=== PATIENT | female | born 1940 | race Caucasian/White ===

== ENCOUNTER → 2017-05-29 15:37 | Outpatient (CLI) | payer MEDICARE, SELFPAY ==
[2017-05-29 16:09] LABS: Absolute Lymphocyte Count 2.03 X10^3/ul (0.83-4.51); Basophil# 0.03 X10^3/uL; Basophil% 0.4 % (0-1); Eosinophil# 0.31 X10^3/uL; Eosinophils% 3.8 % (0-5); Hematocrit 33.7 % (37-47); Hemoglobin 9.8 g/dl (12.0-15.0); Lymphocyte # 2.03 X10^3/ul (4.0); Lymphocyte % 24.7 % (19-41); Mean Corp Hgb Conc 29.1 g/gl (32-36); Mean Corpuscular Hgb 29.3 pg (27.0-32.0); Mean Corpuscular Volume 100.9 fL (81-99); Monocyte# 0.81 X10^3/uL; Monocyte% 9.9 % (0-10); Neutrophil # 5.02 X10^3/uL (2.7-7.7); Neutrophil % 61.1 % (47-70); Platelet Count 307 K/mm3 (150-450); RBC Distribution Width CV 16.4 % (11.6-14.6); RBC Distribution Width SD 59.9 fl (35.1-43.9); Red Blood Count 3.34 M/mm3 (4.2-5.4); White Blood Count 8.2 K/mm3 (4.4-11.0)
[2017-05-29 16:54] LABS: POSITIVE COUNT NO; POSITIVE DIFFERENTIAL NO; POSITIVE MORPHOLOGY NO
[2017-05-29 17:15] LABS: Albumin, Serum 3.6 g/dL (3.2-5.0); BUN 35 mg/dL (7-18); BUN/Creat Ratio 15.6 RATIO (10-20); Calcium,Total 8.6 mg/dL (8.5-10.1); Chloride 106 mmol/L (98-107); Creatinine, Serum 2.25 mg/dL (0.55-1.02); EST Glomerular Filtration Rate 22 mL/min (>60); Est Glom Filt Rate - Afr Amer 27 mL/min (>60); Glucose 110 mg/dL (74-106); Magnesium 2.9 mg/dL (1.6-2.6); Phosphorus 3.8 mg/dL (2.5-4.9); Potassium 4.6 mmol/L (3.5-5.1); Sodium Level 139 mmol/L (136-145)
[2017-05-29 18:26] LABS: Microalbumin,Random Urine 89.2 mg/L (NO RANGE EST.); Microalbumin:Creatinine Ratio 111.4 mg/g CRE (<30 mg/g CRE)
[2017-05-30 08:49] LABS: PTHIN 97.5 pg/mL (18.4-80.1)
== END ==
PROVIDERS: Family Provider Family Medicine; PCP Family Medicine; Visit Provider Internal Medicine Nephrology
DX: N18.3 Chronic kidney disease, stage 3 (moderate) (principal); D63.1 Anemia in chronic kidney disease; E55.9 Vitamin D deficiency, unspecified; N25.81 Secondary hyperparathyroidism of renal origin
CPT/HCPCS: 36415; 80069; 82043; 82306; 82570; 83735; 83970; 85025

== ENCOUNTER 2017-09-01 09:28 | Outpatient (CLI) | payer MEDICARE, SELFPAY ==
[2017-09-01] VITALS (10 sets, daily range): BP systolic 124–171; BP diastolic 51–70; PULSE 59–63; RESP 12–16; TEMP 36.4–37.1; O2SAT 94–100
--- NOTE | 2017-09-01 16:47 | NURSING ---
blood infusions complete. iv removed. daughter escorting pt out at this time.
== END 2017-09-01 16:45 | disposition home or self-care (01) ==
LOC: MEDOUTP 09:28 → PCU 09:29
PROVIDERS: Family Provider Family Medicine; PCP Family Medicine; Visit Provider Internal Medicine Hematology & Oncology
DX: Z51.89 Encounter for other specified aftercare (principal); N18.4 Chronic kidney disease, stage 4 (severe); D63.1 Anemia in chronic kidney disease
CPT/HCPCS: 36430; 86850; 86900; 86920; 86922; J7040; P9016

== ENCOUNTER 2017-09-08 08:46 | Outpatient (CLI) | payer MEDICARE, SELFPAY ==
[2017-09-08] VITALS (8 sets, daily range): BP systolic 114–154; BP diastolic 51–64; PULSE 55–90; RESP 16–20; TEMP 36.4–36.9; O2SAT 98–100
--- NOTE | 2017-09-08 12:17 | NURSING ---
Prior to 2nd unit of PRBC this RN sat with pt for 15 minutes with infusion running at 15cc/hr. Pt denied any issues or discomfort. Vitals stable. Infusion increased to 200cc/hr
--- NOTE | 2017-09-08 14:35 | NURSING ---
lungs clear but slightly diminished-abd soft-voiding well without pain/burning d/c at this time after 2 units no new home meds no new allergies
== END 2017-09-08 14:48 | disposition home or self-care (01) ==
LOC: MEDOUTP 08:46 → MS3 08:47
PROVIDERS: Family Provider Family Medicine; PCP Family Medicine; Visit Provider Internal Medicine Hematology & Oncology
DX: Z51.89 Encounter for other specified aftercare (principal); N18.4 Chronic kidney disease, stage 4 (severe); D63.1 Anemia in chronic kidney disease
CPT/HCPCS: 36430; 86850; 86900; 86920; 86922; J7040; P9016

== ENCOUNTER 2017-10-08 07:32 | Day surgery (SDC) | payer MEDICARE, SELFPAY ==
[2017-10-08] VITALS (7 sets, daily range): BP systolic 140–158; BP diastolic 53–59; PULSE 58–60; RESP 14–16; TEMP 36.1–36.9; O2SAT 98–100; BMI 18.6
[2017-10-08] MEDS: Cefazolin 2 GM in 0.9% Normal Saline 100 ML IV (09:04)
[2017-10-08] MEDS: Bupivacaine Mpf 0.5% 30 ML VIAL (09:23)
--- NOTE | 2017-10-08 09:52 | PCM.OPRPT ---
Report of Operation Date of Procedure: 10/08/17 Pre-Operative Diagnosis: exhausted vascular access Post-Operative Diagnosis: exhausted vascular access. successful left IJ portacath. Surgery/Procedure Performed:: left IJ portacath with fluoro and ultrasound welt edge rounder: None Type of Anesthesia:: MAC Anesthesiologist: Raphael Roper - ASA3 Specimen's removed: none Estimated Blood Loss (mL): 7 Fluids Replaced: 100 Description of Procedure: The patient was brought to the operating suite. The left/right site was marked in the holding area and the patient concurred this was the planned operative site. Sign was performed verifying patient, site, position, skip antibiotic prophylaxis-2 g of Ancef and DVT prophylaxis with SCDs. Following IV sedation, the left neck and chest were prepped and draped in the usual fashion. Timeout was performed verifying patient, site, position. Local anesthetic was injected and ultrasound was used to identify the jugular vein. A remote pilot operator needle was inserted to the jugular vein under ultrasound guidance with return of venous blood. Next, under ultrasound guidance, a Seldinger needle was used to access the left internal jugular vein without difficulty. Under fluoroscopic control, a guidewire was inserted and advanced the SVC RA region. Local anesthetic was injected and incision made and pocket created for the port site. Next the catheter was tunneled from the wire site incision to the port site incision. Under fluoroscopic control introducer sheath and dilator were inserted over the wire. The wire and dilator removed. The catheter was fed through the introducer suture sheath and adjusted to the SVC RA region. There was good return of venous blood and easy inflow of saline through the system. Fluoroscopy demonstrated good positioning of the catheter. Next the catheter was cut to length affixed to the port with the locking ring and secured in the pocket with 2-2-0 Prolene sutures. Subcutaneous fat closed with interrupted 3-0 Vicryl suture. Skin closed with 4-0 Biosyn interrupted and running subcuticular sutures. Fluoroscopy demonstrated good position of the system. The port was accessed. There was good return of venous blood. Inflow of saline was easy. The port was then flushed with 3 cc of 100 unit per heparin solution. A dressing was applied. The patient was brought to recovery room in stable condition. Grafts/Implants Used: powerport [id number] exp - 01/13/2019 - Admit VTE Documentation VTE Present on Admission: No VTE Mechan Device Prophylaxis: SCD's
--- NOTE | 2017-10-08 09:55 | OP.PCM_ITS ---
Report of Operation Date of Procedure: 10/08/17 Pre-Operative Diagnosis: exhausted vascular access Post-Operative Diagnosis: exhausted vascular access. successful left IJ portacath. Surgery/Procedure Performed:: left IJ portacath with fluoro and ultrasound active directory specialist: None Type of Anesthesia:: MAC Anesthesiologist: Raphael Roper - ASA3 Specimen's removed: none Estimated Blood Loss (mL): 7 Fluids Replaced: 100 Description of Procedure: The patient was brought to the operating suite. The left/right site was marked in the holding area and the patient concurred this was the planned operative site. Sign was performed verifying patient, site, position, skip antibiotic prophylaxis-2 g of Ancef and DVT prophylaxis with SCDs. Following IV sedation, the left neck and chest were prepped and draped in the usual fashion. Timeout was performed verifying patient, site, position. Local anesthetic was injected and ultrasound was used to identify the jugular vein. A helicopter pilot needle was inserted to the jugular vein under ultrasound guidance with return of venous blood. Next, under ultrasound guidance, a Seldinger needle was used to access the left internal jugular vein without difficulty. Under fluoroscopic control, a guidewire was inserted and advanced the SVC RA region. Local anesthetic was injected and incision made and pocket created for the port site. Next the catheter was tunneled from the wire site incision to the port site incision. Under fluoroscopic control introducer sheath and dilator were inserted over the wire. The wire and dilator removed. The catheter was fed through the introducer suture sheath and adjusted to the SVC RA region. There was good return of venous blood and easy inflow of saline through the system. Fluoroscopy demonstrated good positioning of the catheter. Next the catheter was cut to length affixed to the port with the locking ring and secured in the pocket with 2-2-0 Prolene sutures. Subcutaneous fat closed with interrupted 3-0 Vicryl suture. Skin closed with 4-0 Biosyn interrupted and running subcuticular sutures. Fluoroscopy demonstrated good position of the system. The port was accessed. There was good return of venous blood. Inflow of saline was easy. The port was then flushed with 3 cc of 100 unit per heparin solution. A dressing was applied. The patient was brought to recovery room in stable condition. Grafts/Implants Used: powerport [id number] lot [id number] exp - 01/13/2019 - Admit VTE Documentation VTE Present on Admission: No VTE Mechan Device Prophylaxis: SCD's
--- NOTE | 2017-10-08 09:55 | RAD_ITS ---
STUDY: X-RAY CHEST REASON FOR EXAM: Female, 77 years old. Post port placement. TECHNIQUE: Single AP portable view of the chest. COMPARISON: April 10, 2015. FINDINGS: There is a left jugular Port-A-Cath with its tip at the atriocaval junction. There is no pneumothorax. There is persistent elevation of the right hemidiaphragm. The lungs appear clear. There is no demonstrated pleural abnormality. Normal size heart. Normal mediastinum and yeyo. Normal visualized pulmonary arteries. Normal visualized aortic arch and descending thoracic aorta. The thoracic spine is obscured by the mediastinum. There is degenerative osteoarthritis of the bilateral shoulders. There is no demonstrated abnormality of the visualized soft tissue structures of the upper abdomen. RAD/Chest 1 View (Portable) IMPRESSION: Left jugular Port-A-Cath without pneumothorax or other interval change. Electronically Signed: Ramon Polk DO at 11:10 EDT Tel [phone], Service support ,
--- NOTE | 2017-10-08 09:57 | PCM.DC.POR ---
Discharge Diet: No Restrictions - Pain medication may cause nausea. You should typically eat light foods as you take your pain medication. Discharge Activity: Return to Normal Activity, May Shower - with the bandage in place 1-2 days after surgery. DO NOT SHOWER WHEN YOUR PORT IS ACCESSED. Additional Activity Instructions:: May not drive, work with heavy equipment, or sign legal documents for [address] if you are no longer taking narcotic pain medications. You may drive when you are no longer taking pain medications. Additional Dressing/Incision Instructions:: Leave the bandage on for 2-3 days. When you remove the bandage, leave the steri-strips intact until they fall off. Allergies/Adverse Reactions: Allergies adalimumab [From Humira] Allergy (Verified 07/26/17 13:43) Rash ciprofloxacin HCl [From Cipro] Allergy (Verified 07/26/17 13:43) Unknown latex Allergy (Verified 07/26/17 13:43) Rash levofloxacin [From Levaquin] Allergy (Verified 07/26/17 13:43) Unknown lisinopril Allergy (Verified 07/26/17 13:43) Other COUGH Methotrexate Analogues Allergy (Verified 07/26/17 13:43) Hives naproxen Allergy (Verified 07/26/17 13:43) Unknown potassium clavulanate [From Augmentin] Allergy (Verified 07/26/17 13:43) Unknown Sulfa (Sulfonamide Antibiotics) Allergy (Verified 07/26/17 13:43) Unknown amlodipine Adverse Reaction (Severe, Verified 07/26/17 13:43) Unknown haloperidol lactate [From Haldol] Adverse Reaction (Unknown, Verified 07/26/17 13:43) agitation amoxicillin trihydrate [From Augmentin] Adverse Reaction (Verified 07/26/17 13:43) Upset Stomach hydromorphone HCl [From Dilaudid] Adverse Reaction (Verified 07/26/17 13:43) Other HALLUCINATIONS hydroxychloroquine sulfate [From Plaquenil] Adverse Reaction (Verified 07/26/17 13:43) Other VISION ISSUES Medications to take at Discharge Atorvastatin Calcium [Lipitor] 20 mg PO QHS 04/01/15 Isosorbide Mononitrate [Imdur] 30 mg PO DAILY 04/01/15 Metoprolol Tartrate [Lopressor (beta elena)] 100 mg PO BID 04/01/15 Multivit-Min/FA/Lycopen/Lutein [Centrum Silver Tablet] 1 ea PO DAILY 04/01/15 Aspirin [Aspirin, Baby] 81 mg PO DAILY@0800 01/09/16 Hydrocodone/Acetaminophen [Hydrocodone-Acetamin 5-325 mg] 1 ea PO DAILY PRN 01/09/16 Fluticasone 0.05% [Flonase Nasal [place]] 2 spray NASAL DAILY 12/30/16 Nitroglycerin [Nitrostat] 0.4 mg SL PRN PRN 12/30/16 Potassium Chl Eff (For Liquid) [Effer-K 25 Meq Tablet Eff] 25 meq PO DAILY 12/30/16 Hydrochlorothiazide [Hctz] 25 mg PO DAILY 02/16/17 Acetaminophen [Tylenol Tablet] 650 mg PO Q4H PRN PRN tab 02/18/17 cholecalciferol (vitamin D3) 1,000 unit tablet 5,000 unit PO DAILY tab 07/26/17 Cetirizine HCl [Zyrtec] 10 mg PO DAILY 10/08/17 Minoxidil [Loniten] 2.5 mg PO DAILY 10/08/17 Ranolazine [Ranexa] 1,000 mg PO DAILY 10/08/17 Primary Care Physician: Demarco Lopez MD [Primary Care Provider] - Please Follow Up With: Chavez Weiner MD - [phone] When: Please plan to follow up in 7 days in the office.
== END 2017-10-08 11:57 | disposition home or self-care (01) ==
LOC: SDC 07:33 → AC 07:33
PROVIDERS: Family Provider Family Medicine; PCP Family Medicine; Visit Provider Surgery
PROC: (CPT 36561; principal; 2017-10-08 09:20)
DX: Z45.2 Encounter for adjustment and management of vascular access device (principal); D64.9 Anemia, unspecified; I12.9 Hypertensive chronic kidney disease with stage 1 through stage 4 chronic kidney disease, or unspecified chronic kidney disease; N18.3 Chronic kidney disease, stage 3 (moderate); I25.2 Old myocardial infarction; Z95.5 Presence of coronary angioplasty implant and graft; Z86.718 Personal history of other venous thrombosis and embolism
CPT/HCPCS: 36561; 71045; 77001; J7040; J7120; C1788

== ENCOUNTER 2017-10-12 18:16 | Outpatient (CLI) | payer MEDICARE, SELFPAY ==
[2017-10-13] VITALS (9 sets, daily range): BP systolic 114–150; BP diastolic 40–57; PULSE 59–68; RESP 16–18; TEMP 36.6–37.1; O2SAT 95–100
[2017-10-13] MEDS: 0.9% NaCl Peripheral Flush Adult/Peds IV ×2 (15:09→18:40)
--- NOTE | 2017-10-13 18:48 | NURSING ---
FLUSHED PORT W/ HEPARIN. DE-ACCESSED PORT-NO BLEEDING. STERI STRIPS STILL INTACT. NO PAIN.
== END 2017-10-13 18:55 | disposition home or self-care (01) ==
LOC: MEDOUTP 10-13 10:35 → PCU 10-13 10:36
PROVIDERS: Family Provider Family Medicine; PCP Family Medicine; Visit Provider Internal Medicine Hematology & Oncology
DX: Z51.89 Encounter for other specified aftercare (principal); N18.4 Chronic kidney disease, stage 4 (severe); D63.1 Anemia in chronic kidney disease
CPT/HCPCS: 36430; 86850; 86900; 86920; 86922; P9016; A4216

== ENCOUNTER 2017-10-13 10:35 | Outpatient (CLI) | payer MEDICARE, SELFPAY | END 2017-10-13 18:55 | disposition home or self-care (01) | LOC: MEDOUTP 10-23 08:07 | PROVIDERS: Family Provider Family Medicine; PCP Family Medicine; Visit Provider Internal Medicine Hematology & Oncology | DX: Z51.89 Encounter for other specified aftercare (principal) ==

== ENCOUNTER 2017-11-29 10:45 | Day surgery (SDC) | payer MEDICARE, SELFPAY ==
[2017-11-29] VITALS (10 sets, daily range): BP systolic 132–164; BP diastolic 46–66; PULSE 58–66; RESP 14–16; TEMP 36.3–36.6; O2SAT 96–100; BMI 18.8
--- NOTE | 2017-11-29 | IMM_PTH ---
PATIENT: JOSELINE NAVARRETE LOC: EN U#:[id number] AGE/SX: 77/F ROOM: RE11/29/[address]: Dr. Pao Mi MD : 1940 BED: DIS: 11/29/2017 SPEC #: [id number] RECD: 12/03/17 14:14 STATUS: [facility] REQ #: [id number] BRETT: 11/29/17 00:[address]: Pao Mi DEPT: IMMUNOHISTOCHEMISTRY RECD BY: Renata Miller ENTERED: 12/03/17 14:15 SP TYPE: IMMUNO OTHR DR: Dr. Demarco Lopez MD Tissues: A - Stomach, NOS Procedures: H Pylori (initial) PHYSICIAN & INSTITUTION [place] [id number] SPECIMEN INFORMATION: Tissue Source: A ? Antrum of stomach Clinical Info: Heme-positive stool, anemia Specimen Number: [id number] CPT code: 11526 METHODOLOGY: Deparaffinized sections of prefer/formalin-fixed tissue or PAP/DQ stained slides are incubated with monoclonal/polyclonal antibodies/oligonucleotide probes. Localization is made via biotin free immunoperoxidase method. Appropriate controls are performed and reacted as expected. Results on target cell population are indicated in the following table: RESULTS: ANTIBODY / CLONE RESULT Block A H Pylori (polyclonal) negative These tests were developed and their performance characteristics determined by [facility]. They may not have been cleared or approved by the U.S. Food and Drug Administration. The FDA has determined that such clearance or approval is not necessary. INTERPRETATION: A. Antrum of stomach, biopsy: Negative for Helicobacter pylori organisms. SJ:kei 12/04/17
--- NOTE | 2017-11-29 12:00 | EGD_PTH ---
PATIENT: JOSELINE NAVARRETE LOC: EN U#:[id number] AGE/SX: 77/F ROOM: RE11/29/[address]: Dr. Pao Mi MD : 1940 BED: DIS: 11/29/2017 SPEC #: [id number] RECD: 11/29/17 14:22 STATUS: [facility] GERMAIN #: [id number] BRETT: 11/29/17 12:[address]: Pao Mi DEPT: SURGICAL PATHOLOGY RECD BY: Cheryl Cisneros ENTERED: 11/30/17 08:47 SP TYPE: EGD BIOPSY OT DR: Dr. Demarco Lopez MD Tissues: A - Gastric mucous membrane B - COLON BIOPSY Procedures: Surgery Specimen Level IV HEADER OPERATION: Colonoscopy, EGD ([facility]) PRE-OP DIAGNOSIS: Heme-positive stools and anemia TISSUE SUBMITTED: A. Antrum of stomach, B. Random colonic biopsies of mucosa MICROSCOPIC DIAGNOSIS A. Gastric antrum, biopsy: Mild gastritis. B. Colon, random biopsy: Fragments of colonic mucosa with a few pigment laden macrophages, consistent with melanosis coli. SJ:kei 12/03/17 COMMENT A. The results of immunohistochemistry for Helicobacter pylori will be reported separately ([id number]). MICROSCOPIC DESCRIPTION Slides are reviewed. A. The specimen shows fragments of gastric mucosa with chronic inflammatory cell infiltrates in the lamina propria consisting of lymphocytes and plasma cells, consistent with mild chronic gastritis. GROSS DESCRIPTION A - Received in fixative is one container labeled with the patient's name and designated gastric antrum. The specimen consists of multiple irregular fragments of light neely soft tissue that in aggregate measure 0.4 x 0.2 x 0.1 cm. The specimen is totally submitted in one cassette. B - Received in fixative is one container labeled with the patient's name and designated random mucosa. The specimen consists of two irregular fragments of light neely soft tissue that in aggregate measure 0.3 x 0.3 x 0.1 cm. The specimen is totally submitted in one cassette. / AM:kei 11/30/17 TC:3 CPT: 75319 x2
--- NOTE | 2017-11-30 12:08 | PCM.OPRPT ---
Report of Operation Date of Procedure: 11/29/17 Pre-Operative Diagnosis: anemia, heme positive stools Post-Operative Diagnosis: same, friable mucosa of right colon - no definitive lesions seen Surgery/Procedure Performed:: colonoscopy with control of bleeding and mucosal biopsies. esophagogastroduodenoscopy with biopsies Description of Surgical Findings:: right colon with bleeding site noted at ileocecal valve area and right hepatic flexure area - bleeding stopped with injection of epinephrine, no definitive lesion seen, active bleeding as evidenced with bright red blood stopped with this, blood flecks noted throughout colon - mostly right colon, diverticulosis, hemorrhoids, minimal antritis with biopsies taken, very small hiatal hernia - no esophagitis seen, no lesions seen in duodenum Type of Anesthesia:: MAC Anesthesiologist: Donya Beckman Specimen's removed: mucosal biopsy of antrum, random mucosal biopsies of right colon Estimated Blood Loss (mL): minimal Fluids Replaced: see anesthesia note Description of Procedure: After informed consent was given, the patient was brought to the endoscopy suite. Appropriate time out protocol was followed. She was placed in the supine position. Appropriate cardiac, blood pressure, and pulse oximetry monitoring was placed. After stable vital signs were noted, the patient was given intravenous conscious sedation. The posterior pharynx was sprayed with lidocaine spray times two and a bite block was placed. The patient was then placed in the left lateral decubitis position. The upper endoscope was lubricated and inserted into the patients mouth and then carefully placed into the patients throat. The patient was asked to swallow and the endoscope was then easily advanced into the patients esophagus. The endoscope was further advanced down into the patients stomach, then past the pylorus, then past the duodenal bulb and then to the second portion of the duodenum. There were no lesions noted in the duodenum. The endoscope was then retracted back into the stomach. Very slight spotty erythema was noted of the antrum of the stomach and therefore mucosal biopsies were taken with cold grasper forceps. A retroflex view of the stomach revealed no evidence of any masses. A small hiatal hernia was noted. No ulcers, no strictures, no suspicious lesions were noted. The endoscope was retracted into the esophagus. The gastroesophageal junction appeared normal. The remainder of the esophagus was normal. The upper endoscope was removed intact. The next procedure was the colonoscopy. The colonoscope was lubricated and carefully inserted into the patients anus. It was then advanced into the rectum, then into the sigmoid colon, then into the left descending colon, past the splenic flexure, into the transverse colon, past the hepatic flexure, then down into the right descending colon and into the cecum. The cecum was identified by confluence of the tenae coli, appendiceal orifice, identification of the ileocecal valve, external pressure, and transillumination. Of note, there was blood flecks noted throughout the colon, however, bright red blood was noted in the right colon. The terminal ileum was intubated - no blood was noted coming from the small intestine. A small punctate site of active bleeding was noted at the ileocecal valve area, the bleeding was stopped with injections of epinephrine. No definitive lesion was noted at this site. The patient was noted to have a small AVM of the right colon, however, no active bleeding or evidence of bleeding was noted at this site. At the right hepatic flexure, there was another site noted of punctate active bleeding, this was controlled with injections of epinephrine and no bleeding was noted after this was done. Because no actual definitive lesion was noted - random mucosal biopsies (of the right colon) were taken with hot grasper forceps to rule out idiopathic colitis or ischemic colitis/etc. Because of the bleeding, injections of epinephrine were done at each of these sites to ensure no active bleeding. No active bleeding was noted. The colonoscope was slowly retracted back and the entire colonic mucosa was examined. There was no evidence of extrinsic compression and no inflammatory changes were noted. No intraluminal obstructing lesions, no strictures, and no ulcers were noted. No masses or polyps were noted. There were multiple small and large diverticula noted in the sigmoid colon, no bleeding was noted at any of these sites. Retroflex view in the rectum revealed no lesions in the rectal vault except for hemorrhoidal changes. The colonoscope was removed intact. Patient tolerated procedure well. - Complications none noted
== END 2017-11-29 15:09 | disposition home or self-care (01) ==
LOC: EN 10:46 → AC 10:47
PROVIDERS: Family Provider Family Medicine; PCP Family Medicine; Visit Provider Surgery
PROC: 0DJD8ZZ Inspection of Lower Intestinal Tract, Via Natural or Artificial Opening Endoscopic (ICD-10-PCS; CPT 45378; principal; 2017-11-29 11:55)
DX: K29.70 Gastritis, unspecified, without bleeding (principal); K44.9 Diaphragmatic hernia without obstruction or gangrene; Q27.33 Arteriovenous malformation of digestive system vessel; K64.8 Other hemorrhoids; K57.30 Diverticulosis of large intestine without perforation or abscess without bleeding; I12.9 Hypertensive chronic kidney disease with stage 1 through stage 4 chronic kidney disease, or unspecified chronic kidney disease; N18.4 Chronic kidney disease, stage 4 (severe); D63.1 Anemia in chronic kidney disease; I25.10 Atherosclerotic heart disease of native coronary artery without angina pectoris; E78.00 Pure hypercholesterolemia, unspecified; G62.9 Polyneuropathy, unspecified; M06.9 Rheumatoid arthritis, unspecified; M35.00 Sjogren syndrome, unspecified; I25.2 Old myocardial infarction; Z78.0 Asymptomatic menopausal state; Z86.718 Personal history of other venous thrombosis and embolism; Z87.19 Personal history of other diseases of the digestive system; Z87.440 Personal history of urinary (tract) infections; Z95.5 Presence of coronary angioplasty implant and graft; Z79.82 Long term (current) use of aspirin; Z79.899 Other long term (current) drug therapy
CPT/HCPCS: 43239; 45380; 88305; 88342; J7120; A4216; J2405

== ENCOUNTER 2017-12-08 10:22 | Outpatient (CLI) | payer MEDICARE, SELFPAY ==
[2017-12-08] VITALS (11 sets, daily range): BP systolic 132–196; BP diastolic 39–70; PULSE 60–68; RESP 16–20; TEMP 36.4–37.1; O2SAT 97–100; BMI 19.6
[2017-12-08] MEDS: Furosemide 20 MG/2 ML VIAL IV (14:42)
== END 2017-12-08 18:41 | disposition home or self-care (01) ==
LOC: MEDOUTP 10:22 → ICU 10:26
PROVIDERS: Family Provider Family Medicine; PCP Family Medicine; Visit Provider Internal Medicine Hematology & Oncology
DX: Z51.89 Encounter for other specified aftercare (principal); N18.4 Chronic kidney disease, stage 4 (severe); D63.1 Anemia in chronic kidney disease
CPT/HCPCS: 36430; 86644; 86850; 86900; 86920; 86922; P9016; J1940

== ENCOUNTER → 2018-02-18 06:32 | Outpatient (CLI) | payer MEDICARE, SELFPAY ==
--- NOTE | 2018-02-18 11:21 | STRESSREP_ITS ---
Stress Test Report Pharmacologic myocardial perfusion stress test. 77-year-old lady with a history of chest pain and coronary artery disease. Stress protocol: Resting EKG demonstrates sinus rhythm with a rate of 65 bpm right bundle branch block is noted. 0.4 mg of regadenoson was infused per usual protocol followed by rapid intravenous saline flush injection continuous EKG monitoring was performed. The maximum heart rate attained was 81 bpm which was 57% of maximum predicted heart rate the maximum workload was 1 metabolic equivalent. At rest there were no ST or T wave changes were noted at peak infusion no ST or T wave changes were noted. Patient maintained sinus rhythm throughout the recording. The resting blood pressure 122/80 with a final blood pressure 144/70. Myocardial perfusion protocol. 10.6 mCi of technetium 99m sestamibi was injected at rest. 0.4 mg of regadenoson was infused per usual protocol. At peak infusion 31.2 mCi of t echnetium 99m sestamibi was injected stress images were obtained stress and rest images were reconstructed and compared in the short axis vertical long horizontal long axis. Gated images were also obtained Perfusion SPECT analysis: Review of the stress images demonstrate normal uptake of tracer noted in all areas of myocardium except for a focal area at the apex. This defect is present on the stress and rest images to a similar extent suggestive of a previous focal apical infarct. No reversibility is noted suggest ischemia. Gated SPECT analysis: Fraction is 52% with mild hypokinesis of the apex. Conclusion: Pharmacologic myocardial perfusion stress test with evidence of previous apical infarct. Apical hypokinesis noted. Preserved ejection fraction.
== END ==
PROVIDERS: Family Provider Family Medicine; PCP Family Medicine; Referring Provider Physician Assistant Medical; Visit Provider Physician Assistant Medical
DX: R07.9 Chest pain, unspecified (principal)
CPT/HCPCS: 78452; 93017; A9500; A4216; J2785

== ENCOUNTER 2018-06-06 16:48 | Observation (INO) | payer MEDICARE, SELFPAY ==
[2018-05-09 14:41] VITALS: BMI 19.1
[2018-06-06] VITALS (7 sets, daily range): BP systolic 142–198; BP diastolic 60–93; PULSE 67–74; RESP 14–19; TEMP 36.2–37; O2SAT 97–98; BMI 19.1; BMI 19.5; BMI 19.6
--- NOTE | 2018-06-06 17:32 | RAD_ITS ---
STUDY: X-RAY CHEST REASON FOR EXAM: Female, 77 years old. High blood pressure TECHNIQUE: PA and lateral views of the chest. COMPARISON: 10/08/2017 FINDINGS: There is hyperinflation of the lungs consistent with chronic obstructive lung disease (COPD). Elevated right hemidiaphragm. Left chest wall Mediport with tip in the cavoatrial junction. No acute airspace disease. There is borderline cardiomegaly. Normal mediastinum and yeyo. Normal visualized pulmonary arteries. Normal visualized aortic arch and descending thoracic aorta. Normal visualized thoracic spine. Normal visualized ribs, clavicles, and shoulders. There is no demonstrated abnormality of the visualized soft tissue structures of the upper abdomen. RAD/Chest PA and Lateral IMPRESSION: COPD. Elevated right hemidiaphragm. No acute airspace disease. Electronically Signed: Goyo Tobias DO at 19:09 EST Tel , Service support ,
--- NOTE | 2018-06-06 17:32 | EKG12_ITS ---
Test Reason : PALPS Blood Pressure : / mmHG Vent. Rate : 069 BPM Atrial Rate : 069 BPM P-R Int : 168 ms QRS Dur : 150 ms QT Int : 446 ms P-R-T Axes : 056 -66 071 degrees QTc Int : 477 ms Normal sinus rhythm Possible Left atrial enlargement Right bundle branch block Left anterior fascicular block Bifascicular block Left ventricular hypertrophy with repolarization abnormality Cannot rule out Septal infarct , age undetermined Abnormal ECG Confirmed by BÁRBARA FRANKLIN MD ([id number]), photograph editor DAWNA LLOYD ([id number]) on 06/10/2018 5:13:26 PM Also confirmed by CRISTAL ALFORD MD ([id number]), photograph editor DAWNA LLOYD ([id number]) on 06/10/2018 5:14:06 PM Referred By: Confirmed By:CRISTAL ALFORD MD
--- NOTE | 2018-06-06 18:42 | ED.DCSUM_ITS ---
- ER Visit Summary Date of Service: 06/06/18 Chief Complaint: Hypertension History of Present Illness: The patient is a 77 F who presents with an elevated blood pressure that began last night. Patient states it has gradually gotten worse. Patient saw her primary care physician today. Patient states her blood pressure at her primary care physician's office was 196/91. Patient admits to some mild chest pain and shortness of breath. Patient also admits to a mild headache. Patient denies any visual changes. Patient denies any nausea or vomiting. Patient denies any fevers or chills. Physical Examination: Vital signs are stable. Patient is afebrile. Patient is in no acute distress. Oral mucosa is pink and moist. Neck is supple. Trachea is midline. There is no JVD noted. Heart was regular rate and rhythm. Lungs are clear and equal bilateral. Abdomen is soft. Bowel sounds are normal. There is no tenderness. There is no guarding noted. Skin is warm dry. Cranial nerves II through XII are intact. There are no focal motor or sensory deficits noted. The remaining physical exam is within normal limits. Test Results: EKG showed a normal sinus rhythm with a rate of 69. There is a right bundle branch block and left anterior fascicular block. This is unchanged compared to previous EKG dated 01/10/2016. CBC showed a mild anemia with a hemoglobin of 11.2 and hematocrit 35.5 creatinine was 1.79 but this is improved compared to previous results. Troponin was slightly elevated at 0.055. Urinalysis showed leukocyte esterase of 100, positive nitrites 5-10 white blood cells and 2+ bacteria. Emergency Department Course and Treatment: Patient was given a dose of labetalol here. Patient's blood pressure improved to 150 systolic. Patient's blood pressure then started to increase again and went back up to 200 systolic. On reevaluation, patient's blood pressure is 162/71. Patient was given aspirin and placed on nitroglycerin paste. Case was discussed with the hospitalist. He will admit the patient to his service. Patient understood and was agreeable with the plan. All questions were answered. Disposition: Admit to hospital Impression: 1. Elevated troponin 2. Hypertension This note was generated with [employer] dictation software. It may contain incorrect words, spelling, and punctuation that were not noted in review of the chart p rior to signing ED Disposition - Plan for ED Patient: Disposition: Acute Care Hospital [facility] Diagnosis: Elevated troponin, Hypertension Referrals: Demarco Lopez MD [Primary Care Provider] -
[2018-06-06 19:01] LABS: Absolute Lymphocyte Count 1.52 X10^3/ul (0.83-4.51); Absolute Neutrophil Count 5.8 X10^3/uL (2.0-7.7); Basophil# 0.02 X10^3/uL; Basophil% 0.2 % (0-1); Eosinophil# 0.26 X10^3/uL; Hematocrit 35.5 % (37-47); Hemoglobin 11.2 g/dl (12.0-15.0); Lymphocyte # 1.52 X10^3/ul (4.0); Lymphocyte % 17.7 % (19-41); Mean Corp Hgb Conc 31.5 g/gl (32-36); Mean Corpuscular Hgb 31.7 pg (27.0-32.0); Mean Corpuscular Volume 100.6 fL (81-99); Mean Platelet Vol. 11.8 fl (6.2-12.0); Monocyte# 0.98 X10^3/uL; Monocyte% 11.4 % (0-10); Neutrophil # 5.78 X10^3/uL (2.7-7.7); Neutrophil % 67.4 % (47-70); POSITIVE COUNT NO; POSITIVE DIFFERENTIAL NO; POSITIVE MORPHOLOGY NO; Platelet Count 161 K/mm3 (150-450); RBC Distribution Width CV 15.1 % (11.6-14.6); RBC Distribution Width SD 54.5 fl (35.1-43.9); Red Blood Count 3.53 M/mm3 (4.2-5.4); White Blood Count 8.6 K/mm3 (4.4-11.0)
[2018-06-06 19:20] LABS: Anion Gap 7 (5-15); BUN 37 mg/dL (7-18); BUN/Creat Ratio 20.7 RATIO (10-20); Calcium,Total 9.4 mg/dL (8.5-10.1); Chloride 108 mmol/L (98-107); Creatinine, Serum 1.79 mg/dL (0.55-1.02); EST Glomerular Filtration Rate 29 mL/min (>60); Est Glom Filt Rate - Afr Amer 35 mL/min (>60); Estimated Creatinine Clearance 21.33 ml/min; Glucose 128 mg/dL (74-106); Potassium 4.1 mmol/L (3.5-5.1); Sodium Level 140 mmol/L (136-145)
[2018-06-06 19:30] LABS: Mucous, Urine 0 SEEN /hpf (<or=2+); Red Blood Cells-Urine 0 SEEN /hpf (0-5)
[2018-06-06 19:40] LABS: Color, Urine Yellow (Yellow); Glucose, Dipstick Normal (Normal); Ketone-Dipstick Negative (Negative); Leukocyte Esterase-Dipstick 100 /ul (Negative); Nitrite-Dipstick Positive (Negative); Occult Blood-Urine 10 /ul (Negative); Protein-Dipstick 100 mg/dl (Negative); Urine Bilirubin Dipstick Negative (Negative); Urine Clarity Sl. Cloudy (Clear); Urine Urobilinogen Normal (Normal); Urine pH 6.5 (5.0 - 8.0)
[2018-06-06 19:48] LABS: Bacteria 2+ /hpf (None Seen); White Blood Cells 5-10 SEEN /hpf (0-5)
[2018-06-06 19:49] LABS: Squamous Epithelial Cells - UA 0-5 SEEN /hpf (5-10)
--- NOTE | 2018-06-06 20:33 | PCM.HP.STD ---
Problem List (1) Hypertensive emergency Status: Acute (2) Elevated troponin Status: Acute (3) Anemia Status: Chronic History of Present Illness Date of Admission: 06/06/18 Chief Complaint: elevated blood pressure The patient is a 77 year old F with a significant history of CAD; CHF; hypertension; arthritis; Sjogren; and chronic anemia who follows up with Dr. 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 Patient went to Dr. Azul office for blood work for her chronic anemia. Whiles at Dr. Azul office her systolic blood pressure was in the 190s. Patient was advised to call her PCP. Subsequently her PCPs office advised her to come to the emergency department. Associated with her symptoms was a funny feeling in her chest; shortness of breath and headache. At the emergency department patient was found to have severely elevated blood pressure of 198/89. Patient was given labetalol IV. While at our emergency department she reported that her chest pain had resolved. Troponin level at emergency department was elevated. Patient was found to have abnormal urinalysis at the emergency department. Patient reports no urinary symptoms but she reports itchiness at her vaginal area. Past Medical History Past Medical History (Chronic Problems): Chronic Problems (Last Reviewed 06/07/18 @ 04:05 by Jose A Raines MD) Anemia (Chronic) Atherosclerotic heart disease of [place] coronary artery without angina pectoris (Chronic) Hx of right coronary artery stent placement (Chronic) PTCA & NGIHAT stent to ramus intermidius & NIGHAT to RCA, 05/21/09 @ [facility]; Congestive heart failure (Chronic) Diastolic dysfunction (Chronic) Left ventricular hypertrophy (Chronic) Chronic kidney disease (CKD), stage III (moderate) (Chronic) CAD (coronary artery disease) (Chronic) Status post remote stenting Rheumatoid arthritis (Chronic) Sjoegren syndrome (Chronic) Hypertension (Chronic) Hyperlipemia (Chronic) GI (gastrointestinal bleed) (Chronic) Medical History: Medical History (Last Reviewed 06/07/18 @ 04:05 by Jose A Raines MD) Atherosclerotic heart disease of [place] coronary artery without angina pectoris (Chronic) I25.10 Congestive heart failure (Chronic) I50.9 Diastolic dysfunction (Chronic) I51.9 Left ventricular hypertrophy (Chronic) I51.7 Chronic kidney disease (CKD), stage III (moderate) (Chronic) CAD (coronary artery disease) (Chronic) I25.10 Status post remote stenting Hypertension (Chronic) I10 Hyperlipemia (Chronic) E78.5 ARF (acute renal failure) (Acute) Anemia D64.9 Shortness of breath R06.02 Syncope and collapse R55 Allergies adalimumab [From Humira] Allergy (Verified 06/06/18 16:52) Rash ciprofloxacin HCl [From Cipro] Allergy (Verified 06/06/18 16:52) Unknown latex Allergy (Verified 06/06/18 16:52) Rash levofloxacin [From Levaquin] Allergy (Verified 06/06/18 16:52) Unknown lisinopril Allergy (Verified 06/06/18 16:52) Other COUGH Methotrexate Analogues Allergy (Verified 06/06/18 16:52) Hives naproxen Allergy (Verified 06/06/18 16:52) Unknown potassium clavulanate [From Augmentin] Allergy (Verified 06/06/18 16:52) Unknown Sulfa (Sulfonamide Antibiotics) Allergy (Verified 06/06/18 16:52) Unknown amlodipine Adverse Reaction (Severe, Verified 06/06/18 16:52) Unknown haloperidol lactate [From Haldol] Adverse Reaction (Unknown, Verified 06/06/18 16:52) agitation amoxicillin trihydrate [From Augmentin] Adverse Reaction (Verified 06/06/18 16:52) Upset Stomach hydromorphone HCl [From Dilaudid] Adverse Reaction (Verified 06/06/18 16:52) Other HALLUCINATIONS hydroxychloroquine sulfate [From Plaquenil] Adverse Reaction (Verified 06/06/18 16:52) Other VISION ISSUES Home Medications: Ambulatory Orders Medication Instructions Recorded Isosorbide Mononitrate [Imdur] 30 mg PO DAILY 04/01/15 Metoprolol Tartrate [Lopressor 50 mg PO BID 04/01/15 (beta elena)] Multivit-Min/FA/Lycopen/Lutein 1 ea PO DAILY 04/01/15 [Centrum Silver Tablet] Fluticasone 0.05% [Flonase Nasal 2 spray NASAL DAILY PRN 12/30/16 [place]] Potassium Chl Eff (For Liquid) 12.5 meq PO DAILY 12/30/16 [Effer-K 25 Meq Tablet Eff] Hydrochlorothiazide [Hctz] 25 mg PO DAILY 02/16/17 ranolazine ER 1,000 mg 1,000 mg PO DAILY #90 tab 01/11/18 tablet,extended release,12 hr nitroglycerin 0.4 mg sublingual 0.4 mg SUBLINGUAL PRN PRN #25 tab 01/31/18 tablet Cholecalciferol (Vitamin D3) 5,000 unit PO DAILY 06/06/18 [Vitamin D3] Cyanocobalamin (Vitamin B-12) 1,000 mcg PO DAILY 06/06/18 [B-12] Vit C/E/Zn/Coppr/Lutein/Zeaxan 1 each PO BID 06/06/18 [Preservision Areds 2 Softgel] Surgical History: Surgical History (Last Reviewed 06/07/18 @ 04:05 by Jose A Raines MD) Hx of right coronary artery stent placement (Chronic) Z95.5 PTCA & NIGHAT stent to ramus intermidius & NIGHAT to RCA, 05/21/09 @ [facility]; Surgical History: angioplasty, - - Carpal tunnel syndrome Smoking Status: Never smoker Alcohol: None - *Family History Maternal Family History: Family History (Last Reviewed 05/09/18 @ 15:13 by Nahid Hernandez MD) Father No problems noted. History Items: Cancer - breast, - Paternal Family History: Family History (Last Reviewed 05/09/18 @ 15:13 by Nahid Hernandez MD) Father No problems noted. History Items: Cancer - breast, - Review of Systems Constitutional: Denies: Chills, Fever, Weight Change HEENT: Reports: Head Aches. Denies: Sinus Congestion, Sinus Drainage Cardiovascular: Reports: Chest Pain. Denies: Palpitations Respiratory: Reports: Shortness of Breath. Denies: Cough, Sputum production Gastrointestinal: Denies: Abdominal Pain, Nausea, Vomiting Genitourinary: Denies: Dysuria Musculoskeletal: Denies: Muscle pain Skin: Denies: Rash, Wounds Neurological: Denies: Numbness, Tingling, Focal weakness Psychiatric: Denies: Anxiety, Depression, Homicidal Ideations, Suicidal Ideations Hematologic/ Lymphatic: Denies: Easy Bruising, Easy Bleeding VTE Information - Inpt Only VTE Present on Admission: No VTE Mechan Device Prophylaxis: None VTE Pharm Prophylaxis ordered?: Yes Patient Problems: Active and Suspected Problems (Last Reviewed 06/07/18 @ 04:05 by Jose A Raines MD) Elevated troponin (Acute) Hypertensive emergency (Acute) - Physical Exam General: Alert, Oriented x3, Cooperative HEENT: Atraumatic, PERRLA, EOMI, Normocephalic Neck: Supple, Trachea Midline Lungs: Clear to auscultation, Normal air movement Cardiovascular: Regular rate, No murmurs Abdomen: Bowel Sounds Present, Soft, Non Tender Extremities: No edema, Capillary Refill Less than 3 Seconds Skin: No rashes, No breakdown Musculoskeletal: No Tenderness to Palpation of Joints or Extremities Neurological: Neuro grossly intact Psych/Mental Status: Normal Affect, Appropriate Vital Signs Temp Pulse Resp BP Pulse Ox 97.1 F L 69 19 H 191/72 H 98 06/06/18 16:48 06/06/18 19:24 06/06/18 19:24 06/06/18 19:24 06/06/18 19:24 Oxygen Delivery Method Room Air Weight: 52.163 kg Body Mass Index (BMI) 19.1 Laboratory Tests Past 24 Hrs 06/06/18 06/06/18 06/06/18 18:55 18:55 19:29 WBC 8.6 RBC 3.53 L Hgb 11.2 L Hct 35.5 L MCV 100.6 H MCH 31.7 MCHC 31.5 L RDW 15.1 H RDW Differential 54.5 H Plt Count 161 MPV 11.8 Immature Gran % (Auto) 0.300 Neut % (Auto) 67.4 Lymph % (Auto) 17.7 L [place] % (Auto) 11.4 H Eos % (Auto) 3.0 Baso % (Auto) 0.2 Absolute Neuts (auto) 5.8 Absolute Lymphs (auto) 1.52 Total Counted Not Reportable Sodium 140 Potassium 4.1 Chloride 108 H Carbon Dioxide 25.0 Anion Gap 7 BUN 37 H Creatinine 1.79 H Estim Creat Clear Calc 21.33 Est GFR (MDRD) Af Amer 35 L Est GFR (MDRD) Non-Af 29 L BUN/Creatinine Ratio 20.7 H Glucose 128 H Calcium 9.4 Troponin I 0.055 H Urine Color Yellow Urine Clarity Sl. Cloudy Urine pH 6.5 Ur Specific [place] 1.010 Urine Protein 100 H Urine Glucose (UA) Normal Urine Ketones Negative Urine Occult Blood 10 H Urine Nitrite Positive H Urine Bilirubin Negative Urine Urobilinogen Normal Ur Leukocyte Esterase 100 H Urine RBC 0 SEEN Urine WBC 5-10 SEEN Ur Squamous Epith Cells 0-5 SEEN Urine Bacteria 2+ Urine Mucus 0 SEEN Assessment/Plan All Active Problems (Last Reviewed 06/07/18 @ 04:05 by Jose A Raines MD) Elevated troponin (Acute) Hypertensive emergency (Acute) Encounter for long-term current use of high risk medication (Acute) Abnormal electrocardiogram (Acute) Fracture of femoral neck, left (Acute) Pyelonephritis, acute (Acute) ARF (acute renal failure) (Acute) The patient is a 77 year old F with a significant history of arthritis; Sjogren; and chronic anemia who follows up with 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 Hypertensive emergency Patient with shortness of breath; funny feeling at the chest; headache and systolic blood pressure of more than 180. Received labetalol IV at emergency department. We will continue patient on labetalol as needed. Patient is on home metoprolol 50 mg p.o. twice daily; Hydrochlorothiazide 25 mg p.o. daily; and Imdur 30 mg daily. We will continue Imdur 30 mg daily. Will change hydrochlorothiazide 25 mg p.o. daily to chlorthalidone 50 mg p.o. daily. Potassium supplementation continued. Consider trending potassium if chlorthalidone continued. We will escalate her beta-elena from metoprolol 50 mg p.o. twice daily to metoprolol 75 mg p.o. twice daily Trend blood pressures and adjust blood pressure medication as necessary. Tylenol as needed for headache. Elevated troponin Troponin: 0.068>0.072>0.055 Different diagnosis includes hypertensive emergency; non-ST elevation AR; Type II AR or other Patient is on Ranolazine for chronic chest pain Will seek cardiology input. Probable UTI With her abnormal urinalysis although she does not have urinary symptoms because of the itchiness in her vaginal area will start patient on Rocephin. Probable candidiasis Fluconazole ordered. Chronic anemia Patient follows up with Dr. Azul and has a port for frequent blood draws. Continue outpatient follow-up. DVT prophylaxis Continue heparin Code Visit OBSV E&M: 15946 Initial observation care L3
[2018-06-06] MEDS: Aspirin 81 MG TAB.CHEW 324 MG PO (21:11)
[2018-06-06] MEDS: 0.9% NaCl VAD Flush 10 ML IV ×2 (22:00→23:55)
[2018-06-06] MEDS: FLUCONAZOLE 150 MG TABLET PO (23:52)
[2018-06-06] MEDS: Metoprolol Tartrate 50 MG Tablet 75 MG PO (23:52)
[2018-06-07] VITALS (16 sets, daily range): BP systolic 133–159; BP diastolic 52–81; PULSE 56–78; RESP 16–17; TEMP 36.4–36.8; O2SAT 96–100
[2018-06-07] MEDS: 0.9% NaCl VAD Flush 10 ML IV ×3 (01:00→09:26)
[2018-06-07] MEDS: Metoprolol Tartrate 50 MG Tablet 75 MG PO (09:25)
[2018-06-07] MEDS: Isosorbide Mononitrate 30 MG Tablet PO (09:25)
[2018-06-07] MEDS: Ranolazine 500 MG Tablet 1000 MG PO (09:25)
--- NOTE | 2018-06-07 09:26 | CASEMGMT ---
According to [employer] website, the following are in-network tertiary facilities: [facility], [facility], , [facility]. Naya Fischer RNCM
[2018-06-07] MEDS: Acetaminophen 325 MG Tablet 650 MG PO (11:07)
--- NOTE | 2018-06-07 12:54 | CON.PCM_ITS ---
Problem List (1) Elevated troponin Status: Acute (2) Hypertensive emergency Status: Acute (3) Atherosclerotic heart disease of [place] coronary artery without angina pectoris Status: Chronic Qualifiers: [place] vs. transplanted heart: [place] heart Qualified Code(s): I25.10 - Atherosclerotic heart disease of [place] coronary artery without angina pectoris (4) Hx of right coronary artery stent placement Status: Chronic Comment: PTCA & NIGHAT stent to ramus intermidius & NIGHAT to RCA, 05/21/09 @ [facility]; (5) Hyperlipemia Status: Chronic Qualifiers: Hyperlipidemia type: pure hypercholesterolemia Qualified Code(s): E78.00 - Pure hypercholesterolemia, unspecified Reason for Consult Date of Consultation: 06/07/18 History of Present Illness: The patient is a 77 year old White female with a past medical history of underlying hyperlipidemia, hypertension, CAD, status post PCI-RCA, who presented for evaluation of her hypertensive urgency/emergency and was subsequently noted to have abnormal troponin I levels. The patient states she had been doing well until recently. She noted recently she was experiencing chest discomfort as well as an element of dyspnea. She did use nitroglycerin sublingual x1 and stated she felt better. She did not have associated nausea, emesis, or diaphoresis. There has been no orthopnea or PND or peripheral pitting edema. There has been no near syncope or syncope. She presented to her physician yesterday for routine outpatient followup. She was noted to be markedly hypertensive and subsequently referred to the emergency department for further evaluation. She was placed in the hospital for ongoing evaluation and care. During that time she had cardiac enzymes performed based upon her symptoms and her history. Her troponin I levels were indeterminate. Her ECG demonstrated sinus rhythm with left axis deviation with a bifascicular block and an anteroseptal MO pattern of indeterminate age which could not be excluded. She was subsequently referred for further cardiovascular evaluation including consideration for diagnostic cardiac catheterization. [] Past Medical History Allergies/Adverse Reactions: Allergies adalimumab [From Humira] Allergy (Verified 06/06/18 16:52) Rash ciprofloxacin HCl [From Cipro] Allergy (Verified 06/06/18 16:52) Unknown latex Allergy (Verified 06/06/18 16:52) Rash levofloxacin [From Levaquin] Allergy (Verified 06/06/18 16:52) Unknown lisinopril Allergy (Verified 06/06/18 16:52) Other COUGH Methotrexate Analogues Allergy (Verified 06/06/18 16:52) Hives naproxen Allergy (Verified 06/06/18 16:52) Unknown potassium clavulanate [From Augmentin] Allergy (Verified 06/06/18 16:52) Unknown Sulfa (Sulfonamide Antibiotics) Allergy (Verified 06/06/18 16:52) Unknown amlodipine Adverse Reaction (Severe, Verified 06/06/18 16:52) Unknown haloperidol lactate [From Haldol] Adverse Reaction (Unknown, Verified 06/06/18 16:52) agitation amoxicillin trihydrate [From Augmentin] Adverse Reaction (Verified 06/06/18 16:52) Upset Stomach hydromorphone HCl [From Dilaudid] Adverse Reaction (Verified 06/06/18 16:52) Other HALLUCINATIONS hydroxychloroquine sulfate [From Plaquenil] Adverse Reaction (Verified 06/06/18 16:52) Other VISION ISSUES Home Medications: Ambulatory Orders Medication Instructions Recorded Isosorbide Mononitrate [Imdur] 30 mg PO DAILY 04/01/15 Metoprolol Tartrate [Lopressor 50 mg PO BID 04/01/15 (beta elena)] Multivit-Min/FA/Lycopen/Lutein 1 ea PO DAILY 04/01/15 [Centrum Silver Tablet] Fluticasone 0.05% [Flonase Nasal 2 spray NASAL DAILY PRN 12/30/16 [place]] Potassium Chl Eff (For Liquid) 12.5 meq PO DAILY 12/30/16 [Effer-K 25 Meq Tablet Eff] Hydrochlorothiazide [Hctz] 25 mg PO DAILY 02/16/17 ranolazine ER 1,000 mg 1,000 mg PO DAILY #90 tab 01/11/18 tablet,extended release,12 hr nitroglycerin 0.4 mg sublingual 0.4 mg SUBLINGUAL PRN PRN #25 tab 01/31/18 tablet Cholecalciferol (Vitamin D3) 5,000 unit PO DAILY 06/06/18 [Vitamin D3] Cyanocobalamin (Vitamin B-12) 1,000 mcg PO DAILY 06/06/18 [B-12] Vit C/E/Zn/Coppr/Lutein/Zeaxan 1 each PO BID 06/06/18 [Preservision Areds 2 Softgel] Past Medical History (Chronic Problems): Chronic Problems (Last Reviewed 06/07/18 @ 04:05 by Jose A Raines MD) Anemia (Chronic) Atherosclerotic heart disease of [place] coronary artery without angina pectoris (Chronic) Hx of right coronary artery stent placement (Chronic) PTCA & NIGHAT stent to ramus intermidius & NIGHAT to RCA, 05/21/09 @ [facility]; Congestive heart failure (Chronic) Diastolic dysfunction (Chronic) Left ventricular hypertrophy (Chronic) Chronic kidney disease (CKD), stage III (moderate) (Chronic) CAD (coronary artery disease) (Chronic) Status post remote stenting Rheumatoid arthritis (Chronic) Sjoegren syndrome (Chronic) Hypertension (Chronic) Hyperlipemia (Chronic) GI (gastrointestinal bleed) (Chronic) Surgical History: angioplasty, - - Carpal tunnel syndrome - *Family History Paternal Family History: Family History (Last Reviewed 05/09/18 @ 15:13 by Nahid Hernandez MD) Father No problems noted. History Items: Cancer - breast, - Maternal Family History: Family History (Last Reviewed 05/09/18 @ 15:13 by Nahid Hernandez MD) Father No problems noted. History Items: Cancer - breast, - Smoking Status: Never smoker Alcohol: None Review of Systems - Review of Systems General: Denies: Fever, Night Sweats, Fatigue Cardiovascular: Reports: Chest Discomfort, Shortness of Breath. Denies: Orthopnea, PND, Peripheral Edema, Palpitations, Lightheadedness, Dizziness, Near Syncope, Syncope Respiratory: Denies: Cough, Sputum Production, Hemoptysis Gastrointestinal: Denies: Hematemesis, Hematochezia, Melena Genitourinary: Denies: Dysuria, Hematuria Skin: Denies: Rash Subjectve: This is a pleasant 77-year-old white female who appears to be resting comfortably in no acute distress. Objective: Vital Signs Temp Pulse Resp BP Pulse Ox 98.3 F 65 16 159/62 H 100 06/07/18 09:25 06/07/18 11:25 06/07/18 09:25 06/07/18 11:42 06/07/18 09:25 Oxygen Delivery Method Room Air Weight: 117 lb 8.102 oz Body Mass Index (BMI) 19.5 Intake and Output for Last 24 Hours 06/05/18 06/06/18 06/07/18 23:59 23:59 23:59 Intake Total 240 / 240 120 / 120 Balance 240 / 240 120 / 120 General: Awake, Alert, Oriented x 3, Cooperative, No Acute Distress HEENT: Atraumatic, Normocephalic, PERRL, EOMI, Sclera Non Icteric Oral: Moist Mucosa Neck: Supple, Good ROM, No JVD Lungs: Clear to auscultation Cardiovascular: Normal S1, Normal S2, Positive S4 Vascular: No Carotid Bruits Abdomen: Bowel Sounds Present, Soft, Non Tender Extremities: No edema Neurological: No Focal Motor or Sensory Deficit Psych/Mental Status: Appropriate 06/06/18 18:55: WBC 8.6, RBC 3.53 L, Hgb 11.2 L, Hct 35.5 L, MCV 100.6 H, MCH 31.7, MCHC 31.5 L, RDW 15.1 H, RDW Differential 54.5 H, Plt Count 161, MPV 11.8, Immature Gran % (Auto) 0.300, Neut % (Auto) 67.4, Lymph % (Auto) 17.7 L, [place] % (Auto) 11.4 H, Eos % (Auto) 3.0, Baso % (Auto) 0.2, Absolute Neuts (auto) 5.8, Total Counted Not Reportable 06/06/18 18:55: Sodium 140, Potassium 4.1, Chloride 108 H, Carbon Dioxide 25.0, Anion Gap 7, BUN 37 H, Creatinine 1.79 H, Est GFR (MDRD) Af Amer 35 L, Est GFR (MDRD) Non-Af 29 L, BUN/Creatinine Ratio 20.7 H, Glucose 128 H, Calcium 9.4, Troponin I 0.055 H 06/06/18 19:29: Urine Color Yellow, Urine Clarity Sl. Cloudy, Urine pH 6.5, Ur Specific [place] 1.010, Urine Protein 100 H, Urine Glucose (UA) Normal, Urine Ketones Negative, Urine Occult Blood 10 H, Urine Nitrite Positive H, Urine Bilirubin Negative, Urine Urobilinogen Normal, Ur Leukocyte Esterase 100 H, Urine RBC 0 SEEN, Urine WBC 5-10 SEEN 06/06/18 22:55: Troponin I 0.072 H 06/07/18 01:15: Troponin I 0.068 H Rhythm:Sinus rhythm EKG:As noted above ECHO:09/02/2014: Left ventricle considered normal with an LVEF of 65%; mild concentric LVH; moderate mitral annular calcification; trivial MR; trivial TR; mild diffuse aortic valve thickening; estimated RV systolic pressure of 32 mmHg; decreased systolic compliance 02/22/2018: Pharmacologic stress nuclear imaging study: Compatible with an area of previous apical infarct with no obvious ongoing myocardial ischemia. Stress Test: Cardiac Cath:05-20-2009: Left main coronary artery considered normal; LAD with mild to moderate diffuse disease not greater than 40% stenosis; LCX with mild disease; intermediate ramus with 80 to 90% disease; RCA being a small nondominant vessel with 90% stenosis; left ventricle considered normal with an LVEF of 60 to 65%. Assessment/Plan 1. Abnormal cardiac enzymes The patient does have an indeterminate troponin level. This may be secondary to her hypertension. At the same time she has a history of underlying COPD and has been experiencing chest discomfort or difficulty breathing. She has used nitroglycerin sublingual. This at the present time she will continue to be followed. She has continued medical management. She will be considered for further evaluation with d iagnostic cardiac catheterization. The procedure and risks were discussed with her. She is agreeable to this approach. 2. Hypertensive urgency/emergency Her blood pressure being followed. Her medications will be adjusted in an attempt to bring her blood pressure is under better control. 3. CAD status post PCI The patient does have history of CAD and PCI as previously noted. She will need to continue risk factor modification and medical management. Based upon the ongoing concerns she will undergo further evaluation with diagnostic cardiac catheterization. 4. Hyperlipidemia The patient will continue lipid lowering therapy. Comment: The above was discussed with the patient and Dr. Hernandez. This note was generated using a voice recognition system and there may be incorrect words, spelling or punctuation that were not noted when reviewing the office note prior to saving.
--- NOTE | 2018-06-07 13:23 | PCM.PN.BLA ---
Progress Note Patient underwent cardiac catheterization today which demonstrated the following: Normal left main coronary artery. Left anterior descending artery with mild diffuse disease. Ramus intermedius with mild proximal disease and severe disease involving a subbranch of the diagonal vessel. Left circumflex artery with mild diffuse disease. Left to right collaterals noted from the left anterior descending artery as well as the circumflex artery to the distal right coronary artery. Subtotal occlusion of the proximal right coronary artery within the stent. Diffuse disease noted. Based on the above angiographic findings demonstrating diffuse coronary artery disease and the patient's inability to take long-term aspirin or Plavix the decision is being made to continue aggressive medical therapy. Patient is already fairly collateralized from the left coronary artery system. The concern is the longevity of a stent placed would be minimized. Increase isosorbide to 60 mg a day Add Norvasc 5 mg a day Increase metoprolol to 75 mg twice a day. Continue ranolazine thousand milligrams twice a day. Would recommend discharge patient later today.
--- NOTE | 2018-06-07 13:32 | CL.D_ITS ---
Patient Name: JOSELINE NAVARRETE Study Date: 06/07/2018 Performing: Nahid Hernandez MD Ht: 64.96 inches 165 cm : 1940 Wt: 116.84 lbs 53 kg Age: 77 Gender: female BSA: 1.57 PROCEDURE(S) PERFORMED [id number] CLINICAL PROFILE AND INDICATIONS Indications: Worsening Angina Heart Failure: None Stress/Imaging Stress/Image Study Performed: No CAD Presentations: Unstable angina. CONCLUSIONS Diffuse disease noted involving the diagonal vessel, distal LAD, ramus intermedius, and high-grade in -stent stenosis of the proximal right coronary artery extending throughout the previously placed sten t RECOMMENDATIONS Based on the fact that the patient cannot tolerate long-term aspirin, Plavix, Brilinta due to recurre nt GI bleeds requiring transfusion it was felt that aggressive medical therapy should be pursued rath er than attempting to re-stent the entire right coronary artery DESCRIPTION OF PROCEDURE The patient arrived to the procedure lab. The risks and benefits of the procedure as well as a full d escription of our services here and current unavailability of surgical backup were fully explained to the patient and/or their significant other prior to the catheterization. The Timeout was completed, verifying the correct patient and procedure. The patient's procedural site was prepped and draped in the usual fashion. Local anesthetic was given subcutaneously to right radial region with Lidocaine 2% . Using a modified Seldinger technique, arterial access was obtained via the right radial artery, a 6 Fr sheath was inserted. Left Coronary Artery selective angiography was performed in multiple views u sing a 5 Fr. 4.0 [place] catheter. Right Coronary Artery selective angiography was then performed in mu ltiple views using a 5 Fr. 4.0 [place] catheter.The arterial sheath was pulled and a TR Band was applie d for hemostasis. 14cc of air CORONARY ANGIOGRAPHY DOMINANCE: Right Dominant LEFT HEART ASSESSMENT Left Ventricular Ejection Fraction: by Echo 55 % LEFT MAIN: Angiographically normal LEFT ANTERIOR DECENDING ARTERY: Moderate luminal irregularities up to 50% DIAGONAL 1: Proximal - Moderate luminal irregularities up to 50% CIRCUMFLEX ARTERY: Mild luminal irregularities RAMUS: proxima mild disease in the vessel bifurcates into 2 with a superior division having an 80% di ffuse stenosis RIGHT CORONARY ARTERY: PROX RCA: Instent restenosis 95 % COLLATERAL FLOW: Collateral flow from Left to Right COMPLICATIONS No Complications PROCEDURE MEDICATIONS Versed 1 mg IV Oxygen: 2 L/min via nasal cannula Heparin diluted in 23cc Heparinized saline. Patient given 10cc IA of this solution. 06/07/2018 13:07: 56 Solu-medrol 125 mg IV 06/07/2018 13:04:40 Verapamil 2.5mg, Ntg 100mcgs, 2000 units of Heparin diluted in 23cc Heparinized saline. Patient give n 10cc IA of this solution. 06/07/2018 13:07:56 SUMMARY OF HEMODYNAMIC DATA Time AIR REST ECG 13:05:47 AO 136/56 (86) SA 13:09:49 Signed By Nahid Hernandez MD On 06/07/2018 1:31:46 PM Nahid Hernandez MD
[2018-06-07] MEDS: Chlorthalidone 50 MG Tablet PO (14:15)
--- NOTE | 2018-06-07 17:24 | PCM.DC ---
- Discharge Diagnoses Current Active Problems: Current Active and Chronic Problems (Last Reviewed 06/07/18 @ 04:05 by Jose A Raines MD) Elevated troponin (Acute) Hypertensive emergency (Acute) Anemia (Chronic) Hypertension (Chronic) You will use the following diet at home:: No restrictions Your food should be the consistency of: Regular Your liquids should be the consistency of: Regular/Thin Discharge Activity: Return to Normal Activity Additional Instructions: Use Monostat cream and 1% Hydrocortisone cream, 1/2 and 1/2 to vaginal area twice a day to red areas for 1-2 weeks Allergies/Adverse Reactions: Allergies adalimumab [From Humira] Allergy (Verified 06/06/18 16:52) Rash ciprofloxacin HCl [From Cipro] Allergy (Verified 06/06/18 16:52) Unknown latex Allergy (Verified 06/06/18 16:52) Rash levofloxacin [From Levaquin] Allergy (Verified 06/06/18 16:52) Unknown lisinopril Allergy (Verified 06/06/18 16:52) Other COUGH Methotrexate Analogues Allergy (Verified 06/06/18 16:52) Hives naproxen Allergy (Verified 06/06/18 16:52) Unknown potassium clavulanate [From Augmentin] Allergy (Verified 06/06/18 16:52) Unknown Sulfa (Sulfonamide Antibiotics) Allergy (Verified 06/06/18 16:52) Unknown amlodipine Adverse Reaction (Severe, Verified 06/06/18 16:52) Unknown haloperidol lactate [From Haldol] Adverse Reaction (Unknown, Verified 06/06/18 16:52) agitation amoxicillin trihydrate [From Augmentin] Adverse Reaction (Verified 06/06/18 16:52) Upset Stomach hydromorphone HCl [From Dilaudid] Adverse Reaction (Verified 06/06/18 16:52) Other HALLUCINATIONS hydroxychloroquine sulfate [From Plaquenil] Adverse Reaction (Verified 06/06/18 16:52) Other VISION ISSUES Medications to take at Discharge Metoprolol Tartrate [Lopressor (beta elena)] 50 mg PO BID 04/01/15 Multivit-Min/FA/Lycopen/Lutein [Centrum Silver Tablet] 1 ea PO DAILY 04/01/15 Fluticasone 0.05% [Flonase Nasal [place]] 2 spray NASAL DAILY PRN 12/30/16 Potassium Chl Eff (For Liquid) [Effer-K 25 Meq Tablet Eff] 12.5 meq PO DAILY 12/30/16 Hydrochlorothiazide [Hctz] 25 mg PO DAILY 02/16/17 nitroglycerin 0.4 mg sublingual tablet 0.4 mg SUBLINGUAL PRN PRN #25 tab 01/31/18 Cholecalciferol (Vitamin D3) [Vitamin D3] 5,000 unit PO DAILY 06/06/18 Cyanocobalamin (Vitamin B-12) [B-12] 1,000 mcg PO DAILY 06/06/18 Vit C/E/Zn/Coppr/Lutein/Zeaxan [Preservision Areds 2 Softgel] 1 each PO BID 06/06/18 Acetaminophen [Tylenol Tablet] 650 mg PO Q6H PRN PRN tablet 06/07/18 Amlodipine [Norvasc] 5 mg PO DAILY #30 tablet 06/07/18 Isosorbide Mononitrate [Imdur] 60 mg PO DAILY #30 tablet 06/07/18 Metoprolol Tartrate [Lopressor (beta elena)] 75 mg PO BID #90 tablet 06/07/18 Ranolazine [Ranexa] 1,000 mg PO DAILY #60 tab 06/07/18 The following prescriptions were given: Amlodipine [Norvasc] 5 mg PO DAILY #30 tablet Isosorbide Mononitrate [Imdur] 60 mg PO DAILY #30 tablet Ranolazine [Ranexa] 1,000 mg PO DAILY #60 tab Metoprolol Tartrate [Lopressor (beta elena)] 75 mg PO BID #90 tablet Primary Care Physician: Demarco Lopez MD [Primary Care Provider] - Please follow up with your Primary Care Physician in: in 2 weeks Test Results: Test results from this visit will be discussed in further detail at your follow-up appointment, if applicable. Please Follow Up With: Nahid Hernandez MD When: as directed
--- NOTE | 2018-06-09 20:35 | PCM.DC.SUM ---
Discharge Date and Diagnosis Date of Admission: 06/06/18 Date of Discharge: 06/07/18 - Primary Discharge Diagnosis #1 hypertensive urgency-no evidence of hypertensive emergency #2 elevated troponins not due to non-STEMI or STEMI #3 coronary artery disease-diffuse #4 hyperlipidemia #5 chronic kidney disease stage IV #6 bacteriuria without evidence of cystitis #7 chronic anemia secondary to undiagnosed chronic GI blood loss - Secondary Discharge Diagnosis Chronic Problems (Last Reviewed 06/07/18 @ 04:05 by Jose A Raines MD) Anemia (Chronic) Atherosclerotic heart disease of habematolel coronary artery without angina pectoris (Chronic) Hx of right coronary artery stent placement (Chronic) PTCA & NIGHAT stent to ramus intermidius & NIGHAT to RCA, 05/21/09 @ [facility]; Congestive heart failure (Chronic) Diastolic dysfunction (Chronic) Left ventricular hypertrophy (Chronic) Chronic kidney disease (CKD), stage III (moderate) (Chronic) CAD (coronary artery disease) (Chronic) Status post remote stenting Rheumatoid arthritis (Chronic) Sjoegren syndrome (Chronic) Hypertension (Chronic) Hyperlipemia (Chronic) GI (gastrointestinal bleed) (Chronic) Hospital Course and Treatment Operations: None Procedures: Cardiac catheterization Summary of Care Provided: The patient is a 77 year old F was seen in the emergency room at [facility] with an elevated blood pressure. Patient saw her primary care physician and her blood pressure at his office was 196/91, patient admitted to some mild chest pain and shortness of breath. Evaluation in the emergency room included an EKG which showed a normal sinus rhythm at 69 with no evidence of acute ischemia, CBC showed mild anemia with hemoglobin of 11.2, troponin was slightly elevated at 0.055, urinalysis showed positive leukocyte esterase 100+ nitrite and +2 bacteria. Patient had no symptoms of urinary tract infection. Patient was given a dose of IV labetalol and her blood pressure improved to 150 systolic but after a while in the emergency room, her systolic blood pressure went up to 200. Patient was placed on nitroglycerin paste and was given an aspirin, patient was placed and observation status on PCU with a diagnosis of elevated troponin and hypertensive emergency. This examiner however did not feel that the patient had hypertensive emergency but at hypertensive urgency. Patient was seen in consultation by cardiology, her blood pressure is controlled with medication, and patient underwent a cardiac catheterization which showed diffuse coronary artery disease. Due to the patient's history of chronic gastrointestinal bleeding and her inability to take any platelet inhibiting drugs or full anticoagulation, cardiology opted to treat the patient medically and her medicines were adjusted prior to discharge. On 06/07/18, patient was seen and examined: On examination she appeared in good health and spirits. Vital signs as documented. Skin warm and dry and without overt rashes. Neck without JVD. Lungs clear. Heart exam notable for regular rhythm, normal sounds and absence of murmurs, rubs or gallops. Abdomen unremarkable and without evidence of organomegaly, masses, or abdominal aortic enlargement. Extremities nonedematous. Neuro: Cranial nerves II through XII are grossly intact, no focal motor deficits were noted, sensation to light touch and pinprick is intact. Psych: Patient is alert and oriented x3, she does not appear anxious or depressed On 06/07/18, patient was seen and examined and she was discharged home in stable condition - Physical Exam Vital Signs Temp Pulse Resp BP Pulse Ox 97.6 F L 60 16 140/62 H 96 06/07/18 15:00 06/07/18 16:00 06/07/18 16:00 06/07/18 16:00 06/07/18 16:00 Oxygen Delivery Method Room Air Weight: 53.3 kg Body Mass Index (BMI) 19.5 Intake and Output for Last 24 Hours 06/07/18 06/08/18 06/09/18 23:59 23:59 23:59 Intake Total 120 / 120 Balance 120 / 120 Discharge Activity: Return to Normal Activity Home Medications: Medications to take at Discharge Metoprolol Tartrate [Lopressor (beta elena)] 50 mg PO BID 04/01/15 Multivit-Min/FA/Lycopen/Lutein [Centrum Silver Tablet] 1 ea PO DAILY 04/01/15 Fluticasone 0.05% [Flonase Nasal [place]] 2 spray NASAL DAILY PRN 12/30/16 Potassium Chl Eff (For Liquid) [Effer-K 25 Meq Tablet Eff] 12.5 meq PO DAILY 12/30/16 Hydrochlorothiazide [Hctz] 25 mg PO DAILY 02/16/17 nitroglycerin 0.4 mg sublingual tablet 0.4 mg SUBLINGUAL PRN PRN #25 tab 01/31/18 Cholecalciferol (Vitamin D3) [Vitamin D3] 5,000 unit PO DAILY 06/06/18 Cyanocobalamin (Vitamin B-12) [B-12] 1,000 mcg PO DAILY 06/06/18 Vit C/E/Zn/Coppr/Lutein/Zeaxan [Preservision Areds 2 Softgel] 1 each PO BID 06/06/18 Acetaminophen [Tylenol Tablet] 650 mg PO Q6H PRN PRN tablet 06/07/18 Amlodipine [Norvasc] 5 mg PO DAILY #30 tablet 06/07/18 Isosorbide Mononitrate [Imdur] 60 mg PO DAILY #30 tablet 06/07/18 Metoprolol Tartrate [Lopressor (beta elena)] 75 mg PO BID #90 tablet 06/07/18 Ranolazine [Ranexa] 1,000 mg PO DAILY #60 tab 06/07/18 Following Prescrptions Were Given to Patient: Amlodipine [Norvasc] 5 mg PO DAILY #30 tablet Isosorbide Mononitrate [Imdur] 60 mg PO DAILY #30 tablet Ranolazine [Ranexa] 1,000 mg PO DAILY #60 tab Metoprolol Tartrate [Lopressor (beta elena)] 75 mg PO BID #90 tablet Primary Care Physician: Demarco Lopez MD [Primary Care Provider] - Please follow up with your Primary Care Physician in: in 2 weeks Please Follow Up With: Nahid Hernandez MD When: as directed Please Follow Up With: Demarco Lopez MD Disposition: Home Minutes spent on discharge:: 32 Patient Condition:: Stable Medical Necessity - Tobacco Use Smoking Status: Never smoker Meaningful Use Info Meaningful Use Diagnoses (Choose all that apply): None applicable Code Visit OBSV E&M: 37527 Observation care discharge
== END 2018-06-07 13:22 | disposition home or self-care (01) ==
LOC: ED 20:41 → PCU 21:19
PROVIDERS: Admitting Provider Hospitalist; Emergency Provider Emergency Medicine; Family Provider Family Medicine; PCP Family Medicine; Visit Provider Internal Medicine
DX: I16.0 Hypertensive urgency (principal); I25.10 Atherosclerotic heart disease of native coronary artery without angina pectoris; E78.5 Hyperlipidemia, unspecified; D50.0 Iron deficiency anemia secondary to blood loss (chronic); R06.02 Shortness of breath; I45.2 Bifascicular block; I13.0 Hypertensive heart and chronic kidney disease with heart failure and stage 1 through stage 4 chronic kidney disease, or unspecified chronic kidney disease; I50.9 Heart failure, unspecified; M19.90 Unspecified osteoarthritis, unspecified site; N18.4 Chronic kidney disease, stage 4 (severe); Z95.5 Presence of coronary angioplasty implant and graft; M06.9 Rheumatoid arthritis, unspecified; Z79.899 Other long term (current) drug therapy
CPT/HCPCS: 36591; 71046; 80048; 81001; 84484; 85025; 93005; 93454; 96374; 96376; 99152; 99218; 99282; J7030; A4216; C1769; C1894; G0378; Q9967

== ENCOUNTER → 2018-09-17 | Outpatient (CLI) | payer MEDICARE, SELFPAY ==
[2018-09-13 13:09] VITALS: BMI 21.0
[2018-09-17 12:46] LABS: Hematocrit 35.2 % (37-47); Hemoglobin 10.8 g/dl (12.0-15.0); Mean Corp Hgb Conc 30.7 g/gl (32-36); Mean Corpuscular Hgb 30.6 pg (27.0-32.0); Mean Corpuscular Volume 99.7 fL (81-99); Mean Platelet Vol. 11.3 fl (6.2-12.0); Platelet Count 208 K/mm3 (150-450); RBC Distribution Width CV 16.7 % (11.6-14.6); RBC Distribution Width SD 59.3 fl (35.1-43.9); Red Blood Count 3.53 M/mm3 (4.2-5.4); White Blood Count 8.6 K/mm3 (4.4-11.0)
[2018-09-17 12:47] LABS: Scan Indicated on CBC? Y/N NO
[2018-09-17 13:16] LABS: AST(SGOT) 21 U/L (15-37); Alanine Aminotransfer ALT/SGPT 23 U/L (13-56); Albumin, Serum 3.3 g/dL (3.2-5.0); Alkaline Phosphatase 94 U/L (45-117); Anion Gap 7 (5-15); BUN 32 mg/dL (7-18); Bilirubin, Direct 0.16 mg/dL (0.00-0.30); Calcium,Total 9.2 mg/dL (8.5-10.1); Chloride 107 mmol/L (98-107); Cholesterol 132 mg/dL (200); Creatinine, Serum 1.88 mg/dL (0.55-1.02); EST Glomerular Filtration Rate 27 mL/min (>60); Est Glom Filt Rate - Afr Amer 33 mL/min (>60); Globulin 4.3 g/dL (2.2-4.2); Glucose 101 mg/dL (74-106); High Density Lipoprotein 45 mg/dL; Phosphorus 3.5 mg/dL (2.5-4.9); Potassium 4.6 mmol/L (3.5-5.1); Protein, Total 7.6 g/dL (6.4-8.2); Sodium Level 140 mmol/L (136-145); Triglycerides 104 mg/dL; Very Low Density Lipoprotein 21 mg/dL (5-40)
[2018-09-17 13:20] LABS: PTHIN 60.3 pg/mL (18.4-80.1)
[2018-09-17 13:54] LABS: Protein, Urine (Random) 59.8 mg/dL (<11.9); Protein:Creat Ratio 798 mg/g CRE (0-200)
== END | disposition home or self-care (01) ==
LOC: LAB 11:49
PROVIDERS: Nurse Practitioner Family; Family Provider Family Medicine; PCP Family Medicine; Referring Provider Internal Medicine Nephrology; Visit Provider Internal Medicine Nephrology
DX: N18.4 Chronic kidney disease, stage 4 (severe) (principal); D63.1 Anemia in chronic kidney disease; E55.9 Vitamin D deficiency, unspecified; R07.9 Chest pain, unspecified; E78.5 Hyperlipidemia, unspecified; I25.10 Atherosclerotic heart disease of native coronary artery without angina pectoris
CPT/HCPCS: 80048; 80061; 80076; 82306; 82570; 83970; 84100; 84156; 85027

== ENCOUNTER 2019-02-13 08:37 | Emergency (ER) | payer MEDICARE, SELFPAY ==
[2018-09-13 13:09] VITALS: BMI 21.0
[2019-02-13 08:38] VITALS: BP 156/104; PULSE 69; RESP 18; TEMP 36.8; O2SAT 98; BMI 19.3
--- NOTE | 2019-02-13 08:52 | RAD_ITS ---
STUDY: X-RAY CHEST REASON FOR EXAM: Female, 78 years old. Chest pain. TECHNIQUE: Single AP portable view of the chest. COMPARISON: Comparison is made with prior examination dated June 06, 2018. FINDINGS: A left-sided portacatheter is in situ. The tip is in the right atrium. EKG electrodes are seen. Stable elevation of the right hemidiaphragm. Stable increased markings at the lung bases slightly worse on the left side with blunting of the left ankle. This most likely represents scarring. Normal size heart. Normal mediastinum and yeyo. Normal visualized pulmonary arteries. Normal visualized aortic arch and descending thoracic aorta. Normal visualized thoracic spine. There is degenerative osteoarthritis of the bilateral shoulders. There is no demonstrated abnormality of the visualized soft tissue structures of the upper abdomen. RAD/Chest 1 View (Portable) IMPRESSION: Stable examination with findings suggestive of her chronic changes at the lung bases slightly worse on the left side. Electronically Signed: Zaheer Silverio, at 9:15 EDT , Service support ,
--- NOTE | 2019-02-13 08:52 | EKG12_ITS ---
Test Reason : CP Blood Pressure : / mmHG Vent. Rate : 069 BPM Atrial Rate : 069 BPM P-R Int : 132 ms QRS Dur : 142 ms QT Int : 454 ms P-R-T Axes : 052 -61 060 degrees QTc Int : 486 ms Normal sinus rhythm Right bundle branch block Left anterior fascicular block Bifascicular block Moderate voltage criteria for LVH, may be normal variant Abnormal ECG Confirmed by ROCÍO ROME, CRISTAL ([id number]), image editor BRI MCKEON ([id number]) on 02/17/2019 9:28:17 AM Referred By: HEVER Confirmed By:CRISTAL ALFORD MD
[2019-02-13] MEDS: Aspirin 81 MG TAB.CHEW 324 MG PO (09:25)
[2019-02-13] MEDS: 0.9% Normal Saline 1,000 ML 150 ML IV (09:25)
[2019-02-13 09:27] VITALS: BP 152/62; PULSE 66
[2019-02-13 09:27] LABS: Absolute Lymphocyte Count 1.29 X10^3/uL (0.83-4.51); Basophil# 0.04 X10^3/uL; Basophil% 0.5 % (0-1); Eosinophil# 0.08 X10^3/uL; Eosinophils% 0.9 % (0-5); Hematocrit 29.5 % (37-47); Hemoglobin 9.3 g/dL (12.0-15.0); Lymphocyte # 1.29 X10^3/ul (4.0); Lymphocyte % 14.8 % (19-41); Mean Corp Hgb Conc 31.5 g/dL (32-36); Mean Corpuscular Hgb 29.9 pg (27.0-32.0); Mean Corpuscular Volume 94.9 fL (81-99); Mean Platelet Vol. 12.5 fl (6.2-12.0); Monocyte# 1.23 X10^3/uL; Monocyte% 14.1 % (0-10); NRBC Flagged by Analyzer 0 % (0-5); Neutrophil # 6.01 X10^3/uL (2.7-7.7); Neutrophil % 69.1 % (47-70); Platelet Count 160 K/mm3 (150-450); RBC Distribution Width CV 16.6 % (11.6-14.6); Red Blood Count 3.11 M/mm3 (4.2-5.4); White Blood Count 8.7 K/mm3 (4.4-11.0)
[2019-02-13] MEDS: Nitroglycerin SL (ED/IMG/CATH) 0.4 MG TABLET SUBLINGUAL ×3 (09:27→09:37)
[2019-02-13 09:32] VITALS: BP 133/65; PULSE 65
[2019-02-13 09:37] VITALS: BP 137/71; PULSE 66
[2019-02-13 09:40] LABS: D-Dimer Quantitative (DVT/PE) 1.13 FEU/ug/m (0.27-0.49)
[2019-02-13 09:45] LABS: Anion Gap 10 (5-15); BUN 41 mg/dL (7-18); BUN/Creat Ratio 19.7 RATIO (10-20); Calcium,Total 9.1 mg/dL (8.5-10.1); Chloride 108 mmol/L (98-107); Creatinine, Serum 2.08 mg/dL (0.55-1.02); EST Glomerular Filtration Rate 24 mL/min (>60); Est Glom Filt Rate - Afr Amer 30 mL/min (>60); Estimated Creatinine Clearance 17.69 ml/min; Glucose 121 mg/dL (74-106); Potassium 3.9 mmol/L (3.5-5.1); Sodium Level 142 mmol/L (136-145)
--- NOTE | 2019-02-13 09:55 | ED.VISSUMM ---
- ER Visit Summary Date of Service: 02/13/19 Chief Complaint: [Chest pain] History of Present Illness: The patient is a 78 F [presents to the emergency department with complaint of chest pain that started last evening. Patient states the pain is been continuous. Patient describes a dull discomfort in her chest that at times will radiate into her neck. Patient also complains of pain across her back. At times the pain is worse with deep breath. Patient states that her grandson gave her some CBD oil drops last night and afterwards the pain started. Patient not sure if that is related. Patient does have history of coronary artery disease as well as hypertension, cholesterol, and CHF history. He denies recent travel or surgery. She has had prior DVT. Does have a cardiac stent.] Physical Examination: HEENT-PERRLA, EOMI. Cranial nerves II through XII grossly intact. TMs clear. Mucous membranes moist. No adenopathy. Cardiovascular-regular rate and rhythm without murmur or ectopy Lungs-clear to auscultation, chest wall stable without crepitus or subcu emphysema Abdomen-normoactive bowel sounds, soft, nontender, no rebound or rigidity, no peritoneal signs. Extremities-intact ?4, normal range of motion, normal pulses, atraumatic] Test Results: [EKG obtained on arrival shows sinus rhythm with a ventricular rate of 69 bpm with a right bundle branch block and left anterior fascicular block. Patient had LVH. CBC with differential showed a normal white blood cell count and a hemoglobin of 9.3. Chemistries unremarkable. BUN was 41 and creatinine 2.08. Troponin was 0.044. D-dimer was 1.13. Chest x-ray showed chronic changes of the lung bases.] Emergency Department Course and Treatment: [Patient had received aspirin. Patient given sublingual nitroglycerin which seemed to help her discomfort and at rest she is not having much discomfort unless she breathes. Because of her elevated d-dimer initially wanted to obtain a CTA to rule out PE however because of her abnormal kidney function we are unable to proceed with this.] Treatment Plan: [Admit for further work-up and evaluation of her chest pain. Will discuss anticoagulation with patient until further diagnostics can be performed such as possibly VQ scan.] Disposition: [Admit] Impression: [Chest pain-etiology uncertain] This note was generated with [employer] software. It may contain incorrect words, spelling, and punctuation that were not noted in review of the chart prior to signing ED Disposition - Plan for ED Patient: Referrals: Demarco Lopez MD [Primary Care Provider] -
[2019-02-13 10:14] VITALS: BP 152/65; PULSE 68; RESP 15; O2SAT 99
--- NOTE | 2019-02-13 10:18 | CT_ITS ---
STUDY: CTA CHEST REASON FOR EXAM: Female, 78 years old. Chest pain. Prior stents. Comparison is made with prior examination dated September 01, 2014 and prior chest radiograph done earlier in the day. RADIATION DOSAGE (If Supplied By Facility): CTDIvol = ( 4.53 ) mGy, DLP = ( 197 ) mGycm TECHNIQUE: The examination was performed with the intravenous administration of IV Isovue 370 75. Post-processing of the angiographic images was performed, with multiplanar reformation and 3D reconstruction. Individualized dose optimization techniques were used for this CT. COMPARISON: None. FINDINGS: A left-sided portacatheter is seen. Normal enhancement of the main pulmonary artery and right and left pulmonary arteries. Normal enhancement of the bilateral peripheral pulmonary arteries. There is no demonstrated pulmonary embolism. Normal thoracic aorta and visualized great vessels. There is no demonstrated aortic dissection. There are calcifications of the coronary arteries. There are visualized mediastinal lymph nodes, which are within normal size limits, and with normal morphology. Normal hilar regions. Normal visualized trachea and bronchi. The lungs are well expanded. Calcified granulomas in the upper lobes more prominent on the left side. Pleural thickening at the lung bases slightly more prominent on the left side with increased markings suggestive of bibasilar scarring. Normal pleura. Normal chest wall structures. There are degenerative changes of thoracic spine. Normal visualized upper abdomen. CT/CTA Chest W/WO Contrast IMPRESSION: No evidence of pulmonary embolism. Calcified granulomas in the upper lobes worse on the right side with scarring at the lung bases. Electronically Signed: Zaheer Silverio, at 11:32 EDT , Service support ,
--- NOTE | 2019-02-13 12:06 | ED.DEP ---
ED Disposition - Plan for ED Patient: Instructions: CHEST PAIN, Uncertain Cause Referrals: Demarco Lopez MD [Primary Care Provider] - Nahid Hernandez MD [STAFF PHYSICIAN] - 5-7 Days Additional Instructions: increase Norvasc to 5mg daily Increase Imdur to 60mg twice per day
--- NOTE | 2019-02-13 12:11 | ED.VISSUMM ---
- ER Visit Summary Date of Service: 02/13/19 Chief Complaint: [Addendum to my initial dictation] History of Present Illness: The patient is a 78 F [patient was seen by hospitalist in the department. Hospitalist wanted a CTA of the chest which was performed after discussing with radiology and was negative for PE or dissection. Hospitalist discussed case with ems instructor who recommended outpatient follow-up and medication adjustment by increasing her Norvasc to 5 mg daily and Imdur to 60 mg twice a day.] Physical Examination: [] Test Results: [] Emergency Department Course and Treatment: [] Treatment Plan: [] Disposition: [Discharged home in stable condition] Impression: [Chest pain-etiology uncertain] This note was generated with [employer] dictation software. It may contain incorrect words, spelling, and punctuation that were not noted in review of the chart prior to signing ED Disposition - Plan for ED Patient: Instructions: CHEST PAIN, Uncertain Cause Referrals: Demarco Lopez MD [Primary Care Provider] - Nahid Hernandez MD [STAFF PHYSICIAN] - 5-7 Days Additional Instructions: increase Norvasc to 5mg daily Increase Imdur to 60mg twice per day
[2019-02-13 12:19] VITALS: BP 133/63; PULSE 62; RESP 17
== END 2019-02-13 12:41 | disposition home or self-care (01) ==
LOC: ED 09:04
PROVIDERS: Emergency Provider Emergency Medicine; Family Provider Family Medicine; PCP Family Medicine
DX: R07.9 Chest pain, unspecified (principal); R06.00 Dyspnea, unspecified; R79.89 Other specified abnormal findings of blood chemistry; I44.4 Left anterior fascicular block; I45.10 Unspecified right bundle-branch block; I25.10 Atherosclerotic heart disease of native coronary artery without angina pectoris; I11.0 Hypertensive heart disease with heart failure; I50.9 Heart failure, unspecified; E78.00 Pure hypercholesterolemia, unspecified; Z86.718 Personal history of other venous thrombosis and embolism; Z95.5 Presence of coronary angioplasty implant and graft; Z79.899 Other long term (current) drug therapy
CPT/HCPCS: 36591; 71045; 71275; 80048; 84484; 85025; 85379; 93005; 96360; 96361; 99284; J7030; Q9967; A4216

== ENCOUNTER 2019-03-01 10:08 | Outpatient (CLI) | payer MEDICARE, SELFPAY ==
[2019-02-19 13:08] VITALS: BMI 19.0
[2019-03-01] MEDS: Acetaminophen 325 MG Tablet 650 MG PO (11:03)
[2019-03-01 11:13] VITALS: BP 124/63; PULSE 60; RESP 18; TEMP 36.9; O2SAT 98
[2019-03-01 11:28] VITALS: BP 120/58; PULSE 59; RESP 18; TEMP 36.8; O2SAT 98
[2019-03-01] MEDS: 0.9% Saline Lock 10 ML Syringe IV ×2 (11:33→14:56)
[2019-03-01 12:28] VITALS: BP 127/62; PULSE 58; RESP 16; TEMP 36.8; O2SAT 96
[2019-03-01 13:28] VITALS: BP 134/63; PULSE 62; RESP 18; TEMP 36.9; O2SAT 95
== END 2019-03-01 15:00 | disposition home or self-care (01) ==
LOC: MEDOUTP 10:10 → MS3 10:11
PROVIDERS: Family Provider Family Medicine; PCP Family Medicine; Referring Provider Internal Medicine Hematology & Oncology; Visit Provider Internal Medicine Hematology & Oncology
DX: Z51.89 Encounter for other specified aftercare (principal); N18.4 Chronic kidney disease, stage 4 (severe); D63.1 Anemia in chronic kidney disease
CPT/HCPCS: 36430; 86644; 86850; 86900; 86901; 86920; 86922; J7040; P9016; A4216

== ENCOUNTER 2019-03-17 17:14 | Emergency (ER) | payer MEDICARE, SELFPAY ==
[2019-02-19 13:08] VITALS: BMI 19.0
[2019-03-17 17:15] VITALS: BP 139/77; PULSE 71; RESP 20; TEMP 36.4; O2SAT 95; BMI 19.7
--- NOTE | 2019-03-17 17:58 | CT_ITS ---
STUDY: CT BRAIN WITHOUT CONTRAST REASON FOR EXAM: Female, 78 years old. Fall RADIATION DOSAGE (If Supplied By Facility): CTDIvol = ( 60.81 ) mGy, DLP = ( 1044.28 ) mGycm TECHNIQUE: Transaxial CT imaging of the brain was performed without administration of intravenous contrast material. Individualized dose optimization techniques were used for this CT. COMPARISON: No relevant priors. FINDINGS: Posterior scalp focal hematoma. Normal calvarium. Normal size ventricles and extra-axial spaces for the patient's age. Bilateral white matter microangiopathic ischemic changes of the cerebral hemispheres. Old lacunar infarcts at the basal ganglia. Normal thalami. Normal brainstem. Normal cerebellum. There is no intracranial hemorrhage. There are no findings of an acute ischemic infarction. Normal visualized paranasal sinuses. CT/Brain/Head without Contrast IMPRESSION: Age-related changes of the brain. Posterior scalp hematoma. Electronically Signed: Jose Overton DO at 18:49 EST Tel [phone], Service support ,
--- NOTE | 2019-03-17 17:59 | ED.DCSUM_ITS ---
History of Present Illness Chief Complaint: Head Injury Informant: Patient, PCP Onset: - March 14 Mechanism/Context: Blunt Injury, Fall Quality of Pain: Dull Location: Left side Current Severity: Mild Maximum Severity: Mild Worsened by: Nothing Relieved by: Nothing Associated Symptoms: Amnesia. Negative for: Parasthesias, Weakness, Loss of function, Inability to ambulate Narrative: Since an elderly woman on anticoagulant who was sent to the emergency room by her oncologist because of head trauma that occurred March 14. She states she was going to the bathroom. She lost her balance. She is not certain what she hit. She does not remember specifics and details. She states she had 24 hours of blurred vision. She is had problems with her balance. She does report nausea. She denies double vision or loss of vision. She denies ringing or ears or decreased hearing. She states she has chronic neck pain and localizes over the right and left paracervical region not midline. She denies paresthesia, anesthesia or motor weakness presently the time of the fall. She denies chest pain or shortness of breath. She denies black or maroon stool. She denies vomiting. She denies urologic symptoms. She states her legs are chronically swollen. She received iron today because of anemia requiring recurrent transfusions. Prior similar symptoms: No Recent Illness/Hospitalization: No - Past Medical History (1) Iron deficiency anemia Status: Acute (2) Atherosclerotic heart disease of [place] coronary artery without angina pectoris Status: Chronic (3) Chronic diastolic (congestive) heart failure Status: Chronic (4) Essential (primary) hypertension Status: Chronic (5) Hyperlipemia Status: Chronic (6) History of coronary artery stent placement Status: Resolved Comment: PCI-NIGHAT-RCA w/ 2.5 x 28 mm Promus Stent x 2, NIGHAT- Ramus w/ 2.25 x 20 Taxus Stent 05/21/2009 Past Medical History - Allergies and Home Meds Allergies/Adverse Reactions: Allergies adalimumab [From Humira] Allergy (Verified 03/17/19 17:18) Rash ciprofloxacin HCl [From Cipro] Allergy (Verified 03/17/19 17:18) Unknown latex Allergy (Verified 03/17/19 17:18) Rash levofloxacin [From Levaquin] Allergy (Verified 03/17/19 17:18) Unknown lisinopril Allergy (Verified 03/17/19 17:18) Other COUGH Methotrexate Analogues Allergy (Verified 03/17/19 17:18) Hives naproxen Allergy (Verified 03/17/19 17:18) Unknown potassium clavulanate [From Augmentin] Allergy (Verified 03/17/19 17:18) Unknown Sulfa (Sulfonamide Antibiotics) Allergy (Verified 03/17/19 17:18) Unknown amlodipine Adverse Reaction (Severe, Verified 03/17/19 17:18) Unknown haloperidol lactate [From Haldol] Adverse Reaction (Unknown, Verified 03/17/19 17:18) agitation amoxicillin trihydrate [From Augmentin] Adverse Reaction (Verified 03/17/19 17:18) Upset Stomach hydromorphone HCl [From Dilaudid] Adverse Reaction (Verified 03/17/19 17:18) Other HALLUCINATIONS hydroxychloroquine sulfate [From Plaquenil] Adverse Reaction (Verified 03/17/19 17:18) Other VISION ISSUES Primary Care Physician: Demarco Lopez MD [Primary Care Provider] - Prior records reviewed: Yes Surgical History: angioplasty, - - Carpal tunnel syndrome Lives: Alone Smoking Status: Never smoker - Family History Paternal Family History: Family History (Last Reviewed 07/22/18 @ 10:47 by Maribeth Pollack) Father No problems noted. Family History: Reports: Cancer - breast, - Maternal Family History: Family History (Last Reviewed 07/22/18 @ 10:47 by Maribeth Pollack) Father No problems noted. Family History: Reports: Cancer - breast, - Review of Systems General: Denies: Chills, Fever, Sweats Eyes: Reports: Blurred Vision - bilaterally. Denies: Visual changes - bilaterally, Diplopia ENT: Denies: Bilateral ear pain, Rhinorrhea Cardiovascular: Denies: Chest pain, Palpitations Respiratory: Denies: Dyspnea, Cough, Dyspnea on exertion Gastrointestinal: Reports: Nausea. Denies: Abdominal pain, Vomiting, Diarrhea, Constipation, Melena, Hematochezia, -, - Genitourinary: Denies: Dysuria, Hematuria, Frequency Musculoskeletal: Reports: Neck pain - He reports chronic neck pain. Please read HPI. Denies: Myalgias, Arthralgias, Back pain, Swelling, Extremity Pain, -, - Skin: Denies: Rash, Wounds Neurological: Reports: Headache Hematologic: Denies: Easy bruising, Easy bleeding Physical Exam Vital Signs/Narrative: Vital Signs Temp Pulse Resp BP Pulse Ox 03/17/19 17:15 97.6 F L 71 20 H 139/77 H 95 Inital Vital Signs reviewed: Yes General: Well nourished, Well developed Head: Normocephalic, Trauma, Tenderness - Left maxillary and periorbital region, - - There are no clinical findings of basilar skull fracture. Eyes: Perrl, EOMI, - - Is no subconjunctival hemorrhage.. Negative for: Pale conjunctiva, Scleral icterus ENT: TM's clear, No hemotympanum or drainage, No trauma. Negative for: Hemotympanum, Otorrhea, Nasal trauma, Nasal septal hematoma Neck: Nontender, Full ROM, Paraspinal Tenderness. Negative for: Spinal Tenderness Cardiovascular: Regular rate, Regular rhythm, No murmurs, Normal S1, Normal S2 Respiratory: No distress, CTA bilaterally, Chest nontender Back: Nontender Skin: Normal color, No rash, Trauma. Negative for: Cyanosis, Diaphoresis, Jaundice, No Trauma Neurological: Alert, Oriented x3, Cranial nerves II-XII grossly intact, Normal Strength, Normal Sensation, Normal DTR Psychological: Normal affect - Glascow Coma Scale Eye Opening: Spontaneous Motor: Obeys Commands Verbal: Oriented Coma Scale Total: 15 Diagnostic/Tx/Re-eval Impressions Brain CT 03/17/19 17:58 IMPRESSION: Age-related changes of the brain. Posterior scalp hematoma. Electronically Signed: Jose Overton DO at 18:49 EST Tel [phone], Service support , 03/17/19 17:58 CT Head [Brain/Head without Contrast] [CT] Stat Since the CAT scan reveals no intracranial bleed and fall occurred 3 days ago plan is to disc discharged home. - Medical Decision Making With history of head trauma, amnesia on anticoagulant with neurologic symptoms and problems with gait CT of the head was obtained to evaluate for intracranial bleed. This may also represent a concussion. If the CAT scan is negative, plan is to discharge to home. ED Disposition - Plan for ED Patient: Disposition: Home or Assisted Living Diagnosis: Head injury, closed, with LOC of unknown duration Instructions: CONCUSSION, No Wake Up Referrals: Demarco Lopez MD [Primary Care Provider] - 1 Week if not improving
== END 2019-03-17 20:00 | disposition home or self-care (01) ==
PROVIDERS: Emergency Provider Emergency Medicine; Family Provider Family Medicine; PCP Family Medicine
DX: S06.0X9A Concussion with loss of consciousness of unspecified duration, initial encounter (principal); S00.03XA Contusion of scalp, initial encounter; R40.2410 Glasgow coma scale score 13-15, unspecified time; W19.XXXA Unspecified fall, initial encounter; Y93.9 Activity, unspecified; Y92.9 Unspecified place or not applicable; M54.2 Cervicalgia; G89.29 Other chronic pain; D50.9 Iron deficiency anemia, unspecified; I25.10 Atherosclerotic heart disease of native coronary artery without angina pectoris; I11.0 Hypertensive heart disease with heart failure; I50.32 Chronic diastolic (congestive) heart failure; E78.5 Hyperlipidemia, unspecified; Z95.5 Presence of coronary angioplasty implant and graft; Z79.899 Other long term (current) drug therapy
CPT/HCPCS: 70450; 99282

== ENCOUNTER 2019-03-19 22:09 | Inpatient (IN) | payer MEDICARE, SELFPAY ==
[2019-03-19 22:10] VITALS: BP 156/74; PULSE 79; RESP 16; TEMP 36.8; O2SAT 97; BMI 20.9
--- NOTE | 2019-03-19 22:41 | CT_ITS ---
STUDY: CT BRAIN WITHOUT CONTRAST REASON FOR EXAM: Female, 78 years old. Fall, head laceration. On Eliquis. RADIATION DOSAGE (If Supplied By Facility): CTDIvol = ( 44.99 ) mGy, DLP = ( 796.11 ) mGycm TECHNIQUE: Transaxial CT imaging of the brain was performed without administration of intravenous contrast material. Individualized dose optimization techniques were used for this CT. COMPARISON: March 17, 2019. FINDINGS: Moderate size posterior parietal scalp hematoma midline /slightly right parasagittal, not significantly changed since the prior study. Normal calvarium. Normal size ventricles and extra-axial spaces for the patient's age. Normal white matter tracts of the cerebral hemispheres. Normal basal ganglia and thalami. Normal brainstem. Normal cerebellum. There is no intracranial hemorrhage. There are no findings of an acute ischemic infarction. Normal visualized paranasal sinuses. Atherosclerotic calcification of the intracranial internal carotid arteries. CT/Brain/Head without Contrast IMPRESSION: No acute intracranial abnormality. Normal brain for the patient's age. Posterior parietal scalp hematoma not significantly changed. Electronically Signed: Satya Guillen MD at 0:13 EST , Service support ,
--- NOTE | 2019-03-19 22:43 | RAD_ITS ---
STUDY: X-RAY - PELVIS AND LEFT HIP REASON FOR EXAM: Female, 78 years old. Fall. Left hip pain with limited range of motion. TECHNIQUE: 3 views of the pelvis and hip. COMPARISON: [employer] Of [employer] view CT abdomen and pelvis February 16, 2017. FINDINGS: There is a non-specific bowel gas pattern. Normal visualized soft tissue structures. Normal bilateral iliac wings, sacroiliac joints and visualized sacrum. There is minimal irregularity left inferior pubic ramus probably related to projection or old trauma. Normal pubic symphysis. Normal bilateral ischial tuberosities. Total bilateral hip arthroplasties in normal alignment without evidence of loosening. No hip fracture identified. RAD/HIP, UNI W/ Pelvis 2-3 Views IMPRESSION: No fracture involving the pelvis or left hip. Total bilateral hip arthroplasties in normal alignment. Minimal irregularity left inferior pubic ramus of doubtful clinical significance. Electronically Signed: Satya Guillen MD at 0:23 EST , Service support ,
--- NOTE | 2019-03-19 22:43 | RAD_ITS ---
STUDY: X-RAY - LEFT SHOULDER REASON FOR EXAM: Female, 78 years old. Limited range of motion after fall. TECHNIQUE: 2 view(s) of the shoulder. COMPARISON: Chest x-ray February 13, 2019. Shoulder April 23, 2015. FINDINGS: Normal glenohumeral articulation. Normal acromioclavicular joint. Normal acromion. Transverse fracture proximal metaphysis with impaction. No dislocation. Appearance is similar to the prior shoulder series. The soft tissue structures are unremarkable. Normal visualized pulmonary apex. Left-sided port with the tip overlying the right atrium. RAD/Shoulder min 2 Views IMPRESSION: Transverse fracture proximal humeral metaphysis with impaction which may represent an old injury. A fracture of the humeral head and neck was present on the prior shoulder series of 2015. If there is a high clinical suspicion of an acute fracture correlate with CT. Electronically Signed: Satya Guillen MD at 0:20 EST , Service support ,
--- NOTE | 2019-03-19 22:44 | ED.VIS.FALL ---
History of Present Illness Chief Complaint: Fall Informant: Patient Occurred: Today Mechanism/Context: Same level fall - turned quickly and lost her balance, falling to floor. Negative for: Prodromal, Dizziness, Vertigo, Lightheadedness, Near-syncope Location: left shoulder, left hip, head/scalp Quality of Pain: Aching Current Severity: Moderate Maximum Severity: Severe Worsened by: movement left side Relieved by: remaining still Associated Symptoms: Inability to ambulate. Negative for: Parasthesias, Weakness, Loss of consciousness, Amnesia Narrative: Patient has had no recent illness except for edema in her legs for the past 5 weeks or so, she has been put on Lasix for that. She turned tonight and suddenly lost her balance causing her to fall to her left side. She hit her head thinks on a door handle, causing a laceration. She is on Eliquis. Also injured her left shoulder which is now difficult to move and was already limited since her remote fracture that healed without surgery, as well as her left hip that she had a total hip arthroplasty for after a fracture in the past. She has had that on both hips. She denies any other injury or pain. She was just seen here 2 days ago for a similar fall and head injury and had negative scans. Tonight, even with assistance she was unable to stand or bear weight on her left lower extremity. - Past Medical History (1) Iron deficiency anemia Status: Chronic (2) Atherosclerotic heart disease of [place] coronary artery without angina pectoris Status: Chronic (3) Chronic diastolic (congestive) heart failure Status: Chronic (4) Essential (primary) hypertension Status: Chronic (5) Hyperlipemia Status: Chronic (6) History of coronary artery stent placement Status: Resolved Comment: PCI-NIGHAT-RCA w/ 2.5 x 28 mm Promus Stent x 2, NIGHAT-[place] w/ 2.25 x 20 Taxus Stent 05/21/2009 Past Medical History - Allergies and Home Meds Allergies/Adverse Reactions: Allergies adalimumab [From Humira] Allergy (Verified 03/19/19 22:15) Rash ciprofloxacin HCl [From Cipro] Allergy (Verified 03/19/19 22:15) Unknown latex Allergy (Verified 03/19/19 22:15) Rash levofloxacin [From Levaquin] Allergy (Verified 03/19/19 22:15) Unknown lisinopril Allergy (Verified 03/19/19 22:15) Other COUGH Methotrexate Analogues Allergy (Verified 03/19/19 22:15) Hives naproxen Allergy (Verified 03/19/19 22:15) Unknown potassium clavulanate [From Augmentin] Allergy (Verified 03/19/19 22:15) Unknown Sulfa (Sulfonamide Antibiotics) Allergy (Verified 03/19/19 22:15) Unknown amlodipine Adverse Reaction (Severe, Verified 03/19/19 22:15) Unknown haloperidol lactate [From Haldol] Adverse Reaction (Unknown, Verified 03/19/19 22:15) agitation amoxicillin trihydrate [From Augmentin] Adverse Reaction (Verified 03/19/19 22:15) Upset Stomach hydromorphone HCl [From Dilaudid] Adverse Reaction (Verified 03/19/19 22:15) Other HALLUCINATIONS hydroxychloroquine sulfate [From Plaquenil] Adverse Reaction (Verified 03/19/19 22:15) Other VISION ISSUES Primary Care Physician: Demarco Lopez MD [Primary Care Provider] - Surgical History: angioplasty, total hip arthroplasty - Bilateral, - - Carpal tunnel syndrome Lives: Alone Smoking Status: Never smoker - Family History Paternal Family History: Family History (Last Reviewed 07/22/18 @ 10:47 by Maribeth Pollack) Father No problems noted. Family History: Reports: Cancer - breast, - Maternal Family History: Family History (Last Reviewed 07/22/18 @ 10:47 by Maribeth Pollack) Father No problems noted. Family History: Reports: Cancer - breast, - Review of Systems General: Denies: Chills, Fever, Sweats Eyes: Denies: Visual changes - bilaterally, Diplopia ENT: Denies: Rhinorrhea, Sore throat Cardiovascular: Denies: Chest pain, Palpitations Respiratory: Denies: Dyspnea, Cough, Dyspnea on exertion Gastrointestinal: Denies: Abdominal pain, Nausea, Vomiting, Diarrhea, Melena, Hematochezia Genitourinary: Denies: Dysuria, Hematuria, Frequency Musculoskeletal: Reports: Swelling, Extremity Pain. Denies: Back pain Skin: Reports: Wounds. Denies: Rash Neurological: Denies: Headache, Weakness, Numbness Physical Exam Vital Signs/Narrative: Vital Signs Temp Pulse Resp BP Pulse Ox 03/19/19 22:10 98.3 F 79 16 156/74 H 97 Inital Vital Signs reviewed: Yes General: Well nourished, Well developed, - - Keenly alert, well-appearing, no acute distress Head: Normocephalic - No crepitance/depression, Trauma - 2 cm laceration full-thickness, top of scalp. Very mild bleeding. Eyes: Perrl, EOMI ENT: TM's clear, No hemotympanum or drainage, No trauma Neck: Nontender, Full ROM. Negative for: Spinal Tenderness Cardiovascular: Regular rate, Regular rhythm, No murmurs. Negative for: Tachycardia Respiratory: No distress, CTA bilaterally, Chest nontender Abdomen: Soft, Nontender, Nondistended, Normal bowel sounds Back: Nontender. Negative for: Spinal Tenderness Extremeties: Tenderness in the left proximal humerus without deformity. Limited range of motion secondary to pain. No tenderness at the AC joint or deformity there. Tender at the posterior aspect of the left lower extremity greater tuberosity. ASIS nontender, pelvis stable to AP compression. Very limited range of motion secondary to pain in the left hip. No pain or tenderness in the back. Right lower extremity has full range of motion without difficulty as does the right upper extremity. No tenderness/trauma to the left knee, distal femur, or distally. Skin: Normal color, No rash Neurological: Alert, Oriented x3, Cranial nerves II-XII grossly intact, Normal Strength, Normal Sensation, - - GCS 15 Psychological: Normal affect, Normal Mood Diagnostic/Tx/Re-eval Laboratory Results 03/19/19 03/19/19 23:11 23:11 WBC 12.5 H RBC 3.10 L Hgb 9.2 L Hct 29.4 L MCV 94.8 MCH 29.7 MCHC 31.3 L RDW Std Deviation 63.7 H RDW Coeff of [place] 19.2 H Plt Count 188 MPV 11.6 Immature Gran % (Auto) 2.000 H Neut % (Auto) 79.9 H Lymph % (Auto) 8.9 L [place] % (Auto) 8.0 Eos % (Auto) 0.9 Baso % (Auto) 0.3 Absolute Neuts (auto) 10.0 H Absolute Lymphs (auto) 1.11 Nucleated RBC % 0 Sodium 141 Potassium 4.1 Chloride 112 H Carbon Dioxide 22.0 Anion Gap 7 BUN 42 H Creatinine 2.30 H Estim Creat Clear Calc 17.13 Est GFR (MDRD) Af Amer 26 L Est GFR (MDRD) Non-Af 22 L BUN/Creatinine Ratio 18.3 Glucose 118 H Calcium 8.6 Troponin I 0.061 H - Medical Decision Making On my interpretation x-rays 3 views of the pelvis and left hip appear to show an inferior pubic ramus fracture on the left. She has bilateral total hip arthroplasties that are intact without any periprosthetic fractures noted. Her left shoulder x-rays 2 views appear to show chronic findings I see no definite fracture there. CT the head report is pending and appears to show no hemorrhage. Her laceration was repaired. She has chronic renal insufficiency that is similar to prior, which may be why her low-dose Lasix is not helping her edema. Daughter thinks the edema has been getting worse and may be related to her falls which have been more frequent lately. She is not able to bear weight on her left lower extremity or walk tonight. We will admit her for that reason to observation. None of these injuries will likely require surgery. Her troponin is nonspecifically elevated which has been the case several times in the past. I am getting an EKG to make sure there is no sign of injury. She does not have any symptoms to suggest this will be the case. Plan is as above. Discussed with hospitalist. Procedures - Lacerations scalp Length: 2 cm Depth: Sub Q Shape: Linear Prep: Sterile Conditions, Chlorhexadine Laceration Repair: Lidocaine with epi - 1.5cc Irrigated (ml): 30 Number of Sutures/Blount: 3 - skin heriberto ED Disposition - Plan for ED Patient: Disposition: Acute Care Hospital [facility] Diagnosis: Scalp laceration, Recurrent falls, Closed fracture of left inferior pubic ramus, Injury of left shoulder and upper arm, Chronic renal insufficiency, Elevated troponin Referrals: Demarco Lopez MD [Primary Care Provider] -
[2019-03-19] MEDS: Morphine 2 MG/ML Syringe IV (23:13)
[2019-03-19 23:16] LABS: Absolute Lymphocyte Count 1.11 X10^3/uL (0.83-4.51); Basophil# 0.04 X10^3/uL; Basophil% 0.3 % (0-1); Eosinophil# 0.11 X10^3/uL; Eosinophils% 0.9 % (0-5); Hematocrit 29.4 % (37-47); Hemoglobin 9.2 g/dL (12.0-15.0); Lymphocyte # 1.11 X10^3/ul (4.0); Lymphocyte % 8.9 % (19-41); Mean Corp Hgb Conc 31.3 g/dL (32-36); Mean Corpuscular Hgb 29.7 pg (27.0-32.0); Mean Corpuscular Volume 94.8 fL (81-99); Mean Platelet Vol. 11.6 fl (6.2-12.0); NRBC Flagged by Analyzer 0 % (0-5); Neutrophil # 9.97 X10^3/uL (2.7-7.7); Neutrophil % 79.9 % (47-70); Platelet Count 188 K/mm3 (150-450); RBC Distribution Width CV 19.2 % (11.6-14.6); RBC Distribution Width SD 63.7 fl (35.1-43.9); White Blood Count 12.5 K/mm3 (4.4-11.0)
[2019-03-19 23:38] LABS: Anion Gap 7 (5-15); BUN 42 mg/dL (7-18); BUN/Creat Ratio 18.3 RATIO (10-20); Calcium,Total 8.6 mg/dL (8.5-10.1); Chloride 112 mmol/L (98-107); EST Glomerular Filtration Rate 22 mL/min (>60); Est Glom Filt Rate - Afr Amer 26 mL/min (>60); Estimated Creatinine Clearance 17.13 ml/min; Glucose 118 mg/dL (74-106); Potassium 4.1 mmol/L (3.5-5.1); Sodium Level 141 mmol/L (136-145)
[2019-03-20] VITALS (8 sets, daily range): BP systolic 124–150; BP diastolic 56–76; PULSE 69–73; RESP 15–18; TEMP 36.7–36.8; O2SAT 88–94; BMI 20.7
--- NOTE | 2019-03-20 00:11 | EKG12_ITS ---
Test Reason : ELEVATED TROP Blood Pressure : / mmHG Vent. Rate : 069 BPM Atrial Rate : 069 BPM P-R Int : 180 ms QRS Dur : 156 ms QT Int : 454 ms P-R-T Axes : 072 -69 088 degrees QTc Int : 486 ms Normal sinus rhythm Right bundle branch block Left anterior fascicular block Bifascicular block Anterior infarct , age undetermined Abnormal ECG Confirmed by BENJY ROME, RITU ([id number]), editor index ROMAIN DIAL ([id number]) on 03/23/2019 9:55:13 AM Referred By: SHARYN Confirmed By:FRAN BURLESON MD
[2019-03-20 00:18] LABS: Mucous, Urine 0 SEEN /hpf (<or=2+); Squamous Epithelial Cells - UA 0 SEEN /hpf (5-10)
[2019-03-20 00:22] LABS: Color, Urine Yellow (Yellow); Glucose, Dipstick Normal (Normal); Ketone-Dipstick Negative (Negative); Leukocyte Esterase-Dipstick 100 /ul (Negative); Nitrite-Dipstick Positive (Negative); Occult Blood-Urine 25 /ul (Negative); Protein-Dipstick 100 mg/dl (Negative); Urine Bilirubin Dipstick Negative (Negative); Urine Clarity Sl. Cloudy (Clear); Urine Urobilinogen Normal (Normal)
[2019-03-20 00:32] LABS: Bacteria 3+ /hpf (None Seen); Red Blood Cells-Urine 0-5 SEEN /hpf (0-5); White Blood Cells 5-10 SEEN /hpf (0-5)
--- NOTE | 2019-03-20 02:11 | HP.PCM_ITS ---
History of Present Illness Date of Admission: 03/20/19 Chief Complaint: Fell The patient is a 78 year old F with PMH as below who presents after mechanical fall at home. She says that she try to turn around too quickly and lost her balance. She denies any lightheadedness or dizziness. She did not did not have any chest pain, shortness of breath, or palpitations prior to the fall. She did not black out or lose conscious though though she did hit her head. The CT scan of her brain in the ER did not show any head bleed, and the laceration was repaired by the ER physician. She was seen here 2 days ago for another fall. On admission she was found to have a UTI and was started on IV antibiotics and a urine culture was obtained as well in the ER. She did have a leukocytosis initially on admission with white count of 12.5. Her other labs were at baseline. She did have a slightly elevated troponin which appears to be fairly chronic given her CKD 4. She does not have any injury on x-rays, there is no sign of of the fracture however she says that the pelvic pain is severe enough that she is unable to walk. Past Medical History Past Medical History (Chronic Problems): Chronic Problems (Last Reviewed 06/21/18 @ 14:11 by Nahid Hernandez MD) Iron deficiency anemia (Chronic) Chronic renal insufficiency (Chronic) Chronic diastolic (congestive) heart failure (Chronic) Essential (primary) hypertension (Chronic) Atherosclerotic heart disease of [place] coronary artery without angina pectoris (Chronic) Hyperlipemia (Chronic) Medical History: Medical History (Last Reviewed 06/21/18 @ 14:11 by Nahid Hernandez MD) Chronic diastolic (congestive) heart failure (Chronic) I50.32 Essential (primary) hypertension (Chronic) I10 Atherosclerotic heart disease of [place] coronary artery without angina pectoris (Chronic) I25.10 Hyperlipemia (Chronic) E78.5 Anemia D64.9 Chronic kidney disease, stage 3 (moderate) N18.3 History of Sjogren's disease Z87.39 Rheumatoid arthritis M06.9 ARF (acute renal failure) (Resolved) GI bleed K92.2 Syncope and collapse R55 Diastolic dysfunction (Inactive) I51.9 Left ventricular hypertrophy (Inactive) I51.7 Allergies adalimumab [From Humira] Allergy (Verified 03/19/19 22:15) Rash ciprofloxacin HCl [From Cipro] Allergy (Verified 03/19/19 22:15) Unknown latex Allergy (Verified 03/19/19 22:15) Rash levofloxacin [From Levaquin] Allergy (Verified 03/19/19 22:15) Unknown lisinopril Allergy (Verified 03/19/19 22:15) Other COUGH Methotrexate Analogues Allergy (Verified 03/19/19 22:15) Hives naproxen Allergy (Verified 03/19/19 22:15) Unknown potassium clavulanate [From Augmentin] Allergy (Verified 03/19/19 22:15) Unknown Sulfa (Sulfonamide Antibiotics) Allergy (Verified 03/19/19 22:15) Unknown amlodipine Adverse Reaction (Severe, Verified 03/19/19 22:15) Unknown haloperidol lactate [From Haldol] Adverse Reaction (Unknown, Verified 03/19/19 22:15) agitation amoxicillin trihydrate [From Augmentin] Adverse Reaction (Verified 03/19/19 22:15) Upset Stomach hydromorphone HCl [From Dilaudid] Adverse Reaction (Verified 03/19/19 22:15) Other HALLUCINATIONS hydroxychloroquine sulfate [From Plaquenil] Adverse Reaction (Verified 03/19/19 22:15) Other VISION ISSUES Home Medications: Ambulatory Orders Medication Instructions Recorded Multivit-Min/FA/Lycopen/Lutein 1 ea PO DAILY 04/01/15 [Centrum Silver Tablet] nitroglycerin 0.4 mg sublingual 0.4 mg SUBLINGUAL PRN PRN #25 tab 01/31/18 tablet Cholecalciferol (Vitamin D3) 5,000 unit PO DAILY 06/06/18 [Vitamin D3] Cyanocobalamin (Vitamin B-12) 1,000 mcg PO DAILY 06/06/18 [B-12] Vit C/E/Zn/Coppr/Lutein/Zeaxan 1 ea PO BID 06/06/18 [Preservision Areds 2 Softgel] atorvastatin 20 mg tablet 20 mg PO QHS 06/21/18 omega-3 fatty acids 1,000 mg 1,000 mg PO DAILY 06/21/18 capsule potassium chloride ER 10 mEq 10 meq PO QHS cap 06/21/18 capsule,extended release Brimonidine Tartrate/Timolol 1 drp EACH EYE BID 02/13/19 [Combigan Eye Drops] Latanoprost 1 drp EACH EYE QHS 02/13/19 acetaminophen 325 mg tablet 325 mg PO Q6H PRN PRN tab 02/19/19 amlodipine 5 mg tablet 2.5 mg PO DAILY 02/19/19 isosorbide mononitrate ER 60 mg 60 mg PO BID tab 02/19/19 tablet,extended release 24 hr furosemide 20 mg tablet 40 mg PO DAILY 03/14/19 Fluticasone Propionate [Flonase 2 spray INTRANASAL DAILY 03/20/19 Allergy Relief] Metoprolol Tartrate [Lopressor 75 mg PO BID 03/20/19 (beta elena)] Ranolazine [Ranexa] 1,000 mg PO BID 03/20/19 Surgical History: Surgical History (Last Updated 07/22/18 @ 10:47 by Maribeth Pollack) History of coronary artery stent placement (Resolved) Onset Date: 05/21/09 Z95.5 PCI-NIGHAT-RCA w/ 2.5 x 28 mm Promus Stent x 2, NIGHAT-Ramus w/ 2.25 x 20 Taxus Stent 05/21/2009 History of carpal tunnel release Z98.890 History of left heart catheterization Onset Date: 06/07/18 Z98.890 History of left hip replacement Z96.642 History of right hip hemiarthroplasty Z96.641 Surgical History: angioplasty, total hip arthroplasty - Bilateral, - - Carpal tunnel syndrome Lives: Alone Smoking Status: Never smoker - *Family History Paternal Family History: Family History (Last Reviewed 07/22/18 @ 10:47 by Maribeth Pollack) Father No problems noted. History Items: Cancer - breast, - Maternal Family History: Family History (Last Reviewed 07/22/18 @ 10:47 by Maribeth Pollack) Father No problems noted. History Items: Cancer - breast, - Review of Systems Constitutional: Denies: Chills, Fever, Weight Change HEENT: Reports: Head Aches. Denies: Sinus Congestion, Sinus Drainage Cardiovascular: Denies: Chest Pain, Palpitations Respiratory: Denies: Cough, Shortness of breath at rest, Sputum production Gastrointestinal: Denies: Abdominal Pain, Nausea, Vomiting Genitourinary: Denies: Dysuria Musculoskeletal: Reports: - - Left pelvic pain. Denies: Joint Pain, Joint Tenderness Skin: Reports: Wounds - Scalp wound. Denies: Rash Neurological: Denies: Numbness, Tingling, Focal weakness Psychiatric: Denies: Anxiety, Depression Hematologic/ Lymphatic: Denies: Easy Bruising, Easy Bleeding VTE Information - Inpt Only VTE Present on Admission: No Patient Problems: Active and Suspected Problems (Last Reviewed 06/21/18 @ 14:11 by Nahid Hernandez MD) Scalp laceration (Acute) Recurrent falls (Acute) Closed fracture of left inferior pubic ramus (Acute) Injury of left shoulder and upper arm (Acute) Elevated troponin (Acute) - Physical Exam Vitals/I&O's: Vital Signs Temp Pulse Resp BP Pulse Ox 98.3 F 71 15 145/71 H 94 03/20/19 01:43 03/20/19 01:43 03/20/19 01:43 03/20/19 01:43 03/20/19 01:43 Oxygen Flow Rate (L/min) 1 Oxygen Delivery Method Nasal Cannula Weight: 120 lb 9.486 oz Body Mass Index (BMI) 20.7 General: Alert, Oriented x3, Cooperative, No apparent distress HEENT: Atraumatic, PERRLA, EOMI, Normocephalic Oral: Moist Mucosa Neck: Supple, No JVD Lungs: Clear to auscultation, Normal air movement, No rhonchi, No wheeze, No rales, Diminished Cardiovascular: Regular rate, Regular Rhythm, Normal S1, Normal S2, No murmurs Abdomen: Soft, Non Tender, Non-Distended, No Hepato-splenomegaly Extremities: Edema - 2+ pitting edema bilaterally up to her knees Skin: Ulcer/ Wound - Posterior scalp laceration repaired in the ER Neurological: Neuro grossly intact, Sensory exam intact to light touch and pain Psych/Mental Status: Normal Affect, Appropriate Laboratory Results 03/19/19 23:11: WBC 12.5 H, RBC 3.10 L, Hgb 9.2 L, Hct 29.4 L, MCV 94.8, MCH 29.7, MCHC 31.3 L, RDW Std Deviation 63.7 H, RDW Coeff of Myke 19.2 H, Plt Count 188, MPV 11.6, Immature Gran % (Auto) 2.000 H, Neut % (Auto) 79.9 H, Lymph % (Auto) 8.9 L, [place] % (Auto) 8.0, Eos % (Auto) 0.9, Baso % (Auto) 0.3, Absolute Neuts (auto) 10.0 H, Absolute Lymphs (auto) 1.11, Nucleated RBC % 0 03/19/19 23:11: Sodium 141, Potassium 4.1, Chloride 112 H, Carbon Dioxide 22.0, Anion Gap 7, BUN 42 H, Creatinine 2.30 H, Estim Creat Clear Calc 17.13, Est GFR (MDRD) Af Amer 26 L, Est GFR (MDRD) Non-Af 22 L, BUN/Creatinine Ratio 18.3, Glucose 118 H, Calcium 8.6, Troponin I 0.061 H 03/20/19 00:13: Urine Color Yellow, Urine Clarity Sl. Cloudy, Urine pH 6.0, Ur Specific [place] 1.010, Urine Protein 100 H, Urine Glucose (UA) Normal, Urine Ketones Negative, Urine Occult Blood 25 H, Urine Nitrite Positive H, Urine Bilirubin Negative, Urine Urobilinogen Normal, Ur Leukocyte Esterase 100 H, Urine RBC 0-5 SEEN, Urine WBC 5-10 SEEN, Ur Squamous Epith Cells 0 SEEN, Urine Bacteria 3+, Urine Mucus 0 SEEN Current Medications Heparin Sodium (Beef Lung) () 50 units IV UD PRN PRN Reason: Port-a-Cath (VAD)Heparin Flush Heparin Sodium (Porcine) (Heparin Na) 5,000 unit SC Q8 JOSLYN Ceftriaxone Sodium 2 gm/ (Sodium Chloride) 50 mls @ 100 mls/hr IV QHS JOSLYN Sodium Chloride () 10 - 40 ml IV UD PRN PRN Reason: Port-a-Cath (VAD) Flush Sodium Chloride (0.9% Nacl (Sterile) Posiflush) 10 - 40 ml IV UD PRN PRN Reason: Port access or dressing change Assessment/Plan All Active Problems (Last Reviewed 06/21/18 @ 14:11 by Nahid Hernandez MD) Scalp laceration (Acute) Recurrent falls (Acute) Closed fracture of left inferior pubic ramus (Acute) Injury of left shoulder and upper arm (Acute) Chest pain (Acute) History of coronary artery stent placement (Resolved 05/21/09) Elevated troponin (Acute) ARF (acute renal failure) (Resolved) Fracture of femoral neck, left (Resolved) Hypertensive emergency (Resolved) Pyelonephritis, acute (Resolved) 1. Mechanical fall likely secondary to UTI -X-rays are unremarkable, no signs of fracture -CT of the brain was negative for bleed -Laceration repaired in the ER -Urine culture pending, continue with Rocephin -PT/OT, patient refuses SNF 2. CAD status post stent/HTN/HLD/chronic diastolic CHF -Pressure stable, will continue with her home medication -He has significant lower extremity edema which she says started after she was started on Norvasc, the dose has been decreased from 10 to 5 mg -Continue with her home medications 3. CKD 4 -Creatinine appears to be at baseline, but this explains her chronically elevated or borderline troponins -EKG was unremarkable and no chest pain at this time 4. Glaucoma -Stable -Continue with her home eyedrops 5. Rheumatoid arthritis/Sjogren's/peripheral neuropathy -These diseases have been fairly stable, she is not on any home medications she used to be on Humira -We will monitor DVT: Heparin Code Visit OBSV E&M: 97131 Initial observation care L3
[2019-03-20] MEDS: Acetaminophen 325 MG Tablet 650 MG PO ×3 (02:46→16:05)
[2019-03-20] MEDS: Heparin Injection (Vial) 5,000 UNIT/ML VIAL 5000 UNIT SC ×3 (05:38→22:12)
[2019-03-20] MEDS: 0.9% Saline Lock 10 ML Syringe IV ×2 (06:06→22:11)
[2019-03-20 06:09] LABS: Absolute Lymphocyte Count 1.06 X10^3/uL (0.83-4.51); Absolute Neutrophil Count 9.5 X10^3/uL (2.0-7.7); Basophil# 0.03 X10^3/uL; Basophil% 0.3 % (0-1); Eosinophil# 0.03 X10^3/uL; Eosinophils% 0.3 % (0-5); Hematocrit 29.8 % (37-47); Hemoglobin 9.3 g/dL (12.0-15.0); Lymphocyte # 1.06 X10^3/ul (4.0); Lymphocyte % 8.9 % (19-41); Mean Corp Hgb Conc 31.2 g/dL (32-36); Mean Corpuscular Hgb 29.7 pg (27.0-32.0); Mean Corpuscular Volume 95.2 fL (81-99); Monocyte# 1.17 X10^3/uL; Monocyte% 9.8 % (0-10); NRBC Flagged by Analyzer 0 % (0-5); Neutrophil # 9.49 X10^3/uL (2.7-7.7); Neutrophil % 79.5 % (47-70); POSITIVE MORPHOLOGY YES; Platelet Count 181 K/mm3 (150-450); RBC Distribution Width CV 19.2 % (11.6-14.6); RBC Distribution Width SD 65.1 fl (35.1-43.9); Red Blood Count 3.13 M/mm3 (4.2-5.4); White Blood Count 11.9 K/mm3 (4.4-11.0)
[2019-03-20 06:16] LABS: Differential Indicated SCAN CRITERIA MET
[2019-03-20 06:22] LABS: Anion Gap 10 (5-15); BUN 42 mg/dL (7-18); BUN/Creat Ratio 19.4 RATIO (10-20); Calcium,Total 8.5 mg/dL (8.5-10.1); Chloride 110 mmol/L (98-107); Creatinine, Serum 2.17 mg/dL (0.55-1.02); EST Glomerular Filtration Rate 23 mL/min (>60); Est Glom Filt Rate - Afr Amer 28 mL/min (>60); Estimated Creatinine Clearance 18.15 ml/min; Glucose 116 mg/dL (74-106); Potassium 4.6 mmol/L (3.5-5.1); Sodium Level 142 mmol/L (136-145)
[2019-03-20 06:58] LABS: Anisocytosis 1+; Differential Comment SCANNED
[2019-03-20] MEDS: BRIMONIDINE 0.2% 5ML BOTTLE 1 DRP EACH EYE ×2 (08:24→22:12)
[2019-03-20] MEDS: Timolol 0.5% 5ML OPTH.BTL 1 DRP EACH EYE ×2 (08:24→22:12)
[2019-03-20] MEDS: Multivitamins,Ther W-Minerals Tablet 1 TABLET PO ×2 (08:24→16:04)
[2019-03-20] MEDS: amLODIPine 2.5 MG Tablet PO (08:25)
[2019-03-20] MEDS: Isosorbide Mononitrate 60 MG Tablet PO ×2 (08:25→22:12)
[2019-03-20] MEDS: Metoprolol Tartrate 25 MG Tablet 75 MG PO ×2 (08:25→22:12)
[2019-03-20] MEDS: Ranolazine 500 MG Tablet 1000 MG PO ×2 (08:25→22:12)
[2019-03-20] MEDS: Furosemide 40 MG Tablet PO (08:25)
[2019-03-20] MEDS: oxyCODONE 5 MG Tablet PO ×3 (09:50→22:11)
[2019-03-20] MEDS: BENZOCAINE/MENTHOL 1 LOZENGE MUCOUS MEM (09:52)
--- NOTE | 2019-03-20 11:40 | CASEMGMT ---
RN IMAN DIRECTOR MULTIMEDIA CM to room to meet with patient for initial transition planning/care coordination assessment. RN IMAN introduced self and role at [facility]. Pt voices understanding and consents to assessment at this time. Pt sitting up in recliner chair, in no distress at this time. Daughter, Anaya, @ bedside. Pt is A/O at this time and answers all questions appropriately. Care providers, pharmacy, and demographics verified at this time. PCP: Dr Lopez Specialists: Recenterer--does not remember name, Dr Azul--oncologist, Dr Hernandez--cigarette filter inspector. Preferred Pharmacy: [facility] Insurance: [employer] Prescription Benefit: Yes Living Will/HPOA: has both LW and HCPOA, who is her son, Jewel. LNOK: 2 sons and a daughter. Living Arrangements: Lives alone. Son lives next door. Son, dtr, and a grandson checks on her daily DME: has the following DME: shower chair, raised toilet seat, rails/grab bars, hand held shower, cane, walker, W/C. Just ordered a medical alert button but has not received it yet. Pt states no need for further DME at this time. HHC/SNF: Hx: TCU and HHC (does not remember the name). PT/OT evals have been reviewed. Discussed discharge planning with pt and daughter. Pt agreeable to SNF. Krystyna MOONEY, made aware. PLAN: SNF Gume MAJOR RN, CM
--- NOTE | 2019-03-20 12:00 | CASEMGMT ---
Addendum entered by Krystyna Dong 03/20/19 16:00: SW received call from [facility] stating they are able to accept and submitted for pre-cert. Pt updated on acceptance to [facility] pending pre-cert. Plan: [facility] pending pre-cert Original Note: Social Work Note SW received referral that pt is agreeable to SNF and would like SNF in [place]. SW reviewed [employer] website and no SNF are listed in [place] that accept [employer]. SW placed a call to [facility] and [facility] states they do accept A[employer]na. SW also placed a call to [facility] and spoke with Cinda. Cinda states they are not in contact with [employer] but can do one time contracts but one time contracts are not guaranteed. SW in to speak with pt and pt's daughter Anaya present in room. SW introduced self and role at [facility]. Pt is alert and orientated x3. SW provided pt with list of SNF that accept pt's insurance and updated pt and Maria Eugenia on above information regarding SNF in [place] that accept pt's insurance. Pt asked about [facility]. SW informed pt that TCU does accept pt's insurance but that this worker is not sure if they have any beds available but can call. Pt states TCU is first choice. SW placed a call to referral line and spoke with Mercedes. Mercedes states TCU has a waitlist of 11 people and only bed open is next Sunday. SW in to update pt and Maria Eugenia that TCU doesn't have any beds available. Anaya states pt will be at [facility] for 1-2 more days as the swelling in pt's leg needs to go down and states TCU may have a bed by the time pt is ready for discharge. SW explained that pt cannot stay at [facility] until bed becomes available at TCU and explained that it is a process to get pt to SNF and pre-cert is required and it needs to be started today. Pt states understanding and is agreeable to [facility]. SW placed a call to [facility] at [facility] and provided referral. SW faxed referral. Plan: [facility] pending acceptance and pre-cert Krystyna Dong HYDROMETEOROLOGY TEACHER, VIRTUAL ASSISTANT FOR [employer]VERTISERS
[2019-03-20] MEDS: Multivitamin (Healthy Eyes) Capsule 1 CAP PO (12:45)
[2019-03-20] MEDS: Omega-3 Acid Ethyl Esters 1 GM Capsule PO (12:45)
[2019-03-20] MEDS: Fluticasone 0.05% 1 SPRAY NASAL.SRY 2 SPRAY NASAL (12:45)
[2019-03-20] MEDS: Cyanocobalamin 500 MCG Tablet 1000 MCG PO (12:46)
--- NOTE | 2019-03-20 15:45 | PCM.PN.BLA ---
<Carol Perry - Last Filed: 03/20/19 15:52> Progress Note Patient admitted this morning due to mechanical fall and UTI. Urine culture growing E. coli. Continue IV Rocephin. PT/OT. Other chronic medical conditions stable at this time. PT recommending additional therapy, patient has had a functional decline at home and requires assistance with ADLs, high fall risk. Agreeable to SNF. Await pre-cert. This patient was seen by MICHELLE He under the supervision of Dr. Wiseman. STROKE Vital Signs/Narrative: Vital Signs Temp Pulse Resp BP Pulse Ox 03/20/19 14:28 98.2 F 69 16 128/56 H 88 <Sanjay Wiseman - Last Filed: 03/20/19 17:13> Progress Note Seen and examined. Patient was admitted with mechanical fall. Patient fell on her left side. No loss of consciousness. She complained of pain over left pubic region and left hip. Patient had laceration on the scalp vault and was stapled in ER. Patient also has UTI and started on IV Rocephin. On exam: Tenderness over left hip and pubic region. Staple lacerated wound over scalp. Lungs: CTA. Air entry diminished in bilateral lung bases. Heart: S1-S2 regular, systolic murmur over aortic region. X-rays reviewed. He pelvis x-ray shows minimal irregularity of left inferior pubic ramus of doubtful clinical significance. Total bilateral hip arthroplasty in normal alignment. CT brain does not show acute abnormality. Preliminary urine culture shows more than 100,000 colonies of E. coli. Clinical Impression(s) from Imaging Studies Brain CT 03/19/19 22:41 IMPRESSION: No acute intracranial abnormality. Normal brain for the patient's age. Posterior parietal scalp hematoma not significantly changed. Hip/Pelvis X-Ray 03/19/19 22:43 IMPRESSION: No fracture involving the pelvis or left hip. Total bilateral hip arthroplasties in normal alignment. Minimal irregularity left inferior pubic ramus of doubtful clinical significance. Shoulder X-Ray 03/19/19 22:43 IMPRESSION: Transverse fracture proximal humeral metaphysis with impaction which may represent an old injury. A fracture of the humeral head and neck was present on the prior shoulder series of 2016. If there is a high clinical suspicion of an acute fracture correlate with CT. STROKE Vital Signs/Narrative: Vital Signs Temp Pulse Resp BP Pulse Ox 03/20/19 14:28 98.2 F 69 16 128/56 H 88
[2019-03-20] MEDS: Atorvastatin Calcium 20 MG Tablet PO (22:12)
[2019-03-20] MEDS: Latanoprost 0.005% 1 Bottle 1 DRP EACH EYE (22:13)
[2019-03-21] VITALS (8 sets, daily range): BP systolic 113–145; BP diastolic 60–70; PULSE 62–85; RESP 15–18; TEMP 36.6–36.9; O2SAT 86–96
[2019-03-21] MEDS: 0.9% Saline Lock 10 ML Syringe IV ×2 (05:04→09:25)
[2019-03-21 05:06] LABS: Absolute Lymphocyte Count 1.12 X10^3/uL (0.83-4.51); Absolute Neutrophil Count 7.4 X10^3/uL (2.0-7.7); Basophil# 0.03 X10^3/uL; Basophil% 0.3 % (0-1); Eosinophil# 0.16 X10^3/uL; Eosinophils% 1.6 % (0-5); Hematocrit 29.6 % (37-47); Hemoglobin 9.2 g/dL (12.0-15.0); Lymphocyte # 1.12 X10^3/ul (4.0); Lymphocyte % 11.2 % (19-41); Mean Corp Hgb Conc 31.1 g/dL (32-36); Mean Corpuscular Hgb 30.1 pg (27.0-32.0); Mean Corpuscular Volume 96.7 fL (81-99); Mean Platelet Vol. 11.9 fl (6.2-12.0); Monocyte# 1.25 X10^3/uL; Monocyte% 12.5 % (0-10); NRBC Flagged by Analyzer 0 % (0-5); Neutrophil # 7.38 X10^3/uL (2.7-7.7); Neutrophil % 73.5 % (47-70); POSITIVE MORPHOLOGY YES; Platelet Count 160 K/mm3 (150-450); RBC Distribution Width CV 19.9 % (11.6-14.6); RBC Distribution Width SD 65.5 fl (35.1-43.9); Red Blood Count 3.06 M/mm3 (4.2-5.4)
[2019-03-21 05:19] LABS: Anion Gap 6 (5-15); BUN 46 mg/dL (7-18); BUN/Creat Ratio 20.2 RATIO (10-20); Calcium,Total 8.4 mg/dL (8.5-10.1); Chloride 109 mmol/L (98-107); Creatinine, Serum 2.28 mg/dL (0.55-1.02); EST Glomerular Filtration Rate 22 mL/min (>60); Est Glom Filt Rate - Afr Amer 27 mL/min (>60); Estimated Creatinine Clearance 17.28 ml/min; Glucose 109 mg/dL (74-106); Potassium 4.9 mmol/L (3.5-5.1); Sodium Level 138 mmol/L (136-145)
[2019-03-21 05:32] LABS: Differential Indicated SCAN CRITERIA MET
[2019-03-21 05:58] LABS: Anisocytosis 1+; Differential Comment SCANNED
[2019-03-21] MEDS: Heparin Injection (Vial) 5,000 UNIT/ML VIAL 5000 UNIT SC ×2 (06:27→22:04)
[2019-03-21] MEDS: oxyCODONE 5 MG Tablet PO ×2 (07:18→16:35)
[2019-03-21] MEDS: BRIMONIDINE 0.2% 5ML BOTTLE 1 DRP EACH EYE ×2 (09:15→21:50)
[2019-03-21] MEDS: Multivitamins,Ther W-Minerals Tablet 1 TABLET PO ×2 (09:15→16:34)
[2019-03-21] MEDS: Metoprolol Tartrate 25 MG Tablet 75 MG PO ×2 (09:16→21:57)
[2019-03-21] MEDS: Multivitamin (Healthy Eyes) Capsule 1 CAP PO (09:16)
[2019-03-21] MEDS: Omega-3 Acid Ethyl Esters 1 GM Capsule PO (09:16)
[2019-03-21] MEDS: Isosorbide Mononitrate 60 MG Tablet PO ×2 (09:17→21:58)
[2019-03-21] MEDS: Ranolazine 500 MG Tablet 1000 MG PO ×2 (09:17→21:57)
[2019-03-21] MEDS: Cyanocobalamin 500 MCG Tablet 1000 MCG PO (09:18)
[2019-03-21] MEDS: Timolol 0.5% 5ML OPTH.BTL 1 DRP EACH EYE ×2 (09:18→21:54)
[2019-03-21] MEDS: Furosemide 40 MG/4 ML Vial IV (09:25)
--- NOTE | 2019-03-21 10:07 | PN_ITS ---
Patient Problems: Active and Suspected Problems (Last Reviewed 06/21/18 @ 14:11 by Nahid Hernandez MD) Scalp laceration (Acute) Recurrent falls (Acute) Closed fracture of left inferior pubic ramus (Acute) Injury of left shoulder and upper arm (Acute) Elevated troponin (Acute) Subjective: Patient seen and examined. Reports she ambulated this morning however had significant left hip pain with minimal ambulation. Plan for SNF pending pre- CERT. She denies urinary symptoms, fever, chills. Reports mild constipation. - Physical Exam Vitals/I&O's: Vital Signs Temp Pulse Resp BP Pulse Ox 98.4 F 69 16 142/70 H 93 03/21/19 08:09 03/21/19 09:16 03/21/19 08:09 03/21/19 08:09 03/21/19 08:09 Oxygen Flow Rate (L/min) 2 Oxygen Delivery Method Nasal Cannula Weight: 120 lb 9.486 oz Body Mass Index (BMI) 20.7 Intake and Output for Last 24 Hours 03/19/19 03/20/19 03/21/19 23:59 23:59 23:59 Intake Total 800 / 1000 400 / 400 Output Total 200 / 200 200 / 200 Balance 600 / 800 200 / 200 General: Alert, Oriented x3, Cooperative HEENT: Atraumatic, PERRLA, EOMI, Normocephalic Neck: Supple, No JVD, Negative Carotid Bruits Lungs: Clear to auscultation, Normal air movement Cardiovascular: Regular rate, Regular Rhythm, Normal S1, Normal S2, No murmurs Abdomen: Bowel Sounds Present, Soft, Non Tender, Non-Distended Extremities: No clubbing, No cyanosis, No edema, Capillary Refill Less than 3 Seconds Skin: No rashes, No breakdown Musculoskeletal: No Tenderness to Palpation of Joints or Extremities, Tenderness - Left hip Neurological: Cranial nerves II-XII grossly intact, Neuro grossly intact Psych/Mental Status: Normal Affect, Appropriate Microbiology Past 72 Hours 03/20/19 00:13 Urine Catheter - Catheter Urine Culture - Final Presumptive E. coli Laboratory Results 03/21/19 04:55: WBC 10.0, RBC 3.06 L, Hgb 9.2 L, Hct 29.6 L, MCV 96.7, MCH 30.1, MCHC 31.1 L, RDW Std Deviation 65.5 H, RDW Coeff of Myke 19.9 H, Plt Count 160, MPV 11.9, Immature Gran % (Auto) 0.900, Neut % (Auto) 73.5 H, Lymph % (Auto) 11.2 L, [place] % (Auto) 12.5 H, Eos % (Auto) 1.6, Baso % (Auto) 0.3, Absolute Neuts (auto) 7.4, Absolute Lymphs (auto) 1.12, Nucleated RBC % 0, Differential Comment SCANNED, Anisocytosis 1+ 03/21/19 04:55: Sodium 138, Potassium 4.9, Chloride 109 H, Carbon Dioxide 23.0, Anion Gap 6, BUN 46 H, Creatinine 2.28 H, Estim Creat Clear Calc 17.28, Est GFR (MDRD) Af Amer 27 L, Est GFR (MDRD) Non-Af 22 L, BUN/Creatinine Ratio 20.2 H, Glucose 109 H, Calcium 8.4 L Current Medications Acetaminophen (Tylenol) 650 mg PO Q6H PRN PRN PRN Reason: HEADACHE/FEVER (T>100F) Last Admin: 03/20/19 16:05 Dose: 650 mg Documented by: Atorvastatin Calcium (Lipitor) 20 mg PO QHS [facility] Last Admin: 03/20/19 22:12 Dose: 20 mg Documented by: Brimonidine Tartrate (Brimonidine 0.2% 5ml Bottle) 1 drop EACH EYE BID [facility] Last Admin: 03/21/19 09:15 Dose: 1 drop Documented by: Cholecalciferol (Vitamin D) 5,000 unit PO DAILY [facility] Last Admin: 03/21/19 09:18 Dose: 5,000 unit Documented by: Cyanocobalamin (Vitamin B12) 1,000 mcg PO DAILY [facility] Last Admin: 03/21/19 09:18 Dose: 1,000 mcg Documented by: Fluticasone Propionate (Flonase Nasal [place]) 2 spray NASAL DAILY [facility] Last Admin: 03/21/19 09:30 Dose: Not Given Documented by: Furosemide (Lasix) 40 mg IV DAILY [facility] Last Admin: 03/21/19 09:25 Dose: 40 mg Documented by: Heparin Sodium (Beef Lung) () 50 units IV UD PRN PRN Reason: Port-a-Cath (VAD)Heparin Flush Heparin Sodium (Porcine) (Heparin Na) 5,000 unit SC Q8 [facility] Last Admin: 03/21/19 06:27 Dose: 5,000 unit Documented by: Ceftriaxone Sodium 2 gm/ (Sodium Chloride) 50 mls @ 100 mls/hr IV QHS [facility] Last Infusion: 03/20/19 22:41 Dose: Infused Documented by: Sodium Chloride () 250 mls @ 15 mls/hr IV .[id number] PRN PRN Reason: Saline Flush Isosorbide Mononitrate (Imdur) 60 mg PO BID [facility] Last Admin: 03/21/19 09:17 Dose: 60 mg Documented by: Latanoprost (Xalatan Opthalmic) 1 drop EACH EYE QHS [facility] Last Admin: 03/20/19 22:13 Dose: 1 drop Documented by: Metoprolol Tartrate (Lopressor (Beta Brandyn)) 75 mg PO BID [facility] Last Admin: 03/21/19 09:16 Dose: 75 mg Documented by: Morphine Sulfate () 2 mg IV Q3H PRN PRN PRN Reason: Pain Score 6-10/10 Multivitamins/Minerals ([facility] With Minerals) [facility] Last Admin: 03/21/19 09:15 Dose: 1 tablet Documented by: Multivitamins/Minerals (Healthy Eyes) 1 capsule PO DAILY [facility] Last Admin: 03/21/19 09:16 Dose: 1 capsule Documented by: Nitroglycerin (Nitrostat) 0.4 mg SUBLINGUAL PRN PRN PRN Reason: Pain Score 1-10/10 Dzlon-2-Oauw Ethyl Esters (Lovaza) 1 gm PO DAILY [facility] Last Admin: 03/21/19 09:16 Dose: 1 gm Documented by: Oxycodone HCl (Oxyir) 5 mg PO Q4H PRN PRN PRN Reason: Pain Score 1-10/10 Last Admin: 03/21/19 07:18 Dose: 5 mg Documented by: Ranolazine (Ranexa) 1,000 mg PO BID [facility] Last Admin: 03/21/19 09:17 Dose: 1,000 mg Documented by: Sodium Chloride () 10 - 40 ml IV UD PRN PRN Reason: Port-a-Cath (VAD) Flush Last Admin: 03/21/19 09:25 Dose: 10 ml Documented by: Sodium Chloride (0.9% Nacl (Sterile) Posiflush) 10 - 40 ml IV UD PRN PRN Reason: Port access or dressing change Throat Lozenges (Cepacol Sore Throat Lozenge) 1 lozenge MUCOUS MEM Q2H PRN PRN PRN Reason: sore throat Last Admin: 03/20/19 09:52 Dose: 1 lozenge Documented by: Timolol Maleate (Timoptic) 1 drop EACH EYE BID JOSLYN Last Admin: 03/21/19 09:18 Dose: 1 drop Documented by: Medical Necessity - Tobacco Use Smoking Status: Never smoker Assessment/Plan All Active Problems (Last Reviewed 06/21/18 @ 14:11 by Nahid Hernandez MD) Scalp laceration (Acute) Recurrent falls (Acute) Closed fracture of left inferior pubic ramus (Acute) Injury of left shoulder and upper arm (Acute) Chest pain (Acute) History of coronary artery stent placement (Resolved 05/21/09) Elevated troponin (Acute) ARF (acute renal failure) (Resolved) Fracture of femoral neck, left (Resolved) Hypertensive emergency (Resolved) Pyelonephritis, acute (Resolved) 1. Mechanical fall prior to admission with debility related to left hip pain-x-rays without acute process. Stable bilateral hip arthroplasties. PT/OT. PRN pain regimen. SNF pending pre-CERT. 2. Acute E. coli UTI-transition from IV Rocephin to oral Keflex to complete course of antibiotics. 3. CAD status post stent-continue statin, isosorbide, metoprolol, Ranexa. Follows with Dr. Hernandez. 4. Chronic diastolic CHF-continue home Lasix regimen. 5. Hypertension-stable, continue amlodipine, isosorbide, metoprolol regimen. 6. Hyperlipidemia-continue statin. 7. CKD stage IV-at baseline. 8. Glaucoma-continue home ophthalmic regimen. 9. Rheumatoid arthritis/Sjogren's/peripheral neuropathy-no longer on regimen, stable. 10. Chronic normocytic anemia-at baseline, trend CBC. DVT prophylaxis-heparin subcu This patient was seen by MICHELLE He under the supervision of Dr. Hillman.
[2019-03-21] MEDS: Polyethylene Glycol 3350 17 GM PACKET PO (10:52)
--- NOTE | 2019-03-21 12:20 | CASEMGMT ---
Addendum entered by Krystyna Dong 03/21/19 16:15: VINICIO completed PAS/RR in [facility]ENS and placed on pt's chart with green sheet and transportation form in the event pre-cert is obtained. Original Note: Social work Note SW updated physician that pt is still [facility] pending pre-cert and this worker would be surprised if pre-cert is obtained today as [employer] has been taking 3 days to get back to facilities for pre-cert. VINICIO faxed updated clinicals to [facility] Mc[facility]. Plan: [facility] pending pre-cert Krystyna Dong BIT SHAVER, MICRO COMPUTER SPECIALIST
[2019-03-21] MEDS: Acetaminophen 500 MG Tablet 1000 MG PO ×2 (14:01→21:58)
[2019-03-21] MEDS: Atorvastatin Calcium 20 MG Tablet PO (21:57)
[2019-03-21] MEDS: Cephalexin 250 MG Capsule PO (21:58)
[2019-03-21] MEDS: Latanoprost 0.005% 1 Bottle 1 DRP EACH EYE (22:03)
[2019-03-22] VITALS (11 sets, daily range): BP systolic 114–135; BP diastolic 51–69; PULSE 60–65; RESP 16–18; TEMP 36.6–36.9; O2SAT 87–96
[2019-03-22] MEDS: 0.9% Saline Lock 10 ML Syringe IV ×2 (03:44→17:04)
[2019-03-22] MEDS: Cephalexin 250 MG Capsule PO ×3 (05:06→21:41)
[2019-03-22] MEDS: Acetaminophen 500 MG Tablet 1000 MG PO ×3 (05:06→21:45)
[2019-03-22 05:31] LABS: Absolute Lymphocyte Count 0.97 X10^3/uL (0.83-4.51); Absolute Neutrophil Count 8.7 X10^3/uL (2.0-7.7); Basophil# 0.02 X10^3/uL; Basophil% 0.2 % (0-1); Eosinophil# 0.12 X10^3/uL; Hematocrit 28.9 % (37-47); Hemoglobin 8.9 g/dL (12.0-15.0); Lymphocyte # 0.97 X10^3/ul (4.0); Lymphocyte % 8.5 % (19-41); Mean Corp Hgb Conc 30.8 g/dL (32-36); Mean Corpuscular Volume 97.3 fL (81-99); Monocyte# 1.54 X10^3/uL; Monocyte% 13.4 % (0-10); NRBC Flagged by Analyzer 0.3 % (0-5); Neutrophil # 8.68 X10^3/uL (2.7-7.7); Neutrophil % 75.9 % (47-70); POSITIVE DIFFERENTIAL YES; POSITIVE MORPHOLOGY YES; Platelet Count 163 K/mm3 (150-450); RBC Distribution Width CV 20.7 % (11.6-14.6); RBC Distribution Width SD 69.2 fl (35.1-43.9); Red Blood Count 2.97 M/mm3 (4.2-5.4); White Blood Count 11.5 K/mm3 (4.4-11.0)
[2019-03-22 05:38] LABS: Differential Indicated SCAN CRITERIA MET
[2019-03-22 05:48] LABS: Anion Gap 6 (5-15); BUN 52 mg/dL (7-18); BUN/Creat Ratio 20.8 RATIO (10-20); Chloride 106 mmol/L (98-107); EST Glomerular Filtration Rate 20 mL/min (>60); Est Glom Filt Rate - Afr Amer 24 mL/min (>60); Estimated Creatinine Clearance 15.76 ml/min; Glucose 122 mg/dL (74-106); Sodium Level 136 mmol/L (136-145)
[2019-03-22 06:05] LABS: Anisocytosis 1+; Differential Comment SCANNED; Polychromasia 1+
[2019-03-22] MEDS: Timolol 0.5% 5ML OPTH.BTL 1 DRP EACH EYE ×2 (08:39→21:45)
[2019-03-22] MEDS: Heparin Injection (Vial) 5,000 UNIT/ML VIAL 5000 UNIT SC ×2 (08:40→21:41)
[2019-03-22] MEDS: BRIMONIDINE 0.2% 5ML BOTTLE 1 DRP EACH EYE ×2 (08:40→21:41)
[2019-03-22] MEDS: Metoprolol Tartrate 25 MG Tablet 75 MG PO ×2 (08:41→21:43)
[2019-03-22] MEDS: Ranolazine 500 MG Tablet 1000 MG PO ×2 (08:41→21:42)
[2019-03-22] MEDS: Multivitamins,Ther W-Minerals Tablet 1 TABLET PO (08:42)
[2019-03-22] MEDS: Cyanocobalamin 500 MCG Tablet 1000 MCG PO (08:42)
[2019-03-22] MEDS: Isosorbide Mononitrate 60 MG Tablet PO ×2 (08:43→21:42)
[2019-03-22] MEDS: Omega-3 Acid Ethyl Esters 1 GM Capsule PO (08:43)
[2019-03-22] MEDS: Multivitamin (Healthy Eyes) Capsule 1 CAP PO (08:43)
[2019-03-22] MEDS: Furosemide 40 MG/4 ML Vial IV (08:44)
[2019-03-22] MEDS: Polyethylene Glycol 3350 17 GM PACKET PO (08:44)
--- NOTE | 2019-03-22 09:56 | PCM.PROGNOTE ---
<Carol Perry - Last Filed: 03/22/19 10:07> Patient Problems: Active and Suspected Problems (Last Reviewed 06/21/18 @ 14:11 by Nahid Hernandez MD) Scalp laceration (Acute) Recurrent falls (Acute) Closed fracture of left inferior pubic ramus (Acute) Injury of left shoulder and upper arm (Acute) Elevated troponin (Acute) Subjective: Patient seen and examined. Reports pain is tolerable at rest however having increased pain with any ambulation. Denies other current complaints. Awaiting SNF pre-cert. - Physical Exam Vitals/I&O's: Vital Signs Temp Pulse Resp BP Pulse Ox 97.9 F 60 18 122/62 H 94 03/22/19 08:34 03/22/19 08:41 03/22/19 08:34 03/22/19 08:34 03/22/19 08:34 Oxygen Flow Rate (L/min) 1 Oxygen Delivery Method Room Air Weight: 120 lb 9.486 oz Body Mass Index (BMI) 20.7 Intake and Output for Last 24 Hours 03/20/19 03/21/19 03/22/19 23:59 23:59 23:59 Intake Total 800 / 1000 1200 / 1200 150 / 150 Output Total 200 / 200 300 / 300 100 / 100 Balance 600 / 800 900 / 900 50 / 50 General: Alert, Oriented x3, Cooperative HEENT: Atraumatic, PERRLA, EOMI, Normocephalic Neck: Supple, No JVD, Negative Carotid Bruits Lungs: Clear to auscultation, Normal air movement Cardiovascular: Regular rate, Regular Rhythm, Normal S1, Normal S2, No murmurs Abdomen: Bowel Sounds Present, Soft, Non Tender, Non-Distended Extremities: No clubbing, No cyanosis, No edema Skin: No rashes, No breakdown Musculoskeletal: Tenderness - Left hip Neurological: Cranial nerves II-XII grossly intact, Neuro grossly intact Psych/Mental Status: Normal Affect, Appropriate Microbiology Past 72 Hours 03/20/19 00:13 Urine Catheter - Catheter Urine Culture - Final Presumptive E. coli Laboratory Results 03/22/19 05:25: WBC 11.5 H, RBC 2.97 L, Hgb 8.9 L, Hct 28.9 L, MCV 97.3, MCH 30.0, MCHC 30.8 L, RDW Std Deviation 69.2 H, RDW Coeff of Myke 20.7 H, Plt Count 163, MPV 12.0, Immature Gran % (Auto) 1.000 H, Neut % (Auto) 75.9 H, Lymph % (Auto) 8.5 L, Williamson % (Auto) 13.4 H, Eos % (Auto) 1.0, Baso % (Auto) 0.2, Absolute Neuts (auto) 8.7 H, Absolute Lymphs (auto) 0.97, Nucleated RBC % 0.3, Differential Comment SCANNED, Polychromasia 1+, Anisocytosis 1+ 03/22/19 05:25: Sodium 136, Potassium 5.0, Chloride 106, Carbon Dioxide 24.0, Anion Gap 6, BUN 52 H, Creatinine 2.50 H, Estim Creat Clear Calc 15.76, Est GFR (MDRD) Af Amer 24 L, Est GFR (MDRD) Non-Af 20 L, BUN/Creatinine Ratio 20.8 H, Glucose 122 H, Calcium 8.0 L Current Medications Acetaminophen (Tylenol) 1,000 mg PO Q8H [facility] Last Admin: 03/22/19 05:06 Dose: 1,000 mg Documented by: Atorvastatin Calcium (Lipitor) 20 mg PO QHS [facility] Last Admin: 03/21/19 21:57 Dose: 20 mg Documented by: Brimonidine Tartrate (Brimonidine 0.2% 5ml Bottle) 1 drop EACH EYE BID [facility] Last Admin: 03/22/19 08:40 Dose: 1 drop Documented by: Cephalexin (Keflex) 250 mg PO Q8 [facility] Stop: 03/27/19 22:01 Last Admin: 03/22/19 05:06 Dose: 250 mg Documented by: Cholecalciferol (Vitamin D) 5,000 unit PO DAILY [facility] Last Admin: 03/22/19 08:40 Dose: 5,000 unit Documented by: Cyanocobalamin (Vitamin B12) 1,000 mcg PO DAILY [facility] Last Admin: 03/22/19 08:42 Dose: 1,000 mcg Documented by: Docusate Sodium (Colace) 100 mg PO BID PRN PRN PRN Reason: Constipation Fluticasone Propionate (Flonase Nasal [place]) 2 spray NASAL DAILY [facility] Last Admin: 03/22/19 08:38 Dose: Not Given Documented by: Furosemide (Lasix) 40 mg IV DAILY [facility] Last Admin: 03/22/19 08:44 Dose: 40 mg Documented by: Heparin Sodium (Beef Lung) () 50 units IV UD PRN PRN Reason: Port-a-Cath (VAD)Heparin Flush Heparin Sodium (Porcine) (Heparin Na) 5,000 unit SC Q12H [facility] Last Admin: 03/22/19 08:40 Dose: 5,000 unit Documented by: Sodium Chloride () 250 mls @ 15 mls/hr IV .[id number] PRN PRN Reason: Saline Flush Isosorbide Mononitrate (Imdur) 60 mg PO BID [facility] Last Admin: 03/22/19 08:43 Dose: 60 mg Documented by: Latanoprost (Xalatan Opthalmic) 1 drop EACH EYE QHS [facility] Last Admin: 03/21/19 22:03 Dose: 1 drop Documented by: Metoprolol Tartrate (Lopressor (Beta Brandyn)) 75 mg PO BID [facility] Last Admin: 03/22/19 08:41 Dose: 75 mg Documented by: Morphine Sulfate () 2 mg IV Q3H PRN PRN PRN Reason: Pain Score 6-10/10 Multivitamins/Minerals (Multivitamin With Minerals) 1 tablet PO BIDCM [facility] Last Admin: 03/22/19 08:42 Dose: 1 tablet Documented by: Multivitamins/Minerals (Healthy Eyes) 1 capsule PO DAILY [facility] Last Admin: 03/22/19 08:43 Dose: 1 capsule Documented by: Nitroglycerin (Nitrostat) 0.4 mg SUBLINGUAL PRN PRN PRN Reason: Pain Score 1-10/10 Kfmox-0-Ddoe Ethyl Esters (Lovaza) 1 gm PO DAILY [facility] Last Admin: 03/22/19 08:43 Dose: 1 gm Documented by: Oxycodone HCl (Oxyir) 5 - 10 mg PO Q4H PRN PRN PRN Reason: Pain Score 1-10/10 Last Admin: 03/21/19 16:35 Dose: 10 mg Documented by: Polyethylene Glycol (Miralax) 17 gm PO DAILY [facility] Last Admin: 03/22/19 08:44 Dose: 17 gm Documented by: Ranolazine (Ranexa) 1,000 mg PO BID [facility] Last Admin: 03/22/19 08:41 Dose: 1,000 mg Documented by: Sodium Chloride () 10 - 40 ml IV UD PRN PRN Reason: Port-a-Cath (VAD) Flush Last Admin: 03/22/19 03:44 Dose: 30 ml Documented by: Sodium Chloride (0.9% Nacl (Sterile) Posiflush) 10 - 40 ml IV UD PRN PRN Reason: Port access or dressing change Throat Lozenges (Cepacol Sore Throat Lozenge) 1 lozenge MUCOUS MEM Q2H PRN PRN PRN Reason: sore throat Last Admin: 03/20/19 09:52 Dose: 1 lozenge Documented by: Timolol Maleate (Timoptic) 1 drop EACH EYE BID [facility] Last Admin: 03/22/19 08:39 Dose: 1 drop Documented by: Medical Necessity - Tobacco Use Smoking Status: Never smoker Assessment/Plan All Active Problems (Last Reviewed 06/21/18 @ 14:11 by Nahid Hernandez MD) Scalp laceration (Acute) Recurrent falls (Acute) Closed fracture of left inferior pubic ramus (Acute) Injury of left shoulder and upper arm (Acute) Chest pain (Acute) History of coronary artery stent placement (Resolved 05/21/09) Elevated troponin (Acute) ARF (acute renal failure) (Resolved) Fracture of femoral neck, left (Resolved) Hypertensive emergency (Resolved) Pyelonephritis, acute (Resolved) 1. Mechanical fall prior to admission with debility related to left hip pain and suspected closed fracture left inferior pubic ramus-x-ray of left hip and pelvis shows no fracture involving the pelvis or left hip, bilateral hip arthroplasty with normal alignment, minimal irregularity left inferior pubic ramus. PT/OT. PRN pain regimen. SNF pending pre-CERT. 2. Acute E. coli UTI-transitioned from IV Rocephin to oral Keflex to complete course of antibiotics. 3. CAD status post stent-continue statin, isosorbide, metoprolol, Ranexa. Follows with Dr. Hernandez. 4. Chronic diastolic CHF-continue home Lasix regimen. 5. Hypertension-stable, continue amlodipine, isosorbide, metoprolol regimen. 6. Hyperlipidemia-continue statin. 7. CKD stage IV-at baseline. 8. Glaucoma-continue home ophthalmic regimen. 9. Rheumatoid arthritis/Sjogren's/peripheral neuropathy-no longer on regimen, stable. 10. Chronic normocytic anemia-at baseline, trend CBC. DVT prophylaxis-heparin subcu This patient was seen by MICHELLE He under the supervision of Dr. Wiseman. <Sanjay Wiseman - Last Filed: 03/22/19 12:24> Subjective: Patient is still complaining of pain in the left hip and left pelvic region even going to bathroom. No pain at rest. - Physical Exam Vitals/I&O's: Vital Signs Temp Pulse Resp BP Pulse Ox 97.9 F 60 18 122/62 H 94 03/22/19 08:34 03/22/19 08:41 03/22/19 08:34 03/22/19 08:34 03/22/19 08:34 Oxygen Flow Rate (L/min) 1 Oxygen Delivery Method Room Air Weight: 120 lb 9.486 oz Body Mass Index (BMI) 20.7 Intake and Output for Last 24 Hours 03/20/19 03/21/19 03/22/19 23:59 23:59 23:59 Intake Total 800 / 1000 1200 / 1200 510 / 510 Output Total 200 / 200 300 / 300 100 / 100 Balance 600 / 800 900 / 900 410 / 410 General: Alert, Oriented x3, Cooperative HEENT: Atraumatic, PERRLA, EOMI, Normocephalic Neck: Supple, No JVD, Negative Carotid Bruits Lungs: Clear to auscultation, Normal air movement, No rhonchi, No wheeze, Diminished Cardiovascular: Regular rate, No murmurs Abdomen: Bowel Sounds Present, Soft, Non Tender, Non-Distended Extremities: No edema, Capillary Refill Less than 3 Seconds Skin: No rashes, No breakdown Musculoskeletal: Arthritic Changes, Tenderness - Left hip Mild tenderness to left inferior pubis and left hip Neurological: Cranial nerves II-XII grossly intact Psych/Mental Status: Normal Affect, Appropriate Microbiology Past 72 Hours 03/20/19 00:13 Urine Catheter - Catheter Urine Culture - Final Presumptive E. coli Laboratory Results 03/22/19 05:25: WBC 11.5 H, RBC 2.97 L, Hgb 8.9 L, Hct 28.9 L, MCV 97.3, MCH 30.0, MCHC 30.8 L, RDW Std Deviation 69.2 H, RDW Coeff of Myke 20.7 H, Plt Count 163, MPV 12.0, Immature Gran % (Auto) 1.000 H, Neut % (Auto) 75.9 H, Lymph % (Auto) 8.5 L, Williamson % (Auto) 13.4 H, Eos % (Auto) 1.0, Baso % (Auto) 0.2, Absolute Neuts (auto) 8.7 H, Absolute Lymphs (auto) 0.97, Nucleated RBC % 0.3, Differential Comment SCANNED, Polychromasia 1+, Anisocytosis 1+ 03/22/19 05:25: Sodium 136, Potassium 5.0, Chloride 106, Carbon Dioxide 24.0, Anion Gap 6, BUN 52 H, Creatinine 2.50 H, Estim Creat Clear Calc 15.76, Est GFR (MDRD) Af Amer 24 L, Est GFR (MDRD) Non-Af 20 L, BUN/Creatinine Ratio 20.8 H, Glucose 122 H, Calcium 8.0 L Current Medications Acetaminophen (Tylenol) 1,000 mg PO Q8H [facility] Last Admin: 03/22/19 05:06 Dose: 1,000 mg Documented by: Atorvastatin Calcium (Lipitor) 20 mg PO QHS [facility] Last Admin: 03/21/19 21:57 Dose: 20 mg Documented by: Brimonidine Tartrate (Brimonidine 0.2% 5ml Bottle) 1 drop EACH EYE BID [facility] Last Admin: 03/22/19 08:40 Dose: 1 drop Documented by: Cephalexin (Keflex) 250 mg PO Q8 [facility] Stop: 03/27/19 22:01 Last Admin: 03/22/19 05:06 Dose: 250 mg Documented by: Cholecalciferol (Vitamin D) 5,000 unit PO DAILY [facility] Last Admin: 03/22/19 08:40 Dose: 5,000 unit Documented by: Cyanocobalamin (Vitamin B12) 1,000 mcg PO DAILY [facility] Last Admin: 03/22/19 08:42 Dose: 1,000 mcg Documented by: Docusate Sodium (Colace) 100 mg PO BID PRN PRN PRN Reason: Constipation Fluticasone Propionate (Flonase Nasal [place]) 2 spray NASAL DAILY [facility] Last Admin: 03/22/19 08:38 Dose: Not Given Documented by: Heparin Sodium (Beef Lung) () 50 units IV UD PRN PRN Reason: Port-a-Cath (VAD)Heparin Flush Heparin Sodium (Porcine) (Heparin Na) 5,000 unit SC Q12H [facility] Last Admin: 03/22/19 08:40 Dose: 5,000 unit Documented by: Sodium Chloride () 250 mls @ 15 mls/hr IV .[id number] PRN PRN Reason: Saline Flush Isosorbide Mononitrate (Imdur) 60 mg PO BID [facility] Last Admin: 03/22/19 08:43 Dose: 60 mg Documented by: Latanoprost (Xalatan Opthalmic) 1 drop EACH EYE QHS [facility] Last Admin: 03/21/19 22:03 Dose: 1 drop Documented by: Metoprolol Tartrate (Lopressor (Beta Brandyn)) 75 mg PO BID [facility] Last Admin: 03/22/19 08:41 Dose: 75 mg Documented by: Morphine Sulfate () 2 mg IV Q3H PRN PRN PRN Reason: Pain Score 6-10/10 [facility]it[facility] Admin: 03/22/19 08:42 Dose: 1 tablet Documented by: Multivitamins/Minerals (Healthy Eyes) 1 capsule PO DAILY [facility] Last Admin: 03/22/19 08:43 Dose: 1 capsule Documented by: Nitroglycerin (Nitrostat) 0.4 mg SUBLINGUAL PRN PRN PRN Reason: Pain Score 1-10/10 Jmixh-0-Idig Ethyl Esters (Lovaza) 1 gm PO DAILY [facility] Last Admin: 03/22/19 08:43 Dose: 1 gm Documented by: Oxycodone HCl (Oxyir) 5 - 10 mg PO Q4H PRN PRN PRN Reason: Pain Score 1-10/10 Last Admin: 03/21/19 16:35 Dose: 10 mg Documented by: Polyethylene Glycol (Miralax) 17 gm PO DAILY [facility] Last Admin: 03/22/19 08:44 Dose: 17 gm Documented by: Ranolazine (Ranexa) 1,000 mg PO BID [facility] Last Admin: 03/22/19 08:41 Dose: 1,000 mg Documented by: Sodium Chloride () 10 - 40 ml IV UD PRN PRN Reason: Port-a-Cath (VAD) Flush Last Admin: 03/22/19 03:44 Dose: 30 ml Documented by: Sodium Chloride (0.9% Nacl (Sterile) Posiflush) 10 - 40 ml IV UD PRN PRN Reason: Port access or dressing change Throat Lozenges (Cepacol Sore Throat Lozenge) 1 lozenge MUCOUS MEM Q2H PRN PRN PRN Reason: sore throat Last Admin: 03/20/19 09:52 Dose: 1 lozenge Documented by: Timolol Maleate (Timoptic) 1 drop EACH EYE BID [facility] Last Admin: 03/22/19 08:39 Dose: 1 drop Documented by: Assessment/Plan This patient was seen in conjunction with Carol COUCH. I have independently interviewed and examined the patient and reviewed pertinent history, examination findings, laboratory and plan of management. I have reviewed the note and agree with the documented findings with the few additional points. In brief, patient is admitted for mechanical fall prior to admission with debility. She fell on the head and had his laceration which was repaired in ED. CT scan did not show any acute change. Hip x-ray shows no fracture involving the pelvis or left hip. Total bilateral hip arthroplasty normal alignment. Minimal irregularity at left inferior pubic ramus of doubtful clinical significance. Shoulder x-ray shows old transverse fracture proximal to the humeral metaphysis with impaction. Patient has acute E. coli UTI: IV Rocephin. Changed to oral Keflex. Other comorbidities as mentioned above. Is stable. Plan to discharge to SNF I have discussed my assessment with Carol COUCH and orders have been reviewed. Clinical Impression(s) from Imaging Studies Brain CT 03/19/19 22:41 IMPRESSION: No acute intracranial abnormality. Normal brain for the patient's age. Posterior parietal scalp hematoma not significantly changed. Hip/Pelvis X-Ray 03/19/19 22:43 IMPRESSION: No fracture involving the pelvis or left hip. Total bilateral hip arthroplasties in normal alignment. Minimal irregularity left inferior pubic ramus of doubtful clinical significance. Shoulder X-Ray 03/19/19 22:43 IMPRESSION: Transverse fracture proximal humeral metaphysis with impaction which may represent an old injury. A fracture of the humeral head and neck was present on the prior shoulder series of 2016. If there is a high clinical suspicion of an acute fracture correlate with CT. Code Visit Inpatient E&M: 71561 Subs Hosp L2
[2019-03-22] MEDS: Ondansetron 4 MG/2 ML Vial IV (17:02)
[2019-03-22] MEDS: Latanoprost 0.005% 1 Bottle 1 DRP EACH EYE (21:45)
[2019-03-22] MEDS: Atorvastatin Calcium 20 MG Tablet PO (21:47)
[2019-03-23] VITALS (7 sets, daily range): BP systolic 128–144; BP diastolic 62–69; PULSE 58–68; RESP 16–18; TEMP 36.6–36.9; O2SAT 90–95
[2019-03-23 05:26] LABS: Hematocrit 29.1 % (37-47); Mean Corp Hgb Conc 30.9 g/dL (32-36); Mean Corpuscular Hgb 30.3 pg (27.0-32.0); Mean Platelet Vol. 12.2 fl (6.2-12.0); POSITIVE MORPHOLOGY YES; Platelet Count 169 K/mm3 (150-450); RBC Distribution Width CV 21.6 % (11.6-14.6); RBC Distribution Width SD 70.4 fl (35.1-43.9); Red Blood Count 2.97 M/mm3 (4.2-5.4); White Blood Count 11.6 K/mm3 (4.4-11.0)
[2019-03-23] MEDS: Acetaminophen 500 MG Tablet 1000 MG PO ×2 (05:49→14:31)
[2019-03-23] MEDS: Cephalexin 250 MG Capsule PO ×3 (05:49→21:53)
[2019-03-23] MEDS: 0.9% Saline Lock 10 ML Syringe IV ×3 (05:50→20:36)
[2019-03-23 05:54] LABS: Anion Gap 7 (5-15); BUN 55 mg/dL (7-18); Calcium,Total 8.2 mg/dL (8.5-10.1); Chloride 109 mmol/L (98-107); Creatinine, Serum 2.62 mg/dL (0.55-1.02); EST Glomerular Filtration Rate 19 mL/min (>60); Est Glom Filt Rate - Afr Amer 23 mL/min (>60); Estimated Creatinine Clearance 15.03 ml/min; Glucose 107 mg/dL (74-106); Sodium Level 139 mmol/L (136-145)
[2019-03-23 05:56] LABS: Scan Indicated on CBC? Y/N YES- FLAGS NOTED
[2019-03-23 06:14] LABS: Differential Comment SCANNED
[2019-03-23] MEDS: Ondansetron 4 MG/2 ML Vial IV ×2 (09:15→20:36)
[2019-03-23] MEDS: 0.9% Normal Saline 1,000 ML 100 ML IV (09:17)
[2019-03-23] MEDS: Ranolazine 500 MG Tablet 1000 MG PO ×2 (10:55→21:55)
[2019-03-23] MEDS: Isosorbide Mononitrate 60 MG Tablet PO ×2 (10:55→21:53)
[2019-03-23] MEDS: BRIMONIDINE 0.2% 5ML BOTTLE 1 DRP EACH EYE ×2 (10:56→21:52)
[2019-03-23] MEDS: Timolol 0.5% 5ML OPTH.BTL 1 DRP EACH EYE ×2 (10:56→21:56)
[2019-03-23] MEDS: Heparin Injection (Vial) 5,000 UNIT/ML VIAL 5000 UNIT SC ×2 (10:57→21:53)
--- NOTE | 2019-03-23 12:35 | PN_ITS ---
<Carol Perry - Last Filed: 03/23/19 12:39> Patient Problems: Active and Suspected Problems (Last Reviewed 06/21/18 @ 14:11 by Nahid Hernandez MD) Scalp laceration (Acute) Recurrent falls (Acute) Closed fracture of left inferior pubic ramus (Acute) Injury of left shoulder and upper arm (Acute) Elevated troponin (Acute) Subjective: Patient seen and examined. Complains of lightheadedness when sitting at edge of bed working with therapy. Complains of dry mouth. Initiated gentle IV fluids. Patient reports intermittent nausea without emesis last evening, has since resolved. - Physical Exam Vitals/I&O's: Vital Signs Temp Pulse Resp BP Pulse Ox 98.0 F 58 L 16 128/62 H 92 03/23/19 09:05 03/23/19 10:54 03/23/19 09:05 03/23/19 09:05 03/23/19 09:05 Oxygen Flow Rate (L/min) 1 Oxygen Delivery Method Nasal Cannula Weight: 120 lb 9.486 oz Body Mass Index (BMI) 20.7 Intake and Output for Last 24 Hours 03/21/19 03/22/19 03/23/19 23:59 23:59 23:59 Intake Total 1200 / 1200 750 / 750 Output Total 300 / 300 100 / 300 200 / 200 Balance 900 / 900 650 / 450 -200 / -200 General: Alert, Oriented x3, Cooperative HEENT: Atraumatic, PERRLA, EOMI, Normocephalic Oral: Dry Mucosa Neck: Supple, No JVD, Negative Carotid Bruits Lungs: Clear to auscultation, Normal air movement Cardiovascular: Regular rate, Regular Rhythm, Normal S1, Normal S2, No murmurs Abdomen: Bowel Sounds Present, Soft, Non Tender, Non-Distended Extremities: No clubbing, No cyanosis, No edema, Capillary Refill Less than 3 Seconds Skin: No rashes, No breakdown Musculoskeletal: No Tenderness to Palpation of Joints or Extremities, Tenderness - Left hip/pelvis Neurological: Cranial nerves II-XII grossly intact, Neuro grossly intact Psych/Mental Status: Normal Affect, Appropriate Microbiology Past 72 Hours 03/20/19 00:13 Urine Catheter - Catheter Urine Culture - Final Presumptive E. coli Laboratory Results 03/23/19 05:15: Sodium 139, Potassium 5.0, Chloride 109 H, Carbon Dioxide 23.0, Anion Gap 7, BUN 55 H, Creatinine 2.62 H, Estim Creat Clear Calc 15.03, Est GFR (MDRD) Af Amer 23 L, Est GFR (MDRD) Non-Af 19 L, BUN/Creatinine Ratio 21.0 H, Glucose 107 H, Calcium 8.2 L 03/23/19 05:15: WBC 11.6 H, RBC 2.97 L, Hgb 9.0 L, Hct 29.1 L, MCV 98.0, MCH 30.3, MCHC 30.9 L, RDW Std Deviation 70.4 H, RDW Coeff of Myke 21.6 H, Plt Count 169, MPV 12.2 H, Differential Comment SCANNED Current Medications Acetaminophen (Tylenol) 1,000 mg PO Q8H [facility] Last Admin: 03/23/19 05:49 Dose: 1,000 mg Documented by: Atorvastatin Calcium (Lipitor) 20 mg PO QHS [facility] Last Admin: 03/22/19 21:47 Dose: 20 mg Documented by: Brimonidine Tartrate (Brimonidine 0.2% 5ml Bottle) 1 drop EACH EYE BID [facility] Last Admin: 03/23/19 10:56 Dose: 1 drop Documented by: Cephalexin (Keflex) 250 mg PO Q8 [facility] Stop: 03/27/19 22:01 Last Admin: 03/23/19 05:49 Dose: 250 mg Documented by: Cholecalciferol (Vitamin D) 5,000 unit PO DAILY [facility] Last Admin: 03/23/19 10:52 Dose: Not Given Documented by: Cyanocobalamin (Vitamin B12) 1,000 mcg PO DAILY [facility] Last Admin: 03/23/19 10:52 Dose: Not Given Documented by: Docusate Sodium (Colace) 100 mg PO BID PRN PRN PRN Reason: Constipation Fluticasone Propionate (Flonase Nasal [place]) 2 spray NASAL DAILY [facility] Last Admin: 03/23/19 10:57 Dose: Not Given Documented by: Heparin Sodium (Beef Lung) () 50 units IV UD PRN PRN Reason: Port-a-Cath (VAD)Heparin Flush Heparin Sodium (Porcine) (Heparin Na) 5,000 unit SC Q12H [facility] Last Admin: 03/23/19 10:57 Dose: 5,000 unit Documented by: Sodium Chloride () 250 mls @ 15 mls/hr IV .[id number] PRN PRN Reason: Saline Flush Sodium Chloride () 1,000 mls @ 100 mls/hr IV .Q10H [facility] Stop: 03/23/19 18:34 Last Admin: 03/23/19 09:17 Dose: 100 mls/hr Documented by: Isosorbide Mononitrate (Imdur) 60 mg PO BID [facility] Last Admin: 03/23/19 10:55 Dose: 60 mg Documented by: Latanoprost (Xalatan Opthalmic) 1 drop EACH EYE QHS [facility] Last Admin: 03/22/19 21:45 Dose: 1 drop Documented by: Metoprolol Tartrate (Lopressor (Beta Brandyn)) 75 mg PO BID [facility] Last Admin: 03/23/19 10:54 Dose: Not Given Documented by: Morphine Sulfate () 2 mg IV Q3H PRN PRN PRN Reason: Pain Score 6-10/10 [facility]iner[facility] Last Admin: 03/23/19 10:52 Dose: Not Given Documented by: Multivitamins/Minerals (Healthy Eyes) 1 capsule PO DAILY [facility] Last Admin: 03/23/19 10:52 Dose: Not Given Documented by: Nitroglycerin (Nitrostat) 0.4 mg SUBLINGUAL PRN PRN PRN Reason: Pain Score 1-10/10 Iwdic-0-Usvo Ethyl Esters (Lovaza) 1 gm PO DAILY [facility] Last Admin: 03/23/19 10:52 Dose: Not Given Documented by: Ondansetron HCl (Zofran) 4 mg IV Q6H PRN PRN PRN Reason: NAUSEA Last Admin: 03/23/19 09:15 Dose: 4 mg Documented by: Oxycodone HCl (Oxyir) 5 - 10 mg PO Q4H PRN PRN PRN Reason: Pain Score 1-10/10 Last Admin: 03/21/19 16:35 Dose: 10 mg Documented by: Polyethylene Glycol (Miralax) 17 gm PO DAILY [facility] Last Admin: 03/23/19 10:55 Dose: Not Given Documented by: Ranolazine (Ranexa) 1,000 mg PO BID [facility] Last Admin: 03/23/19 10:55 Dose: 1,000 mg Documented by: Sodium Chloride () 10 - 40 ml IV UD PRN PRN Reason: Port-a-Cath (VAD) Flush Last Admin: 03/23/19 09:15 Dose: 10 ml Documented by: Sodium Chloride (0.9% Nacl (Sterile) Posiflush) 10 - 40 ml IV UD PRN PRN Reason: Port access or dressing change Throat Lozenges (Cepacol Sore Throat Lozenge) 1 lozenge MUCOUS MEM Q2H PRN PRN PRN Reason: sore throat Last Admin: 03/20/19 09:52 Dose: 1 lozenge Documented by: Timolol Maleate (Timoptic) 1 drop EACH EYE BID [facility] Last Admin: 03/23/19 10:56 Dose: 1 drop Documented by: Medical Necessity - Tobacco Use Smoking Status: Never smoker Assessment/Plan All Active Problems (Last Reviewed 06/21/18 @ 14:11 by Nahid Hernandez MD) Scalp laceration (Acute) Recurrent falls (Acute) Closed fracture of left inferior pubic ramus (Acute) Injury of left shoulder and upper arm (Acute) Chest pain (Acute) History of coronary artery stent placement (Resolved 05/21/09) Elevated troponin (Acute) ARF (acute renal failure) (Resolved) Fracture of femoral neck, left (Resolved) Hypertensive emergency (Resolved) Pyelonephritis, acute (Resolved) 1. Mechanical fall prior to admission with debility related to left hip pain and suspected closed fracture left inferior pubic ramus-x-ray of left hip and pelvis shows no fracture involving the pelvis or left hip, bilateral hip arthroplasty with normal alignment, minimal irregularity left inferior pubic ramus. PT/OT. PRN pain regimen. SNF pending pre-CERT. 2. Acute E. coli UTI-transitioned from IV Rocephin to oral Keflex to complete course of antibiotics. 3. SYLVIA on CKD stage IV-Lasix on hold. Initiated on gentle IV fluids. Repeat BMP in a.m. 4. CAD status post stent-continue statin, isosorbide, metoprolol, Ranexa. Follows with Dr. Hernandez. 5. Chronic diastolic CHF-continue home Lasix regimen. 6. Hypertension-stable, continue amlodipine, isosorbide, metoprolol regimen. 7. Hyperlipidemia-continue statin. 8. Glaucoma-continue home ophthalmic regimen. 9. Rheumatoid arthritis/Sjogren's/peripheral neuropathy-no longer on regimen, stable. 10. Chronic normocytic anemia-at baseline, trend CBC. DVT prophylaxis-heparin subcu Discharge planning: SNF pending pre-CERT. This patient was seen by MICHELLE He under the supervision of Dr. Rachel and. <Sanjay Wiseman - Last Filed: 03/23/19 14:58> Subjective: Patient is still gets pain on walking. Has constipation and has not moved bowel since Sunday. - Physical Exam Vitals/I&O's: Vital Signs Temp Pulse Resp BP Pulse Ox 98.0 F 58 L 16 128/62 H 92 03/23/19 09:05 03/23/19 10:54 03/23/19 09:05 03/23/19 09:05 03/23/19 09:05 Oxygen Flow Rate (L/min) 1 Oxygen Delivery Method Nasal Cannula Weight: 120 lb 9.486 oz Body Mass Index (BMI) 20.7 Intake and Output for Last 24 Hours 03/21/19 03/22/19 03/23/19 23:59 23:59 23:59 Intake Total 1200 / 1200 750 / 750 120 / 120 Output Total 300 / 300 100 / 300 550 / 550 Balance 900 / 900 650 / 450 -430 / -430 General: Alert, Oriented x3, Cooperative HEENT: Atraumatic, PERRLA, EOMI, Normocephalic Neck: Supple, No JVD, Negative Carotid Bruits Lungs: Clear to auscultation, Normal air movement, No rhonchi, No wheeze, No rales Cardiovascular: Regular rate, Regular Rhythm, Normal S1, Normal S2, No murmurs Abdomen: Bowel Sounds Present, Soft, Non Tender, Non-Distended, No Hepato- splenomegaly Extremities: No edema, Capillary Refill Less than 3 Seconds Skin: No rashes, No breakdown Musculoskeletal: Tenderness Neurological: Cranial nerves II-XII grossly intact, Deep Tendon Reflexes 2+/4 and Symmetrical, Neuro grossly intact Psych/Mental Status: Normal Affect, Appropriate Microbiology Past 72 Hours 03/20/19 00:13 Urine Catheter - Catheter Urine Culture - Final Presumptive E. coli Laboratory Results 03/23/19 05:15: Sodium 139, Potassium 5.0, Chloride 109 H, Carbon Dioxide 23.0, Anion Gap 7, BUN 55 H, Creatinine 2.62 H, Estim Creat Clear Calc 15.03, Est GFR (MDRD) Af Amer 23 L, Est GFR (MDRD) Non-Af 19 L, BUN/Creatinine Ratio 21.0 H, Glucose 107 H, Calcium 8.2 L 03/23/19 05:15: WBC 11.6 H, RBC 2.97 L, Hgb 9.0 L, Hct 29.1 L, MCV 98.0, MCH 30.3, MCHC 30.9 L, RDW Std Deviation 70.4 H, RDW Coeff of Myke 21.6 H, Plt Count 169, MPV 12.2 H, Differential Comment SCANNED Current Medications Acetaminophen (Tylenol) 1,000 mg PO Q8H [facility] Last Admin: 03/23/19 14:31 Dose: 1,000 mg Documented by: Atorvastatin Calcium (Lipitor) 20 mg PO QHS [facility] Last Admin: 03/22/19 21:47 Dose: 20 mg Documented by: Brimonidine Tartrate (Brimonidine 0.2% 5ml Bottle) 1 drop EACH EYE BID [facility] Last Admin: 03/23/19 10:56 Dose: 1 drop Documented by: Cephalexin (Keflex) 250 mg PO Q8 [facility] Stop: 03/27/19 22:01 Last Admin: 03/23/19 14:31 Dose: 250 mg Documented by: Cholecalciferol (Vitamin D) 5,000 unit PO DAILY [facility] Last Admin: 03/23/19 10:52 Dose: Not Given Documented by: Cyanocobalamin (Vitamin B12) 1,000 mcg PO DAILY [facility] Last Admin: 03/23/19 10:52 Dose: Not Given Documented by: Docusate Sodium (Colace) 100 mg PO BID PRN PRN PRN Reason: Constipation Fluticasone Propionate (Flonase Nasal [place]) 2 spray NASAL DAILY [facility] Last Admin: 03/23/19 10:57 Dose: Not Given Documented by: Heparin Sodium (Beef Lung) () 50 units IV UD PRN PRN Reason: Port-a-Cath (VAD)Heparin Flush Heparin Sodium (Porcine) (Heparin Na) 5,000 unit SC Q12H [facility] Last Admin: 03/23/19 10:57 Dose: 5,000 unit Documented by: Sodium Chloride () 250 mls @ 15 mls/hr IV .[id number] PRN PRN Reason: Saline Flush Sodium Chloride () 1,000 mls @ 100 mls/hr IV .Q10H [facility] Stop: 03/23/19 18:34 Last Admin: 03/23/19 09:17 Dose: 100 mls/hr Documented by: Isosorbide Mononitrate (Imdur) 60 mg PO BID [facility] Last Admin: 03/23/19 10:55 Dose: 60 mg Documented by: Latanoprost (Xalatan Opthalmic) 1 drop EACH EYE QHS [facility] Last Admin: 03/22/19 21:45 Dose: 1 drop Documented by: Metoprolol Tartrate (Lopressor (Beta Brandyn)) 75 mg PO BID [facility] Last Admin: 03/23/19 10:54 Dose: Not Given Documented by: Morphine Sulfate () 2 mg IV Q3H PRN PRN PRN Reason: Pain Score 6-10/10 [facility]ivit[facility]/Minerals ([facility]) [facility] Last Admin: 03/23/19 10:52 Dose: Not Given Documented by: Multivitamins/Minerals (Healthy Eyes) 1 capsule PO DAILY [facility] Last Admin: 03/23/19 10:52 Dose: Not Given Documented by: Nitroglycerin (Nitrostat) 0.4 mg SUBLINGUAL PRN PRN PRN Reason: Pain Score 1-10/10 Yjden-9-Hwpy Ethyl Esters (Lovaza) 1 gm PO DAILY [facility] Last Admin: 03/23/19 10:52 Dose: Not Given Documented by: Ondansetron HCl (Zofran) 4 mg IV Q6H PRN PRN PRN Reason: NAUSEA Last Admin: 03/23/19 09:15 Dose: 4 mg Documented by: Oxycodone HCl (Oxyir) 5 - 10 mg PO Q4H PRN PRN PRN Reason: Pain Score 1-10/10 Last Admin: 03/21/19 16:35 Dose: 10 mg Documented by: Polyethylene Glycol (Miralax) 17 gm PO DAILY [facility] Last Admin: 03/23/19 10:55 Dose: Not Given Documented by: Ranolazine (Ranexa) 1,000 mg PO BID [facility] Last Admin: 03/23/19 10:55 Dose: 1,000 mg Documented by: Sodium Chloride () 10 - 40 ml IV UD PRN PRN Reason: Port-a-Cath (VAD) Flush Last Admin: 03/23/19 09:15 Dose: 10 ml Documented by: Sodium Chloride (0.9% Nacl (Sterile) Posiflush) 10 - 40 ml IV UD PRN PRN Reason: Port access or dressing change Throat Lozenges (Cepacol Sore Throat Lozenge) 1 lozenge MUCOUS MEM Q2H PRN PRN PRN Reason: sore throat Last Admin: 03/20/19 09:52 Dose: 1 lozenge Documented by: Timolol Maleate (Timoptic) 1 drop EACH EYE BID [facility] Last Admin: 03/23/19 10:56 Dose: 1 drop Documented by: Assessment/Plan This patient was seen in conjunction with Carol COUCH. I have independently interviewed and examined the patient and reviewed pertinent history, examination findings, laboratory and plan of management. I have reviewed the note and agree with the documented findings with the few additional points. In brief, patient is admitted for mechanical fall prior to admission with debility. She fell on the head and had his laceration which was repaired in ED. CT scan did not show any acute change. Hip x-ray shows no fracture involving the pelvis or left hip. Total bilateral hip arthroplasty normal alignment. Minimal irregularity at left inferior pubic ramus of doubtful clinical significance. Shoulder x-ray shows old transverse fracture proximal to the humeral metaphysis with impaction. Patient has acute E. coli UTI: IV Rocephin. Changed to oral Keflex. Patient also has constipation. Dulcolax suppository and oral laxatives. Other comorbidities as mentioned above. Is stable. Plan to discharge to SNF I have discussed my assessment with Carol COUCH and orders have been reviewed. Code Visit Inpatient E&M: 38293 Subs Hosp L2
[2019-03-23] MEDS: Metoprolol Tartrate 25 MG Tablet 75 MG PO (21:54)
[2019-03-23] MEDS: Atorvastatin Calcium 20 MG Tablet PO (21:54)
[2019-03-23] MEDS: Latanoprost 0.005% 1 Bottle 1 DRP EACH EYE (21:56)
[2019-03-24] VITALS (7 sets, daily range): BP systolic 123–146; BP diastolic 58–69; PULSE 61–68; RESP 16–18; TEMP 36.7–37; O2SAT 92–95
[2019-03-24] MEDS: Acetaminophen 500 MG Tablet 1000 MG PO ×2 (05:03→14:29)
[2019-03-24] MEDS: Cephalexin 250 MG Capsule PO ×2 (05:03→14:29)
[2019-03-24 05:47] LABS: Hemoglobin 9.8 g/dL (12.0-15.0); Mean Corp Hgb Conc 30.6 g/dL (32-36); Mean Corpuscular Hgb 30.2 pg (27.0-32.0); Mean Corpuscular Volume 98.8 fL (81-99); Mean Platelet Vol. 12.6 fl (6.2-12.0); POSITIVE MORPHOLOGY YES; Platelet Count 196 K/mm3 (150-450); RBC Distribution Width CV 22.4 % (11.6-14.6); RBC Distribution Width SD 71.1 fl (35.1-43.9); Red Blood Count 3.24 M/mm3 (4.2-5.4); White Blood Count 11.6 K/mm3 (4.4-11.0)
[2019-03-24 06:08] LABS: Scan Indicated on CBC? Y/N YES- FLAGS NOTED
[2019-03-24 06:22] LABS: Anion Gap 6 (5-15); BUN 50 mg/dL (7-18); BUN/Creat Ratio 20.8 RATIO (10-20); Calcium,Total 7.9 mg/dL (8.5-10.1); Chloride 109 mmol/L (98-107); EST Glomerular Filtration Rate 21 mL/min (>60); Est Glom Filt Rate - Afr Amer 25 mL/min (>60); Estimated Creatinine Clearance 16.41 ml/min; Glucose 109 mg/dL (74-106); Potassium 4.9 mmol/L (3.5-5.1); Sodium Level 137 mmol/L (136-145)
[2019-03-24 07:04] LABS: Differential Comment SCANNED
[2019-03-24] MEDS: 0.9% Saline Lock 10 ML Syringe IV ×3 (08:42→16:04)
[2019-03-24] MEDS: Ondansetron 4 MG/2 ML Vial IV ×2 (08:42→14:29)
[2019-03-24] MEDS: Multivitamins,Ther W-Minerals Tablet 1 TABLET PO (08:43)
[2019-03-24] MEDS: oxyCODONE 5 MG Tablet PO (08:47)
--- NOTE | 2019-03-24 09:25 | CASEMGMT ---
Addendum entered by Krystyna Dong 03/24/19 09:45: SW received message from Lily at [employer] stating she has spoken with [employer] and pt's case is still pending. Original Note: Social Work Note SW faxed updated clinicals to [facility]. Pt is medically cleared for discharge once pre-cert is obtained. Plan: [facility] pending pre-cert Krystyna Dong [employer]ING [employer] LEADER, [employer] OPERATOR HELPER
[2019-03-24] MEDS: Isosorbide Mononitrate 60 MG Tablet PO (09:41)
[2019-03-24] MEDS: Heparin Injection (Vial) 5,000 UNIT/ML VIAL 5000 UNIT SC (09:41)
[2019-03-24] MEDS: Multivitamin (Healthy Eyes) Capsule 1 CAP PO (09:41)
[2019-03-24] MEDS: Ranolazine 500 MG Tablet 1000 MG PO (09:41)
[2019-03-24] MEDS: BRIMONIDINE 0.2% 5ML BOTTLE 1 DRP EACH EYE (09:42)
[2019-03-24] MEDS: Timolol 0.5% 5ML OPTH.BTL 1 DRP EACH EYE (09:43)
[2019-03-24] MEDS: Polyethylene Glycol 3350 17 GM PACKET PO (09:43)
[2019-03-24] MEDS: Metoprolol Tartrate 25 MG Tablet 75 MG PO (09:44)
--- NOTE | 2019-03-24 11:53 | TREXTCA.CO_ITS ---
- Diet 03/20/19 01:43 Diet: Cardiac/Low Cholesterol Food consistency:: Regular Liquid Consistency:: Regular/Thin Is pt able to select menu?: Yes - Routine Orders/Code Status Enema Type: Fleetz Enema Frequency: Daily PRN Suppository Type: Dulcolax 10mg Suppository Frequency: Daily PRN O2 Liters per Minute: 1-2 O2 Frequency: PRN Keep PO Greater than or Equal to (%): 90 Routine Lab Work: CBC, BMP, - - In 3 days and then Q Week. - Wound(s) TOP OF HEAD Wound Type: Laceration - Suggestions for Active Care Change Position every (hours): 2 Times a day to sit in chair: 3 - Therapies Physical Therapy: Eval and Treat Occupational Therapy: Eval and Treat Speech Therapy: Eval and Treat - Problem/Diagnosis (1) Iron deficiency anemia Status: Chronic Current Visit: No (2) Scalp laceration Status: Acute Current Visit: Yes (3) Recurrent falls Status: Acute Current Visit: Yes (4) Closed fracture of left inferior pubic ramus Status: Acute Current Visit: Yes (5) Injury of left shoulder and upper arm Status: Acute Current Visit: Yes (6) Chronic renal insufficiency Status: Chronic Current Visit: Yes (7) Chronic diastolic (congestive) heart failure Status: Chronic Current Visit: No (8) Essential (primary) hypertension Status: Chronic Current Visit: No (9) History of coronary artery stent placement Status: Resolved Comment: PCI-NIGHAT-RCA w/ 2.5 x 28 mm Promus Stent x 2, NIGHAT- Ramus w/ 2.25 x 20 Taxus Stent 05/21/2009 Current Visit: No (10) Elevated troponin Status: Chronic Current Visit: No (11) Atherosclerotic heart disease of [place] coronary artery without angina pectoris Status: Chronic Current Visit: No (12) Hyperlipemia Status: Chronic Current Visit: No - Allergies/Procedures Done in Hospital Allergies/Adverse Reactions: Allergies adalimumab [From Humira] Allergy (Verified 03/19/19 22:15) Rash ciprofloxacin HCl [From Cipro] Allergy (Verified 03/19/19 22:15) Unknown latex Allergy (Verified 03/19/19 22:15) Rash levofloxacin [From Levaquin] Allergy (Verified 03/19/19 22:15) Unknown lisinopril Allergy (Verified 03/19/19 22:15) Other COUGH Methotrexate Analogues Allergy (Verified 03/19/19 22:15) Hives naproxen Allergy (Verified 03/19/19 22:15) Unknown potassium clavulanate [From Augmentin] Allergy (Verified 03/19/19 22:15) Unknown Sulfa (Sulfonamide Antibiotics) Allergy (Verified 03/19/19 22:15) Unknown amlodipine Adverse Reaction (Severe, Verified 03/20/19 16:22) edema haloperidol lactate [From Haldol] Adverse Reaction (Unknown, Verified 03/19/19 22:15) agitation amoxicillin trihydrate [From Augmentin] Adverse Reaction (Verified 03/19/19 22:15) Upset Stomach hydromorphone HCl [From Dilaudid] Adverse Reaction (Verified 03/19/19 22:15) Other HALLUCINATIONS hydroxychloroquine sulfate [From Plaquenil] Adverse Reaction (Verified 03/19/19 22:15) Other VISION ISSUES Procedures: None - Type of Care/Length of Stay Estimated LOS: Convalescent Care Less Than 30 days Type of Care Needed: Skilled Rehab Potential: Fair Prognosis: Fair - Additional Orders/Day of Discharge H&P will serve as current which was dated: 03/20/19 Day of Discharge: 03/24/19 - Follow Up Care Primary Care Physician: Demarco Lopez MD [Primary Care Provider] - Please follow up with your Primary Care Physician in: 1 Week Please Follow Up With: Jonathan Jones NP-C When: As scheduled 04/21/19
--- NOTE | 2019-03-24 12:04 | DS.PCM_ITS ---
<Carol Perry - Last Filed: 03/24/19 12:13> Discharge Date and Diagnosis Date of Admission: 03/20/19 Date of Discharge: 03/24/19 - Primary Discharge Diagnosis Active and Suspected Problems (Last Reviewed 06/21/18 @ 14:11 by Nahid Hernandez MD) 1. Mechanical fall prior to admission with debility related to left hip pain and closed fracture left inferior pubic ramus 2. Acute E. coli UTI 3. SYLVIA on CKD stage IV 4. CAD status post stent 5. Chronic diastolic CHF 6. Hypertension 7. Hyperlipidemia 8. Glaucoma 9. Rheumatoid arthritis/Sjogren's/peripheral neuropathy 10. Chronic normocytic anemia - Secondary Discharge Diagnosis Chronic Problems (Last Reviewed 06/21/18 @ 14:11 by Nahid Hernandez MD) Iron deficiency anemia (Chronic) Chronic renal insufficiency (Chronic) Chronic diastolic (congestive) heart failure (Chronic) Essential (primary) hypertension (Chronic) Elevated troponin (Chronic) Atherosclerotic heart disease of [place] coronary artery without angina pectoris (Chronic) Hyperlipemia (Chronic) Hospital Course and Treatment Imaging Results: Diagnostic Data Brain CT 03/19/19 22:41 IMPRESSION: No acute intracranial abnormality. Normal brain for the patient's age. Posterior parietal scalp hematoma not significantly changed. Electronically Signed: Satya Guillen MD at 0:13 EST , Service support , Hip/Pelvis X-Ray 03/19/19 22:43 IMPRESSION: No fracture involving the pelvis or left hip. Total bilateral hip arthroplasties in normal alignment. Minimal irregularity left inferior pubic ramus of doubtful clinical significance. Electronically Signed: Satya Guillen MD at 0:23 EST , Service support , Shoulder X-Ray 03/19/19 22:43 IMPRESSION: Transverse fracture proximal humeral metaphysis with impaction which may represent an old injury. A fracture of the humeral head and neck was present on the prior shoulder series of 2016. If there is a high clinical suspicion of an acute fracture correlate with CT. Electronically Signed: Satya Guillen MD at 0:20 EST , Service support , Operations: None Procedures: None Summary of Care Provided: The patient is a 78 year old F admitted 03/20/2019 due to fall with left hip and pelvis pain. 1. Mechanical fall prior to admission with debility related to left hip pain and closed fracture left inferior pubic ramus-x-ray of left hip and pelvis shows no fracture involving the pelvis or left hip, bilateral hip arthroplasty with normal alignment, minimal irregularity left inferior pubic ramus. PT/OT. PRN pain regimen. SNF at discharge. Follow-up with primary care physician in 1 week. 2. Acute E. coli UTI-transitioned from IV Rocephin to oral Keflex with stop date 03/27/2019. 3. SYLVIA on CKD stage IV-improved with IV fluids and holding Lasix. Patient may resume Lasix upon discharge. Repeat BMP in 3 days at SNF. Patient has upcoming follow-up with cardiology 04/21/2019, may need lasix reduced if creatinine remains above baseline. 4. CAD status post stent-continue statin, isosorbide, metoprolol, Ranexa. Follows with Dr. Hernandez. 5. Chronic diastolic CHF-continue home Lasix regimen. 6. Hypertension-stable, continue isosorbide, metoprolol regimen. Amlodipine discontinued at discharge given dizziness upon standing. Orthostatic vitals ordered, pending at discharge and will be reviewed prior to DC. 7. Hyperlipidemia-continue statin. 8. Glaucoma-continue home ophthalmic regimen. 9. Rheumatoid arthritis/Sjogren's/peripheral neuropathy-no longer on regimen, stable. 10. Chronic normocytic anemia-at baseline. General: Alert, Oriented x3, Cooperative HEENT: Atraumatic, PERRLA, EOMI, Normocephalic Oral: Dry Mucosa Neck: Supple, No JVD, Negative Carotid Bruits Lungs: Clear to auscultation, Normal air movement Cardiovascular: Regular rate, Regular Rhythm, Normal S1, Normal S2, No murmurs Abdomen: Bowel Sounds Present, Soft, Non Tender, Non-Distended Extremities: No clubbing, No cyanosis, No edema, Capillary Refill Less than 3 Seconds Skin: No rashes, No breakdown Musculoskeletal: No Tenderness to Palpation of Joints or Extremities, Tenderness - Left hip/pelvis Neurological: Cranial nerves II-XII grossly intact, Neuro grossly intact Psych/Mental Status: Normal Affect, Appropriate Patient seen and examined prior to discharge. Physical assessment as noted above. Patient is stable for discharge with follow up recommendations as noted above. This patient was seen by MICHELLE He under the supervision of Dr. Carter. - Physical Exam Vitals/I&O's: Vital Signs Temp Pulse Resp BP Pulse Ox 98.6 F 68 18 146/69 H 92 03/24/19 09:30 03/24/19 09:45 03/24/19 09:30 03/24/19 09:30 03/24/19 09:45 Oxygen Flow Rate (L/min) 1 Oxygen Delivery Method Nasal Cannula Weight: 120 lb 9.486 oz Body Mass Index (BMI) 20.7 Intake and Output for Last 24 Hours 03/22/19 03/23/19 03/24/19 23:59 23:59 23:59 Intake Total 750 / 750 1220 / 1370 200 / 200 Output Total 100 / 300 800 / 800 Balance 650 / 450 420 / 570 200 / 200 Microbiology Past 72 Hours 03/20/19 00:13 Urine Catheter - Catheter Urine Culture - Final Presumptive E. coli Laboratory Results 03/24/19 05:20: WBC 11.6 H, RBC 3.24 L, Hgb 9.8 L, Hct 32.0 L, MCV 98.8, MCH 30.2, MCHC 30.6 L, RDW Std Deviation 71.1 H, RDW Coeff of Myke 22.4 H, Plt Count 196, MPV 12.6 H, Differential Comment SCANNED 03/24/19 05:20: Sodium 137, Potassium 4.9, Chloride 109 H, Carbon Dioxide 22.0, Anion Gap 6, BUN 50 H, Creatinine 2.40 H, Estim Creat Clear Calc 16.41, Est GFR (MDRD) Af Amer 25 L, Est GFR (MDRD) Non-Af 21 L, BUN/Creatinine Ratio 20.8 H, Glucose 109 H, Calcium 7.9 L Current Medications Acetaminophen (Tylenol) 1,000 mg PO Q8H [facility] Last Admin: 03/24/19 05:03 Dose: 1,000 mg Documented by: Atorvastatin Calcium (Lipitor) 20 mg PO QHS JOSLYN Last Admin: 03/23/19 21:54 Dose: 20 mg Documented by: Bisacodyl (Dulcolax) 10 mg RECTAL DAILY PRN PRN Reason: Severe constipation Brimonidine Tartrate (Brimonidine 0.2% 5ml Bottle) 1 drop EACH EYE BID [facility] Last Admin: 03/24/19 09:42 Dose: 1 drop Documented by: Cephalexin (Keflex) 250 mg PO Q8 [facility] Stop: 03/27/19 22:01 Last Admin: 03/24/19 05:03 Dose: 250 mg Documented by: Cholecalciferol (Vitamin D) 5,000 unit PO DAILY [facility] Last Admin: 03/24/19 09:40 Dose: Not Given Documented by: Cyanocobalamin (Vitamin B12) 1,000 mcg PO DAILY [facility] Last Admin: 03/24/19 09:40 Dose: Not Given Documented by: Fluticasone Propionate (Flonase Nasal [place]) 2 spray NASAL DAILY [facility] Last Admin: 03/24/19 09:40 Dose: Not Given Documented by: Heparin Sodium (Beef Lung) () 50 units IV UD PRN PRN Reason: Port-a-Cath (VAD)Heparin Flush Heparin Sodium (Porcine) (Heparin Na) 5,000 unit SC Q12H [facility] Last Admin: 03/24/19 09:41 Dose: 5,000 unit Documented by: Sodium Chloride () 250 mls @ 15 mls/hr IV .[id number] PRN PRN Reason: Saline Flush Isosorbide Mononitrate (Imdur) 60 mg PO BID [facility] Last Admin: 03/24/19 09:41 Dose: 60 mg Documented by: Latanoprost (Xalatan Opthalmic) 1 drop EACH EYE QHS [facility] Last Admin: 03/23/19 21:56 Dose: 1 drop Documented by: Metoprolol Tartrate (Lopressor (Beta Brandyn)) 75 mg PO BID [facility] Last Admin: 03/24/19 09:44 Dose: 75 mg Documented by: Morphine Sulfate () 2 mg IV Q3H PRN PRN PRN Reason: Pain Score 6-10/10 Multivitamins/Minerals ([facility]ivitamin With Minerals) [facility] Last Admin: 03/24/19 08:43 Dose: 1 tablet Documented by: Multivitamins/Minerals (Healthy Eyes) 1 capsule PO DAILY [facility] Last Admin: 03/24/19 09:41 Dose: 1 capsule Documented by: Nitroglycerin (Nitrostat) 0.4 mg SUBLINGUAL PRN PRN PRN Reason: Pain Score 1-10/10 [id number] Ethyl Esters (Lovaza) 1 gm PO DAILY [facility] Last Admin: 03/24/19 09:39 Dose: Not Given Documented by: Ondansetron HCl (Zofran) 4 mg IV Q6H PRN PRN PRN Reason: NAUSEA Last Admin: 03/24/19 08:42 Dose: 4 mg Documented by: Oxycodone HCl (Oxyir) 5 - 10 mg PO Q4H PRN PRN PRN Reason: Pain Score 1-1010 Last Admin: 03/24/19 08:47 Dose: 5 mg Documented by: Polyethylene Glycol (Miralax) 17 gm PO DAILY [facility] Last Admin: 03/24/19 09:43 Dose: 17 gm Documented by: Ranolazine (Ranexa) 1,000 mg PO BID [facility] Last Admin: 03/24/19 09:41 Dose: 1,000 mg Documented by: Senna/Docusate Sodium (Senokot-S, Rocio-Colace) 2 tablet PO BID [facility] Last Admin: 03/24/19 09:40 Dose: Not Given Documented by: Sodium Chloride () 10 - 40 ml IV UD PRN PRN Reason: Port-a-Cath (VAD) Flush Last Admin: 03/24/19 08:42 Dose: 10 ml Documented by: Sodium Chloride (0.9% Nacl (Sterile) Posiflush) 10 - 40 ml IV UD PRN PRN Reason: Port access or dressing change Throat Lozenges (Cepacol Sore Throat Lozenge) 1 lozenge MUCOUS MEM Q2H PRN PRN PRN Reason: sore throat Last Admin: 03/20/19 09:52 Dose: 1 lozenge Documented by: Timolol Maleate (Timoptic) 1 drop EACH EYE BID [facility] Last Admin: 03/24/19 09:43 Dose: 1 drop Documented by: Home Medications: Medications to take at Discharge Multivit-Min/FA/Lycopen/Lutein [Centrum Silver Tablet] 1 ea PO DAILY 04/01/15 nitroglycerin 0.4 mg sublingual tablet 0.4 mg SUBLINGUAL PRN PRN #25 tab 01/31/18 Cholecalciferol (Vitamin D3) [Vitamin D3] 5,000 unit PO DAILY 06/06/18 Cyanocobalamin (Vitamin B-12) [B-12] 1,000 mcg PO DAILY 06/06/18 Vit C/E/Zn/Coppr/Lutein/Zeaxan [Preservision Areds 2 Softgel] 1 ea PO BID 06/06/18 atorvastatin 20 mg tablet 20 mg PO QHS 06/21/18 omega-3 fatty acids 1,000 mg capsule 1,000 mg PO DAILY 06/21/18 potassium chloride ER 10 mEq capsule,extended release 10 meq PO QHS cap 06/21/18 Brimonidine Tartrate/Timolol [Combigan Eye Drops] 1 drp EACH EYE BID 02/13/19 Latanoprost 1 drp EACH EYE QHS 02/13/19 isosorbide mononitrate ER 60 mg tablet,extended release 24 hr 60 mg PO BID tab 02/19/19 furosemide 20 mg tablet 40 mg PO DAILY 03/14/19 Fluticasone Propionate [Flonase Allergy Relief] 2 spray INTRANASAL DAILY 03/20/19 Metoprolol Tartrate [Lopressor (beta brandyn)] 75 mg PO BID 03/20/19 Ranolazine [Ranexa] 1,000 mg PO BID 03/20/19 Acetaminophen [Tylenol] 1,000 mg PO Q8H tab 03/24/19 Cephalexin [Keflex] 250 mg PO Q8 cap 03/24/19 Oxycodone [Oxyir] 5 - 10 mg PO Q4H PRN PRN 1 Days #5 tab 03/24/19 Polyethylene Glycol 3350 [Miralax] 17 gm PO DAILY packet 03/24/19 Following Prescrptions Were Given to Patient: Oxycodone [Oxyir] 5 - 10 mg PO Q4H PRN PRN 1 Days #5 tab PRN Reason: Pain Score 1-10/10 Prescription Printed Primary Care Physician: Demarco Lopez MD [Primary Care Provider] - Please follow up with your Primary Care Physician in: 1 Week Please Follow Up With: Jonathan Jones NP-C When: As scheduled 04/21/19 Disposition: [facility] facility Minutes spent on discharge:: 35 Patient Condition:: Stable Medical Necessity - Tobacco Use Smoking Status: Never smoker Meaningful Use Info Meaningful Use Diagnoses (Choose all that apply): None applicable <Romero Carter - Last Filed: 03/24/19 16:16> Discharge Date and Diagnosis - Secondary Discharge Diagnosis Chronic Problems (Last Reviewed 06/21/18 @ 14:11 by Nahid Hernandez MD) Iron deficiency anemia (Chronic) Chronic renal insufficiency (Chronic) Chronic diastolic (congestive) heart failure (Chronic) Essential (primary) hypertension (Chronic) Elevated troponin (Chronic) Atherosclerotic heart disease of [place] coronary artery without angina pectoris (Chronic) Hyperlipemia (Chronic) Hospital Course and Treatment Operations: None Procedures: None Summary of Care Provided: Patient seen and examined independently. Data reviewed. I agree with the above note by the nurse practitioner. The patient is a 78 year old F presents with fall and subsequent pelvic fracture. Patient states that she was feeling dizzy as she does intermittently with a standing. Lost balance and fell subsequently fracturing her pelvis. Patient was seen in the emergency room and then subsequently brought to the floor. Patient was assessed for orthostasis with orthostatic vital signs were negative. Patient was found to have UTI and then started on ceftriaxone and then transitioned over to Keflex which she would continue through the . Overall, the patient is feeling better but given the patient's fall and unsteadiness, patient was evaluated by therapy and deemed a candidate for further rehab and patient will be discharged to nursing home facility in stable condition. [] - Physical Exam Vitals/I&O's: Vital Signs Temp Pulse Resp BP Pulse Ox 36.7 C 61 16 128/64 H 92 03/24/19 15:07 03/24/19 15:07 03/24/19 15:07 03/24/19 15:07 03/24/19 09:45 Oxygen Flow Rate (L/min) 1 Oxygen Delivery Method Room Air Weight: 54.7 kg Body Mass Index (BMI) 20.7 Orthostatic Vital Signs Start: 03/24/19 15:07 Freq: q24h Status: Active Protocol: Activity Type Activity Date Activity User E-Sign Co-Sign Detail Recorded Client Recorded Date Recorded By Document 03/24/19 15:07 NN [id number] 03/24/19 15:14 NN 03/24/19 15:07 Orthostatic Vitals Standing -Blood Pressure (90/60-120/80) 123/58 H -Extremity Use Left Arm -Pulse Rate (60-100) 65 Sitting -Blood Pressure (90/60-120/80) 123/64 H -Extremity Use Left Arm -Pulse Rate (60-100) 64 Lying -Blood Pressure (90/60-120/80) 128/64 H -Extremity Use Left Arm -Pulse Rate (60-100) 61 Intake and Output for Last 24 Hours 03/22/19 03/23/19 03/24/19 23:59 23:59 23:59 Intake Total 750 / 750 1220 / 1370 200 / 200 Output Total 100 / 300 800 / 800 Balance 650 / 450 420 / 570 200 / 200 General: Alert, Cooperative, No apparent distress HEENT: Atraumatic, Normocephalic Oral: Moist Mucosa, No Gingival or Mucosal Lesions/ Ulcerations Neck: No Nodes, Trachea Midline Lungs: Clear to auscultation, Normal air movement, No rhonchi, No wheeze Cardiovascular: Regular rate, Regular Rhythm, Normal S1, Normal S2, No murmurs Abdomen: Bowel Sounds Present, Soft, Non Tender, Non-Distended, No Hepato- splenomegaly Extremities: No edema, No Calf Tenderness Skin: No rashes, No breakdown Psych/Mental Status: Normal Affect, Appropriate Laboratory Results 03/24/19 05:20: WBC 11.6 H, RBC 3.24 L, Hgb 9.8 L, Hct 32.0 L, MCV 98.8, MCH 30.2, MCHC 30.6 L, RDW Std Deviation 71.1 H, RDW Coeff of [place]ke 22.4 H, Plt Count 196, MPV 12.6 H, Differential Comment SCANNED 03/24/19 05:20: Sodium 137, Potassium 4.9, Chloride 109 H, Carbon Dioxide 22.0, Anion Gap 6, BUN 50 H, Creatinine 2.40 H, Estim Creat Clear Calc 16.41, Est GFR (MDRD) Af Amer 25 L, Est GFR (MDRD) Non-Af 21 L, BUN/Creatinine Ratio 20.8 H, Glucose 109 H, Calcium 7.9 L Current Medications Acetaminophen (Tylenol) 1,000 mg PO Q8H [facility] Last Admin: 03/24/19 14:29 Dose: 1,000 mg Documented by: Atorvastatin Calcium (Lipitor) 20 mg PO QHS [facility] Last Admin: 03/23/19 21:54 Dose: 20 mg Documented by: Bisacodyl (Dulcolax) 10 mg RECTAL DAILY PRN PRN Reason: Severe constipation Brimonidine Tartrate (Brimonidine 0.2% 5ml Bottle) 1 drop EACH EYE BID [facility] Last Admin: 03/24/19 09:42 Dose: 1 drop Documented by: Cephalexin (Keflex) 250 mg PO Q8 [facility] Stop: 03/27/19 22:01 Last Admin: 03/24/19 14:29 Dose: 250 mg Documented by: Cholecalciferol (Vitamin D) 5,000 unit PO DAILY [facility] Last Admin: 03/24/19 09:40 Dose: Not Given Documented by: Cyanocobalamin (Vitamin B12) 1,000 mcg PO DAILY [facility] Last Admin: 03/24/19 09:40 Dose: Not Given Documented by: Fluticasone Propionate (Flonase Nasal [place]) 2 spray NASAL DAILY [facility] Last Admin: 03/24/19 09:40 Dose: Not Given Documented by: Heparin Sodium (Beef Lung) () 50 units IV UD PRN PRN Reason: Port-a-Cath (VAD)Heparin Flush Last Admin: 03/24/19 16:05 Dose: 50 units Documented by: Heparin Sodium (Porcine) (Heparin Na) 5,000 unit SC Q12H [facility] Last Admin: 03/24/19 09:41 Dose: 5,000 unit Documented by: Sodium Chloride () 250 mls @ 15 mls/hr IV .[id number] PRN PRN Reason: Saline Flush Isosorbide Mononitrate (Imdur) 60 mg PO BID [facility] Last Admin: 03/24/19 09:41 Dose: 60 mg Documented by: Latanoprost (Xalatan Opthalmic) 1 drop EACH EYE QHS [facility] Last Admin: 03/23/19 21:56 Dose: 1 drop Documented by: Metoprolol Tartrate (Lopressor (Beta Brandyn)) 75 mg PO BID [facility] Last Admin: 03/24/19 09:44 Dose: 75 mg Documented by: Morphine Sulfate () 2 mg IV Q3H PRN PRN PRN Reason: Pain Score 6-10/10 Multivitamins/Minerals ([facility]itamin With Minerals) [facility] Last Admin: 03/24/19 08:43 Dose: 1 tablet Documented by: Multivitamins/Minerals (Healthy Eyes) 1 capsule PO DAILY [facility] Last Admin: 03/24/19 09:41 Dose: 1 capsule Documented by: Nitroglycerin (Nitrostat) 0.4 mg SUBLINGUAL PRN PRN PRN Reason: Pain Score 1-1010 [id number] Ethyl Esters (Lovaza) 1 gm PO DAILY [facility] Last Admin: 03/24/19 09:39 Dose: Not Given Documented by: Ondansetron HCl (Zofran) 4 mg IV Q6H PRN PRN PRN Reason: NAUSEA Last Admin: 03/24/19 14:29 Dose: 4 mg Documented by: Oxycodone HCl (Oxyir) 5 - 10 mg PO Q4H PRN PRN PRN Reason: Pain Score 1-1010 Last Admin: 03/24/19 08:47 Dose: 5 mg Documented by: Polyethylene Glycol (Miralax) 17 gm PO DAILY [facility] Last Admin: 03/24/19 09:43 Dose: 17 gm Documented by: Ranolazine (Ranexa) 1,000 mg PO BID [facility] Last Admin: 03/24/19 09:41 Dose: 1,000 mg Documented by: Senna/Docusate Sodium (Senokot-S, Rocio-Colace) 2 tablet PO BID [facility] Last Admin: 03/24/19 09:40 Dose: Not Given Documented by: Sodium Chloride () 10 - 40 ml IV UD PRN PRN Reason: Port-a-Cath (VAD) Flush Last Admin: 03/24/19 16:04 Dose: 10 ml Documented by: Sodium Chloride (0.9% Nacl (Sterile) Posiflush) 10 - 40 ml IV UD PRN PRN Reason: Port access or dressing change Throat Lozenges (Cepacol Sore Throat Lozenge) 1 lozenge MUCOUS MEM Q2H PRN PRN PRN Reason: sore throat Last Admin: 03/20/19 09:52 Dose: 1 lozenge Documented by: Timolol Maleate (Timoptic) 1 drop EACH EYE BID [facility] Last Admin: 03/24/19 09:43 Dose: 1 drop Documented by: Discharge Diet: No Restrictions Disposition: [facility] facility Minutes spent on discharge:: 35 Patient Condition:: Stable Medical Necessity - Tobacco Use Smoking Status: Never smoker Meaningful Use Info Meaningful Use Diagnoses (Choose all that apply): None applicable Code Visit Inpatient E&M: 99554 Disch Hosp
--- NOTE | 2019-03-24 12:35 | CASEMGMT ---
Addendum entered by Krystyna Dong 03/24/19 13:10: VINICIO faxed completed discharge paperwork to [facility] including transfer to extended care facility, signed medication list and any scripts. Original in SNF folder and copy on pt's chart. SW had completed PAS/RR last week, original in SNF folder and copy on pt's chart. VINICIO placed a call to Lily at [facility] and left her a message that pt's family will be transporting pt around 4:30pm. Plan: [facility] skilled today with pt's family transporting via private vehicle around 4:30pm Krystyna Dong RESORT HOST, [employer] Original Note: Social Work Note SW received call from Lily at [facility] stating pre-cert has been obtained and pt is able to discharge to SNF today. Physician updated. SW in to speak with pt. Pt states that she spoke with her family who will be transporting pt. Pt is currently on oxygen and not on oxygen at home. SW informed pt that this worker will have to speak with RN to determine if pt will need to be transported with oxygen or can go without as they may determine if family is able to transport pt. Pt states understanding. SW spoke with RN. RN states pt is able to be transported without oxygen. SW in to speak with pt and RN present in room. SW updated pt that RN states pt is able to transport without oxygen. Pt states that she prefers her family to transport her then. SW asked pt about what time pt's family will be available to transport. Pt states I just updated them, but I know my daughter works till 4:00pm so it likely won't be till after then. SW informed pt that this worker will update [facility] that it will be about 4:30pm when pt will be picked up for transportation. Pt states understanding. VINICIO waiting for completed discharge paperwork and then will fax. Krystyna Dong RESORT HOST, [employer]OR[employer] BOOK SERVER
== END 2019-03-24 16:41 | disposition skilled nursing facility (03) | DRG 501 ==
LOC: ED 03-20 00:15 → MS3 03-20 00:24
PROVIDERS: Internal Medicine; Nurse Practitioner Family; Admitting Provider Family Medicine; Emergency Provider Emergency Medicine; Family Provider Family Medicine; PCP Family Medicine
DX: S32.592A Other specified fracture of left pubis, initial encounter for closed fracture (principal); I50.32 Chronic diastolic (congestive) heart failure; I13.0 Hypertensive heart and chronic kidney disease with heart failure and stage 1 through stage 4 chronic kidney disease, or unspecified chronic kidney disease; N18.4 Chronic kidney disease, stage 4 (severe); N17.9 Acute kidney failure, unspecified; N39.0 Urinary tract infection, site not specified; S01.01XA Laceration without foreign body of scalp, initial encounter; W18.30XA Fall on same level, unspecified, initial encounter; Y92.009 Unspecified place in unspecified non-institutional (private) residence as the place of occurrence of the external cause; R53.81 Other malaise; E78.5 Hyperlipidemia, unspecified; D64.9 Anemia, unspecified; I25.10 Atherosclerotic heart disease of native coronary artery without angina pectoris; M06.9 Rheumatoid arthritis, unspecified; M35.00 Sjogren syndrome, unspecified; Z96.643 Presence of artificial hip joint, bilateral; G62.9 Polyneuropathy, unspecified; B96.20 Unspecified Escherichia coli [E. coli] as the cause of diseases classified elsewhere; H40.9 Unspecified glaucoma; Z79.01 Long term (current) use of anticoagulants; Z91.81 History of falling; Z95.5 Presence of coronary angioplasty implant and graft
CPT/HCPCS: 36591; 70450; 73030; 73502; 80048; 81001; 84484; 85025; 85027; 87086; 87088; 87186; 92507; 92611; 93005; 97110; 97116; 97162; 97166; 97530; 97535; 99251; 99283; J7030; A4216; G0463; J0696; J1940; J2405

== ENCOUNTER 2019-04-28 15:12 | Inpatient (IN) | payer MEDICARE, SELFPAY ==
[2019-03-20 01:07] VITALS: BMI 20.7
[2019-04-28] VITALS (12 sets, daily range): BP systolic 125–165; BP diastolic 56–83; PULSE 61–76; RESP 16–19; TEMP 36.3–36.7; O2SAT 94–97; BMI 19.3; BMI 19.9
--- NOTE | 2019-04-28 15:44 | VDLE_ITS ---
Reason For Study: EDEMA RIGHT LEFT GSV is normal. GSV is normal. CFV is compressible, spontaneous, phasic, CFV is compressible, spontaneous, phasic, competent and demonstrates normal competent, and demonstrates normal augmentation. augmentation. FV is compressible, spontaneous, phasic, FV is compressible, spontaneous, phasic, competent and demonstrates normal competent and demonstrates normal augmentation. augmentation. POP V is compressible, spontaneous, phasic, POP V is compressible, spontaneous, phasic, competent and demonstrates normal competent and demonstrates normal augmentation. augmentation. T/P Trunk is compressible. T/P Trunk is compressible. PTV is compressible. PTV is compressible. RT PerV is compressible. LT PerV is compressible. Procedure Exam performed portable in ED. The study was technically difficult. Technically limited calf vein visualization due to severe pitting edema. A preliminary report was called and/or faxed to ED. Interpretation Summary Deep veins of the lower extremities are bilaterally patent and compressible segmentally. There is no evidence of deep vein thrombosis on either side. Valvular competence appears intact within the proximal deep venous systems bilaterally. The great saphenous veins appear bilaterally patent and compressible segmentally. Ordering Physician: Randi German Referring Physician: JODIE VIDALES Performed By: Lenore Gee, [place], RVT
--- NOTE | 2019-04-28 15:46 | ED.DCSUM_ITS ---
History of Present Illness Chief Complaint: Shortness of Breath Informant: Patient Onset: Weeks Activity at onset: Unknown Timing: Intermittent Quality: Dyspnea on exertion, Orthopnea Worsened by: Lying flat Relieved by: Nothing Associated Symptoms: Negative for: Cough, Fever Chest Pain: Intermittent Narrative: Patient is a 78-year-old female with history of hypertension, coronary artery disease, peripheral vascular disease, CKD 4, anemia, Sjogren's syndrome, lupus, peripheral edema as well as isolated remote DVT in the left lower extremity presenting with shortness of breath. Patient states she has been intermittently short of breath for the past 1 to 2 weeks. She describes her shortness of breath as feeling like she cannot take a deep breath. She states it wakes her up at night. She notes that March 19 she was admitted to the hospital after a fall at the pelvic fracture and urinary tract infection. She was in the hospital for 4 to 5 days and also had issues with edema of her lower extremities and fluid retention. She was discharged to senior living and was actually just discharged in the senior living 6 days ago. While she is in the senior living she did intermittently need oxygen. Since she has been home from the nursing facility she has been sleeping in a chair. Patient was also treated for urinary tract infection while she was in the senior living. She states she feels like her UTI symptoms have returned. She has had drainage of her lower extremities and cont inued swelling. Her PCP is going to refer her to what sounds like a lymphedema specialist. Patient is also been off her Norvasc for couple weeks. Finally patient notes has had some intermittent chest discomfort. She does not have any currently. She denies any cough. She denies any fever or chills. Past Medical History - Allergies and Home Meds Allergies/Adverse Reactions: Allergies adalimumab [From Humira] Allergy (Verified 04/28/19 15:18) Rash ciprofloxacin HCl [From Cipro] Allergy (Verified 04/28/19 15:18) Unknown doxazosin Allergy (Verified 04/28/19 15:18) Other hydroxyzine [From Vistaril] Allergy (Verified 04/28/19 15:18) Other latex Allergy (Verified 04/28/19 15:18) Rash levofloxacin [From Levaquin] Allergy (Verified 04/28/19 15:18) Unknown lisinopril Allergy (Verified 04/28/19 15:18) Other COUGH Methotrexate Analogues Allergy (Verified 04/28/19 15:18) Hives naproxen Allergy (Verified 04/28/19 15:18) Unknown potassium clavulanate [From Augmentin] Allergy (Verified 04/28/19 15:18) Unknown Sulfa (Sulfonamide Antibiotics) Allergy (Verified 04/28/19 15:18) Unknown amlodipine Adverse Reaction (Severe, Verified 04/28/19 15:18) edema haloperidol lactate [From Haldol] Adverse Reaction (Unknown, Verified 04/28/19 15:18) agitation amoxicillin trihydrate [From Augmentin] Adverse Reaction (Verified 04/28/19 15:18) Upset Stomach hydromorphone HCl [From Dilaudid] Adverse Reaction (Verified 04/28/19 15:18) Other HALLUCINATIONS hydroxychloroquine sulfate [From Plaquenil] Adverse Reaction (Verified 04/28/19 15:18) Other VISION ISSUES Past Medical History: - - hypertension, coronary artery disease, peripheral vascular disease, CKD 4, anemia, Sjogren's syndrome, lupus, peripheral edema as well as isolated remote DVT in the left lower extremity Surgical History: angioplasty, total hip arthroplasty - Bilateral, - - Carpal tunnel syndrome Smoking Status: Never smoker - Family History Paternal Family History: Family History (Last Reviewed 07/22/18 @ 10:47 by Maribeth Pollack) Father No problems noted. Family History: Reports: Cancer - breast, - Maternal Family History: Family History (Last Reviewed 07/22/18 @ 10:47 by Maribeth Pollack) Father No problems noted. Family History: Reports: Cancer - breast, - Review of Systems General: Reports: Malaise. Denies: Chills, Fever, Sweats Eyes: Denies: Visual changes - bilaterally, Diplopia ENT: Denies: Rhinorrhea, Sore throat Cardiovascular: Denies: Chest pain, Palpitations Respiratory: Reports: Dyspnea, Paroxysmal nocturnal dyspnea. Denies: Cough Gastrointestinal: Denies: Abdominal pain, Nausea, Vomiting, Diarrhea, Melena, Hematochezia Genitourinary: Denies: Dysuria, Hematuria, Frequency Musculoskeletal: Reports: Swelling - LE. Denies: Back pain, Extremity Pain Skin: Denies: Rash, Wounds Neurological: Denies: Headache, Weakness, Numbness Physical Exam Vital Signs/Narrative: Vital Signs Temp Pulse Resp BP Pulse Ox 04/28/19 15:25 97.4 F L 76 16 165/83 H 97 04/28/19 15:14 97.4 F L 76 16 165/83 H 97 Inital Vital Signs reviewed: Yes General: Well nourished, Well developed, No Acute Distress Head: Normocephalic, Atraumatic Eyes: Perrl, EOMI ENT: Moist mucous membranes, No rhinorrhea Neck: Supple, Nontender, - - +JVD Cardiovascular: Regular rate, Regular rhythm, Murmur Respiratory: No distress, CTA bilaterally, Chest nontender, Diminished - bases. Negative for: Wheezing, Decreased Air Movement, Retractions Abdomen: Soft, Nontender, Nondistended, Normal bowel sounds Back: Nontender, Normal Inspection Extremities: Nontender, Edema - Lateral pitting lower extremity, left slightly worse than right Skin: Normal color, No rash, - - Mild amount of serosanguineous drainage of the bilateral lower legs Neurological: Alert, Oriented x3, Cranial nerves II-XII grossly intact, Normal Strength, Normal Sensation Psychological: Normal affect, Normal Mood Diagnostic/Tx/Re-eval Chest X-Ray - ED: 2 View, Read by ED Physician, Read by Radiologist, Left Effusion Clinical Impression(s) from Imaging Studies Chest X-Ray 04/28/19 16:50 IMPRESSION: Left base infiltrate with moderate effusion. Electronically Signed: Ananth Jacobsen, at 17:07 EST Tel , Service support , Laboratory Data 04/28/19 04/28/19 04/28/19 16:20 16:20 16:20 WBC 10.1 RBC 3.45 L Hgb 11.3 L Hct 37.5 MCV 108.7 H MCH 32.8 H MCHC 30.1 L RDW Std Deviation 94.8 H RDW Coeff of [place] 23.4 H Plt Count 244 MPV 11.9 Immature Gran % (Auto) 0.800 Neut % (Auto) 70.3 H Lymph % (Auto) 13.1 L [place] % (Auto) 13.7 H Eos % (Auto) 1.6 Baso % (Auto) 0.5 Absolute Neuts (auto) 7.1 Absolute Lymphs (auto) 1.32 Nucleated RBC % 0 Plt Morphology Comment Not Reportable RBC Morphology N CHROM Anisocytosis 2+ Sodium 139 Potassium 5.0 Chloride 110 H Carbon Dioxide 23.0 Anion Gap 6 BUN 57 H Creatinine 2.25 H Estim Creat Clear Calc 16.84 Est GFR (MDRD) Af Amer 27 L Est GFR (MDRD) Non-Af 22 L BUN/Creatinine Ratio 25.3 H Glucose 121 H Calcium 9.5 Troponin I 0.086 H B-Natriuretic Peptide > 5000.0 H TSH Urine Color Urine Clarity Urine pH Ur Specific [place] Urine Protein Urine Glucose (UA) Urine Ketones Urine Occult Blood Urine Nitrite Urine Bilirubin Urine Urobilinogen Ur Leukocyte Esterase Urine RBC Urine WBC Ur Squamous Epith Cells Urine Bacteria Urine Mucus 04/28/19 04/28/19 16:20 16:30 WBC RBC Hgb Hct MCV MCH MCHC RDW Std Deviation RDW Coeff of [place] Plt Count MPV Immature Gran % (Auto) Neut % (Auto) Lymph % (Auto) [place] % (Auto) Eos % (Auto) Baso % (Auto) Absolute Neuts (auto) Absolute Lymphs (auto) Nucleated RBC % Plt Morphology Comment RBC Morphology Anisocytosis Sodium Potassium Chloride Carbon Dioxide Anion Gap BUN Creatinine Estim Creat Clear Calc Est GFR (MDRD) Af Amer Est GFR (MDRD) Non-Af BUN/Creatinine Ratio Glucose Calcium Troponin I B-Natriuretic Peptide TSH 2.68 Urine Color Yellow Urine Clarity Sl. Cloudy Urine pH 6.0 Ur Specific [place] 1.010 Urine Protein 100 H Urine Glucose (UA) Normal Urine Ketones Negative Urine Occult Blood Negative Urine Nitrite Negative Urine Bilirubin Negative Urine Urobilinogen Normal Ur Leukocyte Esterase 25 H Urine RBC 0 SEEN Urine WBC 0-5 SEEN Ur Squamous Epith Cells 0-5 SEEN Urine Bacteria 0 SEEN Urine Mucus 0 SEEN - Rhythm Strip Rhythm Strip: Sinus Rhythm Rate: 72 Ectopy: None - EKG Initial EKG Interpretation: Sinus Rhythm, - - Sinus rhythm with bifascicular blockNormal intervalsLeft axis deviationNormal ST segments - Medical Decision Making She is evaluated for worsening shortness of breath. This has been progressing over the past 1 to 2 weeks. She does have significant bilateral lower extremity edema as well as JVD. Her breath sounds are diminished at the bases but do not appreciate any crackles. Patient is not reporting any fever. She does not have a leukocytosis. She does have a significant pleural effusion on the left side which is likely the cause of her symptoms. It is read as a possible infiltrate however clinically patient does not have a pneumonia. I would not start antibiotics at this time. Duplex of the lower extremities is obtained to rule out DVT. This is negative. Patient is started on IV Lasix in the emergency room.CBC shows a mild anemia however this appears to be the patient's baseline if not improved from her baseline. Patient's creatinine is 2.25 but this is her baseline. Her troponin is indeterminately elevated 0.086. She does not have dynamic EKG changes. This might be secondary to her CKD versus strain from CHF. Patient's proBNP is significantly elevated. At greater than 5000. Urinalysis shows 25 leukoesterase with no bacteria or other significant abnormalities. As patient has been having symptoms that are consistent with UTI did send off a urine culture but again will not start antibiotics. Patient be admitted to PCU for diuresing and further evaluation of the cause of her pleural effusion. She is stable at time of disposition. ED Disposition - Plan for ED Patient: Disposition: Acute Care Hospital [facility] Diagnosis: Pleural effusion, left, Dyspnea, Acute exacerbation of CHF (congestive heart failure), Lower extremity edema
[2019-04-28 16:42] LABS: Bacteria 0 SEEN /hpf (None Seen); Mucous, Urine 0 SEEN /hpf (<or=2+); Red Blood Cells-Urine 0 SEEN /hpf (0-5)
[2019-04-28 16:43] LABS: Absolute Lymphocyte Count 1.32 X10^3/uL (0.83-4.51); Absolute Neutrophil Count 7.1 X10^3/uL (2.0-7.7); Basophil# 0.05 X10^3/uL; Basophil% 0.5 % (0-1); Eosinophil# 0.16 X10^3/uL; Eosinophils% 1.6 % (0-5); Hematocrit 37.5 % (37-47); Hemoglobin 11.3 g/dL (12.0-15.0); Lymphocyte # 1.32 X10^3/ul (4.0); Lymphocyte % 13.1 % (19-41); Mean Corp Hgb Conc 30.1 g/dL (32-36); Mean Corpuscular Hgb 32.8 pg (27.0-32.0); Mean Corpuscular Volume 108.7 fL (81-99); Mean Platelet Vol. 11.9 fl (6.2-12.0); Monocyte# 1.38 X10^3/uL; Monocyte% 13.7 % (0-10); NRBC Flagged by Analyzer 0 % (0-5); Neutrophil # 7.08 X10^3/uL (2.7-7.7); Neutrophil % 70.3 % (47-70); POSITIVE MORPHOLOGY YES; Platelet Count 244 K/mm3 (150-450); RBC Distribution Width CV 23.4 % (11.6-14.6); RBC Distribution Width SD 94.8 fl (35.1-43.9); Red Blood Count 3.45 M/mm3 (4.2-5.4); White Blood Count 10.1 K/mm3 (4.4-11.0)
[2019-04-28 16:46] LABS: Color, Urine Yellow (Yellow); Glucose, Dipstick Normal (Normal); Ketone-Dipstick Negative (Negative); Leukocyte Esterase-Dipstick 25 /ul (Negative); Nitrite-Dipstick Negative (Negative); Occult Blood-Urine Negative /ul (Negative); Protein-Dipstick 100 mg/dl (Negative); Urine Bilirubin Dipstick Negative (Negative); Urine Clarity Sl. Cloudy (Clear); Urine Urobilinogen Normal (Normal)
--- NOTE | 2019-04-28 16:50 | RAD_ITS ---
STUDY: X-RAY CHEST REASON FOR EXAM: Female, 78 years old. Cough TECHNIQUE: PA and lateral views of the chest COMPARISON: X-ray chest February 13, 2019 FINDINGS: Left chest tunneled catheter is stable in position. There is a left base infiltrate with moderate effusion. The right lung pleural space are clear. The lungs are clear. There are no pleural effusions. There is no pneumothorax. The heart is obscured. The visualized osseous structures are within normal limits. RAD/Chest PA and Lateral IMPRESSION: Left base infiltrate with moderate effusion. Electronically Signed: Ananth Jacobsen, at 17:07 EST Tel , Service support ,
[2019-04-28 16:51] LABS: Differential Indicated SCAN CRITERIA MET
[2019-04-28 16:52] LABS: Squamous Epithelial Cells - UA 0-5 SEEN /hpf (5-10); White Blood Cells 0-5 SEEN /hpf (0-5)
[2019-04-28 17:03] LABS: Anion Gap 6 (5-15); BUN 57 mg/dL (7-18); BUN/Creat Ratio 25.3 RATIO (10-20); Calcium,Total 9.5 mg/dL (8.5-10.1); Chloride 110 mmol/L (98-107); Creatinine, Serum 2.25 mg/dL (0.55-1.02); EST Glomerular Filtration Rate 22 mL/min (>60); Est Glom Filt Rate - Afr Amer 27 mL/min (>60); Estimated Creatinine Clearance 16.84 ml/min; Glucose 121 mg/dL (74-106); Sodium Level 139 mmol/L (136-145)
[2019-04-28 17:22] LABS: Anisocytosis 2+; Red Cell Morphology N CHROM NORMAL (NORM C&C)
[2019-04-28 17:37] LABS: BNP,B-Type NATRIURETIC PEPTIDE > 5000.0 pg/mL (0-100)
--- NOTE | 2019-04-28 17:47 | PCM.HP.STD ---
History of Present Illness Date of Admission: 04/28/19 Chief Complaint: Shortness of breath, lower extremity swelling The patient is a 78 year old F with an extensive past medical history as listed. She was admitted through the ED on 04/28/2019 with a complaint of shortness of breath and lower extremity swelling. Patient recently got out of the prison about 2 weeks ago after completing rehab for subsequently she went home but says she has been short of breath since she went home and as such she cannot lie flat in the bed and has to sleep in a chair. She has also noticed associated lower extremity edema which is been going on for about a month and gradually worsening. Shortness of breath worsened and so she decided to come into the ED today. She denies any chest pain or palpitation, dizziness, lightheadedness, abdominal pain, diarrhea or vomiting. She admits to some burning with urination but denies any frequency of urination and states she is been compliant with her Lasix. Patient in the ED, blood pressure was 161/81 but vitals were otherwise stable. She was saturating at 95% on room air. Chemistry was significant for BNP of greater than 5000 with troponin of 0.086 and creatinine of 2.25 which is around her baseline. CBC showed hemoglobin of 11.3 platelets 244. EKG showed no acute ST changes. Chest x-ray showed left base infiltrate with moderate effusion. She is been admitted to be managed for acute exacerbation of heart failure with preserved ejection fraction. [] Past Medical History Past Medical History (Chronic Problems): Chronic Problems (Last Reviewed 06/21/18 @ 14:11 by Nahid Hernandez MD) Iron deficiency anemia (Chronic) Chronic renal insufficiency (Chronic) Chronic diastolic (congestive) heart failure (Chronic) Essential (primary) hypertension (Chronic) Elevated troponin (Chronic) Atherosclerotic heart disease of [place] coronary artery without angina pectoris (Chronic) Hyperlipemia (Chronic) Medical History: Medical History (Last Reviewed 06/21/18 @ 14:11 by Nahid Hernandez MD) Chronic diastolic (congestive) heart failure (Chronic) I50.32 Essential (primary) hypertension (Chronic) I10 Atherosclerotic heart disease of [place] coronary artery without angina pectoris (Chronic) I25.10 Hyperlipemia (Chronic) E78.5 Anemia D64.9 Chronic kidney disease, stage 3 (moderate) N18.3 History of Sjogren's disease Z87.39 Rheumatoid arthritis M06.9 ARF (acute renal failure) (Resolved) GI bleed K92.2 Syncope and collapse R55 Diastolic dysfunction (Inactive) I51.9 Left ventricular hypertrophy (Inactive) I51.7 Allergies adalimumab [From Humira] Allergy (Verified 04/28/19 15:18) Rash ciprofloxacin HCl [From Cipro] Allergy (Verified 04/28/19 15:18) Unknown doxazosin Allergy (Verified 04/28/19 15:18) Other hydroxyzine [From Vistaril] Allergy (Verified 04/28/19 15:18) Other latex Allergy (Verified 04/28/19 15:18) Rash levofloxacin [From Levaquin] Allergy (Verified 04/28/19 15:18) Unknown lisinopril Allergy (Verified 04/28/19 15:18) Other COUGH Methotrexate Analogues Allergy (Verified 04/28/19 15:18) Hives naproxen Allergy (Verified 04/28/19 15:18) Unknown potassium clavulanate [From Augmentin] Allergy (Verified 04/28/19 15:18) Unknown Sulfa (Sulfonamide Antibiotics) Allergy (Verified 04/28/19 15:18) Unknown amlodipine Adverse Reaction (Severe, Verified 04/28/19 15:18) edema haloperidol lactate [From Haldol] Adverse Reaction (Unknown, Verified 04/28/19 15:18) agitation amoxicillin trihydrate [From Augmentin] Adverse Reaction (Verified 04/28/19 15:18) Upset Stomach hydromorphone HCl [From Dilaudid] Adverse Reaction (Verified 04/28/19 15:18) Other HALLUCINATIONS hydroxychloroquine sulfate [From Plaquenil] Adverse Reaction (Verified 04/28/19 15:18) Other VISION ISSUES Home Medications: Ambulatory Orders Medication Instructions Recorded Multivit-Min/FA/Lycopen/Lutein 1 ea PO DAILY 04/01/15 [Centrum Silver Tablet] nitroglycerin 0.4 mg sublingual 0.4 mg SUBLINGUAL PRN PRN #25 tab 01/31/18 tablet Cholecalciferol (Vitamin D3) 5,000 unit PO DAILY 06/06/18 [Vitamin D3] Cyanocobalamin (Vitamin B-12) 1,000 mcg PO DAILY 06/06/18 [B-12] Vit C/E/Zn/Coppr/Lutein/Zeaxan 1 ea PO BID 06/06/18 [Preservision Areds 2 Softgel] atorvastatin 20 mg tablet 20 mg PO QHS 06/21/18 potassium chloride 10 mEq 10 meq PO QHS cap 06/21/18 capsule,extended release Brimonidine Tartrate/Timolol 1 drp EACH EYE BID 02/13/19 [Combigan Eye Drops] Latanoprost 1 drp EACH EYE QHS 02/13/19 isosorbide mononitrate 60 mg 60 mg PO DAILY tab 02/19/19 tablet,extended release 24 hr Metoprolol Tartrate [Lopressor 75 mg PO BID 03/20/19 (beta elena)] Ranolazine [Ranexa] 1,000 mg PO BID 03/20/19 Acetaminophen [Tylenol] 1,000 mg PO Q8H 04/28/19 Fluorometholone [Fml] 1 drp OP BID 04/28/19 Lidocaine 1 ea TOPICAL DAILY 04/28/19 furosemide 40 mg tablet 40 mg PO BID 04/28/19 Surgical History: Surgical History (Last Updated 07/22/18 @ 10:47 by Maribeth Pollack) History of coronary artery stent placement (Resolved) Onset Date: 05/21/09 Z95.5 PCI-NIGHAT-RCA w/ 2.5 x 28 mm Promus Stent x 2, NIGHAT-Ramus w/ 2.25 x 20 Taxus Stent 05/21/2009 History of carpal tunnel release Z98.890 History of left heart catheterization Onset Date: 06/07/18 Z98.890 History of left hip replacement Z96.642 History of right hip hemiarthroplasty Z96.641 Surgical History: angioplasty, total hip arthroplasty - Bilateral, - - Carpal tunnel syndrome Psychiatric History: No pertinent psych hx [employer] History: No pertinent [employer] history Lives: With Family Smoking Status: Never smoker Alcohol: None Drugs: None - *Family History Paternal Family History: Family History (Last Reviewed 07/22/18 @ 10:47 by Maribeth Pollack) Father No problems noted. History Items: Cancer - breast, - Maternal Family History: Family History (Last Reviewed 07/22/18 @ 10:47 by Maribeth Pollack) Father No problems noted. History Items: Cancer - breast, - Review of Systems Constitutional: Denies: Chills, Fever, Malaise, Weakness, Weight Change, Fatigue Eyes: Denies: Blurred vision HEENT: Denies: Head Aches, Sinus Congestion, Sinus Drainage Cardiovascular: Reports: Edema, Orthopnea, Paroxysmal Noc. Dyspnea. Denies: Chest Pain, Chest Pressure, Chest Tightness, Heaviness, Light Headedness, Palpitations, Syncope Respiratory: Reports: Shortness of Breath, Shortness of breath at rest, Shortness of breath upon exertion. Denies: Cough, Sputum production Gastrointestinal: Denies: Abdominal Pain, Nausea, Vomiting Genitourinary: Denies: Dysuria Musculoskeletal: Denies: Joint Pain, Joint Tenderness Skin: Denies: Rash, Wounds Neurological: Denies: Numbness, Tingling, Focal weakness Psychiatric: Denies: Anxiety, Depression, Homicidal Ideations, Suicidal Ideations Hematologic/ Lymphatic: Denies: Easy Bruising, Easy Bleeding VTE Information - Inpt Only VTE Present on Admission: No VTE Pharm Prophylaxis ordered?: Yes - Physical Exam Vitals/I&O's: Vital Signs Temp Pulse Resp BP Pulse Ox 97.4 F L 72 17 155/81 H 97 04/28/19 15:25 04/28/19 17:36 04/28/19 17:36 04/28/19 17:36 04/28/19 17:36 Oxygen Delivery Method Room Air Weight: 116 lb Body Mass Index (BMI) 19.3 General: Alert, Oriented x3, Cooperative, No apparent distress HEENT: Atraumatic, PERRLA, EOMI, Normocephalic Oral: Moist Mucosa Neck: Supple, No JVD, Negative Carotid Bruits Lungs: - - mildly decreased breath sounds bibasally, no wheezes or crackles. on room air. Cardiovascular: Regular rate, Regular Rhythm, Normal S1, Normal S2, No murmurs Abdomen: Bowel Sounds Present, Soft, Non Tender, Non-Distended, No Hepato-splenomegaly Extremities: No clubbing, No cyanosis, - - 2+ bipedal pitting edema Skin: No rashes, No breakdown Musculoskeletal: No Tenderness to Palpation of Joints or Extremities Neurological: Cranial nerves II-XII grossly intact Psych/Mental Status: Normal Affect, Appropriate, Alert and oriented to time, place, person, mood and affect Laboratory Results 04/28/19 16:20: WBC 10.1, RBC 3.45 L, Hgb 11.3 L, Hct 37.5, MCV 108.7 H, MCH 32.8 H, MCHC 30.1 L, RDW Std Deviation 94.8 H, RDW Coeff of [place] 23.4 H, Plt Count 244, MPV 11.9, Immature Gran % (Auto) 0.800, Neut % (Auto) 70.3 H, Lymph % (Auto) 13.1 L, [place] % (Auto) 13.7 H, Eos % (Auto) 1.6, Baso % (Auto) 0.5, Absolute Neuts (auto) 7.1, Absolute Lymphs (auto) 1.32, Nucleated RBC % 0, Plt Morphology Comment Not Reportable, RBC Morphology N CHROM, Anisocytosis 2+ 04/28/19 16:20: Sodium 139, Potassium 5.0, Chloride 110 H, Carbon Dioxide 23.0, Anion Gap 6, BUN 57 H, Creatinine 2.25 H, Estim Creat Clear Calc 16.84, Est GFR (MDRD) Af Amer 27 L, Est GFR (MDRD) Non-Af 22 L, BUN/Creatinine Ratio 25.3 H, Glucose 121 H, Calcium 9.5, Troponin I 0.086 H 04/28/19 16:20: B-Natriuretic Peptide > 5000.0 H 04/28/19 16:30: Urine Color Yellow, Urine Clarity Sl. Cloudy, Urine pH 6.0, Ur Specific [place] 1.010, Urine Protein 100 H, Urine Glucose (UA) Normal, Urine Ketones Negative, Urine Occult Blood Negative, Urine Nitrite Negative, Urine Bilirubin Negative, Urine Urobilinogen Normal, Ur Leukocyte Esterase 25 H, Urine RBC 0 SEEN, Urine WBC 0-5 SEEN, Ur Squamous Epith Cells 0-5 SEEN, Urine Bacteria 0 SEEN, Urine Mucus 0 SEEN Diagnostic Data Chest X-Ray 04/28/19 16:50 IMPRESSION: Left base infiltrate with moderate effusion. Electronically Signed: Ananth Jacobsen, at 17:07 EST Tel , Service support , Assessment/Plan All Active Problems (Last Reviewed 06/21/18 @ 14:11 by Nahid Hernandez MD) Scalp laceration (Acute) Recurrent falls (Acute) Closed fracture of left inferior pubic ramus (Acute) Injury of left shoulder and upper arm (Acute) History of coronary artery stent placement (Resolved 05/21/09) ARF (acute renal failure) (Resolved) Fracture of femoral neck, left (Resolved) Hypertensive emergency (Resolved) Pyelonephritis, acute (Resolved) 78-year-old female admitted with a complaint of shortness of breath and lower extremity edema. 1. Acute on chronic heart failure with preserved ejection fraction BNP >5000. CXR showed left pleural effusion and infiltrate; however there is no evidence of any infection and she is afebrile and has no elevated white cell count. EKG showed no acute ST changes. Admit to PCU with telemetry Start on IV Lasix 40 mg twice daily. Fluid restriction 1500 cc daily. Monitor strict intake and output chart Consult cardiology o/a of markedly elevated BNP. 2D echo (: EF of 65% with stage II diastolic dysfunction and no regional wall motion abnormalities noted. No pericardial effusion RVSP was 32 mmHg. Get 2D echo 2. Indeterminate troponins Troponin is 0.086. Patient has no chest pain. This could be due to fluid overload from heart failure. Cycle troponins. Currently on Imdur and metoprolol. Will continue. Sublingual nitroglycerin as needed. 3. CAD: Had a cardiac cath in May 2018 which showed normal left main coronary artery and moderate luminal irregularities up to 50% in the LAD and moderate luminal irregularities in the circumflex and first diagonal arteries as well. She had 80% stenosis in the right coronary artery with an in-stent 95% stenosis and collateral flow from left to right. At that time she was severely anemic and so it was decided that she would not be a candidate for taking long-term aspirin and Plavix and so she could not have stenting done. Medical therapy was advocated. currently on statin, metoprolol and ranolazine 4. CKD stage III: Cr is 2.26 which is around her baseline. Creatinine may trend up with diuresis. Will monitor creatinine closely. 5. History of Sjogren's disease and rheumatoid arthritis. stable. 6. Hyperlipidemia: on statin 7. Recent history of right hip fracture Managed conservatively. Currently stable. Got out of prison 2 weeks ago. Consult PT OT. DVT prophylaxis: Lovenox Code Visit Inpatient E&M: 43508 Init Hosp L3
[2019-04-28] MEDS: Furosemide 40 MG/4 ML Vial IV (17:56)
--- NOTE | 2019-04-28 18:39 | PCM.CONS.C ---
Reason for Consult History of Present Illness: JOSELINE NAVARRETE, is a 78 F who presents to the emergency room with progressive shortness of breath. She has recently been domiciled in the custodial and she has been having more problems breathing. She therefore presented to the emergency room and our office was alerted prior to her getting to the emergency room. She was evaluated and noted to have a markedly elevated natruretic peptide level. She does have a history of coronary artery disease with angioplasty and stenting of her RCA and ramus intermedius in 2009, hypertension, hyperlipidemia, anemia requiring occasional blood transfusions, and renal insufficiency. She was hospitalized in May 2018 and underwent a heart catheterization. Heart catheterization demonstrated an ejection fraction of 55%, angiographically normal left main coronary artery, left anterior descending artery with moderate luminal irregularities up to 50%, first diagonal vessel with moderate luminal irregularities of 50%, circumflex artery with mild luminal irregularities, ramus intermedius which bifurcates with a superior division having 80% stenosis in the right coronary artery with an in-stent 95% stenosis and collateral flow from left to right. It was decided that due to her severe anemia she would not be a candidate for taking long-term aspirin and clopidogrel and therefore she would not be an appropriate candidate for extensive coronary artery stenting. Medical therapy was recommended. She was evaluated at [facility] Emergency Department on 02/13/2019 with chest pain. EKG showed sinus rhythm at a rate of 69 beats minute with a right bundle branch block and left anterior fascicular block. Troponin was 0.044. Her d-dimer was elevated she underwent a chest CTA that was negative for pulmonary embolism. Her medications were adjusted and she was discharged for outpatient follow-up. She denies palpitations, near syncope, or syncopal episodes. She denies claudication issues. She states ongoing bilateral edema. She states when going from a sitting and standing she notes leg pain and fatigue. She denies orthopnea, PND, fever, chills, blood in urine, blood in stool, myalgia, or unexplainable fatigue. Her lightheadedness and dizziness is continual and is intermittent in regards to severity. Past Medical History Allergies/Adverse Reactions: Allergies adalimumab [From Humira] Allergy (Verified 04/28/19 15:18) Rash ciprofloxacin HCl [From Cipro] Allergy (Verified 04/28/19 15:18) Unknown doxazosin Allergy (Verified 04/28/19 15:18) Other hydroxyzine [From Vistaril] Allergy (Verified 04/28/19 15:18) Other latex Allergy (Verified 04/28/19 15:18) Rash levofloxacin [From Levaquin] Allergy (Verified 04/28/19 15:18) Unknown lisinopril Allergy (Verified 04/28/19 15:18) Other COUGH Methotrexate Analogues Allergy (Verified 04/28/19 15:18) Hives naproxen Allergy (Verified 04/28/19 15:18) Unknown potassium clavulanate [From Augmentin] Allergy (Verified 04/28/19 15:18) Unknown Sulfa (Sulfonamide Antibiotics) Allergy (Verified 04/28/19 15:18) Unknown amlodipine Adverse Reaction (Severe, Verified 04/28/19 15:18) edema haloperidol lactate [From Haldol] Adverse Reaction (Unknown, Verified 04/28/19 15:18) agitation amoxicillin trihydrate [From Augmentin] Adverse Reaction (Verified 04/28/19 15:18) Upset Stomach hydromorphone HCl [From Dilaudid] Adverse Reaction (Verified 04/28/19 15:18) Other HALLUCINATIONS hydroxychloroquine sulfate [From Plaquenil] Adverse Reaction (Verified 04/28/19 15:18) Other VISION ISSUES Home Medications: Ambulatory Orders Medication Instructions Recorded Multivit-Min/FA/Lycopen/Lutein 1 ea PO DAILY 04/01/15 [Centrum Silver Tablet] nitroglycerin 0.4 mg sublingual 0.4 mg SUBLINGUAL PRN PRN #25 tab 01/31/18 tablet Cholecalciferol (Vitamin D3) 5,000 unit PO DAILY 06/06/18 [Vitamin D3] Cyanocobalamin (Vitamin B-12) 1,000 mcg PO DAILY 06/06/18 [B-12] Vit C/E/Zn/Coppr/Lutein/Zeaxan 1 ea PO BID 06/06/18 [Preservision Areds 2 Softgel] atorvastatin 20 mg tablet 20 mg PO QHS 06/21/18 potassium chloride 10 mEq 10 meq PO QHS cap 06/21/18 capsule,extended release Brimonidine Tartrate/Timolol 1 drp EACH EYE BID 02/13/19 [Combigan Eye Drops] Latanoprost 1 drp EACH EYE QHS 02/13/19 isosorbide mononitrate 60 mg 60 mg PO DAILY tab 02/19/19 tablet,extended release 24 hr Metoprolol Tartrate [Lopressor 75 mg PO BID 03/20/19 (beta elena)] Ranolazine [Ranexa] 1,000 mg PO BID 03/20/19 Acetaminophen [Tylenol] 1,000 mg PO Q8H 04/28/19 Fluorometholone [Fml] 1 drp OP BID 04/28/19 Lidocaine 1 ea TOPICAL DAILY 04/28/19 furosemide 40 mg tablet 40 mg PO BID 04/28/19 Past Medical History (Chronic Problems): Chronic Problems (Last Reviewed 06/21/18 @ 14:11 by Nahid Hernandez MD) Iron deficiency anemia (Chronic) Chronic renal insufficiency (Chronic) Chronic diastolic (congestive) heart failure (Chronic) Essential (primary) hypertension (Chronic) Elevated troponin (Chronic) Atherosclerotic heart disease of [place] coronary artery without angina pectoris (Chronic) Hyperlipemia (Chronic) Surgical History: angioplasty, total hip arthroplasty - Bilateral, - - Carpal tunnel syndrome Psychiatric History: No pertinent psych hx 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 History Items: Cancer - breast, - Maternal Family History: Family History (Last Reviewed 07/22/18 @ 10:47 by Maribeth Pollack) Father No problems noted. History Items: Cancer - breast, - Lives: With Family Smoking Status: Never smoker Tobacco Use: Non-smoker Alcohol: None Drugs: None Review of Systems - Review of Systems General: Reports: Fatigue. Denies: Fever, Night Sweats HEENT: Denies: Vision Change Cardiovascular: Reports: Shortness of Breath, Shortness of Breath at Rest, Shortness of Breath with Exertion, Peripheral Edema. Denies: Chest Discomfort, Orthopnea, PND, Palpitations, Lightheadedness, Dizziness, Near Syncope, Syncope Respiratory: Denies: Cough, Sputum Production, Hemoptysis Gastrointestinal: Denies: Hematemesis, Hematochezia, Melena Genitourinary: Denies: Dysuria, Hematuria Muscoloskeletal: Denies: Myalgias Skin: Denies: Rash Neurological: Reports: Weakness. Denies: Dizziness Psychiatric: Denies: Anxiety Endocrine: Reports: Unexplained Weight Loss Hematologic/ Lymphatic: Reports: Anemia Subjectve: Pleasant but undernourished lady in no distress Objective: Vital Signs Temp Pulse Resp BP Pulse Ox 98.1 F 74 18 161/81 H 95 04/28/19 18:25 04/28/19 18:25 04/28/19 18:25 04/28/19 18:25 04/28/19 18:25 Oxygen Delivery Method Room Air Weight: 116 lb 2.938 oz Body Mass Index (BMI) 19.9 General: Awake, Alert, Oriented x 3 HEENT: PERRL, EOMI, Sclera Non Icteric Neck: Supple, Good ROM, No Lymph Node Enlargement Lungs: Diminished Mar[place] Bases Cardiovascular: Regular Rhythm, Normal S1, Normal S2, No Murmurs, No Rubs, No Gallops Vascular: No Carotid Bruits, Normal Femoral Pulses, Normal Radial Pulses, Normal Dorsalis Pedal Pulse, Normal Posterior Tibial Pulses Abdomen: Bowel Sounds Present, Soft, Non Tender, No HSM, No Organomegaly Extremities: No Cyanosis, No Clubbing, Bilateral Edema +2 Musculoskeletal: No Erythema Skin: No Rashes Lymphatic: No Lymph Node Enlargement Neurological: No Focal Motor or Sensory Deficit Psych/Mental Status: Appropriate 04/28/19 16:20: WBC 10.1, RBC 3.45 L, Hgb 11.3 L, Hct 37.5, MCV 108.7 H, MCH 32.8 H, MCHC 30.1 L, Plt Count 244, MPV 11.9, Immature Gran % (Auto) 0.800, Neut % (Auto) 70.3 H, Lymph % (Auto) 13.1 L, [place] % (Auto) 13.7 H, Eos % (Auto) 1.6, Baso % (Auto) 0.5, Absolute Neuts (auto) 7.1, Nucleated RBC % 0 04/28/19 16:20: Sodium 139, Potassium 5.0, Chloride 110 H, Carbon Dioxide 23.0, Anion Gap 6, BUN 57 H, Creatinine 2.25 H, Est GFR (MDRD) Af Amer 27 L, Est GFR (MDRD) Non-Af 22 L, BUN/Creatinine Ratio 25.3 H, Glucose 121 H, Calcium 9.5, Troponin I 0.086 H 04/28/19 16:20: B-Natriuretic Peptide > 5000.0 H 04/28/19 16:30: Urine Color Yellow, Urine Clarity Sl. Cloudy, Urine pH 6.0, Ur Specific [place] 1.010, Urine Protein 100 H, Urine Glucose (UA) Normal, Urine Ketones Negative, Urine Occult Blood Negative, Urine Nitrite Negative, Urine Bilirubin Negative, Urine Urobilinogen Normal, Ur Leukocyte Esterase 25 H, Urine RBC 0 SEEN, Urine WBC 0-5 SEEN Rhythm: EKG: Normal sinus rhythm with bifascicular block ECHO: Stress Test: Cardiac Cath: PCI: CT Surgery: Holter monitor: EPS: PPM: CXR: Chest CT Scan: Assessment/Plan 1. Heart failure with preserved ejection fraction She presents with progressive shortness of breath and pedal edema and has previously had known preserved ventricular systolic function by cardiac catheterization. I suspect that she is retaining fluid due to worsening renal failure. I do not think that she has progressive left ventricular systolic dysfunction. I would recommend trying to see whether we can diurese her with intravenous Lasix via IV continuous drip rather than intermittent bolus. Even though the studies have shown no significant difference I would prefer this approach for at least 24 hours. 2. Coronary artery disease She does appear to have stable coronary artery disease. She has not had any chest pain during this visit. She does have minimal troponin elevation but will continue to monitor the above. No acute EKG changes are noted. 3. Bifascicular block The above has been stable and I will not recommend we make any changes with regard to this. 4. Renal dysfunction She appears to have progressive renal dysfunction. It may be prudent to consult with the renal service to see whether they have any input, insight or advise. I did explain to the family that would continue diuresis her renal function may actually get worse. Thank you for allowing me to participate in the care of your patient. Please don't hesitate to call if any issues arise
[2019-04-28 19:23] LABS: Thyroid Stim Hormone (TSH) 2.68 uIU/mL (0.358-3.74)
[2019-04-28] MEDS: Furosemide 500 MG in Empty Viaflex 50 mL 1 EACH CONT INF (20:14)
[2019-04-28] MEDS: 0.9% Saline Lock 10 ML Syringe IV (21:28)
[2019-04-28] MEDS: Timolol 0.5% 5ML OPTH.BTL 1 DRP OPHTHALMIC (21:37)
[2019-04-28] MEDS: Latanoprost 0.005% 1 Bottle 1 DRP EACH EYE (21:38)
[2019-04-28] MEDS: BRIMONIDINE 0.2% 5ML BOTTLE 1 DRP EACH EYE (21:38)
[2019-04-28] MEDS: Atorvastatin Calcium 20 MG Tablet PO (21:41)
[2019-04-28] MEDS: Ranolazine 500 MG Tablet 1000 MG PO (21:42)
[2019-04-28] MEDS: Metoprolol Tartrate 50 MG Tablet 75 MG PO (21:42)
[2019-04-28] MEDS: Acetaminophen 500 MG Tablet 1000 MG PO (21:45)
[2019-04-28] MEDS: Miconazole Nitrate Cream 1 APPLIC TOPICAL (23:33)
[2019-04-29] VITALS (14 sets, daily range): BP systolic 125–149; BP diastolic 56–75; PULSE 61–73; RESP 12–16; TEMP 36.4–36.8; O2SAT 94–98
[2019-04-29 04:51] LABS: Absolute Lymphocyte Count 1.29 X10^3/uL (0.83-4.51); Absolute Neutrophil Count 6.4 X10^3/uL (2.0-7.7); Basophil# 0.04 X10^3/uL; Basophil% 0.4 % (0-1); Eosinophil# 0.15 X10^3/uL; Eosinophils% 1.6 % (0-5); Hematocrit 36.1 % (37-47); Lymphocyte # 1.29 X10^3/ul (4.0); Mean Corp Hgb Conc 30.5 g/dL (32-36); Mean Corpuscular Hgb 32.5 pg (27.0-32.0); Mean Corpuscular Volume 106.8 fL (81-99); Mean Platelet Vol. 11.6 fl (6.2-12.0); Monocyte# 1.25 X10^3/uL; Monocyte% 13.6 % (0-10); NRBC Flagged by Analyzer 0 % (0-5); Neutrophil # 6.42 X10^3/uL (2.7-7.7); Neutrophil % 69.7 % (47-70); POSITIVE MORPHOLOGY YES; Platelet Count 233 K/mm3 (150-450); RBC Distribution Width CV 23.1 % (11.6-14.6); RBC Distribution Width SD 91.6 fl (35.1-43.9); Red Blood Count 3.38 M/mm3 (4.2-5.4); White Blood Count 9.2 K/mm3 (4.4-11.0)
[2019-04-29 04:55] LABS: Differential Indicated SCAN CRITERIA MET
[2019-04-29 05:01] LABS: Anion Gap 6 (5-15); BUN 57 mg/dL (7-18); BUN/Creat Ratio 25.8 RATIO (10-20); Calcium,Total 9.2 mg/dL (8.5-10.1); Chloride 108 mmol/L (98-107); Creatinine, Serum 2.21 mg/dL (0.55-1.02); EST Glomerular Filtration Rate 23 mL/min (>60); Est Glom Filt Rate - Afr Amer 28 mL/min (>60); Estimated Creatinine Clearance 17.17 ml/min; Glucose 109 mg/dL (74-106); Potassium 4.6 mmol/L (3.5-5.1); Sodium Level 139 mmol/L (136-145)
[2019-04-29 05:15] LABS: Anisocytosis 2+; Platelet Estimate ADEQUATE (ADEQ)
[2019-04-29 05:16] LABS: Hypochromasia 1+; Macrocytosis 2+
[2019-04-29] MEDS: Acetaminophen 500 MG Tablet 1000 MG PO ×3 (05:19→21:29)
--- NOTE | 2019-04-29 05:55 | ECHOCS_ITS ---
Reason For Study: Heart Failure Procedure This was a 2D Doppler, Color Flow transthoracic echocardiogram. The study was technically difficult. Contrast injection was performed. Patient scanned supine due to pelvic fracture. Exam performed portable in patient room. Left Ventricle Normal LV size. The estimated ejection fraction is 20 %. Stage 1 diastolic dysfunction. Mid- anteroseptal : Akinetic. Mid-Anterior : Akinetic. Anterior [place] : Akinetic. Lateral [place] : Severely Hypokinetic. Infero-Basal: Hypokinetic. Lateral-Basal: Normal. Anterio-Basal: Normal. Mid-Lateral : Normal. The rest of the wall segments are hypokinetic. Right Ventricle Normal RV size. Normal systolic function. Atria Normal left atrium. Normal right atrium. Mitral Valve There is moderate mitral annular calcification. Moderate (2+) eccentric mitral valve insufficiency. Tricuspid Valve Normal tricuspid valve. Mild (1+) tricuspid valve insufficiency. Pulmonary artery systolic pressure is 36 mmHg. Aortic Valve Trisinus/trileaflet aortic valve. Mild focal aortic valve calcification. Mild (1+) aortic valve insufficiency. Pulmonic Valve The pulmonic valve is not well visualized. Great Vessels Calcified aortic root. The pulmonary artery is normal size. Plethoric inferior vena cava. Pericardium/Pleural No pericardial effusion. Moderate size left pleural effusion. MMode/2D Measurements & Calculations LVIDd: 3.9 cm IVSd: 1.3 cm LAV(MOD-bp): 38.4 ml LVIDs: 3.6 cm LVPWd: 1.1 cm LAV(MOD-bp) Indexed: 24.7 ml/m2 RVDd: 4.0 cm FS: 7.6 % LAV(MOD-sp2): 39.1 ml LAV(MOD-sp4): 39.6 ml SV(MOD-sp4): 42.3 ml SV(sp4-el): 42.5 ml LVAd ap4: 34.8 cm2 EDV(MOD-sp4): 123.7 ml EDV(sp4-el): 128.4 ml LVAs ap4: 27.2 cm2 ESV(MOD-sp4): 81.4 ml ESV(sp4-el): 85.9 ml EF(MOD-sp4): 34.2 % EF(sp4-el): 33.1 % LA A4 area: 15.9 cm2 RA A4 area: 12.9 cm2 Time Measurements MV dec time: 0.14 sec Doppler Measurements & Calculations MV E max oskar: 111.6 cm/sec Lat Peak E' Oskar: 4.9 cm/sec Med Peak E' Oskar: 2.5 cm/sec MV A max oskar: 118.6 cm/sec E/E' lat: 22.8 E/E' med: 44.3 MV E/A: 0.94 MV V2 max: 146.4 cm/sec MV P1/2t max oskar: 122.3 cm/sec Ao V2 max: 128.6 cm/sec MV max P.6 mmHg MV P1/2t: 85.4 msec Ao max P.6 mmHg MV V2 mean: 80.0 cm/sec MV dec slope: 419.3 cm/sec2 MV mean P.0 mmHg MVA(P1/2t): 2.6 cm2 MV V2 VTI: 41.9 cm AI max oskar: 349.4 cm/sec LV V1 max: 64.7 cm/sec MR max oskar: 522.0 cm/sec AI max P.8 mmHg LV V1 max P.7 mmHg MR max P.0 mmHg MR mean oskar: 379.6 cm/sec AI dec slope: 269.0 cm/sec2 MR mean P.6 mmHg AI P1/2t: 380.5 msec MR VTI: 208.3 cm PA V2 max: 62.6 cm/sec TR max oskar: 286.5 cm/sec TR max P.8 mmHg Interpretation Summary Normal LV size. The estimated ejection fraction is 20 %. Stage 1 diastolic dysfunction. Moderate (2+) eccentric mitral valve insufficiency. Pulmonary artery systolic pressure is 36 mmHg. Mild (1+) aortic valve insufficiency. Compared to the previous there is significant decline in the function. Contrast injection was performed. Ordering Physician: Marli Silva Referring Physician: Demarco Lopez Performed By: Calixto Carpio RCS
[2019-04-29] MEDS: Enoxaparin 30 MG/0.3 ML Syringe SC (08:22)
[2019-04-29] MEDS: Ranolazine 500 MG Tablet 1000 MG PO ×2 (08:23→21:29)
[2019-04-29] MEDS: Metoprolol Tartrate 50 MG Tablet 75 MG PO ×2 (08:24→21:40)
[2019-04-29] MEDS: Isosorbide Mononitrate 60 MG Tablet PO (08:24)
[2019-04-29] MEDS: Timolol 0.5% 5ML OPTH.BTL 1 DRP OPHTHALMIC ×2 (08:28→21:31)
[2019-04-29] MEDS: BRIMONIDINE 0.2% 5ML BOTTLE 1 DRP EACH EYE ×2 (08:29→21:49)
--- NOTE | 2019-04-29 08:30 | PN.CARD_ITS ---
Subjectve: Patient seen and evaluated. Appears to be doing better this morning legs are less wrinkled. Objective: Vital Signs Temp Pulse Resp BP Pulse Ox 98.0 F 65 14 146/63 H 97 04/29/19 06:00 04/29/19 07:43 04/29/19 06:00 04/29/19 06:00 04/29/19 06:00 Oxygen Delivery Method Room Air Weight: 114 lb 10.246 oz Body Mass Index (BMI) 19.9 Intake and Output for Last 24 Hours 04/27/19 04/28/19 04/29/19 23:59 23:59 23:59 Intake Total 198.56 / 198.56 Output Total 750 / 750 Balance -551.44 / -551.44 General: Awake, Alert, Oriented x 3 HEENT: PERRL, EOMI, Sclera Non Icteric Neck: Supple, Good ROM, No Lymph Node Enlargement Lungs: Clear to auscultation Cardiovascular: Regular Rhythm, Normal S1, Normal S2, No Murmurs, No Rubs, No Gallops Vascular: No Carotid Bruits, Normal Femoral Pulses, Normal Radial Pulses, Normal Dorsalis Pedal Pulse, Normal Posterior Tibial Pulses Abdomen: Bowel Sounds Present, Soft, Non Tender, No HSM, No Organomegaly Extremities: No Cyanosis, No Clubbing, Bilateral Edema +1 Musculoskeletal: No Erythema Skin: No Rashes Lymphatic: No Lymph Node Enlargement Neurological: No Focal Motor or Sensory Deficit Psych/Mental Status: Appropriate 04/28/19 16:20: WBC 10.1, RBC 3.45 L, Hgb 11.3 L, Hct 37.5, MCV 108.7 H, MCH 32.8 H, MCHC 30.1 L, Plt Count 244, MPV 11.9, Immature Gran % (Auto) 0.800, Neut % (Auto) 70.3 H, Lymph % (Auto) 13.1 L, [place] % (Auto) 13.7 H, Eos % (Auto) 1.6, Baso % (Auto) 0.5, Absolute Neuts (auto) 7.1, Nucleated RBC % 0 04/28/19 16:20: Sodium 139, Potassium 5.0, Chloride 110 H, Carbon Dioxide 23.0, Anion Gap 6, BUN 57 H, Creatinine 2.25 H, Est GFR (MDRD) Af Amer 27 L, Est GFR (MDRD) Non-Af 22 L, BUN/Creatinine Ratio 25.3 H, Glucose 121 H, Calcium 9.5, Troponin I 0.086 H 04/28/19 16:20: B-Natriuretic Peptide > 5000.0 H 04/28/19 16:30: Urine Color Yellow, Urine Clarity Sl. Cloudy, Urine pH 6.0, Ur Specific [place] 1.010, Urine Protein 100 H, Urine Glucose (UA) Normal, Urine Ketones Negative, Urine Occult Blood Negative, Urine Nitrite Negative, Urine Bilirubin Negative, Urine Urobilinogen Normal, Ur Leukocyte Esterase 25 H, Urine RBC 0 SEEN, Urine WBC 0-5 SEEN 04/28/19 21:30: Troponin I 0.079 H 04/29/19 00:30: Troponin I 0.086 H 04/29/19 04:40: WBC 9.2, RBC 3.38 L, Hgb 11.0 L, Hct 36.1 L, MCV 106.8 H, MCH 32.5 H, MCHC 30.5 L, Plt Count 233, MPV 11.6, Immature Gran % (Auto) 0.700, Neut % (Auto) 69.7, Lymph % (Auto) 14.0 L, [place] % (Auto) 13.6 H, Eos % (Auto) 1.6, Baso % (Auto) 0.4, Absolute Neuts (auto) 6.4, Nucleated RBC % 0 04/29/19 04:40: Sodium 139, Potassium 4.6, Chloride 108 H, Carbon Dioxide 25.0, Anion Gap 6, BUN 57 H, Creatinine 2.21 H, Est GFR (MDRD) Af Amer 28 L, Est GFR (MDRD) Non-Af 23 L, BUN/Creatinine Ratio 25.8 H, Glucose 109 H, Calcium 9.2 Rhythm: EKG: ECHO: Stress Test: Cardiac Cath: PCI: CT Surgery: Holter monitor: EPS: PPM: CXR: Chest CT Scan: Medical Necessity - Tobacco Use Smoking Status: Never smoker Tobacco Use: Non-smoker Assessment/Plan 1. Heart failure with preserved ejection fraction * She presents with progressive shortness of breath and pedal edema and has previously had known preserved ventricular systolic function by cardiac catheterization. I suspect that she is retaining fluid due to worsening renal failure. I do not think that she has progressive left ventricular systolic dysfunction. I would recommend trying to see whether we can diurese her with intravenous Lasix via IV continuous drip rather than intermittent bolus. Even though the studies have shown no significant difference I would prefer this approach for at least 24 hours. * She appears to be doing better today. 2. Coronary artery disease * She does appear to have stable coronary artery disease. She has not had any c hest pain during this visit. She does have minimal troponin elevation but will continue to monitor the above. No acute EKG changes are noted. * 3. Bifascicular block * The above has been stable and I will not recommend we make any changes with regard to this. * 4. Renal dysfunction * She appears to have progressive renal dysfunction. It may be prudent to consult with the renal service to see whether they have any input, insight or advise. * I did explain to the family that would continue diuresis her renal function may actually get worse. Fortunately her renal function has held over the last 24 hours. * Thank you for allowing me to participate in the care of your patient. Please don't hesitate to call if any issues arise
--- NOTE | 2019-04-29 10:22 | PN_ITS ---
Patient Problems: Active and Suspected Problems (Last Reviewed 06/21/18 @ 14:11 by Nahid Hernandez MD) Pleural effusion, left (Acute) Dyspnea (Acute) Lower extremity edema (Acute) Reason for Visit: Patient shortness of breath is better than yesterday but is still dyspnea on minimal exertion. Denies any chest pain Objective: Pulse ox 94% on room air. No tachypnea. Vitals/I&O's: Vital Signs Temp Pulse Resp BP Pulse Ox 98.0 F 66 14 146/63 H 97 04/29/19 06:00 04/29/19 06:00 04/29/19 06:00 04/29/19 06:00 04/29/19 06:00 Oxygen Delivery Method Room Air Weight: 114 lb 10.246 oz Body Mass Index (BMI) 19.9 Intake and Output for Last 24 Hours 04/27/19 04/28/19 04/29/19 23:59 23:59 23:59 Intake Total 198.56 / 198.56 Output Total 750 / 750 Balance -551.44 / -551.44 General: Alert, Oriented x3, Cooperative HEENT: Atraumatic, PERRLA, EOMI, Normocephalic Neck: Supple, No JVD, Negative Carotid Bruits Lungs: Diminished - Air entry severely diminished, Rales, Short of Breath Cardiovascular: Regular rate, Regular Rhythm, Normal S1, Normal S2, Murmur - With murmur present over left lower sternal border Abdomen: Bowel Sounds Present, Soft, Non Tender, Non-Distended Extremities: Capillary Refill Less than 3 Seconds, Edema Skin: - - Bilateral lower legs weeping with lymphedema Musculoskeletal: No Tenderness to Palpation of Joints or Extremities, Arthritic Changes Neurological: Deep Tendon Reflexes 2+/4 and Symmetrical, Neuro grossly intact Psych/Mental Status: Normal Affect, Appropriate Laboratory Results 04/28/19 16:20: WBC 10.1, RBC 3.45 L, Hgb 11.3 L, Hct 37.5, MCV 108.7 H, MCH 32.8 H, MCHC 30.1 L, RDW Std Deviation 94.8 H, RDW Coeff of [place] 23.4 H, Plt Count 244, MPV 11.9, Immature Gran % (Auto) 0.800, Neut % (Auto) 70.3 H, Lymph % (Auto) 13.1 L, [place] % (Auto) 13.7 H, Eos % (Auto) 1.6, Baso % (Auto) 0.5, Absolute Neuts (auto) 7.1, Absolute Lymphs (auto) 1.32, Nucleated RBC % 0, Plt M orphology Comment Not Reportable, RBC Morphology N CHROM, Anisocytosis 2+ 04/28/19 16:20: Sodium 139, Potassium 5.0, Chloride 110 H, Carbon Dioxide 23.0, Anion Gap 6, BUN 57 H, Creatinine 2.25 H, Estim Creat Clear Calc 16.84, Est GFR (MDRD) Af Amer 27 L, Est GFR (MDRD) Non-Af 22 L, BUN/Creatinine Ratio 25.3 H, Glucose 121 H, Calcium 9.5, Troponin I 0.086 H 04/28/19 16:20: B-Natriuretic Peptide > 5000.0 H 04/28/19 16:20: TSH 2.68 04/28/19 16:30: Urine Color Yellow, Urine Clarity Sl. Cloudy, Urine pH 6.0, Ur Specific [place] 1.010, Urine Protein 100 H, Urine Glucose (UA) Normal, Urine Ketones Negative, Urine Occult Blood Negative, Urine Nitrite Negative, Urine Bilirubin Negative, Urine Urobilinogen Normal, Ur Leukocyte Esterase 25 H, Urine RBC 0 SEEN, Urine WBC 0-5 SEEN, Ur Squamous Epith Cells 0-5 SEEN, Urine Bacteria 0 SEEN, Urine Mucus 0 SEEN 04/28/19 21:30: Troponin I 0.079 H 04/29/19 00:30: Troponin I 0.086 H 04/29/19 04:40: WBC 9.2, RBC 3.38 L, Hgb 11.0 L, Hct 36.1 L, MCV 106.8 H, MCH 32.5 H, MCHC 30.5 L, RDW Std Deviation 91.6 H, RDW Coeff of Myke 23.1 H, Plt Count 233, MPV 11.6, Immature Gran % (Auto) 0.700, Neut % (Auto) 69.7, Lymph % (Auto) 14.0 L, [place] % (Auto) 13.6 H, Eos % (Auto) 1.6, Baso % (Auto) 0.4, Absolute Neuts (auto) 6.4, Absolute Lymphs (auto) 1.29, Nucleated RBC % 0, Platelet Estimate ADEQUATE, Hypochromasia 1+, Anisocytosis 2+, Macrocytosis 2+ 04/29/19 04:40: Sodium 139, Potassium 4.6, Chloride 108 H, Carbon Dioxide 25.0, Anion Gap 6, BUN 57 H, Creatinine 2.21 H, Estim Creat Clear Calc 17.17, Est GFR (MDRD) Af Amer 28 L, Est GFR (MDRD) Non-Af 23 L, BUN/Creatinine Ratio 25.8 H, Glucose 109 H, Calcium 9.2 Current Medications Acetaminophen (Tylenol) 1,000 mg PO Q8 [facility] Last Admin: 04/29/19 05:19 Dose: 1,000 mg Documented by: Albuterol Sulfate (Ventolin Aerosols) 2.5 mg INHALATION Q2H PRN PRN PRN Reason: SOB/Wheezing Atorvastatin Calcium (Lipitor) 20 mg PO QHS [facility] Last Admin: 04/28/19 21:41 Dose: 20 mg Documented by: Brimonidine Tartrate (Brimonidine 0.2% 5ml Bottle) 1 drop EACH EYE BID [facility] Last Admin: 04/28/19 21:38 Dose: 1 drop Documented by: Dextrose (D50w Syringe) 0 gm IV X1 PRN; Protocol PRN Reason: Hypoglycemia Enoxaparin Sodium (Lovenox) 30 mg SC DAILY [facility] Fluorometholone (Flarex) 1 drop OP BID [facility] Glucagon () 1 mg IM .X1 PRN PRN Reason: Hypoglycemia Furosemide 500 mg/ N/A 50 mls @ 2 mls/hr CONT INF .Q25H [facility] Last Infusion: 04/29/19 05:31 Dose: 20 mg/hr, 2 mls/hr Documented by: Isosorbide Mononitrate (Imdur) 60 mg PO DAILY [facility] Latanoprost (Xalatan Opthalmic) 1 drop EACH EYE QHS [facility] Last Admin: 04/28/19 21:38 Dose: 1 drop Documented by: Metoprolol Tartrate (Lopressor (Beta Brandyn)) 75 mg PO BID [facility] Last Admin: 04/28/19 21:42 Dose: 75 mg Documented by: Miconazole Nitrate (Monistat-Derm, Micatin) 1 applic TOPICAL BID [facility]; Protocol Last Admin: 04/28/19 23:33 Dose: 1 applicatio Documented by: Nitroglycerin (Nitrostat) 0.4 mg SUBLINGUAL Q5M PRN PRN Reason: CARDIAC/CHEST PAIN Ondansetron HCl (Zofran) 4 mg IV Q8H PRN PRN PRN Reason: NAUSEA/VOMITING Potassium Chloride (K-Dur) 10 meq PO QHS [facility] Last Admin: 04/28/19 21:41 Dose: 10 meq Documented by: Ranolazine (Ranexa) 1,000 mg PO BID [facility] Last Admin: 04/28/19 21:42 Dose: 1,000 mg Documented by: Sodium Chloride () 10 - 40 ml IV UD PRN PRN Reason: SALINE FLUSH Last Admin: 04/28/19 21:28 Dose: 40 ml Documented by: Timolol Maleate (Timoptic) 1 drop OPHTHALMIC BID [facility] Last Admin: 04/28/19 21:37 Dose: 1 drop Documented by: STROKE Vital Signs/Narrative: Vital Signs Temp Pulse Resp BP Pulse Ox 04/29/19 06:00 98.0 F 66 14 146/63 H 97 Medical Necessity - Tobacco Use Smoking Status: Never smoker Tobacco Use: Non-smoker Assessment/Plan All Active Problems (Last Reviewed 06/21/18 @ 14:11 by Nahid Hernandez MD) Pleural effusion, left (Acute) Dyspnea (Acute) Lower extremity edema (Acute) Scalp laceration (Acute) Recurrent falls (Acute) Closed fracture of left inferior pubic ramus (Acute) Injury of left shoulder and upper arm (Acute) History of coronary artery stent placement (Resolved 05/21/09) ARF (acute renal failure) (Resolved) Fracture of femoral neck, left (Resolved) Hypertensive emergency (Resolved) Pyelonephritis, acute (Resolved) This is a 78-year-old female with multiple comorbidities including coronary artery disease, chronic heart failure, CKD stage IV was admitted with progressive worsening of shortness of breath, lower extremity edema, elevated BNP more than 50,000, chest x-ray findings of left pleural effusion suggestive of acute on chronic heart failure with preserved EF. 1. Acute on chronic heart failure with preserved ejection fraction: The patient is being admitted in PCU. EKG reviewed. No normal sinus rhythm at 69 bpm with bifascicular block, RBBB plus LAFB. Patient was seen by van owner operator. Started on Lasix drip. Other core measures of heart failure followed including fluid restriction, strict input and output and daily weight monitoring. 2D echo 2014: EF of 65% with stage II diastolic dysfunction and no regional wall motion abnormalities noted. No pericardial effusion RVSP was 32 mmHg. The echo done. 2. Coronary artery disease with indeterminate troponins: Serial troponins are mildly elevated 0.4?3. Flat and indeterminate. Probably secondary to fluid overload from heart failure.Currently on Imdur and metoprolol and ranolazine.. Sublingual nitroglycerin as needed. * Patient had cardiac cath in 05/2018. Cath findings normal left main coronary artery and moderate luminal irregularities up to 50% in the LAD and moderate luminal irregularities in the circumflex and first diagonal arteries as well. She had 80% stenosis in the right coronary artery with an in-stent 95% stenosis and collateral flow from left to right. At that time, she has not had a candidate for PCI because of severe anemia not taking for long-term aspirin and Plavix. And medical therapy was recommended. 3. CKD stage IV: Patient baseline creatinine is around 2.25-2.5. As patient is on IV diuresis and expected creatinine to go up therefore [place] school bus monitor was consulted who they have seen in the past. 4. History of Sjogren's disease and rheumatoid arthritis. * stable. 5. Hyperlipidemia: on statin 6. Recent history of right hip fracture * Managed conservatively. Currently stable. Got out of usp 2 weeks ago. * Consult PT OT. DVT prophylaxis: Lovenox Code Visit Inpatient E&M: 39655 Subs Hosp L3
--- NOTE | 2019-04-29 11:45 | CASEMGMT ---
RN IMAN Assessment Presentation: CHF exacerbation Intro role of CM to patient and her son. Pt is awake, alert and able to participate in assessment. Reviewed PT/OT notes with pt. Discussed returning to [facility] or other SNF for rehab, vs returning home with [facility]. Pt wishes to return home if possible. Pt mentioned more than once that she has to rely on her children. Briefly discussed Assisted Living options with patient for future reference. PCP: Dr Lopez Specialists: Dr Azul--oncologist, Dr Hernandez--net development manager. Preferred Pharmacy: [facility] Insurance: [employer] [facility] Prescription Benefit: Yes LNOK: Daughter and sons LW/DPOA: Document front of chart. Daughter Anaya Bush is listed as DPOA- name of Next of Kin on [facility] [employer] is Anaya Guzman- same person. Living Arrangements: Lives alone. Son lives next door. Son, dtr, and a grandson checks on her daily and assist with any needs. DME: walker, cane wheel chair, raised toilet seat, shower chair, grab bars, walk in shower. Home Health/SNF: recent stay @ [facility]. [facility]- RN CM called to verify current services are RN, PT/OT aide. Pt DC goal: home DC PLAN: anticipate home with HHC and family support. Continued review of PT/OT notes if SNF is recommended. Del PAREKHN RN ACM
--- NOTE | 2019-04-29 11:54 | CON.PCM_ITS ---
Consultation - Renal PCP/ Referring MD: Requesting physician: [] Primary care physician: Demarco Lopez MD Reason for Consultation:: ckd - History of Present Illness History of Present Illness: The patient is a 78 year old F w pmh of CKD and as below who presented with a chief complaint of gradually worsening shortness of breath and lower extremity edema. The patient was recently discharged from a long term after she compl eted rehab. She also had orthopnea and initially had some burning with urination but that resolved. She states she was compliant with her Lasix. She denies nausea vomiting diarrhea hematuria. Her creatinine is in the low to 2 up to 2.5 range at baseline and she sees Dr. Nielsen in nephrology. She feels much better and she was undergoing physical therapy when she was seen. She states her shortness of breath resolved. She also states that her lower extremity edema is much improved. She has no other complaints. - Allergies Allergies: Allergies adalimumab [From Humira] Allergy (Verified 04/28/19 15:18) Rash ciprofloxacin HCl [From Cipro] Allergy (Verified 04/28/19 15:18) Unknown doxazosin Allergy (Verified 04/28/19 15:18) Other hydroxyzine [From Vistaril] Allergy (Verified 04/28/19 15:18) Other latex Allergy (Verified 04/28/19 15:18) Rash levofloxacin [From Levaquin] Allergy (Verified 04/28/19 15:18) Unknown lisinopril Allergy (Verified 04/28/19 15:18) Other COUGH Methotrexate Analogues Allergy (Verified 04/28/19 15:18) Hives naproxen Allergy (Verified 04/28/19 15:18) Unknown potassium clavulanate [From Augmentin] Allergy (Verified 04/28/19 15:18) Unknown Sulfa (Sulfonamide Antibiotics) Allergy (Verified 04/28/19 15:18) Unknown amlodipine Adverse Reaction (Severe, Verified 04/28/19 15:18) edema haloperidol lactate [From Haldol] Adverse Reaction (Unknown, Verified 04/28/19 15:18) agitation amoxicillin trihydrate [From Augmentin] Adverse Reaction (Verified 04/28/19 15:18) Upset Stomach hydromorphone HCl [From Dilaudid] Adverse Reaction (Verified 04/28/19 15:18) Other HALLUCINATIONS hydroxychloroquine sulfate [From Plaquenil] Adverse Reaction (Verified 04/28/19 15:18) Other VISION ISSUES - Current Medications Current Medications: Current Medications Acetaminophen (Tylenol) 1,000 mg PO Q8 [facility] Last Admin: 04/29/19 05:19 Dose: 1,000 mg Documented by: Albuterol Sulfate (Ventolin Aerosols) 2.5 mg INHALATION Q2H PRN PRN PRN Reason: SOB/Wheezing Atorvastatin Calcium (Lipitor) 20 mg PO QHS [facility] Last Admin: 04/28/19 21:41 Dose: 20 mg Documented by: Brimonidine Tartrate (Brimonidine 0.2% 5ml Bottle) 1 drop EACH EYE BID [facility] Last Admin: 04/29/19 08:29 Dose: 1 drop Documented by: Dextrose (D50w Syringe) 0 gm IV X1 PRN; Protocol PRN Reason: Hypoglycemia Enoxaparin Sodium (Lovenox) 30 mg SC DAILY [facility] Last Admin: 04/29/19 08:22 Dose: 30 mg Documented by: Fluorometholone (Flarex) 1 drop OP BID [facility] Glucagon () 1 mg IM .X1 PRN PRN Reason: Hypoglycemia Furosemide 500 mg/ N/A 50 mls @ 2 mls/hr CONT INF .Q25H [facility] Last Infusion: 04/29/19 05:31 Dose: 20 mg/hr, 2 mls/hr Documented by: Isosorbide Mononitrate (Imdur) 60 mg PO DAILY [facility] Last Admin: 04/29/19 08:24 Dose: 60 mg Documented by: Latanoprost (Xalatan Opthalmic) 1 drop EACH EYE QHS [facility] Last Admin: 04/28/19 21:38 Dose: 1 drop Documented by: Metoprolol Tartrate (Lopressor (Beta Brandyn)) 75 mg PO BID [facility] Last Admin: 04/29/19 08:24 Dose: 75 mg Documented by: Miconazole Nitrate (Monistat-Derm, Micatin) 1 applic TOPICAL BID [facility]; Protocol Last Admin: 04/28/19 23:33 Dose: 1 applicatio Documented by: Nitroglycerin (Nitrostat) 0.4 mg SUBLINGUAL Q5M PRN PRN Reason: CARDIAC/CHEST PAIN Nutritional Formula (Lactose Free) (Ensure Enlive) 120 ml PO DAILY [facility] Ondansetron HCl (Zofran) 4 mg IV Q8H PRN PRN PRN Reason: NAUSEA/VOMITING Potassium Chloride (K-Dur) 10 meq PO QHS [facility] Last Admin: 04/28/19 21:41 Dose: 10 meq Documented by: Ranolazine (Ranexa) 1,000 mg PO BID [facility] Last Admin: 04/29/19 08:23 Dose: 1,000 mg Documented by: Sodium Chloride () 10 - 40 ml IV UD PRN PRN Reason: SALINE FLUSH Last Admin: 04/28/19 21:28 Dose: 40 ml Documented by: Timolol Maleate (Timoptic) 1 drop OPHTHALMIC BID [facility] Last Admin: 04/29/19 08:28 Dose: 1 drop Documented by: - Past Medical History Past Medical History (Chronic Problems): Chronic Problems (Last Reviewed 06/21/18 @ 14:11 by Nahid Hernandez MD) Acute exacerbation of CHF (congestive heart failure) (Chronic) Iron deficiency anemia (Chronic) Chronic renal insufficiency (Chronic) Chronic diastolic (congestive) heart failure (Chronic) Essential (primary) hypertension (Chronic) Elevated troponin (Chronic) Atherosclerotic heart disease of [place] coronary artery without angina pectoris (Chronic) Hyperlipemia (Chronic) - Past Surgical History Surgical History: angioplasty, total hip arthroplasty - Bilateral, - - Carpal tunnel syndrome - Social History Smoking Status: Never smoker Alcohol: None Drugs: None - Family History Paternal Family History: Family History (Last Reviewed 07/22/18 @ 10:47 by Maribeth Pollack) Father No problems noted. History Items: Cancer - breast, - Maternal Family History: Family History (Last Reviewed 07/22/18 @ 10:47 by Maribeth Pollack) Father No problems noted. History Items: Cancer - breast, - Review of Systems Eyes: Reports: - - Review of systems otherwise essentially negative unless noted in the history of present illness. Patient Problems: Active and Suspected Problems (Last Reviewed 06/21/18 @ 14:11 by Nahid Hernandez MD) Pleural effusion, left (Acute) Dyspnea (Acute) Lower extremity edema (Acute) - Physical Exam Vitals/I&O's: Vital Signs Temp Pulse Resp BP Pulse Ox 97.6 F L 66 12 149/64 H 98 04/29/19 10:00 04/29/19 10:00 04/29/19 10:00 04/29/19 10:00 04/29/19 10:00 Oxygen Delivery Method Room Air Weight: 52 kg Body Mass Index (BMI) 19.9 Intake and Output for Last 24 Hours 04/27/19 04/28/19 04/29/19 23:59 23:59 23:59 Intake Total 198.56 / 198.56 Output Total 750 / 750 Balance -551.44 / -551.44 General: Alert, Oriented x3, Cooperative HEENT: Atraumatic, PERRLA, EOMI, Normocephalic Neck: Supple, No JVD, Negative Carotid Bruits Lungs: Clear to auscultation, Normal air movement Cardiovascular: Regular rate, No murmurs Abdomen: Bowel Sounds Present, Soft, Non Tender Extremities: Capillary Refill Less than 3 Seconds, - - Lower extremity edema pretibial bilaterally Jose wraps in place. She has a Port-A-Cath left upper chest accessed with needles. Skin: No rashes, No breakdown Musculoskeletal: No Tenderness to Palpation of Joints or Extremities Neurological: Cranial nerves II-XII grossly intact Psych/Mental Status: Normal Affect, Appropriate Laboratory Results 04/28/19 16:20: WBC 10.1, RBC 3.45 L, Hgb 11.3 L, Hct 37.5, MCV 108.7 H, MCH 32.8 H, MCHC 30.1 L, RDW Std Deviation 94.8 H, RDW Coeff of Myke 23.4 H, Plt Count 244, MPV 11.9, Immature Gran % (Auto) 0.800, Neut % (Auto) 70.3 H, Lymph % (Auto) 13.1 L, [place] % (Auto) 13.7 H, Eos % (Auto) 1.6, Baso % (Auto) 0.5, Absolute Neuts (auto) 7.1, Absolute Lymphs (auto) 1.32, Nucleated RBC % 0, Plt Morphology Comment Not Reportable, RBC Morphology N CHROM, Anisocytosis 2+ 04/28/19 16:20: Sodium 139, Potassium 5.0, Chloride 110 H, Carbon Dioxide 23.0, Anion Gap 6, BUN 57 H, Creatinine 2.25 H, Estim Creat Clear Calc 16.84, Est GFR (MDRD) Af Amer 27 L, Est GFR (MDRD) Non-Af 22 L, BUN/Creatinine Ratio 25.3 H, Glucose 121 H, Calcium 9.5, Troponin I 0.086 H 04/28/19 16:20: B-Natriuretic Peptide > 5000.0 H 04/28/19 16:20: TSH 2.68 04/28/19 16:30: Urine Color Yellow, Urine Clarity Sl. Cloudy, Urine pH 6.0, Ur Specific [place] 1.010, Urine Protein 100 H, Urine Glucose (UA) Normal, Urine Ketones Negative, Urine Occult Blood Negative, Urine Nitrite Negative, Urine Bilirubin Negative, Urine Urobilinogen Normal, Ur Leukocyte Esterase 25 H, Urine RBC 0 SEEN, Urine WBC 0-5 SEEN, Ur Squamous Epith Cells 0-5 SEEN, Urine Bacteria 0 SEEN, Urine Mucus 0 SEEN 04/28/19 21:30: Troponin I 0.079 H 04/29/19 00:30: Troponin I 0.086 H 04/29/19 04:40: WBC 9.2, RBC 3.38 L, Hgb 11.0 L, Hct 36.1 L, MCV 106.8 H, MCH 32.5 H, MCHC 30.5 L, RDW Std Deviation 91.6 H, RDW Coeff of Myke 23.1 H, Plt Count 233, MPV 11.6, Immature Gran % (Auto) 0.700, Neut % (Auto) 69.7, Lymph % (Auto) 14.0 L, [place] % (Auto) 13.6 H, Eos % (Auto) 1.6, Baso % (Auto) 0.4, Absolute Neuts (auto) 6.4, Absolute Lymphs (auto) 1.29, Nucleated RBC % 0, Platelet Estimate ADEQUATE, Hypochromasia 1+, Anisocytosis 2+, Macrocytosis 2+ 04/29/19 04:40: Sodium 139, Potassium 4.6, Chloride 108 H, Carbon Dioxide 25.0, Anion Gap 6, BUN 57 H, Creatinine 2.21 H, Estim Creat Clear Calc 17.17, Est GFR (MDRD) Af Amer 28 L, Est GFR (MDRD) Non-Af 23 L, BUN/Creatinine Ratio 25.8 H, Glucose 109 H, Calcium 9.2 Current Medications Acetaminophen (Tylenol) 1,000 mg PO Q8 [facility] Last Admin: 04/29/19 05:19 Dose: 1,000 mg Documented by: Albuterol Sulfate (Ventolin Aerosols) 2.5 mg INHALATION Q2H PRN PRN PRN Reason: SOB/Wheezing Atorvastatin Calcium (Lipitor) 20 mg PO QHS [facility] Last Admin: 04/28/19 21:41 Dose: 20 mg Documented by: Brimonidine Tartrate (Brimonidine 0.2% 5ml Bottle) 1 drop EACH EYE BID [facility] Last Admin: 04/29/19 08:29 Dose: 1 drop Documented by: Dextrose (D50w Syringe) 0 gm IV X1 PRN; Protocol PRN Reason: Hypoglycemia Enoxaparin Sodium (Lovenox) 30 mg SC DAILY [facility] Last Admin: 04/29/19 08:22 Dose: 30 mg Documented by: Fluorometholone (Flarex) 1 drop OP BID [facility] Glucagon () 1 mg IM .X1 PRN PRN Reason: Hypoglycemia Furosemide 500 mg/ N/A 50 mls @ 2 mls/hr CONT INF .Q25H [facility] Last Infusion: 04/29/19 05:31 Dose: 20 mg/hr, 2 mls/hr Documented by: Isosorbide Mononitrate (Imdur) 60 mg PO DAILY [facility] Last Admin: 04/29/19 08:24 Dose: 60 mg Documented by: Latanoprost (Xalatan Opthalmic) 1 drop EACH EYE QHS [facility] Last Admin: 04/28/19 21:38 Dose: 1 drop Documented by: Metoprolol Tartrate (Lopressor (Beta Brandyn)) 75 mg PO BID [facility] Last Admin: 04/29/19 08:24 Dose: 75 mg Documented by: Miconazole Nitrate (Monistat-Derm, Micatin) 1 applic TOPICAL BID [facility]; Protocol Last Admin: 04/28/19 23:33 Dose: 1 applicatio Documented by: Nitroglycerin (Nitrostat) 0.4 mg SUBLINGUAL Q5M PRN PRN Reason: CARDIAC/CHEST PAIN Nutritional Formula (Lactose Free) (Ensure Enlive) 120 ml PO DAILY [facility] Ondansetron HCl (Zofran) 4 mg IV Q8H PRN PRN PRN Reason: NAUSEA/VOMITING Potassium Chloride (K-Dur) 10 meq PO QHS [facility] Last Admin: 04/28/19 21:41 Dose: 10 meq Documented by: Ranolazine (Ranexa) 1,000 mg PO BID [facility] Last Admin: 04/29/19 08:23 Dose: 1,000 mg Documented by: Sodium Chloride () 10 - 40 ml IV UD PRN PRN Reason: SALINE FLUSH Last Admin: 04/28/19 21:28 Dose: 40 ml Documented by: Timolol Maleate (Timoptic) 1 drop OPHTHALMIC BID [facility] Last Admin: 04/29/19 08:28 Dose: 1 drop Documented by: Assessment/Plan All Active Problems (Last Reviewed 06/21/18 @ 14:11 by Nahid Hernandez MD) Pleural effusion, left (Acute) Dyspnea (Acute) Lower extremity edema (Acute) Scalp laceration (Acute) Recurrent falls (Acute) Closed fracture of left inferior pubic ramus (Acute) Injury of left shoulder and upper arm (Acute) History of coronary artery stent placement (Resolved 05/21/09) ARF (acute renal failure) (Resolved) Fracture of femoral neck, left (Resolved) Hypertensive emergency (Resolved) Pyelonephritis, acute (Resolved) CKD baseline creatinine 2-2.5 LE edema HF Patient is currently on a Lasix drip. Creatinine is at 2.2 which is consistent with her baseline. Can continue Lasix drip for now from nephrology standpoint. Blood pressure is acceptable. Avoid nephrotoxins and overdiuresis The above assessment and plan was discussed at length with the patient who voiced understanding and agrees to proceed with the plan as outlined above. She was given the opportunity to ask questions and stated that those were answered to her satisfaction. Thank you very much for allowing me to participate in the care of this patient. Please do not hesitate to call if you have any questions or concerns.
[2019-04-29] MEDS: Furosemide 500 MG in Empty Viaflex 50 mL 1 EACH CONT INF (12:05)
[2019-04-29] MEDS: FLUOROMETHOLONE ACETATE 1 DRP OP (12:08)
--- NOTE | 2019-04-29 15:21 | CASEMGMT ---
Family provided copy of living will and health care POA and they are on pt chart. NISHANT Coleman
--- NOTE | 2019-04-29 16:42 | CHAPLAIN ---
Type of Pastoral Visit _x__ Initial Visit ___ Follow-up Visit ___ On-call Visit ___ General Patient Visit ___ Spiritual Assessment ___ Family Conference ___ Bereavement ___ Rapid Response ___ Code Blue ___ Other (describe below) Pastoral Care Referral From _x__ Patient ___ Family ___ Nurse ___ Physician ___ Hyperbaric Welder Diver ___ Drapery Rod Assembler ___ Other (describe below) Sacrament/Intervention _x__ Active listening ___ Anointing ___ Confucianism ___ Bereavement ___ Communion ___ Miladys exploration ___ _x__ Life review _x__ Prayer ___ Reconciliation ___ Sacrament of Sick ___ Supportive presence ___ Wedding ___ Other (describe below) Pastoral Comments
[2019-04-29] MEDS: Atorvastatin Calcium 20 MG Tablet PO (21:29)
[2019-04-29] MEDS: Latanoprost 0.005% 1 Bottle 1 DRP EACH EYE (21:31)
[2019-04-29] MEDS: LIFITEGRAST 1 EACH DROPERETTE OP (23:41)
[2019-04-30] VITALS (14 sets, daily range): BP systolic 128–152; BP diastolic 61–79; PULSE 61–72; RESP 16–18; TEMP 36.6–36.9; O2SAT 94–100
[2019-04-30] MEDS: Acetaminophen 500 MG Tablet 1000 MG PO ×3 (05:28→21:16)
[2019-04-30] MEDS: LIFITEGRAST 1 EACH DROPERETTE OP ×2 (09:58→21:18)
[2019-04-30] MEDS: BRIMONIDINE 0.2% 5ML BOTTLE 1 DRP EACH EYE ×2 (09:59→21:18)
[2019-04-30] MEDS: Timolol 0.5% 5ML OPTH.BTL 1 DRP OPHTHALMIC ×2 (09:59→21:17)
[2019-04-30] MEDS: Isosorbide Mononitrate 60 MG Tablet PO (10:01)
[2019-04-30] MEDS: Enoxaparin 30 MG/0.3 ML Syringe SC (10:01)
[2019-04-30] MEDS: Ranolazine 500 MG Tablet 1000 MG PO ×2 (10:01→21:16)
[2019-04-30] MEDS: Metoprolol Tartrate 50 MG Tablet 75 MG PO ×2 (10:02→21:17)
[2019-04-30] MEDS: Miconazole Nitrate Cream 1 APPLIC TOPICAL ×2 (10:04→21:17)
[2019-04-30] MEDS: FLUOROMETHOLONE ACETATE 1 DRP OP (10:04)
--- NOTE | 2019-04-30 11:13 | PCM.PROGNOTE ---
Patient Problems: Active and Suspected Problems (Last Reviewed 06/21/18 @ 14:11 by Nahid Hernandez MD) Pleural effusion, left (Acute) Dyspnea (Acute) Lower extremity edema (Acute) Subjective: no sob had some sob last night no cp no other c/o - Physical Exam Vitals/I&O's: Vital Signs Temp Pulse Resp BP Pulse Ox 98.0 F 70 16 152/77 H 96 04/30/19 08:00 04/30/19 10:02 04/30/19 08:00 04/30/19 10:02 04/30/19 08:06 Oxygen Flow Rate (L/min) 2 Oxygen Delivery Method Room Air Weight: 48.4 kg Body Mass Index (BMI) 19.9 Intake and Output for Last 24 Hours 04/28/19 04/29/19 04/30/19 23:59 23:59 23:59 Intake Total 791.69 / 791.69 60 / 60 Output Total 750 / 750 Balance 41.69 / 41.69 60 / 60 General: Alert, Oriented x3, Cooperative HEENT: Atraumatic, PERRLA, EOMI, Normocephalic Neck: Supple, No JVD, Negative Carotid Bruits Lungs: Clear to auscultation, Normal air movement Cardiovascular: Regular rate, No murmurs Abdomen: Bowel Sounds Present, Soft, Non Tender Extremities: No edema, Capillary Refill Less than 3 Seconds Skin: No rashes, No breakdown Musculoskeletal: No Tenderness to Palpation of Joints or Extremities Neurological: Cranial nerves II-XII grossly intact Psych/Mental Status: Normal Affect, Appropriate Microbiology Past 72 Hours 04/28/19 16:30 Urine, Clean Catch Urine Culture - Preliminary Culture exhibits no growth. Current Medications Acetaminophen (Tylenol) 1,000 mg PO Q8 [facility] Last Admin: 04/30/19 05:28 Dose: 1,000 mg Documented by: Albuterol Sulfate (Ventolin Aerosols) 2.5 mg INHALATION Q2H PRN PRN PRN Reason: SOB/Wheezing Atorvastatin Calcium (Lipitor) 20 mg PO QHS [facility] Last Admin: 04/29/19 21:29 Dose: 20 mg Documented by: Brimonidine Tartrate (Brimonidine 0.2% 5ml Bottle) 1 drop EACH EYE BID [facility] Last Admin: 04/30/19 09:59 Dose: 1 drop Documented by: Dextrose (D50w Syringe) 0 gm IV X1 PRN; Protocol PRN Reason: Hypoglycemia Enoxaparin Sodium (Lovenox) 30 mg SC DAILY [facility] Last Admin: 04/30/19 10:01 Dose: 30 mg Documented by: Fluorometholone (Flarex) 1 drop OP BID [facility] Last Admin: 04/30/19 10:04 Dose: 1 drop Documented by: Glucagon () 1 mg IM .X1 PRN PRN Reason: Hypoglycemia Hydralazine HCl (Apresoline Iv) 10 mg IV Q4H PRN PRN PRN Reason: SBP > 160 Furosemide 500 mg/ N/A 50 mls @ 2 mls/hr CONT INF .Q25H [facility] Last Admin: 04/29/19 12:05 Dose: 20 mg/hr, 2 mls/hr Documented by: Isosorbide Mononitrate (Imdur) 60 mg PO DAILY [facility] Last Admin: 04/30/19 10:01 Dose: 60 mg Documented by: Latanoprost (Xalatan Opthalmic) 1 drop EACH EYE QHS [facility] Last Admin: 04/29/19 21:31 Dose: 1 drop Documented by: Metoprolol Tartrate (Lopressor (Beta Brandyn)) 75 mg PO BID [facility] Last Admin: 04/30/19 10:02 Dose: 75 mg Documented by: Miconazole Nitrate (Monistat-Derm, Micatin) 1 applic TOPICAL BID [facility]; Protocol Last Admin: 04/30/19 10:04 Dose: 1 applicatio Documented by: Nitroglycerin (Nitrostat) 0.4 mg SUBLINGUAL Q5M PRN PRN Reason: CARDIAC/CHEST PAIN Nutritional Formula (Lactose Free) (Ensure Enlive) 120 ml PO DAILY [facility] Last Admin: 04/30/19 10:04 Dose: 120 ml Documented by: Ondansetron HCl (Zofran) 4 mg IV Q8H PRN PRN PRN Reason: NAUSEA/VOMITING Potassium Chloride (K-Dur) 10 meq PO QHS [facility] Last Admin: 04/29/19 21:29 Dose: 10 meq Documented by: Ranolazine (Ranexa) 1,000 mg PO BID [facility] Last Admin: 04/30/19 10:01 Dose: 1,000 mg Documented by: Sodium Chloride () 10 - 40 ml IV UD PRN PRN Reason: SALINE FLUSH Last Admin: 04/28/19 21:28 Dose: 40 ml Documented by: Timolol Maleate (Timoptic) 1 drop OPHTHALMIC BID [facility] Last Admin: 04/30/19 09:59 Dose: 1 drop Documented by: Medical Necessity - Tobacco Use Smoking Status: Never smoker Tobacco Use: Non-smoker Assessment/Plan All Active Problems (Last Reviewed 06/21/18 @ 14:11 by Nahid Hernandez MD) Pleural effusion, left (Acute) Dyspnea (Acute) Lower extremity edema (Acute) Scalp laceration (Acute) Recurrent falls (Acute) Closed fracture of left inferior pubic ramus (Acute) Injury of left shoulder and upper arm (Acute) History of coronary artery stent placement (Resolved 05/21/09) ARF (acute renal failure) (Resolved) Fracture of femoral neck, left (Resolved) Hypertensive emergency (Resolved) Pyelonephritis, acute (Resolved) CKD baseline creatinine 2-2.5 LE edema HF Patient is currently on a Lasix drip. Creatinine was yesterday 2.2 which is consistent with her baseline. Can continue Lasix drip for now from nephrology standpoint. Blood pressure is acceptable. check bmp in am Avoid nephrotoxins and overdiuresis T
--- NOTE | 2019-04-30 12:49 | PN_ITS ---
Patient Problems: Active and Suspected Problems (Last Reviewed 06/21/18 @ 14:11 by Nahid Hernandez MD) Pleural effusion, left (Acute) Dyspnea (Acute) Lower extremity edema (Acute) Reason for Visit: CHF exacerbation and CKD stage IV Subjective: Patient shortness of breath and leg swelling is better but he still gets short of breath on mild exertion. Needs further diuresis. Vitals/I&O's: Vital Signs Temp Pulse Resp BP Pulse Ox 98.0 F 70 16 152/77 H 96 04/30/19 08:00 04/30/19 10:02 04/30/19 08:00 04/30/19 10:02 04/30/19 08:06 Oxygen Flow Rate (L/min) 2 Oxygen Delivery Method Room Air Weight: 106 lb 11.26 oz Body Mass Index (BMI) 19.9 Intake and Output for Last 24 Hours 04/28/19 04/29/19 04/30/19 23:59 23:59 23:59 Intake Total 791.69 / 791.69 60 / 60 Output Total 750 / 750 Balance 41.69 / 41.69 60 / 60 General: Alert, Oriented x3, Cooperative HEENT: Atraumatic, PERRLA, EOMI, Normocephalic Neck: Supple, No JVD, Negative Carotid Bruits Lungs: No rhonchi, No wheeze, No rales, Diminished - Air entry diminished in the right lung base Cardiovascular: Regular rate, Regular Rhythm, Normal S1, Normal S2, No murmurs Abdomen: Bowel Sounds Present, Soft, Non Tender, Non-Distended Extremities: Capillary Refill Less than 3 Seconds, Edema Skin: - - Weeping legs and lymphedema. Skin condition is better Musculoskeletal: No Tenderness to Palpation of Joints or Extremities, Arthritic Changes Neurological: Cranial nerves II-XII grossly intact Psych/Mental Status: Normal Affect, Appropriate Microbiology Past 72 Hours 04/28/19 16:30 Urine, Clean Catch Urine Culture - Preliminary Culture exhibits no growth. Current Medications Acetaminophen (Tylenol) 1,000 mg PO Q8 [facility] Last Admin: 04/30/19 05:28 Dose: 1,000 mg Documented by: Albuterol Sulfate (Ventolin Aerosols) 2.5 mg INHALATION Q2H PRN PRN PRN Reason: SOB/Wheezing Atorvastatin Calcium (Lipitor) 20 mg PO QHS [facility] Last Admin: 04/29/19 21:29 Dose: 20 mg Documented by: Brimonidine Tartrate (Brimonidine 0.2% 5ml Bottle) 1 drop EACH EYE BID [facility] Last Admin: 04/30/19 09:59 Dose: 1 drop Documented by: Dextrose (D50w Syringe) 0 gm IV X1 PRN; Protocol PRN Reason: Hypoglycemia Enoxaparin Sodium (Lovenox) 30 mg SC DAILY [facility] Last Admin: 04/30/19 10:01 Dose: 30 mg Documented by: Fluorometholone (Flarex) 1 drop OP BID [facility] Last Admin: 04/30/19 10:04 Dose: 1 drop Documented by: Glucagon () 1 mg IM .X1 PRN PRN Reason: Hypoglycemia Hydralazine HCl (Apresoline Iv) 10 mg IV Q4H PRN PRN PRN Reason: SBP > 160 Furosemide 500 mg/ N/A 50 mls @ 2 mls/hr CONT INF .Q25H [facility] Last Admin: 04/29/19 12:05 Dose: 20 mg/hr, 2 mls/hr Documented by: Isosorbide Mononitrate (Imdur) 60 mg PO DAILY [facility] Last Admin: 04/30/19 10:01 Dose: 60 mg Documented by: Latanoprost (Xalatan Opthalmic) 1 drop EACH EYE QHS [facility] Last Admin: 04/29/19 21:31 Dose: 1 drop Documented by: Metoprolol Tartrate (Lopressor (Beta Brandyn)) 75 mg PO BID [facility] Last Admin: 04/30/19 10:02 Dose: 75 mg Documented by: Miconazole Nitrate (Monistat-Derm, Micatin) 1 applic TOPICAL BID [facility]; Protocol Last Admin: 04/30/19 10:04 Dose: 1 applicatio Documented by: Nitroglycerin (Nitrostat) 0.4 mg SUBLINGUAL Q5M PRN PRN Reason: CARDIAC/CHEST PAIN Nutritional Formula (Lactose Free) (Ensure Enlive) 120 ml PO DAILY [facility] Last Admin: 04/30/19 10:04 Dose: 120 ml Documented by: Ondansetron HCl (Zofran) 4 mg IV Q8H PRN PRN PRN Reason: NAUSEA/VOMITING Potassium Chloride (K-Dur) 10 meq PO QHS [facility] Last Admin: 04/29/19 21:29 Dose: 10 meq Documented by: Ranolazine (Ranexa) 1,000 mg PO BID [facility] Last Admin: 04/30/19 10:01 Dose: 1,000 mg Documented by: Sodium Chloride () 10 - 40 ml IV UD PRN PRN Reason: SALINE FLUSH Last Admin: 04/28/19 21:28 Dose: 40 ml Documented by: Timolol Maleate (Timoptic) 1 drop OPHTHALMIC BID [facility] Last Admin: 04/30/19 09:59 Dose: 1 drop Documented by: STROKE Vital Signs/Narrative: Vital Signs Pulse BP 04/30/19 10:02 70 152/77 H Medical Necessity - Tobacco Use Smoking Status: Never smoker Tobacco Use: Non-smoker Assessment/Plan All Active Problems (Last Reviewed 06/21/18 @ 14:11 by Nahid Hernandez MD) Pleural effusion, left (Acute) Dyspnea (Acute) Lower extremity edema (Acute) Scalp laceration (Acute) Recurrent falls (Acute) Closed fracture of left inferior pubic ramus (Acute) Injury of left shoulder and upper arm (Acute) History of coronary artery stent placement (Resolved 05/21/09) ARF (acute renal failure) (Resolved) Fracture of femoral neck, left (Resolved) Hypertensive emergency (Resolved) Pyelonephritis, acute (Resolved) This is a 78-year-old female with multiple comorbidities including coronary artery disease, chronic heart failure, CKD stage IV was admitted with progressive worsening of shortness of breath, lower extremity edema, elevated BNP more than 50,000, chest x-ray findings of left pleural effusion suggestive of acute on chronic heart failure with preserved EF. 1. Acute on chronic heart failure with preserved ejection fraction: The patient is being admitted in PCU. EKG reviewed. No normal sinus rhythm at 69 bpm with bifascicular block, RBBB plus LAFB. Patient was seen by mining and quarrying machinery repairer. Started on Lasix drip. Other core measures of heart failure followed including fluid restriction, strict input and output and daily weight monitoring. 2D echo 2015: EF of 65% with stage II diastolic dysfunction and no regional wall motion abnormalities noted. No pericardial effusion RVSP was 32 mmHg. The echo done. April 30, 2019: 2D echo reported as Normal LV size. The estimated ejection fraction is 20 %. Stage 1 diastolic dysfunction. Moderate (2+) eccentric mitral valve insufficiency. Pulmonary artery systolic pressure is 36 mmHg. Mild (1+) aortic valve insufficiency. Compared to the previous there is significant decline in the function. Contrast injection was performed. Discussed with mining and quarrying machinery repairer and rehabilitation construction specialist. Continue diuresis. Patient had negative balance of about 100 mL. Her weight has decreased from 116 to 106 pound therefore intake and output is probably inaccurate 2. Coronary artery disease with indeterminate troponins: Serial troponins are mildly elevated 0.4?3. Flat and indeterminate. Probably secondary to fluid overload from heart failure.Currently on Imdur and metoprolol and ranolazine.. Sublingual nitroglycerin as needed. * Patient had cardiac cath in 05/2018. Cath findings normal left main coronary artery and moderate luminal irregularities up to 50% in the LAD and moderate luminal irregularities in the circumflex and first diagonal arteries as well. She had 80% stenosis in the right coronary artery with an in-stent 95% stenosis and collateral flow from left to right. At that time, she has not had a candidate for PCI because of severe anemia not taking for long-term aspirin and Plavix. And medical therapy was recommended. 3. CKD stage IV: Patient baseline creatinine is around 2.25-2.5. As patient is on IV diuresis and expected creatinine to go up therefore [place] rehabilitation construction specialist was consulted who they have seen in the past. Urine culture is negative. 4. History of Sjogren's disease and rheumatoid arthritis. * stable. 5. Hyperlipidemia: on statin 6. Recent history of right hip fracture * Managed conservatively. Currently stable. Got out of intermediate 2 weeks ago. * Consult PT OT. DVT prophylaxis: Lovenox Code Visit Inpatient E&M: 51856 Subs Hosp L2
--- NOTE | 2019-04-30 13:21 | PN.CARD_ITS ---
Subjectve: Patient seen and evaluated. Appears to be doing better. Objective: Vital Signs Temp Pulse Resp BP Pulse Ox 98.0 F 70 16 152/77 H 96 04/30/19 08:00 04/30/19 10:02 04/30/19 08:00 04/30/19 10:02 04/30/19 08:06 Oxygen Flow Rate (L/min) 2 Oxygen Delivery Method Room Air Weight: 106 lb 11.26 oz Body Mass Index (BMI) 19.9 Intake and Output for Last 24 Hours 04/28/19 04/29/19 04/30/19 23:59 23:59 23:59 Intake Total 791.69 / 791.69 60 / 60 Output Total 750 / 750 Balance 41.69 / 41.69 60 / 60 General: Awake, Alert, Oriented x 3 HEENT: PERRL, EOMI, Sclera Non Icteric Neck: Supple, Good ROM, No Lymph Node Enlargement Lungs: Clear to auscultation Cardiovascular: Regular Rhythm, Normal S1, Normal S2, No Murmurs, No Rubs, No Gallops Vascular: No Carotid Bruits, Normal Femoral Pulses, Normal Radial Pulses, Normal Dorsalis Pedal Pulse, Normal Posterior Tibial Pulses Abdomen: Bowel Sounds Present, Soft, Non Tender, No HSM, No Organomegaly Extremities: No Cyanosis, No Clubbing, Bilateral Edema +1 Neurological: No Focal Motor or Sensory Deficit Rhythm: EKG: ECHO: Stress Test: Cardiac Cath: PCI: CT Surgery: Holter monitor: EPS: PPM: CXR: Chest CT Scan: Medical Necessity - Tobacco Use Smoking Status: Never smoker Tobacco Use: Non-smoker Assessment/Plan 1. Heart failure with reduced ejection fraction * She presents with progressive shortness of breath and pedal edema and has previously had known preserved ventricular systolic function by cardiac catheterization. I suspect that she is retaining fluid due to worsening renal failure. Her most recent echocardiogram demonstrates significant reduction in left ventricular ejection fraction estimated at 20% with segmental wall motion abnormalities involving the anterior wall and apex. I would recommend trying to see whether we can diurese her with intravenous Lasix via IV continuous drip rather than intermittent bolus. Even though the studies have shown no significant difference I would prefer this approach for at least 24 more hours. * She appears to be doing better today. 2. Coronary artery disease * She does appear to have stable coronary artery disease. She has not had any chest pain during this visit. She does have minimal troponin elevation but will continue to monitor the above. No acute EKG changes are noted. * Her left ventricular systolic dysfunction certainly does suggest that she probably has progressive coronary artery disease. You do remember at her previous cardiac catheterization it was felt that a repeat angioplasty especially as she cannot take any aspirin or Plavix products would not be the ideal. At this particular time the major concern is that additional dye load may lead to dialysis. Will need to discuss with family further as to whether we should continue with medical therapy or consider invasive therapy. 3. Bifascicular block * The above has been stable and I will not recommend we make any changes with regard to this. * 4. Renal dysfunction * She appears to have progressive renal dysfunction. It may be prudent to consult with the renal service to see whether they have any input, insight or advise. * I did explain to the family that would continue diuresis her renal function may actually get worse. Fortunately her renal function has held over the last 24 hours. * Thank you for allowing me to participate in the care of your patient. Please don't hesitate to call if any issues arise
[2019-04-30] MEDS: 0.9% Saline Lock 10 ML Syringe IV (14:13)
[2019-04-30] MEDS: Atorvastatin Calcium 20 MG Tablet PO (21:16)
[2019-04-30] MEDS: Latanoprost 0.005% 1 Bottle 1 DRP EACH EYE (21:17)
[2019-05-01] VITALS (12 sets, daily range): BP systolic 126–154; BP diastolic 63–75; PULSE 66–74; RESP 16–18; TEMP 36.4–36.8; O2SAT 96–99
[2019-05-01] MEDS: 0.9% Saline Lock 10 ML Syringe IV ×2 (05:07→17:56)
[2019-05-01 06:03] LABS: AST(SGOT) 26 U/L (15-37); Alanine Aminotransfer ALT/SGPT 21 U/L (13-56); Albumin, Serum 2.6 g/dL (3.2-5.0); Alkaline Phosphatase 143 U/L (45-117); Bilirubin, Direct 0.26 mg/dL (0.00-0.30); Globulin 4.2 g/dL (2.2-4.2); Protein, Total 6.8 g/dL (6.4-8.2)
[2019-05-01] MEDS: Acetaminophen 500 MG Tablet 1000 MG PO ×3 (06:34→21:20)
[2019-05-01 07:55] LABS: Anion Gap 6 (5-15); BUN 61 mg/dL (7-18); BUN/Creat Ratio 26.6 RATIO (10-20); Chloride 109 mmol/L (98-107); Creatinine, Serum 2.29 mg/dL (0.55-1.02); EST Glomerular Filtration Rate 22 mL/min (>60); Est Glom Filt Rate - Afr Amer 26 mL/min (>60); Estimated Creatinine Clearance 14.94 ml/min; Glucose 108 mg/dL (74-106); Potassium 4.1 mmol/L (3.5-5.1); Sodium Level 142 mmol/L (136-145)
[2019-05-01] MEDS: Timolol 0.5% 5ML OPTH.BTL 1 DRP OPHTHALMIC ×2 (08:18→21:10)
[2019-05-01] MEDS: LIFITEGRAST 1 EACH DROPERETTE OP ×2 (08:19→21:09)
[2019-05-01] MEDS: BRIMONIDINE 0.2% 5ML BOTTLE 1 DRP EACH EYE ×2 (08:19→21:09)
[2019-05-01] MEDS: Metoprolol Tartrate 50 MG Tablet 75 MG PO ×2 (08:26→21:21)
[2019-05-01] MEDS: Isosorbide Mononitrate 60 MG Tablet PO (08:26)
[2019-05-01] MEDS: Ranolazine 500 MG Tablet 1000 MG PO ×2 (08:26→21:21)
[2019-05-01] MEDS: Enoxaparin 30 MG/0.3 ML Syringe SC (08:27)
[2019-05-01] MEDS: Furosemide 40 MG Tablet PO (08:31)
--- NOTE | 2019-05-01 11:41 | DCINST_ITS ---
- Discharge Diagnoses Current Active Problems: Current Active and Chronic Problems (Last Reviewed 06/21/18 @ 14:11 by Nahid Hernandez MD) Pleural effusion, left (Acute) Dyspnea (Acute) Acute exacerbation of CHF (congestive heart failure) (Chronic) Lower extremity edema (Acute) You will use the following diet at home:: Cardiac Your food should be the consistency of: Regular Discharge Activity: May Not Drive Weight Bearing Status: Weight bearing as tolerated Call your doctor if you observe: Fever of 101 or Higher, Coldness, Increased Pain, Numbness or Tingling, Change in Color, Inability to urinate, Inability to have a bowel movement, Using more than one pad per hour, Dizziness, Chest pain, Prolonged hiccoughing, Increased palpitations (irregular heartbeat), Calf discomfort, Uncontrolled pain Allergies/Adverse Reactions: Allergies adalimumab [From Humira] Allergy (Verified 04/28/19 15:18) Rash ciprofloxacin HCl [From Cipro] Allergy (Verified 04/28/19 15:18) Unknown doxazosin Allergy (Verified 04/28/19 15:18) Other hydroxyzine [From Vistaril] Allergy (Verified 04/28/19 15:18) Other latex Allergy (Verified 04/28/19 15:18) Rash levofloxacin [From Levaquin] Allergy (Verified 04/28/19 15:18) Unknown lisinopril Allergy (Verified 04/28/19 15:18) Other COUGH Methotrexate Analogues Allergy (Verified 04/28/19 15:18) Hives naproxen Allergy (Verified 04/28/19 15:18) Unknown potassium clavulanate [From Augmentin] Allergy (Verified 04/28/19 15:18) Unknown Sulfa (Sulfonamide Antibiotics) Allergy (Verified 04/28/19 15:18) Unknown amlodipine Adverse Reaction (Severe, Verified 04/28/19 15:18) edema haloperidol lactate [From Haldol] Adverse Reaction (Unknown, Verified 04/28/19 15:18) agitation amoxicillin trihydrate [From Augmentin] Adverse Reaction (Verified 04/28/19 15 :18) Upset Stomach hydromorphone HCl [From Dilaudid] Adverse Reaction (Verified 04/28/19 15:18) Other HALLUCINATIONS hydroxychloroquine sulfate [From Plaquenil] Adverse Reaction (Verified 04/28/19 15:18) Other VISION ISSUES Medications to take at Discharge Multivit-Min/FA/Lycopen/Lutein [Centrum Silver Tablet] 1 ea PO DAILY 04/01/15 nitroglycerin 0.4 mg sublingual tablet 0.4 mg SUBLINGUAL PRN PRN #25 tab 01/31/18 Cholecalciferol (Vitamin D3) [Vitamin D3] 5,000 unit PO DAILY 06/06/18 Cyanocobalamin (Vitamin B-12) [B-12] 1,000 mcg PO DAILY 06/06/18 Vit C/E/Zn/Coppr/Lutein/Zeaxan [Preservision Areds 2 Softgel] 1 ea PO BID 06/06/18 atorvastatin 20 mg tablet 20 mg PO QHS 06/21/18 potassium chloride 10 mEq capsule,extended release 10 meq PO QHS cap 06/21/18 Brimonidine Tartrate/Timolol [Combigan Eye Drops] 1 drp EACH EYE BID 02/13/19 Latanoprost 1 drp EACH EYE QHS 02/13/19 isosorbide mononitrate 60 mg tablet,extended release 24 hr 60 mg PO DAILY tab 02/19/19 Metoprolol Tartrate [Lopressor (beta elena)] 75 mg PO BID 03/20/19 Ranolazine [Ranexa] 1,000 mg PO BID 03/20/19 Acetaminophen [Tylenol] 1,000 mg PO Q8H 04/28/19 Lidocaine 1 ea TOPICAL DAILY 04/28/19 Lifitegrast [Xiidra] 1 ea OP BID 04/29/19 Furosemide 40 mg PO BID #60 tab 05/01/19 The following prescriptions were given: Furosemide 40 mg PO BID #60 tab Transmission Status: Pending to [id number] Primary Care Physician: Demarco Lopez MD [Primary Care Provider] - Please follow up with your Primary Care Physician in: in 2 weeks Test Results: Test results from this visit will be discussed in further detail at your follow- up appointment, if applicable. Please Follow Up With: Zeferino Farrar MD When: in 1 week with follow up BMP Please Follow Up With: Nahid Hernandez MD When: IN 4 WEEKS
--- NOTE | 2019-05-01 11:45 | PCA ---
Patient stated not to schedule any follow up appts for her, says that her daughter will schedule them.
--- NOTE | 2019-05-01 12:07 | CASEMGMT ---
STEVE Note: DC to home today. Interim C called and notified. DC Summary faxed to . Del MAJOR RN AC
--- NOTE | 2019-05-01 12:43 | PCM.DC.SUM ---
Discharge Date and Diagnosis - Problem List Patient Problems: Active and Suspected Problems (Last Reviewed 06/21/18 @ 14:11 by Nahid Hernandez MD) Pleural effusion, left (Acute) Dyspnea (Acute) Lower extremity edema (Acute) Date of Admission: 04/28/19 Date of Discharge: 05/01/19 - Primary Discharge Diagnosis Active and Suspected Problems (Last Reviewed 06/21/18 @ 14:11 by Nahid Hernandez MD) Pleural effusion, left (Acute) Dyspnea (Acute) Lower extremity edema (Acute) - Secondary Discharge Diagnosis Chronic Problems (Last Reviewed 06/21/18 @ 14:11 by Nahid Hernandez MD) Acute exacerbation of CHF (congestive heart failure) (Chronic) Iron deficiency anemia (Chronic) Chronic renal insufficiency (Chronic) Chronic diastolic (congestive) heart failure (Chronic) Essential (primary) hypertension (Chronic) Elevated troponin (Chronic) Atherosclerotic heart disease of [place] coronary artery without angina pectoris (Chronic) Hyperlipemia (Chronic) Hospital Course and Treatment Operations: None Summary of Care Provided: [] This is a 78-year-old female with multiple comorbidities including coronary artery disease, chronic heart failure, CKD stage IV was admitted with progressive worsening of shortness of breath, lower extremity edema, elevated BNP more than 50,000, chest x-ray findings of left pleural effusion suggestive of acute on chronic heart failure with preserved EF. 1. Acute on chronic heart failure with preserved ejection fraction: The patient is being admitted in PCU. EKG reviewed. No normal sinus rhythm at 69 bpm with bifascicular block, RBBB plus LAFB. Patient was seen by senior php web developer. Started on Lasix drip. Other core measures of heart failure followed including fluid restriction, strict input and output and daily weight monitoring. 2D echo 2015: EF of 65% with stage II diastolic dysfunction and no regional wall motion abnormalities noted. No pericardial effusion RVSP was 32 mmHg. The echo done. April 30, 2019: 2D echo reported as Normal LV size. The estimated ejection fraction is 20 %. Stage 1 diastolic dysfunction. Moderate (2+) eccentric mitral valve insufficiency. Pulmonary artery systolic pressure is 36 mmHg. Mild (1+) aortic valve insufficiency. Compared to the previous there is significant decline in the function. Contrast injection was performed. Discussed with senior php web developer and medical van driver. Continue diuresis. Patient had negative balance of about 100 mL. Her weight has decreased from 116 to 106 pound therefore intake and output is probably inaccurate 05/01/2019: BUN/creatinine slightly went up from 57/2 0.21-60 1/2.29 but is still on baseline. Lasix is changed to 40 mg daily today and changed to 40 mg twice daily at home from tomorrow. Discussed with the medical van driver. Outpatient BMP after 1 week and follow-up with Mee Welch medical van driver. Patient is well diuresed and lost about 12 pounds. Discussed with senior php web developer. Patient is not a good candidate for antiplatelet agent secondary to severe anemia therefore aspirin and Plavix not given. Anemia of chronic disease: Currently her H&H is stable 11.0/36.1. 2. Coronary artery disease with indeterminate troponins: Serial troponins are mildly elevated 0.4?3. Flat and indeterminate. Probably secondary to fluid overload from heart failure.Currently on Imdur and metoprolol and ranolazine.. Sublingual nitroglycerin as needed. Patient had cardiac cath in 05/2018. Cath findings normal left main coronary artery and moderate luminal irregularities up to 50% in the LAD and moderate luminal irregularities in the circumflex and first diagonal arteries as well. She had 80% stenosis in the right coronary artery with an in-stent 95% stenosis and collateral flow from left to right. At that time, she has not had a candidate for PCI because of severe anemia not taking for long-term aspirin and Plavix. And medical therapy was recommended. 3. CKD stage IV: Patient baseline creatinine is around 2.25-2.5. As patient is on IV diuresis and expected creatinine to go up therefore [place] medical van driver was consulted who they have seen in the past. Urine culture is negative. 4. History of Sjogren's disease and rheumatoid arthritis. stable. 5. Hyperlipidemia: on statin 6. Recent history of right hip fracture Managed conservatively. Currently stable. Consult PT OT. DVT prophylaxis: Lovenox Discharge medication reconciliation done. Discharge follow-up instructions completed. Discharge process discussed with the patient and all questions were answered to patient's satisfaction. Patient is being discharged home. Patient had interdisciplinary rounds on 04/30/2019. Total time spent, exact 35 minutes on coordination of care, discussion with consultants, discharge meds reconciliation, examination, review of imaging and blood test and discussion with the patient on follow-up instructions. Patient Problems: Active and Suspected Problems (Last Reviewed 06/21/18 @ 14:11 by Nahid Hernandez MD) Pleural effusion, left (Acute) Dyspnea (Acute) Lower extremity edema (Acute) Subjective: Seen and examined. Patient sitting on the chair. Patient walked around the nursing station. Pulse ox 99% on room air. Leg swelling have improved. Objective: General: Alert, Oriented x3, Cooperative HEENT: Atraumatic, PERRLA, EOMI, Normocephalic Neck: Supple, No JVD, Negative Carotid Bruits Lungs: No rhonchi, No wheeze, No rales, Air entry diminished in the right lung base but has improved since admission. Cardiovascular: Regular rate, Regular Rhythm, Normal S1, Normal S2, No murmurs Abdomen: Bowel Sounds Present, Soft, Non Tender, Non-Distended Extremities: Capillary Refill Less than 3 Seconds, Edema Skin: -Minimal leg edema. Weeping has resolved. Skin condition is better Musculoskeletal: No Tenderness to Palpation of Joints or Extremities, Arthritic Changes Neurological: Cranial nerves II-XII grossly intact Psych/Mental Status: Normal Affect, Appropriate - Physical Exam Vitals/I&O's: Vital Signs Temp Pulse Resp BP Pulse Ox 98.0 F 70 16 145/71 H 96 05/01/19 08:11 05/01/19 08:26 05/01/19 08:11 05/01/19 08:11 05/01/19 08:11 Oxygen Flow Rate (L/min) 2 Oxygen Delivery Method Room Air Weight: 104 lb 11.513 oz Body Mass Index (BMI) 19.9 Intake and Output for Last 24 Hours 04/29/19 04/30/19 05/01/19 23:59 23:59 23:59 Intake Total 791.69 / 791.69 740 / 990 300 / 300 Output Total 750 / 750 400 / 400 Balance 41.69 / 41.69 740 / 590 -100 / -100 Microbiology Past 72 Hours 04/28/19 16:30 Urine, Clean Catch Urine Culture - Final Culture exhibits no growth. Laboratory Results 05/01/19 05:00: Total Bilirubin 0.60, Direct Bilirubin 0.26, AST 26, ALT 21, Alkaline Phosphatase 143 H, Total Protein 6.8, Albumin 2.6 L, Globulin 4.2 05/01/19 05:00: Sodium 142, Potassium 4.1, Chloride 109 H, Carbon Dioxide 27.0, Anion Gap 6, BUN 61 H, Creatinine 2.29 H, Estim Creat Clear Calc 14.94, Est GFR (MDRD) Af Amer 26 L, Est GFR (MDRD) Non-Af 22 L, BUN/Creatinine Ratio 26.6 H, Glucose 108 H, Calcium 9.0 Current Medications Acetaminophen (Tylenol) 1,000 mg PO Q8 [facility] Last Admin: 05/01/19 06:34 Dose: 1,000 mg Documented by: Albuterol Sulfate (Ventolin Aerosols) 2.5 mg INHALATION Q2H PRN PRN PRN Reason: SOB/Wheezing Atorvastatin Calcium (Lipitor) 20 mg PO QHS [facility] Last Admin: 04/30/19 21:16 Dose: 20 mg Documented by: Brimonidine Tartrate (Brimonidine 0.2% 5ml Bottle) 1 drop EACH EYE BID [facility] Last Admin: 05/01/19 08:19 Dose: 1 drop Documented by: Dextrose (D50w Syringe) 0 gm IV X1 PRN; Protocol PRN Reason: Hypoglycemia Enoxaparin Sodium (Lovenox) 30 mg SC DAILY [facility] Last Admin: 05/01/19 08:27 Dose: 30 mg Documented by: Fluorometholone (Flarex) 1 drop OP BID [facility] Last Admin: 05/01/19 08:41 Dose: Not Given Documented by: Furosemide (Lasix) 40 mg PO DAILY [facility] Glucagon () 1 mg IM .X1 PRN PRN Reason: Hypoglycemia Hydralazine HCl (Apresoline Iv) 10 mg IV Q4H PRN PRN PRN Reason: SBP > 160 Isosorbide Mononitrate (Imdur) 60 mg PO DAILY [facility] Last Admin: 05/01/19 08:26 Dose: 60 mg Documented by: Latanoprost (Xalatan Opthalmic) 1 drop EACH EYE QHS [facility] Last Admin: 04/30/19 21:17 Dose: 1 drop Documented by: Metoprolol Tartrate (Lopressor (Beta Brandyn)) 75 mg PO BID [facility] Last Admin: 05/01/19 08:26 Dose: 75 mg Documented by: Miconazole Nitrate (Monistat-Derm, Micatin) 1 applic TOPICAL BID [facility]; Protocol Last Admin: 05/01/19 08:31 Dose: Not Given Documented by: Nitroglycerin (Nitrostat) 0.4 mg SUBLINGUAL Q5M PRN PRN Reason: CARDIAC/CHEST PAIN Nutritional Formula (Lactose Free) (Ensure Enlive) 120 ml PO DAILY [facility] Last Admin: 05/01/19 08:34 Dose: 120 ml Documented by: Ondansetron HCl (Zofran) 4 mg IV Q8H PRN PRN PRN Reason: NAUSEA/VOMITING Potassium Chloride (K-Dur) 10 meq PO QHS [facility] Last Admin: 04/30/19 21:16 Dose: 10 meq Documented by: Ranolazine (Ranexa) 1,000 mg PO BID [facility] Last Admin: 05/01/19 08:26 Dose: 1,000 mg Documented by: Sodium Chloride () 10 - 40 ml IV UD PRN PRN Reason: SALINE FLUSH Last Admin: 05/01/19 05:07 Dose: 30 ml Documented by: Timolol Maleate (Timoptic) 1 drop OPHTHALMIC BID [facility] Last Admin: 05/01/19 08:18 Dose: 1 drop Documented by: Home Medications: Medications to take at Discharge Multivit-Min/FA/Lycopen/Lutein [Centrum Silver Tablet] 1 ea PO DAILY 04/01/15 nitroglycerin 0.4 mg sublingual tablet 0.4 mg SUBLINGUAL PRN PRN #25 tab 01/31/18 Cholecalciferol (Vitamin D3) [Vitamin D3] 5,000 unit PO DAILY 06/06/18 Cyanocobalamin (Vitamin B-12) [B-12] 1,000 mcg PO DAILY 06/06/18 Vit C/E/Zn/Coppr/Lutein/Zeaxan [Preservision Areds 2 Softgel] 1 ea PO BID 06/06/18 atorvastatin 20 mg tablet 20 mg PO QHS 06/21/18 potassium chloride 10 mEq capsule,extended release 10 meq PO QHS cap 06/21/18 Brimonidine Tartrate/Timolol [Combigan Eye Drops] 1 drp EACH EYE BID 02/13/19 Latanoprost 1 drp EACH EYE QHS 02/13/19 isosorbide mononitrate 60 mg tablet,extended release 24 hr 60 mg PO DAILY tab 02/19/19 Metoprolol Tartrate [Lopressor (beta brandyn)] 75 mg PO BID 03/20/19 Ranolazine [Ranexa] 1,000 mg PO BID 03/20/19 Acetaminophen [Tylenol] 1,000 mg PO Q8H 04/28/19 Lidocaine 1 ea TOPICAL DAILY 04/28/19 Lifitegrast [Xiidra] 1 ea OP BID 04/29/19 Furosemide 40 mg PO BID #60 tab 05/01/19 Following Prescrptions Were Given to Patient: Furosemide 40 mg PO BID #60 tab Transmission Status: Pending to [id number] Primary Care Physician: Demarco Lopez MD [Primary Care Provider] - Medical Necessity - Tobacco Use Smoking Status: Never smoker Tobacco Use: Non-smoker Meaningful Use Info Meaningful Use Diagnoses (Choose all that apply): None applicable Code Visit Inpatient E&M: 26685 Disch Hosp
[2019-05-01 13:21] LABS: Cholesterol 109 mg/dL (200); High Density Lipoprotein 28 mg/dL; Triglycerides 183 mg/dL; Very Low Density Lipoprotein 37 mg/dL (5-40)
--- NOTE | 2019-05-01 14:18 | PHA.DC.MR ---
Pharmacy Service has performed discharge medication reconciliation for this patient. Home Medications Multivit-Min/FA/Lycopen/Lutein [Centrum Silver Tablet] 1 ea PO DAILY 04/01/15 nitroglycerin 0.4 mg sublingual tablet 0.4 mg SUBLINGUAL PRN PRN #25 tab 01/31/18 Cholecalciferol (Vitamin D3) [Vitamin D3] 5,000 unit PO DAILY 06/06/18 Cyanocobalamin (Vitamin B-12) [B-12] 1,000 mcg PO DAILY 06/06/18 Vit C/E/Zn/Coppr/Lutein/Zeaxan [Preservision Areds 2 Softgel] 1 ea PO BID 06/06/18 atorvastatin 20 mg tablet 20 mg PO QHS 06/21/18 potassium chloride 10 mEq capsule,extended release 10 meq PO QHS cap 06/21/18 Brimonidine Tartrate/Timolol [Combigan Eye Drops] 1 drp EACH EYE BID 02/13/19 Latanoprost 1 drp EACH EYE QHS 02/13/19 isosorbide mononitrate 60 mg tablet,extended release 24 hr 60 mg PO DAILY tab 02/19/19 Metoprolol Tartrate [Lopressor (beta elena)] 75 mg PO BID 03/20/19 Ranolazine [Ranexa] 1,000 mg PO BID 03/20/19 Acetaminophen [Tylenol] 1,000 mg PO Q8H 04/28/19 Lidocaine 1 ea TOPICAL DAILY 04/28/19 Lifitegrast [Xiidra] 1 ea OP BID 04/29/19 Furosemide 40 mg PO BID #60 tab 05/01/19 The patient's discharge medication list was reviewed for discrepancies and discrepancies were resolved.
--- NOTE | 2019-05-01 14:48 | PN_ITS ---
Patient Problems: Active and Suspected Problems (Last Reviewed 06/21/18 @ 14:11 by Nahid Hernandez MD) Pleural effusion, left (Acute) Dyspnea (Acute) Lower extremity edema (Acute) Subjective: No shortness of breath no chest pain - Physical Exam Vitals/I&O's: Vital Signs Temp Pulse Resp BP Pulse Ox 98.2 F 68 16 126/63 H 99 05/01/19 13:48 05/01/19 13:48 05/01/19 13:48 05/01/19 13:48 05/01/19 13:48 Oxygen Flow Rate (L/min) 2 Oxygen Delivery Method Room Air Weight: 47.5 kg Body Mass Index (BMI) 19.9 Intake and Output for Last 24 Hours 04/29/19 04/30/19 05/01/19 23:59 23:59 23:59 Intake Total 791.69 / 791.69 740 / 990 300 / 300 Output Total 750 / 750 400 / 400 Balance 41.69 / 41.69 740 / 590 -100 / -100 General: Alert, Oriented x3, Cooperative HEENT: Atraumatic, PERRLA, EOMI, Normocephalic Neck: Supple, No JVD, Negative Carotid Bruits Lungs: Clear to auscultation, Normal air movement Cardiovascular: Regular rate, No murmurs Abdomen: Bowel Sounds Present, Soft, Non Tender Extremities: No edema, Capillary Refill Less than 3 Seconds Skin: No rashes, No breakdown Musculoskeletal: No Tenderness to Palpation of Joints or Extremities Neurological: Cranial nerves II-XII grossly intact Psych/Mental Status: Normal Affect, Appropriate Microbiology Past 72 Hours 04/28/19 16:30 Urine, Clean Catch Urine Culture - Final Culture exhibits no growth. Laboratory Results 05/01/19 05:00: Total Bilirubin 0.60, Direct Bilirubin 0.26, AST 26, ALT 21, Alkaline Phosphatase 143 H, Total Protein 6.8, Albumin 2.6 L, Globulin 4.2 05/01/19 05:00: Sodium 142, Potassium 4.1, Chloride 109 H, Carbon Dioxide 27.0, Anion Gap 6, BUN 61 H, Creatinine 2.29 H, Estim Creat Clear Calc 14.94, Est GFR (MDRD) Af Amer 26 L, Est GFR (MDRD) Non-Af 22 L, BUN/Creatinine Ratio 26.6 H, Glucose 108 H, Calcium 9.0 05/01/19 05:00: Triglycerides 183, Cholesterol 109, LDL Cholesterol 44, VLDL Cholesterol 37, HDL Cholesterol 28 L Current Medications Acetaminophen (Tylenol) 1,000 mg PO Q8 [facility] Last Admin: 05/01/19 13:44 Dose: 1,000 mg Documented by: Albuterol Sulfate (Ventolin Aerosols) 2.5 mg INHALATION Q2H PRN PRN PRN Reason: SOB/Wheezing Atorvastatin Calcium (Lipitor) 20 mg PO QHS [facility] Last Admin: 04/30/19 21:16 Dose: 20 mg Documented by: Brimonidine Tartrate (Brimonidine 0.2% 5ml Bottle) 1 drop EACH EYE BID [facility] Last Admin: 05/01/19 08:19 Dose: 1 drop Documented by: Dextrose (D50w Syringe) 0 gm IV X1 PRN; Protocol PRN Reason: Hypoglycemia Enoxaparin Sodium (Lovenox) 30 mg SC DAILY [facility] Last Admin: 05/01/19 08:27 Dose: 30 mg Documented by: Fluorometholone (Flarex) 1 drop OP BID [facility] Last Admin: 05/01/19 08:41 Dose: Not Given Documented by: Furosemide (Lasix) 40 mg PO DAILY [facility] Glucagon () 1 mg IM .X1 PRN PRN Reason: Hypoglycemia Hydralazine HCl (Apresoline Iv) 10 mg IV Q4H PRN PRN PRN Reason: SBP > 160 Isosorbide Mononitrate (Imdur) 60 mg PO DAILY [facility] Last Admin: 05/01/19 08:26 Dose: 60 mg Documented by: Latanoprost (Xalatan Opthalmic) 1 drop EACH EYE QHS [facility] Last Admin: 04/30/19 21:17 Dose: 1 drop Documented by: Metoprolol Tartrate (Lopressor (Beta Brandyn)) 75 mg PO BID [facility] Last Admin: 05/01/19 08:26 Dose: 75 mg Documented by: Miconazole Nitrate (Monistat-Derm, Micatin) 1 applic TOPICAL BID [facility]; Protocol Last Admin: 05/01/19 08:31 Dose: Not Given Documented by: Nitroglycerin (Nitrostat) 0.4 mg SUBLINGUAL Q5M PRN PRN Reason: CARDIAC/CHEST PAIN Nutritional Formula (Lactose Free) (Ensure Enlive) 120 ml PO DAILY [facility] Last Admin: 05/01/19 08:34 Dose: 120 ml Documented by: Ondansetron HCl (Zofran) 4 mg IV Q8H PRN PRN PRN Reason: NAUSEA/VOMITING Potassium Chloride (K-Dur) 10 meq PO QHS [facility] Last Admin: 04/30/19 21:16 Dose: 10 meq Documented by: Ranolazine (Ranexa) 1,000 mg PO BID [facility] Last Admin: 05/01/19 08:26 Dose: 1,000 mg Documented by: Sodium Chloride () 10 - 40 ml IV UD PRN PRN Reason: SALINE FLUSH Last Admin: 05/01/19 05:07 Dose: 30 ml Documented by: Timolol Maleate (Timoptic) 1 drop OPHTHALMIC BID [facility] Last Admin: 05/01/19 08:18 Dose: 1 drop Documented by: Medical Necessity - Tobacco Use Smoking Status: Never smoker Tobacco Use: Non-smoker Assessment/Plan All Active Problems (Last Reviewed 06/21/18 @ 14:11 by Nahid Hernandez MD) Pleural effusion, left (Acute) Dyspnea (Acute) Lower extremity edema (Acute) Scalp laceration (Acute) Recurrent falls (Acute) Closed fracture of left inferior pubic ramus (Acute) Injury of left shoulder and upper arm (Acute) History of coronary artery stent placement (Resolved 05/21/09) ARF (acute renal failure) (Resolved) Fracture of femoral neck, left (Resolved) Hypertensive emergency (Resolved) Pyelonephritis, acute (Resolved) CKD baseline creatinine 2-2.5 LE edema HF Patient is currently on a Lasix po. Creatinine 2.2 which is consistent with her baseline. bp ok monitor Avoid nephrotoxins and overdiuresis T
--- NOTE | 2019-05-01 18:37 | RAD_ITS ---
STUDY: X-RAY - PELVIS AND LEFT HIP REASON FOR EXAM: Female, 78 years old. FALL TODAY, PAIN TECHNIQUE: 3 views of the pelvis and hip. COMPARISON: Prior study of 03/19/2019 FINDINGS: There is a non-specific bowel gas pattern. Normal visualized soft tissue structures. Normal bilateral iliac wings, sacroiliac joints and visualized sacrum. There are slightly displaced fractures of the medial inferior and superior left pubic rami, appearing acute. Normal pubic symphysis. Normal bilateral ischial tuberosities. Status post total bilateral hip replacements are noted with implants appearing in good position. There is no evidence of implant loosening or new associated left or right hip fracture. There is heterotopic bone superior to the left hip area. RAD/HIP, UNI W/ Pelvis 2-3 Views IMPRESSION: Slightly displaced fractures of the medial left inferior and superior pubic rami, appearing acute. Status post total bilateral hip replacements noted with implants appearing in good position. There is soft tissue heterotopic bone superior to the left hip. Electronically Signed: Paulo Helms MD at 19:49 EST , Service support ,
--- NOTE | 2019-05-01 18:39 | RAD_ITS ---
STUDY: X-RAY - LUMBAR SPINE REASON FOR EXAM: Female, 78 years old. FALL TODAY, PAIN TECHNIQUE: 3 view(s) of the lumbar spine were obtained. COMPARISON: None FINDINGS: Normal lumbar lordosis. There is no substantial scoliosis. There is a normal alignment of the vertebrae. Normal vertebral bodies and endplates. There is narrowing of the L1-2 disc space with sclerosis of the adjacent endplates. There is no demonstrated fracture. Vascular calcifications are seen in the left upper quadrant of the abdomen. RAD/Lumbar Spine 2 or 3 Views IMPRESSION: Narrowing of the L1-2 disc space with sclerosis of the adjacent endplates. There is no evidence of lumbar spinal fracture or spondylolisthesis. Electronically Signed: Paulo Helms MD at 19:57 EST , Service support ,
--- NOTE | 2019-05-01 18:45 | NURSING ---
Upon entering patients room to discharge her, this RN saw patient laying on floor with patients daughter standing beside her stunned and upset that she had fallen. The patient had just been take to the restroom and assisted with changing her clothes by the ECONOMICS FACULTY MEMBER and helped back to the Chair to wait on this RNs arrival to go over DC instructions. The patients daughter stated that she had her back turned to the patient while packing her belongings up and did not witness the patient stand on her own and fall. Upon assessment of the patient, her VS were stable, she was A&Ox3, PERRLA, denied dizziness or fainting. She was assisted up to a standing position using gait belt and 2 RNs to lift. She did complain of slight increase in pain to left hip and she states she landed on her left hip and partially caught herself with left hand but denied pain in left hand or arm. She also denied dizziness, fainting or losing consciousness. Dr. Wiseman was then notified. He ordered Xray of left hip/pelvis and L-spine, cancel discharge, Orthostatic VS check.
[2019-05-01] MEDS: Latanoprost 0.005% 1 Bottle 1 DRP EACH EYE (21:10)
[2019-05-01] MEDS: Atorvastatin Calcium 20 MG Tablet PO (21:22)
[2019-05-02] VITALS (11 sets, daily range): BP systolic 123–145; BP diastolic 64–78; PULSE 64–74; RESP 14–18; TEMP 36.4–36.9; O2SAT 95–99
[2019-05-02] MEDS: Acetaminophen 500 MG Tablet 1000 MG PO ×3 (06:05→22:36)
[2019-05-02 08:45] LABS: Absolute Lymphocyte Count 1.24 X10^3/uL (0.83-4.51); Absolute Neutrophil Count 7.5 X10^3/uL (2.0-7.7); Basophil# 0.06 X10^3/uL; Basophil% 0.6 % (0-1); Eosinophil# 0.19 X10^3/uL; Eosinophils% 1.8 % (0-5); Hematocrit 36.9 % (37-47); Hemoglobin 11.5 g/dL (12.0-15.0); Lymphocyte # 1.24 X10^3/ul (4.0); Lymphocyte % 11.9 % (19-41); Mean Corp Hgb Conc 31.2 g/dL (32-36); Mean Corpuscular Hgb 33.6 pg (27.0-32.0); Mean Corpuscular Volume 107.9 fL (81-99); Mean Platelet Vol. 11.7 fl (6.2-12.0); Monocyte# 1.36 X10^3/uL; Monocyte% 13.1 % (0-10); NRBC Flagged by Analyzer 0 % (0-5); Neutrophil # 7.49 X10^3/uL (2.7-7.7); Neutrophil % 71.9 % (47-70); POSITIVE MORPHOLOGY YES; Platelet Count 269 K/mm3 (150-450); RBC Distribution Width CV 22.7 % (11.6-14.6); RBC Distribution Width SD 90.8 fl (35.1-43.9); Red Blood Count 3.42 M/mm3 (4.2-5.4); White Blood Count 10.4 K/mm3 (4.4-11.0)
[2019-05-02 08:52] LABS: Differential Indicated SCAN CRITERIA MET
[2019-05-02 08:58] LABS: Anion Gap 4 (5-15); BUN 52 mg/dL (7-18); BUN/Creat Ratio 24.9 RATIO (10-20); Calcium,Total 8.7 mg/dL (8.5-10.1); Chloride 108 mmol/L (98-107); Creatinine, Serum 2.09 mg/dL (0.55-1.02); EST Glomerular Filtration Rate 24 mL/min (>60); Est Glom Filt Rate - Afr Amer 29 mL/min (>60); Estimated Creatinine Clearance 16.85 ml/min; Glucose 122 mg/dL (74-106); Potassium 4.5 mmol/L (3.5-5.1); Sodium Level 142 mmol/L (136-145)
--- NOTE | 2019-05-02 08:58 | PCM.TXEXTCAR ---
- Diet 04/28/19 18:42 Diet: Cardiac/Low Cholesterol Food consistency:: Regular Liquid Consistency:: Regular/Thin Is pt able to select menu?: Yes - Routine Orders/Code Status Suppository Type: Dulcolax 10mg Suppository Frequency: Daily PRN Routine Lab Work: CBC, BMP - every week , next one 05/08/2019 - Wound(s) BLE Wound Type: small areas of seeping rt ascencio Wound Type: scab rt ascencio - Therapies Weight Bearing: Partial weight bearing Physical Therapy: Eval and Treat Occupational Therapy: Eval and Treat Speech Therapy: Eval and Treat - Allergies/Procedures Done in Hospital Allergies/Adverse Reactions: Allergies adalimumab [From Humira] Allergy (Verified 04/28/19 15:18) Rash ciprofloxacin HCl [From Cipro] Allergy (Verified 04/28/19 15:18) Unknown doxazosin Allergy (Verified 04/28/19 15:18) Other hydroxyzine [From Vistaril] Allergy (Verified 04/28/19 15:18) Other latex Allergy (Verified 04/28/19 15:18) Rash levofloxacin [From Levaquin] Allergy (Verified 04/28/19 15:18) Unknown lisinopril Allergy (Verified 04/28/19 15:18) Other COUGH Methotrexate Analogues Allergy (Verified 04/28/19 15:18) Hives naproxen Allergy (Verified 04/28/19 15:18) Unknown potassium clavulanate [From Augmentin] Allergy (Verified 04/28/19 15:18) Unknown Sulfa (Sulfonamide Antibiotics) Allergy (Verified 04/28/19 15:18) Unknown amlodipine Adverse Reaction (Severe, Verified 04/28/19 15:18) edema haloperidol lactate [From Haldol] Adverse Reaction (Unknown, Verified 04/28/19 15:18) agitation amoxicillin trihydrate [From Augmentin] Adverse Reaction (Verified 04/28/19 15:18) Upset Stomach hydromorphone HCl [From Dilaudid] Adverse Reaction (Verified 04/28/19 15:18) Other HALLUCINATIONS hydroxychloroquine sulfate [From Plaquenil] Adverse Reaction (Verified 04/28/19 15:18) Other VISION ISSUES - Type of Care/Length of Stay Estimated LOS: Convalescent Care Less Than 30 days Type of Care Needed: Skilled Rehab Potential: Good Prognosis: Good - Dietary and Speech Recommendations Dietitian Recommendations/Changes: Continue cardiac, low sodium diet w/ fluid restriction as indicated. - Follow Up Care Primary Care Physician: Demarco Lopez MD [Primary Care Provider] - Please follow up with your Primary Care Physician in: in 2 weeks Please Follow Up With: Zeferino Farrar MD When: in 1 week with follow up BMP Please Follow Up With: Nahid Hernandez MD When: IN 4 WEEKS
--- NOTE | 2019-05-02 09:04 | PCM.PN.HOSP ---
Patient Problems: Active and Suspected Problems (Last Reviewed 06/21/18 @ 14:11 by Nahid Hernandez MD) Pleural effusion, left (Acute) Dyspnea (Acute) Lower extremity edema (Acute) Reason for Visit: Patient fell down last evening while trying to get out of the chair in order to go home. I was called at about 6:45 PM by the nursing staff that patient fell down. She still complained of pain over the left groin on movement. At rest the pain is minimal or none. Pelvic x-ray left hip was independently reviewed and shows slightly displaced fracture of the left inferior and superior pubic x-ray which seems acute. It is reported as slightly displaced fracture of medial left inferior and superior pubic rami appearing acute. Status post bilateral hip replacement noted with implants appearing in good position. No evidence of lumbar spine fracture or spondylolisthesis. Denies shortness of breath. Objective: General: Alert, Oriented x3, Cooperative HEENT: Atraumatic, PERRLA, EOMI, Normocephalic Neck: Supple, No JVD, Negative Carotid Bruits Lungs: No rhonchi, No wheeze, No rales, Air entry is slightly diminished in the right lung base but has improved since admission. Cardiovascular: Regular rate, Regular Rhythm, Normal S1, Normal S2, No murmurs Abdomen: Bowel Sounds Present, Soft, Non Tender, Non-Distended Extremities: Capillary Refill Less than 3 Seconds, Edema Skin: -Minimal leg edema. Weeping has resolved. Skin condition is better Musculoskeletal: Tenderness in the left groin over pubic bone. Bilateral hip replacement. Arthritic Changes Neurological: Cranial nerves II-XII grossly intact Psych/Mental Status: Normal Affect, Appropriate Vitals/I&O's: Vital Signs Temp Pulse Resp BP Pulse Ox 98.5 F 71 16 145/78 H 97 05/02/19 09:02 05/02/19 09:02 05/02/19 09:02 05/02/19 09:02 05/02/19 09:02 Oxygen Flow Rate (L/min) 2 Oxygen Delivery Method Room Air Weight: 107 lb 12.897 oz Body Mass Index (BMI) 19.9 Orthostatic Vital Signs Start: 05/01/19 20:37 Freq: q24h Status: Active Protocol: Activity Type Activity Date Activity User E-Sign Co-Sign Detail Recorded Client Recorded Date Recorded By Document 05/01/19 20:37 [facility] [id number] 05/01/19 20:38 [facility] 05/01/19 20:37 Orthostatic Vitals Sitting -Blood Pressure (90/60-120/80) 154/74 H -Extremity Use Right Arm -Pulse Rate (60-100) 71 Lying -Blood Pressure (90/60-120/80) 153/74 H -Extremity Use Right Arm -Pulse Rate (60-100) 71 Intake and Output for Last 24 Hours 04/30/19 05/01/19 05/02/19 23:59 23:59 23:59 Intake Total 740 / 990 300 / 300 Output Total 700 / 700 200 / 200 Balance 740 / 590 -400 / -400 -200 / -200 Microbiology Past 72 Hours 04/28/19 16:30 Urine, Clean Catch Urine Culture - Final Culture exhibits no growth. Laboratory Results 05/01/19 05:00: Triglycerides 183, Cholesterol 109, LDL Cholesterol 44, VLDL Cholesterol 37, HDL Cholesterol 28 L 05/02/19 08:30: WBC 10.4, RBC 3.42 L, Hgb 11.5 L, Hct 36.9 L, MCV 107.9 H, MCH 33.6 H, MCHC 31.2 L, RDW Std Deviation 90.8 H, RDW Coeff of Myke 22.7 H, Plt Count 269, MPV 11.7, Immature Gran % (Auto) 0.700, Neut % (Auto) 71.9 H, Lymph % (Auto) 11.9 L, [place] % (Auto) 13.1 H, Eos % (Auto) 1.8, Baso % (Auto) 0.6, Absolute Neuts (auto) 7.5, Absolute Lymphs (auto) 1.24, Nucleated RBC % 0 05/02/19 08:30: Sodium 142, Potassium 4.5, Chloride 108 H, Carbon Dioxide 30.0, Anion Gap 4 L, BUN 52 H, Creatinine 2.09 H, Estim Creat Clear Calc 16.85, Est GFR (MDRD) Af Amer 29 L, Est GFR (MDRD) Non-Af 24 L, BUN/Creatinine Ratio 24.9 H, Glucose 122 H, Calcium 8.7 Current Medications Acetaminophen (Tylenol) 1,000 mg PO Q8 [facility] Last Admin: 05/02/19 06:05 Dose: 1,000 mg Documented by: Albuterol Sulfate (Ventolin Aerosols) 2.5 mg INHALATION Q2H PRN PRN PRN Reason: SOB/Wheezing Atorvastatin Calcium (Lipitor) 20 mg PO QHS [facility] Last Admin: 05/01/19 21:22 Dose: 20 mg Documented by: Brimonidine Tartrate (Brimonidine 0.2% 5ml Bottle) 1 drop EACH EYE BID [facility] Last Admin: 05/01/19 21:09 Dose: 1 drop Documented by: Dextrose (D50w Syringe) 0 gm IV X1 PRN; Protocol PRN Reason: Hypoglycemia Enoxaparin Sodium (Lovenox) 30 mg SC DAILY [facility] Last Admin: 05/01/19 08:27 Dose: 30 mg Documented by: Fluorometholone (Flarex) 1 drop OP BID [facility] Last Admin: 05/01/19 21:20 Dose: Not Given Documented by: Furosemide (Lasix) 40 mg PO DAILY [facility] Glucagon () 1 mg IM .X1 PRN PRN Reason: Hypoglycemia Heparin Sodium (Beef Lung) () 50 units IV UD PRN PRN Reason: Port-a-Cath (VAD)Heparin Flush Last Admin: 05/01/19 17:56 Dose: 50 units Documented by: Hydralazine HCl (Apresoline Iv) 10 mg IV Q4H PRN PRN PRN Reason: SBP > 160 Isosorbide Mononitrate (Imdur) 60 mg PO DAILY [facility] Last Admin: 05/01/19 08:26 Dose: 60 mg Documented by: Latanoprost (Xalatan Opthalmic) 1 drop EACH EYE QHS [facility] Last Admin: 05/01/19 21:10 Dose: 1 drop Documented by: Metoprolol Tartrate (Lopressor (Beta Brandyn)) 75 mg PO BID [facility] Last Admin: 05/01/19 21:21 Dose: 75 mg Documented by: Miconazole Nitrate (Monistat-Derm, Micatin) 1 applic TOPICAL BID [facility]; Protocol Last Admin: 05/01/19 21:19 Dose: Not Given Documented by: Morphine Sulfate () 2 mg IV Q4H PRN PRN PRN Reason: Pain Score 6-10/10 Nitroglycerin (Nitrostat) 0.4 mg SUBLINGUAL Q5M PRN PRN Reason: CARDIAC/CHEST PAIN Nutritional Formula (Lactose Free) (Ensure Enlive) 120 ml PO DAILY [facility] Last Admin: 05/01/19 08:34 Dose: 120 ml Documented by: Ondansetron HCl (Zofran) 4 mg IV Q8H PRN PRN PRN Reason: NAUSEA/VOMITING Oxycodone HCl (Oxyir) 5 mg PO Q4H PRN PRN PRN Reason: Pain Score 6-10/10 Potassium Chloride (K-Dur) 10 meq PO QHS [facility] Last Admin: 05/01/19 21:20 Dose: 10 meq Documented by: Ranolazine (Ranexa) 1,000 mg PO BID [facility] Last Admin: 05/01/19 21:21 Dose: 1,000 mg Documented by: Sodium Chloride () 10 - 40 ml IV UD PRN PRN Reason: SALINE FLUSH Last Admin: 05/01/19 17:56 Dose: 10 ml Documented by: Timolol Maleate (Timoptic) 1 drop OPHTHALMIC BID [facility] Last Admin: 05/01/19 21:10 Dose: 1 drop Documented by: STROKE Vital Signs/Narrative: Vital Signs Temp Pulse Resp BP Pulse Ox 05/02/19 09:02 98.5 F 71 16 145/78 H 97 05/02/19 07:00 68 Medical Necessity - Tobacco Use Smoking Status: Never smoker Tobacco Use: Non-smoker Assessment/Plan All Active Problems (Last Reviewed 06/21/18 @ 14:11 by Nahid Hernandez MD) Pleural effusion, left (Acute) Dyspnea (Acute) Lower extremity edema (Acute) Scalp laceration (Acute) Recurrent falls (Acute) Closed fracture of left inferior pubic ramus (Acute) Injury of left shoulder and upper arm (Acute) History of coronary artery stent placement (Resolved 05/21/09) ARF (acute renal failure) (Resolved) Fracture of femoral neck, left (Resolved) Hypertensive emergency (Resolved) Pyelonephritis, acute (Resolved) This is a 78-year-old female with multiple comorbidities including coronary artery disease, chronic heart failure, CKD stage IV was admitted with progressive worsening of shortness of breath, lower extremity edema, elevated BNP more than 50,000, chest x-ray findings of left pleural effusion suggestive of acute on chronic heart failure with preserved EF. 1. Acute on chronic heart failure with preserved ejection fraction: The patient is being admitted in PCU. EKG reviewed. No normal sinus rhythm at 69 bpm with bifascicular block, RBBB plus LAFB. Patient was seen by timber management professor. Started on Lasix drip. Other core measures of heart failure followed including fluid restriction, strict input and output and daily weight monitoring. 2D echo 2014: EF of 65% with stage II diastolic dysfunction and no regional wall motion abnormalities noted. No pericardial effusion RVSP was 32 mmHg. The echo done. April 30, 2019: 2D echo reported as Normal LV size. The estimated ejection fraction is 20 %. Stage 1 diastolic dysfunction. Moderate (2+) eccentric mitral valve insufficiency. Pulmonary artery systolic pressure is 36 mmHg. Mild (1+) aortic valve insufficiency. Compared to the previous there is significant decline in the function. Contrast injection was performed. 05/01/19: Discussed with timber management professor and test inspection engineer. Continue diuresis. Patient had negative balance of about 100 mL. Her weight has decreased from 116 to 106 pound therefore intake and output is probably inaccurate. In the evening, discharge was held secondary to fall. 05/02/19: Lung auscultation has improved. CBC and BMP reviewed. Weight has slightly increased to 107 pound. Resume Lasix 40 twice daily. 2. Acute superior inferior pubic rami fracture of left pelvis: Patient has tenderness over left groin. Left hip x-ray reported as slightly displaced fracture of medial left inferior and superior pubic rami appearing acute. Status post bilateral hip replacement noted with implants appearing in good position. No evidence of lumbar spine fracture or spondylolisthesis. Continue PT and OT. Discussed with family caseworker. Need SNF placement. Outpatient Ortho follow-up in 2 weeks. 3. Coronary artery disease with indeterminate troponins: Serial troponins are mildly elevated 0.4?3. Flat and indeterminate. Probably secondary to fluid overload from heart failure.Currently on Imdur and metoprolol and ranolazine.. Sublingual nitroglycerin as needed. Patient had cardiac cath in 05/2018. Cath findings normal left main coronary artery and moderate luminal irregularities up to 50% in the LAD and moderate luminal irregularities in the circumflex and first diagonal arteries as well. She had 80% stenosis in the right coronary artery with an in-stent 95% stenosis and collateral flow from left to right. At that time, she has not had a candidate for PCI because of severe anemia not taking for long-term aspirin and Plavix. And medical therapy was recommended. 3. CKD stage IV: Patient baseline creatinine is around 2.25-2.5. As patient is on IV diuresis and expected creatinine to go up therefore [facility] test inspection engineer was consulted who they have seen in the past. Urine culture is negative. 05/02: Kidney function is stable, BUN/creatinine 52/2.09. 4. History of Sjogren's disease and rheumatoid arthritis. stable. 5. Hyperlipidemia: on statin 6. Recent history of right hip fracture Managed conservatively. Currently stable. Consult PT OT. DVT prophylaxis: Lovenox Total time of the visit including total time spent in counseling or coordination of care, (more than 50% of the total time, spent in obtaining medical information from nurses and other ancillary care providers), review of labs and imaging, explaining the fracture of left pelvis and need for rehab is 40 minutes Code Visit Inpatient E&M: 98283 Subs Hosp L3
[2019-05-02] MEDS: Isosorbide Mononitrate 60 MG Tablet PO (09:06)
[2019-05-02] MEDS: Metoprolol Tartrate 50 MG Tablet 75 MG PO ×2 (09:06→22:37)
[2019-05-02] MEDS: Furosemide 40 MG Tablet PO (09:06)
[2019-05-02] MEDS: Enoxaparin 30 MG/0.3 ML Syringe SC (09:06)
[2019-05-02] MEDS: Timolol 0.5% 5ML OPTH.BTL 1 DRP OPHTHALMIC ×2 (09:07→22:37)
[2019-05-02] MEDS: LIFITEGRAST 1 EACH DROPERETTE OP ×2 (09:08→22:38)
[2019-05-02] MEDS: BRIMONIDINE 0.2% 5ML BOTTLE 1 DRP EACH EYE ×2 (09:08→22:37)
[2019-05-02 09:13] LABS: Anisocytosis 1+
[2019-05-02] MEDS: Ranolazine 500 MG Tablet 1000 MG PO ×2 (09:13→22:36)
--- NOTE | 2019-05-02 10:32 | CASEMGMT ---
Social Work SW met with pt in room and introduced self and role. Pt was planning on returning home yesterday, but as getting ready for d/c pt fell with pelvis fx. Pt acknowledging that she will likely need SNF now. Therapy to reevaluate today. List of in network facilities given to pt and she would prefer [facility]. VM left of referral line at TCU. With pt permission, phone call to pt dgt per dgt request and updated on in network facilities. Pt dgt agreeable to TCU. SW requested pt and dgt make second choice should bed not be available. SW to follow for SNF placement. NISHANT Coleman
--- NOTE | 2019-05-02 11:40 | PN_ITS ---
Patient Problems: Active and Suspected Problems (Last Reviewed 06/21/18 @ 14:11 by Nahid Hernandez MD) Pleural effusion, left (Acute) Dyspnea (Acute) Lower extremity edema (Acute) Subjective: She had a fall last evening and now has pain in the groin no shortness of breath no chest pain - Physical Exam Vitals/I&O's: Vital Signs Temp Pulse Resp BP Pulse Ox 98.5 F 71 16 145/78 H 97 05/02/19 09:02 05/02/19 09:06 05/02/19 09:02 05/02/19 09:02 05/02/19 09:02 Oxygen Flow Rate (L/min) 2 Oxygen Delivery Method Room Air Weight: 48.9 kg Body Mass Index (BMI) 19.9 Orthostatic Vital Signs Start: 05/01/19 20:37 Freq: q24h Status: Active Protocol: Activity Type Activity Date Activity User E-Sign Co-Sign Detail Recorded Client Recorded Date Recorded By Document 05/01/19 20:37 [facility] [place] [id number] 05/01/19 20:38 [facility] [place] 05/01/19 20:37 Orthostatic Vitals Sitting -Blood Pressure (90/60-120/80) 154/74 H -Extremity Use Right Arm -Pulse Rate (60-100) 71 Lying -Blood Pressure (90/60-120/80) 153/74 H -Extremity Use Right Arm -Pulse Rate (60-100) 71 Intake and Output for Last 24 Hours 04/30/19 05/01/19 05/02/19 23:59 23:59 23:59 Intake Total 740 / 990 300 / 300 Output Total 700 / 700 200 / 200 Balance 740 / 590 -400 / -400 -200 / -200 General: Alert, Oriented x3, Cooperative HEENT: Atraumatic, PERRLA, EOMI, Normocephalic Neck: Supple, No JVD, Negative Carotid Bruits Lungs: Clear to auscultation, Normal air movement Cardiovascular: Regular rate, No murmurs Abdomen: Bowel Sounds Present, Soft, Non Tender Extremities: Capillary Refill Less than 3 Seconds, Edema Skin: No rashes, No breakdown Musculoskeletal: No Tenderness to Palpation of Joints or Extremities Neurological: Cranial nerves II-XII grossly intact Psych/Mental Status: Normal Affect, Appropriate Microbiology Past 72 Hours 04/28/19 16:30 Urine, Clean Catch Urine Culture - Final Culture exhibits no growth. Laboratory Results 05/01/19 05:00: Triglycerides 183, Cholesterol 109, LDL Cholesterol 44, VLDL Cholesterol 37, HDL Cholesterol 28 L 05/02/19 08:30: WBC 10.4, RBC 3.42 L, Hgb 11.5 L, Hct 36.9 L, MCV 107.9 H, MCH 33.6 H, MCHC 31.2 L, RDW Std Deviation 90.8 H, RDW Coeff of Myke 22.7 H, Plt Count 269, MPV 11.7, Immature Gran % (Auto) 0.700, Neut % (Auto) 71.9 H, Lymph % (Auto) 11.9 L, [place] % (Auto) 13.1 H, Eos % (Auto) 1.8, Baso % (Auto) 0.6, Absolute Neuts (auto) 7.5, Absolute Lymphs (auto) 1.24, Nucleated RBC % 0, Anisocytosis 1+ 05/02/19 08:30: Sodium 142, Potassium 4.5, Chloride 108 H, Carbon Dioxide 30.0, Anion Gap 4 L, BUN 52 H, Creatinine 2.09 H, Estim Creat Clear Calc 16.85, Est GFR (MDRD) Af Amer 29 L, Est GFR (MDRD) Non-Af 24 L, BUN/Creatinine Ratio 24.9 H , Glucose 122 H, Calcium 8.7 Current Medications Acetaminophen (Tylenol) 1,000 mg PO Q8 [facility] Last Admin: 05/02/19 06:05 Dose: 1,000 mg Documented by: Albuterol Sulfate (Ventolin Aerosols) 2.5 mg INHALATION Q2H PRN PRN PRN Reason: SOB/Wheezing Atorvastatin Calcium (Lipitor) 20 mg PO QHS [facility] Last Admin: 05/01/19 21:22 Dose: 20 mg Documented by: Brimonidine Tartrate (Brimonidine 0.2% 5ml Bottle) 1 drop EACH EYE BID [facility] Last Admin: 05/02/19 09:08 Dose: 1 drop Documented by: Dextrose (D50w Syringe) 0 gm IV X1 PRN; Protocol PRN Reason: Hypoglycemia Enoxaparin Sodium (Lovenox) 30 mg SC DAILY [facility] Last Admin: 05/02/19 09:06 Dose: 30 mg Documented by: Fluorometholone (Flarex) 1 drop OP BID [facility] Last Admin: 05/02/19 09:09 Dose: Not Given Documented by: Furosemide (Lasix) 40 mg PO DAILY [facility] Last Admin: 05/02/19 09:06 Dose: 40 mg Documented by: Glucagon () 1 mg IM .X1 PRN PRN Reason: Hypoglycemia Heparin Sodium (Beef Lung) () 50 units IV UD PRN PRN Reason: Port-a-Cath (VAD)Heparin Flush Last Admin: 05/01/19 17:56 Dose: 50 units Documented by: Hydralazine HCl (Apresoline Iv) 10 mg IV Q4H PRN PRN PRN Reason: SBP > 160 Isosorbide Mononitrate (Imdur) 60 mg PO DAILY [facility] Last Admin: 05/02/19 09:06 Dose: 60 mg Documented by: Latanoprost (Xalatan Opthalmic) 1 drop EACH EYE QHS [facility] Last Admin: 05/01/19 21:10 Dose: 1 drop Documented by: Metoprolol Tartrate (Lopressor (Beta Brandyn)) 75 mg PO BID [facility] Last Admin: 05/02/19 09:06 Dose: 75 mg Documented by: Miconazole Nitrate (Monistat-Derm, Micatin) 1 applic TOPICAL BID [facility]; Protocol Last Admin: 05/02/19 09:05 Dose: Not Given Documented by: Morphine Sulfate () 2 mg IV Q4H PRN PRN PRN Reason: Pain Score 6-10/10 Nitroglycerin (Nitrostat) 0.4 mg SUBLINGUAL Q5M PRN PRN Reason: CARDIAC/CHEST PAIN Nutritional Formula (Lactose Free) (Ensure Enlive) 120 ml PO DAILY [facility] Last Admin: 05/02/19 09:09 Dose: 120 ml Documented by: Ondansetron HCl (Zofran) 4 mg IV Q8H PRN PRN PRN Reason: NAUSEA/VOMITING Oxycodone HCl (Oxyir) 5 mg PO Q4H PRN PRN PRN Reason: Pain Score 6-10/10 Potassium Chloride (K-Dur) 10 meq PO QHS [facility] Last Admin: 05/01/19 21:20 Dose: 10 meq Documented by: Ranolazine (Ranexa) 1,000 mg PO BID [facility] Last Admin: 05/02/19 09:13 Dose: 1,000 mg Documented by: Sodium Chloride () 10 - 40 ml IV UD PRN PRN Reason: SALINE FLUSH Last Admin: 05/01/19 17:56 Dose: 10 ml Documented by: Timolol Maleate (Timoptic) 1 drop OPHTHALMIC BID [facility] Last Admin: 05/02/19 09:07 Dose: 1 drop Documented by: Medical Necessity - Tobacco Use Smoking Status: Never smoker Tobacco Use: Non-smoker Assessment/Plan All Active Problems (Last Reviewed 06/21/18 @ 14:11 by Nahid Hernandez MD) Pleural effusion, left (Acute) Dyspnea (Acute) Lower extremity edema (Acute) Scalp laceration (Acute) Recurrent falls (Acute) Closed fracture of left inferior pubic ramus (Acute) Injury of left shoulder and upper arm (Acute) History of coronary artery stent placement (Resolved 05/21/09) ARF (acute renal failure) (Resolved) Fracture of femoral neck, left (Resolved) Hypertensive emergency (Resolved) Pyelonephritis, acute (Resolved) CKD baseline creatinine 2-2.5 LE edema HF Patient is currently on a Lasix po bid Creatinine 2. 09 which is consistent with her baseline. bp acceptable monitor Avoid nephrotoxins and overdiuresis T
--- NOTE | 2019-05-02 13:28 | CASEMGMT ---
Addendum entered by Lay Yuen 05/02/19 15:33: [facility] is able to accept pt and will start precert today. Likely will not hear back until Sunday. Pt notified and understanding. Plan: [facility], pending insurance NISHANT Donovan Original Note: Social Work Return call from [facility] and they do not have a bed available. SW spoke with pt and dgt and next choice is [facility]. Referral to [facility] at [facility]. They are not in network but have been able to get one time contracts and the rate is the same or better for pt. Referral faxed. Will await determination if they can accept. Pt and dgt aware. NISHANT Coleman
[2019-05-02] MEDS: Atorvastatin Calcium 20 MG Tablet PO (22:36)
[2019-05-02] MEDS: Latanoprost 0.005% 1 Bottle 1 DRP EACH EYE (22:37)
[2019-05-03] VITALS (10 sets, daily range): BP systolic 138–154; BP diastolic 70–76; PULSE 64–74; RESP 14–16; TEMP 35.9–37; O2SAT 96–98
[2019-05-03] MEDS: oxyCODONE 5 MG Tablet PO (05:16)
[2019-05-03] MEDS: Acetaminophen 500 MG Tablet 1000 MG PO ×3 (06:32→21:06)
[2019-05-03] MEDS: Furosemide 40 MG Tablet PO (08:22)
[2019-05-03] MEDS: Isosorbide Mononitrate 60 MG Tablet PO (08:22)
[2019-05-03] MEDS: BRIMONIDINE 0.2% 5ML BOTTLE 1 DRP EACH EYE ×2 (08:23→21:09)
[2019-05-03] MEDS: Metoprolol Tartrate 50 MG Tablet 75 MG PO ×2 (08:24→21:05)
[2019-05-03] MEDS: Ranolazine 500 MG Tablet 1000 MG PO ×2 (08:25→21:06)
[2019-05-03] MEDS: Enoxaparin 30 MG/0.3 ML Syringe SC (08:25)
[2019-05-03] MEDS: Timolol 0.5% 5ML OPTH.BTL 1 DRP OPHTHALMIC ×2 (08:25→21:08)
[2019-05-03] MEDS: LIFITEGRAST 1 EACH DROPERETTE OP ×2 (08:26→21:11)
[2019-05-03] MEDS: 0.9% Saline Lock 10 ML Syringe IV (13:29)
[2019-05-03] MEDS: Calcium Carb/Vitamin D 1 TABLET Tablet PO ×2 (13:29→17:15)
--- NOTE | 2019-05-03 13:36 | PCM.PN.HOSP ---
Patient Problems: Active and Suspected Problems (Last Reviewed 06/21/18 @ 14:11 by Nahid Hernandez MD) Pleural effusion, left (Acute) Dyspnea (Acute) Lower extremity edema (Acute) Reason for Visit: Patient is pending precertification for SNF placement. Her left superior pubic and inferior ramus fractures after a fall. Objective: No shortness of breath. Pain at left groin is better than yesterday. Seen and examined. Physical exam: eneral: Alert, Oriented x3, Cooperative HEENT: Atraumatic, PERRLA, EOMI, Normocephalic Neck: Supple, No JVD, Negative Carotid Bruits Lungs: No rhonchi, No wheeze, No rales, Air entry is slightly diminished in the right lung base. Cardiovascular: Regular rate, Regular Rhythm, Normal S1, Normal S2, No murmurs Abdomen: Bowel Sounds Present, Soft, Non Tender, Non-Distended Extremities: Capillary Refill Less than 3 Seconds, Edema Skin: -Minimal leg edema. Weeping has resolved. Skin condition is better Musculoskeletal: Tenderness in the left groin over pubic bone. Bilateral hip replacement. Arthritic Changes Neurological: Cranial nerves II-XII grossly intact Psych/Mental Status: Normal Affect, Appropriate Vitals/I&O's: Vital Signs Temp Pulse Resp BP Pulse Ox 96.6 F L 64 16 138/71 H 97 05/03/19 13:28 05/03/19 13:28 05/03/19 13:28 05/03/19 13:28 05/03/19 13:28 Oxygen Flow Rate (L/min) 2 Oxygen Delivery Method Room Air Weight: 106 lb 14.787 oz Body Mass Index (BMI) 19.9 Orthostatic Vital Signs Start: 05/01/19 20:37 Freq: q24h Status: Active Protocol: Activity Type Activity Date Activity User E-Sign Co-Sign Detail Recorded Client Recorded Date Recorded By Document 05/01/19 20:37 [facility] [id number] 05/01/19 20:38 [facility] 05/01/19 20:37 Orthostatic Vitals Sitting -Blood Pressure (90/60-120/80) 154/74 H -Extremity Use Right Arm -Pulse Rate (60-100) 71 Lying -Blood Pressure (90/60-120/80) 153/74 H -Extremity Use Right Arm -Pulse Rate (60-100) 71 Intake and Output for Last 24 Hours 05/01/19 05/02/19 05/03/19 23:59 23:59 23:59 Intake Total 300 / 300 790 / 790 380 / 380 Output Total 700 / 700 600 / 600 Balance -400 / -400 190 / 190 380 / 380 Microbiology Past 72 Hours 04/28/19 16:30 Urine, Clean Catch Urine Culture - Final Culture exhibits no growth. Laboratory Results 05/03/19 11:08: Vitamin D 25-Hydroxy Pending Current Medications Acetaminophen (Tylenol) 1,000 mg PO Q8 [facility] Last Admin: 05/03/19 13:29 Dose: 1,000 mg Documented by: Albuterol Sulfate (Ventolin Aerosols) 2.5 mg INHALATION Q2H PRN PRN PRN Reason: SOB/Wheezing Atorvastatin Calcium (Lipitor) 20 mg PO QHS [facility] Last Admin: 05/02/19 22:36 Dose: 20 mg Documented by: Brimonidine Tartrate (Brimonidine 0.2% 5ml Bottle) 1 drop EACH EYE BID [facility] Last Admin: 05/03/19 08:23 Dose: 1 drop Documented by: Calcium/Vitamin D (Os-Osmany 500mg + D) 1 tablet PO BIDCM [facility] Last Admin: 05/03/19 13:29 Dose: 1 tablet Documented by: Dextrose (D50w Syringe) 0 gm IV X1 PRN; Protocol PRN Reason: Hypoglycemia Enoxaparin Sodium (Lovenox) 30 mg SC DAILY [facility] Last Admin: 05/03/19 08:25 Dose: 30 mg Documented by: Furosemide (Lasix) 40 mg PO BID@1000,1800 [facility] Glucagon () 1 mg IM .X1 PRN PRN Reason: Hypoglycemia Heparin Sodium (Beef Lung) () 50 units IV UD PRN PRN Reason: Port-a-Cath (VAD)Heparin Flush Last Admin: 05/01/19 17:56 Dose: 50 units Documented by: Hydralazine HCl (Apresoline Iv) 10 mg IV Q4H PRN PRN PRN Reason: SBP > 160 Isosorbide Mononitrate (Imdur) 60 mg PO DAILY [facility] Last Admin: 05/03/19 08:22 Dose: 60 mg Documented by: Latanoprost (Xalatan Opthalmic) 1 drop EACH EYE QHS [facility] Last Admin: 05/02/19 22:37 Dose: 1 drop Documented by: Metoprolol Tartrate (Lopressor (Beta Brandyn)) 75 mg PO BID [facility] Last Admin: 05/03/19 08:24 Dose: 75 mg Documented by: Miconazole Nitrate (Monistat-Derm, Micatin) 1 applic TOPICAL BID [facility]; Protocol Last Admin: 05/03/19 08:25 Dose: Not Given Documented by: Morphine Sulfate () 2 mg IV Q4H PRN PRN PRN Reason: Pain Score 6-10/10 Nitroglycerin (Nitrostat) 0.4 mg SUBLINGUAL Q5M PRN PRN Reason: CARDIAC/CHEST PAIN Nutritional Formula (Lactose Free) (Ensure Enlive) 120 ml PO DAILY [facility] Last Admin: 05/03/19 08:22 Dose: 120 ml Documented by: Ondansetron HCl (Zofran) 4 mg IV Q8H PRN PRN PRN Reason: NAUSEA/VOMITING Oxycodone HCl (Oxyir) 5 mg PO Q4H PRN PRN PRN Reason: Pain Score 6-10/10 Last Admin: 05/03/19 05:16 Dose: 5 mg Documented by: Potassium Chloride (K-Dur) 10 meq PO QHS [facility] Last Admin: 05/02/19 22:36 Dose: 10 meq Documented by: Ranolazine (Ranexa) 1,000 mg PO BID [facility] Last Admin: 05/03/19 08:25 Dose: 1,000 mg Documented by: Sodium Chloride () 10 - 40 ml IV UD PRN PRN Reason: SALINE FLUSH Last Admin: 05/03/19 13:29 Dose: 20 ml Documented by: Timolol Maleate (Timoptic) 1 drop OPHTHALMIC BID [facility] Last Admin: 05/03/19 08:25 Dose: 1 drop Documented by: STROKE Vital Signs/Narrative: Vital Signs Temp Pulse Resp BP Pulse Ox 05/03/19 13:28 96.6 F L 64 16 138/71 H 97 Medical Necessity - Tobacco Use Smoking Status: Never smoker Tobacco Use: Non-smoker Assessment/Plan All Active Problems (Last Reviewed 06/21/18 @ 14:11 by Nahid Hernandez MD) Pleural effusion, left (Acute) Dyspnea (Acute) Lower extremity edema (Acute) Scalp laceration (Acute) Recurrent falls (Acute) Closed fracture of left inferior pubic ramus (Acute) Injury of left shoulder and upper arm (Acute) History of coronary artery stent placement (Resolved 05/21/09) ARF (acute renal failure) (Resolved) Fracture of femoral neck, left (Resolved) Hypertensive emergency (Resolved) Pyelonephritis, acute (Resolved) This is a 78-year-old female with multiple comorbidities including coronary artery disease, chronic heart failure, CKD stage IV was admitted with progressive worsening of shortness of breath, lower extremity edema, elevated BNP more than 50,000, chest x-ray findings of left pleural effusion suggestive of acute on chronic heart failure with preserved EF. 1. Acute on chronic heart failure with preserved ejection fraction: The patient is being admitted in PCU. EKG reviewed. No normal sinus rhythm at 69 bpm with bifascicular block, RBBB plus LAFB. Patient was seen by finished goods planner. Started on Lasix drip. Other core measures of heart failure followed including fluid restriction, strict input and output and daily weight monitoring. 2D echo 2014: EF of 65% with stage II diastolic dysfunction and no regional wall motion abnormalities noted. No pericardial effusion RVSP was 32 mmHg. The echo done. April 30, 2019: 2D echo reported as Normal LV size. The estimated ejection fraction is 20 %. Stage 1 diastolic dysfunction. Moderate (2+) eccentric mitral valve insufficiency. Pulmonary artery systolic pressure is 36 mmHg. Mild (1+) aortic valve insufficiency. Compared to the previous there is significant decline in the function. Contrast injection was performed. 05/01/19: Discussed with finished goods planner and radial drill press operator for plastic. Continue diuresis. Patient had negative balance of about 100 mL. Her weight has decreased from 116 to 106 pound therefore intake and output is probably inaccurate. In the evening, discharge was held secondary to fall. 05/02/19: Lung auscultation has improved. CBC and BMP reviewed. Weight has slightly increased to 107 pound. 05/03/19: She is making 600 to 700 mL urine output daily. Kidney function is stable. We will keep Lasix 40 mg once daily. 2. Acute superior inferior pubic rami fracture of left pelvis: Patient has tenderness over left groin. Left hip x-ray reported as slightly displaced fracture of medial left inferior and superior pubic rami appearing acute. Status post bilateral hip replacement noted with implants appearing in good position. No evidence of lumbar spine fracture or spondylolisthesis. Continue PT and OT. Discussed with pillowcase cleaner. Need SNF placement. Outpatient Ortho follow-up in 2 weeks. Body weight 206 pounds 05/03: Vitamin D level ordered. On calcium vitamin D supplement. 3. Coronary artery disease with indeterminate troponins: Serial troponins are mildly elevated 0.4?3. Flat and indeterminate. Probably secondary to fluid overload from heart failure.Currently on Imdur and metoprolol and ranolazine.. Sublingual nitroglycerin as needed. Patient had cardiac cath in 05/2018. Cath findings normal left main coronary artery and moderate luminal irregularities up to 50% in the LAD and moderate luminal irregularities in the circumflex and first diagonal arteries as well. She had 80% stenosis in the right coronary artery with an in-stent 95% stenosis and collateral flow from left to right. At that time, she has not had a candidate for PCI because of severe anemia not taking for long-term aspirin and Plavix. And medical therapy was recommended. 3. CKD stage IV: Patient baseline creatinine is around 2.25-2.5. As patient is on IV diuresis and expected creatinine to go up therefore [place] radial drill press operator for plastic was consulted who they have seen in the past. Urine culture is negative. 05/02: Kidney function is stable, BUN/creatinine 52/2.09. 4. History of Sjogren's disease and rheumatoid arthritis. stable. 5. Hyperlipidemia: on statin 6. Recent history of right hip fracture Managed conservatively. Currently stable. Consult PT OT. DVT prophylaxis: Lovenox Total time of the visit including total time spent in counseling or coordination of care, (more than 50% of the total time, spent in obtaining medical information from nurses and other ancillary care providers), review of labs and imaging, explaining the fracture of left pelvis and need for rehab is 30 minutes Code Visit Inpatient E&M: 65762 Subs Hosp L2
[2019-05-03] MEDS: Atorvastatin Calcium 20 MG Tablet PO (21:05)
[2019-05-03] MEDS: Latanoprost 0.005% 1 Bottle 1 DRP EACH EYE (21:09)
[2019-05-04] VITALS (11 sets, daily range): BP systolic 132–150; BP diastolic 61–70; PULSE 63–82; RESP 14–16; TEMP 36.4–36.6; O2SAT 95–99
[2019-05-04] MEDS: oxyCODONE 5 MG Tablet PO (01:51)
[2019-05-04] MEDS: Acetaminophen 500 MG Tablet 1000 MG PO ×2 (05:33→21:28)
[2019-05-04] MEDS: 0.9% Saline Lock 10 ML Syringe IV (05:54)
[2019-05-04 06:35] LABS: BUN 50 mg/dL (7-18); BUN/Creat Ratio 24.5 RATIO (10-20); Calcium,Total 9.2 mg/dL (8.5-10.1); Creatinine, Serum 2.04 mg/dL (0.55-1.02); EST Glomerular Filtration Rate 25 mL/min (>60); Est Glom Filt Rate - Afr Amer 30 mL/min (>60); Glucose 108 mg/dL (74-106)
[2019-05-04 06:36] LABS: Anion Gap 6 (5-15); Chloride 107 mmol/L (98-107); Potassium 4.7 mmol/L (3.5-5.1); Sodium Level 141 mmol/L (136-145)
[2019-05-04] MEDS: BRIMONIDINE 0.2% 5ML BOTTLE 1 DRP EACH EYE ×2 (09:45→21:28)
[2019-05-04] MEDS: Furosemide 40 MG Tablet PO (09:46)
[2019-05-04] MEDS: Isosorbide Mononitrate 60 MG Tablet PO (09:46)
[2019-05-04] MEDS: Metoprolol Tartrate 50 MG Tablet 75 MG PO ×2 (09:47→21:28)
[2019-05-04] MEDS: Miconazole Nitrate Cream 1 APPLIC TOPICAL (09:49)
[2019-05-04] MEDS: Ranolazine 500 MG Tablet 1000 MG PO ×2 (09:50→21:27)
[2019-05-04] MEDS: Timolol 0.5% 5ML OPTH.BTL 1 DRP OPHTHALMIC ×2 (09:51→21:28)
[2019-05-04] MEDS: Enoxaparin 30 MG/0.3 ML Syringe SC (09:53)
[2019-05-04] MEDS: LIFITEGRAST 1 EACH DROPERETTE OP ×2 (09:53→21:29)
[2019-05-04] MEDS: Calcium Carb/Vitamin D 1 TABLET Tablet PO ×2 (09:53→15:24)
--- NOTE | 2019-05-04 13:45 | NURSING ---
[employer] insurance called stating patient is denied for senior care. has the opportunity to appeal by calling [phone]. Reference number [id number]. Dr. Bowen lee.
--- NOTE | 2019-05-04 14:12 | CASEMGMT ---
STEVE CM NOTE: Call received from Dr Wiseman. He states insurance has denied SNF for pt. Dr Wiseman states he attempted to do atet-oh-[facility] today but unable to get through. Dr Wiseman feels pt is unsafe to be discharged home and would like [id number] to be done tomorrow/Sunday. Gume MAJOR RN CM
--- NOTE | 2019-05-04 14:41 | PN_ITS ---
Patient Problems: Active and Suspected Problems (Last Reviewed 06/21/18 @ 14:11 by Nahid Hernandez MD) Pleural effusion, left (Acute) Dyspnea (Acute) Lower extremity edema (Acute) Reason for Visit: Follow-up for left superior inferior pubic ramus along with CHF and chronic kidney disease stage IV. Objective: Patient respiratory status is improved. Patient walked by physical therapy. Vitals/I&O's: Vital Signs Temp Pulse Resp BP Pulse Ox 97.9 F 76 16 144/61 H 97 05/04/19 09:40 05/04/19 09:47 05/04/19 09:40 05/04/19 09:47 05/04/19 09:40 Oxygen Flow Rate (L/min) 2 Oxygen Delivery Method Room Air Weight: 108 lb 0.424 oz Body Mass Index (BMI) 19.9 Orthostatic Vital Signs Start: 05/01/19 20:37 Freq: q24h Status: Active Protocol: Activity Type Activity Date Activity User E-Sign Co-Sign Detail Recorded Client Recorded Date Recorded By Document 05/01/19 20:37 [facility] [id number] 05/01/19 20:38 [facility] 05/01/19 20:37 Orthostatic Vitals Sitting -Blood Pressure (90/60-120/80) 154/74 H -Extremity Use Right Arm -Pulse Rate (60-100) 71 Lying -Blood Pressure (90/60-120/80) 153/74 H -Extremity Use Right Arm -Pulse Rate (60-100) 71 Intake and Output for Last 24 Hours 05/02/19 05/03/19 05/04/19 23:59 23:59 23:59 Intake Total 790 / 790 620 / 620 120 / 120 Output Total 600 / 600 Balance 190 / 190 620 / 620 120 / 120 General: Alert, Oriented x3, Cooperative HEENT: Atraumatic, PERRLA, EOMI, Normocephalic Neck: Supple, No JVD, Negative Carotid Bruits Lungs: Clear to auscultation, No rhonchi, No wheeze, No rales, Diminished Cardiovascular: Regular rate, Regular Rhythm, Normal S1, Normal S2, No murmurs Abdomen: Bowel Sounds Present, Soft, Non Tender, Non-Distended Extremities: No edema, Capillary Refill Less than 3 Seconds Skin: No rashes, No breakdown Musculoskeletal: Arthritic Changes, Tenderness - Mild tenderness on deep palpation of the left pubic ramus. Neurological: Cranial nerves II-XII grossly intact, Neuro grossly intact Psych/Mental Status: Normal Affect, Appropriate Laboratory Results 05/04/19 05:50: Sodium 141, Potassium 4.7, Chloride 107, Carbon Dioxide 28.0, Anion Gap 6, BUN 50 H, Creatinine 2.04 H, Estim Creat Clear Calc 17.30, Est GFR (MDRD) Af Amer 30 L, Est GFR (MDRD) Non-Af 25 L, BUN/Creatinine Ratio 24.5 H, Glucose 108 H, Calcium 9.2 Current Medications Acetaminophen (Tylenol) 1,000 mg PO Q8 [facility] Last Admin: 05/04/19 05:33 Dose: 1,000 mg Documented by: Albuterol Sulfate (Ventolin Aerosols) 2.5 mg INHALATION Q2H PRN PRN PRN Reason: SOB/Wheezing Atorvastatin Calcium (Lipitor) 20 mg PO QHS [facility] Last Admin: 05/03/19 21:05 Dose: 20 mg Documented by: Brimonidine Tartrate (Brimonidine 0.2% 5ml Bottle) 1 drop EACH EYE BID [facility] Last Admin: 05/04/19 09:45 Dose: 1 drop Documented by: Calcium/Vitamin D (Os-Osmany 500mg + D) [facility] Last Admin: 05/04/19 09:53 Dose: 1 tablet Documented by: Dextrose (D50w Syringe) 0 gm IV X1 PRN; Protocol PRN Reason: Hypoglycemia Enoxaparin Sodium (Lovenox) 30 mg SC DAILY [facility] Last Admin: 05/04/19 09:53 Dose: 30 mg Documented by: Furosemide (Lasix) 40 mg PO DAILY [facility] Last Admin: 05/04/19 09:46 Dose: 40 mg Documented by: Glucagon () 1 mg IM .X1 PRN PRN Reason: Hypoglycemia Heparin Sodium (Beef Lung) () 50 units IV UD PRN PRN Reason: Port-a-Cath (VAD)Heparin Flush Last Admin: 05/01/19 17:56 Dose: 50 units Documented by: Hydralazine HCl (Apresoline Iv) 10 mg IV Q4H PRN PRN PRN Reason: SBP > 160 Isosorbide Mononitrate (Imdur) 60 mg PO DAILY [facility] Last Admin: 05/04/19 09:46 Dose: 60 mg Documented by: Latanoprost (Xalatan Opthalmic) 1 drop EACH EYE QHS [facility] Last Admin: 05/03/19 21:09 Dose: 1 drop Documented by: Metoprolol Tartrate (Lopressor (Beta Brandyn)) 75 mg PO BID [facility] Last Admin: 05/04/19 09:47 Dose: 75 mg Documented by: Miconazole Nitrate (Monistat-Derm, Micatin) 1 applic TOPICAL BID [facility]; Protocol Last Admin: 05/04/19 09:49 Dose: 1 applicatio Documented by: Morphine Sulfate () 2 mg IV Q4H PRN PRN PRN Reason: Pain Score 6-10/10 Nitroglycerin (Nitrostat) 0.4 mg SUBLINGUAL Q5M PRN PRN Reason: CARDIAC/CHEST PAIN Nutritional Formula (Lactose Free) (Ensure Enlive) 120 ml PO DAILY [facility] Last Admin: 05/04/19 09:45 Dose: 120 ml Documented by: Ondansetron HCl (Zofran) 4 mg IV Q8H PRN PRN PRN Reason: NAUSEA/VOMITING Oxycodone HCl (Oxyir) 5 mg PO Q4H PRN PRN PRN Reason: Pain Score 6-10/10 Last Admin: 05/04/19 01:51 Dose: 5 mg Documented by: Potassium Chloride (K-Dur) 10 meq PO QHS [facility] Last Admin: 05/03/19 21:05 Dose: 10 meq Documented by: Ranolazine (Ranexa) 1,000 mg PO BID [facility] Last Admin: 05/04/19 09:50 Dose: 1,000 mg Documented by: Sodium Chloride () 10 - 40 ml IV UD PRN PRN Reason: SALINE FLUSH Last Admin: 05/04/19 05:54 Dose: 30 ml Documented by: Timolol Maleate (Timoptic) 1 drop OPHTHALMIC BID [facility] Last Admin: 05/04/19 09:51 Dose: 1 drop Documented by: Medical Necessity - Tobacco Use Smoking Status: Never smoker Tobacco Use: Non-smoker Assessment/Plan All Active Problems (Last Reviewed 06/21/18 @ 14:11 by Nahid Hernandez MD) Pleural effusion, left (Acute) Dyspnea (Acute) Lower extremity edema (Acute) Scalp laceration (Acute) Recurrent falls (Acute) Closed fracture of left inferior pubic ramus (Acute) Injury of left shoulder and upper arm (Acute) History of coronary artery stent placement (Resolved 05/21/09) ARF (acute renal failure) (Resolved) Fracture of femoral neck, left (Resolved) Hypertensive emergency (Resolved) Pyelonephritis, acute (Resolved) This is a 78-year-old female with multiple comorbidities including coronary artery disease, chronic heart failure, CKD stage IV was admitted with progressive worsening of shortness of breath, lower extremity edema, elevated BNP more than 50,000, chest x-ray findings of left pleural effusion suggestive of acute on chronic heart failure with preserved EF. 1. Acute on chronic heart failure with preserved ejection fraction: The patient is being admitted in PCU. EKG reviewed. No normal sinus rhythm at 69 bpm with bifascicular block, RBBB plus LAFB. Patient was seen by steam plant control room operator. Started on Lasix drip. Other core measures of heart failure followed including fluid restriction, strict input and output and daily weight monitoring. 2D echo 2014: EF of 65% with stage II diastolic dysfunction and no regional wall motion abnormalities noted. No pericardial effusion RVSP was 32 mmHg. The echo done. April 30, 2019: 2D echo reported as Normal LV size. The estimated ejection fraction is 20 %. Stage 1 diastolic dysfunction. Moderate (2+) eccentric mitral valve insufficiency. Pulmonary artery systolic pressure is 36 mmHg. Mild (1+) aortic valve insufficiency. Compared to the previous there is significant decline in the function. Contrast injection was performed. 05/01/19: Discussed with steam plant control room operator and web marketing coordinator. Continue diuresis. Patient had negative balance of about 100 mL. Her weight has decreased from 116 to 106 pound therefore intake and output is probably inaccurate. In the evening, discharge was held secondary to fall. 05/02/19: Lung auscultation has improved. CBC and BMP reviewed. Weight has slightly increased to 107 pound. 05/03/19: She is making 600 to 700 mL urine output daily. Kidney function is stable. We will keep Lasix 40 mg once daily. /20: Is doing good on Lasix 40 mg p.o. daily. 2. Acute superior inferior pubic rami fracture of left pelvis: Patient has tenderness over left groin. Left hip x-ray reported as slightly displaced fracture of medial left inferior and superior pubic rami appearing acute. Status post bilateral hip replacement noted with implants appearing in good position. No evidence of lumbar spine fracture or spondylolisthesis. Continue PT and OT. Discussed with gearcase assembler. Need SNF placement. Outpatient Ortho follow-up in 2 weeks. Body weight 206 pounds 05/03: Vitamin D level ordered. On calcium vitamin D supplement. 05/04: Patient as per PT note, ambulated 400 feet with forward wheeled walker. Slow steady gait. Patient does veer left and right during ambulation suggestive of tremulous and an unsteady gait. 3. Coronary artery disease with indeterminate troponins: Serial troponins are mildly elevated 0.4?3. Flat and indeterminate. Probably secondary to fluid overload from heart failure.Currently on Imdur and metoprolol and ranolazine.. Sublingual nitroglycerin as needed. * Patient had cardiac cath in 05/2018. Cath findings normal left main coronary artery and moderate luminal irregularities up to 50% in the LAD and moderate luminal irregularities in the circumflex and first diagonal arteries as well. She had 80% stenosis in the right coronary artery with an in-stent 95% stenosis and collateral flow from left to right. At that time, she has not had a candidate for PCI because of severe anemia not taking for long-term aspirin and Plavix. And medical therapy was recommended. 3. CKD stage IV: Patient baseline creatinine is around 2.25-2.5. As patient is on IV diuresis and expected creatinine to go up therefore [place] web marketing coordinator was consulted who they have seen in the past. Urine culture is negative. 05/02: Kidney function is stable, BUN/creatinine 52/2.09. 4. History of Sjogren's disease and rheumatoid arthritis. * stable. 5. Hyperlipidemia: on statin 6. Recent history of right hip fracture * Managed conservatively. Currently stable. * Consult PT OT. DVT prophylaxis: Lovenox I I got called by charge nurse stating patient has denied for SNF. I called [phone] regarding appeal but the insurance company is closed and they wanted to call tomorrow. I strongly feel patient needs SNF because of fracture of superior inferior ramus which might get displaced if she further falls, more so over she has unsteady gait as noted by physical therapist Total time of the visit including total time spent in counseling or coordination of care, (more than 50% of the total time, spent in obtaining medical information from nurses and other ancillary care providers), review of labs and imaging, explaining the fracture of left pelvis and need for rehab is 30 minutes Code Visit Inpatient E&M: 28954 Subs Hosp L2
--- NOTE | 2019-05-04 16:49 | PN.RENAL_ITS ---
Patient Problems: Active and Suspected Problems (Last Reviewed 06/21/18 @ 14:11 by Nahid Hernandez MD) Pleural effusion, left (Acute) Dyspnea (Acute) Lower extremity edema (Acute) Subjective: Pt said breathing is stable. No nausea no vomiting - Physical Exam Vitals/I&O's: Vital Signs Temp Pulse Resp BP Pulse Ox 97.9 F 70 16 132/65 H 95 05/04/19 15:22 05/04/19 15:30 05/04/19 15:22 05/04/19 15:22 05/04/19 15:22 Oxygen Flow Rate (L/min) 2 Oxygen Delivery Method Room Air Weight: 49 kg Body Mass Index (BMI) 19.9 Orthostatic Vital Signs Start: 05/01/19 20:37 Freq: q24h Status: Active Protocol: Activity Type Activity Date Activity User E-Sign Co-Sign Detail Recorded Client Recorded Date Recorded By Document 05/01/19 20:37 [facility] [id number] 05/01/19 20:38 [facility] 05/01/19 20:37 Orthostatic Vitals Sitting -Blood Pressure (90/60-120/80) 154/74 H -Extremity Use Right Arm -Pulse Rate (60-100) 71 Lying -Blood Pressure (90/60-120/80) 153/74 H -Extremity Use Right Arm -Pulse Rate (60-100) 71 Intake and Output for Last 24 Hours 05/02/19 05/03/19 05/04/19 23:59 23:59 23:59 Intake Total 790 / 790 620 / 620 800 / 800 Output Total 600 / 600 Balance 190 / 190 620 / 620 800 / 800 General: Alert, Oriented x3 HEENT: Atraumatic Oral: Moist Mucosa Neck: Supple Lungs: Clear to auscultation Cardiovascular: Regular rate, Regular Rhythm, Normal S1 Abdomen: Bowel Sounds Present, Soft, Non Tender Extremities: No clubbing, No cyanosis Musculoskeletal: No Tenderness to Palpation of Joints or Extremities Lymphatic: No Cervical, Supraclavicular, or Inguinal Adenopathy Neurological: Cranial nerves II-XII grossly intact, Neuro grossly intact Psych/Mental Status: Appropriate Laboratory Results 05/04/19 05:50: Sodium 141, Potassium 4.7, Chloride 107, Carbon Dioxide 28.0, Anion Gap 6, BUN 50 H, Creatinine 2.04 H, Estim Creat Clear Calc 17.30, Est GFR (MDRD) Af Amer 30 L, Est GFR (MDRD) Non-Af 25 L, BUN/Creatinine Ratio 24.5 H, Glucose 108 H, Calcium 9.2 Current Medications Acetaminophen (Tylenol) 1,000 mg PO Q8 COUNTS INCLUDE 234 BEDS AT THE [facility] Last Admin: 05/04/19 14:00 Dose: Not Given Documented by: Albuterol Sulfate (Ventolin Aerosols) 2.5 mg INHALATION Q2H PRN PRN PRN Reason: SOB/Wheezing Atorvastatin Calcium (Lipitor) 20 mg PO QHS COUNTS INCLUDE 234 BEDS AT THE [facility] Last Admin: 05/03/19 21:05 Dose: 20 mg Documented by: Brimonidine Tartrate (Brimonidine 0.2% 5ml Bottle) 1 drop EACH EYE BID COUNTS INCLUDE 234 BEDS AT THE [facility] Last Admin: 05/04/19 09:45 Dose: 1 drop Documented by: Calcium/Vitamin D (Os-Osmany 500mg + D) [facility] Last Admin: 05/04/19 15:24 Dose: 1 tablet Documented by: Dextrose (D50w Syringe) 0 gm IV X1 PRN; Protocol PRN Reason: Hypoglycemia Enoxaparin Sodium (Lovenox) 30 mg SC DAILY COUNTS INCLUDE 234 BEDS AT THE [facility] Last Admin: 05/04/19 09:53 Dose: 30 mg Documented by: Furosemide (Lasix) 40 mg PO DAILY COUNTS INCLUDE 234 BEDS AT THE [facility] Last Admin: 05/04/19 09:46 Dose: 40 mg Documented by: Glucagon () 1 mg IM .X1 PRN PRN Reason: Hypoglycemia Heparin Sodium (Beef Lung) () 50 units IV UD PRN PRN Reason: Port-a-Cath (VAD)Heparin Flush Last Admin: 05/01/19 17:56 Dose: 50 units Documented by: Hydralazine HCl (Apresoline Iv) 10 mg IV Q4H PRN PRN PRN Reason: SBP > 160 Isosorbide Mononitrate (Imdur) 60 mg PO DAILY COUNTS INCLUDE 234 BEDS AT THE [facility] Last Admin: 05/04/19 09:46 Dose: 60 mg Documented by: Latanoprost (Xalatan Opthalmic) 1 drop EACH EYE QHS COUNTS INCLUDE 234 BEDS AT THE [facility] Last Admin: 05/03/19 21:09 Dose: 1 drop Documented by: Metoprolol Tartrate (Lopressor (Beta Brandyn)) 75 mg PO BID COUNTS INCLUDE 234 BEDS AT THE [facility] Last Admin: 05/04/19 09:47 Dose: 75 mg Documented by: Miconazole Nitrate (Monistat-Derm, Micatin) 1 applic TOPICAL BID COUNTS INCLUDE 234 BEDS AT THE [facility]; Protocol Last Admin: 05/04/19 09:49 Dose: 1 applicatio Documented by: Morphine Sulfate () 2 mg IV Q4H PRN PRN PRN Reason: Pain Score 6-10/10 Nitroglycerin (Nitrostat) 0.4 mg SUBLINGUAL Q5M PRN PRN Reason: CARDIAC/CHEST PAIN Nutritional Formula (Lactose Free) (Ensure Enlive) 120 ml PO DAILY COUNTS INCLUDE 234 BEDS AT THE [facility] Last Admin: 05/04/19 09:45 Dose: 120 ml Documented by: Ondansetron HCl (Zofran) 4 mg IV Q8H PRN PRN PRN Reason: NAUSEA/VOMITING Oxycodone HCl (Oxyir) 5 mg PO Q4H PRN PRN PRN Reason: Pain Score 6-10/10 Last Admin: 05/04/19 01:51 Dose: 5 mg Documented by: Potassium Chloride (K-Dur) 10 meq PO QHS COUNTS INCLUDE 234 BEDS AT THE [facility] Last Admin: 05/03/19 21:05 Dose: 10 meq Documented by: Ranolazine (Ranexa) 1,000 mg PO BID COUNTS INCLUDE 234 BEDS AT THE [facility] Last Admin: 05/04/19 09:50 Dose: 1,000 mg Documented by: Sodium Chloride () 10 - 40 ml IV UD PRN PRN Reason: SALINE FLUSH Last Admin: 05/04/19 05:54 Dose: 30 ml Documented by: Timolol Maleate (Timoptic) 1 drop OPHTHALMIC BID COUNTS INCLUDE 234 BEDS AT THE [facility] Last Admin: 05/04/19 09:51 Dose: 1 drop Documented by: Medical Necessity - Tobacco Use Smoking Status: Never smoker Tobacco Use: Non-smoker Assessment/Plan All Active Problems (Last Reviewed 06/21/18 @ 14:11 by Nahid Hernandez MD) Pleural effusion, left (Acute) Dyspnea (Acute) Lower extremity edema (Acute) Scalp laceration (Acute) Recurrent falls (Acute) Closed fracture of left inferior pubic ramus (Acute) Injury of left shoulder and upper arm (Acute) History of coronary artery stent placement (Resolved 05/21/09) ARF (acute renal failure) (Resolved) Fracture of femoral neck, left (Resolved) Hypertensive emergency (Resolved) Pyelonephritis, acute (Resolved) CKD baseline creatinine 2-2.5 mg/dL LE edema CHF Plan: Cr is stable at baseline. Continue same dose of lasix 40 mg PO daily BP is Ok Avoid nephrotoxins and overdiuresis Continue to monitor kidney function Will continue to follow Please call if any question Galen Potts MD
[2019-05-04] MEDS: Atorvastatin Calcium 20 MG Tablet PO (21:27)
[2019-05-04] MEDS: Latanoprost 0.005% 1 Bottle 1 DRP EACH EYE (21:29)
[2019-05-05] VITALS (7 sets, daily range): BP systolic 135–150; BP diastolic 54–65; PULSE 65–78; RESP 16; TEMP 36.4–36.8; O2SAT 97–100
[2019-05-05] MEDS: Calcium Carb/Vitamin D 1 TABLET Tablet PO (08:31)
[2019-05-05 09:07] LABS: Vitamin D,25 Hydroxy 55.5 ng/mL (29.95-100.01)
[2019-05-05] MEDS: Ranolazine 500 MG Tablet 1000 MG PO (09:51)
[2019-05-05] MEDS: BRIMONIDINE 0.2% 5ML BOTTLE 1 DRP EACH EYE (09:51)
[2019-05-05] MEDS: Timolol 0.5% 5ML OPTH.BTL 1 DRP OPHTHALMIC (09:51)
[2019-05-05] MEDS: Enoxaparin 30 MG/0.3 ML Syringe SC (09:51)
[2019-05-05] MEDS: Metoprolol Tartrate 50 MG Tablet 75 MG PO (09:52)
[2019-05-05] MEDS: Isosorbide Mononitrate 60 MG Tablet PO (09:52)
[2019-05-05] MEDS: Furosemide 40 MG Tablet PO (09:52)
[2019-05-05] MEDS: LIFITEGRAST 1 EACH DROPERETTE OP (09:53)
--- NOTE | 2019-05-05 12:50 | PCM.PROGNOTE ---
Patient Problems: Active and Suspected Problems (Last Reviewed 06/21/18 @ 14:11 by Nahid Hernandez MD) Pleural effusion, left (Acute) Dyspnea (Acute) Lower extremity edema (Acute) Subjective: The patient still has pain in the pelvic area no shortness of breath now no chest pain - Physical Exam Vitals/I&O's: Vital Signs Temp Pulse Resp BP Pulse Ox 98.3 F 78 16 139/55 H 100 05/05/19 09:20 05/05/19 09:52 05/05/19 09:20 05/05/19 09:52 05/05/19 09:20 Oxygen Flow Rate (L/min) 2 Oxygen Delivery Method Room Air Weight: 48.5 kg Body Mass Index (BMI) 19.9 Orthostatic Vital Signs Start: 05/01/19 20:37 Freq: q24h Status: Active Protocol: Activity Type Activity Date Activity User E-Sign Co-Sign Detail Recorded Client Recorded Date Recorded By Document 05/01/19 20:37 [facility] [id number] 05/01/19 20:38 [facility] 05/01/19 20:37 Orthostatic Vitals Sitting -Blood Pressure (90/60-120/80) 154/74 H -Extremity Use Right Arm -Pulse Rate (60-100) 71 Lying -Blood Pressure (90/60-120/80) 153/74 H -Extremity Use Right Arm -Pulse Rate (60-100) 71 Intake and Output for Last 24 Hours 05/03/19 05/04/19 05/05/19 23:59 23:59 23:59 Intake Total 620 / 620 1400 / 1400 100 / 100 Balance 620 / 620 1400 / 1400 100 / 100 General: Alert, Oriented x3, Cooperative HEENT: Atraumatic, PERRLA, EOMI, Normocephalic Neck: Supple, No JVD, Negative Carotid Bruits Lungs: Clear to auscultation, Normal air movement Cardiovascular: Regular rate, No murmurs Abdomen: Bowel Sounds Present, Soft, Non Tender Extremities: Capillary Refill Less than 3 Seconds, Edema Skin: No rashes, No breakdown Musculoskeletal: No Tenderness to Palpation of Joints or Extremities Neurological: Cranial nerves II-XII grossly intact Psych/Mental Status: Normal Affect, Appropriate Laboratory Results 05/03/19 11:08: Vitamin D 25-Hydroxy 55.5 Current Medications Acetaminophen (Tylenol) 1,000 mg PO Q8 [facility] Last Admin: 05/05/19 05:43 Dose: Not Given Documented by: Albuterol Sulfate (Ventolin Aerosols) 2.5 mg INHALATION Q2H PRN PRN PRN Reason: SOB/Wheezing Atorvastatin Calcium (Lipitor) 20 mg PO QHS [facility] Last Admin: 05/04/19 21:27 Dose: 20 mg Documented by: Brimonidine Tartrate (Brimonidine 0.2% 5ml Bottle) 1 drop EACH EYE BID [facility] Last Admin: 05/05/19 09:51 Dose: 1 drop Documented by: Calcium/Vitamin D (Os-Osmany 500mg + D) [facility] Last Admin: 05/05/19 08:31 Dose: 1 tablet Documented by: Dextrose (D50w Syringe) 0 gm IV X1 PRN; Protocol PRN Reason: Hypoglycemia Enoxaparin Sodium (Lovenox) 30 mg SC DAILY [facility] Last Admin: 05/05/19 09:51 Dose: 30 mg Documented by: Furosemide (Lasix) 40 mg PO DAILY [facility] Last Admin: 05/05/19 09:52 Dose: 40 mg Documented by: Glucagon () 1 mg IM .X1 PRN PRN Reason: Hypoglycemia Heparin Sodium (Beef Lung) () 50 units IV UD PRN PRN Reason: Port-a-Cath (VAD)Heparin Flush Last Admin: 05/01/19 17:56 Dose: 50 units Documented by: Hydralazine HCl (Apresoline Iv) 10 mg IV Q4H PRN PRN PRN Reason: SBP > 160 Isosorbide Mononitrate (Imdur) 60 mg PO DAILY [facility] Last Admin: 05/05/19 09:52 Dose: 60 mg Documented by: Latanoprost (Xalatan Opthalmic) 1 drop EACH EYE QHS [facility] Last Admin: 05/04/19 21:29 Dose: 1 drop Documented by: Metoprolol Tartrate (Lopressor (Beta Brandyn)) 75 mg PO BID [facility] Last Admin: 05/05/19 09:52 Dose: 75 mg Documented by: Miconazole Nitrate (Monistat-Derm, Micatin) 1 applic TOPICAL BID [facility]; Protocol Last Admin: 05/05/19 09:52 Dose: Not Given Documented by: Morphine Sulfate () 2 mg IV Q4H PRN PRN PRN Reason: Pain Score 6-10/10 Nitroglycerin (Nitrostat) 0.4 mg SUBLINGUAL Q5M PRN PRN Reason: CARDIAC/CHEST PAIN Nutritional Formula (Lactose Free) (Ensure Enlive) 120 ml PO DAILY [facility] Last Admin: 05/05/19 09:53 Dose: 120 ml Documented by: Ondansetron HCl (Zofran) 4 mg IV Q8H PRN PRN PRN Reason: NAUSEA/VOMITING Oxycodone HCl (Oxyir) 5 mg PO Q4H PRN PRN PRN Reason: Pain Score 6-10/10 Last Admin: 05/04/19 01:51 Dose: 5 mg Documented by: Potassium Chloride (K-Dur) 10 meq PO QHS [facility] Last Admin: 05/04/19 21:27 Dose: 10 meq Documented by: Ranolazine (Ranexa) 1,000 mg PO BID [facility] Last Admin: 05/05/19 09:51 Dose: 1,000 mg Documented by: Sodium Chloride () 10 - 40 ml IV UD PRN PRN Reason: SALINE FLUSH Last Admin: 05/04/19 05:54 Dose: 30 ml Documented by: Timolol Maleate (Timoptic) 1 drop OPHTHALMIC BID [facility] Last Admin: 05/05/19 09:51 Dose: 1 drop Documented by: Medical Necessity - Tobacco Use Smoking Status: Never smoker Tobacco Use: Non-smoker Assessment/Plan All Active Problems (Last Reviewed 06/21/18 @ 14:11 by Nahid Hernandez MD) Pleural effusion, left (Acute) Dyspnea (Acute) Lower extremity edema (Acute) Scalp laceration (Acute) Recurrent falls (Acute) Closed fracture of left inferior pubic ramus (Acute) Injury of left shoulder and upper arm (Acute) History of coronary artery stent placement (Resolved 05/21/09) ARF (acute renal failure) (Resolved) Fracture of femoral neck, left (Resolved) Hypertensive emergency (Resolved) Pyelonephritis, acute (Resolved) CKD baseline creatinine 2-2.5 LE edema HF Patient is currently on a Lasix po Creatinine 2.04 which is consistent with her baseline. bp acceptable monitor Avoid nephrotoxins and overdiuresis T
--- NOTE | 2019-05-05 13:06 | CASEMGMT ---
Patient was denied by insurance to go to a shelter facility. Patient is walking 400' with no loss of balance and steady on feet. There is an option for peer to peer review however, it is highly unlikely insurance will reverse their decision. VINICIO spoke with patient and let her know insurance denied SNF. SW asked her how she feels about this and if she feels she will be okay at home. She said she thinks she will be fine at home with her home health. She said she knows what happened, she turned to fast and slid. She said she has had so much therapy lately and she still falls. VINICIO spoke with her about going private pay. She declined stating she would like to go home. She gave VINICIO permission to call her daughter, Anaya. VINICIO called Anaya, who is patient's HCPOA. VINICIO let her know above and she understands. She would prefer her mom go to a shelter facility private pay, but she knows she won't want to do that. She thanked VINICIO for letting her know. VINICIO called [facility] and let them know patient will be going home today. VINICIO will fax d/c instructions as soon as they are completed. Plan: Home with resumption of [facility] shelter, PT, and OT. Arin BARR [employer]
[2019-05-05] MEDS: Acetaminophen 500 MG Tablet 1000 MG PO (14:19)
--- NOTE | 2019-05-05 14:27 | PCM.DC ---
- Discharge Diagnoses Current Active Problems: Current Active and Chronic Problems (Last Reviewed 06/21/18 @ 14:11 by Nahid Hernandez MD) Pleural effusion, left (Acute) Dyspnea (Acute) Acute exacerbation of CHF (congestive heart failure) (Chronic) Lower extremity edema (Acute) You will use the following diet at home:: Cardiac, Fluid restricted (specify 2000 mls, 1500 mls) - 1500 Your food should be the consistency of: Regular Your liquids should be the consistency of: Regular/Thin Discharge Activity: May Not Drive Weight Bearing Status: Weight bearing as tolerated Call your doctor if you observe: Fever of 101 or Higher, Coldness, Increased Pain, Numbness or Tingling, Change in Color, Inability to urinate, Inability to have a bowel movement, Using more than one pad per hour, Dizziness, Chest pain, Prolonged hiccoughing, Increased palpitations (irregular heartbeat), Calf discomfort, Uncontrolled pain Allergies/Adverse Reactions: Allergies adalimumab [From Humira] Allergy (Verified 04/28/19 15:18) Rash ciprofloxacin HCl [From Cipro] Allergy (Verified 04/28/19 15:18) Unknown doxazosin Allergy (Verified 04/28/19 15:18) Other hydroxyzine [From Vistaril] Allergy (Verified 04/28/19 15:18) Other latex Allergy (Verified 04/28/19 15:18) Rash levofloxacin [From Levaquin] Allergy (Verified 04/28/19 15:18) Unknown lisinopril Allergy (Verified 04/28/19 15:18) Other COUGH Methotrexate Analogues Allergy (Verified 04/28/19 15:18) Hives naproxen Allergy (Verified 04/28/19 15:18) Unknown potassium clavulanate [From Augmentin] Allergy (Verified 04/28/19 15:18) Unknown Sulfa (Sulfonamide Antibiotics) Allergy (Verified 04/28/19 15:18) Unknown amlodipine Adverse Reaction (Severe, Verified 04/28/19 15:18) edema haloperidol lactate [From Haldol] Adverse Reaction (Unknown, Verified 04/28/19 15:18) agitation amoxicillin trihydrate [From Augmentin] Adverse Reaction (Verified 04/28/19 15:18) Upset Stomach hydromorphone HCl [From Dilaudid] Adverse Reaction (Verified 04/28/19 15:18) Other HALLUCINATIONS hydroxychloroquine sulfate [From Plaquenil] Adverse Reaction (Verified 04/28/19 15:18) Other VISION ISSUES Medications to take at Discharge Multivit-Min/FA/Lycopen/Lutein [Centrum Silver Tablet] 1 ea PO DAILY 04/01/15 nitroglycerin 0.4 mg sublingual tablet 0.4 mg SUBLINGUAL PRN PRN #25 tab 01/31/18 Cholecalciferol (Vitamin D3) [Vitamin D3] 5,000 unit PO DAILY 06/06/18 Cyanocobalamin (Vitamin B-12) [B-12] 1,000 mcg PO DAILY 06/06/18 Vit C/E/Zn/Coppr/Lutein/Zeaxan [Preservision Areds 2 Softgel] 1 ea PO BID 06/06/18 atorvastatin 20 mg tablet 20 mg PO QHS 06/21/18 potassium chloride 10 mEq capsule,extended release 10 meq PO QHS cap 06/21/18 Brimonidine Tartrate/Timolol [Combigan Eye Drops] 1 drp EACH EYE BID 02/13/19 Latanoprost 1 drp EACH EYE QHS 02/13/19 isosorbide mononitrate 60 mg tablet,extended release 24 hr 60 mg PO DAILY tab 02/19/19 Metoprolol Tartrate [Lopressor (beta elena)] 75 mg PO BID 03/20/19 Ranolazine [Ranexa] 1,000 mg PO BID 03/20/19 Acetaminophen [Tylenol] 1,000 mg PO Q8H 04/28/19 Lidocaine 1 ea TOPICAL DAILY 04/28/19 Lifitegrast [Xiidra] 1 ea OP BID 04/29/19 Furosemide [Lasix] 40 mg PO DAILY #30 tab 05/05/19 The following prescriptions were given: Furosemide [Lasix] 40 mg PO DAILY #30 tab Transmission Status: Pending to [id number] Orders to be completed after discharge: Basic Metabolic Profile (BMP) Time Frame: 05/07/19, Location: Laboratory Primary Care Physician: Demarco Lopez MD [Primary Care Provider] - Please follow up with your Primary Care Physician in: in 2 weeks Test Results: Test results from this visit will be discussed in further detail at your follow-up appointment, if applicable. Please Follow Up With: Zeferino Farrar MD When: in 1 week with follow up BMP Please Follow Up With: Nahid Hernandez MD When: IN 4 WEEKS Proposed Discharge Date: 05/05/19
--- NOTE | 2019-05-05 14:29 | PCM.DC.SUM ---
Discharge Date and Diagnosis - Problem List Patient Problems: Active and Suspected Problems (Last Reviewed 06/21/18 @ 14:11 by Nahid Hernandez MD) Pleural effusion, left (Acute) Dyspnea (Acute) Lower extremity edema (Acute) Date of Admission: 04/28/19 Date of Discharge: 05/05/19 - Primary Discharge Diagnosis Active and Suspected Problems (Last Reviewed 06/21/18 @ 14:11 by Nahid Hernandez MD) Acute HFrEF pleural effusion - Secondary Discharge Diagnosis Chronic Problems (Last Reviewed 06/21/18 @ 14:11 by Nahid Hernandez MD) Acute exacerbation of CHF (congestive heart failure) (Chronic) Iron deficiency anemia (Chronic) Chronic renal insufficiency (Chronic) Chronic diastolic (congestive) heart failure (Chronic) Essential (primary) hypertension (Chronic) Elevated troponin (Chronic) Atherosclerotic heart disease of [place] coronary artery without angina pectoris (Chronic) Hyperlipemia (Chronic) Hospital Course and Treatment Imaging Results: Clinical Impression(s) from Imaging Studies Chest X-Ray 04/28/19 16:50 IMPRESSION: Left base infiltrate with moderate effusion. Electronically Signed: Ananth Jacobsen, at 17:07 EST Tel , Service support , Hip/Pelvis X-Ray 05/01/19 18:37 IMPRESSION: Slightly displaced fractures of the medial left inferior and superior pubic rami, appearing acute. Status post total bilateral hip replacements noted with implants appearing in good position. There is soft tissue heterotopic bone superior to the left hip. Electronically Signed: Paulo Helms MD at 19:49 EST , Service support , Lumbar Spine X-Ray 05/01/19 18:39 IMPRESSION: Narrowing of the L1-2 disc space with sclerosis of the adjacent endplates. There is no evidence of lumbar spinal fracture or spondylolisthesis. Electronically Signed: Paulo Helms MD at 19:57 EST , Service support , Mary, cardiology Charan, nephrology Operations: None Procedures: 2-D Echocardiogram - EF 20%, PASP 36mmHg Summary of Care Provided: The patient is a 78 year old F presents with shortness of breath and lower extremity swelling. Patient had a chest x-ray that showed left-sided pleural effusion. Patient was started on furosemide and diuresed. Cardiology and nephrology were involved. Patient was on a Lasix drip for a period of time and cycling changed over to furosemide 40 mg daily. Creatinine is stable at 2.04. Patient was evaluated for senior care facility placement but was denied by insurance. Plan is for the patient to go home with home care. Patient is currently on room air and not requiring any oxygen. [] Patient Problems: Active and Suspected Problems (Last Reviewed 06/21/18 @ 14:11 by Nahid Hernandez MD) Pleural effusion, left (Acute) Dyspnea (Acute) Lower extremity edema (Acute) - Physical Exam Vitals/I&O's: Vital Signs Temp Pulse Resp BP Pulse Ox 36.8 C 69 16 139/55 H 100 05/05/19 09:20 05/05/19 12:00 05/05/19 09:20 05/05/19 09:52 05/05/19 09:20 Oxygen Flow Rate (L/min) 2 Oxygen Delivery Method Room Air Weight: 48.5 kg Body Mass Index (BMI) 19.9 Orthostatic Vital Signs Start: 05/01/19 20:37 Freq: q24h Status: Active Protocol: Activity Type Activity Date Activity User E-Sign Co-Sign Detail Recorded Client Recorded Date Recorded By Document 05/01/19 20:37 [id number] 05/01/19 20:38 [facility] 05/01/19 20:37 Orthostatic Vitals Sitting -Blood Pressure (90/60-120/80) 154/74 H -Extremity Use Right Arm -Pulse Rate (60-100) 71 Lying -Blood Pressure (90/60-120/80) 153/74 H -Extremity Use Right Arm -Pulse Rate (60-100) 71 Intake and Output for Last 24 Hours 05/03/19 05/04/19 05/05/19 23:59 23:59 23:59 Intake Total 620 / 620 1400 / 1400 340 / 340 Balance 620 / 620 1400 / 1400 340 / 340 Laboratory Results 05/03/19 11:08: Vitamin D 25-Hydroxy 55.5 Current Medications Acetaminophen (Tylenol) 1,000 mg PO Q8 [facility] Last Admin: 05/05/19 14:19 Dose: 1,000 mg Documented by: Albuterol Sulfate (Ventolin Aerosols) 2.5 mg INHALATION Q2H PRN PRN PRN Reason: SOB/Wheezing Atorvastatin Calcium (Lipitor) 20 mg PO QHS [facility] Last Admin: 05/04/19 21:27 Dose: 20 mg Documented by: Brimonidine Tartrate (Brimonidine 0.2% 5ml Bottle) 1 drop EACH EYE BID [facility] Last Admin: 05/05/19 09:51 Dose: 1 drop Documented by: Calcium/Vitamin D (Os-Osmany 500mg + D) 1 tablet PO BIDCM [facility] Last Admin: 05/05/19 08:31 Dose: 1 tablet Documented by: Dextrose (D50w Syringe) 0 gm IV X1 PRN; Protocol PRN Reason: Hypoglycemia Enoxaparin Sodium (Lovenox) 30 mg SC DAILY [facility] Last Admin: 05/05/19 09:51 Dose: 30 mg Documented by: Furosemide (Lasix) 40 mg PO DAILY [facility] Last Admin: 05/05/19 09:52 Dose: 40 mg Documented by: Glucagon () 1 mg IM .X1 PRN PRN Reason: Hypoglycemia Heparin Sodium (Beef Lung) () 50 units IV UD PRN PRN Reason: Port-a-Cath (VAD)Heparin Flush Last Admin: 05/01/19 17:56 Dose: 50 units Documented by: Hydralazine HCl (Apresoline Iv) 10 mg IV Q4H PRN PRN PRN Reason: SBP > 160 Isosorbide Mononitrate (Imdur) 60 mg PO DAILY [facility] Last Admin: 05/05/19 09:52 Dose: 60 mg Documented by: Latanoprost (Xalatan Opthalmic) 1 drop EACH EYE QHS [facility] Last Admin: 05/04/19 21:29 Dose: 1 drop Documented by: Metoprolol Tartrate (Lopressor (Beta Barndyn)) 75 mg PO BID [facility] Last Admin: 05/05/19 09:52 Dose: 75 mg Documented by: Miconazole Nitrate (Monistat-Derm, Micatin) 1 applic TOPICAL BID [facility]; Protocol Last Admin: 05/05/19 09:52 Dose: Not Given Documented by: Morphine Sulfate () 2 mg IV Q4H PRN PRN PRN Reason: Pain Score 6-10/10 Nitroglycerin (Nitrostat) 0.4 mg SUBLINGUAL Q5M PRN PRN Reason: CARDIAC/CHEST PAIN Nutritional Formula (Lactose Free) (Ensure Enlive) 120 ml PO DAILY [facility] Last Admin: 05/05/19 09:53 Dose: 120 ml Documented by: Ondansetron HCl (Zofran) 4 mg IV Q8H PRN PRN PRN Reason: NAUSEA/VOMITING Oxycodone HCl (Oxyir) 5 mg PO Q4H PRN PRN PRN Reason: Pain Score 6-10/10 Last Admin: 05/04/19 01:51 Dose: 5 mg Documented by: Potassium Chloride (K-Dur) 10 meq PO QHS [facility] Last Admin: 05/04/19 21:27 Dose: 10 meq Documented by: Ranolazine (Ranexa) 1,000 mg PO BID [facility] Last Admin: 05/05/19 09:51 Dose: 1,000 mg Documented by: Sodium Chloride () 10 - 40 ml IV UD PRN PRN Reason: SALINE FLUSH Last Admin: 05/04/19 05:54 Dose: 30 ml Documented by: Timolol Maleate (Timoptic) 1 drop OPHTHALMIC BID [facility] Last Admin: 05/05/19 09:51 Dose: 1 drop Documented by: Discharge Diet: 6 Cup Fluid Restriction, 2000 mg Sodium Diet Discharge Activity: May Not Drive Weight Bearing Status: Weight bearing as tolerated Call your doctor if you observe: Fever of 101 or Higher, Coldness, Increased Pain, Numbness or Tingling, Change in Color, Inability to urinate, Inability to have a bowel movement, Using more than one pad per hour, Dizziness, Chest pain, Prolonged hiccoughing, Increased palpitations (irregular heartbeat), Calf discomfort, Uncontrolled pain Home Medications: Medications to take at Discharge Multivit-Min/FA/Lycopen/Lutein [Centrum Silver Tablet] 1 ea PO DAILY 04/01/15 nitroglycerin 0.4 mg sublingual tablet 0.4 mg SUBLINGUAL PRN PRN #25 tab 01/31/18 Cholecalciferol (Vitamin D3) [Vitamin D3] 5,000 unit PO DAILY 06/06/18 Cyanocobalamin (Vitamin B-12) [B-12] 1,000 mcg PO DAILY 06/06/18 Vit C/E/Zn/Coppr/Lutein/Zeaxan [Preservision Areds 2 Softgel] 1 ea PO BID 06/06/18 atorvastatin 20 mg tablet 20 mg PO QHS 06/21/18 potassium chloride 10 mEq capsule,extended release 10 meq PO QHS cap 06/21/18 Brimonidine Tartrate/Timolol [Combigan Eye Drops] 1 drp EACH EYE BID 02/13/19 Latanoprost 1 drp EACH EYE QHS 02/13/19 isosorbide mononitrate 60 mg tablet,extended release 24 hr 60 mg PO DAILY tab 02/19/19 Metoprolol Tartrate [Lopressor (beta brandyn)] 75 mg PO BID 03/20/19 Ranolazine [Ranexa] 1,000 mg PO BID 03/20/19 Acetaminophen [Tylenol] 1,000 mg PO Q8H 04/28/19 Lidocaine 1 ea TOPICAL DAILY 04/28/19 Lifitegrast [Xiidra] 1 ea OP BID 04/29/19 Furosemide [Lasix] 40 mg PO DAILY #30 tab 05/05/19 Following Prescrptions Were Given to Patient: Furosemide [Lasix] 40 mg PO DAILY #30 tab Transmission Status: Pending to [facility] viseto [id number] Other Amb Orders: Basic Metabolic Profile (BMP) Time Frame: 05/07/19, Location: Laboratory Primary Care Physician: Demarco Lopez MD [Primary Care Provider] - Please follow up with your Primary Care Physician in: in 2 weeks Please Follow Up With: Zeferino Farrar MD When: in 1 week with follow up BMP Please Follow Up With: Nahid Hernandez MD When: IN 4 WEEKS Disposition: Home with Home Health Minutes spent on discharge:: 32 Patient Condition:: Fair Medical Necessity - Tobacco Use Smoking Status: Never smoker Tobacco Use: Non-smoker Meaningful Use Info Meaningful Use Diagnoses (Choose all that apply): CHF - CHF VALENTE/ARB ordered at discharge?: No Reason VALENTE/ARB not ordered?: Worsening renal dysfunctn Documented LVEF (%): 20 Code Visit Inpatient E&M: 88863 Disch Hosp
[2019-05-05] MEDS: 0.9% Saline Lock 10 ML Syringe IV (14:54)
--- NOTE | 2019-05-06 16:44 | CASEMGMT ---
STEVE VALERIO DC PHONE CALL DC DATE: 05.05.19 DC Disposition: Home with [facility] Diagnosis on Discharge: Pelvic Fracture, Pleural effusion LACE/STRATA:16/ Intro role of CM to patient via phone. Patient states she had questions re: medications, but called to [facility] earlier and it was straightened out. No further questions. Reviewed dc appointments, instructions and no further questions. Pt states [facility] called today and would see her tomorrow. No care improvement suggestions were given. Pt states her care was very good. Del MAJOR RN ACM
== END 2019-05-05 17:45 | disposition home health service (06) | DRG 291 ==
LOC: ED 15:48 → PCU 17:58
PROVIDERS: Internal Medicine; Admitting Provider Student in an Organized Health Care Education/Training Program; Emergency Provider Emergency Medicine; Family Provider Family Medicine; PCP Family Medicine
DX: I13.0 Hypertensive heart and chronic kidney disease with heart failure and stage 1 through stage 4 chronic kidney disease, or unspecified chronic kidney disease (principal); I50.43 Acute on chronic combined systolic (congestive) and diastolic (congestive) heart failure; S32.512A Fracture of superior rim of left pubis, initial encounter for closed fracture; S32.592A Other specified fracture of left pubis, initial encounter for closed fracture; Z68.1 Body mass index [BMI] 19.9 or less, adult; I45.2 Bifascicular block; N18.4 Chronic kidney disease, stage 4 (severe); E44.0 Moderate protein-calorie malnutrition; D50.9 Iron deficiency anemia, unspecified; I25.10 Atherosclerotic heart disease of native coronary artery without angina pectoris; E78.5 Hyperlipidemia, unspecified; M35.00 Sjogren syndrome, unspecified; M06.9 Rheumatoid arthritis, unspecified; W18.30XA Fall on same level, unspecified, initial encounter; Y92.230 Patient room in hospital as the place of occurrence of the external cause; Z96.643 Presence of artificial hip joint, bilateral; Z95.5 Presence of coronary angioplasty implant and graft
CPT/HCPCS: 36591; 71046; 72100; 73502; 80048; 80061; 80076; 81001; 82306; 83880; 84443; 84484; 85025; 87086; 93005; 93306; 93970; 97110; 97116; 97162; 97166; 97168; 97530; 97535; 99285; Q9957; A4216; C8929; J1940

== ENCOUNTER 2019-05-27 14:48 | Inpatient (IN) | payer MEDICARE, SELFPAY ==
[2019-05-23 11:50] VITALS: BMI 18.1
[2019-05-27] VITALS (8 sets, daily range): BP systolic 83–141; BP diastolic 61–83; PULSE 60–87; RESP 13–16; TEMP 36.3–36.4; O2SAT 96–100; BMI 22.3; BMI 17.9
--- NOTE | 2019-05-27 15:17 | CT_ITS ---
STUDY: CT BRAIN WITHOUT CONTRAST REASON FOR EXAM: Female, 78 years old. CONFUSION. RECENT FALLS RADIATION DOSAGE (If Supplied By Facility): CTDIvol = ( 44.99 ) mGy, DLP = ( 745.49 ) mGycm TECHNIQUE: Transaxial CT imaging of the brain was performed without administration of intravenous contrast material. Individualized dose optimization techniques were used for this CT. COMPARISON: 03/19/2019 FINDINGS: Normal soft tissue structures. Normal calvarium. There is mild cerebral atrophy with widening of the extra-axial spaces and ventricular dilatation. There are areas of decreased attenuation within the white matter tracts of the supratentorial brain, consistent with microvascular disease changes. Normal basal ganglia and thalami. Normal brainstem. There is mild cerebellar atrophy. There is no intracranial hemorrhage. There are no findings of an acute ischemic infarction. Normal visualized paranasal sinuses. CT/Brain/Head without Contrast IMPRESSION: Chronic involutional changes of the brain. Electronically Signed: Goyo Tobias DO at 16:58 EST Tel , Service support ,
--- NOTE | 2019-05-27 15:18 | EKG12_ITS ---
Test Reason : FALL Blood Pressure : / mmHG Vent. Rate : 061 BPM Atrial Rate : 061 BPM P-R Int : 170 ms QRS Dur : 174 ms QT Int : 510 ms P-R-T Axes : 048 -68 063 degrees QTc Int : 513 ms Normal sinus rhythm Possible Left atrial enlargement Right bundle branch block Left anterior fascicular block Bifascicular block Septal infarct , age undetermined Abnormal ECG Confirmed by JEROME HUGHES ([id number]), news assignment editor ROMAIN DIAL ([id number]) on 05/29/2019 3:04:36 PM Referred By: JOCELIN Confirmed By:JEROME HUGHES
--- NOTE | 2019-05-27 15:40 | ED.VIS.GEN ---
History of Present Illness Chief Complaint: Fall Narrative: Patient presenting for evaluation secondary to frequent falls, confusion. Patient apparently has been dealing with a relatively high number of falls recently, she did suffer a pelvic fracture that required to stay in rehab. On Sunday the patient had a another unprovoked fall. Patient is unable to tell me any sort of surrounding circumstances around this, but denies that she really injured herself aside from getting some abrasions to her arms. However, the patient has been dealing with increasing agitation and combativeness. Patient's home health care nurse as well as her son who lives with her have been noticing this. Patient denies any recent infectious signs or symptoms such as fever nausea vomiting diarrhea dysuria or hematuria. She does report that she has had a mild cough but no shortness of breath. No sore throat. No runny nose associated with this. Family called primary care who recommended that the patient come to the emergency department for evaluation. Past Medical History - Allergies and Home Meds Allergies/Adverse Reactions: Allergies adalimumab [From Humira] Allergy (Verified 05/27/19 14:49) Rash ciprofloxacin HCl [From Cipro] Allergy (Verified 05/27/19 14:49) Unknown doxazosin Allergy (Verified 05/27/19 14:49) Other hydroxyzine [From Vistaril] Allergy (Verified 05/27/19 14:49) Other latex Allergy (Verified 05/27/19 14:49) Rash levofloxacin [From Levaquin] Allergy (Verified 05/27/19 14:49) Unknown lisinopril Allergy (Verified 05/27/19 14:49) Other COUGH Methotrexate Analogues Allergy (Verified 05/27/19 14:49) Hives naproxen Allergy (Verified 05/27/19 14:49) Unknown potassium clavulanate [From Augmentin] Allergy (Verified 05/27/19 14:49) Unknown Sulfa (Sulfonamide Antibiotics) Allergy (Verified 05/27/19 14:49) Unknown amlodipine Adverse Reaction (Severe, Verified 05/27/19 14:49) edema haloperidol lactate [From Haldol] Adverse Reaction (Unknown, Verified 05/27/19 14:49) agitation amoxicillin trihydrate [From Augmentin] Adverse Reaction (Verified 05/27/19 14:49) Upset Stomach hydromorphone HCl [From Dilaudid] Adverse Reaction (Verified 05/27/19 14:49) Other HALLUCINATIONS hydroxychloroquine sulfate [From Plaquenil] Adverse Reaction (Verified 05/27/19 14:49) Other VISION ISSUES Past Medical History: - - Hypertension, hyperlipidemia, coronary artery disease, CHF Surgical History: angioplasty, total hip arthroplasty - Bilateral, - - Carpal tunnel syndrome Smoking Status: Never smoker - Family History Paternal Family History: Family History (Last Reviewed 05/23/19 @ 11:50 by Liudmila Byrd) Father No problems noted. Family History: Reports: Cancer - breast, - Maternal Family History: Family History (Last Reviewed 05/23/19 @ 11:50 by Liudmila Byrd) Father No problems noted. Family History: Reports: Cancer - breast, - Review of Systems All systems negative except as indicated General: Reports: - - Frequent falls Eyes: Denies: Visual changes - bilaterally, Diplopia ENT: Denies: Rhinorrhea, Sore throat Cardiovascular: Denies: Chest pain, Palpitations Respiratory: Reports: Cough Gastrointestinal: Denies: Abdominal pain, Nausea, Vomiting, Diarrhea, Melena, Hematochezia Genitourinary: Denies: Dysuria, Hematuria, Frequency Musculoskeletal: Denies: Back pain, Extremity Pain Skin: Reports: Abrasions Neurological: Denies: Headache, Weakness, Numbness Physical Exam Vital Signs/Narrative: Vital Signs Temp Pulse Resp BP 05/27/19 14:49 97.4 F L 87 16 133/61 H Inital Vital Signs reviewed: Yes General: Well developed, - - Thin elderly female no acute distress sitting comfortably in the bed Head: Normocephalic, Atraumatic Eyes: Perrl, EOMI ENT: Moist mucous membranes, No rhinorrhea Neck: Supple, Nontender Cardiovascular: Murmur - 2 out of 6 systolic Respiratory: No distress, CTA bilaterally, Chest nontender Abdomen: Soft, Nontender, Nondistended, Normal bowel sounds Back: Nontender, Normal Inspection Extremities: Edema - 2+ bilateral lower extremity pitting Skin: - - Abrasions noted over the elbows bilaterally Neurological: Alert, Oriented x3, Cranial nerves II-XII grossly intact, Normal Strength, Normal Sensation Psychological: Normal affect, Normal Mood Diagnostic/Tx/Re-eval - EKG Initial EKG Interpretation: - - Sinus rhythm at 61 with a right bundle branch block and left anterior fascicular block. No acute changes noted from April. No evidence of acute ischemia or arrhythmia. QTC was 513. - Medical Decision Making Patient presented secondary to frequent falls and agitation. Broad work-up was obtained. CT imaging of the brain was negative. Chest x-ray shows chronic changes. CBC chemistry BNP and troponin were indicative of acute kidney injury with elevated liver enzymes cardiac strain and elevated BNP. Urinalysis was negative for infection. Patient was given 40 mg of IV Lasix. Given the patient's congestive heart failure acute kidney injury and cardiac strain a believe she requires admission. I discussed this with the hospitalist. ED Disposition - Plan for ED Patient: Disposition: Acute Care Hospital [facility] Diagnosis: SYLVIA (acute kidney injury), CHF (congestive heart failure)
--- NOTE | 2019-05-27 16:10 | RAD_ITS ---
STUDY: X-RAY CHEST REASON FOR EXAM: Female, 78 years old. FREQUENT FALLS AND WEAKNESS TECHNIQUE: PA and lateral views of the chest. COMPARISON: 02/13/19. FINDINGS: Indwelling central catheter is noted with its tip in the right atrium. Cardiac silhouette unremarkable. Pulmonary vascularity unremarkable. Aorta unremarkable. No focal airspace opacities. There is a dense left basilar opacity similar to prior. Clear right lung. Upper abdomen unremarkable. Osseous structures intact. No pneumothorax. RAD/Chest PA and Lateral IMPRESSION: Persistent left basilar opacity may represent effusion and atelectasis. Underlying pneumonia should be excluded clinically. Electronically Signed: Vikas Ashraf, at 17:37 EST Tel , Service support ,
[2019-05-27 16:11] LABS: Absolute Neutrophil Count 9.8 X10^3/uL (2.0-7.7); Basophil# 0.04 X10^3/uL; Basophil% 0.3 % (0-1); Eosinophil# 0.11 X10^3/uL; Eosinophils% 0.9 % (0-5); Hematocrit 32.3 % (37-47); Hemoglobin 10.1 g/dL (12.0-15.0); Lymphocyte % 10.2 % (19-41); Mean Corp Hgb Conc 31.3 g/dL (32-36); Mean Corpuscular Hgb 34.5 pg (27.0-32.0); Mean Corpuscular Volume 110.2 fL (81-99); Mean Platelet Vol. 12.7 fl (6.2-12.0); Monocyte# 1.29 X10^3/uL; Monocyte% 10.2 % (0-10); NRBC Flagged by Analyzer 0.3 % (0-5); Neutrophil # 9.81 X10^3/uL (2.7-7.7); Neutrophil % 77.2 % (47-70); POSITIVE MORPHOLOGY YES; Platelet Count 210 K/mm3 (150-450); RBC Distribution Width CV 18.9 % (11.6-14.6); RBC Distribution Width SD 75.4 fl (35.1-43.9); Red Blood Count 2.93 M/mm3 (4.2-5.4); White Blood Count 12.7 K/mm3 (4.4-11.0)
[2019-05-27 16:12] LABS: Differential Indicated SCAN CRITERIA MET
[2019-05-27 16:43] LABS: ALB/GLOB Ratio 0.6 RATIO (0.9-2.4); AST(SGOT) 184 U/L (15-37); Alanine Aminotransfer ALT/SGPT 148 U/L (13-56); Albumin, Serum 2.7 g/dL (3.2-5.0); Alkaline Phosphatase 163 U/L (45-117); Anion Gap 7 (5-15); BUN 84 mg/dL (7-18); BUN/Creat Ratio 29.2 RATIO (10-20); Calcium,Total 9.4 mg/dL (8.5-10.1); Chloride 101 mmol/L (98-107); Creatinine, Serum 2.88 mg/dL (0.55-1.02); EST Glomerular Filtration Rate 17 mL/min (>60); Est Glom Filt Rate - Afr Amer 20 mL/min (>60); Estimated Creatinine Clearance 13.68 ml/min; Globulin 4.8 g/dL (2.2-4.2); Glucose 164 mg/dL (74-106); Potassium 4.8 mmol/L (3.5-5.1); Protein, Total 7.5 g/dL (6.4-8.2); Sodium Level 134 mmol/L (136-145)
[2019-05-27 16:50] LABS: Differential Comment SCANNED
[2019-05-27 17:24] LABS: BNP,B-Type NATRIURETIC PEPTIDE > 5000.0 pg/mL (0-100)
[2019-05-27 17:39] LABS: Bacteria 0 SEEN /hpf (None Seen); Mucous, Urine 0 SEEN /hpf (<or=2+); Red Blood Cells-Urine 0 SEEN /hpf (0-5); Squamous Epithelial Cells - UA 0 SEEN /hpf (5-10)
[2019-05-27 17:55] LABS: Color, Urine Yellow (Yellow); Glucose, Dipstick Normal (Normal); Ketone-Dipstick Negative (Negative); Leukocyte Esterase-Dipstick 25 /ul (Negative); Nitrite-Dipstick Negative (Negative); Occult Blood-Urine Negative /ul (Negative); Protein-Dipstick 100 mg/dl (Negative); Urine Bilirubin Dipstick Negative (Negative); Urine Clarity Clear (Clear); Urine Urobilinogen Normal (Normal)
[2019-05-27 18:40] LABS: Hyaline Cast 5-10 SEEN /lpf (0-5)
[2019-05-27 18:41] LABS: Amorphous Sediment 2+; White Blood Cells 0-5 SEEN /hpf (0-5)
[2019-05-27 18:42] LABS: Transitional Epithelial - Ur 0-5 SEEN /hpf (0-5)
--- NOTE | 2019-05-27 19:05 | HP.PCM_ITS ---
Problem List (1) Acute on chronic systolic (congestive) heart failure Status: Acute (2) SYLVIA (acute kidney injury) Status: Acute (3) Atherosclerotic heart disease of hopi coronary artery without angina pectoris Status: Chronic Qualifiers: [place] vs. transplanted heart: hopi heart Qualified Code(s): I25.10 - Atherosclerotic heart disease of hopi coronary artery without angina pectoris (4) Essential (primary) hypertension Status: Chronic (5) Hyperlipemia Status: Chronic Qualifiers: Hyperlipidemia type: pure hypercholesterolemia Qualified Code(s): E78.00 - Pure hypercholesterolemia, unspecified (6) Iron deficiency anemia Status: Chronic Qualifiers: Iron deficiency anemia type: unspecified iron deficiency Qualified Code(s): D50.9 - Iron deficiency anemia, unspecified History of Present Illness Date of Admission: 05/27/19 Chief Complaint: Confusion, frequent falls The patient is a 78 y/o F w/ PMHx: Chronic anemia, Chronic Systolic/Diastolic CHF, HTN, HLD, Hx NSTEMI, CAD s/p PCI NIGHAT RCA, CKD stage III, Rheumatoid arthritis, Sjogren's disease who presents to the [facility] ED on 05/27/19 with history of worsening lower extremity edema, weight gain and orthopnea with increasing falls over the last several days with concurrently increased irritability and confusion recently discharged on 05/05/19 following CHF exacerbation admission with prior to this noted ED vision 05/01/19 with slightly displaced fractures of the medial left inferior and superior pubic rami; however patient and family note that fpc facility [facility] had been recommended but her insurance declined coverage therefore should return to home with home therapies. Work-up in the ED included T 97.4, heart rate 87, BP 133/61 however repeat prior to evaluation 83/72, respiratory rate 16, 97% on room air, CBC with WBC 12.7, hemoglobin 10.1, platelet 210 with left shift, CMP with sodium 134, BUN/ creatinine 84/2.88, glucose 164, AST/ALT 184/148, alk phos 163, troponin 0 0.114, BNP greater than 5000 with most recent BNP on 04/28/2019 greater than 5000 also, urinalysis unremarkable, chest x-ray with persistent left basilar opacity possibly effusion and atelectasis, CT brain with chronic involutional changes, EKG with sinus rhythm with right bundle jordan block and left anterior fascicular block with no acute evidence of ischemia. In the ED patient administered Lasix 40 mg IV x1. 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) Iron deficiency anemia (Chronic) Recurrent falls (Chronic) Medical History: Medical History (Last Reviewed 05/23/19 @ 11:50 by Liudmila Byrd) Lower extremity edema (Chronic) R60.0 Atherosclerotic heart disease of hopi coronary artery without angina pectoris (Chronic) I25.10 History of non-ST elevation myocardial infarction (NSTEMI) (Chronic) Onset Date: 04/2019 I25.2 05/2018, 03/2019, 04/2019 Acute on chronic systolic (congestive) heart failure (Chronic) I50.23 Essential (primary) hypertension (Chronic) I10 Hyperlipemia (Chronic) E78.5 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) I45.2 Iron deficiency anemia (Chronic) D50.9 Recurrent falls (Chronic) R29.6 Anemia D64.9 Chronic kidney disease, stage 3 (moderate) N18.3 Chronic renal insufficiency N18.9 Closed fracture of left inferior pubic ramus S32.592A History of Sjogren's disease Z87.39 Rheumatoid arthritis M06.9 ARF (acute renal failure) (Resolved) GI bleed K92.2 Pleural effusion, left J90 Syncope and collapse R55 Chronic diastolic (congestive) heart failure (Ruled-out) I50.32 Diastolic dysfunction (Inactive) I51.9 Left ventricular hypertrophy (Inactive) I51.7 Allergies adalimumab [From Humira] Allergy (Verified 05/27/19 14:49) Rash ciprofloxacin HCl [From Cipro] Allergy (Verified 05/27/19 14:49) Unknown doxazosin Allergy (Verified 05/27/19 14:49) Other hydroxyzine [From Vistaril] Allergy (Verified 05/27/19 14:49) Other latex Allergy (Verified 05/27/19 14:49) Rash levofloxacin [From Levaquin] Allergy (Verified 05/27/19 14:49) Unknown lisinopril Allergy (Verified 05/27/19 14:49) Other COUGH Methotrexate Analogues Allergy (Verified 05/27/19 14:49) Hives naproxen Allergy (Verified 05/27/19 14:49) Unknown potassium clavulanate [From Augmentin] Allergy (Verified 05/27/19 14:49) Unknown Sulfa (Sulfonamide Antibiotics) Allergy (Verified 05/27/19 14:49) Unknown amlodipine Adverse Reaction (Severe, Verified 05/27/19 14:49) edema haloperidol lactate [From Haldol] Adverse Reaction (Unknown, Verified 05/27/19 14:49) agitation amoxicillin trihydrate [From Augmentin] Adverse Reaction (Verified 05/27/19 14:49) Upset Stomach hydromorphone HCl [From Dilaudid] Adverse Reaction (Verified 05/27/19 14:49) Other HALLUCINATIONS hydroxychloroquine sulfate [From Plaquenil] Adverse Reaction (Verified 05/27/19 14:49) Other VISION ISSUES Home Medications: Ambulatory Orders Medication Instructions Recorded Multivit-Min/FA/Lycopen/Lutein 1 tab PO DAILY 04/01/15 [Centrum Silver Tablet] Cholecalciferol (Vitamin D3) 5,000 unit PO DAILY 06/06/18 [Vitamin D3] Cyanocobalamin (Vitamin B-12) 1,000 mcg PO DAILY 06/06/18 [B-12] Vit C/E/Zn/Coppr/Lutein/Zeaxan 1 cap PO BID 06/06/18 [Preservision Areds 2 Softgel] atorvastatin 20 mg tablet 20 mg PO QHS 06/21/18 potassium chloride 10 mEq 10 meq PO QHS cap 06/21/18 capsule,extended release Brimonidine Tartrate/Timolol 1 drp EACH EYE BID 02/13/19 [Combigan Eye Drops] Latanoprost 1 drp EACH EYE QHS 02/13/19 isosorbide mononitrate 60 mg 60 mg PO DAILY tab 02/19/19 tablet,extended release 24 hr Metoprolol Tartrate [Lopressor 75 mg PO BID 03/20/19 (beta elena)] Ranolazine [Ranexa] 1,000 mg PO BID 03/20/19 Acetaminophen [Tylenol] 1,000 mg PO Q8H 04/28/19 Lifitegrast [Xiidra] 1 ea OP BID 04/29/19 fluticasone propionate 50 1 spray INTRANASAL DAILY PRN PRN 05/23/19 mcg/actuation nasal spray,suspension Calcium Carb/Vitamin D 1 tab PO BIDCM 05/27/19 [Caltrate-600 With Vit D Tab] Furosemide [Lasix] 40 mg PO DAILY 05/27/19 Nitroglycerin [Nitrostat] 0.4 mg SUBLINGUAL Q5M PRN 05/27/19 Surgical History: Surgical History (Last Reviewed 05/23/19 @ 11:50 by Liudmila Byrd) History of coronary artery stent placement (Resolved) Onset Date: 05/21/09 Z95.5 PCI-NIGHAT-RCA w/ 2.5 x 28 mm Promus Stent x 2, NIGHAT-Ramus w/ 2.25 x 20 Taxus Stent 05/21/2009 History of carpal tunnel release Z98.890 History of left heart catheterization Onset Date: 06/07/18 Z98.890 History of left hip replacement Z96.642 History of right hip hemiarthroplasty Z96.641 Surgical History: angioplasty, total hip arthroplasty - Bilateral, - - Carpal tunnel surgery, PCI, bilateral total hip replacement. Psychiatric History: No pertinent psych hx EMERGENCY MEDICINE History: No pertinent EMERGENCY MEDICINE history Lives: Spouse/ Significant Other Smoking Status: Never smoker Tobacco Use: Non-smoker Alcohol: None Drugs: None - *Family History Paternal Family History: Family History (Last Reviewed 05/23/19 @ 11:50 by Liudmila Byrd) Father No problems noted. History Items: Heart Disease Maternal Family History: Family History (Last Reviewed 05/23/19 @ 11:50 by Liudmila Byrd) Father No problems noted. History Items: Cancer - Mother with history of breast cancer. Review of Systems Constitutional: Reports: Malaise, Weakness, Fatigue. Denies: Anorexia, Chills, Fever, Weight Change HEENT: Denies: Head Aches, Sinus Congestion, Sinus Drainage Cardiovascular: Reports: Edema, Orthopnea. Denies: Chest Pain, Chest Pressure, Chest Tightness, Light Headedness, Palpitations, Syncope Respiratory: Reports: Shortness of Breath, Shortness of breath upon exertion. Denies: Cough, Shortness of breath at rest, Sputum production Gastrointestinal: Denies: Abdominal Pain, Nausea, Vomiting Genitourinary: Reports: Frequency. Denies: Dysuria Musculoskeletal: Reports: Back Pain, Joint Pain. Denies: Joint Tenderness Skin: Denies: Rash, Wounds Neurological: Denies: Numbness, Tingling, Focal weakness Psychiatric: Denies: Anxiety, Depression, Homicidal Ideations, Suicidal Ideations Hematologic/ Lymphatic: Reports: Easy Bruising, Easy Bleeding VTE Information - Inpt Only VTE Present on Admission: No VTE Mechan Device Prophylaxis: SCD's VTE Pharm Prophylaxis ordered?: Yes Patient Problems: Active and Suspected Problems (Last Reviewed 05/23/19 @ 11:50 by Liudmila Byrd) SYLVIA (acute kidney injury) (Acute) CHF (congestive heart failure) (Acute) Subjective: Seated upright in ED bed, mildly fatigued appearance, no acute distress. Objective: Physical Examination: General: awake, alert, oriented to self, place, recent events, appears currently intact but has been confused per discussion with patient and family, remains cooperative, seated upright in the ED bed in no apparent distress. Skin: normal color, turgor, no icterus, cyanosis. HEENT: AT/NC, EOMI, PERRLA, mildly dry MM, no carotid bruits, + JVD noted. Lungs: Diminished breath sounds, greater bases, mild rales bases, moderate effort, no obvious rhonchi or wheezing. Heart: Regular rate and rhythm; no gallop, rub audible, + SM. Abdomen: soft, thin habitus, NTTP, ND, normal BS, no HSM. Extremities: no cyanosis, clubbing, pedal to mid ascencio 1+ pitting edema. Neurological: patient awake, alert, oriented as noted; cognitive function improved, currently appears baseline intact per discussion with family but has been intermittently confused; pupils equally reactive to light and accomodation; cranial nerves II-XII grossly normal, moving all 4 extremities, no focal deficits, strength severely global decrease. Psychiatric: affect appears fatigued, otherwise normal, no acute evidence of depressive or anxiety feelings. - Physical Exam Vitals/I&O's: Vital Signs Temp Pulse Resp BP Pulse Ox 97.4 F L 61 14 83/72 L 100 05/27/19 14:49 05/27/19 17:27 05/27/19 17:27 05/27/19 17:27 05/27/19 17:27 Oxygen Delivery Method Room Air Weight: 130 lb Body Mass Index (BMI) 22.3 Laboratory Results 05/27/19 15:50: WBC 12.7 H, RBC 2.93 L, Hgb 10.1 L, Hct 32.3 L, MCV 110.2 H, MCH 34.5 H, MCHC 31.3 L, RDW Std Deviation 75.4 H, RDW Coeff of Myke 18.9 H, Plt Count 210, MPV 12.7 H, Immature Gran % (Auto) 1.200 H, Neut % (Auto) 77.2 H, Lymph % (Auto) 10.2 L, [place] % (Auto) 10.2 H, Eos % (Auto) 0.9, Baso % (Auto) 0.3, Absolute Neuts (auto) 9.8 H, Absolute Lymphs (auto) 1.30, Nucleated RBC % 0.3, Differential Comment SCANNED 05/27/19 15:50: Sodium 134 L, Potassium 4.8, Chloride 101, Carbon Dioxide 26.0, Anion Gap 7, BUN 84 H, Creatinine 2.88 H, Estim Creat Clear Calc 13.68, Est GFR (MDRD) Af Amer 20 L, Est GFR (MDRD) Non-Af 17 L, BUN/Creatinine Ratio 29.2 H, Glucose 164 H, Calcium 9.4, Total Bilirubin 0.70, AST 184 H, ALT 148 H, Alkaline Phosphatase 163 H, Troponin I 0.114 H, Total Protein 7.5, Albumin 2.7 L, Globulin 4.8 H, Albumin/Globulin Ratio 0.6 L 05/27/19 15:50: B-Natriuretic Peptide > 5000.0 H 05/27/19 17:29: Urine Color Yellow, Urine Clarity Clear, Urine pH 5.0, Ur Specific [place] 1.010, Urine Protein 100 H, Urine Glucose (UA) Normal, Urine Ketones Negative, Urine Occult Blood Negative, Urine Nitrite Negative, Urine Bilirubin Negative, Urine Urobilinogen Normal, Ur Leukocyte Esterase 25 H, Urine RBC 0 SEEN, Urine WBC 0-5 SEEN, Ur Squamous Epith Cells 0 SEEN, Ur Transition Epith Cell 0-5 SEEN, Amorphous Sediment 2+, Urine Bacteria 0 SEEN, Hyaline Casts 5-10 SEEN, Urine Mucus 0 SEEN Assessment/Plan All Active Problems (Last Reviewed 05/23/19 @ 11:50 by Liudmila Byrd) SYLVIA (acute kidney injury) (Acute) CHF (congestive heart failure) (Acute) Dyspnea (Acute) History of coronary artery stent placement (Resolved 05/21/09) Acute on chronic systolic (congestive) heart failure (Acute) ARF (acute renal failure) (Resolved) Fracture of femoral neck, left (Resolved) Hypertensive emergency (Resolved) Injury of left shoulder and upper arm (Resolved) Pyelonephritis, acute (Resolved) Scalp laceration (Resolved) Chronic diastolic (congestive) heart failure (Ruled-out) The patient is a 78 y/o F w/ PMHx: Chronic anemia, Chronic Systolic/Diastolic CHF, HTN, HLD, Hx NSTEMI, CAD s/p PCI NIGHAT RCA, CKD stage III, Rheumatoid arthritis, Sjogren's disease who presents to the [facility] ED on 05/27/19 with history of worsening lower extremity edema, weight gain and orthopnea with increasing falls over the last several days with concurrently increased irritability and confusion recently discharged on 05/05/19 following CHF exacerbation admission with prior to this noted ED vision 05/01/19 with slightly displaced fractures of the medial left inferior and superior pubic rami; however patient and family note that fpc facility [facility] had been recommended but her insurance declined coverage therefore should return to home with home therapies. 1. Acute Decompensated Systolic/Diastolic CHF: CXR obtained in the ED w/ no significant congestion noted however recent worsening lower extremity edema, weight gain and orthopnea concerning especially with underlying history. Patient administered IV lasix in the ED, will admit to PCU, maintain on cardiac telemetry obtain cardiac enzyme series, obtain serial EKGs, continue IV lasix diuresis, monitor I/Os, maintain on intake restriction, continue medical therapy including Ranexa, obtain TSH and magnesium level. Most recent ECHO noted 04/29/2019 with normal LV size, EF 20%, stage I diastolic dysfunction, moderate MVI, PASP 36 mmHg, mild JIMMIE therefore will not repeat. Cardiology consulted and recently discharged with the same diagnosis, pending. PRN morphine to decrease afterload, continue oxygen supplementation, if necessary will position w/ upright position with legs off bed to decrease preload. PT/OT/case management consultation for discharge planning with need for fpc facility given patient underlying history, serial readmissions. 2. Acute kidney injury on CKD stage III: Secondary to acute presentation, poor intake, medications likely. Admission BUN/Cr 4/2.88, prior baseline creatinine noted to be 1.8-2.2, most recently 05/04/2019 creatinine 2.04, will continue IV diuresis as noted #1, if continued worsening renal function would obtain FeNa assessment as well as renal US with consideration Nephrology consultation. 3. Elevated liver functions, transaminitis: Suspected secondary to #1, admission AST/ALT 184/148, alk phos 163, most recently on 05/01/19 normal functions, continue treatment as noted #1 with diuresis, trend CMP. If remains further elevated may consider hepatitis panel as recent hepatitis A prevalent in the community. 4. Indeterminate cardiac enzyme: EKG in ED sinus rhythm with right bundle jordan block and left anterior fascicular block with no acute evidence of ischemia., CXR w/ no acute cardiopulmonary findings, initial trop 0.114, from prior review normally mildly elevated with most recent 04/29/[address] on a monitored bed to assure no acute myocardial infarction with serial cardiac enzymes and EKGs. ASA, NG, morphine. 5. CAD: Status post PCI, continue aspirin, metoprolol, statin therapy, not on VALENTE inhibitor or ARB. 6. Hypertension: Continue home regimen including isosorbide, metoprolol, IV Lasix as noted, PRN hydralazine. 7. Hyperlipidemia: Continue home statin regimen. AM FLP. 8. Chronic anemia: Appears macrocytic, admission hemoglobin 10.1, baseline appears 9-10 range normally, most recently 05/02/2019 11.5, obtain vitamin B12 and folic acid levels, continue to trend and continue supplementations. 9. Rheumatoid arthritis: From review of current list not on regimen, continue outpatient follow-up with rheumatology as needed. 10. Sjogren's disease: Continue home xiidra regimen. 11. DVT prophylaxis: SCDs, heparin. 12. CODE status: Patient CRISTÓBAL is her daughter who is present and living will is currently in place. Discussed CODE status at length including difference between FULL code, DNR-CCA and DNR-CC status. Following discussions about the differences in these status, requested full code per patient however daughter did appear reticent therefore further discussions may be necessary especially given patient age and significant underlying disease likelihood of a good prognosis following a code low. Advanced Care Planning Face to Face Time: 16 minutes. Code Visit Inpatient E&M: 27032 Init Hosp L3 Procedures: 03049 Advncd Care Plan 30 Min
[2019-05-27] MEDS: Furosemide 40 MG/4 ML Vial IV (19:27)
[2019-05-27 21:54] LABS: Hemoglobin A1c 5.4 % (4.2-6.3)
[2019-05-27 22:17] LABS: Magnesium 2.8 mg/dL (1.6-2.6); Thyroid Stim Hormone (TSH) 3.18 uIU/mL (0.358-3.74)
[2019-05-27] MEDS: MELATONIN 3 MG TABLET PO (22:22)
[2019-05-27] MEDS: Ranolazine 500 MG Tablet 1000 MG PO (22:22)
[2019-05-27] MEDS: Atorvastatin Calcium 20 MG Tablet PO (22:22)
[2019-05-27] MEDS: Metoprolol Tartrate 50 MG Tablet 75 MG PO (22:22)
[2019-05-27] MEDS: Timolol 0.5% 5ML OPTH.BTL 1 DRP EACH EYE (22:23)
[2019-05-27] MEDS: BRIMONIDINE 0.2% 5ML BOTTLE 1 DRP EACH EYE (22:23)
[2019-05-27] MEDS: Latanoprost 0.005% 1 Bottle 1 DRP EACH EYE (22:24)
[2019-05-27] MEDS: Heparin Injection (Vial) 5,000 UNIT/ML VIAL 5000 UNIT SC (22:26)
[2019-05-27] MEDS: 0.9% Saline Lock 10 ML Syringe IV ×2 (23:13→23:14)
[2019-05-28] VITALS (13 sets, daily range): BP systolic 112–142; BP diastolic 53–89; PULSE 59–67; RESP 16–18; TEMP 36.4–36.8; O2SAT 96–100
[2019-05-28 02:27] LABS: Absolute Lymphocyte Count 1.44 X10^3/uL (0.83-4.51); Absolute Neutrophil Count 9.1 X10^3/uL (2.0-7.7); Basophil# 0.04 X10^3/uL; Basophil% 0.3 % (0-1); Differential Indicated SCAN CRITERIA MET; Eosinophil# 0.23 X10^3/uL; Eosinophils% 1.9 % (0-5); Hematocrit 32.6 % (37-47); Hemoglobin 10.2 g/dL (12.0-15.0); Lymphocyte # 1.44 X10^3/ul (4.0); Mean Corp Hgb Conc 31.3 g/dL (32-36); Mean Corpuscular Hgb 34.3 pg (27.0-32.0); Mean Corpuscular Volume 109.8 fL (81-99); Mean Platelet Vol. 12.5 fl (6.2-12.0); Monocyte# 1.02 X10^3/uL; Monocyte% 8.5 % (0-10); NRBC Flagged by Analyzer 0.3 % (0-5); Neutrophil # 9.13 X10^3/uL (2.7-7.7); Neutrophil % 76.5 % (47-70); POSITIVE MORPHOLOGY YES; Platelet Count 210 K/mm3 (150-450); RBC Distribution Width SD 75.4 fl (35.1-43.9); Red Blood Count 2.97 M/mm3 (4.2-5.4)
[2019-05-28 02:41] LABS: Anisocytosis 1+; Macrocytosis 1+; Platelet Estimate ADEQUATE (ADEQ); Polychromasia 1+
[2019-05-28 02:46] LABS: ALB/GLOB Ratio 0.5 RATIO (0.9-2.4); AST(SGOT) 169 U/L (15-37); Alanine Aminotransfer ALT/SGPT 152 U/L (13-56); Albumin, Serum 2.5 g/dL (3.2-5.0); Alkaline Phosphatase 152 U/L (45-117); BUN 84 mg/dL (7-18); BUN/Creat Ratio 29.8 RATIO (10-20); Calcium,Total 9.1 mg/dL (8.5-10.1); Chloride 103 mmol/L (98-107); Creatinine, Serum 2.82 mg/dL (0.55-1.02); EST Glomerular Filtration Rate 17 mL/min (>60); Est Glom Filt Rate - Afr Amer 21 mL/min (>60); Globulin 4.6 g/dL (2.2-4.2); Glucose 143 mg/dL (74-106); Potassium 4.8 mmol/L (3.5-5.1); Protein, Total 7.1 g/dL (6.4-8.2); Sodium Level 137 mmol/L (136-145)
[2019-05-28 02:47] LABS: Anion Gap 8 (5-15)
[2019-05-28] MEDS: Acetaminophen 325 MG Tablet 650 MG PO (03:04)
[2019-05-28] MEDS: 0.9% Saline Lock 10 ML Syringe IV ×3 (03:05→17:49)
--- NOTE | 2019-05-28 05:55 | EKG12_ITS ---
Test Reason : AM Blood Pressure : / mmHG Vent. Rate : 059 BPM Atrial Rate : 059 BPM P-R Int : 188 ms QRS Dur : 174 ms QT Int : 514 ms P-R-T Axes : 061 -69 066 degrees QTc Int : 508 ms Sinus bradycardia Right bundle branch block Left anterior fascicular block Bifascicular block Anterior infarct , age undetermined Abnormal ECG When compared with ECG of 27-MAY-2019 15:29, MANUAL COMPARISON REQUIRED, DATA IS UNCONFIRMED Confirmed by JEROME HUGHES ([id number]), non linear editor RAFAEL OTERO ([id number]) on 05/30/2019 1:32:37 PM Referred By: RENITA Confirmed By:JEROME HUGHES
--- NOTE | 2019-05-28 05:55 | RAD_ITS ---
STUDY: X-RAY CHEST REASON FOR EXAM: Female, 78 years old. DYSPNEA TECHNIQUE: PA and lateral views of the chest. COMPARISON: Comparison is made with prior examination dated May 27, 2019. FINDINGS: EKG electrodes are seen. A left-sided portacatheter is in situ with the tip in the right atrium. Stable left lower lobe atelectasis and/or infiltrate with blunting of the left costophrenic angle. There is no demonstrated pleural abnormality. Normal size heart. Normal mediastinum and yeyo. Normal visualized pulmonary arteries. Normal visualized aortic arch and descending thoracic aorta. There is demineralization of the osseous structures. Normal visualized ribs, clavicles, and shoulders. There is no demonstrated abnormality of the visualized soft tissue structures of the upper abdomen. RAD/Chest PA and Lateral IMPRESSION: Stable examination. Electronically Signed: Zaheer Silverio, at 10:51 EST , Service support ,
[2019-05-28 09:10] LABS: Vitamin B12 > 2000 pg/mL (211-911)
[2019-05-28] MEDS: BRIMONIDINE 0.2% 5ML BOTTLE 1 DRP EACH EYE ×2 (09:38→21:29)
[2019-05-28] MEDS: Isosorbide Mononitrate 60 MG Tablet PO (09:38)
[2019-05-28] MEDS: Heparin Injection (Vial) 5,000 UNIT/ML VIAL 5000 UNIT SC ×2 (09:38→21:29)
[2019-05-28] MEDS: Ranolazine 500 MG Tablet 1000 MG PO ×2 (09:38→21:30)
[2019-05-28] MEDS: Ensure Clear 120 ML Liquid PO ×2 (09:38→17:49)
[2019-05-28] MEDS: Aspirin E.C. 81 MG Tablet PO (09:38)
[2019-05-28] MEDS: Cyanocobalamin 500 MCG Tablet 1000 MCG PO (09:38)
[2019-05-28] MEDS: Metoprolol Tartrate 50 MG Tablet 75 MG PO ×2 (09:39→21:29)
[2019-05-28] MEDS: Timolol 0.5% 5ML OPTH.BTL 1 DRP EACH EYE ×2 (09:39→21:30)
[2019-05-28] MEDS: Furosemide 40 MG/4 ML Vial IV ×2 (09:39→17:49)
--- NOTE | 2019-05-28 13:16 | US_ITS ---
STUDY: RENAL ULTRASOUND - COMPLETE REASON FOR EXAM: Female, 78 years old. RENAL FAILURE TECHNIQUE: Ultrasound evaluation of the kidneys was performed with real-time and static whyte-scale imaging. COMPARISON: None. FINDINGS: Visualization of the bilateral kidneys is limited. Right kidney: Measures 8.0 cm. Normal contour. Renal cortical thickness appears decreased. 2 cysts are identified the largest of which measures up to 1.9 cm. There is a nonobstructing stone measuring 7 mm. Left kidney: Measures 8.5 cm. Normal contour. Renal cortical thickness appears decreased. One cyst is noted measuring up to 1.7 cm. No masses, stones, or hydronephrosis identified. Bladder: Partially decompressed and not well evaluated. US/Kidney and Bladder IMPRESSION: Limited examination due to body habitus and sonographic technique. 7 mm nonobstructing renal stone. Bilateral renal cortical atrophy indicate medical renal disease. Electronically Signed: Vikas Ashraf, at 19:13 EST Tel , Service support ,
--- NOTE | 2019-05-28 13:25 | PCM.PN.HOSP ---
<César Bates - Last Filed: 05/28/19 13:25> Patient Problems: Active and Suspected Problems (Last Reviewed 05/23/19 @ 11:50 by Liudmila Byrd) SYLVIA (acute kidney injury) (Acute) CHF (congestive heart failure) (Acute) Reason for Visit: LE edema Subjective: LE edema improved. NO SOB. No cough. No CP/pressure/tightness. No fever/chills. Pt denies hx liver disease, alcohol use, tylenol use, hepatitis. Vitals/I&O's: Vital Signs Temp Pulse Resp BP Pulse Ox 97.7 F L 65 16 135/68 H 98 05/28/19 09:32 05/28/19 09:39 05/28/19 09:32 05/28/19 09:32 05/28/19 09:32 Oxygen Delivery Method Room Air Weight: 104 lb 4.458 oz Body Mass Index (BMI) 17.9 Intake and Output for Last 24 Hours 05/26/19 05/27/19 05/28/19 23:59 23:59 23:59 Intake Total 240 / 240 340 / 340 Output Total 500 / 500 Balance -260 / -260 340 / 340 General: Alert, Oriented x3, Cooperative HEENT: Atraumatic, PERRLA, EOMI, Normocephalic Neck: Supple, No JVD, Negative Carotid Bruits Lungs: Clear to auscultation, Normal air movement Cardiovascular: Regular rate, No murmurs Abdomen: Bowel Sounds Present, Soft, Non Tender Extremities: Capillary Refill Less than 3 Seconds, Edema - trace Skin: No rashes, No breakdown Musculoskeletal: No Tenderness to Palpation of Joints or Extremities Neurological: Cranial nerves II-XII grossly intact Psych/Mental Status: Normal Affect, Appropriate, Alert and oriented to time, place, person, mood and affect Laboratory Results 05/27/19 15:50: WBC 12.7 H, RBC 2.93 L, Hgb 10.1 L, Hct 32.3 L, MCV 110.2 H, MCH 34.5 H, MCHC 31.3 L, RDW Std Deviation 75.4 H, RDW Coeff of Myke 18.9 H, Plt Count 210, MPV 12.7 H, Immature Gran % (Auto) 1.200 H, Neut % (Auto) 77.2 H, Lymph % (Auto) 10.2 L, [place] % (Auto) 10.2 H, Eos % (Auto) 0.9, Baso % (Auto) 0.3, Absolute Neuts (auto) 9.8 H, Absolute Lymphs (auto) 1.30, Nucleated RBC % 0.3, Differential Comment SCANNED 05/27/19 15:50: Sodium 134 L, Potassium 4.8, Chloride 101, Carbon Dioxide 26.0, Anion Gap 7, BUN 84 H, Creatinine 2.88 H, Estim Creat Clear Calc 13.68, Est GFR (MDRD) Af Amer 20 L, Est GFR (MDRD) Non-Af 17 L, BUN/Creatinine Ratio 29.2 H, Glucose 164 H, Calcium 9.4, Total Bilirubin 0.70, AST 184 H, ALT 148 H, Alkaline Phosphatase 163 H, Troponin I 0.114 H, Total Protein 7.5, Albumin 2.7 L, Globulin 4.8 H, Albumin/Globulin Ratio 0.6 L 05/27/19 15:50: B-Natriuretic Peptide > 5000.0 H 05/27/19 17:29: Urine Color Yellow, Urine Clarity Clear, Urine pH 5.0, Ur Specific [place] 1.010, Urine Protein 100 H, Urine Glucose (UA) Normal, Urine Ketones Negative, Urine Occult Blood Negative, Urine Nitrite Negative, Urine Bilirubin Negative, Urine Urobilinogen Normal, Ur Leukocyte Esterase 25 H, Urine RBC 0 SEEN, Urine WBC 0-5 SEEN, Ur Squamous Epith Cells 0 SEEN, Ur Transition Epith Cell 0-5 SEEN, Amorphous Sediment 2+, Urine Bacteria 0 SEEN, Hyaline Casts 5-10 SEEN, Urine Mucus 0 SEEN 05/27/19 20:40: Magnesium 2.8 H, Troponin I 0.100 H, Folate 56.20 H, TSH 3.18, Free T4 1.10 05/27/19 20:40: Hemoglobin A1c 5.4 05/27/19 20:40: Vitamin B12 > 2000 H 05/27/19 23:10: Troponin I 0.096 H 05/28/19 02:17: WBC 12.0 H, RBC 2.97 L, Hgb 10.2 L, Hct 32.6 L, MCV 109.8 H, MCH 34.3 H, MCHC 31.3 L, RDW Std Deviation 75.4 H, RDW Coeff of Myke 19.0 H, Plt Count 210, MPV 12.5 H, Immature Gran % (Auto) 0.800, Neut % (Auto) 76.5 H, Lymph % (Auto) 12.0 L, [place] % (Auto) 8.5, Eos % (Auto) 1.9, Baso % (Auto) 0.3, Absolute Neuts (auto) 9.1 H, Absolute Lymphs (auto) 1.44, Nucleated RBC % 0.3, Differential Comment COMMENT, Platelet Estimate ADEQUATE, Polychromasia 1+, Anisocytosis 1+, Macrocytosis 1+ 05/28/19 02:17: Sodium 137, Potassium 4.8, Chloride 103, Carbon Dioxide 26.0, Anion Gap 8, BUN 84 H, Creatinine 2.82 H, Estim Creat Clear Calc 12.10, Est GFR (MDRD) Af Amer 21 L, Est GFR (MDRD) Non-Af 17 L, BUN/Creatinine Ratio 29.8 H, Glucose 143 H, Calcium 9.1, Total Bilirubin 0.60, AST 169 H, ALT 152 H, Alkaline Phosphatase 152 H, Total Protein 7.1, Albumin 2.5 L, Globulin 4.6 H, Albumin/Globulin Ratio 0.5 L 05/28/19 02:17: Troponin I 0.132 H 05/28/19 06:55: Troponin I 0.096 H Current Medications Acetaminophen (Tylenol) 650 mg PO Q6H PRN PRN PRN Reason: Pain Score 1-10/Temp > 100.7 F Last Admin: 05/28/19 03:04 Dose: 650 mg Documented by: Al Hydroxide/Mg Hydroxide (Mylanta Ii) 30 ml PO Q6H PRN PRN PRN Reason: Gastric Burning Albuterol Sulfate (Ventolin Aerosols) 2.5 mg INHALATION Q2H PRN PRN PRN Reason: SOB/Wheezing Artificial Tears (Tears Naturale, Artificial Tears) 1 - 2 drop EACH EYE Q2H PRN PRN PRN Reason: DRY EYES Aspirin (Ecotrin) 81 mg PO DAILY@0800 [facility] Last Admin: 05/28/19 09:38 Dose: 81 mg Documented by: Atorvastatin Calcium (Lipitor) 20 mg PO QHS [facility] Last Admin: 05/27/19 22:22 Dose: 20 mg Documented by: Brimonidine Tartrate (Brimonidine 0.2% 5ml Bottle) 1 drop EACH EYE BID [facility] Last Admin: 05/28/19 09:38 Dose: 1 drop Documented by: Cyanocobalamin (Vitamin B12) 1,000 mcg PO DAILY [facility] Last Admin: 05/28/19 09:38 Dose: 1,000 mcg Documented by: Fluticasone Propionate (Flonase Nasal [place]) 1 spray NASAL DAILY PRN PRN PRN Reason: ALLERGIES Furosemide (Lasix) 40 mg IV BIDLX [facility] Last Admin: 05/28/19 09:39 Dose: 40 mg Documented by: Glucagon () 1 mg IM .X1 PRN PRN Reason: Hypoglycemia Guaifenesin (Robitussin) 20 ml PO Q4H PRN PRN PRN Reason: COUGH Heparin Sodium (Porcine) (Heparin Na) 5,000 unit SC Q12 [facility] Last Admin: 05/28/19 09:38 Dose: 5,000 unit Documented by: Hydralazine HCl (Apresoline Iv) 10 mg IV Q4H PRN PRN PRN Reason: SBP > 160 Dextrose (Dextrose 10%-Water) 250 mls @ 999 mls/hr IV .Q16M PRN; Protocol PRN Reason: HYPOGLYCEMIA Sodium Chloride () 250 mls @ 15 mls/hr IV .[id number] PRN PRN Reason: Saline Flush Sodium Chloride () 250 mls @ 15 mls/hr IV .[id number] PRN PRN Reason: Additional IVPB Infusion Isosorbide Mononitrate (Imdur) 60 mg PO DAILY [facility] Last Admin: 05/28/19 09:38 Dose: 60 mg Documented by: Latanoprost (Xalatan Opthalmic) 1 drop EACH EYE QHS [facility] Last Admin: 05/27/19 22:24 Dose: 1 drop Documented by: Magnesium Hydroxide (Milk Of Magnesia) 30 ml PO DAILY PRN PRN PRN Reason: Constipation Melatonin (Melatonin) 3 mg PO QHS PRN PRN PRN Reason: INSOMNIA Last Admin: 05/27/19 22:22 Dose: 3 mg Documented by: Metoprolol Tartrate (Lopressor (Beta Brandyn)) 75 mg PO BID [facility] Last Admin: 05/28/19 09:39 Dose: 75 mg Documented by: Nitroglycerin (Nitrostat) 0.4 mg SUBLINGUAL Q5M PRN PRN Reason: CARDIAC/CHEST PAIN Nutritional Formula (Lactose Free) (Ensure Clear) 120 ml PO 4X/DAY [facility] Last Admin: 05/28/19 13:01 Dose: Not Given Documented by: Ondansetron HCl (Zofran) 4 mg IV Q8H PRN PRN PRN Reason: NAUSEA/VOMITING Potassium Chloride (K-Dur) 10 meq PO QHS [facility] Last Admin: 05/27/19 22:22 Dose: 10 meq Documented by: Psyllium Hydrophilic Mucilloid (Metamucil) 1 packet PO DAILY PRN PRN PRN Reason: Constipation Ranolazine (Ranexa) 1,000 mg PO BID [facility] Last Admin: 05/28/19 09:38 Dose: 1,000 mg Documented by: Senna/Docusate Sodium (Senokot-S, Rocio-Colace) 2 tablet PO BID PRN PRN PRN Reason: Constipation Sodium Chloride () 10 - 40 ml IV UD PRN PRN Reason: SALINE FLUSH Last Admin: 05/28/19 09:41 Dose: 20 ml Documented by: Throat Lozenges (Cepacol Sore Throat Lozenge) 1 lozenge MUCOUS MEM Q2H PRN PRN PRN Reason: SORE THROAT Timolol Maleate (Timoptic) 1 drop EACH EYE BID [facility] Last Admin: 05/28/19 09:39 Dose: 1 drop Documented by: STROKE Vital Signs/Narrative: Vital Signs Temp Pulse Resp BP Pulse Ox 05/28/19 09:39 65 05/28/19 09:32 97.7 F L 65 16 135/68 H 98 Medical Necessity - Tobacco Use Smoking Status: Never smoker Tobacco Use: Non-smoker Assessment/Plan All Active Problems (Last Reviewed 05/23/19 @ 11:50 by Liudmila Byrd) SYLVIA (acute kidney injury) (Acute) CHF (congestive heart failure) (Acute) Dyspnea (Acute) History of coronary artery stent placement (Resolved 05/21/09) Acute on chronic systolic (congestive) heart failure (Acute) ARF (acute renal failure) (Resolved) Fracture of femoral neck, left (Resolved) Hypertensive emergency (Resolved) Injury of left shoulder and upper arm (Resolved) Pyelonephritis, acute (Resolved) Scalp laceration (Resolved) Chronic diastolic (congestive) heart failure (Ruled-out) 1. Acute systolic CHF - echo 04/29/19 shows EF 20%, St1 diastolic dysfunction, 2+ MVI, 1+ TVI, PASP 36. Continue lasix, lisinopril. Indetermiante troponin likely 2/2 CHF and Renal failure. BNP >5000. UA neg. 2. SYLVIA, CKDIV - nephrology consulted. Renal US pending. 3. CAD hx OK - aspirin, statin, imdur, metoprolol, ranexa 4. HTN - stable 5. HLD - statin 6. Hx anemia - stable. macrocytic, b12 >2000, folate 56. TSH/FT4 normal. Check inr. 7. Debility - falls. PTOT. CT brain chronic changes. 8. Abnormal LFTs - unclear etiology. obtain RUQ US. Denies hx alcohol, tylenol, hepatitis. Check inr. DVT ppx: heparin DC planning: likely needs placed or C. This patient was seen by César Bates PA-C under the supervision of Doctor Bowen. <Sanjay Wiseman - Last Filed: 05/28/19 15:13> Reason for Visit: CHF exacerbation. Patient also with recurrent fall mainly secondary to gait instability and incoordination Subjective: Lower extremity edema improved. Patient walked around the nursing station with help of physical therapist. No obvious dyspnea on exertion on walking. No chest pain. LFT elevated. Previous liver test was normal in April 2019. Vitals/I&O's: Vital Signs Temp Pulse Resp BP Pulse Ox 97.7 F L 65 16 135/68 H 98 05/28/19 09:32 05/28/19 09:39 05/28/19 09:32 05/28/19 09:32 05/28/19 09:32 Oxygen Delivery Method Room Air Weight: 104 lb 4.458 oz Body Mass Index (BMI) 17.9 Intake and Output for Last 24 Hours 05/26/19 05/27/19 05/28/19 23:59 23:59 23:59 Intake Total 240 / 240 340 / 340 Output Total 500 / 500 Balance -260 / -260 340 / 340 General: Alert, Oriented x3, Cooperative HEENT: Atraumatic, PERRLA, EOMI, Normocephalic Neck: Supple, No JVD, Negative Carotid Bruits Lungs: Clear to auscultation, No rhonchi, Diminished - Air entry diminished in bilateral lung bases. Cardiovascular: Regular rate, Regular Rhythm, Normal S1, Normal S2, No murmurs Abdomen: Bowel Sounds Present, Soft, Non Tender, Non-Distended Extremities: Capillary Refill Less than 3 Seconds, Edema Skin: No rashes, No breakdown Musculoskeletal: No Tenderness to Palpation of Joints or Extremities, Arthritic Changes, Muscle Wasting Neurological: Cranial nerves II-XII grossly intact, Deep Tendon Reflexes 2+/4 and Symmetrical, Neuro grossly intact Psych/Mental Status: Normal Affect, Appropriate Laboratory Results 05/27/19 15:50: WBC 12.7 H, RBC 2.93 L, Hgb 10.1 L, Hct 32.3 L, MCV 110.2 H, MCH 34.5 H, MCHC 31.3 L, RDW Std Deviation 75.4 H, RDW Coeff of Myke 18.9 H, Plt Count 210, MPV 12.7 H, Immature Gran % (Auto) 1.200 H, Neut % (Auto) 77.2 H, Lymph % (Auto) 10.2 L, [place] % (Auto) 10.2 H, Eos % (Auto) 0.9, Baso % (Auto) 0.3, Absolute Neuts (auto) 9.8 H, Absolute Lymphs (auto) 1.30, Nucleated RBC % 0.3, Differential Comment SCANNED 05/27/19 15:50: Sodium 134 L, Potassium 4.8, Chloride 101, Carbon Dioxide 26.0, Anion Gap 7, BUN 84 H, Creatinine 2.88 H, Estim Creat Clear Calc 13.68, Est GFR (MDRD) Af Amer 20 L, Est GFR (MDRD) Non-Af 17 L, BUN/Creatinine Ratio 29.2 H, Glucose 164 H, Calcium 9.4, Total Bilirubin 0.70, AST 184 H, ALT 148 H, Alkaline Phosphatase 163 H, Troponin I 0.114 H, Total Protein 7.5, Albumin 2.7 L, Globulin 4.8 H, Albumin/Globulin Ratio 0.6 L 05/27/19 15:50: B-Natriuretic Peptide > 5000.0 H 05/27/19 17:29: Urine Color Yellow, Urine Clarity Clear, Urine pH 5.0, Ur Specific [place] 1.010, Urine Protein 100 H, Urine Glucose (UA) Normal, Urine Ketones Negative, Urine Occult Blood Negative, Urine Nitrite Negative, Urine Bilirubin Negative, Urine Urobilinogen Normal, Ur Leukocyte Esterase 25 H, Urine RBC 0 SEEN, Urine WBC 0-5 SEEN, Ur Squamous Epith Cells 0 SEEN, Ur Transition Epith Cell 0-5 SEEN, Amorphous Sediment 2+, Urine Bacteria 0 SEEN, Hyaline Casts 5-10 SEEN, Urine Mucus 0 SEEN 05/27/19 20:40: Magnesium 2.8 H, Troponin I 0.100 H, Folate 56.20 H, TSH 3.18, Free T4 1.10 05/27/19 20:40: Hemoglobin A1c 5.4 05/27/19 20:40: Vitamin B12 > 2000 H 05/27/19 23:10: Troponin I 0.096 H 05/28/19 02:17: WBC 12.0 H, RBC 2.97 L, Hgb 10.2 L, Hct 32.6 L, MCV 109.8 H, MCH 34.3 H, MCHC 31.3 L, RDW Std Deviation 75.4 H, RDW Coeff of Myke 19.0 H, Plt Count 210, MPV 12.5 H, Immature Gran % (Auto) 0.800, Neut % (Auto) 76.5 H, Lymph % (Auto) 12.0 L, [place] % (Auto) 8.5, Eos % (Auto) 1.9, Baso % (Auto) 0.3, Absolute Neuts (auto) 9.1 H, Absolute Lymphs (auto) 1.44, Nucleated RBC % 0.3, Differential Comment COMMENT, Platelet Estimate ADEQUATE, Polychromasia 1+, Anisocytosis 1+, Macrocytosis 1+ 05/28/19 02:17: Sodium 137, Potassium 4.8, Chloride 103, Carbon Dioxide 26.0, Anion Gap 8, BUN 84 H, Creatinine 2.82 H, Estim Creat Clear Calc 12.10, Est GFR (MDRD) Af Amer 21 L, Est GFR (MDRD) Non-Af 17 L, BUN/Creatinine Ratio 29.8 H, Glucose 143 H, Calcium 9.1, Total Bilirubin 0.60, AST 169 H, ALT 152 H, Alkaline Phosphatase 152 H, Total Protein 7.1, Albumin 2.5 L, Globulin 4.6 H, Albumin/Globulin Ratio 0.5 L 05/28/19 02:17: Troponin I 0.132 H 05/28/19 06:55: Troponin I 0.096 H 05/28/19 14:25: PT 18.3 H, INR 1.5 Current Medications Acetaminophen (Tylenol) 650 mg PO Q6H PRN PRN PRN Reason: Pain Score 1-10/Temp > 100.7 F Last Admin: 05/28/19 03:04 Dose: 650 mg Documented by: Al Hydroxide/Mg Hydroxide (Mylanta Ii) 30 ml PO Q6H PRN PRN PRN Reason: Gastric Burning Albuterol Sulfate (Ventolin Aerosols) 2.5 mg INHALATION Q2H PRN PRN PRN Reason: SOB/Wheezing Artificial Tears (Tears Naturale, Artificial Tears) 1 - 2 drop EACH EYE Q2H PRN PRN PRN Reason: DRY EYES Aspirin (Ecotrin) 81 mg PO DAILY@0800 [facility] Last Admin: 05/28/19 09:38 Dose: 81 mg Documented by: Atorvastatin Calcium (Lipitor) 20 mg PO QHS [facility] Last Admin: 05/27/19 22:22 Dose: 20 mg Documented by: Brimonidine Tartrate (Brimonidine 0.2% 5ml Bottle) 1 drop EACH EYE BID [facility] Last Admin: 05/28/19 09:38 Dose: 1 drop Documented by: Cyanocobalamin (Vitamin B12) 1,000 mcg PO DAILY [facility] Last Admin: 05/28/19 09:38 Dose: 1,000 mcg Documented by: Fluticasone Propionate (Flonase Nasal [place]) 1 spray NASAL DAILY PRN PRN PRN Reason: ALLERGIES Furosemide (Lasix) 40 mg IV BIDLX [facility] Last Admin: 05/28/19 09:39 Dose: 40 mg Documented by: Glucagon () 1 mg IM .X1 PRN PRN Reason: Hypoglycemia Guaifenesin (Robitussin) 20 ml PO Q4H PRN PRN PRN Reason: COUGH Heparin Sodium (Porcine) (Heparin Na) 5,000 unit SC Q12 [facility] Last Admin: 05/28/19 09:38 Dose: 5,000 unit Documented by: Hydralazine HCl (Apresoline Iv) 10 mg IV Q4H PRN PRN PRN Reason: SBP > 160 Dextrose (Dextrose 10%-Water) 250 mls @ 999 mls/hr IV .Q16M PRN; Protocol PRN Reason: HYPOGLYCEMIA Sodium Chloride () 250 mls @ 15 mls/hr IV .[id number] PRN PRN Reason: Saline Flush Sodium Chloride () 250 mls @ 15 mls/hr IV .[id number] PRN PRN Reason: Additional IVPB Infusion Isosorbide Mononitrate (Imdur) 60 mg PO DAILY [facility] Last Admin: 05/28/19 09:38 Dose: 60 mg Documented by: Latanoprost (Xalatan Opthalmic) 1 drop EACH EYE QHS [facility] Last Admin: 05/27/19 22:24 Dose: 1 drop Documented by: Magnesium Hydroxide (Milk Of Magnesia) 30 ml PO DAILY PRN PRN PRN Reason: Constipation Melatonin (Melatonin) 3 mg PO QHS PRN PRN PRN Reason: INSOMNIA Last Admin: 05/27/19 22:22 Dose: 3 mg Documented by: Metoprolol Tartrate (Lopressor (Beta Brandyn)) 75 mg PO BID [facility] Last Admin: 05/28/19 09:39 Dose: 75 mg Documented by: Nitroglycerin (Nitrostat) 0.4 mg SUBLINGUAL Q5M PRN PRN Reason: CARDIAC/CHEST PAIN Nutritional Formula (Lactose Free) (Ensure Clear) 120 ml PO 4X/DAY [facility] Last Admin: 05/28/19 13:01 Dose: Not Given Documented by: Ondansetron HCl (Zofran) 4 mg IV Q8H PRN PRN PRN Reason: NAUSEA/VOMITING Potassium Chloride (K-Dur) 10 meq PO QHS [facility] Last Admin: 05/27/19 22:22 Dose: 10 meq Documented by: Psyllium Hydrophilic Mucilloid (Metamucil) 1 packet PO DAILY PRN PRN PRN Reason: Constipation Ranolazine (Ranexa) 1,000 mg PO BID [facility] Last Admin: 05/28/19 09:38 Dose: 1,000 mg Documented by: Senna/Docusate Sodium (Senokot-S, Rocio-Colace) 2 tablet PO BID PRN PRN PRN Reason: Constipation Sodium Chloride () 10 - 40 ml IV UD PRN PRN Reason: SALINE FLUSH Last Admin: 05/28/19 09:41 Dose: 20 ml Documented by: Throat Lozenges (Cepacol Sore Throat Lozenge) 1 lozenge MUCOUS MEM Q2H PRN PRN PRN Reason: SORE THROAT Timolol Maleate (Timoptic) 1 drop EACH EYE BID JOSLYN Last Admin: 05/28/19 09:39 Dose: 1 drop Documented by: Assessment/Plan This patient was seen in conjunction with César ZAVALA. I have independently interviewed and examined the patient and reviewed pertinent history, examination findings, laboratory and plan of management. I have reviewed the note and agree with the documented findings with the few additional points. In brief, patient is 78-year-old female was admitted with lower extremity edema and dyspnea on exertion and recurrent fall consistent with acute on chronic systolic and diastolic heart failure. Patient was admitted in April for similar diagnosis. Echo at that time shows EF 20%, stage I diastolic dysfunction, 2+ MR, 1+ TR, RVSP 36 mmHg. Chest x-ray independently reviewed and shows small left pleural effusion. Patient also has acute kidney injury on CKD stage IV. Mee environmental economist saw the patient and manage her diuretic at that time and is being consulted today. Renal ultrasound ordered. Patient also has elevated transaminases. Previous LFT on May 01, 2019 showed alkaline phosphatase 143 but normal transaminases. ALT 152, AST 169, alkaline phosphatase 152. Normal total bilirubin. Albumin 2.5. Patient does not have chronic alcohol use or substance use history and therefore consistent with liver congestion disease. On diuretic. Right upper quadrant sonogram ordered No recurrent fall: PT, OT and loftsman following the patient. Discussed with patient son-in-law in person and patient's daughter, DOMINIC Julien on phone. Patient had appointment with vascular surgeon and was told to have vascular study as she was found to have decreased peripheral pulses in lower extremities by tool and die designer. MOOSE ordered. Vascular surgeon consult to Dr. Deleon. Interdisciplinary rounds was done and discussed with nursing and ancillary staff. Total time of the visit including total time spent in counseling or coordination of care, (more than 50% of the total time, spent in obtaining medical information from nurses and other ancillary care providers), discussion with son-in-law and daughter, review of labs and imaging is 40 minutes I have discussed my assessment with César ZAVALA and orders have been reviewed. Code Visit Inpatient E&M: 95971 Subs Hosp L3
--- NOTE | 2019-05-28 14:16 | US_ITS ---
STUDY: ABDOMINAL ULTRASOUND - RIGHT UPPER QUADRANT REASON FOR VISIT: Female, 78 years old ABN LFTS TECHNIQUE: Ultrasound evaluation of the right upper quadrant was performed with real-time and static mathur-scale imaging. TECHNICAL QUALITY: Adequate. No COMPARISON: None. FINDINGS: Pancreas: Visualized portions of pancreas are unremarkable. Liver: Measures 14.8 cm. Liver shows normal echogenicity. No masses identified. Gallbladder: 3 mm polyp. Negative sonographic Cali''s sign. Common bile duct: Measures 3 mm. No intraductal stones identified. Kidneys were not evaluated on this examination. Additional findings: None. US/Abdomen Limited IMPRESSION: 3 mm gallbladder polyp. The kidney is not assessed on this examination. See same day renal ultrasound for evaluation of the kidneys. No acute process is identified. Electronically Signed: Vikas Ashraf, at 20:35 EST Tel , Service support ,
--- NOTE | 2019-05-28 14:22 | ART_ITS ---
Reason For Study: PAD Procedure A bilateral lower extremity continuous wave Doppler with analog waveform analysis and ankle brachial indexes. Left Segmental Pressures Left brachial= 145mmHg. Left posterior tibial artery = 126mmHg. Left dorsalis pedis artery = 132mmHg. The left dorsalis pedis waveforms are biphasic. The left posterior tibial artery waveforms are biphasic. Right Segmental Pressures Right brachial= 146mmHg. Right posterior tibial artery = 174mmHg. Right dorsalis pedis artery = 169mmHg. The right dorsalis pedis waveforms are triphasic. The right posterior tibial artery waveforms are triphasic. Indices The right ankle brachial index by the dorsalis pedis is 1.16. The right ankle brachial index by the posterior tibial artery is 1.19. The left ankle brachial index by the dorsalis pedis is .9. The left ankle brachial index by the posterior tibial artery is .86. Interpretation Summary 1. Right leg normal at rest with MOOSE 1.19 and triphasic flow. 2. Left with mild disease at rest with MOOSE 0.9 and biphasic flow. Ordering Physician: César Bates Performed By: LUKAS PANCHAL T
--- NOTE | 2019-05-28 14:26 | CASEMGMT ---
Addendum entered by Arin Frye 05/28/19 15:19: SW also spoke with patient with her son in law present. They are both aware TCU can take patient, but it is up to insurance to approve her. They asked about private pay and SW told them the cost for TCU. Arin SAVAGE Original Note: SW spoke with patient about going somewhere for short term rehab. She did not care for the outside facilities she has been to before, but she is open to going to [facility]. VINICIO spoke with [facility] and [facility] would have a bed for patient. [employer] will start the process to obtain insurance authorization. Plan: [facility] pending insurance approval. Arin SAVAGE
[2019-05-28 14:59] LABS: International Normalized Ratio 1.5; Prothrombin Time (Protime)PT. 18.3 SECONDS (11.7-14.9)
--- NOTE | 2019-05-28 15:24 | CASEMGMT ---
During multi-disciplinary rounds, therapy is recommending SNF for pt at discharge. Pt/family states they are interested in TCU at discharge. Per Tavo MOONEY, pt has a bed in TCU and they are starting precert at this time. Rachelle WILSON CM
[2019-05-28] MEDS: Atorvastatin Calcium 20 MG Tablet PO (21:30)
[2019-05-28] MEDS: Latanoprost 0.005% 1 Bottle 1 DRP EACH EYE (21:31)
[2019-05-28] MEDS: LIFITEGRAST 1 EACH DROPERETTE OP (21:44)
[2019-05-29] VITALS (12 sets, daily range): BP systolic 120–151; BP diastolic 53–70; PULSE 58–66; RESP 15–18; TEMP 36.4–36.8; O2SAT 94–100
[2019-05-29] MEDS: Acetaminophen 325 MG Tablet 650 MG PO (00:55)
[2019-05-29] MEDS: 0.9% Saline Lock 10 ML Syringe IV ×3 (04:40→18:16)
[2019-05-29 05:25] LABS: ALB/GLOB Ratio 0.6 RATIO (0.9-2.4); AST(SGOT) 146 U/L (15-37); Alanine Aminotransfer ALT/SGPT 151 U/L (13-56); Albumin, Serum 2.6 g/dL (3.2-5.0); Alkaline Phosphatase 155 U/L (45-117); Anion Gap 8 (5-15); BUN 76 mg/dL (7-18); BUN/Creat Ratio 28.1 RATIO (10-20); Calcium,Total 8.6 mg/dL (8.5-10.1); Chloride 102 mmol/L (98-107); EST Glomerular Filtration Rate 18 mL/min (>60); Est Glom Filt Rate - Afr Amer 22 mL/min (>60); Estimated Creatinine Clearance 12.62 ml/min; Globulin 4.4 g/dL (2.2-4.2); Glucose 104 mg/dL (74-106); Potassium 4.6 mmol/L (3.5-5.1); Sodium Level 137 mmol/L (136-145)
--- NOTE | 2019-05-29 07:32 | CASEMGMT ---
Patient has a Healthcare Power of Cinder Block Maker and a Healthcare Living Will on file at [facility]. Arin BARR MSW
[2019-05-29] MEDS: Isosorbide Mononitrate 60 MG Tablet PO (09:49)
[2019-05-29] MEDS: Furosemide 40 MG/4 ML Vial IV ×2 (09:50→18:16)
[2019-05-29] MEDS: Heparin Injection (Vial) 5,000 UNIT/ML VIAL 5000 UNIT SC ×2 (09:50→22:31)
[2019-05-29] MEDS: Ensure Clear 120 ML Liquid PO ×2 (09:50→13:52)
[2019-05-29] MEDS: Ranolazine 500 MG Tablet 1000 MG PO ×2 (09:50→22:18)
[2019-05-29] MEDS: Timolol 0.5% 5ML OPTH.BTL 1 DRP EACH EYE ×2 (09:50→22:18)
[2019-05-29] MEDS: Cyanocobalamin 500 MCG Tablet 1000 MCG PO (09:50)
[2019-05-29] MEDS: Metoprolol Tartrate 50 MG Tablet 75 MG PO ×2 (09:50→22:18)
[2019-05-29] MEDS: BRIMONIDINE 0.2% 5ML BOTTLE 1 DRP EACH EYE ×2 (09:51→22:17)
[2019-05-29] MEDS: LIFITEGRAST 1 EACH DROPERETTE OP ×2 (09:51→22:35)
[2019-05-29] MEDS: Aspirin E.C. 81 MG Tablet PO (09:52)
--- NOTE | 2019-05-29 12:58 | PCM.PROGNOTE ---
<OrlandoCarol - Last Filed: 05/29/19 13:12> Patient Problems: Active and Suspected Problems (Last Reviewed 05/23/19 @ 11:50 by Liudmila Byrd) SYLVIA (acute kidney injury) (Acute) CHF (congestive heart failure) (Acute) Subjective: Patient seen and examined. Overall feels improved. Denies shortness of breath. Continues to have generalized weakness. Agreeable to TCU pending acceptance. - Physical Exam Vitals/I&O's: Vital Signs Temp Pulse Resp BP Pulse Ox 97.7 F L 65 18 151/65 H 96 05/29/19 09:25 05/29/19 09:50 05/29/19 09:25 05/29/19 09:25 05/29/19 09:25 Oxygen Delivery Method Room Air Weight: 105 lb 6.095 oz Body Mass Index (BMI) 17.9 Intake and Output for Last 24 Hours 05/27/19 05/28/19 05/29/19 23:59 23:59 23:59 Intake Total 240 / 240 740 / 740 240 / 240 Output Total 500 / 500 Balance -260 / -260 740 / 740 240 / 240 General: Alert, Oriented x3, Cooperative HEENT: Atraumatic, PERRLA, EOMI, Normocephalic Neck: Supple, No JVD, Negative Carotid Bruits Lungs: Clear to auscultation, Normal air movement Cardiovascular: Regular rate, No murmurs Abdomen: Bowel Sounds Present, Soft, Non Tender, Non-Distended Extremities: No clubbing, No cyanosis, No edema, Capillary Refill Less than 3 Seconds Skin: No rashes, No breakdown Musculoskeletal: No Tenderness to Palpation of Joints or Extremities Neurological: Cranial nerves II-XII grossly intact, Neuro grossly intact Psych/Mental Status: Normal Affect, Appropriate Laboratory Results 05/28/19 14:25: PT 18.3 H, INR 1.5 05/29/19 04:35: Sodium 137, Potassium 4.6, Chloride 102, Carbon Dioxide 27.0, Anion Gap 8, BUN 76 H, Creatinine 2.70 H, Estim Creat Clear Calc 12.62, Est GFR (MDRD) Af Amer 22 L, Est GFR (MDRD) Non-Af 18 L, BUN/Creatinine Ratio 28.1 H, Glucose 104, Calcium 8.6, Total Bilirubin 0.70, AST 146 H, ALT 151 H, Alkaline Phosphatase 155 H, Total Protein 7.0, Albumin 2.6 L, Globulin 4.4 H, Albumin/Globulin Ratio 0.6 L Current Medications Acetaminophen (Tylenol) 650 mg PO Q6H PRN PRN PRN Reason: Pain Score 1-10/Temp > 100.7 F Last Admin: 05/29/19 00:55 Dose: 650 mg Documented by: Al Hydroxide/Mg Hydroxide (Mylanta Ii) 30 ml PO Q6H PRN PRN PRN Reason: Gastric Burning Albuterol Sulfate (Ventolin Aerosols) 2.5 mg INHALATION Q2H PRN PRN PRN Reason: SOB/Wheezing Artificial Tears (Tears Naturale, Artificial Tears) 1 - 2 drop EACH EYE Q2H PRN PRN PRN Reason: DRY EYES Last Admin: 05/28/19 15:17 Dose: 1 drop Documented by: Aspirin (Ecotrin) 81 mg PO DAILY@0800 [facility] Last Admin: 05/29/19 09:52 Dose: 81 mg Documented by: Atorvastatin Calcium (Lipitor) 20 mg PO QHS [facility] Last Admin: 05/28/19 21:30 Dose: 20 mg Documented by: Brimonidine Tartrate (Brimonidine 0.2% 5ml Bottle) 1 drop EACH EYE BID [facility] Last Admin: 05/29/19 09:51 Dose: 1 drop Documented by: Cyanocobalamin (Vitamin B12) 1,000 mcg PO DAILY [facility] Last Admin: 05/29/19 09:50 Dose: 1,000 mcg Documented by: Fluticasone Propionate (Flonase Nasal Varney) 1 spray NASAL DAILY PRN PRN PRN Reason: ALLERGIES Furosemide (Lasix) 40 mg IV BIDLX [facility] Last Admin: 05/29/19 09:50 Dose: 40 mg Documented by: Glucagon () 1 mg IM .X1 PRN PRN Reason: Hypoglycemia Guaifenesin (Robitussin) 20 ml PO Q4H PRN PRN PRN Reason: COUGH Heparin Sodium (Porcine) (Heparin Na) 5,000 unit SC Q12 [facility] Last Admin: 05/29/19 09:50 Dose: 5,000 unit Documented by: Hydralazine HCl (Apresoline Iv) 10 mg IV Q4H PRN PRN PRN Reason: SBP > 160 Dextrose (Dextrose 10%-Water) 250 mls @ 999 mls/hr IV .Q16M PRN; Protocol PRN Reason: HYPOGLYCEMIA Sodium Chloride () 250 mls @ 15 mls/hr IV .[id number] PRN PRN Reason: Saline Flush Sodium Chloride () 250 mls @ 15 mls/hr IV .[id number] PRN PRN Reason: Additional IVPB Infusion Isosorbide Mononitrate (Imdur) 60 mg PO DAILY [facility] Last Admin: 05/29/19 09:49 Dose: 60 mg Documented by: Latanoprost (Xalatan Opthalmic) 1 drop EACH EYE QHS [facility] Last Admin: 05/28/19 21:31 Dose: 1 drop Documented by: Magnesium Hydroxide (Milk Of Magnesia) 30 ml PO DAILY PRN PRN PRN Reason: Constipation Melatonin (Melatonin) 3 mg PO QHS PRN PRN PRN Reason: INSOMNIA Last Admin: 05/27/19 22:22 Dose: 3 mg Documented by: Metoprolol Tartrate (Lopressor (Beta Brandyn)) 75 mg PO BID [facility] Last Admin: 05/29/19 09:50 Dose: 75 mg Documented by: Nitroglycerin (Nitrostat) 0.4 mg SUBLINGUAL Q5M PRN PRN Reason: CARDIAC/CHEST PAIN Nutritional Formula (Lactose Free) (Ensure Clear) 120 ml PO 4X/DAY [facility] Last Admin: 05/29/19 09:50 Dose: 120 ml Documented by: Ondansetron HCl (Zofran) 4 mg IV Q8H PRN PRN PRN Reason: NAUSEA/VOMITING Potassium Chloride (K-Dur) 10 meq PO QHS [facility] Last Admin: 05/28/19 21:29 Dose: 10 meq Documented by: Psyllium Hydrophilic Mucilloid (Metamucil) 1 packet PO DAILY PRN PRN PRN Reason: Constipation Ranolazine (Ranexa) 1,000 mg PO BID [facility] Last Admin: 05/29/19 09:50 Dose: 1,000 mg Documented by: Senna/Docusate Sodium (Senokot-S, Rocio-Colace) 2 tablet PO BID PRN PRN PRN Reason: Constipation Sodium Chloride () 10 - 40 ml IV UD PRN PRN Reason: SALINE FLUSH Last Admin: 05/29/19 09:51 Dose: 20 ml Documented by: Throat Lozenges (Cepacol Sore Throat Lozenge) 1 lozenge MUCOUS MEM Q2H PRN PRN PRN Reason: SORE THROAT Timolol Maleate (Timoptic) 1 drop EACH EYE BID [facility] Last Admin: 05/29/19 09:50 Dose: 1 drop Documented by: Medical Necessity - Tobacco Use Smoking Status: Never smoker Tobacco Use: Non-smoker Assessment/Plan All Active Problems (Last Reviewed 05/23/19 @ 11:50 by Liudmila Byrd) SYLVIA (acute kidney injury) (Acute) CHF (congestive heart failure) (Acute) Dyspnea (Acute) History of coronary artery stent placement (Resolved 05/21/09) Acute on chronic systolic (congestive) heart failure (Acute) ARF (acute renal failure) (Resolved) Fracture of femoral neck, left (Resolved) Hypertensive emergency (Resolved) Injury of left shoulder and upper arm (Resolved) Pyelonephritis, acute (Resolved) Scalp laceration (Resolved) Chronic diastolic (congestive) heart failure (Ruled-out) 1. Acute on chronic systolic and diastolic CHF-echocardiogram 04/29/2019 demonstrated EF 20%, stage I diastolic dysfunction, moderate mitral valve insufficiency, mild aortic valve insufficiency, pulmonary artery systolic pressure 36 mmHg. Continue IV Lasix with plans to transition to oral tomorrow. Strict I&O. Daily weight. Jose wraps bilateral lower extremities. 2. SYLVIA on CKD stage IV-improving, trend BMP. Nephrology consulted. Renal ultrasound demonstrated bilateral renal cortical atrophy indicative of medical renal disease. 3. Abnormal troponin-suspect demand ischemia as a result of #1. Enzymes did not trend. Denies chest pain. 4. CAD with history of PCI-continue statin, isosorbide, metoprolol, Ranexa. Follows with Dr. Hernandez. 5. Hypertension-stable, continue isosorbide, metoprolol regimen. 6. Hyperlipidemia-continue statin. 7. Glaucoma-continue home ophthalmic regimen. 8. Rheumatoid arthritis/Sjogren's/peripheral neuropathy-no longer on regimen, stable. 9. Chronic macrocytic anemia-stable, trend CBC. 10. Abnormal LFTs-unclear etiology. Abdominal ultrasound shows no acute process. AST/ALT trending down. 11. Debility with recurrent falls- PT/OT. SNF pending acceptance. 12. PAD with diminished peripheral pulses- Dr. Deleon consulted. Vascular studies pending. DVT prophylaxis-Heparin subcu This patient was seen by MICHELLE He under the supervision of Dr. Wiseman. <Sanjay iWseman - Last Filed: 05/29/19 14:16> - Physical Exam Vitals/I&O's: Vital Signs Temp Pulse Resp BP Pulse Ox 97.7 F L 65 18 151/65 H 96 05/29/19 09:25 05/29/19 09:50 05/29/19 09:25 05/29/19 09:25 05/29/19 09:25 Oxygen Delivery Method Room Air Weight: 105 lb 6.095 oz Body Mass Index (BMI) 17.9 Intake and Output for Last 24 Hours 05/27/19 05/28/19 05/29/19 23:59 23:59 23:59 Intake Total 240 / 240 740 / 740 240 / 240 Output Total 500 / 500 Balance -260 / -260 740 / 740 240 / 240 Laboratory Results 05/28/19 14:25: PT 18.3 H, INR 1.5 05/29/19 04:35: Sodium 137, Potassium 4.6, Chloride 102, Carbon Dioxide 27.0, Anion Gap 8, BUN 76 H, Creatinine 2.70 H, Estim Creat Clear Calc 12.62, Est GFR (MDRD) Af Amer 22 L, Est GFR (MDRD) Non-Af 18 L, BUN/Creatinine Ratio 28.1 H, Glucose 104, Calcium 8.6, Total Bilirubin 0.70, AST 146 H, ALT 151 H, Alkaline Phosphatase 155 H, Total Protein 7.0, Albumin 2.6 L, Globulin 4.4 H, Albumin/Globulin Ratio 0.6 L Current Medications Acetaminophen (Tylenol) 650 mg PO Q6H PRN PRN PRN Reason: Pain Score 1-10/Temp > 100.7 F Last Admin: 05/29/19 00:55 Dose: 650 mg Documented by: Al Hydroxide/Mg Hydroxide (Mylanta Ii) 30 ml PO Q6H PRN PRN PRN Reason: Gastric Burning Albuterol Sulfate (Ventolin Aerosols) 2.5 mg INHALATION Q2H PRN PRN PRN Reason: SOB/Wheezing Artificial Tears (Tears Naturale, Artificial Tears) 1 - 2 drop EACH EYE Q2H PRN PRN PRN Reason: DRY EYES Last Admin: 05/28/19 15:17 Dose: 1 drop Documented by: Aspirin (Ecotrin) 81 mg PO DAILY@0800 [facility] Last Admin: 05/29/19 09:52 Dose: 81 mg Documented by: Atorvastatin Calcium (Lipitor) 20 mg PO QHS [facility] Last Admin: 05/28/19 21:30 Dose: 20 mg Documented by: Brimonidine Tartrate (Brimonidine 0.2% 5ml Bottle) 1 drop EACH EYE BID [facility] Last Admin: 05/29/19 09:51 Dose: 1 drop Documented by: Cyanocobalamin (Vitamin B12) 1,000 mcg PO DAILY [facility] Last Admin: 05/29/19 09:50 Dose: 1,000 mcg Documented by: Fluticasone Propionate (Flonase Nasal Varney) 1 spray NASAL DAILY PRN PRN PRN Reason: ALLERGIES Furosemide (Lasix) 40 mg IV BIDLX [facility] Last Admin: 05/29/19 09:50 Dose: 40 mg Documented by: Glucagon () 1 mg IM .X1 PRN PRN Reason: Hypoglycemia Guaifenesin (Robitussin) 20 ml PO Q4H PRN PRN PRN Reason: COUGH Heparin Sodium (Porcine) (Heparin Na) 5,000 unit SC Q12 [facility] Last Admin: 05/29/19 09:50 Dose: 5,000 unit Documented by: Hydralazine HCl (Apresoline Iv) 10 mg IV Q4H PRN PRN PRN Reason: SBP > 160 Dextrose (Dextrose 10%-Water) 250 mls @ 999 mls/hr IV .Q16M PRN; Protocol PRN Reason: HYPOGLYCEMIA Sodium Chloride () 250 mls @ 15 mls/hr IV .[id number] PRN PRN Reason: Saline Flush Sodium Chloride () 250 mls @ 15 mls/hr IV .[id number] PRN PRN Reason: Additional IVPB Infusion Isosorbide Mononitrate (Imdur) 60 mg PO DAILY [facility] Last Admin: 05/29/19 09:49 Dose: 60 mg Documented by: Latanoprost (Xalatan Opthalmic) 1 drop EACH EYE QHS [facility] Last Admin: 05/28/19 21:31 Dose: 1 drop Documented by: Magnesium Hydroxide (Milk Of Magnesia) 30 ml PO DAILY PRN PRN PRN Reason: Constipation Melatonin (Melatonin) 3 mg PO QHS PRN PRN PRN Reason: INSOMNIA Last Admin: 05/27/19 22:22 Dose: 3 mg Documented by: Metoprolol Tartrate (Lopressor (Beta Brandyn)) 75 mg PO BID [facility] Last Admin: 05/29/19 09:50 Dose: 75 mg Documented by: Nitroglycerin (Nitrostat) 0.4 mg SUBLINGUAL Q5M PRN PRN Reason: CARDIAC/CHEST PAIN Nutritional Formula (Lactose Free) (Ensure Clear) 120 ml PO 4X/DAY [facility] Last Admin: 05/29/19 13:52 Dose: 120 ml Documented by: Ondansetron HCl (Zofran) 4 mg IV Q8H PRN PRN PRN Reason: NAUSEA/VOMITING Potassium Chloride (K-Dur) 10 meq PO QHS [facility] Last Admin: 05/28/19 21:29 Dose: 10 meq Documented by: Psyllium Hydrophilic Mucilloid (Metamucil) 1 packet PO DAILY PRN PRN PRN Reason: Constipation Ranolazine (Ranexa) 1,000 mg PO BID [facility] Last Admin: 05/29/19 09:50 Dose: 1,000 mg Documented by: Senna/Docusate Sodium (Senokot-S, Rocio-Colace) 2 tablet PO BID PRN PRN PRN Reason: Constipation Sodium Chloride () 10 - 40 ml IV UD PRN PRN Reason: SALINE FLUSH Last Admin: 05/29/19 09:51 Dose: 20 ml Documented by: Throat Lozenges (Cepacol Sore Throat Lozenge) 1 lozenge MUCOUS MEM Q2H PRN PRN PRN Reason: SORE THROAT Timolol Maleate (Timoptic) 1 drop EACH EYE BID [facility] Last Admin: 05/29/19 09:50 Dose: 1 drop Documented by: Assessment/Plan This patient was seen in conjunction with [employer]. I have independently interviewed and examined the patient and reviewed pertinent history, examination findings, laboratory and plan of management. I have reviewed the note and agree with the documented findings with the few additional points. In brief, patient is 78-year-old female was admitted with lower extremity edema and dyspnea on exertion and recurrent fall consistent with acute on chronic systolic and diastolic heart failure. Patient was admitted in April for similar diagnosis. Echo at that time shows EF 20%, stage I diastolic dysfunction, 2+ MR, 1+ TR, RVSP 36 mmHg. Chest x-ray independently reviewed and shows small left pleural effusion. Patient also has acute kidney injury on CKD stage IV. Renal ultrasound 7 mm nonobstructing right right renal stone. Bilateral renal cortical atrophy indicates medical renal disease Patient also has elevated transaminases. Previous LFT on May 01, 2019 showed alkaline phosphatase 143 but normal transaminases. ALT 152, AST 169, alkaline phosphatase 152. Normal total bilirubin. Albumin 2.5. Patient does not have chronic alcohol use or substance use history and therefore consistent with liver congestion disease. On diuretic. Right upper quadrant sonogram was done and reported 3 mm gallbladder polyp. Liver shows normal echogenicity no mass identified. CBD 3 mm. Multiple recurrent fall: PT, OT and freight trucker following the patient. MOOSE: Right side 1.19, left 0.9, DBI: Right 1.16, left 0.9. Right-sided suggestive of possible chronic arterial sclerosis/calcification. Vascular surgeon was consulted but has not seen the patient. Need outpatient follow-up. Total time of the visit including total time spent in counseling or coordination of care, (more than 50% of the total time, spent in obtaining medical information from nurses and other ancillary care providers), discussion with son-in-law and daughter, review of labs and imaging is 30 minutes I have discussed my assessment with Carol COUCH and orders have been reviewed. Code Visit Inpatient E&M: 16479 Subs Hosp L2
--- NOTE | 2019-05-29 14:46 | PCM.CONS.R ---
Consultation - Renal 05/29/19 PCP/ Referring MD: Requesting physician: [] Primary care physician: Demarco Lopez MD Reason for Consultation:: renal failure - History of Present Illness History of Present Illness: The patient is a 78 year old F with past medical history of CHF hypertension who presented with a chief complaint of gradually worsening lower extremity edema weight gain orthopnea increasing falls over the last few days prior to admission associated with confusion. The patient was just recently discharged on May 05 following CHF exacerbation 40 mg p.o. daily of Lasix. She also had been a fracture of her pelvis. She was given Lasix IV in the ER and then Lasix 40 mg IV twice daily. Today she denies any shortness of breath. Her serum creatinine was in the low 2 range on previous admission and 2.2-2.6 last year. States her lower extremity edema has improved denies dysuria hematuria or nausea vomiting diarrhea abdominal pain. She denies any other complaints currently. Denies using NSAIDs at home. Has no other complaints. - Allergies Allergies: Allergies adalimumab [From Humira] Allergy (Verified 05/27/19 14:49) Rash ciprofloxacin HCl [From Cipro] Allergy (Verified 05/27/19 14:49) Unknown doxazosin Allergy (Verified 05/27/19 14:49) Other hydroxyzine [From Vistaril] Allergy (Verified 05/27/19 14:49) Other latex Allergy (Verified 05/27/19 14:49) Rash levofloxacin [From Levaquin] Allergy (Verified 05/27/19 14:49) Unknown lisinopril Allergy (Verified 05/27/19 14:49) Other COUGH Methotrexate Analogues Allergy (Verified 05/27/19 14:49) Hives naproxen Allergy (Verified 05/27/19 14:49) Unknown potassium clavulanate [From Augmentin] Allergy (Verified 05/27/19 14:49) Unknown Sulfa (Sulfonamide Antibiotics) Allergy (Verified 05/27/19 14:49) Unknown amlodipine Adverse Reaction (Severe, Verified 05/27/19 14:49) edema haloperidol lactate [From Haldol] Adverse Reaction (Unknown, Verified 05/27/19 14:49) agitation amoxicillin trihydrate [From Augmentin] Adverse Reaction (Verified 05/27/19 14:49) Upset Stomach hydromorphone HCl [From Dilaudid] Adverse Reaction (Verified 05/27/19 14:49) Other HALLUCINATIONS hydroxychloroquine sulfate [From Plaquenil] Adverse Reaction (Verified 05/27/19 14:49) Other VISION ISSUES - Current Medications Current Medications: Current Medications Acetaminophen (Tylenol) 650 mg PO Q6H PRN PRN PRN Reason: Pain Score 1-10/Temp > 100.7 F Last Admin: 05/29/19 00:55 Dose: 650 mg Documented by: Al Hydroxide/Mg Hydroxide (Mylanta Ii) 30 ml PO Q6H PRN PRN PRN Reason: Gastric Burning Albuterol Sulfate (Ventolin Aerosols) 2.5 mg INHALATION Q2H PRN PRN PRN Reason: SOB/Wheezing Artificial Tears (Tears Naturale, Artificial Tears) 1 - 2 drop EACH EYE Q2H PRN PRN PRN Reason: DRY EYES Last Admin: 05/28/19 15:17 Dose: 1 drop Documented by: Aspirin (Ecotrin) 81 mg PO DAILY@0800 [facility] Last Admin: 05/29/19 09:52 Dose: 81 mg Documented by: Atorvastatin Calcium (Lipitor) 20 mg PO QHS [facility] Last Admin: 05/28/19 21:30 Dose: 20 mg Documented by: Brimonidine Tartrate (Brimonidine 0.2% 5ml Bottle) 1 drop EACH EYE BID [facility] Last Admin: 05/29/19 09:51 Dose: 1 drop Documented by: Cyanocobalamin (Vitamin B12) 1,000 mcg PO DAILY [facility] Last Admin: 05/29/19 09:50 Dose: 1,000 mcg Documented by: Fluticasone Propionate (Flonase Nasal Gaston) 1 spray NASAL DAILY PRN PRN PRN Reason: ALLERGIES Furosemide (Lasix) 40 mg IV BIDLX [facility] Last Admin: 05/29/19 09:50 Dose: 40 mg Documented by: Glucagon () 1 mg IM .X1 PRN PRN Reason: Hypoglycemia Guaifenesin (Robitussin) 20 ml PO Q4H PRN PRN PRN Reason: COUGH Heparin Sodium (Porcine) (Heparin Na) 5,000 unit SC Q12 [facility] Last Admin: 05/29/19 09:50 Dose: 5,000 unit Documented by: Hydralazine HCl (Apresoline Iv) 10 mg IV Q4H PRN PRN PRN Reason: SBP > 160 Dextrose (Dextrose 10%-Water) 250 mls @ 999 mls/hr IV .Q16M PRN; Protocol PRN Reason: HYPOGLYCEMIA Sodium Chloride () 250 mls @ 15 mls/hr IV .[id number] PRN PRN Reason: Saline Flush Sodium Chloride () 250 mls @ 15 mls/hr IV .[id number] PRN PRN Reason: Additional IVPB Infusion Isosorbide Mononitrate (Imdur) 60 mg PO DAILY [facility] Last Admin: 05/29/19 09:49 Dose: 60 mg Documented by: Latanoprost (Xalatan Opthalmic) 1 drop EACH EYE QHS [facility] Last Admin: 05/28/19 21:31 Dose: 1 drop Documented by: Magnesium Hydroxide (Milk Of Magnesia) 30 ml PO DAILY PRN PRN PRN Reason: Constipation Melatonin (Melatonin) 3 mg PO QHS PRN PRN PRN Reason: INSOMNIA Last Admin: 05/27/19 22:22 Dose: 3 mg Documented by: Metoprolol Tartrate (Lopressor (Beta Brandyn)) 75 mg PO BID [facility] Last Admin: 05/29/19 09:50 Dose: 75 mg Documented by: Nitroglycerin (Nitrostat) 0.4 mg SUBLINGUAL Q5M PRN PRN Reason: CARDIAC/CHEST PAIN Nutritional Formula (Lactose Free) (Ensure Clear) 120 ml PO 4X/DAY [facility] Last Admin: 05/29/19 13:52 Dose: 120 ml Documented by: Ondansetron HCl (Zofran) 4 mg IV Q8H PRN PRN PRN Reason: NAUSEA/VOMITING Potassium Chloride (K-Dur) 10 meq PO QHS [facility] Last Admin: 05/28/19 21:29 Dose: 10 meq Documented by: Psyllium Hydrophilic Mucilloid (Metamucil) 1 packet PO DAILY PRN PRN PRN Reason: Constipation Ranolazine (Ranexa) 1,000 mg PO BID [facility] Last Admin: 05/29/19 09:50 Dose: 1,000 mg Documented by: Senna/Docusate Sodium (Senokot-S, Rocio-Colace) 2 tablet PO BID PRN PRN PRN Reason: Constipation Sodium Chloride () 10 - 40 ml IV UD PRN PRN Reason: SALINE FLUSH Last Admin: 02/13/20 09:51 Dose: 20 ml Documented by: Throat Lozenges (Cepacol Sore Throat Lozenge) 1 lozenge MUCOUS MEM Q2H PRN PRN PRN Reason: SORE THROAT Timolol Maleate (Timoptic) 1 drop EACH EYE BID JOSLYN Last Admin: 05/29/19 09:50 Dose: 1 drop Documented by: - Past Medical History Past Medical History (Chronic Problems): Chronic Problems (Last Reviewed 05/23/19 @ 11:50 by Liudmila Byrd) Lower extremity edema (Chronic) Atherosclerotic heart disease of [place] coronary artery without angina pectoris (Chronic) History of non-ST elevation myocardial infarction (NSTEMI) (Chronic 04/2019) 05/2018, 03/2019, 04/2019 Essential (primary) hypertension (Chronic) Hyperlipemia (Chronic) 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 - Social History Smoking Status: Never smoker Alcohol: None Drugs: None - Family History Paternal Family History: Family History (Last Reviewed 05/23/19 @ 11:50 by Liudmila Byrd) Father No problems noted. History Items: Heart Disease Maternal Family History: Family History (Last Reviewed 05/23/19 @ 11:50 by Liudmila Byrd) Father No problems noted. History Items: Cancer - Mother with history of breast cancer. Review of Systems Eyes: Reports: - - As noted above the review of systems is essentially negative. She complains of some pain in legs if she walks a lot. Patient Problems: Active and Suspected Problems (Last Reviewed 05/23/19 @ 11:50 by Liudmila Byrd) SYLVIA (acute kidney injury) (Acute) CHF (congestive heart failure) (Acute) - Physical Exam Vitals/I&O's: Vital Signs Temp Pulse Resp BP Pulse Ox 97.7 F L 65 18 151/65 H 96 05/29/19 09:25 05/29/19 09:50 05/29/19 09:25 05/29/19 09:25 05/29/19 09:25 Oxygen Delivery Method Room Air Weight: 47.8 kg Body Mass Index (BMI) 17.9 Intake and Output for Last 24 Hours 05/27/19 05/28/19 05/29/19 23:59 23:59 23:59 Intake Total 240 / 240 740 / 740 240 / 240 Output Total 500 / 500 Balance -260 / -260 740 / 740 240 / 240 General: Alert, Oriented x3, Cooperative HEENT: Atraumatic, PERRLA, EOMI, Normocephalic Neck: Supple, No JVD, Negative Carotid Bruits Lungs: Clear to auscultation, Normal air movement Cardiovascular: Regular rate, No murmurs Abdomen: Bowel Sounds Present, Soft, Non Tender Extremities: No edema, Capillary Refill Less than 3 Seconds, Edema Skin: No rashes, No breakdown Musculoskeletal: No Tenderness to Palpation of Joints or Extremities Neurological: Cranial nerves II-XII grossly intact Psych/Mental Status: Normal Affect, Appropriate Laboratory Results 05/28/19 14:25: PT 18.3 H, INR 1.5 05/29/19 04:35: Sodium 137, Potassium 4.6, Chloride 102, Carbon Dioxide 27.0, Anion Gap 8, BUN 76 H, Creatinine 2.70 H, Estim Creat Clear Calc 12.62, Est GFR (MDRD) Af Amer 22 L, Est GFR (MDRD) Non-Af 18 L, BUN/Creatinine Ratio 28.1 H, Glucose 104, Calcium 8.6, Total Bilirubin 0.70, AST 146 H, ALT 151 H, Alkaline Phosphatase 155 H, Total Protein 7.0, Albumin 2.6 L, Globulin 4.4 H, Albumin/Globulin Ratio 0.6 L Current Medications Acetaminophen (Tylenol) 650 mg PO Q6H PRN PRN PRN Reason: Pain Score 1-10/Temp > 100.7 F Last Admin: 05/29/19 00:55 Dose: 650 mg Documented by: Al Hydroxide/Mg Hydroxide (Mylanta Ii) 30 ml PO Q6H PRN PRN PRN Reason: Gastric Burning Albuterol Sulfate (Ventolin Aerosols) 2.5 mg INHALATION Q2H PRN PRN PRN Reason: SOB/Wheezing Artificial Tears (Tears Naturale, Artificial Tears) 1 - 2 drop EACH EYE Q2H PRN PRN PRN Reason: DRY EYES Last Admin: 05/28/19 15:17 Dose: 1 drop Documented by: Aspirin (Ecotrin) 81 mg PO DAILY@0800 [facility] Last Admin: 05/29/19 09:52 Dose: 81 mg Documented by: Atorvastatin Calcium (Lipitor) 20 mg PO QHS [facility] Last Admin: 05/28/19 21:30 Dose: 20 mg Documented by: Brimonidine Tartrate (Brimonidine 0.2% 5ml Bottle) 1 drop EACH EYE BID [facility] Last Admin: 05/29/19 09:51 Dose: 1 drop Documented by: Cyanocobalamin (Vitamin B12) 1,000 mcg PO DAILY [facility] Last Admin: 05/29/19 09:50 Dose: 1,000 mcg Documented by: Fluticasone Propionate (Flonase Nasal Gaston) 1 spray NASAL DAILY PRN PRN PRN Reason: ALLERGIES Furosemide (Lasix) 40 mg IV BIDLX [facility] Last Admin: 05/29/19 09:50 Dose: 40 mg Documented by: Glucagon () 1 mg IM .X1 PRN PRN Reason: Hypoglycemia Guaifenesin (Robitussin) 20 ml PO Q4H PRN PRN PRN Reason: COUGH Heparin Sodium (Porcine) (Heparin Na) 5,000 unit SC Q12 [facility] Last Admin: 05/29/19 09:50 Dose: 5,000 unit Documented by: Hydralazine HCl (Apresoline Iv) 10 mg IV Q4H PRN PRN PRN Reason: SBP > 160 Dextrose (Dextrose 10%-Water) 250 mls @ 999 mls/hr IV .Q16M PRN; Protocol PRN Reason: HYPOGLYCEMIA Sodium Chloride () 250 mls @ 15 mls/hr IV .[id number] PRN PRN Reason: Saline Flush Sodium Chloride () 250 mls @ 15 mls/hr IV .[id number] PRN PRN Reason: Additional IVPB Infusion Isosorbide Mononitrate (Imdur) 60 mg PO DAILY [facility] Last Admin: 05/29/19 09:49 Dose: 60 mg Documented by: Latanoprost (Xalatan Opthalmic) 1 drop EACH EYE QHS [facility] Last Admin: 05/28/19 21:31 Dose: 1 drop Documented by: Magnesium Hydroxide (Milk Of Magnesia) 30 ml PO DAILY PRN PRN PRN Reason: Constipation Melatonin (Melatonin) 3 mg PO QHS PRN PRN PRN Reason: INSOMNIA Last Admin: 05/27/19 22:22 Dose: 3 mg Documented by: Metoprolol Tartrate (Lopressor (Beta Brandyn)) 75 mg PO BID [facility] Last Admin: 05/29/19 09:50 Dose: 75 mg Documented by: Nitroglycerin (Nitrostat) 0.4 mg SUBLINGUAL Q5M PRN PRN Reason: CARDIAC/CHEST PAIN Nutritional Formula (Lactose Free) (Ensure Clear) 120 ml PO 4X/DAY [facility] Last Admin: 05/29/19 13:52 Dose: 120 ml Documented by: Ondansetron HCl (Zofran) 4 mg IV Q8H PRN PRN PRN Reason: NAUSEA/VOMITING Potassium Chloride (K-Dur) 10 meq PO QHS [facility] Last Admin: 05/28/19 21:29 Dose: 10 meq Documented by: Psyllium Hydrophilic Mucilloid (Metamucil) 1 packet PO DAILY PRN PRN PRN Reason: Constipation Ranolazine (Ranexa) 1,000 mg PO BID [facility] Last Admin: 05/29/19 09:50 Dose: 1,000 mg Documented by: Senna/Docusate Sodium (Senokot-S, Rocio-Colace) 2 tablet PO BID PRN PRN PRN Reason: Constipation Sodium Chloride () 10 - 40 ml IV UD PRN PRN Reason: SALINE FLUSH Last Admin: 05/29/19 09:51 Dose: 20 ml Documented by: Throat Lozenges (Cepacol Sore Throat Lozenge) 1 lozenge MUCOUS MEM Q2H PRN PRN PRN Reason: SORE THROAT Timolol Maleate (Timoptic) 1 drop EACH EYE BID [facility] Last Admin: 05/29/19 09:50 Dose: 1 drop Documented by: Assessment/Plan All Active Problems (Last Reviewed 05/23/19 @ 11:50 by Liudmila Byrd) SYLVIA (acute kidney injury) (Acute) CHF (congestive heart failure) (Acute) Dyspnea (Acute) History of coronary artery stent placement (Resolved 05/21/09) Acute on chronic systolic (congestive) heart failure (Acute) ARF (acute renal failure) (Resolved) Fracture of femoral neck, left (Resolved) Hypertensive emergency (Resolved) Injury of left shoulder and upper arm (Resolved) Pyelonephritis, acute (Resolved) Scalp laceration (Resolved) Chronic diastolic (congestive) heart failure (Ruled-out) SYLVIA CRS CKD 4 creatinine 2-2.6 Lower extremity edema Renal cysts Nephrolithiasis asymptomatic Heart failure Falls rec to change to p.o. Lasix 40 mg p.o. twice daily tomorrow bp all values controlled except one outlier continue current medications Avoid nephrotoxins overdiuresis. Reviewed renal ultrasound The above assessment and plan was discussed at length with the patient voiced understanding and agrees to proceed with the plan as outlined above. The patient and her son voiced understanding and stated that all their questions were answered to their satisfaction. Thank you very much for allowing me to participate in the care of this patient. Please do not hesitate to call if you have any questions or concerns.
[2019-05-29] MEDS: Fluticasone 0.05% 1 SPRAY NASAL.SRY NASAL (18:15)
[2019-05-29] MEDS: Atorvastatin Calcium 20 MG Tablet PO (22:17)
[2019-05-29] MEDS: Latanoprost 0.005% 1 Bottle 1 DRP EACH EYE (22:19)
--- NOTE | 2019-05-30 01:22 | NURSING ---
Physician asked this RN to verify with pt any drug use. Pt admits to marijuana a couple of times a month. Also admits that he was on meth last summer and that he snorted it. Denies any significant alcohol use. Denies pill use.
--- NOTE | 2019-05-30 01:57 | NURSING ---
Pt family members would like update from physician and have some questions as well for physician and case management. Daughter (Anaya) states she will be out of town 05/30. Son (Chavez Zheng) phone number on whiteboard in pt room.
[2019-05-30 03:03] VITALS: PULSE 60
[2019-05-30 04:30] VITALS: BP 133/77; PULSE 61; RESP 16; TEMP 36.7; O2SAT 100
--- NOTE | 2019-05-30 05:00 | NURSING ---
Pt upset at this time. States she was coughing/choking and nobody did anything about it. Pt upset that her nasal spray was taken away. This RN placed pt nasal spray with her belongings with her permission on 05/28/19. This RN offered pt ordered Flonase at this time; pt declines.
[2019-05-30 07:00] VITALS: PULSE 62
[2019-05-30 09:03] VITALS: BP 141/58; PULSE 65; RESP 16; TEMP 36.6; O2SAT 98
[2019-05-30] MEDS: BRIMONIDINE 0.2% 5ML BOTTLE 1 DRP EACH EYE (09:08)
[2019-05-30] MEDS: Timolol 0.5% 5ML OPTH.BTL 1 DRP EACH EYE (09:08)
[2019-05-30] MEDS: LIFITEGRAST 1 EACH DROPERETTE OP (09:09)
[2019-05-30 09:11] VITALS: PULSE 65
[2019-05-30] MEDS: Metoprolol Tartrate 50 MG Tablet 75 MG PO (09:11)
[2019-05-30] MEDS: Isosorbide Mononitrate 60 MG Tablet PO (09:12)
[2019-05-30] MEDS: Heparin Injection (Vial) 5,000 UNIT/ML VIAL 5000 UNIT SC (09:12)
[2019-05-30] MEDS: Aspirin E.C. 81 MG Tablet PO (09:12)
[2019-05-30] MEDS: Ranolazine 500 MG Tablet 1000 MG PO (09:12)
[2019-05-30] MEDS: Ensure Clear 120 ML Liquid PO (09:12)
[2019-05-30] MEDS: Cyanocobalamin 500 MCG Tablet 1000 MCG PO (09:12)
[2019-05-30] MEDS: Furosemide 40 MG Tablet PO (09:18)
[2019-05-30 09:46] LABS: Hematocrit 32.1 % (37-47); Hemoglobin 10.2 g/dL (12.0-15.0); Mean Corp Hgb Conc 31.8 g/dL (32-36); Mean Corpuscular Hgb 34.9 pg (27.0-32.0); Mean Corpuscular Volume 109.9 fL (81-99); Mean Platelet Vol. 12.3 fl (6.2-12.0); POSITIVE MORPHOLOGY YES; Platelet Count 207 K/mm3 (150-450); RBC Distribution Width CV 19.9 % (11.6-14.6); RBC Distribution Width SD 76.7 fl (35.1-43.9); Red Blood Count 2.92 M/mm3 (4.2-5.4); White Blood Count 13.3 K/mm3 (4.4-11.0)
[2019-05-30 10:00] LABS: Anion Gap 9 (5-15); BUN 73 mg/dL (7-18); Calcium,Total 8.5 mg/dL (8.5-10.1); Chloride 105 mmol/L (98-107); Creatinine, Serum 2.81 mg/dL (0.55-1.02); EST Glomerular Filtration Rate 17 mL/min (>60); Est Glom Filt Rate - Afr Amer 21 mL/min (>60); Estimated Creatinine Clearance 11.92 ml/min; Glucose 132 mg/dL (74-106); Potassium 4.7 mmol/L (3.5-5.1); Sodium Level 139 mmol/L (136-145)
[2019-05-30 10:05] LABS: Scan Indicated on CBC? Y/N YES- FLAGS NOTED
--- NOTE | 2019-05-30 11:48 | PCM.EXTCARCO ---
- Diet 05/27/19 20:15 Diet: Cardiac/Low Cholesterol Food consistency:: Mechanical soft/ground Liquid Consistency:: Regular/Thin No straws, distant supervision, crushed medications as possible - Routine Orders/Code Status Enema Type: Fleetz Enema Frequency: Daily PRN Suppository Type: Dulcolax 10mg Suppository Frequency: Daily PRN Routine Lab Work: - - cbc, bmp in 3 days then Q week Code Status: Full Code - Wound(s) BL Elbows Wound Type: Abrasion Right ascencio Wound Type: open from swelling per pt - Suggestions for Active Care Change Position every (hours): 2 Times a day to sit in chair: 3 - Therapies Physical Therapy: Eval and Treat Occupational Therapy: Eval and Treat Speech Therapy: Eval and Treat - Problem/Diagnosis (1) SYLVIA (acute kidney injury) Status: Acute Current Visit: Yes (2) Acute on chronic systolic (congestive) heart failure Status: Acute Current Visit: Yes (3) Essential (primary) hypertension Status: Chronic Current Visit: No (4) Hyperlipemia Status: Chronic Current Visit: No - Allergies/Procedures Done in Hospital Allergies/Adverse Reactions: Allergies adalimumab [From Humira] Allergy (Verified 05/27/19 14:49) Rash ciprofloxacin HCl [From Cipro] Allergy (Verified 05/27/19 14:49) Unknown doxazosin Allergy (Verified 05/27/19 14:49) Other hydroxyzine [From Vistaril] Allergy (Verified 05/27/19 14:49) Other latex Allergy (Verified 05/27/19 14:49) Rash levofloxacin [From Levaquin] Allergy (Verified 05/27/19 14:49) Unknown lisinopril Allergy (Verified 05/27/19 14:49) Other COUGH Methotrexate Analogues Allergy (Verified 05/27/19 14:49) Hives naproxen Allergy (Verified 05/27/19 14:49) Unknown potassium clavulanate [From Augmentin] Allergy (Verified 05/27/19 14:49) Unknown Sulfa (Sulfonamide Antibiotics) Allergy (Verified 05/27/19 14:49) Unknown amlodipine Adverse Reaction (Severe, Verified 05/27/19 14:49) edema haloperidol lactate [From Haldol] Adverse Reaction (Unknown, Verified 05/27/19 14:49) agitation amoxicillin trihydrate [From Augmentin] Adverse Reaction (Verified 05/27/19 14:49) Upset Stomach hydromorphone HCl [From Dilaudid] Adverse Reaction (Verified 05/27/19 14:49) Other HALLUCINATIONS hydroxychloroquine sulfate [From Plaquenil] Adverse Reaction (Verified 05/27/19 14:49) Other VISION ISSUES Procedures: None - Type of Care/Length of Stay Estimated LOS: Convalescent Care Less Than 30 days Type of Care Needed: Skilled Rehab Potential: Fair Prognosis: Fair - Additional Orders/Day of Discharge H&P will serve as current which was dated: 05/27/19 Day of Discharge: 05/30/19 - Dietary and Speech Recommendations Dietitian Recommendations/Changes: Rec continue Cardiac/Low Cholesterol diet w/ Ensure Enlive at medpass w/ fluid restriction as medically indicated. If pt continues w/ poor PO intake at meals rec liberalize diet to Regular, low Sodium. Will provide [employer] L&D and will fortify pt foods d/t pt poor PO intake. - Follow Up Care Primary Care Physician: Demarco Lopez MD [Primary Care Provider] - Please follow up with your Primary Care Physician in: 1 Week Please Follow Up With: Nahid Hernandez MD When: 1-2 Weeks Please Follow Up With: Zeferino Farrar MD - Nephrology When: 1 Week upon discharge from TCU consult on TCU if worsening BMP Please Follow Up With: Octaviano Macias DO When: Palliative referral made prior to DC to TCU
--- NOTE | 2019-05-30 12:22 | PHA.DC.MR ---
Pharmacy Service has performed discharge medication reconciliation for this patient. The patient's discharge medication list was reviewed for discrepancies and discrepancies were resolved. Home Medications Multivit-Min/FA/Lycopen/Lutein [Centrum Silver Tablet] 1 tab PO DAILY 04/01/15 Cholecalciferol (Vitamin D3) [Vitamin D3] 5,000 unit PO DAILY 06/06/18 Cyanocobalamin (Vitamin B-12) [B-12] 1,000 mcg PO DAILY 06/06/18 Vit C/E/Zn/Coppr/Lutein/Zeaxan [Preservision Areds 2 Softgel] 1 cap PO BID 06/06/18 atorvastatin 20 mg tablet 20 mg PO QHS 06/21/18 potassium chloride 10 mEq capsule,extended release 10 meq PO QHS cap 06/21/18 Brimonidine Tartrate/Timolol [Combigan Eye Drops] 1 drp EACH EYE BID 02/13/19 Latanoprost 1 drp EACH EYE QHS 02/13/19 isosorbide mononitrate 60 mg tablet,extended release 24 hr 60 mg PO DAILY tab 02/19/19 Metoprolol Tartrate [Lopressor (beta elena)] 75 mg PO BID 03/20/19 Ranolazine [Ranexa] 1,000 mg PO BID 03/20/19 Acetaminophen [Tylenol] 1,000 mg PO Q8H 04/28/19 Lifitegrast [Xiidra] 1 ea OP BID 04/29/19 fluticasone propionate 50 mcg/actuation nasal spray,suspension 1 spray INTRANASAL DAILY PRN PRN 05/23/19 Calcium Carb/Vitamin D [Caltrate-600 With Vit D Tab] 1 tab PO BIDCM 05/27/19 Furosemide [Lasix] 40 mg PO DAILY 05/27/19 Nitroglycerin [Nitrostat] 0.4 mg SUBLINGUAL Q5M PRN 05/27/19
--- NOTE | 2019-05-30 12:47 | PCM.PN.REN ---
Patient Problems: Active and Suspected Problems (Last Reviewed 05/23/19 @ 11:50 by Liudmila Byrd) SYLVIA (acute kidney injury) (Acute) CHF (congestive heart failure) (Acute) Subjective: no sob/cp - Physical Exam Vitals/I&O's: Vital Signs Temp Pulse Resp BP Pulse Ox 97.8 F 65 16 141/58 H 98 05/30/19 09:03 05/30/19 09:11 05/30/19 09:03 05/30/19 09:03 05/30/19 09:03 Oxygen Delivery Method Room Air Weight: 46.5 kg Body Mass Index (BMI) 17.9 Intake and Output for Last 24 Hours 05/28/19 05/29/19 05/30/19 23:59 23:59 23:59 Intake Total 740 / 740 540 / 540 40 / 40 Balance 740 / 740 540 / 540 40 / 40 General: Alert, Oriented x3 HEENT: Atraumatic, Normocephalic Oral: Moist Mucosa Neck: Supple Lungs: Clear to auscultation, Normal air movement Cardiovascular: Regular rate, Regular Rhythm, Normal S1, Normal S2 Abdomen: Bowel Sounds Present, Soft Extremities: No clubbing, No cyanosis, Edema Skin: No rashes Neurological: Neuro grossly intact Laboratory Results 05/30/19 09:35: WBC 13.3 H, RBC 2.92 L, Hgb 10.2 L, Hct 32.1 L, MCV 109.9 H, MCH 34.9 H, MCHC 31.8 L, RDW Std Deviation 76.7 H, RDW Coeff of Myke 19.9 H, Plt Count 207, MPV 12.3 H, Differential Comment COMMENT 05/30/19 09:35: Sodium 139, Potassium 4.7, Chloride 105, Carbon Dioxide 25.0, Anion Gap 9, BUN 73 H, Creatinine 2.81 H, Estim Creat Clear Calc 11.92, Est GFR (MDRD) Af Amer 21 L, Est GFR (MDRD) Non-Af 17 L, BUN/Creatinine Ratio 26.0 H, Glucose 132 H, Calcium 8.5 Current Medications Acetaminophen (Tylenol) 650 mg PO Q6H PRN PRN PRN Reason: Pain Score 1-10/Temp > 100.7 F Last Admin: 05/29/19 00:55 Dose: 650 mg Documented by: Al Hydroxide/Mg Hydroxide (Mylanta Ii) 30 ml PO Q6H PRN PRN PRN Reason: Gastric Burning Albuterol Sulfate (Ventolin Aerosols) 2.5 mg INHALATION Q2H PRN PRN PRN Reason: SOB/Wheezing Artificial Tears (Tears Naturale, Artificial Tears) 1 - 2 drop EACH EYE Q2H PRN PRN PRN Reason: DRY EYES Last Admin: 05/28/19 15:17 Dose: 1 drop Documented by: Aspirin (Ecotrin) 81 mg PO DAILY@0800 [facility] Last Admin: 05/30/19 09:12 Dose: 81 mg Documented by: Atorvastatin Calcium (Lipitor) 20 mg PO QHS [facility] Last Admin: 05/29/19 22:17 Dose: 20 mg Documented by: Brimonidine Tartrate (Brimonidine 0.2% 5ml Bottle) 1 drop EACH EYE BID [facility] Last Admin: 05/30/19 09:08 Dose: 1 drop Documented by: Cyanocobalamin (Vitamin B12) 1,000 mcg PO DAILY [facility] Last Admin: 05/30/19 09:12 Dose: 1,000 mcg Documented by: Fluticasone Propionate (Flonase Nasal [place]) 1 spray NASAL DAILY PRN PRN PRN Reason: ALLERGIES Last Admin: 05/29/19 18:15 Dose: 1 spray Documented by: Furosemide (Lasix) 40 mg PO BID@1000,1800 [facility] Last Admin: 05/30/19 09:18 Dose: 40 mg Documented by: Glucagon () 1 mg IM .X1 PRN PRN Reason: Hypoglycemia Guaifenesin (Robitussin) 20 ml PO Q4H PRN PRN PRN Reason: COUGH Heparin Sodium (Porcine) (Heparin Na) 5,000 unit SC Q12 [facility] Last Admin: 05/30/19 09:12 Dose: 5,000 unit Documented by: Hydralazine HCl (Apresoline Iv) 10 mg IV Q4H PRN PRN PRN Reason: SBP > 160 Dextrose (Dextrose 10%-Water) 250 mls @ 999 mls/hr IV .Q16M PRN; Protocol PRN Reason: HYPOGLYCEMIA Sodium Chloride () 250 mls @ 15 mls/hr IV .[id number] PRN PRN Reason: Saline Flush Sodium Chloride () 250 mls @ 15 mls/hr IV .[id number] PRN PRN Reason: Additional IVPB Infusion Isosorbide Mononitrate (Imdur) 60 mg PO DAILY [facility] Last Admin: 05/30/19 09:12 Dose: 60 mg Documented by: Latanoprost (Xalatan Opthalmic) 1 drop EACH EYE QHS [facility] Last Admin: 05/29/19 22:19 Dose: 1 drop Documented by: Magnesium Hydroxide (Milk Of Magnesia) 30 ml PO DAILY PRN PRN PRN Reason: Constipation Melatonin (Melatonin) 3 mg PO QHS PRN PRN PRN Reason: INSOMNIA Last Admin: 05/27/19 22:22 Dose: 3 mg Documented by: Metoprolol Tartrate (Lopressor (Beta Brandyn)) 75 mg PO BID [facility] Last Admin: 05/30/19 09:11 Dose: 75 mg Documented by: Nitroglycerin (Nitrostat) 0.4 mg SUBLINGUAL Q5M PRN PRN Reason: CARDIAC/CHEST PAIN Nutritional Formula (Lactose Free) (Ensure Clear) 120 ml PO 4X/DAY [facility] Last Admin: 05/30/19 09:12 Dose: 120 ml Documented by: Ondansetron HCl (Zofran) 4 mg IV Q8H PRN PRN PRN Reason: NAUSEA/VOMITING Potassium Chloride (K-Dur) 10 meq PO QHS [facility] Last Admin: 05/29/19 22:17 Dose: 10 meq Documented by: Psyllium Hydrophilic Mucilloid (Metamucil) 1 packet PO DAILY PRN PRN PRN Reason: Constipation Ranolazine (Ranexa) 1,000 mg PO BID [facility] Last Admin: 05/30/19 09:12 Dose: 1,000 mg Documented by: Senna/Docusate Sodium (Senokot-S, Rocio-Colace) 2 tablet PO BID PRN PRN PRN Reason: Constipation Sodium Chloride () 10 - 40 ml IV UD PRN PRN Reason: SALINE FLUSH Last Admin: 05/29/19 18:16 Dose: 20 ml Documented by: Throat Lozenges (Cepacol Sore Throat Lozenge) 1 lozenge MUCOUS MEM Q2H PRN PRN PRN Reason: SORE THROAT Timolol Maleate (Timoptic) 1 drop EACH EYE BID [facility] Last Admin: 05/30/19 09:08 Dose: 1 drop Documented by: Medical Necessity - Tobacco Use Smoking Status: Never smoker Tobacco Use: Non-smoker Assessment/Plan All Active Problems (Last Reviewed 05/23/19 @ 11:50 by Liudmila Byrd) SYLVIA (acute kidney injury) (Acute) CHF (congestive heart failure) (Acute) Dyspnea (Acute) History of coronary artery stent placement (Resolved 05/21/09) Acute on chronic systolic (congestive) heart failure (Acute) ARF (acute renal failure) (Resolved) Fracture of femoral neck, left (Resolved) Hypertensive emergency (Resolved) Injury of left shoulder and upper arm (Resolved) Pyelonephritis, acute (Resolved) Scalp laceration (Resolved) Chronic diastolic (congestive) heart failure (Ruled-out) SYLVIA CRS CKD 4 creatinine 2-2.6 Lower extremity edema Renal cysts Nephrolithiasis asymptomatic Heart failure Falls agree with change to p.o. Lasix 40 mg p.o. twice daily bp controlled continue current medications Avoid nephrotoxins overdiuresis.
--- NOTE | 2019-05-30 12:57 | PCM.DC.SUM ---
<Carol Perry - Last Filed: 05/30/19 13:08> Discharge Date and Diagnosis Date of Admission: 05/27/19 Date of Discharge: 05/30/19 - Primary Discharge Diagnosis Active and Suspected Problems (Last Reviewed 05/23/19 @ 11:50 by Liudmila Byrd) 1. Acute on chronic systolic and diastolic CHF 2. SYLVIA on CKD stage IV 3. Abnormal troponin-suspect demand ischemia as a result of #1. 4. CAD with history of PCI 5. Hypertension 6. Hyperlipidemia 7. Glaucoma 8. Rheumatoid arthritis/Sjogren's/peripheral neuropathy 9. Chronic macrocytic anemia 10. Abnormal LFTs 11. Debility with recurrent falls 12. 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 Electronically Signed: Goyo Tobias DO at 16:58 EST Tel , Service support , Chest X-Ray 05/28/19 05:55 IMPRESSION: Stable examination. Electronically Signed: Zaheer iSlverio, at 10:51 EST , Service support , Renal Ultrasound 05/28/19 13:16 IMPRESSION: Limited examination due to body habitus and sonographic technique. 7 mm nonobstructing renal stone. Bilateral renal cortical atrophy indicate medical renal disease. Electronically Signed: Vikas Ashraf, at 19:13 EST Tel , Service support , Abdomen Ultrasound 05/28/19 14:16 IMPRESSION: 3 mm gallbladder polyp. The kidney is not assessed on this examination. See same day renal ultrasound for evaluation of the kidneys. No acute process is identified. Electronically Signed: Vikas Ashraf, at 20:35 EST Tel , Service support , Dr. Farrar- Nephrology Dr. Deleon- Vascular surgery Operations: None Procedures: None Summary of Care Provided: The patient is a 78 year old F admitted 05/27/2019 due to confusion, frequent falls. 1. Acute on chronic systolic and diastolic CHF-echocardiogram 04/29/2019 demonstrated EF 20%, stage I diastolic dysfunction, moderate mitral valve insufficiency, mild aortic valve insufficiency, pulmonary artery systolic pressure 36 mmHg. Home Lasix regimen increased to 40 mg twice daily at discharge. Strict I&O. Daily weight. Jose wraps bilateral lower extremities. Follow-up with cardiology in 1 to 2 weeks. 2. SYLVIA on CKD stage IV-improving, trend BMP. Nephrology consulted. Renal ultrasound demonstrated bilateral renal cortical atrophy indicative of medical renal disease. Follow-up with nephrology in 1 week. 3. Abnormal troponin-suspect demand ischemia as a result of #1. Enzymes did not trend. Denies chest pain. 4. CAD with history of PCI-continue statin, isosorbide, metoprolol, Ranexa. Follows with Dr. Hernandez. 5. Hypertension-stable, continue isosorbide, metoprolol regimen. 6. Hyperlipidemia-continue statin. 7. Glaucoma-continue home ophthalmic regimen. 8. Rheumatoid arthritis/Sjogren's/peripheral neuropathy-no longer on regimen, stable. 9. Chronic macrocytic anemia-stable, trend CBC. 10. Abnormal LFTs-unclear etiology. Abdominal ultrasound shows no acute process. AST/ALT trending down. 11. Debility with recurrent falls- PT/OT. SNF pending acceptance. 12. PAD with diminished peripheral pulses- Dr. Deleon consulted. Vascular studies pending. Follow-up with Dr. Deleon in 1 week at TCU. 13. Given ongoing decline in functional status and multiple comorbidities, palliative referral made-recommend ongoing palliative/hospice discussion following discharge to TCU. General: Alert, Oriented x3, Cooperative HEENT: Atraumatic, PERRLA, EOMI, Normocephalic Neck: Supple, No JVD, Negative Carotid Bruits Lungs: Clear to auscultation, Normal air movement Cardiovascular: Regular rate, No murmurs Abdomen: Bowel Sounds Present, Soft, Non Tender, Non-Distended Extremities: No clubbing, No cyanosis, No edema, Capillary Refill Less than 3 Seconds Skin: No rashes, No breakdown Musculoskeletal: No Tenderness to Palpation of Joints or Extremities Neurological: Cranial nerves II-XII grossly intact, Neuro grossly intact Psych/Mental Status: Normal Affect, Appropriate Patient seen and examined prior to discharge. Physical assessment as noted above. Patient is stable for discharge with follow up recommendations as noted above. This patient was seen by MICHELLE He under the supervision of Dr. Wiseman. - Physical Exam Vitals/I&O's: Vital Signs Temp Pulse Resp BP Pulse Ox 97.8 F 65 16 141/58 H 98 05/30/19 09:03 05/30/19 09:11 05/30/19 09:03 05/30/19 09:03 05/30/19 09:03 Oxygen Delivery Method Room Air Weight: 102 lb 8.239 oz Body Mass Index (BMI) 17.9 Intake and Output for Last 24 Hours 05/28/19 05/29/19 05/30/19 23:59 23:59 23:59 Intake Total 740 / 740 540 / 540 40 / 40 Balance 740 / 740 540 / 540 40 / 40 Laboratory Results 05/30/19 09:35: WBC 13.3 H, RBC 2.92 L, Hgb 10.2 L, Hct 32.1 L, MCV 109.9 H, MCH 34.9 H, MCHC 31.8 L, RDW Std Deviation 76.7 H, RDW Coeff of Myke 19.9 H, Plt Count 207, MPV 12.3 H, Differential Comment COMMENT 05/30/19 09:35: Sodium 139, Potassium 4.7, Chloride 105, Carbon Dioxide 25.0, Anion Gap 9, BUN 73 H, Creatinine 2.81 H, Estim Creat Clear Calc 11.92, Est GFR (MDRD) Af Amer 21 L, Est GFR (MDRD) Non-Af 17 L, BUN/Creatinine Ratio 26.0 H, Glucose 132 H, Calcium 8.5 Current Medications Acetaminophen (Tylenol) 650 mg PO Q6H PRN PRN PRN Reason: Pain Score 1-10/Temp > 100.7 F Last Admin: 05/29/19 00:55 Dose: 650 mg Documented by: Al Hydroxide/Mg Hydroxide (Mylanta Ii) 30 ml PO Q6H PRN PRN PRN Reason: Gastric Burning Albuterol Sulfate (Ventolin Aerosols) 2.5 mg INHALATION Q2H PRN PRN PRN Reason: SOB/Wheezing Artificial Tears (Tears Naturale, Artificial Tears) 1 - 2 drop EACH EYE Q2H PRN PRN PRN Reason: DRY EYES Last Admin: 05/28/19 15:17 Dose: 1 drop Documented by: Aspirin (Ecotrin) 81 mg PO DAILY@0800 [facility] Last Admin: 05/30/19 09:12 Dose: 81 mg Documented by: Atorvastatin Calcium (Lipitor) 20 mg PO QHS [facility] Last Admin: 05/29/19 22:17 Dose: 20 mg Documented by: Brimonidine Tartrate (Brimonidine 0.2% 5ml Bottle) 1 drop EACH EYE BID [facility] Last Admin: 05/30/19 09:08 Dose: 1 drop Documented by: Cyanocobalamin (Vitamin B12) 1,000 mcg PO DAILY [facility] Last Admin: 05/30/19 09:12 Dose: 1,000 mcg Documented by: Fluticasone Propionate (Flonase Nasal Eckerman) 1 spray NASAL DAILY PRN PRN PRN Reason: ALLERGIES Last Admin: 05/29/19 18:15 Dose: 1 spray Documented by: Furosemide (Lasix) 40 mg PO BID@1000,1800 [facility] Last Admin: 05/30/19 09:18 Dose: 40 mg Documented by: Glucagon () 1 mg IM .X1 PRN PRN Reason: Hypoglycemia Guaifenesin (Robitussin) 20 ml PO Q4H PRN PRN PRN Reason: COUGH Heparin Sodium (Porcine) (Heparin Na) 5,000 unit SC Q12 [facility] Last Admin: 05/30/19 09:12 Dose: 5,000 unit Documented by: Hydralazine HCl (Apresoline Iv) 10 mg IV Q4H PRN PRN PRN Reason: SBP > 160 Dextrose (Dextrose 10%-Water) 250 mls @ 999 mls/hr IV .Q16M PRN; Protocol PRN Reason: HYPOGLYCEMIA Sodium Chloride () 250 mls @ 15 mls/hr IV .[id number] PRN PRN Reason: Saline Flush Sodium Chloride () 250 mls @ 15 mls/hr IV .[id number] PRN PRN Reason: Additional IVPB Infusion Isosorbide Mononitrate (Imdur) 60 mg PO DAILY [facility] Last Admin: 05/30/19 09:12 Dose: 60 mg Documented by: Latanoprost (Xalatan Opthalmic) 1 drop EACH EYE QHS [facility] Last Admin: 05/29/19 22:19 Dose: 1 drop Documented by: Magnesium Hydroxide (Milk Of Magnesia) 30 ml PO DAILY PRN PRN PRN Reason: Constipation Melatonin (Melatonin) 3 mg PO QHS PRN PRN PRN Reason: INSOMNIA Last Admin: 05/27/19 22:22 Dose: 3 mg Documented by: Metoprolol Tartrate (Lopressor (Beta Brandyn)) 75 mg PO BID [facility] Last Admin: 05/30/19 09:11 Dose: 75 mg Documented by: Nitroglycerin (Nitrostat) 0.4 mg SUBLINGUAL Q5M PRN PRN Reason: CARDIAC/CHEST PAIN Nutritional Formula (Lactose Free) (Ensure Clear) 120 ml PO 4X/DAY [facility] Last Admin: 05/30/19 09:12 Dose: 120 ml Documented by: Ondansetron HCl (Zofran) 4 mg IV Q8H PRN PRN PRN Reason: NAUSEA/VOMITING Potassium Chloride (K-Dur) 10 meq PO QHS [facility] Last Admin: 05/29/19 22:17 Dose: 10 meq Documented by: Psyllium Hydrophilic Mucilloid (Metamucil) 1 packet PO DAILY PRN PRN PRN Reason: Constipation Ranolazine (Ranexa) 1,000 mg PO BID [facility] Last Admin: 05/30/19 09:12 Dose: 1,000 mg Documented by: Senna/Docusate Sodium (Senokot-S, Rocio-Colace) 2 tablet PO BID PRN PRN PRN Reason: Constipation Sodium Chloride () 10 - 40 ml IV UD PRN PRN Reason: SALINE FLUSH Last Admin: 05/29/19 18:16 Dose: 20 ml Documented by: Throat Lozenges (Cepacol Sore Throat Lozenge) 1 lozenge MUCOUS MEM Q2H PRN PRN PRN Reason: SORE THROAT Timolol Maleate (Timoptic) 1 drop EACH EYE BID JOSLYN Last Admin: 05/30/19 09:08 Dose: 1 drop Documented by: Home Medications: Medications to take at Discharge Multivit-Min/FA/Lycopen/Lutein [Centrum Silver Tablet] 1 tab PO DAILY 04/01/15 Cholecalciferol (Vitamin D3) [Vitamin D3] 5,000 unit PO DAILY 06/06/18 Cyanocobalamin (Vitamin B-12) [B-12] 1,000 mcg PO DAILY 06/06/18 Vit C/E/Zn/Coppr/Lutein/Zeaxan [Preservision Areds 2 Softgel] 1 cap PO BID 06/06/18 atorvastatin 20 mg tablet 20 mg PO QHS 06/21/18 potassium chloride 10 mEq capsule,extended release 10 meq PO QHS cap 06/21/18 Brimonidine Tartrate/Timolol [Combigan Eye Drops] 1 drp EACH EYE BID 02/13/19 Latanoprost 1 drp EACH EYE QHS 02/13/19 isosorbide mononitrate 60 mg tablet,extended release 24 hr 60 mg PO DAILY tab 02/19/19 Metoprolol Tartrate [Lopressor (beta brandyn)] 75 mg PO BID 03/20/19 Ranolazine [Ranexa] 1,000 mg PO BID 03/20/19 Acetaminophen [Tylenol] 1,000 mg PO Q8H 04/28/19 Lifitegrast [Xiidra] 1 ea OP BID 04/29/19 fluticasone propionate 50 mcg/actuation nasal spray,suspension 1 spray INTRANASAL DAILY PRN PRN 05/23/19 Calcium Carb/Vitamin D [Caltrate-600 With Vit D Tab] 1 tab PO BIDCM 05/27/19 Nitroglycerin [Nitrostat] 0.4 mg SUBLINGUAL Q5M PRN 05/27/19 Aspirin E.C. [Ecotrin] 81 mg PO DAILY@0800 tab 05/30/19 Furosemide [Lasix] 40 mg PO BID@1000,1800 tab 05/30/19 Primary Care Physician: Demarco Lopez MD [Primary Care Provider] - Please follow up with your Primary Care Physician in: 1 Week Please Follow Up With: Nahid Hernandez MD When: 1-2 Weeks Please Follow Up With: Zeferino Farrar MD - Nephrology When: 1 Week upon discharge from TCU consult on TCU if worsening BMP Please Follow Up With: Octaviano Macias DO When: Palliative referral made prior to DC to TCU Please Follow Up With: Tom Deleon MD When: 1 Week Disposition: Detention facility Minutes spent on discharge:: 35 Patient Condition:: Stable Medical Necessity - Tobacco Use Smoking Status: Never smoker Tobacco Use: Non-smoker Meaningful Use Info Meaningful Use Diagnoses (Choose all that apply): CHF - CHF JOSE/ARB ordered at discharge?: No Reason JOSE/ARB not ordered?: Worsening renal dysfunctn Documented LVEF (%): 20 <Sanjay Wiseman - Last Filed: 05/30/19 14:20> Discharge Date and Diagnosis - Secondary Discharge Diagnosis Chronic Problems (Last Updated 05/30/19 @ 12:57 by Carol Perry NP-C) Lower extremity edema (Chronic) Atherosclerotic heart disease of [place] coronary artery without angina pectoris (Chronic) History of non-ST elevation myocardial infarction (NSTEMI) (Chronic 04/2019) 05/2018, 03/2019, 04/2019 Essential (primary) hypertension (Chronic) Hyperlipemia (Chronic) 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 I have independently interviewed and examined the patient and reviewed pertinent history, examination findings, laboratory and plan of management. I have reviewed the note and agree with the documented findings with the few additional points. In brief, patient is 78-year-old female was admitted with lower extremity edema and dyspnea on exertion and recurrent fall consistent with acute on chronic systolic and diastolic heart failure. Patient was admitted in April for similar diagnosis. Echo at that time shows EF 20%, stage I diastolic dysfunction, 2+ MR, 1+ TR, RVSP 36 mmHg. Chest x-ray independently reviewed and shows small left pleural effusion. Patient also has acute kidney injury on CKD stage IV. Renal ultrasound 7 mm nonobstructing right right renal stone. Bilateral renal cortical atrophy indicates medical renal disease Patient also has elevated transaminases. Previous LFT on May 01, 2019 showed alkaline phosphatase 143 but normal transaminases. ALT 152, AST 169, alkaline phosphatase 152. Normal total bilirubin. Albumin 2.5. Patient does not have chronic alcohol use or substance use history and therefore consistent with congestive liver disease from CHF. On diuretic. Right upper quadrant sonogram was done and reported 3 mm gallbladder polyp. Liver shows normal echogenicity no mass identified. CBD 3 mm. Multiple recurrent fall: PT, OT and assistant purchasing manager following the patient. MOOSE: Right side 1.19, left 0.9, DBI: Right 1.16, left 0.9. Right-sided suggestive of possible chronic arteriosclerosis/calcification. Vascular surgeon was consulted but has not seen the patient. Follow-up with Dr. Deleon as an outpatient Initially, insurance refused but accepted on one-to-one peer Reviewed. Patient is being discharged to TCU. Patient has CKD stage IV. BUN/creatinine stable, 73/2.81. Ultrasound kidneys shows bilateral renal cortical atrophic kidneys. This was discussed with the patient's son near the bedside. Patient, her family members including patient's son, daughter Anaya and son-in-law are not clear about advanced directive, goal of life/end-of-life care. Patient's son was told, she is on the verge of dialysis therefore, needs to make decision. Benefits, risk of dialysis, CPR, intubation/ventilator management and defibrillator if needed in future discussed with patient son. Palliative care consult advised and patient accepted. Follow-up palliative care in TCU. Discharge medication reconciliation done. Discharge follow-up instructions completed. Discharge process discussed with the patient and all questions were answered to patient's satisfaction. Total time spent, exact 35 minutes on discharge meds reconciliation, examination, coordination of care with nurses and ancillary staff, review of imaging and blood test and discussion with the patient on follow-up instructions I have discussed my assessment with BATCH UNIT TREATERCarol and orders have been reviewed. Clinical Impression(s) from Imaging Studies Brain CT 05/27/19 15:17 IMPRESSION: Chronic involutional changes of the brain. Electronically Signed: Goyo Tobias DO at 16:58 EST Tel , Service support , Chest X-Ray 05/27/19 16:10 IMPRESSION: Persistent left basilar opacity may represent effusion and atelectasis. Underlying pneumonia should be excluded clinically. Electronically Signed: Vikas Ashraf, at 17:37 EST Tel , Service support , Chest X-Ray 05/28/19 05:55 IMPRESSION: Stable examination. Electronically Signed: Zaheer Nusrat, at 10:51 EST , Service support , Renal Ultrasound 05/28/19 13:16 IMPRESSION: Limited examination due to body habitus and sonographic technique. 7 mm nonobstructing renal stone. Bilateral renal cortical atrophy indicate medical renal disease. Abdomen Ultrasound 05/28/19 14:16 IMPRESSION: 3 mm gallbladder polyp. No acute process is identified. - Physical Exam Vitals/I&O's: Vital Signs Temp Pulse Resp BP Pulse Ox 97.8 F 65 16 141/58 H 98 05/30/19 09:03 05/30/19 09:11 05/30/19 09:03 05/30/19 09:03 05/30/19 09:03 Oxygen Delivery Method Room Air Weight: 102 lb 8.239 oz Body Mass Index (BMI) 17.9 Intake and Output for Last 24 Hours 05/28/19 05/29/19 05/30/19 23:59 23:59 23:59 Intake Total 740 / 740 540 / 540 40 / 40 Balance 740 / 740 540 / 540 40 / 40 Laboratory Results 05/30/19 09:35: WBC 13.3 H, RBC 2.92 L, Hgb 10.2 L, Hct 32.1 L, MCV 109.9 H, MCH 34.9 H, MCHC 31.8 L, RDW Std Deviation 76.7 H, RDW Coeff of Myke 19.9 H, Plt Count 207, MPV 12.3 H, Differential Comment COMMENT 05/30/19 09:35: Sodium 139, Potassium 4.7, Chloride 105, Carbon Dioxide 25.0, Anion Gap 9, BUN 73 H, Creatinine 2.81 H, Estim Creat Clear Calc 11.92, Est GFR (MDRD) Af Amer 21 L, Est GFR (MDRD) Non-Af 17 L, BUN/Creatinine Ratio 26.0 H, Glucose 132 H, Calcium 8.5 Current Medications Acetaminophen (Tylenol) 650 mg PO Q6H PRN PRN PRN Reason: Pain Score 1-10/Temp > 100.7 F Last Admin: 05/29/19 00:55 Dose: 650 mg Documented by: Al Hydroxide/Mg Hydroxide (Mylanta Ii) 30 ml PO Q6H PRN PRN PRN Reason: Gastric Burning Albuterol Sulfate (Ventolin Aerosols) 2.5 mg INHALATION Q2H PRN PRN PRN Reason: SOB/Wheezing Artificial Tears (Tears Naturale, Artificial Tears) 1 - 2 drop EACH EYE Q2H PRN PRN PRN Reason: DRY EYES Last Admin: 05/28/19 15:17 Dose: 1 drop Documented by: Aspirin (Ecotrin) 81 mg PO DAILY@0800 [facility] Last Admin: 05/30/19 09:12 Dose: 81 mg Documented by: Atorvastatin Calcium (Lipitor) 20 mg PO QHS [facility] Last Admin: 05/29/19 22:17 Dose: 20 mg Documented by: Brimonidine Tartrate (Brimonidine 0.2% 5ml Bottle) 1 drop EACH EYE BID [facility] Last Admin: 05/30/19 09:08 Dose: 1 drop Documented by: Cyanocobalamin (Vitamin B12) 1,000 mcg PO DAILY [facility] Last Admin: 05/30/19 09:12 Dose: 1,000 mcg Documented by: Fluticasone Propionate (Flonase Nasal Eckerman) 1 spray NASAL DAILY PRN PRN PRN Reason: ALLERGIES Last Admin: 05/29/19 18:15 Dose: 1 spray Documented by: Furosemide (Lasix) 40 mg PO BID@1000,1800 [facility] Last Admin: 05/30/19 09:18 Dose: 40 mg Documented by: Glucagon () 1 mg IM .X1 PRN PRN Reason: Hypoglycemia Guaifenesin (Robitussin) 20 ml PO Q4H PRN PRN PRN Reason: COUGH Heparin Sodium (Porcine) (Heparin Na) 5,000 unit SC Q12 [facility] Last Admin: 05/30/19 09:12 Dose: 5,000 unit Documented by: Hydralazine HCl (Apresoline Iv) 10 mg IV Q4H PRN PRN PRN Reason: SBP > 160 Dextrose (Dextrose 10%-Water) 250 mls @ 999 mls/hr IV .Q16M PRN; Protocol PRN Reason: HYPOGLYCEMIA Sodium Chloride () 250 mls @ 15 mls/hr IV .[id number] PRN PRN Reason: Saline Flush Sodium Chloride () 250 mls @ 15 mls/hr IV .[id number] PRN PRN Reason: Additional IVPB Infusion Isosorbide Mononitrate (Imdur) 60 mg PO DAILY [facility] Last Admin: 05/30/19 09:12 Dose: 60 mg Documented by: Latanoprost (Xalatan Opthalmic) 1 drop EACH EYE QHS [facility] Last Admin: 05/29/19 22:19 Dose: 1 drop Documented by: Magnesium Hydroxide (Milk Of Magnesia) 30 ml PO DAILY PRN PRN PRN Reason: Constipation Melatonin (Melatonin) 3 mg PO QHS PRN PRN PRN Reason: INSOMNIA Last Admin: 05/27/19 22:22 Dose: 3 mg Documented by: Metoprolol Tartrate (Lopressor (Beta Brandyn)) 75 mg PO BID [facility] Last Admin: 05/30/19 09:11 Dose: 75 mg Documented by: Nitroglycerin (Nitrostat) 0.4 mg SUBLINGUAL Q5M PRN PRN Reason: CARDIAC/CHEST PAIN Nutritional Formula (Lactose Free) (Ensure Clear) 120 ml PO 4X/DAY [facility] Last Admin: 05/30/19 09:12 Dose: 120 ml Documented by: Ondansetron HCl (Zofran) 4 mg IV Q8H PRN PRN PRN Reason: NAUSEA/VOMITING Potassium Chloride (K-Dur) 10 meq PO QHS [facility] Last Admin: 05/29/19 22:17 Dose: 10 meq Documented by: Psyllium Hydrophilic Mucilloid (Metamucil) 1 packet PO DAILY PRN PRN PRN Reason: Constipation Ranolazine (Ranexa) 1,000 mg PO BID [facility] Last Admin: 05/30/19 09:12 Dose: 1,000 mg Documented by: Senna/Docusate Sodium (Senokot-S, Rocio-Colace) 2 tablet PO BID PRN PRN PRN Reason: Constipation Sodium Chloride () 10 - 40 ml IV UD PRN PRN Reason: SALINE FLUSH Last Admin: 05/29/19 18:16 Dose: 20 ml Documented by: Throat Lozenges (Cepacol Sore Throat Lozenge) 1 lozenge MUCOUS MEM Q2H PRN PRN PRN Reason: SORE THROAT Timolol Maleate (Timoptic) 1 drop EACH EYE BID [facility] Last Admin: 05/30/19 09:08 Dose: 1 drop Documented by:
--- NOTE | 2019-05-30 13:05 | CASEMGMT ---
VINICIO received call from Mercedes stating patient was denied by insurance to go to TCU. SW notified HAT FORMING MACHINE FEEDER Celine who said she would do a peer to peer. VINCIIO called María Elena peer to peer and scheduled for the insurance physician to call HAT FORMING MACHINE FEEDER Celine. Physician also talked with patient and her son about Palliative Care. Celine completed peer to peer and patient was approved for TCU. SW spoke with patient and her son. SW explained patient was initially denied, but HAT FORMING MACHINE FEEDER did peer to peer and she is now approved. SW also talked about Palliative Care and they were in agreement with a referral being made. SW let them know SW will call patient's daughter since she is the POA. SW called patient's daughter, introduced self and role at [facility]. SW explained denial and then approval for TCU. SW also explained Palliative Care to her and she is in agreement with a referral as well. She will be expecting a call from Palliative Care at some point. Plan: d/c to [facility] TCU under skilled level of care. A referral was made to Palliative Care. Arin BARR MSW
== END 2019-05-30 14:21 | disposition skilled nursing facility (03) | DRG 291 ==
LOC: ED 16:29 → PCU 19:26
PROVIDERS: Internal Medicine; Nurse Practitioner Family; Physician Assistant; Admitting Provider Family Medicine; Emergency Provider Emergency Medicine; PCP Family Medicine; Visit Provider Internal Medicine
DX: I13.0 Hypertensive heart and chronic kidney disease with heart failure and stage 1 through stage 4 chronic kidney disease, or unspecified chronic kidney disease (principal); I50.43 Acute on chronic combined systolic (congestive) and diastolic (congestive) heart failure; N18.4 Chronic kidney disease, stage 4 (severe); I24.8 Other forms of acute ischemic heart disease; N17.9 Acute kidney failure, unspecified; I25.10 Atherosclerotic heart disease of native coronary artery without angina pectoris; K76.1 Chronic passive congestion of liver; E78.00 Pure hypercholesterolemia, unspecified; H40.9 Unspecified glaucoma; D50.9 Iron deficiency anemia, unspecified; I73.9 Peripheral vascular disease, unspecified; M06.9 Rheumatoid arthritis, unspecified; M35.00 Sjogren syndrome, unspecified; R29.6 Repeated falls; Z79.899 Other long term (current) drug therapy; I25.2 Old myocardial infarction; Z96.643 Presence of artificial hip joint, bilateral; Z95.5 Presence of coronary angioplasty implant and graft
CPT/HCPCS: 36415; 70450; 71046; 76705; 76770; 80048; 80053; 81001; 82607; 82746; 83036; 83735; 83880; 84439; 84443; 84484; 85025; 85027; 85610; 92610; 93005; 93922; 97110; 97116; 97162; 97166; 97530; 97535; 97802; 99251; 99285; P9612; A4216; G0463; J1940

== ENCOUNTER 2019-05-30 14:37 | Inpatient (IN) | payer MEDICARE, SELFPAY ==
[2019-05-27 20:26] VITALS: BMI 17.9
[2019-05-30 14:47] VITALS: BP 127/63; PULSE 70; RESP 16; TEMP 36.3; O2SAT 93
[2019-05-30 15:05] VITALS: BMI 17.0
[2019-05-30 15:16] VITALS: BMI 17.1
--- NOTE | 2019-05-30 16:05 | CASEMGMT ---
Social Work Reviewed and agreed with social work internal controls analyst documentation on this date. Twila Gutierres, RUBBER [employer] PLAST[employer] WORKER SOLDER LEVELER [employer]
--- NOTE | 2019-05-30 16:13 | HP.PCM_ITS ---
Problem List (1) Debility Status: Acute (2) Fall Status: Acute (3) Encephalopathy Status: Acute (4) Acute on chronic kidney failure Status: Acute (5) Acute on chronic systolic and diastolic heart failure, NYHA class 4 Status: Acute (6) Dysphagia Status: Acute (7) Fecal impaction of colon Status: Chronic (8) Hypertension Status: Chronic (9) Coronary artery disease Status: Chronic (10) Hypokalemia Status: Chronic (11) Glaucoma Status: Chronic (12) Allergic rhinitis Status: Chronic (13) Dry eye Status: Chronic (14) Claustrophobia Status: Chronic (15) Anxiety Status: Chronic (16) Hyperlipemia Status: Chronic Qualifiers: (17) Iron deficiency anemia Status: Chronic Qualifiers: History of Present Illness Date of Admission: 05/30/19 Chief Complaint: Here for rehabilitation, strengthening, prior to disposition determination. The patient is a 78 year old Female with below past medical history presented to [facility] Emergency Department with fall. 05/27/2019 CT brain chronic involutional changes. 05/27/2019 EKG normal sinus rhythm, possible left atrial enlargement, right bundle branch block, left anterior fascicular block, bifascicular block, septal infarct, age undetermined. 05/27/2019 Chest X-ray persistent left basilar opacity effusion/atelectasis. Frequent falls, recent pelvic fracture. Abrasions on arms. Increased agitation, Increase combativeness. Mild cough. Acute kidney injury, cardiac strain, elevated BNP consistent with acute on chronic systolic diastolic congestive heart failure. UA negative. Lasix 40MG IV given. 05/27/2019 Admit to Hospital. IV Lasix, Morphine PRN, oxygen for congestive heart failure. Monitor acute kidney injury. Elevated liver enzymes secondary to congestive heart failure. 05/28/2019 Renal ultrasound showed right nonobstructing kidney stone. Bilateral medical renal disease. 05/28/2019 Right upper quadrant ultrasound showed 3mm gallbladder polyp. EF 20%. Lasix 40MG twice daily. Cardiac enzymes did not trend upwards, indeterminate troponin secondary to demand ischemia. Elevated liver enzymes improved. Dr. Deleon consulted for PAOD. Palliative care consult, consider hospice. 05/30/2019 Admit to TCU with debility, here for rehabilitation, strengthening, prior to disposition determination. Resident c/o dysphagia, will consult ST. She is constipated, will order bowel regimen with clean out. Past Medical History Past Medical History (Chronic Problems): Chronic Problems (Last Updated 05/30/19 @ 12:57 by MICHELLE He) Fecal impaction of colon (Chronic) Hypertension (Chronic) Coronary artery disease (Chronic) Hypokalemia (Chronic) Glaucoma (Chronic) Allergic rhinitis (Chronic) Dry eye (Chronic) Claustrophobia (Chronic) Anxiety (Chronic) Lower extremity edema (Chronic) Atherosclerotic heart disease of [place] coronary artery without angina pectoris (Chronic) History of non-ST elevation myocardial infarction (NSTEMI) (Chronic 04/2019) 05/2018, 03/2019, 04/2019 Essential (primary) hypertension (Chronic) Hyperlipemia (Chronic) 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) Iron deficiency anemia (Chronic) Recurrent falls (Chronic) Medical History: Medical History (Last Updated 05/30/19 @ 12:57 by MICHELLE He) Lower extremity edema (Chronic) R60.0 Atherosclerotic heart disease of [place] coronary artery without angina pectoris (Chronic) I25.10 History of non-ST elevation myocardial infarction (NSTEMI) (Chronic) Onset Date: 04/2019 I25.2 05/2018, 03/2019, 04/2019 Acute on chronic systolic (congestive) heart failure (Acute) I50.23 Essential (primary) hypertension (Chronic) I10 Hyperlipemia (Chronic) E78.5 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) I45.2 Iron deficiency anemia (Chronic) D50.9 Recurrent falls (Chronic) R29.6 Anemia D64.9 Chronic kidney disease, stage 3 (moderate) N18.3 Chronic renal insufficiency N18.9 Closed fracture of left inferior pubic ramus S32.592A History of Sjogren's disease Z87.39 Rheumatoid arthritis M06.9 ARF (acute renal failure) (Resolved) GI bleed K92.2 Pleural effusion, left J90 Syncope and collapse R55 Chronic diastolic (congestive) heart failure (Ruled-out) I50.32 Diastolic dysfunction (Inactive) I51.9 Left ventricular hypertrophy (Inactive) I51.7 Allergies adalimumab [From Humira] Allergy (Verified 05/27/19 14:49) Rash ciprofloxacin HCl [From Cipro] Allergy (Verified 05/27/19 14:49) Unknown doxazosin Allergy (Verified 05/27/19 14:49) Other hydroxyzine [From Vistaril] Allergy (Verified 05/27/19 14:49) Other latex Allergy (Verified 05/27/19 14:49) Rash levofloxacin [From Levaquin] Allergy (Verified 05/27/19 14:49) Unknown lisinopril Allergy (Verified 05/27/19 14:49) Other COUGH Methotrexate Analogues Allergy (Verified 05/27/19 14:49) Hives naproxen Allergy (Verified 05/27/19 14:49) Unknown potassium clavulanate [From Augmentin] Allergy (Verified 05/27/19 14:49) Unknown Sulfa (Sulfonamide Antibiotics) Allergy (Verified 05/27/19 14:49) Unknown amlodipine Adverse Reaction (Severe, Verified 05/27/19 14:49) edema haloperidol lactate [From Haldol] Adverse Reaction (Unknown, Verified 05/27/19 14:49) agitation amoxicillin trihydrate [From Augmentin] Adverse Reaction (Verified 05/27/19 14:49) Upset Stomach hydromorphone HCl [From Dilaudid] Adverse Reaction (Verified 05/27/19 14:49) Other HALLUCINATIONS hydroxychloroquine sulfate [From Plaquenil] Adverse Reaction (Verified 05/27/19 14:49) Other VISION ISSUES Home Medications: Ambulatory Orders Medication Instructions Recorded Multivit-Min/FA/Lycopen/Lutein 1 tab PO DAILY 04/01/15 [Centrum Silver Tablet] Cholecalciferol (Vitamin D3) 5,000 unit PO DAILY 06/06/18 [Vitamin D3] Cyanocobalamin (Vitamin B-12) 1,000 mcg PO DAILY 06/06/18 [B-12] Vit C/E/Zn/Coppr/Lutein/Zeaxan 1 cap PO BID 06/06/18 [Preservision Areds 2 Softgel] atorvastatin 20 mg tablet 20 mg PO QHS 06/21/18 potassium chloride 10 mEq 10 meq PO QHS cap 06/21/18 capsule,extended release Brimonidine Tartrate/Timolol 1 drp EACH EYE BID 02/13/19 [Combigan Eye Drops] Latanoprost 1 drp EACH EYE QHS 02/13/19 isosorbide mononitrate 60 mg 60 mg PO DAILY tab 02/19/19 tablet,extended release 24 hr Metoprolol Tartrate [Lopressor 75 mg PO BID 03/20/19 (beta brandyn)] Ranolazine [Ranexa] 1,000 mg PO BID 03/20/19 Acetaminophen [Tylenol] 1,000 mg PO Q8H 04/28/19 Lifitegrast [Xiidra] 1 ea OP BID 04/29/19 fluticasone propionate 50 1 spray INTRANASAL DAILY PRN PRN 05/23/19 mcg/actuation nasal spray,suspension Calcium Carb/Vitamin D 1 tab PO BIDCM 05/27/19 [Caltrate-600 With Vit D Tab] Nitroglycerin [Nitrostat] 0.4 mg SUBLINGUAL Q5M PRN 05/27/19 Aspirin E.C. [Ecotrin] 81 mg PO DAILY@0800 05/30/19 Furosemide [Lasix] 40 mg PO BID@1000,1800 05/30/19 Surgical History: Surgical History (Last Reviewed 05/23/19 @ 11:50 by Liudmila Byrd) History of coronary artery stent placement (Resolved) Onset Date: 05/21/09 Z95.5 PCI-NIGHAT-RCA w/ 2.5 x 28 mm Promus Stent x 2, NIGHAT-Ramus w/ 2.25 x 20 Taxus Stent 05/21/2009 History of carpal tunnel release Z98.890 History of left heart catheterization Onset Date: 06/07/18 Z98.890 History of left hip replacement Z96.642 History of right hip hemiarthroplasty Z96.641 Surgical History: angioplasty, total hip arthroplasty - Bilateral, - - Carpal tunnel surgery. Psychiatric History: Anxiety COMPLIANCE LEAD History: No pertinent COMPLIANCE LEAD history Lives: With Family - Son Anup lives on property. Smoking Status: Never smoker Tobacco Use: Non-smoker Alcohol: None Drugs: None - *Family History Paternal Family History: Family History (Last Reviewed 05/23/19 @ 11:50 by Liudmila Byrd) Father No problems noted. History Items: Heart Disease Maternal Family History: Family History (Last Reviewed 05/23/19 @ 11:50 by Liudmila Byrd) Father No problems noted. History Items: Cancer - Mother with history of breast cancer. Review of Systems Constitutional: Reports: Weakness. Denies: Chills, Fever, Weight Change HEENT: Denies: Head Aches, Sinus Congestion, Sinus Drainage Cardiovascular: Denies: Chest Pain, Palpitations Respiratory: Denies: Cough, Shortness of breath at rest, Sputum production Gastrointestinal: Denies: Abdominal Pain, Nausea, Vomiting Genitourinary: Denies: Dysuria Musculoskeletal: Denies: Joint Pain, Joint Tenderness Skin: Denies: Rash, Wounds Neurological: Denies: Numbness, Tingling, Focal weakness Psychiatric: Denies: Anxiety, Depression, Homicidal Ideations, Suicidal Ideations Hematologic/ Lymphatic: Denies: Easy Bruising, Easy Bleeding VTE Information - Inpt Only VTE Present on Admission: No VTE Mechan Device Prophylaxis: Knee High ELLIS Hose VTE Pharm Prophylaxis ordered?: Yes Patient Problems: Active and Suspected Problems (Last Updated 05/30/19 @ 12:57 by Carol Perry NP-C) Debility (Acute) Fall (Acute) Encephalopathy (Acute) Acute on chronic kidney failure (Acute) Acute on chronic systolic and diastolic heart failure, NYHA class 4 (Acute) Dysphagia (Acute) - Physical Exam Vitals/I&O's: Vital Signs Temp Pulse Resp BP Pulse Ox 97.4 F L 70 16 127/63 H 93 05/30/19 14:47 05/30/19 14:47 05/30/19 14:47 05/30/19 14:47 05/30/19 14:47 Oxygen Delivery Method Room Air Weight: 45.087 kg Body Mass Index (BMI) 17.0 General: Alert, Oriented x3, Cooperative HEENT: Atraumatic, PERRLA, EOMI, Normocephalic Neck: Supple, No JVD, Negative Carotid Bruits Lungs: Clear to auscultation, Normal air movement Cardiovascular: Regular rate, No murmurs, - - Port left upper chest. Abdomen: Bowel Sounds Present, Soft, Non Tender, - - Full of stool. Extremities: No edema, Capillary Refill Less than 3 Seconds Skin: No rashes, No breakdown Musculoskeletal: No Tenderness to Palpation of Joints or Extremities Neurological: Cranial nerves II-XII grossly intact Psych/Mental Status: Normal Affect, Appropriate Current Medications Acetaminophen (Tylenol) 1,000 mg PO Q8 [facility] Aspirin (Ecotrin) 81 mg PO DAILY@0800 [facility] Atorvastatin Calcium (Lipitor) 20 mg PO QHS JOSLYN Brimonidine Tartrate (Combigan Eye Drops) 1 drop EACH EYE BID JOSLYN Calcium/Vitamin D (Os-Osmany 500mg + D) 1 tablet PO BIDCM JOSLYN Cholecalciferol (Vitamin D) 5,000 unit PO DAILY JOSLYN Cyanocobalamin (Vitamin B12) 1,000 mcg PO DAILY JOSLYN Fluticasone Propionate (Flonase Nasal [place]) 1 spray NASAL DAILY PRN PRN PRN Reason: ALLERGIES Furosemide (Lasix) 40 mg PO BID@1000,1800 JOSLYN Heparin Sodium (Beef Lung) () 50 units IV UD PRN PRN Reason: Port-a-Cath (VAD)Heparin Flush Isosorbide Mononitrate (Imdur) 60 mg PO DAILY JOSLYN Latanoprost (Xalatan Opthalmic) 1 drop EACH EYE QHS JOSLYN Metoprolol Tartrate (Lopressor (Beta Brandyn)) 75 mg PO BID JOSLYN Multivitamins/Minerals (Healthy Eyes (Bkc)) 1 capsule PO BID JOSLYN Multivitamins/Minerals (Multivitamin With Minerals (Bkc)) 1 tablet PO DAILY@0800 JOSLYN Nitroglycerin (Nitrostat) 0.4 mg SUBLINGUAL Q5M PRN PRN Reason: CARDIAC/CHEST PAIN Non-Formulary Medication (Lifitegrast) 1 ea OP BID JOSLYN Potassium Chloride (K-Dur) 10 meq PO QHS JOSLYN Ranolazine (Ranexa) 1,000 mg PO BID JOSLYN Sodium Chloride () 10 - 40 ml IV UD PRN PRN Reason: Port-a-Cath (VAD) Flush Sodium Chloride (0.9% Nacl (Sterile) Posiflush) 10 - 40 ml IV UD PRN PRN Reason: Port access or dressing change Tuberculin PPD (Tubersol, Aplisol, Ppd) 5 tu ID [id number] ONE Stop: 05/31/19 10:01 Tuberculin PPD (Tubersol, Aplisol, Ppd) 5 tu ID [id number] ONE Stop: 06/07/19 10:01 Assessment/Plan All Active Problems (Last Updated 05/30/19 @ 12:57 by Carol Perry NP-C) Debility (Acute) Fall (Acute) Encephalopathy (Acute) Acute on chronic kidney failure (Acute) Acute on chronic systolic and diastolic heart failure, NYHA class 4 (Acute) Dysphagia (Acute) SYLVIA (acute kidney injury) (Acute) CHF (congestive heart failure) (Acute) Dyspnea (Acute) History of coronary artery stent placement (Resolved 05/21/09) Acute on chronic systolic (congestive) heart failure (Acute) ARF (acute renal failure) (Resolved) Fracture of femoral neck, left (Resolved) Hypertensive emergency (Resolved) Injury of left shoulder and upper arm (Resolved) Pyelonephritis, acute (Resolved) Scalp laceration (Resolved) Chronic diastolic (congestive) heart failure (Ruled-out) 78 year old female with below past medical history hospitalized for acute on chronic systolic diastolic congestive heart failure, complicated by acute on chronic kidney failure, elevated liver enzymes, indeterminate troponin secondary to demand ischemia, admitted to TCU with debility, here for rehabilitation, strengthening, prior to disposition determination. * Debility - PT/OT. * Dysphagia - ST. * Pain - Tylenol 1000MG Q8H. * Bowel - Miralax 17GM daily, Senna/colace 1 tablet BID, Dulcolax 10MG daily PRN, Golytely 1 Liter PO x 1. * Adult immunization - Administer Prevnar 13, Pneumovax 23, Fluzone as appropriate. * DVT prophylaxis - Lovenox 30MG SC daily. * Coronary Artery Disease - Metoprolol 75MG BID, Isosorbide MN 60MG daily, Ranexa 1000MG BID, Aspirin 81MG daily, NTG 0.4MG PRN. * Acute on chronic systolic diastolic heart failure (EF 20%) - Metoprolol 75MG twice daily, Isosorbide MN 60MG daily, Lasix 40MG BID. * Hyperlipidemia - Atorvastatin 20MG QHS. * Glaucoma - Combigan 1GTT OU BID, Xalatan 0.005% 1GTT OU QHS. * Calcium deficiency - Calcium D 1 tablet BID. * Vitamin D deficiency - D3 5000IU daily. * Vitamin B12 deficiency - B12 1000MCG daily. * Allergic Rhinitis - Flonase 1 spray nasal daily. * Macular Degeneration - Healthy Eye 1 tablet BID. * Nutrition - MVI daily. * Hypokalemia - KCL ER 10MEQ QHS. * Anxiety - Rx Citalopram 10MG daily.
[2019-05-30] MEDS: Acetaminophen 500 MG Tablet 1000 MG PO (16:25)
[2019-05-30] MEDS: Calcium Carb/Vitamin D 1 TABLET Tablet PO (18:11)
[2019-05-30] MEDS: Furosemide 40 MG Tablet PO (18:12)
[2019-05-30 18:13] VITALS: PULSE 70
[2019-05-30] MEDS: Metoprolol Tartrate 50 MG Tablet 75 MG PO (18:13)
[2019-05-30] MEDS: Ranolazine 500 MG Tablet 1000 MG PO (18:15)
[2019-05-30] MEDS: Multivitamin (Healthy Eyes) Capsule 1 CAP PO (18:15)
[2019-05-30] MEDS: Senna/Docusate Sodium 1 Tablet PO (18:16)
[2019-05-30 19:20] VITALS: BP 102/70; PULSE 63; RESP 19; O2SAT 96
[2019-05-30 19:51] LABS: Bedside Glucose 162 mg/dL (70-110)
--- NOTE | 2019-05-30 19:59 | NURSING ---
pt alerted by family that pt was choking. Weak choking cough noted by this RN, sats WNL on RA. pt able to answer yes and no questions by shaking her head. pt then had episode of tremors to BUE and eyes blinking quickly. Pt sats then dropped to 60-70% with HR in the 120-130's. pt became pale. pt put on 2L and sats/HR recovered to baseline. pt unresponsive at this time. family at bedside. pt en route to ED for evaluation. Nimo WILSON
--- NOTE | 2019-05-31 09:03 | DCINST_ITS ---
- Discharge Diagnoses Current Active Problems: Current Active and Chronic Problems (Last Updated 05/30/19 @ 12:57 by MICHELLE He) Acute on chronic kidney failure (Acute) Seizure (Acute) Hypoxia (Acute) Aspiration pneumonia (Acute) You will use the following diet at home:: No restrictions, Regular Your food should be the consistency of: Regular Your liquids should be the consistency of: Regular/Thin Discharge Activity: Return to Normal Activity, May Shower, Use Walker Weight Bearing Status: Weight bearing as tolerated Call your doctor if you observe: Fever of 101 or Higher, Inability to urinate, Inability to have a bowel movement, Shortness of breath, Chest pain, Uncontrolled pain Allergies/Adverse Reactions: Allergies adalimumab [From Humira] Allergy (Verified 05/30/19 21:46) Rash ciprofloxacin HCl [From Cipro] Allergy (Verified 05/30/19 21:46) Unknown doxazosin Allergy (Verified 05/30/19 21:46) Other hydroxyzine [From Vistaril] Allergy (Verified 05/30/19 21:46) Other latex Allergy (Verified 05/30/19 21:46) Rash levofloxacin [From Levaquin] Allergy (Verified 05/30/19 21:46) Unknown lisinopril Allergy (Verified 05/30/19 21:46) Other COUGH Methotrexate Analogues Allergy (Verified 05/30/19 21:46) Hives naproxen Allergy (Verified 05/30/19 21:46) Unknown potassium clavulanate [From Augmentin] Allergy (Verified 05/30/19 21:46) Unknown Sulfa (Sulfonamide Antibiotics) Allergy (Verified 05/30/19 21:46) Unknown amlodipine Adverse Reaction (Severe, Verified 05/30/19 21:46) edema haloperidol lactate [From Haldol] Adverse Reaction (Unknown, Verified 05/30/19 21:46) agitation amoxicillin trihydrate [From Augmentin] Adverse Reaction (Verified 05/30/19 21:46) Upset Stomach hydromorphone HCl [From Dilaudid] Adverse Reaction (Verified 05/30/19 21:46) Other HALLUCINATIONS hydroxychloroquine sulfate [From Plaquenil] Adverse Reaction (Verified 05/30/19 21:46) Other VISION ISSUES Medications to take at Discharge Multivit-Min/FA/Lycopen/Lutein [Centrum Silver Tablet] 1 tab PO DAILY 04/01/15 Cholecalciferol (Vitamin D3) [Vitamin D3] 5,000 unit PO DAILY 06/06/18 Cyanocobalamin (Vitamin B-12) [B-12] 1,000 mcg PO DAILY 06/06/18 Vit C/E/Zn/Coppr/Lutein/Zeaxan [Preservision Areds 2 Softgel] 1 cap PO BID 06/06/18 atorvastatin 20 mg tablet 20 mg PO QHS 06/21/18 potassium chloride 10 mEq capsule,extended release 10 meq PO QHS cap 06/21/18 Brimonidine Tartrate/Timolol [Combigan Eye Drops] 1 drp EACH EYE BID 02/13/19 Latanoprost 1 drp EACH EYE QHS 02/13/19 isosorbide mononitrate 60 mg tablet,extended release 24 hr 60 mg PO DAILY tab 02/19/19 Metoprolol Tartrate [Lopressor (beta elena)] 75 mg PO BID 03/20/19 Ranolazine [Ranexa] 1,000 mg PO BID 03/20/19 Acetaminophen [Tylenol] 1,000 mg PO Q8H 04/28/19 Lifitegrast [Xiidra] 1 ea OP BID 04/29/19 fluticasone propionate 50 mcg/actuation nasal spray,suspension 1 spray INTRANASAL DAILY PRN PRN 05/23/19 Calcium Carb/Vitamin D [Caltrate-600 With Vit D Tab] 1 tab PO BIDCM 05/27/19 Nitroglycerin [Nitrostat] 0.4 mg SUBLINGUAL Q5M PRN 05/27/19 Aspirin E.C. [Ecotrin] 81 mg PO DAILY@0800 05/30/19 Furosemide [Lasix] 40 mg PO BID@1000,1800 05/30/19 Primary Care Physician: Demarco Lopez MD [Primary Care Provider] - Please follow up with your Primary Care Physician in: 1 week. Test Results: Test results from this visit will be discussed in further detail at your follow- up appointment, if applicable. Please Follow Up With: Demarco Lopez MD Please Follow Up With: Nahid Hernandez MD When: 1-2 weeks Please Follow Up With: Zeferino Farrar MD When: 1 week after d/c from [facility] Please Follow Up With: Tom Deleon MD When: 1 week after discharge from TCU Proposed Discharge Date: 05/30/19
--- NOTE | 2019-05-31 09:05 | PCM.DC.SUM ---
Discharge Date and Diagnosis - Problem List Patient Problems: Active and Suspected Problems (Last Updated 05/30/19 @ 12:57 by MICHELLE He) Acute on chronic kidney failure (Acute) Seizure (Acute) Hypoxia (Acute) Aspiration pneumonia (Acute) Date of Admission: 05/30/19 Date of Discharge: 05/30/19 - Primary Discharge Diagnosis Active and Suspected Problems (Last Updated 05/30/19 @ 12:57 by MICHELLE He) Acute on chronic kidney failure (Acute) Seizure (Acute) Hypoxia (Acute) Aspiration pneumonia (Acute) - Secondary Discharge Diagnosis Chronic Problems (Last Updated 05/30/19 @ 12:57 by MICHELLE He) Fecal impaction of colon (Chronic) Hypertension (Chronic) Coronary artery disease (Chronic) Hypokalemia (Chronic) Glaucoma (Chronic) Allergic rhinitis (Chronic) Dry eye (Chronic) Claustrophobia (Chronic) Anxiety (Chronic) CHF (congestive heart failure) (Chronic) Lower extremity edema (Chronic) Atherosclerotic heart disease of [place] coronary artery without angina pectoris (Chronic) History of non-ST elevation myocardial infarction (NSTEMI) (Chronic 04/2019) 05/2018, 03/2019, 04/2019 Essential (primary) hypertension (Chronic) Hyperlipemia (Chronic) 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 Discharge to [facility] for evaluation, admission to Hospital. Patient Problems: Active and Suspected Problems (Last Updated 05/30/19 @ 12:57 by MICHELLE He) Acute on chronic kidney failure (Acute) Seizure (Acute) Hypoxia (Acute) Aspiration pneumonia (Acute) - Physical Exam Vitals/I&O's: Vital Signs Temp Pulse Resp BP Pulse Ox 97.4 F L 63 19 H 102/70 96 05/30/19 14:47 05/30/19 19:20 05/30/19 19:20 05/30/19 19:20 05/30/19 19:20 Oxygen Delivery Method Room Air Weight: 45.087 kg Body Mass Index (BMI) 17.0 Intake and Output for Last 24 Hours 05/29/19 05/30/19 05/31/19 23:59 23:59 23:59 Intake Total 120 / 120 Balance 120 / 120 Laboratory Results 05/30/19 19:45: POC Glucose 162 H Discharge Diet: No Restrictions Discharge Activity: Return to Normal Activity, May Shower, Use Walker Weight Bearing Status: Weight bearing as tolerated Call your doctor if you observe: Fever of 101 or Higher, Inability to urinate, Inability to have a bowel movement, Shortness of breath, Chest pain, Uncontrolled pain Home Medications: Medications to take at Discharge Multivit-Min/FA/Lycopen/Lutein [Centrum Silver Tablet] 1 tab PO DAILY 04/01/15 Cholecalciferol (Vitamin D3) [Vitamin D3] 5,000 unit PO DAILY 06/06/18 Cyanocobalamin (Vitamin B-12) [B-12] 1,000 mcg PO DAILY 06/06/18 Vit C/E/Zn/Coppr/Lutein/Zeaxan [Preservision Areds 2 Softgel] 1 cap PO BID 06/06/18 atorvastatin 20 mg tablet 20 mg PO QHS 06/21/18 potassium chloride 10 mEq capsule,extended release 10 meq PO QHS cap 06/21/18 Brimonidine Tartrate/Timolol [Combigan Eye Drops] 1 drp EACH EYE BID 02/13/19 Latanoprost 1 drp EACH EYE QHS 02/13/19 isosorbide mononitrate 60 mg tablet,extended release 24 hr 60 mg PO DAILY tab 02/19/19 Metoprolol Tartrate [Lopressor (beta elena)] 75 mg PO BID 03/20/19 Ranolazine [Ranexa] 1,000 mg PO BID 03/20/19 Acetaminophen [Tylenol] 1,000 mg PO Q8H 04/28/19 Lifitegrast [Xiidra] 1 ea OP BID 04/29/19 fluticasone propionate 50 mcg/actuation nasal spray,suspension 1 spray INTRANASAL DAILY PRN PRN 05/23/19 Calcium Carb/Vitamin D [Caltrate-600 With Vit D Tab] 1 tab PO BIDCM 05/27/19 Nitroglycerin [Nitrostat] 0.4 mg SUBLINGUAL Q5M PRN 05/27/19 Aspirin E.C. [Ecotrin] 81 mg PO DAILY@0800 05/30/19 Furosemide [Lasix] 40 mg PO BID@1000,1800 05/30/19 Primary Care Physician: Demarco Lopez MD [Primary Care Provider] - Please follow up with your Primary Care Physician in: 1 week. Please Follow Up With: Demarco Lopez MD Please Follow Up With: Nahid Hernandez MD When: 1-2 weeks Please Follow Up With: Zeferino Farrar MD When: 1 week after d/c from TCU Please Follow Up With: Tom Deleon MD When: 1 week after discharge from TCU Disposition: Acute care Hospital Minutes spent on discharge:: 30 Patient Condition:: Guarded Medical Necessity - Tobacco Use Smoking Status: Never smoker Tobacco Use: Non-smoker Meaningful Use Info Meaningful Use Diagnoses (Choose all that apply): None applicable
--- NOTE | 2019-06-02 16:07 | CASEMGMT ---
Social Work Reviewed and agreed with social work electrical intern documentation on this date. Twila Gutierres, BUSINESS DIRECTOR TITLE 1 TUTOR
== END 2019-05-30 20:30 | disposition short-term general hospital (02) | DRG 291 ==
LOC: TCU 15:33
PROVIDERS: Admitting Provider Family Medicine Geriatric Medicine; PCP Family Medicine; Referring Provider Family Medicine Geriatric Medicine; Visit Provider Family Medicine Geriatric Medicine
DX: I13.0 Hypertensive heart and chronic kidney disease with heart failure and stage 1 through stage 4 chronic kidney disease, or unspecified chronic kidney disease (principal); I50.43 Acute on chronic combined systolic (congestive) and diastolic (congestive) heart failure; J69.0 Pneumonitis due to inhalation of food and vomit; N18.3 Chronic kidney disease, stage 3 (moderate); I25.10 Atherosclerotic heart disease of native coronary artery without angina pectoris; E78.5 Hyperlipidemia, unspecified; H40.9 Unspecified glaucoma; F40.240 Claustrophobia; E87.6 Hypokalemia; D50.9 Iron deficiency anemia, unspecified; R29.6 Repeated falls; I25.2 Old myocardial infarction; M06.9 Rheumatoid arthritis, unspecified; E55.9 Vitamin D deficiency, unspecified
CPT/HCPCS: 82962

== ENCOUNTER 2019-05-30 19:57 | Inpatient (IN) | payer MEDICARE, SELFPAY ==
[2019-05-30] VITALS (13 sets, daily range): BP systolic 108–138; BP diastolic 39–75; PULSE 52–88; RESP 12–23; TEMP 36.7–36.8; O2SAT 96–110; BMI 17.0; BMI 19.8; BMI 18.6; BMI 18.7
[2019-05-30] MEDS: LORazepam 2 MG/ML Syringe 1 MG IV (20:10)
--- NOTE | 2019-05-30 20:12 | CT_ITS ---
STUDY: CT BRAIN WITHOUT CONTRAST REASON FOR EXAM: Female, 78 years old. SEIZURES. Hx of CAD with heart stents, HTN and HLD RADIATION DOSAGE (If Supplied By Facility): CTDIvol = ( 44.99 ) mGy, DLP = ( 779.24 ) mGycm TECHNIQUE: Transaxial CT imaging of the brain was performed without administration of intravenous contrast material. Individualized dose optimization techniques were used for this CT. COMPARISON: 05/27/2019 FINDINGS: Normal soft tissue structures. Normal calvarium. There is mild cerebral atrophy with widening of the extra-axial spaces and ventricular dilatation. There are areas of decreased attenuation within the white matter tracts of the supratentorial brain, consistent with microvascular disease changes. Normal basal ganglia and thalami. Normal brainstem. There is mild cerebellar atrophy. There is no intracranial hemorrhage. There are no findings of an acute ischemic infarction. Normal visualized paranasal sinuses. CT/Brain/Head without Contrast IMPRESSION: Chronic involutional changes of the brain. No change and no acute abnormality. Electronically Signed: Blu Freitas MD at 20:33 EST , Service support ,
--- NOTE | 2019-05-30 20:12 | EKG12_ITS ---
Test Reason : DYSRHYTHMIA Blood Pressure : / mmHG Vent. Rate : 062 BPM Atrial Rate : 062 BPM P-R Int : 162 ms QRS Dur : 184 ms QT Int : 522 ms P-R-T Axes : 023 -71 060 degrees QTc Int : 529 ms Normal sinus rhythm Left atrial enlargement Right bundle branch block Left anterior fascicular block Bifascicular block Abnormal ECG Confirmed by JEROME HUGHES ([id number]), editorial cartoonist ROMAIN DIAL ([id number]) on 06/02/2019 3:37:55 PM Referred By: TIFFANY Confirmed By:JEROME HUGHES
--- NOTE | 2019-05-30 20:21 | ED.VIS.GEN ---
History of Present Illness Chief Complaint: Alt LOC Informant: Family Limited by: - - Unresponsiveness Onset: Today Context: Sudden Onset Timing: Intermittent Narrative: Patient is a 78-year-old female with extensive medical history including stage IV systolic/diastolic heart failure, chronic kidney disease, encephalopathy, hypertension, dysphasia and coronary artery disease presenting after an episode of unresponsiveness in the TCU. Patient was there because of her debility. She was crying as she was taken by to her son and then started shaking all over and her pulse ox dropped into the low 60s. Patient seemed postictal after this. She was transferred to the emergency room for evaluation after rapid response was called. Of when patient arrived emergency room she had another episode of seizures. Patient not have any known seizure activity. Past Medical History - Allergies and Home Meds Allergies/Adverse Reactions: Allergies adalimumab [From Humira] Allergy (Verified 05/30/19 21:46) Rash ciprofloxacin HCl [From Cipro] Allergy (Verified 05/30/19 21:46) Unknown doxazosin Allergy (Verified 05/30/19 21:46) Other hydroxyzine [From Vistaril] Allergy (Verified 05/30/19 21:46) Other latex Allergy (Verified 05/30/19 21:46) Rash levofloxacin [From Levaquin] Allergy (Verified 05/30/19 21:46) Unknown lisinopril Allergy (Verified 05/30/19 21:46) Other COUGH Methotrexate Analogues Allergy (Verified 05/30/19 21:46) Hives naproxen Allergy (Verified 05/30/19 21:46) Unknown potassium clavulanate [From Augmentin] Allergy (Verified 05/30/19 21:46) Unknown Sulfa (Sulfonamide Antibiotics) Allergy (Verified 05/30/19 21:46) Unknown amlodipine Adverse Reaction (Severe, Verified 05/30/19 21:46) edema haloperidol lactate [From Haldol] Adverse Reaction (Unknown, Verified 05/30/19 21:46) agitation amoxicillin trihydrate [From Augmentin] Adverse Reaction (Verified 05/30/19 21:46) Upset Stomach hydromorphone HCl [From Dilaudid] Adverse Reaction (Verified 05/30/19 21:46) Other HALLUCINATIONS hydroxychloroquine sulfate [From Plaquenil] Adverse Reaction (Verified 05/30/19 21:46) Other VISION ISSUES Past Medical History: - - stage IV systolic/diastolic heart failure, chronic kidney disease, encephalopathy, hypertension, dysphasia and coronary artery disease Surgical History: angioplasty, total hip arthroplasty - Bilateral, - - Carpal tunnel surgery. Smoking Status: Never smoker - Family History Paternal Family History: Family History (Last Reviewed 05/23/19 @ 11:50 by Liudmila Byrd) Father No problems noted. Family History: Reports: Heart Disease Maternal Family History: Family History (Last Reviewed 05/23/19 @ 11:50 by Liudmila Byrd) Father No problems noted. Family History: Reports: Cancer - Mother with history of breast cancer. Review of Systems ROS: Unable to Obtain - unresponsive Physical Exam Vital Signs/Narrative: Vital Signs Temp Pulse Resp BP Pulse Ox 05/30/19 20:04 67 23 H 100 05/30/19 19:58 98.0 F 61 17 114/75 100 Inital Vital Signs reviewed: Yes General: Well developed, Cachectic Head: Normocephalic, Atraumatic. Negative for: Trauma Eyes: Perrl, EOMI ENT: TM's clear, Dry mucous membranes Neck: Supple, Nontender, No lymphadenopathy, - - JVD Cardiovascular: Regular rate, Regular rhythm, No murmurs Respiratory: No distress, Chest nontender, Rhonchi - bilateral Abdomen: Soft, Nontender, Nondistended Extremities: Nontender, No edema Skin: Normal color, No rash Neurological: Cranial nerves II-XII grossly intact, Lethargic, - - Patient independently moving all extremities, follows simple commands. Appears to be postictal. Diagnostic/Tx/Re-eval Chest X-Ray - ED: 1 View, Read by ED Physician, Read by Radiologist, Chronic Changes, Cardiomegaly, CHF, Right Effusion, Left Effusion Clinical Impression(s) from Imaging Studies Brain CT 05/30/19 20:12 IMPRESSION: Chronic involutional changes of the brain. No change and no acute abnormality. Electronically Signed: Blu Freitas MD at 20:33 EST , Service support , Chest X-Ray 05/30/19 20:24 IMPRESSION: Probable diffuse congestion and interstitial edema. Probable bilateral atelectasis or infiltrate in both lung bases worse on the right. Probable bilateral [id number] pleural effusions. Electronically Signed: Blu Freitas MD at 20:40 EST , Service support , Laboratory Data 05/30/19 05/30/19 05/30/19 20:10 20:10 20:10 WBC 14.8 H RBC 2.89 L Hgb 10.0 L Hct 32.1 L MCV 111.1 H MCH 34.6 H MCHC 31.2 L RDW Std Deviation 78.9 H RDW Coeff of Myke 20.1 H Plt Count 223 MPV 13.1 H Immature Gran % (Auto) 0.900 Neut % (Auto) 74.4 H Lymph % (Auto) 14.2 L [place] % (Auto) 9.3 Eos % (Auto) 0.9 Baso % (Auto) 0.3 Absolute Neuts (auto) 11.0 H Absolute Lymphs (auto) 2.10 Nucleated RBC % 0.4 Differential Comment SCANNED PT 18.8 H INR 1.6 APTT 45.0 H Sodium 138 Potassium 4.9 Chloride 103 Carbon Dioxide 25.0 Anion Gap 10 BUN 77 H Creatinine 3.02 H Estim Creat Clear Calc 12.11 Est GFR (MDRD) Af Amer 19 L Est GFR (MDRD) Non-Af 16 L BUN/Creatinine Ratio 25.5 H Glucose 155 H Calcium 8.3 L Magnesium Total Bilirubin 0.70 AST 109 H ALT 126 H Alkaline Phosphatase 162 H Troponin I 0.113 H Total Protein 7.0 Albumin 2.5 L Globulin 4.5 H Albumin/Globulin Ratio 0.6 L TSH Urine Color Urine Clarity Urine pH Ur Specific [place] Urine Protein Urine Glucose (UA) Urine Ketones Urine Occult Blood Urine Nitrite Urine Bilirubin Urine Urobilinogen Ur Leukocyte Esterase Urine RBC Urine WBC Ur Squamous Epith Cells Urine Bacteria Urine Mucus 05/30/19 05/30/19 20:10 20:55 WBC RBC Hgb Hct MCV MCH MCHC RDW Std Deviation RDW Coeff of Myke Plt Count MPV Immature Gran % (Auto) Neut % (Auto) Lymph % (Auto) [place] % (Auto) Eos % (Auto) Baso % (Auto) Absolute Neuts (auto) Absolute Lymphs (auto) Nucleated RBC % Differential Comment PT INR APTT Sodium Potassium Chloride Carbon Dioxide Anion Gap BUN Creatinine Estim Creat Clear Calc Est GFR (MDRD) Af Amer Est GFR (MDRD) Non-Af BUN/Creatinine Ratio Glucose Calcium Magnesium 2.6 Total Bilirubin AST ALT Alkaline Phosphatase Troponin I Total Protein Albumin Globulin Albumin/Globulin Ratio TSH 4.29 H Urine Color Naheed Urine Clarity Sl Cldy Urine pH 5.0 Ur Specific [place] 1.020 Urine Protein 100 H Urine Glucose (UA) Normal Urine Ketones 5 H Urine Occult Blood 10 H Urine Nitrite Negative Urine Bilirubin 1 H Urine Urobilinogen 1 H Ur Leukocyte Esterase 100 H Urine RBC 0-5 SEEN Urine WBC 5-10 SEEN Ur Squamous Epith Cells 0-5 SEEN Urine Bacteria 0 SEEN Urine Mucus 0 SEEN - Rhythm Strip Rhythm Strip: Sinus Rhythm Rate: 62 Ectopy: None - EKG Initial EKG Interpretation: Sinus Rhythm, - - Normal sinus rhythm at a rate of 62 NJ interval 162 QRS 182 QTc 529 Left axis deviation Right bundle branch block as well as left anterior fascicular block Compared to prior EKG on 05/28/2019 patient has no dynamic changes - Medical Decision Making Patient is evaluated for an episode of seizure-like activity and unresponsiveness. She also was transiently hypoxic. In the ER patient has 2 more small episodes of seizure activity witnessed by the nurses, each lasting 10 to 15 seconds. Patient is then given 1 mg of IV Ativan. After that she has no further seizure episodes. She is loaded with IV Keppra. CT of the brain does not show any acute intracranial process. Patient has slightly worsening of her chronic kidney disease, likely from her overdiuresis. She does appear clinically dehydrated on exam. Patient is having minimal O2 requirements. Patient is a mild leukocytosis. I am not sure if this is secondary to a developing pneumonia versus her recent seizure. Patient is currently being treated for CHF exacerbation in the TCU with Lasix. Patient is her Vanco Zosyn by admitting physician. Patient's troponin is indeterminately elevated. This to be monitored. I suspect this might be from her recent episode of hypoxia. Patient does not have any dynamic EKG changes. Patient does have mild improvement of her neurologic status while in the emergency room however she does not become fully alert and oriented. She admitted to the ICU for further neurologic evaluation and monitoring. Family is agreeable this plan. ED Disposition - Plan for ED Patient: Disposition: Acute Care Hospital [facility] Diagnosis: Hypoxia, Seizure, Acute on chronic kidney failure, Aspiration pneumonia
--- NOTE | 2019-05-30 20:24 | RAD_ITS ---
STUDY: X-RAY CHEST REASON FOR EXAM: Female, 78 years old. Altered level of consciousness. TECHNIQUE: Single AP portable view of the chest. COMPARISON: 05/28/2019. FINDINGS: Left Mediport catheter terminates in the right atrium. Bilateral diffuse pulmonary density suggestive of congestion/interstitial edema and probable pleural effusions. Prominent increased density in both lung bases consistent with atelectasis or infiltrate along with pleural effusions. Mild cardiomegaly. Deformity of the proximal left humerus consistent with previous fracture. RAD/Chest 1 View (Portable) IMPRESSION: Probable diffuse congestion and interstitial edema. Probable bilateral atelectasis or infiltrate in both lung bases worse on the right. Probable bilateral [id number] pleural effusions. Electronically Signed: Blu Freitas MD at 20:40 EST , Service support ,
[2019-05-30 20:40] LABS: International Normalized Ratio 1.6; Prothrombin Time (Protime)PT. 18.8 SECONDS (11.7-14.9)
[2019-05-30 20:48] LABS: ALB/GLOB Ratio 0.6 RATIO (0.9-2.4); AST(SGOT) 109 U/L (15-37); Alanine Aminotransfer ALT/SGPT 126 U/L (13-56); Albumin, Serum 2.5 g/dL (3.2-5.0); Alkaline Phosphatase 162 U/L (45-117); Anion Gap 10 (5-15); BUN 77 mg/dL (7-18); BUN/Creat Ratio 25.5 RATIO (10-20); Calcium,Total 8.3 mg/dL (8.5-10.1); Chloride 103 mmol/L (98-107); Creatinine, Serum 3.02 mg/dL (0.55-1.02); EST Glomerular Filtration Rate 16 mL/min (>60); Est Glom Filt Rate - Afr Amer 19 mL/min (>60); Estimated Creatinine Clearance 12.11 ml/min; Globulin 4.5 g/dL (2.2-4.2); Glucose 155 mg/dL (74-106); Potassium 4.9 mmol/L (3.5-5.1); Sodium Level 138 mmol/L (136-145)
[2019-05-30] MEDS: levETIRAcetam IV 1,000 MG/100 ML BAG 400 MG IV (20:49)
[2019-05-30 20:53] LABS: Basophil# 0.04 X10^3/uL; Basophil% 0.3 % (0-1); Eosinophil# 0.13 X10^3/uL; Eosinophils% 0.9 % (0-5); Hematocrit 32.1 % (37-47); Lymphocyte % 14.2 % (19-41); Mean Corp Hgb Conc 31.2 g/dL (32-36); Mean Corpuscular Hgb 34.6 pg (27.0-32.0); Mean Corpuscular Volume 111.1 fL (81-99); Mean Platelet Vol. 13.1 fl (6.2-12.0); Monocyte# 1.38 X10^3/uL; Monocyte% 9.3 % (0-10); NRBC Flagged by Analyzer 0.4 % (0-5); Neutrophil % 74.4 % (47-70); POSITIVE MORPHOLOGY YES; Platelet Count 223 K/mm3 (150-450); RBC Distribution Width CV 20.1 % (11.6-14.6); RBC Distribution Width SD 78.9 fl (35.1-43.9); Red Blood Count 2.89 M/mm3 (4.2-5.4); White Blood Count 14.8 K/mm3 (4.4-11.0)
--- NOTE | 2019-05-30 20:57 | ED.RN ---
pt arrived to room from TCU at 1954. pt had seizure activity at 1999 for 20 seconds, VS: BP: 114/75, SpO2: 100% 2.5 L, HR: 61, R: 17. ER notified. Dr. German took over care. Ativan 1 mg given at 2009 by Frank Sewell RN. pt has second seizure like activity at 2009 for 10 seconds HR 88, SpO2: 100% 2.5 L. after episode, this nurse instructed pt to grasp hands, pt was able to squeeze right hand but very weak. pt remains with eyes closed and non-verbal since arrival to ED. Catheter placed at 2039, pt was able to move legs slightly independently but could not follow directions. another seizure like activity occurred at 2044 lasting 10 seconds. pt HR 80 SpO2: 100% on 2L. Keppra IV started at 2048. pt now resting at 2099. Niece at bedside, and other family members in waiting room.
[2019-05-30 20:59] LABS: Differential Indicated SCAN CRITERIA MET
[2019-05-30 21:02] LABS: Bacteria 0 SEEN /hpf (None Seen); Mucous, Urine 0 SEEN /hpf (<or=2+)
[2019-05-30 21:09] LABS: Color, Urine Amber (Yellow); Glucose, Dipstick Normal (Normal); Ketone-Dipstick 5 mg/dl (Negative); Leukocyte Esterase-Dipstick 100 /ul (Negative); Nitrite-Dipstick Negative (Negative); Occult Blood-Urine 10 /ul (Negative); Protein-Dipstick 100 mg/dl (Negative); Urine Urobilinogen 1 mg/dl (Normal)
[2019-05-30 21:10] LABS: Urine Bilirubin Dipstick 1 mg/dL (Negative)
[2019-05-30 21:15] LABS: Red Blood Cells-Urine 0-5 SEEN /hpf (0-5); Squamous Epithelial Cells - UA 0-5 SEEN /hpf (5-10); Urine Clarity Sl Cldy (Clear); White Blood Cells 5-10 SEEN /hpf (0-5)
[2019-05-30 21:16] LABS: Differential Comment SCANNED
--- NOTE | 2019-05-30 21:17 | PCM.HP.STD ---
Problem List (1) Seizure Status: Acute (2) Hypoxia Status: Acute (3) Aspiration pneumonia Status: Acute Qualifiers: Aspiration pneumonia type: unspecified Laterality: unspecified laterality Lung location: unspecified part of lung Qualified Code(s): J69.0 - Pneumonitis due to inhalation of food and vomit (4) Encephalopathy Status: Acute (5) Acute on chronic kidney failure Status: Acute Qualifiers: Acute renal failure type: unspecified Chronic kidney disease stage: stage 3 (moderate) Qualified Code(s): N17.9 - Acute kidney failure, unspecified; N18.3 - Chronic kidney disease, stage 3 (moderate) (6) Coronary artery disease Status: Chronic Qualifiers: Coronary Disease-Associated Artery/Lesion type: unspecified vessel or lesion type [place] vs. transplanted heart: unspecified whether [place] or transplanted heart Associated angina: angina presence unspecified Qualified Code(s): I25.10 - Atherosclerotic heart disease of [place] coronary artery without angina pectoris (7) CHF (congestive heart failure) Status: Chronic Qualifiers: Heart failure type: combined systolic and diastolic Heart failure chronicity: chronic Qualified Code(s): I50.42 - Chronic combined systolic (congestive) and diastolic (congestive) heart failure (8) Atherosclerotic heart disease of [place] coronary artery without angina pectoris Status: Chronic Qualifiers: [place] vs. transplanted heart: [place] heart Qualified Code(s): I25.10 - Atherosclerotic heart disease of [place] coronary artery without angina pectoris (9) Essential (primary) hypertension Status: Chronic (10) Hyperlipemia Status: Chronic Qualifiers: Hyperlipidemia type: unspecified Qualified Code(s): E78.5 - Hyperlipidemia, unspecified (11) Iron deficiency anemia Status: Chronic Qualifiers: Iron deficiency anemia type: unspecified iron deficiency History of Present Illness Date of Admission: 05/30/19 Chief Complaint: Mental status change, hypoxia, new onset seizure The patient is a 78 y/o F w/ PMHx: Chronic anemia, Chronic Systolic/Diastolic CHF, HTN, HLD, Hx NSTEMI, CAD s/p PCI NIGHAT RCA, CKD stage III, Rheumatoid arthritis, Sjogren's disease recently discharged following admission on 05/27/19 w/ transition to TCU following treatment for acute on chronic diastolic CHF exacerbation, SYLVIA on CKD stage IV, elevated troponin felt secondary to demand ischemia who now re-presents to the [facility] ED on 05/30/19 following rapid response call on TCU w/ possible seizure episode per family followed by suspected aspiration event with significant confusion and transient hypoxia following w/ following transition to the ED, episode of confirmed new onset seizures, specifically 10-20 seconds of tonic clonic with ongoing postictal phase. Work-up in the ED included T 98, heart rate 61, BP 114/75, respiratory rate 17, under percent on 2.5 L nasal cannula, CBC w/ WBC 14.8, Hgb 10, Plts 223 with L shift, coags w/ INR 1.6, PT 18.8, PTT 45, CMP w/ BUN/creatinine 77/3.02, glucose 155, AST/ALT 109/126, alk phos 162, troponin 0 0.113, urinalysis with evidence of dehydration with specific gravity 1.020, protein 100, ketones 5, occult blood 10, negative nitrite, 100 leukocyte esterase, 5-10 WBCs but no urine bacteria, CXR with diffuse congestion and interstitial edema, probable bilateral atelectasis or infiltrate in both lung bases, worse on the right, probably BL small to moderate pleural effusions, CT head with chronic involution changes with no acute findings. Past Medical History Past Medical History (Chronic Problems): Chronic Problems (Last Updated 05/30/19 @ 12:57 by MICHELLE He) Fecal impaction of colon (Chronic) Hypertension (Chronic) Coronary artery disease (Chronic) Hypokalemia (Chronic) Glaucoma (Chronic) Allergic rhinitis (Chronic) Dry eye (Chronic) Claustrophobia (Chronic) Anxiety (Chronic) CHF (congestive heart failure) (Chronic) Lower extremity edema (Chronic) Atherosclerotic heart disease of [place] coronary artery without angina pectoris (Chronic) History of non-ST elevation myocardial infarction (NSTEMI) (Chronic 04/2019) 05/2018, 03/2019, 04/2019 Essential (primary) hypertension (Chronic) Hyperlipemia (Chronic) 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) Iron deficiency anemia (Chronic) Recurrent falls (Chronic) Medical History: Medical History (Last Updated 05/30/19 @ 12:57 by Carol Perry NP-Sg) Lower extremity edema (Chronic) R60.0 Atherosclerotic heart disease of [place] coronary artery without angina pectoris (Chronic) I25.10 History of non-ST elevation myocardial infarction (NSTEMI) (Chronic) Onset Date: 04/2019 I25.2 05/2018, 03/2019, 04/2019 Acute on chronic systolic (congestive) heart failure (Acute) I50.23 Essential (primary) hypertension (Chronic) I10 Hyperlipemia (Chronic) E78.5 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) I45.2 Iron deficiency anemia (Chronic) D50.9 Recurrent falls (Chronic) R29.6 Anemia D64.9 Chronic kidney disease, stage 3 (moderate) N18.3 Chronic renal insufficiency N18.9 Closed fracture of left inferior pubic ramus S32.592A History of Sjogren's disease Z87.39 Rheumatoid arthritis M06.9 ARF (acute renal failure) (Resolved) GI bleed K92.2 Pleural effusion, left J90 Syncope and collapse R55 Chronic diastolic (congestive) heart failure (Ruled-out) I50.32 Diastolic dysfunction (Inactive) I51.9 Left ventricular hypertrophy (Inactive) I51.7 Allergies adalimumab [From Humira] Allergy (Verified 05/27/19 14:49) Rash ciprofloxacin HCl [From Cipro] Allergy (Verified 05/27/19 14:49) Unknown doxazosin Allergy (Verified 05/27/19 14:49) Other hydroxyzine [From Vistaril] Allergy (Verified 05/27/19 14:49) Other latex Allergy (Verified 05/27/19 14:49) Rash levofloxacin [From Levaquin] Allergy (Verified 05/27/19 14:49) Unknown lisinopril Allergy (Verified 05/27/19 14:49) Other COUGH Methotrexate Analogues Allergy (Verified 05/27/19 14:49) Hives naproxen Allergy (Verified 05/27/19 14:49) Unknown potassium clavulanate [From Augmentin] Allergy (Verified 05/27/19 14:49) Unknown Sulfa (Sulfonamide Antibiotics) Allergy (Verified 05/27/19 14:49) Unknown amlodipine Adverse Reaction (Severe, Verified 05/27/19 14:49) edema haloperidol lactate [From Haldol] Adverse Reaction (Unknown, Verified 05/27/19 14:49) agitation amoxicillin trihydrate [From Augmentin] Adverse Reaction (Verified 02/11/20 14:49) Upset Stomach hydromorphone HCl [From Dilaudid] Adverse Reaction (Verified 05/27/19 14:49) Other HALLUCINATIONS hydroxychloroquine sulfate [From Plaquenil] Adverse Reaction (Verified 05/27/19 14:49) Other VISION ISSUES Home Medications: Ambulatory Orders Medication Instructions Recorded Multivit-Min/FA/Lycopen/Lutein 1 tab PO DAILY 04/01/15 [Centrum Silver Tablet] Cholecalciferol (Vitamin D3) 5,000 unit PO DAILY 06/06/18 [Vitamin D3] Cyanocobalamin (Vitamin B-12) 1,000 mcg PO DAILY 06/06/18 [B-12] Vit C/E/Zn/Coppr/Lutein/Zeaxan 1 cap PO BID 06/06/18 [Preservision Areds 2 Softgel] atorvastatin 20 mg tablet 20 mg PO QHS 06/21/18 potassium chloride 10 mEq 10 meq PO QHS cap 06/21/18 capsule,extended release Brimonidine Tartrate/Timolol 1 drp EACH EYE BID 02/13/19 [Combigan Eye Drops] Latanoprost 1 drp EACH EYE QHS 02/13/19 isosorbide mononitrate 60 mg 60 mg PO DAILY tab 02/19/19 tablet,extended release 24 hr Metoprolol Tartrate [Lopressor 75 mg PO BID 03/20/19 (beta elena)] Ranolazine [Ranexa] 1,000 mg PO BID 03/20/19 Acetaminophen [Tylenol] 1,000 mg PO Q8H 04/28/19 Lifitegrast [Xiidra] 1 ea OP BID 04/29/19 fluticasone propionate 50 1 spray INTRANASAL DAILY PRN PRN 05/23/19 mcg/actuation nasal spray,suspension Calcium Carb/Vitamin D 1 tab PO BIDCM 05/27/19 [Caltrate-600 With Vit D Tab] Nitroglycerin [Nitrostat] 0.4 mg SUBLINGUAL Q5M PRN 05/27/19 Aspirin E.C. [Ecotrin] 81 mg PO DAILY@0800 05/30/19 Furosemide [Lasix] 40 mg PO BID@1000,1800 05/30/19 Surgical History: Surgical History (Last Reviewed 05/23/19 @ 11:50 by Liudmila Byrd) History of coronary artery stent placement (Resolved) Onset Date: 05/21/09 Z95.5 PCI-NIGHAT-RCA w/ 2.5 x 28 mm Promus Stent x 2, NIGHAT-Ramus w/ 2.25 x 20 Taxus Stent 05/21/2009 History of carpal tunnel release Z98.890 History of left heart catheterization Onset Date: 06/07/18 Z98.890 History of left hip replacement Z96.642 History of right hip hemiarthroplasty Z96.641 Surgical History: angioplasty, total hip arthroplasty - Bilateral, - - Carpal tunnel surgery. Psychiatric History: Anxiety VP DATA History: No pertinent VP DATA history Lives: Prison Smoking Status: Never smoker Tobacco Use: Non-smoker Alcohol: None Drugs: None - *Family History Paternal Family History: Family History (Last Reviewed 05/23/19 @ 11:50 by Liudmila Byrd) Father No problems noted. History Items: Heart Disease Maternal Family History: Family History (Last Reviewed 05/23/19 @ 11:50 by Liudmila Byrd) Father No problems noted. History Items: Cancer - Mother with history of breast cancer. Review of Systems Constitutional: Denies: Chills, Fever, Weight Change HEENT: Denies: Head Aches, Sinus Congestion, Sinus Drainage Cardiovascular: Denies: Chest Pain, Palpitations Respiratory: Denies: Cough, Shortness of breath at rest, Sputum production Gastrointestinal: Denies: Abdominal Pain, Nausea, Vomiting Genitourinary: Denies: Dysuria Musculoskeletal: Denies: Joint Pain, Joint Tenderness Skin: Denies: Rash, Wounds Neurological: Denies: Numbness, Tingling, Focal weakness Psychiatric: Denies: Anxiety, Depression, Homicidal Ideations, Suicidal Ideations Hematologic/ Lymphatic: Denies: Easy Bruising, Easy Bleeding Unable to obtain accurate/complete ROS d/t: Patient unable to give ROS secondary to encephalopathic state, s/p seizure VTE Information - Inpt Only VTE Present on Admission: No VTE Mechan Device Prophylaxis: SCD's VTE Pharm Prophylaxis ordered?: Yes Patient Problems: Active and Suspected Problems (Last Updated 05/30/19 @ 12:57 by Carol Perry NP-C) Seizure (Acute) Hypoxia (Acute) Aspiration pneumonia (Acute) Subjective: Seated upright in the ED bed, encephalopathic, still postictal, responsive to painful stimuli but not interactive. Objective: Physical Examination: General: Patient not alert, responsive to painful stimuli but not oriented, unable to follow any commands, still postictal, seated upright in the bed, lethargic. Skin: normal color, turgor, no icterus, cyanosis. HEENT: AT/NC, EOM unable to be assessed given presentation, PERRLA, dry MM, no carotid bruits or JVD noted. Lungs: Diminished breath sounds bilaterally, mildly coarse bases, mildly rhonchorous, no obvious specific rales, no wheezing. Heart: Regular rate and rhythm; no gallop, rub audible. Abdomen: soft, thin habitus, NTTP, ND, normal BS, no HSM. Extremities: no cyanosis, clubbing, or edema. Neurological: Patient not alert, responsive to painful stimuli but not oriented, unable to follow any commands, still postictal, seated upright in the bed, lethargic; cognitive function not baseline intact; pupils equally reactive to light and accomodation; able to assess cranial nerves well given acute presentation, moving extremities to painful stimuli, lethargic, postictal status post recent witnessed seizures. Psychiatric: affect appears, lethargic, no acute evidence of depressive or anxiety feelings. - Physical Exam Vitals/I&O's: Vital Signs Temp Pulse Resp BP Pulse Ox 98.0 F 80 16 126/59 H 100 05/30/19 19:58 05/30/19 20:45 05/30/19 20:45 05/30/19 20:45 05/30/19 20:45 Oxygen Flow Rate (L/min) 2 Oxygen Delivery Method Nasal Cannula Weight: 111 lb 15.917 oz Body Mass Index (BMI) 19.8 Laboratory Results 05/30/19 20:10: WBC 14.8 H, RBC 2.89 L, Hgb 10.0 L, Hct 32.1 L, MCV 111.1 H, MCH 34.6 H, MCHC 31.2 L, RDW Std Deviation 78.9 H, RDW Coeff of [place] 20.1 H, Plt Count 223, MPV 13.1 H, Immature Gran % (Auto) 0.900, Neut % (Auto) 74.4 H, Lymph % (Auto) 14.2 L, [place] % (Auto) 9.3, Eos % (Auto) 0.9, Baso % (Auto) 0.3, Absolute Neuts (auto) 11.0 H, Absolute Lymphs (auto) 2.10, Nucleated RBC % 0.4, Differential Comment SCANNED 05/30/19 20:10: PT 18.8 H, INR 1.6, APTT 45.0 H 05/30/19 20:10: Sodium 138, Potassium 4.9, Chloride 103, Carbon Dioxide 25.0, Anion Gap 10, BUN 77 H, Creatinine 3.02 H, Estim Creat Clear Calc 12.11, Est GFR (MDRD) Af Amer 19 L, Est GFR (MDRD) Non-Af 16 L, BUN/Creatinine Ratio 25.5 H, Glucose 155 H, Calcium 8.3 L, Total Bilirubin 0.70, AST 109 H, ALT 126 H, Alkaline Phosphatase 162 H, Troponin I 0.113 H, Total Protein 7.0, Albumin 2.5 L, Globulin 4.5 H, Albumin/Globulin Ratio 0.6 L 05/30/19 20:55: Urine Color Naheed, Urine Clarity Sl Cldy, Urine pH 5.0, Ur Specific [place] 1.020, Urine Protein 100 H, Urine Glucose (UA) Normal, Urine Ketones 5 H, Urine Occult Blood 10 H, Urine Nitrite Negative, Urine Bilirubin 1 H, Urine Urobilinogen 1 H, Ur Leukocyte Esterase 100 H, Urine RBC 0-5 SEEN, Urine WBC 5-10 SEEN, Ur Squamous Epith Cells 0-5 SEEN, Urine Bacteria 0 SEEN, Urine Mucus 0 SEEN Current Medications Sodium Chloride () 500 mls @ 150 mls/hr IV .Q3H20M JOSLYN Stop: 05/30/19 23:34 Last Admin: 05/30/19 20:51 Dose: 150 mls/hr Documented by: Assessment/Plan All Active Problems (Last Updated 05/30/19 @ 12:57 by Carol Perry NP-C) Debility (Acute) Fall (Acute) Encephalopathy (Acute) Acute on chronic kidney failure (Acute) Acute on chronic systolic and diastolic heart failure, NYHA class 4 (Acute) Dysphagia (Acute) Seizure (Acute) Hypoxia (Acute) Aspiration pneumonia (Acute) Dyspnea (Acute) History of coronary artery stent placement (Resolved 05/21/09) Acute on chronic systolic (congestive) heart failure (Acute) ARF (acute renal failure) (Resolved) Fracture of femoral neck, left (Resolved) Hypertensive emergency (Resolved) Injury of left shoulder and upper arm (Resolved) Pyelonephritis, acute (Resolved) Scalp laceration (Resolved) Chronic diastolic (congestive) heart failure (Ruled-out) The patient is a 78 y/o F w/ PMHx: Chronic anemia, Chronic Systolic/Diastolic CHF, HTN, HLD, Hx NSTEMI, CAD s/p PCI NIGHAT RCA, CKD stage III, Rheumatoid arthritis, Sjogren's disease recently discharged following admission on 05/27/19 w/ transition to TCU following treatment for acute on chronic diastolic CHF exacerbation, SYLVIA on CKD stage IV, elevated troponin felt secondary to demand ischemia who now re-presents to the [facility] ED on 05/30/19 following rapid response call on TCU w/ possible seizure episode per family followed by suspected aspiration event with significant confusion and transient hypoxia following w/ following transition to the ED, episode of confirmed new onset seizures. 1. Acute Encephalopathy, Multifactorial, secondary to New-onset seizure, #2: Seizure witnessed with postictal state. Improved mental status in the emergency room. CT head without acute intracranial pathology. Will admit to ICU, maintain on telemetry on seizure precautions, obtain EEG, obtain brain MRI, obtain TSH. Will place on Keppra IV 100 mg twice daily, loaded with 1000 mg in the ED. We will need to request a.m. neurology consultation. PRN ativan IV for seizure activity. NPO until cleared per RN swallow. 2. Suspected aspiration pneumonia with associated Hypoxia: Patient recent rapid response with noted hypoxia transiently. CXR in the ED w/ diffuse congestion and interstitial edema, bilateral atelectasis and/or infiltrate in both lung bases, more suspected pneumonia given presentation, CBC with WBC trending upwards, significant aspiration event witnessed per family prior to ED presentation, will maintain on oxygen with wean as tolerated to room air, continue ATC duonebs, PRN albuterol, maintained on IV Zosyn and Vancomycin, request speech evaluation, HOB, IS parameters w/ pending sputum cultures and urine antigens. 3. Acute kidney injury: Secondary to likely recent diuresis with CHF presentation. Admission BUN/Cr 77/3.02, prior baseline creatinine noted to be 2.81 but had been on 05/04/2019 2.04 with baseline 1.8-2.2 but trending upwards during recent admission. Will temporarily hold diuresis, gently judiciously hydrate, hold nephrotoxic medications and repeat chemistry in AM. Recent admission with SYLVIA although creatinine has slowly steadily been increasing with renal ultrasound recently performed during recent admission with a 7 mm nonobstructing renal stone, bilateral renal cortical atrophy indicative of medical renal disease. Nephrology was consulted and following during prior admission, may consider reconsultation. 4. Elevated liver functions, unclear etiology: Recent admission with initial presentation AST/ALT 184/148, alk phos 163, most recently on 05/01/19 normal functions, ongiong w05/30/19 AST/ALT 109/126, Alk phos 162, liver ultrasound unremarkable. We will continue to trend. 5. Indeterminate cardiac enzyme: EKG with no acute evidence of ischemia, recent admission with similar findings of elevated cardiac enzyme, upon current ED presentation troponin 0.112, similar to prior, at this point suspect demand, recent echocardiogram as noted performed, will maintain on telemetry monitoring. Currently continuing NH aspirin therapy given unsafe oral intake. 6. Chronic Systolic/Diastolic CHF: CXR with diffuse congestion and interstitial edema, probable bilateral atelectasis or infiltrate in both lung bases, worse on the right, probably BL small to moderate pleural effusions. Recent IV diuresis during recent admission with oral transition. Even SYLVIA with worsening function as well as despite chest x-ray findings presentation suspicious for dehydration judiciously hydrating, holding patient nephrotoxic medications, consider resumption once clinically appropriate. Recent ECHO noted 04/29/2019 with normal LV size, EF 20%, stage I diastolic dysfunction, moderate MVI, PASP 36 mmHg, mild JIMMIE therefore will not repeat. Currently, holding all oral medications, NH aspirin given unsafe oral intake with #1 7.. CAD: Status post PCI, initiate per rectal aspirin, holding oral therapy. 8. Hypertension: Holding all oral medications, PRN IV hydralazine in interim, holding nephrotoxic regimen given worsening SYLVIA. 9. Hyperlipidemia: Holding statin regimen. 10. Chronic anemia: Admission hemoglobin 10, stable from prior, range usually 9-10, recent admission with vitamin B12, folic acid levels obtained given macrocytic presentation with both levels elevated. 11. Rheumatoid arthritis: On regimen, continue outpatient follow-up with rheumatology as needed. 12. Sjogren's disease: Temporarily holding oral regimen including Xiidra regimen. 13. DVT prophylaxis: SCDs, heparin. 14. CODE status: Patient CRISTÓBAL is her daughter who is currently out of town secondary to attending a , several other family members present and discussed patient current presentation is significant ongoing decline over the last several weeks with planned current transition to the ICU. Discussed that during recent admission discussions with daughter and patient with decision for full CODE STATUS however daughter had seemed reticent and patient more eager to remain full code. Discussed that if full code did occur likely would not be a good outcome and mostly because anterior trauma to the chest. Family present noted intention to discuss patient's current decline and status with healthcare power of assistant prosecuting attorney and potentially come to an alternate CODE STATUS. In the interim pending these discussions patient will remain a full code. Advanced Care Planning Face to Face Time: 16 minutes. Code Visit Inpatient E&M: 61426 Init Hosp L3 Procedures: 92530 Advncd Care Plan 30 Min
[2019-05-30] MEDS: 0.9% Normal Saline 1,000 ML 75 ML IV (22:25)
[2019-05-30 23:19] LABS: Magnesium 2.6 mg/dL (1.6-2.6); Thyroid Stim Hormone (TSH) 4.29 uIU/mL (0.358-3.74)
[2019-05-30] MEDS: 0.9% Saline Lock 10 ML Syringe IV (23:46)
[2019-05-30] MEDS: Heparin Injection (Vial) 5,000 UNIT/ML VIAL 5000 UNIT SC (23:46)
[2019-05-30] MEDS: Timolol 0.5% 5ML OPTH.BTL 1 DRP EACH EYE (23:48)
[2019-05-30] MEDS: Latanoprost 0.005% 1 Bottle 1 DRP EACH EYE (23:53)
[2019-05-31] VITALS (25 sets, daily range): BP systolic 101–156; BP diastolic 38–92; PULSE 49–67; RESP 11–22; TEMP 35.9–36.7; O2SAT 92–100
--- NOTE | 2019-05-31 01:32 | PCM.RX.CS ---
Consult Pharmacy has been consulted to manage selected antiobiotic: Vancomycin Type of Consult: New start Suspected Infection: Pneumonia Labs: Sodium 138 mmol/L (136-145) 05/30/19 20:10 Potassium 4.9 mmol/L (3.5-5.1) 05/30/19 20:10 Chloride 103 mmol/L (98-107) 05/30/19 20:10 Carbon Dioxide 25.0 mmol/L (21.0-32.0) 05/30/19 20:10 Anion Gap 10 (5-15) 05/30/19 20:10 BUN 77 mg/dL (7-18) H 05/30/19 20:10 Creatinine 3.02 mg/dL (0.55-1.02) H 05/30/19 20:10 Est GFR (MDRD) Af Amer 19 mL/min (>60) L 05/30/19 20:10 Est GFR (MDRD) Non-Af 16 mL/min (>60) L 05/30/19 20:10 BUN/Creatinine Ratio 25.5 RATIO (10-20) H 05/30/19 20:10 Glucose 155 mg/dL (74-106) H 05/30/19 20:10 Microbiology: Microbiology 05/30/19 20:55 Urine Catheter - Catheter Legionella Antigen - Final 05/30/19 20:55 Urine Catheter - Catheter Streptococcus pneumoniae Antigen (M - Final Weight used for dosin.8 kg Estimated Creatinine Clearance: 11.4 Goal Trough: 15-20 mcg/mL Pharmacy Plan for Drug Dosing: Pharmacy Service will continue to monitor and adjust dosing as required. Medications Discontinued Medications Vancomycin HCl 1,250 mg/ (Sodium Chloride) 275 mls @ 167 mls/hr IV X1 ONE Stop: 05/31/19 00:38 Last Admin: 05/30/19 23:59 Dose: 167 mls/hr Documented by: CRCl < 20 NOT ON DIALYSIS -- RANDOM LEVEL ORDERED 2ND MORNING AFTER INITIAL DOSE, NEXT DOSE TO BE ORDERED THEN Follow-Up Labs: Trough Vancomycin Labs to be done on [date and time ordered]: 06/01 @ 0600
--- NOTE | 2019-05-31 01:45 | NURSING ---
Daughter at bedside. Pt. moaning and crying out in pain. Pt's daughter said that the SCD's always bother pt's legs; pt. has neuropathy. SCD's removed per family request.
[2019-05-31] MEDS: Morphine 2 MG/ML Syringe IV (01:47)
[2019-05-31] MEDS: 0.9% Saline Lock 10 ML Syringe IV ×2 (01:49→12:09)
--- NOTE | 2019-05-31 02:18 | NURSING ---
Dr. Garcia speaking with HPOA Anaya- daughter about code status. Changing pt. to DNR-CCA.
--- NOTE | 2019-05-31 02:31 | PCM.HOSP.N ---
Hospitalist Note Patient's daughter and healthcare power of extrusion die repair manager returned from [place]. Requested discussions to reevaluate CODE STATUS. Rediscussed CODE status at length including difference between FULL code, DNR-CCA and DNR-CC status as well as review of patient's current status and recent events. Following discussions about the differences in these status, requested change from full code to DNR CCA, no intubation. Advanced Care Planning Face to Face Time: 16 minutes. Multi Select Codes - Hospitalists' Procedures Procedures: 49971 Advncd Care Plan 30 Min
[2019-05-31] MEDS: Acetaminophen 650 MG Suppository RECTAL (03:55)
[2019-05-31 04:43] LABS: Absolute Lymphocyte Count 1.36 X10^3/uL (0.83-4.51); Basophil# 0.02 X10^3/uL; Basophil% 0.1 % (0-1); Eosinophils% 0.7 % (0-5); Hematocrit 30.5 % (37-47); Hemoglobin 9.3 g/dL (12.0-15.0); Lymphocyte # 1.36 X10^3/ul (4.0); Mean Corp Hgb Conc 30.5 g/dL (32-36); Mean Corpuscular Hgb 34.1 pg (27.0-32.0); Mean Corpuscular Volume 111.7 fL (81-99); Mean Platelet Vol. 12.6 fl (6.2-12.0); Monocyte# 0.99 X10^3/uL; Monocyte% 7.3 % (0-10); NRBC Flagged by Analyzer 0.1 % (0-5); Neutrophil # 10.97 X10^3/uL (2.7-7.7); Neutrophil % 81.1 % (47-70); POSITIVE MORPHOLOGY YES; Platelet Count 180 K/mm3 (150-450); RBC Distribution Width SD 80.5 fl (35.1-43.9); Red Blood Count 2.73 M/mm3 (4.2-5.4); White Blood Count 13.6 K/mm3 (4.4-11.0)
[2019-05-31 04:53] LABS: Differential Indicated SCAN CRITERIA MET
[2019-05-31 05:02] LABS: ALB/GLOB Ratio 0.6 RATIO (0.9-2.4); AST(SGOT) 95 U/L (15-37); Alanine Aminotransfer ALT/SGPT 111 U/L (13-56); Albumin, Serum 2.4 g/dL (3.2-5.0); Alkaline Phosphatase 142 U/L (45-117); Anion Gap 8 (5-15); BUN 75 mg/dL (7-18); BUN/Creat Ratio 27.9 RATIO (10-20); Calcium,Total 8.1 mg/dL (8.5-10.1); Chloride 107 mmol/L (98-107); Creatinine, Serum 2.69 mg/dL (0.55-1.02); EST Glomerular Filtration Rate 18 mL/min (>60); Est Glom Filt Rate - Afr Amer 22 mL/min (>60); Estimated Creatinine Clearance 12.85 ml/min; Globulin 4.2 g/dL (2.2-4.2); Glucose 127 mg/dL (74-106); Potassium 4.8 mmol/L (3.5-5.1); Protein, Total 6.6 g/dL (6.4-8.2); Sodium Level 140 mmol/L (136-145)
[2019-05-31 05:25] LABS: Anisocytosis 2+; Macrocytosis 2+; Platelet Estimate ADEQUATE (ADEQ); Polychromasia 1+
--- NOTE | 2019-05-31 05:55 | RAD_ITS ---
HISTORY: DYSPNEA ADDITIONAL HISTORY: None provided. TECHNIQUE: Frontal chest radiograph. Number of images including paperwork: 2 COMPARISON: 05/30/2019 8:28 PM FINDINGS: LUNGS AND PLEURA: Bilateral pleural effusions and associated pulmonary opacities are probably grossly similar given differences in patient position. CARDIAC SILHOUETTE: Stable. MEDIASTINUM AND NANCY: Stable. UPPER ABDOMEN: Unremarkable. SKELETON AND SOFT TISSUES: No acute findings. OTHER DEVICES AND HARDWARE: Unchanged left chest port. RAD/Chest 1 View (Portable) IMPRESSION: Bilateral pleural effusions and associated pulmonary opacities are probably grossly similar given differences in patient position. at 0647 Reported and signed by: Luciana Sánchez MD Electronically Signed: Luciana Sánchez MD at 6:47 EST Tel , Service support ,
--- NOTE | 2019-05-31 07:15 | CON.PCM_ITS ---
Reason for Consult Date of Consultation: 05/31/19 Reason for Consultation: Sharps seizure activity, suspected pneumonia, acute kidney injury History of Present Illness: The patient is a 78-year-old female, with a history as outlined below, who presented to the emergency department on May 30 from the transitional care unit following an episode of unresponsiveness. The patient appears to have just been admitted to the hospital May 27 with acute on chronic systolic and diastolic heart failure. At approximately 8 PM last evening in the transitional care unit, nursing documented that the patient was choking, following this episode, as when the patient apparently became unresponsive with seizure-like activity and hypoxemia. The patient has no known history of previous epilepsy. She was immediately transferred from the transitional care unit to the emergency department for evaluation. On arrival to the ED, the patient had another documented seizure. The patient was treated with IV Ativan and subsequently loaded on Keppra. On presentation to the ED, the patient was documented to be afebrile and hemodynamically stable. Laboratory evaluation revealed an elevated white blood cell count to 15,000. Chemistry profile was notable for chronic kidney disease with a creatinine of 3.02. AST, ALT and alkaline phosphatase were all increased. Troponin was mildly increased. Head CT only revealed chronic involutional changes of the brain. Chest x-ray revealed bilateral pulmonary opacities and effusions. There was apparent concern for the development of aspiration pneumonia, so the patient was started on broad-spectrum antimicrobials, including Zosyn and vancomycin. The patient was subsequently transferred to the medical intensive care unit for further management. Overnight, the patient's CODE STATUS was confirmed with family to be DNR CCA without intubation. She has not had any further seizure activity while admitted to the intensive care unit. Past Medical History Past Medical History (Chronic Problems): Chronic Problems (Last Updated 05/30/19 @ 12:57 by Carol Perry, KHOA-C) Fecal impaction of colon (Chronic) Hypertension (Chronic) Coronary artery disease (Chronic) Hypokalemia (Chronic) Glaucoma (Chronic) Allergic rhinitis (Chronic) Dry eye (Chronic) Claustrophobia (Chronic) Anxiety (Chronic) CHF (congestive heart failure) (Chronic) Lower extremity edema (Chronic) Atherosclerotic heart disease of [place] coronary artery without angina pectoris (Chronic) History of non-ST elevation myocardial infarction (NSTEMI) (Chronic 04/2019) 05/2018, 03/2019, 04/2019 Essential (primary) hypertension (Chronic) Hyperlipemia (Chronic) 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) Iron deficiency anemia (Chronic) Recurrent falls (Chronic) Medical History: Medical History (Last Updated 05/30/19 @ 12:57 by Carol Perry NP-C) Lower extremity edema (Chronic) R60.0 Atherosclerotic heart disease of [place] coronary artery without angina pectoris (Chronic) I25.10 History of non-ST elevation myocardial infarction (NSTEMI) (Chronic) Onset Date: 04/2019 I25.2 05/2018, 03/2019, 04/2019 Acute on chronic systolic (congestive) heart failure (Acute) I50.23 Essential (primary) hypertension (Chronic) I10 Hyperlipemia (Chronic) E78.5 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) I45.2 Iron deficiency anemia (Chronic) D50.9 Recurrent falls (Chronic) R29.6 Anemia D64.9 Chronic kidney disease, stage 3 (moderate) N18.3 Chronic renal insufficiency N18.9 Closed fracture of left inferior pubic ramus S32.592A History of Sjogren's disease Z87.39 Rheumatoid arthritis M06.9 ARF (acute renal failure) (Resolved) GI bleed K92.2 Pleural effusion, left J90 Syncope and collapse R55 Chronic diastolic (congestive) heart failure (Ruled-out) I50.32 Diastolic dysfunction (Inactive) I51.9 Left ventricular hypertrophy (Inactive) I51.7 Allergies adalimumab [From Humira] Allergy (Verified 05/30/19 21:46) Rash ciprofloxacin HCl [From Cipro] Allergy (Verified 05/30/19 21:46) Unknown doxazosin Allergy (Verified 05/30/19 21:46) Other hydroxyzine [From Vistaril] Allergy (Verified 05/30/19 21:46) Other latex Allergy (Verified 05/30/19 21:46) Rash levofloxacin [From Levaquin] Allergy (Verified 05/30/19 21:46) Unknown lisinopril Allergy (Verified 05/30/19 21:46) Other COUGH Methotrexate Analogues Allergy (Verified 05/30/19 21:46) Hives naproxen Allergy (Verified 05/30/19 21:46) Unknown potassium clavulanate [From Augmentin] Allergy (Verified 05/30/19 21:46) Unknown Sulfa (Sulfonamide Antibiotics) Allergy (Verified 05/30/19 21:46) Unknown amlodipine Adverse Reaction (Severe, Verified 05/30/19 21:46) edema haloperidol lactate [From Haldol] Adverse Reaction (Unknown, Verified 05/30/19 21:46) agitation amoxicillin trihydrate [From Augmentin] Adverse Reaction (Verified 05/30/19 21:46) Upset Stomach hydromorphone HCl [From Dilaudid] Adverse Reaction (Verified 05/30/19 21:46) Other HALLUCINATIONS hydroxychloroquine sulfate [From Plaquenil] Adverse Reaction (Verified 05/30/19 21:46) Other VISION ISSUES Home Medications: Ambulatory Orders Medication Instructions Recorded Multivit-Min/FA/Lycopen/Lutein 1 tab PO DAILY 04/01/15 [Centrum Silver Tablet] Cholecalciferol (Vitamin D3) 5,000 unit PO DAILY 06/06/18 [Vitamin D3] Cyanocobalamin (Vitamin B-12) 1,000 mcg PO DAILY 06/06/18 [B-12] Vit C/E/Zn/Coppr/Lutein/Zeaxan 1 cap PO BID 06/06/18 [Preservision Areds 2 Softgel] atorvastatin 20 mg tablet 20 mg PO QHS 06/21/18 potassium chloride 10 mEq 10 meq PO QHS cap 06/21/18 capsule,extended release Brimonidine Tartrate/Timolol 1 drp EACH EYE BID 02/13/19 [Combigan Eye Drops] Latanoprost 1 drp EACH EYE QHS 02/13/19 isosorbide mononitrate 60 mg 60 mg PO DAILY tab 02/19/19 tablet,extended release 24 hr Metoprolol Tartrate [Lopressor 75 mg PO BID 03/20/19 (beta elena)] Ranolazine [Ranexa] 1,000 mg PO BID 03/20/19 Acetaminophen [Tylenol] 1,000 mg PO Q8H 04/28/19 Lifitegrast [Xiidra] 1 ea OP BID 04/29/19 fluticasone propionate 50 1 spray INTRANASAL DAILY PRN PRN 05/23/19 mcg/actuation nasal spray,suspension Calcium Carb/Vitamin D 1 tab PO BIDCM 05/27/19 [Caltrate-600 With Vit D Tab] Nitroglycerin [Nitrostat] 0.4 mg SUBLINGUAL Q5M PRN 05/27/19 Aspirin E.C. [Ecotrin] 81 mg PO DAILY@0800 05/30/19 Furosemide [Lasix] 40 mg PO BID@1000,1800 05/30/19 Surgical History: Surgical History (Last Reviewed 05/23/19 @ 11:50 by Liudmila Byrd) History of coronary artery stent placement (Resolved) Onset Date: 05/21/09 Z95.5 PCI-NIGHAT-RCA w/ 2.5 x 28 mm Promus Stent x 2, NIGHAT-Ramus w/ 2.25 x 20 Taxus Stent 05/21/2009 History of carpal tunnel release Z98.890 History of left heart catheterization Onset Date: 06/07/18 Z98.890 History of left hip replacement Z96.642 History of right hip hemiarthroplasty Z96.641 Surgical History: angioplasty, total hip arthroplasty - Bilateral, - - Carpal tunnel surgery. Psychiatric History: Anxiety [employer]EN PARAP[employer]OFESSIONAL History: No pertinent KINDERGARTEN PARAP[employer]OFESSIONAL history Lives: Intermediate Smoking Status: Never smoker Tobacco Use: Non-smoker Alcohol: None Drugs: None - *Family History Paternal Family History: Family History (Last Reviewed 05/23/19 @ 11:50 by Liudmila Byrd) Father No problems noted. History Items: Heart Disease Maternal Family History: Family History (Last Reviewed 05/23/19 @ 11:50 by Liudmila Byrd) Father No problems noted. History Items: Cancer - Mother with history of breast cancer. Review of Systems Constitutional: Reports: Weakness, Fatigue Eyes: Denies: Blurred vision, Double vision HEENT: Reports: Difficulty Swallowing, Dysphasia Cardiovascular: Denies: Chest Pain, Palpitations Respiratory: Reports: Shortness of Breath Gastrointestinal: Denies: Abdominal Pain, Nausea, Vomiting Genitourinary: Denies: Dysuria Musculoskeletal: Reports: Leg Pain Skin: Denies: Rash, Wounds Neurological: Reports: Seizures Psychiatric: Denies: Anxiety, Depression, Homicidal Ideations, Suicidal Ideations Hematologic/ Lymphatic: Denies: Easy Bruising, Easy Bleeding Patient Problems: Active and Suspected Problems (Last Updated 05/30/19 @ 12:57 by MICHELLE He) Acute on chronic kidney failure (Acute) Seizure (Acute) Hypoxia (Acute) Aspiration pneumonia (Acute) Objective: The patient's most recent lab work, culture data and imaging studies have all been personally reviewed. - Physical Exam Vitals/I&O's: Vital Signs Temp Pulse Resp BP Pulse Ox 97.0 F L 50 L 12 126/45 H 100 05/31/19 06:00 05/31/19 06:00 05/31/19 06:00 05/31/19 06:00 05/31/19 06:00 Oxygen Flow Rate (L/min) 2 Oxygen Delivery Method Nasal Cannula Weight: 105 lb 13.15 oz Body Mass Index (BMI) 18.6 Intake and Output for Last 24 Hours 05/29/19 05/30/19 05/31/19 23:59 23:59 23:59 Intake Total 437.5 / 437.75 887.75 / 887.75 Output Total 150 / 150 125 / 125 Balance 287.5 / 287.75 762.75 / 762.75 General: - - Arousable to verbal stimulation. Attempts to answer questions. Still somewhat somnolent. HEENT: Atraumatic, Normocephalic Oral: Dry Mucosa Neck: Supple, No Nodes, Trachea Midline Lungs: Diminished Cardiovascular: Regular rate, Regular Rhythm, Normal S1, Normal S2 Abdomen: Bowel Sounds Present, Soft, Non Tender Extremities: No clubbing, No cyanosis, No edema Skin: No rashes Musculoskeletal: No Tenderness to Palpation of Joints or Extremities Lymphatic: No Cervical, Supraclavicular, or Inguinal Adenopathy Neurological: - - No focal neurological deficits. Psych/Mental Status: Flat Affect Labs (Last 48 Hours) 05/30/19 05/30/19 05/30/19 20:10 20:10 20:10 WBC 14.8 H RBC 2.89 L Hgb 10.0 L Hct 32.1 L MCV 111.1 H MCH 34.6 H MCHC 31.2 L RDW Std Deviation 78.9 H RDW Coeff of [place] 20.1 H Plt Count 223 MPV 13.1 H Immature Gran % (Auto) 0.900 Neut % (Auto) 74.4 H Lymph % (Auto) 14.2 L [place] % (Auto) 9.3 Eos % (Auto) 0.9 Baso % (Auto) 0.3 Absolute Neuts (auto) 11.0 H Absolute Lymphs (auto) 2.10 Nucleated RBC % 0.4 Differential Comment SCANNED Platelet Estimate Polychromasia Anisocytosis Macrocytosis PT 18.8 H INR 1.6 APTT 45.0 H Sodium 138 Potassium 4.9 Chloride 103 Carbon Dioxide 25.0 Anion Gap 10 BUN 77 H Creatinine 3.02 H Estim Creat Clear Calc 12.11 Est GFR (MDRD) Af Amer 19 L Est GFR (MDRD) Non-Af 16 L BUN/Creatinine Ratio 25.5 H Glucose 155 H Calcium 8.3 L Magnesium Total Bilirubin 0.70 AST 109 H ALT 126 H Alkaline Phosphatase 162 H Troponin I 0.113 H B-Natriuretic Peptide Total Protein 7.0 Albumin 2.5 L Globulin 4.5 H Albumin/Globulin Ratio 0.6 L TSH Urine Color Urine Clarity Urine pH Ur Specific [place] Urine Protein Urine Glucose (UA) Urine Ketones Urine Occult Blood Urine Nitrite Urine Bilirubin Urine Urobilinogen Ur Leukocyte Esterase Urine RBC Urine WBC Ur Squamous Epith Cells Urine Bacteria Urine Mucus 05/30/19 05/30/19 05/30/19 20:10 20:55 23:45 WBC RBC Hgb Hct MCV MCH MCHC RDW Std Deviation RDW Coeff of [place] Plt Count MPV Immature Gran % (Auto) Neut % (Auto) Lymph % (Auto) [place] % (Auto) Eos % (Auto) Baso % (Auto) Absolute Neuts (auto) Absolute Lymphs (auto) Nucleated RBC % Differential Comment Platelet Estimate Polychromasia Anisocytosis Macrocytosis PT INR APTT Sodium Potassium Chloride Carbon Dioxide Anion Gap BUN Creatinine Estim Creat Clear Calc Est GFR (MDRD) Af Amer Est GFR (MDRD) Non-Af BUN/Creatinine Ratio Glucose Calcium Magnesium 2.6 Total Bilirubin AST ALT Alkaline Phosphatase Troponin I 0.112 H B-Natriuretic Peptide Total Protein Albumin Globulin Albumin/Globulin Ratio TSH 4.29 H Urine Color Naheed Urine Clarity Sl Cldy Urine pH 5.0 Ur Specific [place] 1.020 Urine Protein 100 H Urine Glucose (UA) Normal Urine Ketones 5 H Urine Occult Blood 10 H Urine Nitrite Negative Urine Bilirubin 1 H Urine Urobilinogen 1 H Ur Leukocyte Esterase 100 H Urine RBC 0-5 SEEN Urine WBC 5-10 SEEN Ur Squamous Epith Cells 0-5 SEEN Urine Bacteria 0 SEEN Urine Mucus 0 SEEN 05/31/19 05/31/19 05/31/19 02:05 04:10 04:10 WBC 13.6 H RBC 2.73 L Hgb 9.3 L Hct 30.5 L MCV 111.7 H MCH 34.1 H MCHC 30.5 L RDW Std Deviation 80.5 H RDW Coeff of [place] 20.0 H Plt Count 180 MPV 12.6 H Immature Gran % (Auto) 0.800 Neut % (Auto) 81.1 H Lymph % (Auto) 10.0 L [place] % (Auto) 7.3 Eos % (Auto) 0.7 Baso % (Auto) 0.1 Absolute Neuts (auto) 11.0 H Absolute Lymphs (auto) 1.36 Nucleated RBC % 0.1 Differential Comment Platelet Estimate ADEQUATE Polychromasia 1+ Anisocytosis 2+ Macrocytosis 2+ PT INR APTT Sodium 140 Potassium 4.8 Chloride 107 Carbon Dioxide 25.0 Anion Gap 8 BUN 75 H Creatinine 2.69 H Estim Creat Clear Calc 12.85 Est GFR (MDRD) Af Amer 22 L Est GFR (MDRD) Non-Af 18 L BUN/Creatinine Ratio 27.9 H Glucose 127 H Calcium 8.1 L Magnesium Total Bilirubin 0.90 AST 95 H ALT 111 H Alkaline Phosphatase 142 H Troponin I 0.119 H B-Natriuretic Peptide Total Protein 6.6 Albumin 2.4 L Globulin 4.2 Albumin/Globulin Ratio 0.6 L TSH Urine Color Urine Clarity Urine pH Ur Specific [place] Urine Protein Urine Glucose (UA) Urine Ketones Urine Occult Blood Urine Nitrite Urine Bilirubin Urine Urobilinogen Ur Leukocyte Esterase Urine RBC Urine WBC Ur Squamous Epith Cells Urine Bacteria Urine Mucus 05/31/19 04:10 WBC RBC Hgb Hct MCV MCH MCHC RDW Std Deviation RDW Coeff of [place] Plt Count MPV Immature Gran % (Auto) Neut % (Auto) Lymph % (Auto) [place] % (Auto) Eos % (Auto) Baso % (Auto) Absolute Neuts (auto) Absolute Lymphs (auto) Nucleated RBC % Differential Comment Platelet Estimate Polychromasia Anisocytosis Macrocytosis PT INR APTT Sodium Potassium Chloride Carbon Dioxide Anion Gap BUN Creatinine Estim Creat Clear Calc Est GFR (MDRD) Af Amer Est GFR (MDRD) Non-Af BUN/Creatinine Ratio Glucose Calcium Magnesium Total Bilirubin AST ALT Alkaline Phosphatase Troponin I B-Natriuretic Peptide Pending Total Protein Albumin Globulin Albumin/Globulin Ratio TSH Urine Color Urine Clarity Urine pH Ur Specific [place] Urine Protein Urine Glucose (UA) Urine Ketones Urine Occult Blood Urine Nitrite Urine Bilirubin Urine Urobilinogen Ur Leukocyte Esterase Urine RBC Urine WBC Ur Squamous Epith Cells Urine Bacteria Urine Mucus Microbiology 05/30/19 23:26 Mucosa - Nasopharyngeal Respiratory Panel (PCR) - Final 05/30/19 20:55 Urine Catheter - Catheter Legionella Antigen - Final 05/30/19 20:55 Urine Catheter - Catheter Streptococcus pneumoniae Antigen (M - Final Clinical Impression(s) from Imaging Studies Brain CT 05/30/19 20:12 IMPRESSION: Chronic involutional changes of the brain. No change and no acute abnormality. Electronically Signed: Blu Freitas MD at 20:33 EST , Service support , Chest X-Ray 05/30/19 20:24 IMPRESSION: Probable diffuse congestion and interstitial edema. Probable bilateral atelectasis or infiltrate in both lung bases worse on the right. Probable bilateral [id number] pleural effusions. Electronically Signed: Blu Freitas MD at 20:40 EST , Service support , Chest X-Ray 05/31/19 05:55 IMPRESSION: Bilateral pleural effusions and associated pulmonary opacities are probably grossly similar given differences in patient position. at 0647 Reported and signed by: Luciana Sánchez MD Electronically Signed: Luciana Sánchez MD at 6:47 EST Tel , Service support , Current Medications Acetaminophen (Tylenol) 650 mg RECTAL Q4H PRN PRN PRN Reason: fever, pain 1-10 Last Admin: 05/31/19 03:55 Dose: 650 mg Documented by: Albuterol Sulfate (Ventolin Aerosols) 2.5 mg INHALATION Q2H PRN PRN PRN Reason: dyspnea, wheezing Aspirin (Aspirin) 300 mg RECTAL DAILY JOSLYN Brimonidine Tartrate (Brimonidine 0.2% 5ml Bottle) 1 drop EACH EYE BID [facility] Last Admin: 05/31/19 00:00 Dose: 1 drop Documented by: Glucagon () 1 mg IM .X1 PRN PRN Reason: Hypoglycemia Heparin Sodium (Beef Lung) () 50 units IV UD PRN PRN Reason: Port-a-Cath (VAD)Heparin Flush Heparin Sodium (Porcine) (Heparin Na) 5,000 unit SC Q12 JOSLYN Last Admin: 05/30/19 23:46 Dose: 5,000 unit Documented by: Hydralazine HCl (Apresoline Iv) 10 mg IV Q4H PRN PRN PRN Reason: SBP > 160 Sodium Chloride () 1,000 mls @ 75 mls/hr IV .[id number] [facility] Last Infusion: 05/31/19 05:34 Dose: 75 mls/hr Documented by: Vancomycin IV Pharmacy to Dose (1 ea/ Sodium Chloride) 500 mls @ 250 mls/hr IV X1 PRN; Protocol PRN Reason: Rx to Dose Piperacillin Sod/Tazobactam (Sod 3.375 gm/ Sodium Chloride) 50 mls @ 12.5 mls/hr IV Q12 JOSLYN Pantoprazole Sodium 40 mg/ (Sodium Chloride) 110 mls @ 330 mls/hr IV Q12 [facility] Last Infusion: 05/31/19 00:07 Dose: Infused Documented by: Levetiracetam 500 mg/ Sodium (Chloride) 105 mls @ 400 mls/hr IV Q12 [facility] Last Infusion: 05/31/19 00:28 Dose: Infused Documented by: Sodium Chloride () 250 mls @ 15 mls/hr IV .[id number] PRN PRN Reason: Saline Flush Last Infusion: 05/31/19 02:13 Dose: 0 mls/hr Documented by: Sodium Chloride () 250 mls @ 15 mls/hr IV .[id number] PRN PRN Reason: Additional IVPB Infusion Dextrose (Dextrose 10%-Water) 250 mls @ 999 mls/hr IV .Q16M PRN; Protocol PRN Reason: HYPOGLYCEMIA Latanoprost (Xalatan Opthalmic) 1 drop EACH EYE QHS [facility] Last Admin: 05/30/19 23:53 Dose: 1 drop Documented by: Lorazepam (Ativan) 1 mg IV Q4H PRN PRN PRN Reason: seizure activity Morphine Sulfate () 2 mg IV Q4H PRN PRN PRN Reason: Pain Score 6-10/10 Last Admin: 05/31/19 01:47 Dose: 2 mg Documented by: Ondansetron HCl (Zofran) 4 mg IV Q8H PRN PRN PRN Reason: NAUSEA/VOMITING Prochlorperazine Edisylate (Compazine Iv) 5 mg IV Q4H PRN PRN PRN Reason: Breakthrough Nausea/Vomiting Psyllium Hydrophilic Mucilloid (Metamucil) 1 packet PO DAILY PRN PRN PRN Reason: Constipation Sodium Chloride () 10 - 40 ml IV UD PRN PRN Reason: Port-a-Cath (VAD) Flush Last Admin: 05/31/19 01:49 Dose: 10 ml Documented by: Sodium Chloride (0.9% Nacl (Sterile) Posiflush) 10 - 40 ml IV UD PRN PRN Reason: Port access or dressing change Timolol Maleate (Timoptic) 1 drop EACH EYE BID JOSLYN Last Admin: 05/30/19 23:48 Dose: 1 drop Documented by: Assessment/Plan Active and Suspected Problems (Last Updated 05/30/19 @ 12:57 by Carol leon, KHOA-C) Acute on chronic kidney failure (Acute) Seizure (Acute) Hypoxia (Acute) Aspiration pneumonia (Acute) RECOMMENDATIONS: 1. Stop vancomycin and Zosyn, as Zosyn can precipitate seizures. Start Unasyn over concerns for aspiration. 2. Stop continuous fluids. 3. MRI and EEG pending. 4. Obtain neurology consultation. 5. Wean supplemental oxygen to maintain saturations at or above 90%. 6. Encourage incentive spirometer use and mobilize patient as tolerated. 7. Maintain n.p.o. status, pending evaluation by speech therapy. IMPRESSIONS: 1. Encephalopathy, likely secondary to sentinel seizure activity Continue seizure precautions. Continue Keppra and as needed Ativan. MRI and EEG are currently pending. Neurology consultation to be obtained after testing is completed. 2. Acute hypoxemic respiratory insufficiency Concern for potential aspiration event. Zosyn was discontinued this morning, as the medication can precipitate seizures. Vancomycin was similarly discontinued. The patient will be continued on Unasyn for potential aspiration. She does have a known history of congestive heart failure with an EF of 20% and would likely benefit from diuretic therapy. Continue to encourage incentive spirometer use and mobilize patient as tolerated. 3. History of dysphasia in the setting of a diagnosis of Sjogren's syndrome Recommend formal speech therapy evaluation this morning prior to consideration of advancement of diet. 4. Hypertension/hyperlipidemia/coronary artery disease/anemia/rheumatoid arthritis/chronic transaminitis Complicates care, management, recovery and prognosis. Home medications are cur rently on hold until the patient's swallowing to be formally evaluated by speech therapy. The patient will require eventual physical therapy evaluation. This note was generated with [employer] dictation software. It may contain incorrect words, spelling, and punctuation that were not noted in checking the note before signing. Code Visit Inpatient E&M: 32437 Init Hosp L3
--- NOTE | 2019-05-31 07:29 | PN_ITS ---
Patient Problems: Active and Suspected Problems (Last Updated 05/30/19 @ 12:57 by Carol Perry NP-C) Acute on chronic kidney failure (Acute) Seizure (Acute) Hypoxia (Acute) Aspiration pneumonia (Acute) Reason for Visit: The patient was admitted yesterday night for new onset of seizure. Initially patient had choking followed by apparent unresponsiveness and seizure-like activity and hypoxemia. After that patient also had seizure episode in ER as documented by ER physician. She received IV Ativan and subsequently loaded with Keppra. She was admitted in ICU. Currently pulse ox is 100% on 2 L of oxygen, respiratory rate 12, blood pressure 126/45. Afebrile Chest x-ray reviewed and shows diffuse bilateral alveolar opacities suggestive of consolidation or interstitial edema. Bilateral lung bases atelectasis and pleural effusion. Vitals/I&O's: Vital Signs Temp Pulse Resp BP Pulse Ox 97.0 F L 50 L 12 126/45 H 100 05/31/19 06:00 05/31/19 06:00 05/31/19 06:00 05/31/19 06:00 05/31/19 06:00 Oxygen Flow Rate (L/min) 2 Oxygen Delivery Method Nasal Cannula Weight: 105 lb 13.15 oz Body Mass Index (BMI) 18.6 Intake and Output for Last 24 Hours 05/29/19 05/30/19 05/31/19 23:59 23:59 23:59 Intake Total 437.5 / 437.75 887.75 / 887.75 Output Total 150 / 150 125 / 125 Balance 287.5 / 287.75 762.75 / 762.75 General: Oriented x3, Cooperative, Lethargic, - - Low low pitch speech, slow to respond HEENT: Atraumatic, PERRLA, EOMI, Normocephalic Oral: No Gingival or Mucosal Lesions/ Ulcerations, Dry Mucosa, - - Wears dentures Lungs: Diminished - Air entry diminished in bilateral lung bases., Rales - bilateral coarse rales present, - - Left-sided Mediport Cardiovascular: Regular rate, Regular Rhythm, Normal S1, Normal S2, No murmurs, - Abdomen: Bowel Sounds Present, Soft, Non Tender, Non-Distended Extremities: Edema Musculoskeletal: No Tenderness to Palpation of Joints or Extremities, Arthritic Changes, Muscle Wasting Lymphatic: No Cervical, Supraclavicular, or Inguinal Adenopathy Neurological: Deep Tendon Reflexes 2+/4 and Symmetrical, Neuro grossly intact, - - Patient still drowsy and lethargic. Had seizure episode. Psych/Mental Status: Flat Affect Microbiology Past 72 Hours 05/30/19 23:26 Mucosa - Nasopharyngeal Respiratory Panel (PCR) - Final 05/30/19 20:55 Urine Catheter - Catheter Legionella Antigen - Final 05/30/19 20:55 Urine Catheter - Catheter Streptococcus pneumoniae Antigen (M - Final Laboratory Results 05/30/19 20:10: WBC 14.8 H, RBC 2.89 L, Hgb 10.0 L, Hct 32.1 L, MCV 111.1 H, MCH 34.6 H, MCHC 31.2 L, RDW Std Deviation 78.9 H, RDW Coeff of Myke 20.1 H, Plt Count 223, MPV 13.1 H, Immature Gran % (Auto) 0.900, Neut % (Auto) 74.4 H, Lymph % (Auto) 14.2 L, [place] % (Auto) 9.3, Eos % (Auto) 0.9, Baso % (Auto) 0.3, Absolute Neuts (auto) 11.0 H, Absolute Lymphs (auto) 2.10, Nucleated RBC % 0.4, Differential Comment SCANNED 05/30/19 20:10: PT 18.8 H, INR 1.6, APTT 45.0 H 05/30/19 20:10: Sodium 138, Potassium 4.9, Chloride 103, Carbon Dioxide 25.0, Anion Gap 10, BUN 77 H, Creatinine 3.02 H, Estim Creat Clear Calc 12.11, Est GFR (MDRD) Af Amer 19 L, Est GFR (MDRD) Non-Af 16 L, BUN/Creatinine Ratio 25.5 H, Glucose 155 H, Calcium 8.3 L, Total Bilirubin 0.70, AST 109 H, ALT 126 H, Alkaline Phosphatase 162 H, Troponin I 0.113 H, Total Protein 7.0, Albumin 2.5 L , Globulin 4.5 H, Albumin/Globulin Ratio 0.6 L 05/30/19 20:10: Magnesium 2.6, TSH 4.29 H 05/30/19 20:55: Urine Color Naheed, Urine Clarity Sl Cldy, Urine pH 5.0, Ur Specific [place] 1.020, Urine Protein 100 H, Urine Glucose (UA) Normal, Urine Ketones 5 H, Urine Occult Blood 10 H, Urine Nitrite Negative, Urine Bilirubin 1 H, Urine Urobilinogen 1 H, Ur Leukocyte Esterase 100 H, Urine RBC 0-5 SEEN, Urine WBC 5-10 SEEN, Ur Squamous Epith Cells 0-5 SEEN, Urine Bacteria 0 SEEN, Urine Mucus 0 SEEN 05/30/19 23:45: Troponin I 0.112 H 05/31/19 02:05: Troponin I 0.119 H 05/31/19 04:10: WBC 13.6 H, RBC 2.73 L, Hgb 9.3 L, Hct 30.5 L, MCV 111.7 H, MCH 34.1 H, MCHC 30.5 L, RDW Std Deviation 80.5 H, RDW Coeff of [place]ke 20.0 H, Plt Count 180, MPV 12.6 H, Immature Gran % (Auto) 0.800, Neut % (Auto) 81.1 H, Lymph % (Auto) 10.0 L, [place] % (Auto) 7.3, Eos % (Auto) 0.7, Baso % (Auto) 0.1, Absolute Neuts (auto) 11.0 H, Absolute Lymphs (auto) 1.36, Nucleated RBC % 0.1, Platelet Estimate ADEQUATE, Polychromasia 1+, Anisocytosis 2+, Macrocytosis 2+ 05/31/19 04:10: Sodium 140, Potassium 4.8, Chloride 107, Carbon Dioxide 25.0, Anion Gap 8, BUN 75 H, Creatinine 2.69 H, Estim Creat Clear Calc 12.85, Est GFR (MDRD) Af Amer 22 L, Est GFR (MDRD) Non-Af 18 L, BUN/Creatinine Ratio 27.9 H, Glucose 127 H, Calcium 8.1 L, Total Bilirubin 0.90, AST 95 H, ALT 111 H, Alkaline Phosphatase 142 H, Total Protein 6.6, Albumin 2.4 L, Globulin 4.2, Albumin/Globulin Ratio 0.6 L Current Medications Acetaminophen (Tylenol) 650 mg RECTAL Q4H PRN PRN PRN Reason: fever, pain 1-10 Last Admin: 05/31/19 03:55 Dose: 650 mg Documented by: Albuterol Sulfate (Ventolin Aerosols) 2.5 mg INHALATION Q2H PRN PRN PRN Reason: dyspnea, wheezing Aspirin (Aspirin) 300 mg RECTAL DAILY [facility] Brimonidine Tartrate (Brimonidine 0.2% 5ml Bottle) 1 drop EACH EYE BID [facility] Last Admin: 05/31/19 00:00 Dose: 1 drop Documented by: Glucagon () 1 mg IM .X1 PRN PRN Reason: Hypoglycemia Heparin Sodium (Beef Lung) () 50 units IV UD PRN PRN Reason: Port-a-Cath (VAD)Heparin Flush Heparin Sodium (Porcine) (Heparin Na) 5,000 unit SC Q12 [facility] Last Admin: 05/30/19 23:46 Dose: 5,000 unit Documented by: Hydralazine HCl (Apresoline Iv) 10 mg IV Q4H PRN PRN PRN Reason: SBP > 160 Pantoprazole Sodium 40 mg/ (Sodium Chloride) 110 mls @ 330 mls/hr IV Q12 [facility] Last Infusion: 05/31/19 00:07 Dose: Infused Documented by: Levetiracetam 500 mg/ Sodium (Chloride) 105 mls @ 400 mls/hr IV Q12 [facility] Last Infusion: 05/31/19 00:28 Dose: Infused Documented by: Sodium Chloride () 250 mls @ 15 mls/hr IV .[id number] PRN PRN Reason: Saline Flush Last Infusion: 05/31/19 02:13 Dose: 0 mls/hr Documented by: Sodium Chloride () 250 mls @ 15 mls/hr IV .[id number] PRN PRN Reason: Additional IVPB Infusion Dextrose (Dextrose 10%-Water) 250 mls @ 999 mls/hr IV .Q16M PRN; Protocol PRN Reason: HYPOGLYCEMIA Latanoprost (Xalatan Opthalmic) 1 drop EACH EYE QHS [facility] Last Admin: 05/30/19 23:53 Dose: 1 drop Documented by: Lorazepam (Ativan) 1 mg IV Q4H PRN PRN PRN Reason: seizure activity Ondansetron HCl (Zofran) 4 mg IV Q8H PRN PRN PRN Reason: NAUSEA/VOMITING Prochlorperazine Edisylate (Compazine Iv) 5 mg IV Q4H PRN PRN PRN Reason: Breakthrough Nausea/Vomiting Psyllium Hydrophilic Mucilloid (Metamucil) 1 packet PO DAILY PRN PRN PRN Reason: Constipation Sodium Chloride () 10 - 40 ml IV UD PRN PRN Reason: Port-a-Cath (VAD) Flush Last Admin: 05/31/19 01:49 Dose: 10 ml Documented by: Sodium Chloride (0.9% Nacl (Sterile) Posiflush) 10 - 40 ml IV UD PRN PRN Reason: Port access or dressing change Timolol Maleate (Timoptic) 1 drop EACH EYE BID JOSLYN Last Admin: 05/30/19 23:48 Dose: 1 drop Documented by: STROKE Vital Signs/Narrative: Vital Signs Temp Pulse Resp BP Pulse Ox 05/31/19 06:00 97.0 F L 50 L 12 126/45 H 100 05/31/19 05:00 97.0 F L 50 L 20 H 113/38 L 100 05/31/19 04:00 97.3 F L 52 L 20 H 125/48 H 100 Medical Necessity - Tobacco Use Smoking Status: Never smoker Tobacco Use: Non-smoker Assessment/Plan All Active Problems (Last Updated 05/30/19 @ 12:57 by Carol Perry NP-C) Debility (Acute) Fall (Acute) Encephalopathy (Acute) Acute on chronic kidney failure (Acute) Acute on chronic systolic and diastolic heart failure, NYHA class 4 (Acute) Dysphagia (Acute) Seizure (Acute) Hypoxia (Acute) Aspiration pneumonia (Acute) Dyspnea (Acute) History of coronary artery stent placement (Resolved 05/21/09) Acute on chronic systolic (congestive) heart failure (Acute) ARF (acute renal failure) (Resolved) Fracture of femoral neck, left (Resolved) Hypertensive emergency (Resolved) Injury of left shoulder and upper arm (Resolved) Pyelonephritis, acute (Resolved) Scalp laceration (Resolved) Chronic diastolic (congestive) heart failure (Ruled-out) The patient is a 78 year old F with multiple comorbidities is being admitted for new onset of seizure episode x2, preceded by episode of choking, hypoxia and unresponsiveness in TCU. Her pulse ox dropped into the low 60s. Patient was postictal after that. Rapid response was called and then she was transferred to ER Patient had second seizure episode in ER 1. New onset of seizure episode with unresponsiveness: Patient was also found transient hypoxia. Second episode of seizure witnessed by nurses in ER lasted for about [address] brain does not show acute intracranial process. Patient was found dehydrated and had IV fluid 150 mill per hour in ED and then 75 mill per hour ICU. MRI is ordered. On Keppra 500 mg every 12. IV Ativan as needed for seizure episode. SOC tele neurology consult reviewed. I agree with the plan of Keppra and Ativan as needed. EEG reported as no epileptiform discharges but mild to moderate generalized slowing of waves suggestive of encephalopathy. 2. Suspected aspiration pneumonia with associated hypoxia: Chest x-ray shows bilateral diffuse opacity, possible interstitial edema/bilateral atelectasis and effusion. Initially started on vancomycin and Zosyn but is changed to Unasyn to avoid risk of seizure with Zosyn. Urinary antigens and respiratory panel are negative. Currently n.p.o. pending speech therapist evaluation. 3. chronic systolic and diastolic CHF, class IV-echocardiogram 04/29/2019 demonstrated EF 20%, stage I diastolic dysfunction, moderate mitral valve insufficiency, mild aortic valve insufficiency, pulmonary artery systolic pressure 36 mmHg. Currently patient looks dehydrated but later on can resume Lasix 40 mg twice daily, once euvolemic. Strict input and output. Daily weight. Light Jose wrap bandage bilateral lower extremities as patient probably has peripheral arterial disease. 4. 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 Renal ultrasound demonstrated bilateral renal cortical atrophy indicative of medical renal disease. BUN/creatinine 75/2.69. Kidney profile is better than previous hospit al stay 3. Mildly elevated troponin-suspect demand ischemia/seizure episode/CKD stage IV: Patient does not have chest pain. Troponin 0.119. 4. CAD with history of PCI-continue statin, isosorbide, metoprolol, Ranexa. Patient follows with Dr. Hernandez. Patient was deemed not a good candidate for cardiac cath/PCI because of history of severe anemia/GI bleed and also CKD stage IV 5. Hypertension-once patient is stable, resume isosorbide, metoprolol regimen. 6. Hyperlipidemia-continue statin. 7. Glaucoma-continue home ophthalmic regimen. 8. Rheumatoid arthritis/Sjogren's/peripheral neuropathy-no longer on regimen, stable. 9. Chronic macrocytic anemia-stable, trend CBC. 10. Elevated transaminases probably secondary to congestive liver disease from CHF. AST/ALT trending down.Right upper quadrant sonogram was done and reported 3 mm gallbladder polyp. Liver shows normal echogenicity no mass identified. CBD 3 mm. 11. Debility with recurrent falls and fracture of medial left inferior and superior pubic rami on 05/01/2019: Patient has gait instability. Continue PT/OT stable. 12. PAD with diminished peripheral pulses- MOOSE: Right side 1.19, left 0.9, DBI: Right 1.16, left 0.9. Right-sided suggestive of possible chronic arteriosclerosis/calcification. Vascular surgeon was consulted during last admission but had not seen the patient. Follow-up with Dr. Deleon as an outpat ient Advanced directive/CODE STATUS: During previous hospital stay, I discussed advance care/end-of-life goal with patient's son and daughter Anaya, present in the room today and agree with DNR CC arrest. Total time of the visit including total time spent in counseling or coordination of care, (more than 50% of the total time, spent in obtaining medical information from nurses and other ancillary care providers), discussion with network systems consultant and patient's son and daughter and nursing staff, review of labs and imaging is 40 minutes Clinical Impression(s) from Imaging Studies Brain CT 05/30/19 20:12 IMPRESSION: Chronic involutional changes of the brain. No change and no acute abnormality. Chest X-Ray 05/30/19 20:24 IMPRESSION: Probable diffuse congestion and interstitial edema. Probable bilateral atelectasis or infiltrate in both lung bases worse on the right. Probable bilateral hihpi-es-yrsiigte pleural effusions. Electronically Signed: Blu Freitas MD at 20:40 EST , Service support , Chest X-Ray 05/31/19 05:55 IMPRESSION: Bilateral pleural effusions and associated pulmonary opacities are probably grossly similar given differences in patient position. Code Visit Inpatient E&M: 18943 Subs Hosp L3
--- NOTE | 2019-05-31 08:00 | MRI_ITS ---
STUDY: MRI BRAIN WITHOUT CONTRAST REASON FOR EXAM: Female, 78 years old. NEW ONSET SEIZURE, PT UNABLE TO BE STILL TECHNIQUE: Standardized multiplanar fat and water weighted pulse sequences were obtained. Motion limited exam. COMPARISON: None. FINDINGS: There is moderate cerebral atrophy with widening of the extra-axial spaces and ventricular dilatation. There are multiple white matter hyperintensities, distributed throughout the deep white matter tracts of the cerebral hemispheres, consistent with moderate chronic white matter ischemic changes. There is no evidence for recent intracranial ischemia or other cause of cytotoxic edema on diffusion weighted imaging (DWI). Normal bilateral basal ganglia. Normal thalami. There is no extra-axial fluid accumulation. Normal flow voids within the major intracranial circulation suggesting patency by spin echo criteria. Normal sella turcica, pituitary gland, infundibular stalk, optic chiasm and hypothalamus. Normal tectal plate and pineal gland. Normal midbrain, nia and medulla. Normal cerebellum. Normal basal cisterns. Normal bilateral temporal bones. Normal bilateral internal auditory canals. No demonstrated orbital abnormality, within the constraints of a routine brain study. Normal visualized paranasal sinuses. Normal calvarium and skull base. Normal visualized soft tissue structures. Normal visualized upper cervical spine. MRI/Brain without Contrast IMPRESSION: Involutional changes of the brain, as described above. Motion limited exam. Electronically Signed: Tim Abrams MD at 16:32 EST , Service support ,
--- NOTE | 2019-05-31 09:27 | CM.UR ---
Participated in interdisciplinary rounds. Multiple family members present. Awaiting EEG results. DC plan TBD. Possibly return to TCU. Luzmaria Rivera RN, CCM.
[2019-05-31 09:47] LABS: BNP,B-Type NATRIURETIC PEPTIDE 4876.2 pg/mL (0-100)
[2019-05-31] MEDS: BRIMONIDINE 0.2% 5ML BOTTLE 1 DRP EACH EYE ×3 (12:13→21:18)
[2019-05-31] MEDS: Heparin Injection (Vial) 5,000 UNIT/ML VIAL 5000 UNIT SC ×2 (12:14→21:17)
[2019-05-31] MEDS: Timolol 0.5% 5ML OPTH.BTL 1 DRP EACH EYE ×2 (12:15→21:19)
[2019-05-31] MEDS: LIFITEGRAST 1 EACH DROPERETTE OP ×2 (12:15→21:18)
[2019-05-31] MEDS: Glycerin/Hypromellose/PEG400 15 ml Bottle 2 DRP EACH EYE ×3 (17:41→23:53)
[2019-05-31] MEDS: Latanoprost 0.005% 1 Bottle 1 DRP EACH EYE (21:18)
[2019-06-01] VITALS (21 sets, daily range): BP systolic 126–156; BP diastolic 49–89; PULSE 63–74; RESP 15–20; TEMP 36.3–37.4; O2SAT 90–100
[2019-06-01] MEDS: Glycerin/Hypromellose/PEG400 15 ml Bottle 2 DRP EACH EYE ×3 (02:09→06:17)
--- NOTE | 2019-06-01 06:11 | PN_ITS ---
Subjective: The patient was seen and examined at the bedside this morning. Events from the last 24 hours have been reviewed. The patient is currently afebrile, hemodynamically stable and maintaining appropriate oxygen saturations on room air. No overnight events were noted by the nursing staff. The patient remains seizure-free. She is much more alert and interactive this morning. She denies the presence of pain or shortness of breath. Objective: The patient's most recent lab work, culture data and imaging studies have all been personally reviewed. Brain MRI only revealed involutional changes of the brain. EEG revealed mild to moderate diffuse encephalopathy with continuous slow generalized pattern without discernible background rhythm. General: Alert, Cooperative, No apparent distress HEENT: Atraumatic, PERRLA, Normocephalic Oral: No Gingival or Mucosal Lesions/ Ulcerations Neck: Supple, No Nodes, Trachea Midline Lungs: Diminished Cardiovascular: Regular rate, Regular Rhythm, Normal S1, Normal S2 Abdomen: Bowel Sounds Present, Soft, Non Tender Extremities: No clubbing, No cyanosis Skin: No breakdown Musculoskeletal: No Tenderness to Palpation of Joints or Extremities Lymphatic: No Cervical, Supraclavicular, or Inguinal Adenopathy Neurological: Neuro grossly intact Psych/Mental Status: Normal Affect, Appropriate Vital Signs Temp Pulse Resp BP Pulse Ox 98.8 F 72 20 H 126/89 H 90 06/01/19 06:00 06/01/19 06:00 06/01/19 06:00 06/01/19 06:00 06/01/19 06:00 Oxygen Flow Rate (L/min) 2 Oxygen Delivery Method Room Air Weight: 108 lb 7.479 oz Body Mass Index (BMI) 18.6 Intake and Output for Last 24 Hours 05/30/19 05/31/19 06/01/19 23:59 23:59 23:59 Intake Total 437.5 / 437.75 1725.75 / 1945.75 310 / 310 Output Total 150 / 150 325 / 575 475 / 475 Balance 287.5 / 287.75 1400.75 / 1370.75 -165 / -165 Labs (Last 48 Hours) 05/30/19 05/30/19 05/30/19 20:10 20:10 20:10 WBC 14.8 H RBC 2.89 L Hgb 10.0 L Hct 32.1 L MCV 111.1 H MCH 34.6 H MCHC 31.2 L RDW Std Deviation 78.9 H RDW Coeff of Myke 20.1 H Plt Count 223 MPV 13.1 H Immature Gran % (Auto) 0.900 Neut % (Auto) 74.4 H Lymph % (Auto) 14.2 L Lares % (Auto) 9.3 Eos % (Auto) 0.9 Baso % (Auto) 0.3 Absolute Neuts (auto) 11.0 H Absolute Lymphs (auto) 2.10 Nucleated RBC % 0.4 Differential Comment SCANNED Platelet Estimate Polychromasia Anisocytosis Macrocytosis PT 18.8 H INR 1.6 APTT 45.0 H Sodium 138 Potassium 4.9 Chloride 103 Carbon Dioxide 25.0 Anion Gap 10 BUN 77 H Creatinine 3.02 H Estim Creat Clear Calc 12.11 Est GFR (MDRD) Af Amer 19 L Est GFR (MDRD) Non-Af 16 L BUN/Creatinine Ratio 25.5 H Glucose 155 H Calcium 8.3 L Magnesium Total Bilirubin 0.70 AST 109 H ALT 126 H Alkaline Phosphatase 162 H Troponin I 0.113 H B-Natriuretic Peptide Total Protein 7.0 Albumin 2.5 L Globulin 4.5 H Albumin/Globulin Ratio 0.6 L TSH Urine Color Urine Clarity Urine pH Ur Specific [place] Urine Protein Urine Glucose (UA) Urine Ketones Urine Occult Blood Urine Nitrite Urine Bilirubin Urine Urobilinogen Ur Leukocyte Esterase Urine RBC Urine WBC Ur Squamous Epith Cells Urine Bacteria Urine Mucus 05/30/19 05/30/19 05/30/19 20:10 20:55 23:45 WBC RBC Hgb Hct MCV MCH MCHC RDW Std Deviation RDW Coeff of [place] Plt Count MPV Immature Gran % (Auto) Neut % (Auto) Lymph % (Auto) Lares % (Auto) Eos % (Auto) Baso % (Auto) Absolute Neuts (auto) Absolute Lymphs (auto) Nucleated RBC % Differential Comment Platelet Estimate Polychromasia Anisocytosis Macrocytosis PT INR APTT Sodium Potassium Chloride Carbon Dioxide Anion Gap BUN Creatinine Estim Creat Clear Calc Est GFR (MDRD) Af Amer Est GFR (MDRD) Non-Af BUN/Creatinine Ratio Glucose Calcium Magnesium 2.6 Total Bilirubin AST ALT Alkaline Phosphatase Troponin I 0.112 H B-Natriuretic Peptide Total Protein Albumin Globulin Albumin/Globulin Ratio TSH 4.29 H Urine Color Naheed Urine Clarity Sl Cldy Urine pH 5.0 Ur Specific [place] 1.020 Urine Protein 100 H Urine Glucose (UA) Normal Urine Ketones 5 H Urine Occult Blood 10 H Urine Nitrite Negative Urine Bilirubin 1 H Urine Urobilinogen 1 H Ur Leukocyte Esterase 100 H Urine RBC 0-5 SEEN Urine WBC 5-10 SEEN Ur Squamous Epith Cells 0-5 SEEN Urine Bacteria 0 SEEN Urine Mucus 0 SEEN 05/31/19 05/31/19 05/31/19 02:05 04:10 04:10 WBC 13.6 H RBC 2.73 L Hgb 9.3 L Hct 30.5 L MCV 111.7 H MCH 34.1 H MCHC 30.5 L RDW Std Deviation 80.5 H RDW Coeff of Myke 20.0 H Plt Count 180 MPV 12.6 H Immature Gran % (Auto) 0.800 Neut % (Auto) 81.1 H Lymph % (Auto) 10.0 L Lares % (Auto) 7.3 Eos % (Auto) 0.7 Baso % (Auto) 0.1 Absolute Neuts (auto) 11.0 H Absolute Lymphs (auto) 1.36 Nucleated RBC % 0.1 Differential Comment Platelet Estimate ADEQUATE Polychromasia 1+ Anisocytosis 2+ Macrocytosis 2+ PT INR APTT Sodium 140 Potassium 4.8 Chloride 107 Carbon Dioxide 25.0 Anion Gap 8 BUN 75 H Creatinine 2.69 H Estim Creat Clear Calc 12.85 Est GFR (MDRD) Af Amer 22 L Est GFR (MDRD) Non-Af 18 L BUN/Creatinine Ratio 27.9 H Glucose 127 H Calcium 8.1 L Magnesium Total Bilirubin 0.90 AST 95 H ALT 111 H Alkaline Phosphatase 142 H Troponin I 0.119 H B-Natriuretic Peptide Total Protein 6.6 Albumin 2.4 L Globulin 4.2 Albumin/Globulin Ratio 0.6 L TSH Urine Color Urine Clarity Urine pH Ur Specific [place] Urine Protein Urine Glucose (UA) Urine Ketones Urine Occult Blood Urine Nitrite Urine Bilirubin Urine Urobilinogen Ur Leukocyte Esterase Urine RBC Urine WBC Ur Squamous Epith Cells Urine Bacteria Urine Mucus 05/31/19 04:10 WBC RBC Hgb Hct MCV MCH MCHC RDW Std Deviation RDW Coeff of [place]ke Plt Count MPV Immature Gran % (Auto) Neut % (Auto) Lymph % (Auto) Lares % (Auto) Eos % (Auto) Baso % (Auto) Absolute Neuts (auto) Absolute Lymphs (auto) Nucleated RBC % Differential Comment Platelet Estimate Polychromasia Anisocytosis Macrocytosis PT INR APTT Sodium Potassium Chloride Carbon Dioxide Anion Gap BUN Creatinine Estim Creat Clear Calc Est GFR (MDRD) Af Amer Est GFR (MDRD) Non-Af BUN/Creatinine Ratio Glucose Calcium Magnesium Total Bilirubin AST ALT Alkaline Phosphatase Troponin I B-Natriuretic Peptide 4876.2 H Total Protein Albumin Globulin Albumin/Globulin Ratio TSH Urine Color Urine Clarity Urine pH Ur Specific [place] Urine Protein Urine Glucose (UA) Urine Ketones Urine Occult Blood Urine Nitrite Urine Bilirubin Urine Urobilinogen Ur Leukocyte Esterase Urine RBC Urine WBC Ur Squamous Epith Cells Urine Bacteria Urine Mucus Microbiology 05/30/19 23:26 Mucosa - Nasopharyngeal Respiratory Panel (PCR) - Final 05/30/19 20:55 Urine Catheter - Catheter Legionella Antigen - Final 05/30/19 20:55 Urine Catheter - Catheter Streptococcus pneumoniae Antigen (M - Final Clinical Impression(s) from Imaging Studies Brain CT 05/30/19 20:12 IMPRESSION: Chronic involutional changes of the brain. No change and no acute abnormality. Electronically Signed: Blu Freitas MD at 20:33 EST , Service support , Chest X-Ray 05/30/19 20:24 IMPRESSION: Probable diffuse congestion and interstitial edema. Probable bilateral atelectasis or infiltrate in both lung bases worse on the right. Probable bilateral [id number] pleural effusions. Electronically Signed: Blu Freitas MD at 20:40 EST , Service support , Chest X-Ray 05/31/19 05:55 IMPRESSION: Bilateral pleural effusions and associated pulmonary opacities are probably grossly similar given differences in patient position. at [id number] Reported and signed by: Luciana Sánchez MD Electronically Signed: Luciana Sánchez MD at 6:47 EST Tel , Service support , Brain MRI 05/31/19 08:00 IMPRESSION: Involutional changes of the brain, as described above. Motion limited exam. Electronically Signed: Tim Abrams MD at 16:32 EST , Service support , Speech Swallowing Recommendations Diet Level Pureed textures,[place]-thick Liquids Supervision 1:1 Close Supervision Compensatory Strategies Small Bites,Small Sips,Feed only when alert,HOB at 90 degrees,Remain up 30 Medical Necessity - Tobacco Use Smoking Status: Never smoker Tobacco Use: Non-smoker Assessment/Plan All Active Problems (Last Updated 05/30/19 @ 12:57 by Carol Perry NP-Sg) Debility (Acute) Fall (Acute) Encephalopathy (Acute) Acute on chronic kidney failure (Acute) Acute on chronic systolic and diastolic heart failure, NYHA class 4 (Acute) Dysphagia (Acute) Seizure (Acute) Hypoxia (Acute) Aspiration pneumonia (Acute) Dyspnea (Acute) History of coronary artery stent placement (Resolved 05/21/09) Acute on chronic systolic (congestive) heart failure (Acute) ARF (acute renal failure) (Resolved) Fracture of femoral neck, left (Resolved) Hypertensive emergency (Resolved) Injury of left shoulder and upper arm (Resolved) Pyelonephritis, acute (Resolved) Scalp laceration (Resolved) Chronic diastolic (congestive) heart failure (Ruled-out) RECOMMENDATIONS: 1. Continue Keppra per neurology recommendations. 2. Continue modified diet and compensatory strategies per speech therapy. 3. Restart Lasix regimen today. 4. If the patient remains stable over the next 24 hours, Unasyn can likely be discontinued. 5. Encourage incentive spirometer use and mobilize patient as tolerated. 6. The patient is medically stable for transfer out of the intensive care unit. 7. Given the patient's lack of further ICU or pulmonary needs, will sign off. Please call with any additional questions. IMPRESSIONS: 1. Encephalopathy, likely secondary to sentinel seizure activity Resolved. Continue seizure precautions. Continue Keppra and as needed Ativan. MRI and EEG were largely unrevealing. 2. Acute hypoxemic respiratory insufficiency Concern for potential aspiration event vs CHF. If the patient remains afebrile over the next 24 hours and does not develop a cough that is productive of sputum, recommend discontinuation of Unasyn. Given the findings noted on chest x-ray combined with elevated BNP, will restart Lasix regimen. The patient is currently maintaining appropriate oxygen saturations on room air. Continue to encourage incentive spirometer use and mobilize patient as tolerated. 3. History of dysphasia in the setting of a diagnosis of Sjogren's syndrome The patient was formally evaluated by speech therapy. Continue current dietary recommendations and compensatory strategies. Speech Swallowing Recommendations Diet Level Pureed textures,[place]-thick Liquids Supervision 1:1 Close Supervision Compensatory Strategies Small Bites,Small Sips,Feed only when alert,HOB at 90 degrees,Remain up 30 4. Chronic combined systolic and diastolic heart failure The patient does have known combined systolic and diastolic heart failure with an ejection fraction of 20%. Accordingly, her Lasix regimen will be restarted today. 5. Hypertension/hyperlipidemia/coronary artery disease/anemia/rheumatoid arthritis/chronic transaminitis Complicates care, management, recovery and prognosis. Okay to continue home medications. Physical therapy to work with the patient. This note was generated with [employer] dictation software. It may contain incorrect words, spelling, and punctuation that were not noted in checking the note before signing. Code Visit Inpatient E&M: 86896 Subs Hosp L2
--- NOTE | 2019-06-01 07:41 | PCM.PN.HOSP ---
Patient Problems: Active and Suspected Problems (Last Updated 05/30/19 @ 12:57 by Carol Perry NP-C) Acute on chronic kidney failure (Acute) Seizure (Acute) Hypoxia (Acute) Aspiration pneumonia (Acute) Reason for Visit: Acute respiratory insufficiency and seizure episode Objective: No fever or chills. Blood pressure stable. No episode of seizure. MRI and EEG reviewed. Positive fluid balance 1500 mL. Diuretics resumed. Vitals/I&O's: Vital Signs Temp Pulse Resp BP Pulse Ox 98.8 F 72 20 H 126/89 H 90 06/01/19 06:00 06/01/19 06:00 06/01/19 06:00 06/01/19 06:00 06/01/19 06:00 Oxygen Flow Rate (L/min) 2 Oxygen Delivery Method Room Air Weight: 108 lb 7.479 oz Body Mass Index (BMI) 18.6 Intake and Output for Last 24 Hours 05/30/19 05/31/19 06/01/19 23:59 23:59 23:59 Intake Total 437.5 / 437.75 1725.75 / 1945.75 310 / 310 Output Total 150 / 150 325 / 575 475 / 475 Balance 287.5 / 287.75 1400.75 / 1370.75 -165 / -165 General: Alert, Oriented x3, Cooperative HEENT: Atraumatic, PERRLA, EOMI, Normocephalic Neck: Supple, No JVD, Negative Carotid Bruits Lungs: Clear to auscultation, No rhonchi, No wheeze, No rales, Diminished Cardiovascular: Regular rate, Regular Rhythm, Normal S1, Normal S2, No murmurs, - - PVCs on cardiac cath lab technologist. Telemetry reviewed Abdomen: Bowel Sounds Present, Soft, Non Tender, Non-Distended Extremities: No edema, Capillary Refill Less than 3 Seconds Skin: No rashes, No breakdown Musculoskeletal: No Tenderness to Palpation of Joints or Extremities, Arthritic Changes Neurological: Cranial nerves II-XII grossly intact, Deep Tendon Reflexes 2+/4 and Symmetrical, Neuro grossly intact Psych/Mental Status: Normal Affect, Appropriate Microbiology Past 72 Hours 05/30/19 23:26 Mucosa - Nasopharyngeal Respiratory Panel (PCR) - Final 05/30/19 20:55 Urine Catheter - Catheter Legionella Antigen - Final 05/30/19 20:55 Urine Catheter - Catheter Streptococcus pneumoniae Antigen (M - Final Laboratory Results 05/31/19 04:10: B-Natriuretic Peptide 4876.2 H Current Medications Acetaminophen (Tylenol) 650 mg RECTAL Q4H PRN PRN PRN Reason: fever, pain 1-10 Last Admin: 05/31/19 03:55 Dose: 650 mg Documented by: Albuterol Sulfate (Ventolin Aerosols) 2.5 mg INHALATION Q2H PRN PRN PRN Reason: dyspnea, wheezing Aspirin (Aspirin) 300 mg RECTAL DAILY [facility] Brimonidine Tartrate (Brimonidine 0.2% 5ml Bottle) 1 drop EACH EYE BID [facility] Last Admin: 05/31/19 21:18 Dose: 1 drop Documented by: Furosemide (Lasix) 40 mg PO BID@1000,1800 JOSLYN Glucagon () 1 mg IM .X1 PRN PRN Reason: Hypoglycemia Heparin Sodium (Beef Lung) () 50 units IV UD PRN PRN Reason: Port-a-Cath (VAD)Heparin Flush Heparin Sodium (Porcine) (Heparin Na) 5,000 unit SC Q12 [facility] Last Admin: 05/31/19 21:17 Dose: 5,000 unit Documented by: Hydralazine HCl (Apresoline Iv) 10 mg IV Q4H PRN PRN PRN Reason: SBP > 160 Pantoprazole Sodium 40 mg/ (Sodium Chloride) 110 mls @ 330 mls/hr IV Q12 [facility] Last Infusion: 05/31/19 21:37 Dose: Infused Documented by: Levetiracetam 500 mg/ Sodium (Chloride) 105 mls @ 400 mls/hr IV Q12 [facility] Last Infusion: 05/31/19 22:23 Dose: Infused Documented by: Sodium Chloride () 250 mls @ 15 mls/hr IV .[id number] PRN PRN Reason: Saline Flush Last Infusion: 05/31/19 21:44 Dose: 0 mls/hr Documented by: Sodium Chloride () 250 mls @ 15 mls/hr IV .[id number] PRN PRN Reason: Additional IVPB Infusion Dextrose (Dextrose 10%-Water) 250 mls @ 999 mls/hr IV .Q16M PRN; Protocol PRN Reason: HYPOGLYCEMIA Ampicillin Sodium/Sulbactam (Sodium 3 gm/ Sodium Chloride) 112 mls @ 150 mls/hr IV Q12 [facility] Last Infusion: 05/31/19 22:11 Dose: Infused Documented by: Latanoprost (Xalatan Opthalmic) 1 drop EACH EYE QHS [facility] Last Admin: 05/31/19 21:18 Dose: 1 drop Documented by: Lorazepam (Ativan) 1 mg IV Q4H PRN PRN PRN Reason: seizure activity Ondansetron HCl (Zofran) 4 mg IV Q8H PRN PRN PRN Reason: NAUSEA/VOMITING Prochlorperazine Edisylate (Compazine Iv) 5 mg IV Q4H PRN PRN PRN Reason: Breakthrough Nausea/Vomiting Psyllium Hydrophilic Mucilloid (Metamucil) 1 packet PO DAILY PRN PRN PRN Reason: Constipation Sodium Chloride () 10 - 40 ml IV UD PRN PRN Reason: Port-a-Cath (VAD) Flush Last Admin: 05/31/19 12:09 Dose: 20 ml Documented by: Sodium Chloride (0.9% Nacl (Sterile) Posiflush) 10 - 40 ml IV UD PRN PRN Reason: Port access or dressing change Timolol Maleate (Timoptic) 1 drop EACH EYE BID [facility] Last Admin: 05/31/19 21:19 Dose: 1 drop Documented by: STROKE Vital Signs/Narrative: Vital Signs Temp Pulse Resp BP Pulse Ox 06/01/19 06:00 98.8 F 72 20 H 126/89 H 90 06/01/19 05:00 98.8 F 71 15 142/60 H 91 06/01/19 04:00 98.5 F 70 16 150/61 H 98 Medical Necessity - Tobacco Use Smoking Status: Never smoker Tobacco Use: Non-smoker Assessment/Plan All Active Problems (Last Updated 05/30/19 @ 12:57 by MICHELLE He) Debility (Acute) Fall (Acute) Encephalopathy (Acute) Acute on chronic kidney failure (Acute) Acute on chronic systolic and diastolic heart failure, NYHA class 4 (Acute) Dysphagia (Acute) Seizure (Acute) Hypoxia (Acute) Aspiration pneumonia (Acute) Dyspnea (Acute) History of coronary artery stent placement (Resolved 05/21/09) Acute on chronic systolic (congestive) heart failure (Acute) ARF (acute renal failure) (Resolved) Fracture of femoral neck, left (Resolved) Hypertensive emergency (Resolved) Injury of left shoulder and upper arm (Resolved) Pyelonephritis, acute (Resolved) Scalp laceration (Resolved) Chronic diastolic (congestive) heart failure (Ruled-out) The patient is a 78 year old F with multiple comorbidities is being admitted for new onset of seizure episode x2, preceded by episode of choking, hypoxia and unresponsiveness in TCU. Her pulse ox dropped into the low 60s. Patient was postictal after that. Rapid response was called and then she was transferred to ER Patient had second seizure episode in ER 1. New onset of seizure episode with unresponsiveness: Patient was also found transient hypoxia. Second episode of seizure witnessed by nurses in ER lasted for about [address] brain does not show acute intracranial process. Patient was found dehydrated and had IV fluid 150 mill per hour in ED and then 75 mill per hour ICU. MRI is ordered. On Keppra 500 mg every 12. IV Ativan as needed for seizure episode. SOC tele neurology consult reviewed. I agree with the plan of Keppra and Ativan as needed. EEG reported as no epileptiform discharges but mild to moderate generalized slowing of waves suggestive of encephalopathy. 06/01/2019: Diuretics regimen. IV fluid discontinued. MRI reported chronic involutional changes with motion artifact but no acute intracranial abnormality. Patient is a stable to be transferred to PCU as per row boss recommendation 2. Suspected aspiration pneumonia with associated hypoxia: Chest x-ray shows bilateral diffuse opacity, possible interstitial edema/bilateral atelectasis and effusion. Initially started on vancomycin and Zosyn but is changed to Unasyn to avoid risk of seizure with Zosyn. Urinary antigens and respiratory panel are negative. Currently n.p.o. pending speech therapist evaluation. 06/01/2019: Patient evaluated by speech therapist. Diet resumed as per speech therapist recommendation. On Unasyn for 1 more day if patient does not get fever or cough with purulent sputum as per water pollution control technician. 3. chronic systolic and diastolic CHF, class IV-echocardiogram 04/29/2019 demonstrated EF 20%, stage I diastolic dysfunction, moderate mitral valve insufficiency, mild aortic valve insufficiency, pulmonary artery systolic pressure 36 mmHg. Currently patient looks dehydrated but later on can resume Lasix 40 mg twice daily, once euvolemic. Strict input and output. Daily weight. Light Jose wrap bandage bilateral lower extremities as patient probably has peripheral arterial disease. 06/01/2019: Patient had net +1500 mils fluid. Diuretics resumed. Patient could not tolerate jose wrap bandage. 4. CKD stage IV-patient seen by [place] clipper. Renal ultrasound demonstrated bilateral renal cortical atrophy indicative of medical renal disease. BUN/creatinine 75/2.69. Kidney profile is better than previous hospital stay 3. Mildly elevated troponin-suspect demand ischemia/seizure episode/CKD stage IV: Patient does not have chest pain. Troponin 0.012, 0.119. On telemetry: Few PVCs but hemodynamically stable 4. CAD with history of PCI-continue statin, isosorbide, metoprolol, Ranexa. Patient follows with Dr. Hernandez. Patient was deemed not a good candidate for cardiac cath/PCI because of history of severe anemia/GI bleed and also CKD stage IV 5. Hypertension-once patient is stable, resume isosorbide, metoprolol regimen. 6. Hyperlipidemia-continue statin. 7. Glaucoma-continue home ophthalmic regimen. 8. Rheumatoid arthritis/Sjogren's/peripheral neuropathy-no longer on regimen, stable. 9. Chronic macrocytic anemia-stable, trend CBC. 10. Elevated transaminases probably secondary to congestive liver disease from CHF. AST/ALT trending down.Right upper quadrant sonogram was done and reported 3 mm gallbladder polyp. Liver shows normal echogenicity no mass identified. CBD 3 mm. 11. Debility with recurrent falls and fracture of medial left inferior and superior pubic rami on 05/01/2019: Patient has gait instability. Continue PT/OT stable. 12. PAD with diminished peripheral pulses- MOOSE: Right side 1.19, left 0.9, DBI: Right 1.16, left 0.9. Right-sided suggestive of possible chronic arteriosclerosis/calcification. Vascular surgeon was consulted during last admission but had not seen the patient. Follow-up with Dr. Deleon as an outpatient Advanced directive/CODE STATUS: DNR CC arrest Total time of the visit including total time spent in counseling or coordination of care, (more than 50% of the total time, spent in obtaining medical information from nurses and other ancillary care providers), discussion with content management consultant and patient's son and daughter and nursing staff, review of labs and imaging is 30 minutes Microbiology Past 72 Hours 05/30/19 23:26 Mucosa - Nasopharyngeal Respiratory Panel (PCR) - Final 05/30/19 20:55 Urine Catheter - Catheter Legionella Antigen - Final 05/30/19 20:55 Urine Catheter - Catheter Streptococcus pneumoniae Antigen (M - Final Laboratory Results 05/31/19 04:10: B-Natriuretic Peptide 4876.2 H Clinical Impression(s) from Imaging Studies Brain CT 05/30/19 20:12 IMPRESSION: Chronic involutional changes of the brain. No change and no acute abnormality. Chest X-Ray 05/30/19 20:24 IMPRESSION: Probable diffuse congestion and interstitial edema. Probable bilateral atelectasis or infiltrate in both lung bases worse on the right. Probable bilateral [id number] pleural effusions. Chest X-Ray 05/31/19 05:55 IMPRESSION: Bilateral pleural effusions and associated pulmonary opacities are probably grossly similar given differences in patient position. Brain MRI 05/31/19 08:00 IMPRESSION: Involutional changes of the brain, as described above. Motion limited exam. Code Visit Inpatient E&M: 12015 Subs Hosp L3
[2019-06-01 09:50] LABS: Absolute Lymphocyte Count 1.27 X10^3/uL (0.83-4.51); Absolute Neutrophil Count 11.2 X10^3/uL (2.0-7.7); Basophil# 0.03 X10^3/uL; Basophil% 0.2 % (0-1); Eosinophil# 0.28 X10^3/uL; Hemoglobin 10.2 g/dL (12.0-15.0); Lymphocyte # 1.27 X10^3/ul (4.0); Lymphocyte % 9.1 % (19-41); Mean Corp Hgb Conc 30.9 g/dL (32-36); Mean Corpuscular Hgb 34.8 pg (27.0-32.0); Mean Corpuscular Volume 112.6 fL (81-99); Mean Platelet Vol. 12.3 fl (6.2-12.0); Monocyte# 1.13 X10^3/uL; Monocyte% 8.1 % (0-10); NRBC Flagged by Analyzer 0.4 % (0-5); Neutrophil # 11.19 X10^3/uL (2.7-7.7); Neutrophil % 79.8 % (47-70); POSITIVE MORPHOLOGY YES; Platelet Count 222 K/mm3 (150-450); RBC Distribution Width CV 20.5 % (11.6-14.6); RBC Distribution Width SD 82.9 fl (35.1-43.9); Red Blood Count 2.93 M/mm3 (4.2-5.4)
[2019-06-01 10:00] LABS: Differential Indicated SCAN CRITERIA MET
[2019-06-01 10:06] LABS: ALB/GLOB Ratio 0.6 RATIO (0.9-2.4); AST(SGOT) 80 U/L (15-37); Alanine Aminotransfer ALT/SGPT 98 U/L (13-56); Albumin, Serum 2.5 g/dL (3.2-5.0); Alkaline Phosphatase 146 U/L (45-117); Anion Gap 8 (5-15); BUN 70 mg/dL (7-18); BUN/Creat Ratio 26.7 RATIO (10-20); Calcium,Total 8.4 mg/dL (8.5-10.1); Chloride 109 mmol/L (98-107); Creatinine, Serum 2.62 mg/dL (0.55-1.02); EST Glomerular Filtration Rate 19 mL/min (>60); Est Glom Filt Rate - Afr Amer 23 mL/min (>60); Estimated Creatinine Clearance 13.52 ml/min; Globulin 4.5 g/dL (2.2-4.2); Glucose 123 mg/dL (74-106); Potassium 4.2 mmol/L (3.5-5.1); Sodium Level 141 mmol/L (136-145)
[2019-06-01 10:23] LABS: Anisocytosis 1+
[2019-06-01] MEDS: 0.9% Saline Lock 10 ML Syringe IV ×3 (10:24→22:12)
[2019-06-01] MEDS: Heparin Injection (Vial) 5,000 UNIT/ML VIAL 5000 UNIT SC ×2 (10:25→22:13)
[2019-06-01] MEDS: Furosemide 40 MG Tablet PO ×2 (10:26→17:46)
[2019-06-01] MEDS: BRIMONIDINE 0.2% 5ML BOTTLE 1 DRP EACH EYE ×2 (11:13→21:55)
[2019-06-01] MEDS: LIFITEGRAST 1 EACH DROPERETTE OP ×2 (11:14→21:56)
[2019-06-01] MEDS: Timolol 0.5% 5ML OPTH.BTL 1 DRP EACH EYE ×2 (11:14→21:54)
[2019-06-01] MEDS: Fluticasone 0.05% 1 SPRAY NASAL.SRY NASAL (12:57)
[2019-06-01] MEDS: Metoprolol Tartrate 50 MG Tablet 75 MG PO ×2 (12:58→22:25)
[2019-06-01] MEDS: Ranolazine 500 MG Tablet 1000 MG PO ×2 (12:59→22:25)
[2019-06-01] MEDS: Calcium Carb/Vitamin D 1 TABLET Tablet PO (13:00)
[2019-06-01] MEDS: Polyethylene Glycol 3350 17 GM PACKET PO (17:46)
[2019-06-01] MEDS: Isosorbide Mononitrate 60 MG Tablet PO (17:46)
[2019-06-01] MEDS: Acetaminophen 325 MG Tablet 650 MG PO (18:33)
[2019-06-01] MEDS: Latanoprost 0.005% 1 Bottle 1 DRP EACH EYE (21:55)
[2019-06-01] MEDS: Atorvastatin Calcium 20 MG Tablet PO (22:25)
[2019-06-02] VITALS (13 sets, daily range): BP systolic 134–149; BP diastolic 56–76; PULSE 57–73; RESP 15–18; TEMP 36.4–36.7; O2SAT 97–99
[2019-06-02] MEDS: 0.9% Saline Lock 10 ML Syringe IV ×3 (04:54→22:16)
[2019-06-02 05:06] LABS: Absolute Neutrophil Count 8.4 X10^3/uL (2.0-7.7); Basophil# 0.02 X10^3/uL; Basophil% 0.2 % (0-1); Eosinophil# 0.33 X10^3/uL; Eosinophils% 2.9 % (0-5); Hematocrit 31.6 % (37-47); Hemoglobin 9.6 g/dL (12.0-15.0); Lymphocyte % 11.6 % (19-41); Mean Corp Hgb Conc 30.4 g/dL (32-36); Mean Corpuscular Hgb 34.3 pg (27.0-32.0); Mean Corpuscular Volume 112.9 fL (81-99); Mean Platelet Vol. 12.4 fl (6.2-12.0); Monocyte# 1.08 X10^3/uL; Monocyte% 9.6 % (0-10); NRBC Flagged by Analyzer 0.3 % (0-5); Neutrophil % 74.9 % (47-70); POSITIVE MORPHOLOGY YES; Platelet Count 186 K/mm3 (150-450); RBC Distribution Width CV 20.6 % (11.6-14.6); RBC Distribution Width SD 85.7 fl (35.1-43.9); White Blood Count 11.2 K/mm3 (4.4-11.0)
[2019-06-02 05:10] LABS: Differential Indicated SCAN CRITERIA MET
[2019-06-02 05:31] LABS: ALB/GLOB Ratio 0.5 RATIO (0.9-2.4); AST(SGOT) 60 U/L (15-37); Alanine Aminotransfer ALT/SGPT 76 U/L (13-56); Albumin, Serum 2.2 g/dL (3.2-5.0); Alkaline Phosphatase 141 U/L (45-117); Anion Gap 7 (5-15); BUN 62 mg/dL (7-18); BUN/Creat Ratio 27.4 RATIO (10-20); Calcium,Total 8.4 mg/dL (8.5-10.1); Chloride 113 mmol/L (98-107); Creatinine, Serum 2.26 mg/dL (0.55-1.02); EST Glomerular Filtration Rate 22 mL/min (>60); Est Glom Filt Rate - Afr Amer 27 mL/min (>60); Estimated Creatinine Clearance 15.68 ml/min; Globulin 4.3 g/dL (2.2-4.2); Glucose 100 mg/dL (74-106); Potassium 4.1 mmol/L (3.5-5.1); Protein, Total 6.5 g/dL (6.4-8.2); Sodium Level 145 mmol/L (136-145)
[2019-06-02 05:32] LABS: Differential Comment SCANNED; Macrocytosis 2+; Microcytosis 1+; Target Cells RARE
--- NOTE | 2019-06-02 10:32 | CASEMGMT ---
Palliative care was here, spoke with patient and family about Palliative Care and Hospice. Patient and family are going to discuss what they would like and Alma from Palliative will talk with them again. SW accompanied PCU Blown Film Extrusion Operator to talk with family about DNR. SW also answered some other questions they had. At this time we are waiting on insurance to approve patient to go back to TCU for rehab. Arin BARR MSW
[2019-06-02] MEDS: Ranolazine 500 MG Tablet 1000 MG PO ×2 (10:33→22:22)
[2019-06-02] MEDS: Isosorbide Mononitrate 60 MG Tablet PO (10:33)
[2019-06-02] MEDS: Polyethylene Glycol 3350 17 GM PACKET PO (10:33)
[2019-06-02] MEDS: Calcium Carb/Vitamin D 1 TABLET Tablet PO ×2 (10:34→17:32)
[2019-06-02] MEDS: BRIMONIDINE 0.2% 5ML BOTTLE 1 DRP EACH EYE ×2 (10:34→22:03)
[2019-06-02] MEDS: Heparin Injection (Vial) 5,000 UNIT/ML VIAL 5000 UNIT SC ×2 (10:35→22:06)
[2019-06-02] MEDS: LIFITEGRAST 1 EACH DROPERETTE OP ×2 (10:36→22:03)
[2019-06-02] MEDS: Metoprolol Tartrate 50 MG Tablet 75 MG PO ×2 (10:36→22:21)
[2019-06-02] MEDS: Timolol 0.5% 5ML OPTH.BTL 1 DRP EACH EYE ×2 (10:37→22:03)
[2019-06-02] MEDS: Furosemide 40 MG Tablet PO ×2 (10:52→17:32)
[2019-06-02] MEDS: PARoxetine 10 MG Tablet PO (12:37)
--- NOTE | 2019-06-02 13:49 | PN_ITS ---
Patient Problems: Active and Suspected Problems (Last Updated 05/30/19 @ 12:57 by Carol Perry NP-C) Acute on chronic kidney failure (Acute) Seizure (Acute) Hypoxia (Acute) Aspiration pneumonia (Acute) Reason for Visit: Patient seems to be on her baseline. No shortness of breath or chest pain. No fever or chills, T-max 99.3. Vitals/I&O's: Vital Signs Temp Pulse Resp BP Pulse Ox 97.5 F L 73 18 146/72 H 99 06/02/19 10:20 06/02/19 10:59 06/02/19 10:20 06/02/19 10:20 06/02/19 10:20 Oxygen Flow Rate (L/min) 2 Oxygen Delivery Method Room Air Weight: 110 lb 7.225 oz Body Mass Index (BMI) 18.6 Intake and Output for Last 24 Hours 05/31/19 06/01/19 06/02/19 23:59 23:59 23:59 Intake Total 1725.75 / 1945.75 1367 / 1479 565 / 565 Output Total 325 / 575 1125 / 1125 700 / 700 Balance 1400.75 / 1370.75 242 / 354 -135 / -135 General: Alert, Oriented x3, Cooperative HEENT: Atraumatic, PERRLA, EOMI, Normocephalic Oral: - - Has dysphagia. Neck: Supple, No JVD, Negative Carotid Bruits Lungs: Clear to auscultation, No rhonchi, No wheeze, No rales, Diminished - Entry diminished in bilateral lung bases. Cardiovascular: Regular rate, Regular Rhythm, Normal S1, Normal S2, No murmurs Abdomen: Bowel Sounds Present, Soft, Non Tender, Non-Distended Extremities: No edema, Capillary Refill Less than 3 Seconds Skin: No rashes, No breakdown Musculoskeletal: No Tenderness to Palpation of Joints or Extremities, Arthritic Changes, Muscle Wasting Neurological: Cranial nerves II-XII grossly intact, Deep Tendon Reflexes 2+/4 and Symmetrical, Neuro grossly intact Psych/Mental Status: Normal Affect, Appropriate Microbiology Past 72 Hours 05/30/19 23:26 Mucosa - Nasopharyngeal Respiratory Panel (PCR) - Final 05/30/19 20:55 Urine Catheter - Catheter Legionella Antigen - Final 05/30/19 20:55 Urine Catheter - Catheter Streptococcus pneumoniae Antigen (M - Final Laboratory Results 06/02/19 04:55: WBC 11.2 H, RBC 2.80 L, Hgb 9.6 L, Hct 31.6 L, MCV 112.9 H, MCH 34.3 H, MCHC 30.4 L, RDW Std Deviation 85.7 H, RDW Coeff of Myke 20.6 H, Plt Count 186, MPV 12.4 H, Immature Gran % (Auto) 0.800, Neut % (Auto) 74.9 H, Lymph % (Auto) 11.6 L, [place] % (Auto) 9.6, Eos % (Auto) 2.9, Baso % (Auto) 0.2, Absolute Neuts (auto) 8.4 H, Absolute Lymphs (auto) 1.30, Nucleated RBC % 0.3, Differential Comment SCANNED, Microcytosis 1+, Macrocytosis 2+, Target Cells RARE 06/02/19 04:55: Sodium 145, Potassium 4.1, Chloride 113 H, Carbon Dioxide 25.0, Anion Gap 7, BUN 62 H, Creatinine 2.26 H, Estim Creat Clear Calc 15.68, Est GFR (MDRD) Af Amer 27 L, Est GFR (MDRD) Non-Af 22 L, BUN/Creatinine Ratio 27.4 H, Glucose 100, Calcium 8.4 L, Total Bilirubin 0.70, AST 60 H, ALT 76 H, Alkaline Phosphatase 141 H, Total Protein 6.5, Albumin 2.2 L, Globulin 4.3 H, Albumin/Globulin Ratio 0.5 L Current Medications Acetaminophen (Tylenol) 650 mg RECTAL Q4H PRN PRN PRN Reason: fever, pain 1-10 Last Admin: 05/31/19 03:55 Dose: 650 mg Documented by: Acetaminophen (Tylenol) 650 mg PO Q4H PRN PRN PRN Reason: Pain Score 1-10/10 Last Admin: 06/01/19 18:33 Dose: 650 mg Documented by: Albuterol Sulfate (Ventolin Aerosols) 2.5 mg INHALATION Q2H PRN PRN PRN Reason: dyspnea, wheezing Alprazolam (Xanax) 0.125 mg PO BID PRN PRN PRN Reason: ANXIETY Atorvastatin Calcium (Lipitor) 20 mg PO QHS [facility] Last Admin: 06/01/19 22:25 Dose: 20 mg Documented by: Brimonidine Tartrate (Brimonidine 0.2% 5ml Bottle) 1 drop EACH EYE BID [facility] Last Admin: 06/02/19 10:34 Dose: 1 drop Documented by: Calcium/Vitamin D (Os-Osmany 500mg + D) 1 tablet PO BIDCM [facility] Last Admin: 06/02/19 10:34 Dose: 1 tablet Documented by: Fluticasone Propionate (Flonase Nasal [place]) 1 spray NASAL DAILY [facility] Last Admin: 06/02/19 10:47 Dose: Not Given Documented by: Furosemide (Lasix) 40 mg PO BID@1000,1800 [facility] Last Admin: 06/02/19 10:52 Dose: 40 mg Documented by: Glucagon () 1 mg IM .X1 PRN PRN Reason: Hypoglycemia Heparin Sodium (Beef Lung) () 50 units IV UD PRN PRN Reason: Port-a-Cath (VAD)Heparin Flush Heparin Sodium (Porcine) (Heparin Na) 5,000 unit SC Q12 [facility] Last Admin: 06/02/19 10:35 Dose: 5,000 unit Documented by: Hydralazine HCl (Apresoline Iv) 10 mg IV Q4H PRN PRN PRN Reason: SBP > 160 Pantoprazole Sodium 40 mg/ (Sodium Chloride) 110 mls @ 330 mls/hr IV Q12 [facility] Last Infusion: 06/02/19 11:18 Dose: Infused Documented by: Levetiracetam 500 mg/ Sodium (Chloride) 105 mls @ 400 mls/hr IV Q12 [facility] Last Infusion: 06/02/19 10:56 Dose: Infused Documented by: Sodium Chloride () 250 mls @ 15 mls/hr IV .[id number] PRN PRN Reason: Saline Flush Last Infusion: 06/02/19 00:24 Dose: 0 mls/hr Documented by: Sodium Chloride () 250 mls @ 15 mls/hr IV .[id number] PRN PRN Reason: Additional IVPB Infusion Dextrose (Dextrose 10%-Water) 250 mls @ 999 mls/hr IV .Q16M PRN; Protocol PRN Reason: HYPOGLYCEMIA Ampicillin Sodium/Sulbactam (Sodium 3 gm/ Sodium Chloride) 112 mls @ 150 mls/hr IV Q12 [facility] Last Infusion: 06/02/19 12:36 Dose: Infused Documented by: Isosorbide Mononitrate (Imdur) 60 mg PO DAILY [facility] Last Admin: 06/02/19 10:33 Dose: 60 mg Documented by: Latanoprost (Xalatan Opthalmic) 1 drop EACH EYE QHS [facility] Last Admin: 06/01/19 21:55 Dose: 1 drop Documented by: Lorazepam (Ativan) 1 mg IV Q4H PRN PRN PRN Reason: seizure activity Melatonin (Melatonin) 3 mg PO QHS [facility] Metoprolol Tartrate (Lopressor (Beta Brandyn)) 75 mg PO BID [facility] Last Admin: 06/02/19 10:36 Dose: 75 mg Documented by: Multivitamins/Minerals (Healthy Eyes (Bkc)) 1 capsule PO BID [facility] Last Admin: 06/02/19 10:35 Dose: Not Given Documented by: Nitroglycerin (Nitrostat) 0.4 mg SUBLINGUAL Q5M PRN PRN Reason: CARDIAC/CHEST PAIN Nutritional Formula (Lactose Free) (Ensure Enlive) 120 ml PO 4X/DAY [facility] Last Admin: 06/02/19 10:33 Dose: Not Given Documented by: Ondansetron HCl (Zofran) 4 mg IV Q8H PRN PRN PRN Reason: NAUSEA/VOMITING Paroxetine HCl (Paxil) 10 mg PO DAILY [facility] Last Admin: 06/02/19 12:37 Dose: 10 mg Documented by: Polyethylene Glycol (Miralax) 17 gm PO DAILY [facility] Last Admin: 06/02/19 10:33 Dose: 17 gm Documented by: Potassium Chloride (K-Dur) 10 meq PO QHS [facility] Last Admin: 06/01/19 22:25 Dose: 10 meq Documented by: Prochlorperazine Edisylate (Compazine Iv) 5 mg IV Q4H PRN PRN PRN Reason: Breakthrough Nausea/Vomiting Psyllium Hydrophilic Mucilloid (Metamucil) 1 packet PO DAILY PRN PRN PRN Reason: Constipation Ranolazine (Ranexa) 1,000 mg PO BID [facility] Last Admin: 06/02/19 10:33 Dose: 1,000 mg Documented by: Sodium Chloride () 10 - 40 ml IV UD PRN PRN Reason: Port-a-Cath (VAD) Flush Last Admin: 06/02/19 04:54 Dose: 30 ml Documented by: Sodium Chloride (0.9% Nacl (Sterile) Posiflush) 10 - 40 ml IV UD PRN PRN Reason: Port access or dressing change Timolol Maleate (Timoptic) 1 drop EACH EYE BID JOSLYN Last Admin: 06/02/19 10:37 Dose: 1 drop Documented by: STROKE Vital Signs/Narrative: Vital Signs Temp Pulse Resp BP Pulse Ox 06/02/19 10:59 73 06/02/19 10:36 71 06/02/19 10:20 97.5 F L 71 18 146/72 H 99 Medical Necessity - Tobacco Use Smoking Status: Never smoker Tobacco Use: Non-smoker Assessment/Plan All Active Problems (Last Updated 05/30/19 @ 12:57 by Carol Perry, KHOA-C) Debility (Acute) Fall (Acute) Encephalopathy (Acute) Acute on chronic kidney failure (Acute) Acute on chronic systolic and diastolic heart failure, NYHA class 4 (Acute) Dysphagia (Acute) Seizure (Acute) Hypoxia (Acute) Aspiration pneumonia (Acute) Dyspnea (Acute) History of coronary artery stent placement (Resolved 05/21/09) Acute on chronic systolic (congestive) heart failure (Acute) ARF (acute renal failure) (Resolved) Fracture of femoral neck, left (Resolved) Hypertensive emergency (Resolved) Injury of left shoulder and upper arm (Resolved) Pyelonephritis, acute (Resolved) Scalp laceration (Resolved) Chronic diastolic (congestive) heart failure (Ruled-out) The patient is a 78 year old F with multiple comorbidities is being admitted for new onset of seizure episode x2, preceded by episode of choking, hypoxia and unresponsiveness in TCU. Her pulse ox dropped into the low 60s. Patient was postictal after that. Rapid response was called and then she was transferred to ER Patient had second seizure episode in ER 1. New onset of seizure episode with unresponsiveness: Patient was also found transient hypoxia. Second episode of seizure witnessed by nurses in ER lasted for about [address] brain does not show acute intracranial process. Patient was found dehydrated and had IV fluid 150 mill per hour in ED and then 75 mill per hour ICU.On Keppra 500 mg every 12. IV Ativan as needed for seizure episode. SOC tele neurology consult reviewed. I agree with the plan of Keppra and Ativan as needed. EEG reported as no epileptiform discharges but mild to moderate generalized slowing of waves suggestive of encephalopathy. 06/01/2019: Diuretics regimen. IV fluid discontinued. MRI reported chronic involutional changes with motion artifact but no acute intracranial abnormality. Patient is a stable to be transferred to PCU as per net fisher recommendation. 06/02: EKG and imaging findings discussed with the patient family. Palliative care meeting was done. Patient family is not decisive about hospice yet. Need more time. Changed her CODE STATUS to DNR CC with no intubation or BiPAP. This was discussed with patient's daughter, patient's son and son-in-law. 2. Suspected aspiration pneumonia with associated hypoxia: Chest x-ray shows bilateral diffuse opacity, possible interstitial edema/bilateral atelectasis and effusion. Initially started on vancomycin and Zosyn but is changed to Unasyn to avoid risk of seizure with Zosyn. Urinary antigens and respiratory panel are negative. Currently n.p.o. pending speech therapist evaluation. 06/01/2019: Patient evaluated by speech therapist. Diet resumed as per speech therapist recommendation. 06/02: Unasyn discontinued patient does not have fever or cough. Remove the Hanson catheter. Urine dark color. 3. chronic systolic and diastolic CHF, class IV-echocardiogram 04/29/2019 demonstrated EF 20%, stage I diastolic dysfunction, moderate mitral valve insufficiency, mild aortic valve insufficiency, pulmonary artery systolic pressure 36 mmHg. Currently patient looks dehydrated but later on can resume Lasix 40 mg twice daily, once euvolemic. Strict input and output. Daily weight. Light Jose wrap bandage bilateral lower extremities as patient probably has peripheral arterial disease. 06/01/2019: Patient had net +1500 mils fluid. Diuretics resumed. Patient could not tolerate jose wrap bandage. 06/02: Positive fluid balance about 1800 mL. 4. 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 Renal ultrasound demonstrated bilateral renal cortical atrophy indicative of medical renal disease. BUN/creatinine 75/2.69. Kidney profile is better than previous hospital stay 3. Mildly elevated troponin-suspect demand ischemia/seizure episode/CKD stage IV: Patient does not have chest pain. Troponin 0.012, 0.119. On telemetry: Few PVCs but hemodynamically stable 4. CAD with history of PCI-continue statin, isosorbide, metoprolol, Ranexa. Patient follows with Dr. Hernandez. Patient was deemed not a good candidate for cardiac cath/PCI because of history of severe anemia/GI bleed and also CKD stage IV 5. Hypertension-once patient is stable, resume isosorbide, metoprolol regimen. 6. Hyperlipidemia-continue statin. 7. Glaucoma-continue home ophthalmic regimen. 8. Rheumatoid arthritis/Sjogren's/peripheral neuropathy-no longer on regimen, stable. 9. Chronic macrocytic anemia-stable, trend CBC. 10. Elevated transaminases probably secondary to congestive liver disease from CHF. AST/ALT trending down.Right upper quadrant sonogram was done and reported 3 mm gallbladder polyp. Liver shows normal echogenicity no mass identified. CBD 3 mm. 11. Debility with recurrent falls and fracture of medial left inferior and superior pubic rami on 05/01/2019: Patient has gait instability. Continue PT/OT stable. 12. PAD with diminished peripheral pulses- MOOSE: Right side 1.19, left 0.9, DBI: Right 1.16, left 0.9. Right-sided suggestive of possible chronic arteriosclerosis/calcification. Vascular surgeon was consulted during last admission but had not seen the patient. Follow-up with Dr. Deleon as an outpatient Advanced directive/CODE STATUS: DNR CC. Palliative care meeting was done. Total time of the visit including total time spent in counseling or coordination of care, (more than 50% of the total time, spent in obtaining medical information from nurses and other ancillary care providers), discussion with service consultant and patient's son and daughter and nursing staff, review of labs and imaging is 35 minutes Microbiology Past 72 Hours 05/30/19 23:26 Mucosa - Nasopharyngeal Respiratory Panel (PCR) - Final 05/30/19 20:55 Urine Catheter - Catheter Legionella Antigen - Final 05/30/19 20:55 Urine Catheter - Catheter Streptococcus pneumoniae Antigen (M - Final Laboratory Results 05/31/19 04:10: B-Natriuretic Peptide 4876.2 H Clinical Impression(s) from Imaging Studies Brain CT 05/30/19 20:12 IMPRESSION: Chronic involutional changes of the brain. No change and no acute abnormality. Chest X-Ray 05/30/19 20:24 IMPRESSION: Probable diffuse congestion and interstitial edema. Probable bilateral atelectasis or infiltrate in both lung bases worse on the right. Probable bilateral [id number] pleural effusions. Chest X-Ray 05/31/19 05:55 IMPRESSION: Bilateral pleural effusions and associated pulmonary opacities are probably grossly similar given differences in patient position. Brain MRI 05/31/19 08:00 IMPRESSION: Involutional changes of the brain, as described above. Motion limited exam. Code Visit Inpatient E&M: 73969 Subs Hosp L3
[2019-06-02] MEDS: Ondansetron 4 MG/2 ML Vial IV (15:11)
[2019-06-02] MEDS: Latanoprost 0.005% 1 Bottle 1 DRP EACH EYE (22:03)
[2019-06-02] MEDS: Atorvastatin Calcium 20 MG Tablet PO (22:21)
[2019-06-02] MEDS: MELATONIN 3 MG TABLET PO (22:22)
[2019-06-03] VITALS (7 sets, daily range): BP systolic 143–149; BP diastolic 55–65; PULSE 59–64; RESP 15–18; TEMP 36.6; O2SAT 98–100
[2019-06-03] MEDS: 0.9% Saline Lock 10 ML Syringe IV ×2 (04:54→09:24)
[2019-06-03 05:17] LABS: ALB/GLOB Ratio 0.5 RATIO (0.9-2.4); AST(SGOT) 49 U/L (15-37); Alanine Aminotransfer ALT/SGPT 66 U/L (13-56); Albumin, Serum 2.2 g/dL (3.2-5.0); Alkaline Phosphatase 130 U/L (45-117); Anion Gap 7 (5-15); BUN 56 mg/dL (7-18); BUN/Creat Ratio 25.6 RATIO (10-20); Calcium,Total 8.5 mg/dL (8.5-10.1); Chloride 112 mmol/L (98-107); Creatinine, Serum 2.19 mg/dL (0.55-1.02); EST Glomerular Filtration Rate 23 mL/min (>60); Est Glom Filt Rate - Afr Amer 28 mL/min (>60); Estimated Creatinine Clearance 16.47 ml/min; Globulin 4.4 g/dL (2.2-4.2); Glucose 107 mg/dL (74-106); Potassium 4.4 mmol/L (3.5-5.1); Protein, Total 6.6 g/dL (6.4-8.2); Sodium Level 144 mmol/L (136-145)
[2019-06-03] MEDS: Calcium Carb/Vitamin D 1 TABLET Tablet PO (08:01)
[2019-06-03] MEDS: Timolol 0.5% 5ML OPTH.BTL 1 DRP EACH EYE (09:29)
[2019-06-03] MEDS: Heparin Injection (Vial) 5,000 UNIT/ML VIAL 5000 UNIT SC (09:31)
[2019-06-03] MEDS: BRIMONIDINE 0.2% 5ML BOTTLE 1 DRP EACH EYE (09:37)
[2019-06-03] MEDS: Ranolazine 500 MG Tablet 1000 MG PO (09:38)
[2019-06-03] MEDS: Furosemide 40 MG Tablet PO (09:38)
[2019-06-03] MEDS: Isosorbide Mononitrate 60 MG Tablet PO (09:38)
[2019-06-03] MEDS: PARoxetine 10 MG Tablet PO (09:38)
[2019-06-03] MEDS: Metoprolol Tartrate 50 MG Tablet 75 MG PO (09:38)
[2019-06-03] MEDS: Multivitamin (Healthy Eyes) Capsule 1 CAP PO (09:38)
[2019-06-03] MEDS: LIFITEGRAST 1 EACH DROPERETTE OP (09:43)
[2019-06-03] MEDS: Polyethylene Glycol 3350 17 GM PACKET PO (09:44)
--- NOTE | 2019-06-03 11:06 | PCM.TXEXTCAR ---
- Diet 06/01/19 09:26 Diet: Regular Diet Food consistency:: Mechanical Soft/Ground Liquid Consistency:: Regular/Thin Is pt able to select menu?: Yes Diet Comments: supervised meals, chin tuck, straw OK, meds whole w/ purees - Routine Orders/Code Status Suppository Type: Dulcolax 10mg Suppository Frequency: Daily PRN Code Status: DNRCC - Wound(s) Right posterior forearm Wound Type: Skin Tear Left posterior forearm Wound Type: Skin Tear - Therapies Weight Bearing: Weight bearing as tolerated Extremity Affected:: Bilateral Lower Physical Therapy: Eval and Treat Occupational Therapy: Eval and Treat Speech Therapy: Eval and Treat - Allergies/Procedures Done in Hospital Allergies/Adverse Reactions: Allergies adalimumab [From Humira] Allergy (Verified 05/30/19 21:46) Rash ciprofloxacin HCl [From Cipro] Allergy (Verified 05/30/19 21:46) Unknown doxazosin Allergy (Verified 05/30/19 21:46) Other hydroxyzine [From Vistaril] Allergy (Verified 05/30/19 21:46) Other latex Allergy (Verified 05/30/19 21:46) Rash levofloxacin [From Levaquin] Allergy (Verified 05/30/19 21:46) Unknown lisinopril Allergy (Verified 05/30/19 21:46) Other COUGH Methotrexate Analogues Allergy (Verified 05/30/19 21:46) Hives naproxen Allergy (Verified 05/30/19 21:46) Unknown potassium clavulanate [From Augmentin] Allergy (Verified 05/30/19 21:46) Unknown Sulfa (Sulfonamide Antibiotics) Allergy (Verified 05/30/19 21:46) Unknown amlodipine Adverse Reaction (Severe, Verified 05/30/19 21:46) edema haloperidol lactate [From Haldol] Adverse Reaction (Unknown, Verified 05/30/19 21:46) agitation amoxicillin trihydrate [From Augmentin] Adverse Reaction (Verified 05/30/19 21:46) Upset Stomach hydromorphone HCl [From Dilaudid] Adverse Reaction (Verified 05/30/19 21:46) Other HALLUCINATIONS hydroxychloroquine sulfate [From Plaquenil] Adverse Reaction (Verified 05/30/19 21:46) Other VISION ISSUES - Type of Care/Length of Stay Estimated LOS: Convalescent Care Less Than 30 days Type of Care Needed: Skilled Rehab Potential: Fair Prognosis: Fair - Additional Orders/Day of Discharge Day of Discharge: 06/03/19 - Dietary and Speech Recommendations Dietitian Recommendations/Changes: Rec liberalize pt diet to Regular d/t pt poor PO intake. Will provide ensure enlive 120 ml at [facility] and ensure pudding or magic cup at meals to provide additional christopher/pro if consumed. - Follow Up Care Primary Care Physician: Demarco Lopez MD [Primary Care Provider] - Please follow up with your Primary Care Physician in: in 2 weeks Please Follow Up With: Demarco Lopez MD Please Follow Up With: Nahid Hernandez MD When: in 2 weeks Please Follow Up With: Zeferino Farrar MD When: in 2-3 weeks Please Follow Up With: Octaviano Macias DO When: to consider for hospice care
--- NOTE | 2019-06-03 11:55 | PHA.DC.MR ---
Pharmacy Service has performed discharge medication reconciliation for this patient. I spoke with Dr. Wiseman regarding duplicate furosemide 40mg PO BIDLX. He is aware and will D/C one of them because I am unable to do so. The patient's discharge medication list was reviewed for discrepancies and discrepancies were resolved. Home Medications Multivit-Min/FA/Lycopen/Lutein [Centrum Silver Tablet] 1 tab PO DAILY 04/01/15 Cholecalciferol (Vitamin D3) [Vitamin D3] 5,000 unit PO DAILY 06/06/18 Vit C/E/Zn/Coppr/Lutein/Zeaxan [Preservision Areds 2 Softgel] 1 cap PO BID 06/06/18 atorvastatin 20 mg tablet 20 mg PO QHS 06/21/18 potassium chloride 10 mEq capsule,extended release 10 meq PO QHS cap 06/21/18 Brimonidine Tartrate/Timolol [Combigan Eye Drops] 1 drp EACH EYE BID 02/13/19 Latanoprost 1 drp EACH EYE QHS 02/13/19 Ranolazine [Ranexa] 1,000 mg PO BID 03/20/19 Acetaminophen [Tylenol] 1,000 mg PO Q8H PRN 04/28/19 Lifitegrast [Xiidra] 1 ea OP BID 04/29/19 fluticasone propionate 50 mcg/actuation nasal spray,suspension 1 spray INTRANASAL DAILY PRN PRN 05/23/19 Calcium Carb/Vitamin D [Caltrate-600 With Vit D Tab] 1 tab PO BIDCM 05/27/19 Nitroglycerin [Nitrostat] 0.4 mg SUBLINGUAL Q5M PRN 05/27/19 Furosemide [Lasix] 40 mg PO BID@1000,1800 05/30/19 Polyethylene Glycol 3350 [Miralax] 17 gm PO DAILY PRN 06/01/19 ALPRAZolam [Xanax] 0.125 mg PO BID PRN PRN tab 06/03/19 Furosemide [Lasix] 40 mg PO BID@1000,1800 tab 06/03/19 Isosorbide Mononitrate [Isosorbide Mononitrate ER] 60 mg PO DAILY #0 tab 06/03/19 Melatonin 3 mg PO QHS tab 06/03/19 Metoprolol Tartrate [Lopressor (beta elena)] 75 mg PO BID #0 06/03/19 Paroxetine [Paxil] 10 mg PO DAILY tab 06/03/19 Psyllium [Metamucil] 1 packet PO DAILY PRN PRN packet 06/03/19
--- NOTE | 2019-06-03 12:14 | CASEMGMT ---
Patient was approved to go to TCU. VINICIO spoke with patient and let her know. Peyton from Palliative Care came to see patient and she signed Palliative Care papers. Peyton will schedule appt for Palliative to meet with patient and then call VINICIO. VINICIO called patient's daughter, Anaya who is her POA and let her know that patient was approved and will head over to TCU today. She thanked VINICIO for the phone call. [facility]. Patient also signed papers with Palliative Care. Arin BARR MSW
--- NOTE | 2019-06-03 12:34 | NURSING ---
Report called to TCU nurse
--- NOTE | 2019-06-03 12:47 | CASEMGMT ---
Peyton from Palliative Care scheduled an appt for patient on SundayJune 19 at 2p at patient's home. VINICIO wrote this on patient's d/c instructions, notified TCU SW, and will call patient's daughter to notify her of appt. Arin BARR MSW
--- NOTE | 2019-06-03 13:44 | PCM.DC.SUM ---
Discharge Date and Diagnosis Date of Admission: 05/30/19 Date of Discharge: 06/03/19 - Secondary Discharge Diagnosis Chronic Problems (Last Updated 05/30/19 @ 12:57 by MICHELLE He) Fecal impaction of colon (Chronic) Hypertension (Chronic) Coronary artery disease (Chronic) Hypokalemia (Chronic) Glaucoma (Chronic) Allergic rhinitis (Chronic) Dry eye (Chronic) Claustrophobia (Chronic) Anxiety (Chronic) CHF (congestive heart failure) (Chronic) Lower extremity edema (Chronic) Atherosclerotic heart disease of [place] coronary artery without angina pectoris (Chronic) History of non-ST elevation myocardial infarction (NSTEMI) (Chronic 04/2019) 05/2018, 03/2019, 04/2019 Essential (primary) hypertension (Chronic) Hyperlipemia (Chronic) 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 Her pulse ox dropped into the low 60s. Patient was postictal after that. Rapid response was called and then she was transferred to ER Patient had second seizure episode in ER 1. New onset of seizure episode with unresponsiveness, most likely from transient hypoxemia: Patient was also found transient hypoxia. Second episode of seizure witnessed by nurses in ER lasted for about [address] brain does not show acute intracranial process. Patient was found dehydrated and had IV fluid 150 mill per hour in ED and then 75 mill per hour ICU.On Keppra 500 mg every 12. IV Ativan as needed for seizure episode. SOC tele neurology consult reviewed. I agree with the plan of Keppra and Ativan as needed. EEG reported as no epileptiform discharges but mild to moderate generalized slowing of waves suggestive of encephalopathy. MRI reported chronic involutional changes with motion artifact but no acute intracranial abnormality. Palliative care meeting was done. Patient family is not decisive about hospice yet. Need more time. Changed her CODE STATUS to DNR CC with no intubation or BiPAP. This was discussed with patient's daughter, patient's son and son-in-law. Follow-up with outpatient neurology in 2 to 3 weeks. Patient is discharged on Keppra 500 mg twice daily. 2. Suspected aspiration pneumonia with associated hypoxia: Chest x-ray shows bilateral diffuse opacity, possible interstitial edema/bilateral atelectasis and effusion. Initially started on vancomycin and Zosyn but is changed to Unasyn to avoid risk of seizure with Zosyn. Urinary antigens and respiratory panel are negative. Currently n.p.o. pending speech therapist evaluation. Patient evaluated by speech therapist. Diet resumed as per speech therapist recommendation. Unasyn discontinued patient does not have fever or cough. Hanson catheter removed 3. chronic systolic and diastolic CHF, class IV-echocardiogram 04/29/2019 demonstrated EF 20%, stage I diastolic dysfunction, moderate mitral valve insufficiency, mild aortic valve insufficiency, pulmonary artery systolic pressure 36 mmHg. Currently patient looks dehydrated but later on can resume Lasix 40 mg twice daily, once euvolemic. Strict input and output. Daily weight. Light Jose wrap bandage bilateral lower extremities as patient probably has peripheral arterial disease. Patient is diuresed well. On baseline Lasix 40 mg twice daily. 4. 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 Renal ultrasound demonstrated bilateral renal cortical atrophy indicative of medical renal disease. BUN/creatinine 75/2.69. Kidney profile is better than previous hospital stay Serial creatinine shows improving kidney function but probably her baseline fluctuates between 2.25-2.7. 3. Mildly elevated troponin-suspect demand ischemia/seizure episode/CKD stage IV: Patient does not have chest pain. Troponin 0.012, 0.119. On telemetry: Few PVCs but hemodynamically stable 4. CAD with history of PCI-continue statin, isosorbide, metoprolol, Ranexa. Patient follows with Dr. Hernandez. Patient was deemed not a good candidate for cardiac cath/PCI because of history of severe anemia/GI bleed and also CKD stage IV 5. Hypertension-once patient is stable, resume isosorbide, metoprolol regimen. 6. Hyperlipidemia-continue statin. 7. Glaucoma-continue home ophthalmic regimen. 8. Rheumatoid arthritis/Sjogren's/peripheral neuropathy-no longer on regimen, stable. 9. Chronic macrocytic anemia-stable, trend CBC. 10. Elevated transaminases probably secondary to congestive liver disease from CHF. AST/ALT trending down.Right upper quadrant sonogram was done and reported 3 mm gallbladder polyp. Liver shows normal echogenicity no mass identified. CBD 3 mm. 11. Debility with recurrent falls and fracture of medial left inferior and superior pubic rami on 05/01/2019: Patient has gait instability. Continue PT/OT stable. 12. PAD with diminished peripheral pulses- MOOSE: Right side 1.19, left 0.9, DBI: Right 1.16, left 0.9. Right-sided suggestive of possible chronic arteriosclerosis/calcification. Vascular surgeon was consulted during last admission but had not seen the patient. Follow-up with Dr. Deleon as an outpatient Advanced directive/CODE STATUS: DNR CC. Palliative care meeting was done. Further meeting with palliative care was advised in SNF to discuss about inpatient hospice care to patient's son. Discharge medication reconciliation done. Discharge follow-up instructions completed. Discharge process discussed with the patient and all questions were answered to patient's satisfaction. Follow-up with neurology in 2 to 3 weeks Total time spent, exact 35 minutes on discharge meds reconciliation, examination, coordination of care with nurses and ancillary staff, review of imaging and blood test and discussion with the patient on follow-up instructions Subjective: Since patient is on baseline. Hemodynamically stable. No fever. Blood pressure is stable. No seizure episode while in ICU or on floor. On Keppra 500 mg IV twice daily. Objective: General: Alert, Oriented x3, Cooperative HEENT: Atraumatic, PERRLA, EOMI, Normocephalic Oral: - - Has dysphagia. Neck: Supple, No JVD, Negative Carotid Bruits Lungs: Clear to auscultation, No rhonchi, No wheeze, No rales, air entry diminished in bilateral lung bases. Cardiovascular: Regular rate, Regular Rhythm, Normal S1, Normal S2, No murmurs Abdomen: Bowel Sounds Present, Soft, Non Tender, Non-Distended. Hanson catheter removed Extremities: No edema, Capillary Refill Less than 3 Seconds Skin: No rashes, No breakdown. Some bruises on upper arm secondary to IV line Musculoskeletal: No Tenderness to Palpation of Joints or Extremities, Arthritic Changes, Muscle Wasting Neurological: Cranial nerves II-XII grossly intact, Deep Tendon Reflexes 2+/4 and Symmetrical, Neuro grossly intact Psych/Mental Status: Normal Affect, Appropriate - Physical Exam Vitals/I&O's: Vital Signs Temp Pulse Resp BP Pulse Ox 97.8 F 64 18 143/55 H 100 06/03/19 11:30 06/03/19 11:30 06/03/19 11:30 06/03/19 11:30 06/03/19 11:30 Oxygen Flow Rate (L/min) 2 Oxygen Delivery Method Room Air Weight: 104 lb 7.986 oz Body Mass Index (BMI) 18.6 Intake and Output for Last 24 Hours 06/01/19 06/02/19 06/03/19 23:59 23:59 23:59 Intake Total 1367 / 1479 1013.25 / 1013.25 575 / 575 Output Total 1125 / 1125 1750 / 1750 300 / 300 Balance 242 / 354 -736.75 / -736.75 275 / 275 Laboratory Results 06/03/19 04:50: Sodium 144, Potassium 4.4, Chloride 112 H, Carbon Dioxide 25.0, Anion Gap 7, BUN 56 H, Creatinine 2.19 H, Estim Creat Clear Calc 16.47, Est GFR (MDRD) Af Amer 28 L, Est GFR (MDRD) Non-Af 23 L, BUN/Creatinine Ratio 25.6 H, Glucose 107 H, Calcium 8.5, Total Bilirubin 0.70, AST 49 H, ALT 66 H, Alkaline Phosphatase 130 H, Total Protein 6.6, Albumin 2.2 L, Globulin 4.4 H, Albumin/Globulin Ratio 0.5 L Discharge Diet: - Discharge Activity: May Not Drive Home Medications: Medications to take at Discharge Multivit-Min/FA/Lycopen/Lutein [Centrum Silver Tablet] 1 tab PO DAILY 04/01/15 Cholecalciferol (Vitamin D3) [Vitamin D3] 5,000 unit PO DAILY 06/06/18 Vit C/E/Zn/Coppr/Lutein/Zeaxan [Preservision Areds 2 Softgel] 1 cap PO BID 06/06/18 atorvastatin 20 mg tablet 20 mg PO QHS 06/21/18 potassium chloride 10 mEq capsule,extended release 10 meq PO QHS cap 06/21/18 Brimonidine Tartrate/Timolol [Combigan Eye Drops] 1 drp EACH EYE BID 02/13/19 Latanoprost 1 drp EACH EYE QHS 02/13/19 Ranolazine [Ranexa] 1,000 mg PO BID 03/20/19 Acetaminophen [Tylenol] 1,000 mg PO Q8H PRN 04/28/19 Lifitegrast [Xiidra] 1 ea OP BID 04/29/19 fluticasone propionate 50 mcg/actuation nasal spray,suspension 1 spray INTRANASAL DAILY PRN PRN 05/23/19 Calcium Carb/Vitamin D [Caltrate-600 With Vit D Tab] 1 tab PO BIDCM 05/27/19 Nitroglycerin [Nitrostat] 0.4 mg SUBLINGUAL Q5M PRN 05/27/19 Furosemide [Lasix] 40 mg PO BID@1000,1800 05/30/19 Polyethylene Glycol 3350 [Miralax] 17 gm PO DAILY PRN 06/01/19 ALPRAZolam [Xanax] 0.125 mg PO BID PRN PRN tab 06/03/19 Isosorbide Mononitrate [Isosorbide Mononitrate ER] 60 mg PO DAILY #0 tab 06/03/19 Melatonin 3 mg PO QHS 06/03/19 Metoprolol Tartrate [Lopressor (beta elena)] 75 mg PO BID #0 06/03/19 Paroxetine [Paxil] 10 mg PO DAILY 06/03/19 Psyllium [Metamucil] 1 packet PO DAILY PRN PRN packet 06/03/19 Primary Care Physician: Demarco Lopez MD [Primary Care Provider] - Please follow up with your Primary Care Physician in: in 2 weeks Please Follow Up With: Demarco Lopez MD Please Follow Up With: Nahid Hernandez MD When: in 2 weeks Please Follow Up With: Zeferino Farrar MD When: in 2-3 weeks Please Follow Up With: Octaviano Macias DO When: Sunday Please Follow Up With: Ulices Fernández MD When: in 2-3 weeks Medical Necessity - Tobacco Use Smoking Status: Never smoker Tobacco Use: Non-smoker Meaningful Use Info Meaningful Use Diagnoses (Choose all that apply): None applicable Code Visit Inpatient E&M: 27271 Disch Hosp
== END 2019-06-03 12:55 | DRG 100 ==
LOC: ED 20:39 → ICU 05-31 07:25 → PCU 06-02 07:10 → ICU 06-02 09:17 → PCU 06-02 09:20
PROVIDERS: Internal Medicine Critical Care Medicine; Admitting Provider Family Medicine; Emergency Provider Emergency Medicine; PCP Family Medicine; Visit Provider Internal Medicine
DX: R56.9 Unspecified convulsions (principal); J69.0 Pneumonitis due to inhalation of food and vomit; N17.9 Acute kidney failure, unspecified; I13.0 Hypertensive heart and chronic kidney disease with heart failure and stage 1 through stage 4 chronic kidney disease, or unspecified chronic kidney disease; I50.42 Chronic combined systolic (congestive) and diastolic (congestive) heart failure; N18.4 Chronic kidney disease, stage 4 (severe); I24.8 Other forms of acute ischemic heart disease; R09.02 Hypoxemia; E86.0 Dehydration; I25.10 Atherosclerotic heart disease of native coronary artery without angina pectoris; R13.10 Dysphagia, unspecified; K76.1 Chronic passive congestion of liver; I34.0 Nonrheumatic mitral (valve) insufficiency; D50.9 Iron deficiency anemia, unspecified; M35.00 Sjogren syndrome, unspecified; E78.5 Hyperlipidemia, unspecified; I73.9 Peripheral vascular disease, unspecified; H40.9 Unspecified glaucoma; M06.9 Rheumatoid arthritis, unspecified; R29.6 Repeated falls; I25.2 Old myocardial infarction; Z79.82 Long term (current) use of aspirin; Z79.899 Other long term (current) drug therapy; Z95.5 Presence of coronary angioplasty implant and graft; Z96.643 Presence of artificial hip joint, bilateral
CPT/HCPCS: 36591; 51702; 70450; 70551; 71045; 80053; 81001; 83735; 83880; 84443; 84484; 85025; 85610; 85730; 87449; 87633; 92507; 92526; 92610; 93005; 94640; 95819; 97110; 97162; 97166; 97530; 99251; 99285; J7030; J7050; A4216; G0463; J0295; J2405

== ENCOUNTER 2019-06-03 13:00 | Inpatient (IN) | payer MEDICARE, SELFPAY ==
[2019-05-30 22:40] VITALS: BMI 18.6
[2019-06-03 13:24] VITALS: BP 130/54; PULSE 60; PULSE 61; RESP 16; TEMP 36.7; O2SAT 94; O2SAT 96; BMI 18.5
--- NOTE | 2019-06-03 15:59 | CASEMGMT ---
Social Work Reviewed and agreed with social work corporate legal intern documentation on this date. Twila Gutierres, SENIOR ATTORNEY LOSS PREVENTION SUPERVISOR
[2019-06-03] MEDS: Multivitamin (Healthy Eyes) Capsule 1 CAP PO (17:52)
[2019-06-03] MEDS: Calcium Carb/Vitamin D 1 TABLET Tablet PO (17:52)
[2019-06-03] MEDS: levETIRAcetam 500 MG Tablet PO (17:53)
[2019-06-03] MEDS: Furosemide 40 MG Tablet PO (17:53)
[2019-06-03 17:54] VITALS: BP 130/54; PULSE 60
[2019-06-03] MEDS: Metoprolol Tartrate 25 MG Tablet 75 MG PO (17:54)
[2019-06-03] MEDS: Ranolazine 500 MG Tablet 1000 MG PO (17:54)
[2019-06-03] MEDS: BRIMONIDINE 0.2% 5ML BOTTLE 1 DRP EACH EYE (18:02)
[2019-06-03] MEDS: Timolol 0.5% 5ML OPTH.BTL 1 DRP EACH EYE (18:05)
--- NOTE | 2019-06-03 19:19 | NURSING ---
SOAP SUDS ENEMA GIVEN PER ORDERS. NO RESULTS AT THIS TIME. REPORTED TO STEVE VIRK
[2019-06-03 20:01] VITALS: PULSE 57; O2SAT 94
--- NOTE | 2019-06-03 21:28 | HP.PCM_ITS ---
Problem List (1) Seizure disorder Status: Acute (2) Acute on chronic systolic and diastolic heart failure, NYHA class 1 Status: Chronic (3) Debility Status: Acute (4) Encephalopathy Status: Acute (5) Acute on chronic kidney failure Status: Chronic Qualifiers: (6) Dysphagia Status: Acute (7) Fecal impaction of colon Status: Chronic (8) Hypertension Status: Chronic (9) Coronary artery disease Status: Chronic Qualifiers: (10) Hypokalemia Status: Chronic (11) Glaucoma Status: Chronic (12) Allergic rhinitis Status: Chronic (13) Dry eye Status: Chronic (14) Anxiety Status: Chronic (15) Aspiration pneumonia Status: Acute Qualifiers: (16) Hyperlipemia Status: Chronic Qualifiers: (17) Iron deficiency anemia Status: Chronic Qualifiers: History of Present Illness Date of Admission: 06/03/19 Chief Complaint: Here for rehabilitation, strengthening, prior to disposition determination. The patient is a 78 year old Female with below past medical history with followin05/30/2019 TCU resident transferred to [facility] Emergency Department after Rapid Response Team for seizure. 05/31/2019 Admit to Hospital. 05/31/2019 MRI brain showed involutional changes of brain. 05/31/2019 EEG negative for seizure activity, showed mild to moderate diffuse encephalopathy. Seizures x 2 after choking hypoxia, unresponsive. Seizure thought secondary to transient hypoxia. Keppra, Ativan added to control seizures. Consider Hospice care, Family not ready at this time. Aspiration pneumonia treated with Vancomycin, Zosyn, then Unasy, then antibiotics stopped. Lasix 40MG twice daily for chronic systolic diastolic heart failure. Elevated troponin secondary to demand ischemia. 06/03/2019 Admit to TCU with debility, here for rehabilitation, strengthening, prior to disposition determination. Past Medical History Past Medical History (Chronic Problems): Chronic Problems (Last Updated 05/30/19 @ 12:57 by MICHELLE He) Acute on chronic kidney failure (Chronic) Fecal impaction of colon (Chronic) Hypertension (Chronic) Coronary artery disease (Chronic) Hypokalemia (Chronic) Glaucoma (Chronic) Allergic rhinitis (Chronic) Dry eye (Chronic) Claustrophobia (Chronic) Anxiety (Chronic) Acute on chronic systolic and diastolic heart failure, NYHA class 1 (Chronic) CHF (congestive heart failure) (Chronic) Lower extremity edema (Chronic) Atherosclerotic heart disease of [place] coronary artery without angina pectoris (Chronic) History of non-ST elevation myocardial infarction (NSTEMI) (Chronic 04/2019) 05/2018, 03/2019, 04/2019 Essential (primary) hypertension (Chronic) Hyperlipemia (Chronic) 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) Iron deficiency anemia (Chronic) Recurrent falls (Chronic) Medical History: Medical History (Last Updated 05/30/19 @ 12:57 by MICHELLE He) Lower extremity edema (Chronic) R60.0 Atherosclerotic heart disease of [place] coronary artery without angina pectoris (Chronic) I25.10 History of non-ST elevation myocardial infarction (NSTEMI) (Chronic) Onset Date: 04/2019 I25.2 05/2018, 03/2019, 04/2019 Acute on chronic systolic (congestive) heart failure (Acute) I50.23 Essential (primary) hypertension (Chronic) I10 Hyperlipemia (Chronic) E78.5 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) I45.2 Iron deficiency anemia (Chronic) D50.9 Recurrent falls (Chronic) R29.6 Anemia D64.9 Chronic kidney disease, stage 3 (moderate) N18.3 Chronic renal insufficiency N18.9 Closed fracture of left inferior pubic ramus S32.592A History of Sjogren's disease Z87.39 Rheumatoid arthritis M06.9 ARF (acute renal failure) (Resolved) GI bleed K92.2 Pleural effusion, left J90 Syncope and collapse R55 Chronic diastolic (congestive) heart failure (Ruled-out) I50.32 Diastolic dysfunction (Inactive) I51.9 Left ventricular hypertrophy (Inactive) I51.7 Allergies adalimumab [From Humira] Allergy (Verified 05/30/19 21:46) Rash ciprofloxacin HCl [From Cipro] Allergy (Verified 05/30/19 21:46) Unknown doxazosin Allergy (Verified 05/30/19 21:46) Other hydroxyzine [From Vistaril] Allergy (Verified 05/30/19 21:46) Other latex Allergy (Verified 05/30/19 21:46) Rash levofloxacin [From Levaquin] Allergy (Verified 05/30/19 21:46) Unknown lisinopril Allergy (Verified 05/30/19 21:46) Other COUGH Methotrexate Analogues Allergy (Verified 05/30/19 21:46) Hives naproxen Allergy (Verified 05/30/19 21:46) Unknown potassium clavulanate [From Augmentin] Allergy (Verified 05/30/19 21:46) Unknown Sulfa (Sulfonamide Antibiotics) Allergy (Verified 05/30/19 21:46) Unknown amlodipine Adverse Reaction (Severe, Verified 05/30/19 21:46) edema haloperidol lactate [From Haldol] Adverse Reaction (Unknown, Verified 05/30/19 21:46) agitation amoxicillin trihydrate [From Augmentin] Adverse Reaction (Verified 05/30/19 21:46) Upset Stomach hydromorphone HCl [From Dilaudid] Adverse Reaction (Verified 05/30/19 21:46) Other HALLUCINATIONS hydroxychloroquine sulfate [From Plaquenil] Adverse Reaction (Verified 05/30/19 21:46) Other VISION ISSUES Home Medications: Ambulatory Orders Medication Instructions Recorded Multivit-Min/FA/Lycopen/Lutein 1 tab PO DAILY 04/01/15 [Centrum Silver Tablet] Cholecalciferol (Vitamin D3) 5,000 unit PO DAILY 06/06/18 [Vitamin D3] Vit C/E/Zn/Coppr/Lutein/Zeaxan 1 cap PO BID 06/06/18 [Preservision Areds 2 Softgel] atorvastatin 20 mg tablet 20 mg PO QHS 06/21/18 potassium chloride 10 mEq 10 meq PO QHS cap 06/21/18 capsule,extended release Brimonidine Tartrate/Timolol 1 drp EACH EYE BID 02/13/19 [Combigan Eye Drops] Latanoprost 1 drp EACH EYE QHS 02/13/19 Ranolazine [Ranexa] 1,000 mg PO BID 03/20/19 Acetaminophen [Tylenol] 1,000 mg PO Q8H PRN 04/28/19 Lifitegrast [Xiidra] 1 ea OP BID 04/29/19 fluticasone propionate 50 1 spray INTRANASAL DAILY PRN PRN 05/23/19 mcg/actuation nasal spray,suspension Calcium Carb/Vitamin D 1 tab PO BIDCM 05/27/19 [Caltrate-600 With Vit D Tab] Nitroglycerin [Nitrostat] 0.4 mg SUBLINGUAL Q5M PRN 05/27/19 Furosemide [Lasix] 40 mg PO BID@1000,1800 05/30/19 Polyethylene Glycol 3350 [Miralax] 17 gm PO DAILY PRN 06/01/19 ALPRAZolam [Xanax] 0.125 mg PO BID PRN PRN tab 06/03/19 Isosorbide Mononitrate [Isosorbide 60 mg PO DAILY #0 tab 06/03/19 Mononitrate ER] Levetiracetam [Keppra] 500 mg PO BID #60 tab 06/03/19 Melatonin 3 mg PO QHS 06/03/19 Metoprolol Tartrate [Lopressor 75 mg PO BID #0 06/03/19 (beta brandyn)] Paroxetine [Paxil] 10 mg PO DAILY 06/03/19 Psyllium [Metamucil] 1 packet PO DAILY PRN PRN packet 06/03/19 levETIRAcetam tablet [Keppra 500 mg PO BID 06/03/19 tablet] Surgical History: Surgical History (Last Reviewed 05/23/19 @ 11:50 by Liudmila Byrd) History of coronary artery stent placement (Resolved) Onset Date: 05/21/09 Z95.5 PCI-NIGHAT-RCA w/ 2.5 x 28 mm Promus Stent x 2, NIGHAT-Ramus w/ 2.25 x 20 Taxus Stent 05/21/2009 History of carpal tunnel release Z98.890 History of left heart catheterization Onset Date: 06/07/18 Z98.890 History of left hip replacement Z96.642 History of right hip hemiarthroplasty Z96.641 Surgical History: angioplasty, total hip arthroplasty - Bilateral, - - Carpal tunnel surgery. 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 Smoking Status: Never smoker Tobacco Use: Non-smoker Alcohol: None Drugs: None - *Family History Paternal Family History: Family History (Last Reviewed 05/23/19 @ 11:50 by Liudmila Byrd) Father No problems noted. History Items: Heart Disease Maternal Family History: Family History (Last Reviewed 05/23/19 @ 11:50 by Liudmila Byrd) Father No problems noted. History Items: Cancer - Mother with history of breast cancer. Review of Systems Constitutional: Reports: Anorexia. Denies: Chills, Fever, Weight Change HEENT: Denies: Head Aches, Sinus Congestion, Sinus Drainage Cardiovascular: Denies: Chest Pain, Palpitations Respiratory: Denies: Cough, Shortness of breath at rest, Sputum production Gastrointestinal: Denies: Abdominal Pain, Nausea, Vomiting Genitourinary: Denies: Dysuria Musculoskeletal: Denies: Joint Pain, Joint Tenderness Skin: Denies: Rash, Wounds Neurological: Denies: Numbness, Tingling, Focal weakness Psychiatric: Denies: Anxiety, Depression, Homicidal Ideations, Suicidal Ideations Hematologic/ Lymphatic: Denies: Easy Bruising, Easy Bleeding VTE Information - Inpt Only VTE Present on Admission: No VTE Mechan Device Prophylaxis: Knee High ELLIS Hose VTE Pharm Prophylaxis ordered?: No Reason prophylaxis not ordered:: Medical Contraindication Patient Problems: Active and Suspected Problems (Last Updated 05/30/19 @ 12:57 by MICHELLE He) Seizure disorder (Acute) - Physical Exam Vitals/I&O's: Vital Signs Temp Pulse Resp BP Pulse Ox 98.1 F 57 L 16 130/54 H 94 06/03/19 13:24 06/03/19 20:01 06/03/19 13:24 06/03/19 17:54 06/03/19 20:01 Oxygen Delivery Method Room Air Weight: 47.4 kg Body Mass Index (BMI) 18.5 General: Alert, Oriented x3, Cooperative HEENT: Atraumatic, PERRLA, EOMI, Normocephalic Neck: Supple, No JVD, Negative Carotid Bruits Lungs: Clear to auscultation, Normal air movement Cardiovascular: Regular rate, No murmurs, - - Port left upper chest. Abdomen: Bowel Sounds Present, Soft, Non Tender Extremities: No edema, Capillary Refill Less than 3 Seconds Skin: No rashes, No breakdown Musculoskeletal: No Tenderness to Palpation of Joints or Extremities Neurological: Cranial nerves II-XII grossly intact Psych/Mental Status: Normal Affect, Appropriate Current Medications Acetaminophen (Tylenol) 1,000 mg PO Q8H PRN PRN Reason: Pain Score 1-10/10 Alprazolam (Xanax) 0.125 mg PO BID PRN PRN PRN Reason: ANXIETY Atorvastatin Calcium (Lipitor) 20 mg PO QHS JOSLYN Bisacodyl (Dulcolax) 10 mg RECTAL DAILY PRN PRN Reason: Constipation Brimonidine Tartrate (Brimonidine 0.2% 5ml Bottle) 1 drop EACH EYE BID [facility] Last Admin: 06/03/19 18:02 Dose: 1 drop Documented by: Calcium/Vitamin D (Os-Osmany 500mg + D) [facility] Last Admin: 06/03/19 17:52 Dose: 1 tablet Documented by: Cholecalciferol (Vitamin D) 5,000 unit PO DAILY [facility] Fluticasone Propionate (Flonase Nasal [place]) 1 spray NASAL DAILY PRN PRN PRN Reason: ALLERGIES Furosemide (Lasix) 40 mg PO BID@1000,1800 [facility] Last Admin: 06/03/19 17:53 Dose: 40 mg Documented by: Heparin Sodium (Beef Lung) () 50 units IV UD PRN PRN Reason: Port-a-Cath (VAD)Heparin Flush Isosorbide Mononitrate (Imdur) 60 mg PO DAILY [facility] Latanoprost (Xalatan Opthalmic) 1 drop EACH EYE QHS [facility] Levetiracetam (Keppra Tablet) 500 mg PO BID [facility] Last Admin: 06/03/19 17:53 Dose: 500 mg Documented by: Melatonin (Melatonin) 3 mg PO QHS [facility] Metoprolol Tartrate (Lopressor (Beta Brandyn)) 75 mg PO BID [facility] Last Admin: 06/03/19 17:54 Dose: 75 mg Documented by: Multivitamins/Minerals (Multivitamin With Minerals (Bkc)) 1 tablet PO DAILY@0800 [facility] Multivitamins/Minerals (Healthy Eyes (Bkc)) 1 capsule PO BID [facility] Last Admin: 06/03/19 17:52 Dose: 1 capsule Documented by: Nitroglycerin (Nitrostat) 0.4 mg SUBLINGUAL Q5M PRN PRN Reason: ANGINA/CHEST PAIN Paroxetine HCl (Paxil) 10 mg PO DAILY [facility] Polyethylene Glycol (Miralax) 17 gm PO DAILY PRN PRN Reason: Constipation Potassium Chloride (K-Dur) 10 meq PO QHS [facility] Psyllium Hydrophilic Mucilloid (Metamucil) 1 packet PO DAILY PRN PRN PRN Reason: Constipation Ranolazine (Ranexa) 1,000 mg PO BID [facility] Last Admin: 06/03/19 17:54 Dose: 1,000 mg Documented by: Sodium Chloride () 10 - 40 ml IV UD PRN PRN Reason: Port-a-Cath (VAD) Flush Sodium Chloride (0.9% Nacl (Sterile) Posiflush) 10 - 40 ml IV UD PRN PRN Reason: Port access or dressing change Timolol Maleate (Timoptic) 1 drop EACH EYE BID JOSLYN Last Admin: 06/03/19 18:05 Dose: 1 drop Documented by: Tuberculin PPD (Tubersol, Aplisol, Ppd) 5 tu ID [id number] ONE Stop: 06/04/19 10:01 Tuberculin PPD (Tubersol, Aplisol, Ppd) 5 tu ID [id number] ONE Stop: 06/11/19 10:01 Assessment/Plan All Active Problems (Last Updated 05/30/19 @ 12:57 by Carol Perry NP-C) Debility (Acute) Fall (Acute) Encephalopathy (Acute) Acute on chronic systolic and diastolic heart failure, NYHA class 4 (Acute) Dysphagia (Acute) Seizure (Acute) Hypoxia (Acute) Aspiration pneumonia (Acute) Seizure disorder (Acute) Dyspnea (Acute) History of coronary artery stent placement (Resolved 05/21/09) Acute on chronic systolic (congestive) heart failure (Acute) ARF (acute renal failure) (Resolved) Fracture of femoral neck, left (Resolved) Hypertensive emergency (Resolved) Injury of left shoulder and upper arm (Resolved) Pyelonephritis, acute (Resolved) Scalp laceration (Resolved) Chronic diastolic (congestive) heart failure (Ruled-out) 78 year old female with below past medical history hospitalized for seizure disorder secondary to transient hypoxia, complicated by encephalopathy, aspiration pneumonia, admitted to TCU with debility, here for rehabilitation, strengthening, prior to disposition determination. * Debility - PT/OT. * Dysphagia - ST. * Pain - Tylenol 1000MG Q8H PRN pain (1-10). * Bowel - Miralax 17GM daily PRN. Metamucil 1 packet daily PRN, Dulcolax 10MG [place] daily PRN. * Adult immunization - Administer Prevnar 13, Pneumovax 23, Fluzone as appropriate. * DVT prophylaxis - Hold, risk of bleeding high. * Anxiety - Xanax 0.125MG BID PRN. * Hyperlipidemia - Atorvastatin 20MG QHS. * Glaucoma - Brimonidine 0.2% 1GTT OU BID. Xalatan 0.05% 1GTT OU QHS, Timolol 0.5% 1GTT OU BID. * Chronic systolic diastolic congestive heart failure - Metoprolol 75MG BID, Imdur 60MG daily, Lasix 40MG BID, start Entresto 24/26MG, titrate up to 97/103MG BID. * Seizure disorder - Keppra 500MG BID. * Dry Eye - Xiidra 1GTT each BID. * Depression/insomnia/appetite loss - Mirtazapine 7.5MG QHS. * Coronary Artery Disease - Metoprolol 75MG BID, Imdur 60MG daily, Ranexa 1000MG BID, NTG 0.4MG Q5M PRN. * Hypokalemia - K-Dur 10MEQ QHS.
[2019-06-03] MEDS: Latanoprost 0.005% 1 Bottle 1 DRP EACH EYE (22:02)
[2019-06-03] MEDS: Atorvastatin Calcium 20 MG Tablet PO (22:03)
[2019-06-03] MEDS: Mirtazapine 15 MG Tablet 7.5 MG PO (22:08)
[2019-06-04 05:58] LABS: Absolute Lymphocyte Count 1.51 X10^3/uL (0.83-4.51); Absolute Neutrophil Count 7.9 X10^3/uL (2.0-7.7); Basophil# 0.04 X10^3/uL; Basophil% 0.4 % (0-1); Eosinophil# 0.19 X10^3/uL; Eosinophils% 1.8 % (0-5); Hematocrit 38.3 % (37-47); Hemoglobin 11.3 g/dL (12.0-15.0); Lymphocyte # 1.51 X10^3/ul (4.0); Lymphocyte % 14.1 % (19-41); Mean Corp Hgb Conc 29.5 g/dL (32-36); Mean Corpuscular Hgb 33.8 pg (27.0-32.0); Mean Corpuscular Volume 114.7 fL (81-99); Mean Platelet Vol. 12.7 fl (6.2-12.0); Monocyte# 1.06 X10^3/uL; Monocyte% 9.9 % (0-10); NRBC Flagged by Analyzer 0.5 % (0-5); Neutrophil # 7.85 X10^3/uL (2.7-7.7); Neutrophil % 73.1 % (47-70); POSITIVE MORPHOLOGY YES; Platelet Count 224 K/mm3 (150-450); RBC Distribution Width CV 20.1 % (11.6-14.6); RBC Distribution Width SD 85.5 fl (35.1-43.9); Red Blood Count 3.34 M/mm3 (4.2-5.4); White Blood Count 10.7 K/mm3 (4.4-11.0)
[2019-06-04 06:29] LABS: Anion Gap 7 (5-15); BUN 52 mg/dL (7-18); BUN/Creat Ratio 23.7 RATIO (10-20); Calcium,Total 8.9 mg/dL (8.5-10.1); Chloride 110 mmol/L (98-107); Creatinine, Serum 2.19 mg/dL (0.55-1.02); EST Glomerular Filtration Rate 23 mL/min (>60); Est Glom Filt Rate - Afr Amer 28 mL/min (>60); Estimated Creatinine Clearance 15.59 ml/min; Glucose 110 mg/dL (74-106); Potassium 4.8 mmol/L (3.5-5.1); Sodium Level 142 mmol/L (136-145)
[2019-06-04] MEDS: SACUBITRIL/VALSARTAN 24/26 MG TABLET 1 EACH PO ×2 (07:02→17:44)
[2019-06-04 07:03] VITALS: PULSE 64
[2019-06-04] MEDS: Ranolazine 500 MG Tablet 1000 MG PO ×2 (07:03→17:47)
[2019-06-04] MEDS: Metoprolol Tartrate 25 MG Tablet 75 MG PO ×2 (07:03→17:45)
[2019-06-04] MEDS: levETIRAcetam 500 MG Tablet PO ×2 (07:03→17:42)
[2019-06-04 07:04] LABS: Differential Indicated SCAN CRITERIA MET
[2019-06-04] MEDS: Isosorbide Mononitrate 60 MG Tablet PO (07:04)
[2019-06-04] MEDS: BRIMONIDINE 0.2% 5ML BOTTLE 1 DRP EACH EYE ×2 (07:10→17:39)
[2019-06-04] MEDS: Timolol 0.5% 5ML OPTH.BTL 1 DRP EACH EYE ×2 (07:11→17:49)
[2019-06-04] MEDS: Menthol/Lanolin/Calamine/Znox 113 GM Tube 1 APPLIC TOPICAL ×2 (07:12→17:39)
[2019-06-04] MEDS: LIFITEGRAST 1 EACH DROPERETTE OP ×2 (07:12→17:50)
[2019-06-04 07:22] LABS: Anisocytosis 3+; Differential Comment SCANNED
[2019-06-04 11:13] VITALS: BP 145/62; PULSE 62
[2019-06-04] MEDS: Furosemide 40 MG Tablet PO ×2 (11:18→17:42)
[2019-06-04] MEDS: Tuberculin,Purif.prot.deriv. 50 TU/ML Vial 5 ML ID (11:18)
[2019-06-04] MEDS: Bisacodyl 10 MG Suppository RECTAL (11:19)
--- NOTE | 2019-06-04 13:08 | SP.MBSS_ITS ---
PRIMARY / SECONDARY DIAGNOSIS: oropharyngeal dysphagia (R13.12) REFERRING PHYSICIAN: Dr. Georges CURRENT DIET: Strayhorn Thick Liquids/Mechanical Soft Textures DENTITION: Upper and Lower dentures MENTAL STATUS: WFL for assessment RESPIRATORY STATUS: O2 via room airt PREVIOUS MODIFIED BARIUM SWALLOW STUDY: N/A REASON FOR REFERRAL: concerns for aspiration MEDICAL HISTORY: Pt is a 78/F with PMH including chronic anemia, CHF, HTN, HLD, hx NSTEMI, CAD, CKD stage III, rheumatoid arthritis and Sjogren's disease. STUDY FINDINGS: Patient participated in a Modified Barium Swallow (MBS) study on 06/04/2019. Physician Anesthesiologist present for this evaluation. This study was recorded in the lateral view and images were sent to PACs for storage. The following consistencies were presented to this patient for analysis of oropharyngeal swallow function: thin liquid, nectar thick liquid, honey thick liquid, pudding, and a regular textured, Lisa Doone cookie. Results of the MBS are as follows: PENETRATION / ASPIRATION SCALE (BHANDARI): 1 = does not enter airway 2 = enters airway/above vocal folds/ejected 3 = enters airway/above vocal folds/not ejected 4 = enters airway/contacts vocal folds/ejected 5 = enters airway/contacts vocal folds/not ejected 6 = enters airway/below vocal folds/ejected 7 = enters airway/below vocal folds/not ejected despite effort 8 = enters airway/below vocal folds/no effort PENETRATION / ASPIRATION SCALE (SCORE): 1) thin liquid via teaspoon =1 2) thin liquid via teaspoon= 1 3) thin liquid via small single suip from cup = 1 4) thin liquid via small single sip from cup =1 5) thin liquid via sequential sips from cup = 2 6) thin liquid via single sip from cup with chin tuck = 1 7) nectar thick liquid via single sip from cup = 2 transient 8) honey thick liquid via single sip from cup 5 *from residue in valleculae from previous trials 9) pudding= 5 *from residue in valleculae from previous trials 10) cookie = 5 *from residue in valleculae from previous trials 11) thin liquid via sip from straw = 8 12) thin liquid via cup with chin tuck = 8 13) thin liquid via cup with attempt at supraglottic swallow = 7 14) Strayhorn thick liquid via single sip from cup = 1 15) Strayhorn thick liquid via sip from straw = 1 IMPRESSION: moderate oropharyngeal dysphagia (R13.12) ORAL PHASE CHARACTERIZED BY: LABIAL SEAL:interlabial escape, no progression to anterior lip TONGUE CONTROL DURING BOLUS MANIPULATION: escape to lateral buccal cavity/floor of mouth BOLUS PREPARATION / MASTICATION: disorganized chewing/mashing with solid pieces of bolus unchewed BOLUS TRANSPORT / LINGUAL MOTION: delayed initiation of tongue motion ORAL RESIDUE: residue collection on oral structures PHARYNGEAL PHASE CHARACTERIZED BY: INITIATION OF PHARYNGEAL SWALLOW: bolus head in valleculae at first hyoid excursion SOFT PALATE ELEVATION: no bolus between soft palate and pharyngeal wall LARYNGEAL ELEVATION: partial superior movement of thyroid cartilage/partial approximation of arytenoids cartilage to epiglottic petiole ANTERIOR HYOID EXCURSION: partial anterior movement EPIGLOTTIC MOVEMENT: partial epiglottic inversion LARYNGEAL VESTIBULE CLOSURE AT HEIGHT OF SWALLOW: incomplete laryngeal vestibule closure with narrow column of air/contrast in laryngeal vestibule PHARYNGEAL STRIPPING WAVE: pharyngeal stripping wave present / diminished PHARYNGOESOPHAGEAL SEGMENT OPENING: partial distension and partial duration; partial obstruction of flow TONGUE BASE RETRACTION:wide column of contrast between tongue base and posterior pharyngeal wall PHARYNGEAL RESIDUE: collection of residue within or on pharyngeal structures ESOPHAGEAL PHASE CHARACTERIZED BY: ESOPHAGEAL BOLUS CLEARANCE IN THE UPRIGHT POSITION: could not view DIET TEXTURE RECOMMENDATIONS: Will recommend a mechanical soft textured, nectar thick liquid diet. COMPENSATORY STRATEGIES RECOMMENDED: Will recommed directly supervised meals, reduced bolus volume, alternating of bites/sips, avoid straws, seated upright at 90 degrees during PO intake, and remain upright for 30-60 minutes post meal (GERD precaution). INTERPRETATION OF RESULTS: Patient presents with moderate oropharyngeal dysphagia (R13.12). Oral phase primarily marked by mastication inefficiency with solid textures including residue underneath ill fitting dentures. Solid piece of cookie left unchewed requiring liquid chaser to clear. Swallow onset delay (2-3 seconds in length) resulted in premature bolus loss. Oral cavity very dry (Sjogren's syndrom) making bolus manipulation and lingual movement difficult. Pharyngeal phase primarily marked by reduced closure of the airway during deglutition attributed to reduced laryngeal elevation and hyoid excursion. Inconsistent complete eppiglottic inversion contributed to copiious amounts of residue within valleculae. Patient continued to fatigue with trials presented to her initially tolerating small sips of thin liquids and later having both overt and silent aspiration with thin liquids with both chin tuck attempts and without. At times, patient found to have penetration on liquids from residue remaining in valleculae rather than trialed liquid. Small diverticulum like pouch found above PES which emptied and refluxed during trials of liquids. Would consider further evaluation from ENT to assess pouch like structure. Patient generally tolerated small single sips from cup better than when taking large, sequential sips or sips from a straw. Because of the silent aspiration that was found with thin liquids, clinical assessment at bedside relying on identification of classic overt signs and symptoms of aspiration unreliable. RECOMMENDATIONS: Patient requires intensive skilled speech-language intervention targeting continued diet texture management, training and implementation of recommended compensatory strategies, training and implementation of recommended oropharyngeal strengthening exercises to facilitate improved swallow function, training, implementation, and patient education regarding implementation of the FFWP, patient and caregiver training targeting meal preparation / thickened liquid preparation if unable to advance to baseline diet textures prior to discharge. Would strongly discourage advancement past nectar thickened liquids without completion of a repeat modified barium swallow study due to the extent of aspirate identified that was silent in nature. Will recommend continued implementation of the [place] Free Water Protocol (FFWP), as continued manipulation of thin liquids with above recommended aspiration precautions may promote improved hydration and improved intraoral bolus control during initiation and execution of the swallow to facilitate improved airway protection and upgrade to least restrictive means of PO intake (thin liquids). ADDITIONAL COMMENTS/RECOMMENDATIONS: Results and recommendations were discussed with the patient immediately following MBS completion, with the patient verbalizing understanding and agreement with all recommendations and education provided. Marie Acosta M.A., [facility]-VERIFYING MACHINE OPERATOR Speech Language Pathologist [facility] [address] [place] [address] [email or web address] [phone]
[2019-06-04 14:20] VITALS: BP 130/46; PULSE 58; RESP 16; TEMP 36.6; O2SAT 94
--- NOTE | 2019-06-04 14:47 | PHA.CONS_ITS ---
<Martha Hart - Last Filed: 06/04/19 14:47> Progress Note - Pharmacy Subjective: TCU Admission Objective: Allergies adalimumab [From Humira] Allergy (Verified 05/30/19 21:46) Rash ciprofloxacin HCl [From Cipro] Allergy (Verified 05/30/19 21:46) Unknown doxazosin Allergy (Verified 05/30/19 21:46) Other hydroxyzine [From Vistaril] Allergy (Verified 05/30/19 21:46) Other latex Allergy (Verified 05/30/19 21:46) Rash levofloxacin [From Levaquin] Allergy (Verified 05/30/19 21:46) Unknown lisinopril Allergy (Verified 05/30/19 21:46) Other COUGH Methotrexate Analogues Allergy (Verified 05/30/19 21:46) Hives naproxen Allergy (Verified 02 21:46) Unknown potassium clavulanate [From Augmentin] Allergy (Verified 05/30/19 21:46) Unknown Sulfa (Sulfonamide Antibiotics) Allergy (Verified 05/30/19 21:46) Unknown amlodipine Adverse Reaction (Severe, Verified 05/30/19 21:46) edema haloperidol lactate [From Haldol] Adverse Reaction (Unknown, Verified 05/30/19 21:46) agitation amoxicillin trihydrate [From Augmentin] Adverse Reaction (Verified 05/30/19 21:46) Upset Stomach hydromorphone HCl [From Dilaudid] Adverse Reaction (Verified 05/30/19 21:46) Other HALLUCINATIONS hydroxychloroquine sulfate [From Plaquenil] Adverse Reaction (Verified 05/30/19 21:46) Other VISION ISSUES Current Medications Generic Name Dose Route Start Last Admin Trade Name Freq PRN Reason Stop Dose Admin Acetaminophen 1,000 mg 06/03/19 13:35 Tylenol PO Q8H PRN Pain Score 1-10/10 Alprazolam 0.125 mg 06/03/19 14:03 Xanax PO BID PRN PRN ANXIETY Atorvastatin Calcium 20 mg 06/03/19 22:00 06/03/19 22:03 Lipitor PO 20 mg QHS JOSLYN Administration Bisacodyl 10 mg 06/03/19 13:41 06/04/19 11:19 Dulcolax RECTAL 10 mg DAILY PRN Administration Constipation Brimonidine Tartrate 1 drop 06/03/19 18:00 06/04/19 07:10 Brimonidine 0.2% 5ml Bottle EACH EYE 1 drop BID JOSLYN Administration Calamine/Phenol 1 applic 06/04/19 06:00 06/04/19 07:12 Calmoseptine Ointment TOPICAL 1 applicatio BID JOSLYN Administration Protocol Emollient Ointment 1 applic 06/04/19 06:00 06/04/19 07:12 Eucerin Intensive Repair TOPICAL 1 applicatio BID JOSLYN Administration Protocol Furosemide 40 mg 06/03/19 18:00 06/04/19 11:18 Lasix PO 40 mg BID@1000,1800 JOSLYN Administration Heparin Sodium (Beef Lung) 50 units 06/03/19 16:19 IV UD PRN Port-a-Cath (VAD)Heparin Flush Isosorbide Mononitrate 60 mg 06/04/19 06:00 06/04/19 07:04 Imdur PO 60 mg DAILY JOSLYN Administration Latanoprost 1 drop 06/03/19 22:00 06/03/19 22:02 Xalatan Opthalmic EACH EYE 1 drop QHS [facility] Administration Levetiracetam 500 mg 06/03/19 18:00 06/04/19 07:03 Keppra Tablet PO 500 mg BID JOSLYN Administration Metoprolol Tartrate 75 mg 06/03/19 18:00 06/04/19 07:03 Lopressor (Beta Brandyn) PO 75 mg BID JOSLYN Administration Mirtazapine 7.5 mg 06/03/19 22:00 06/03/19 22:08 Remeron PO 7.5 mg QHS [facility] Administration Nitroglycerin 0.4 mg 06/03/19 14:20 Nitrostat SUBLINGUAL Q5M PRN ANGINA/CHEST PAIN Polyethylene Glycol 17 gm 06/03/19 13:35 Miralax PO DAILY PRN Constipation Potassium Chloride 10 meq 06/03/19 22:00 06/03/19 22:03 K-Dur PO 10 meq QHS [facility] Administration Psyllium Hydrophilic Mucilloid 1 packet 06/03/19 13:35 Metamucil PO DAILY PRN PRN Constipation Ranolazine 1,000 mg 06/03/19 18:00 06/04/19 07:03 Ranexa PO 1,000 mg BID [facility] Administration Sacubitril/Valsartan 1 each 06/04/19 06:00 02/19/20 07:02 Entresto 24 Mg-26 Mg Tablet PO 06/18/19 06:01 1 each BID JOSLYN Administration Sacubitril/Valsartan 1 each 06/19/19 06:00 Entresto 49 Mg-51 Mg Tablet PO 07/03/19 06:01 BID JOSLYN Sacubitril/Valsartan 1 each 07/04/19 06:00 Entresto 97 Mg-103 Mg Tablet PO BID JOSLYN Sodium Chloride 10 - 40 ml 06/03/19 16:19 IV UD PRN Port-a-Cath (VAD) Flush Sodium Chloride 10 - 40 ml 06/03/19 16:19 0.9% Nacl (Sterile) Posiflush IV UD PRN Port access or dressing change Timolol Maleate 1 drop 06/03/19 18:00 06/04/19 07:11 Timoptic EACH EYE 1 drop BID JOSLYN Administration Tuberculin PPD 5 tu 06/11/19 10:00 Tubersol, Aplisol, Ppd ID 06/11/19 10:01 X1 ONE Problem List (Last Updated 05/30/19 @ 12:57 by Carol Perry NP-C) Seizure disorder (Acute) Acute on chronic systolic and diastolic heart failure, NYHA class 1 (Chronic) Vital Signs Temp Pulse Resp BP Pulse Ox 97.8 F 58 L 16 130/46 H 94 06/04/19 14:20 06/04/19 14:20 06/04/19 14:20 06/04/19 14:20 06/04/19 14:20 Oxygen Delivery Method Room Air Weight: 47.4 kg Body Mass Index (BMI) 18.5 Sodium 142 mmol/L (136-145) 06/04/19 05:10 Potassium 4.8 mmol/L (3.5-5.1) 06/04/19 05:10 Chloride 110 mmol/L (98-107) H 06/04/19 05:10 Carbon Dioxide 25.0 mmol/L (21.0-32.0) 06/04/19 05:10 Anion Gap 7 (5-15) 06/04/19 05:10 BUN 52 mg/dL (7-18) H 06/04/19 05:10 Creatinine 2.19 mg/dL (0.55-1.02) H 06/04/19 05:10 Est GFR (MDRD) Af Amer 28 mL/min (>60) L 06/04/19 05:10 Est GFR (MDRD) Non-Af 23 mL/min (>60) L 06/04/19 05:10 BUN/Creatinine Ratio 23.7 RATIO (10-20) H 06/04/19 05:10 Glucose 110 mg/dL (74-106) H 06/04/19 05:10 Assessment/Plan: 1. Pain: acetaminophen 1000mg PO Q8H PRN pain (-01/23). Please continue to monitor for pain and PRN usage. 2. CHF/CAD: metoprolol 75mg PO BID, isosorbide mononitrate 60mg PO daily, furosemide 40mg PO BID, sacubitril/valsartan 24mg/26mg 1T PO BID thru 06/18/2019 (then 49mg/51mg PO BID 06/19/2019 - 07/03/2019, then 97mg/103mg PO BID starting 07/04/2019), ranolazine 1000mg PO BID, nitroglycerin 0.4mg SL Q5M PRN angina/chest pain. Please continue to monitor BP, HR, renal function and potassium. 3. Hyperlipidemia: atorvastatin 20mg PO QHS. Please continue to monitor for muscle pain. Updated lipid panel in chart. 4. Seizure disorder: levetiracetam 500mg PO BID. Please continue to monitor for S/S of seizure and renal function. 5. Hypokalemia: potassium chloride 10mEq PO QHS. Please continue to monitor for hypo/hyperkalemia. 6. Glaucoma/dry eye: brimonidine 0.2% 1gtt OU BID, timolol 0.5% 1gtt OU BID, latanoprost 1gtt OU QHS, lifitegrast 1gtt OU BID. Please continue to monitor for dry eye and S/S of glaucoma. Psychotropic Medications: *1. Anxiety: alprazolam 0.125mg PO BID PRN anxiety. Patient has not yet required a dose. Please consider GDR by 11/2019. Thanks. 2. Depression/insomnia/appetite loss: mirtazapine 7.5mg PO QHS. Please continue to monitor for improved appetite. New medication so GDR not appropriate. Unnecessary Medications: None Bowel Regimen: Miralax 17gm PO daily PRN constipation, psyllium 1 packet PO daily PRN constipation, bisacodyl 10mg FL daily PRN constipation. Please continue to monitor for constipation and PRN usage. Date of Note:: 06/04/19 - Provider Comments Provider responsibility: Provider responsible to enter orders to implement recommendations <Ted Georges Chi - Last Filed: 06/04/19 19:22> Progress Note - Pharmacy Subjective: [] Objective: Allergies adalimumab [From Humira] Allergy (Verified 05/30/19 21:46) Rash ciprofloxacin HCl [From Cipro] Allergy (Verified 05/30/19 21:46) Unknown doxazosin Allergy (Verified 05/30/19 21:46) Other hydroxyzine [From Vistaril] Allergy (Verified 05/30/19 21:46) Other latex Allergy (Verified 05/30/19 21:46) Rash levofloxacin [From Levaquin] Allergy (Verified 05/30/19 21:46) Unknown lisinopril Allergy (Verified 05/30/19 21:46) Other COUGH Methotrexate Analogues Allergy (Verified 05/30/19 21:46) Hives naproxen Allergy (Verified 05/30/19 21:46) Unknown potassium clavulanate [From Augmentin] Allergy (Verified 05/30/19 21:46) Unknown Sulfa (Sulfonamide Antibiotics) Allergy (Verified 05/30/19 21:46) Unknown amlodipine Adverse Reaction (Severe, Verified 05/30/19 21:46) edema haloperidol lactate [From Haldol] Adverse Reaction (Unknown, Verified 05/30/19 21:46) agitation amoxicillin trihydrate [From Augmentin] Adverse Reaction (Verified 05/30/19 21:46) Upset Stomach hydromorphone HCl [From Dilaudid] Adverse Reaction (Verified 05/30/19 21:46) Other HALLUCINATIONS hydroxychloroquine sulfate [From Plaquenil] Adverse Reaction (Verified 05/30/19 21:46) Other VISION ISSUES Current Medications Generic Name Dose Route Start Last Admin Trade Name Freq PRN Reason Stop Dose Admin Acetaminophen 1,000 mg 06/03/19 13:35 Tylenol PO Q8H PRN Pain Score 1-10/10 Alprazolam 0.125 mg 06/03/19 14:03 Xanax PO BID PRN PRN ANXIETY Atorvastatin Calcium 20 mg 06/03/19 22:00 06/03/19 22:03 Lipitor PO 20 mg QHS JOSLYN Administration Bisacodyl 10 mg 06/03/19 13:41 06/04/19 11:19 Dulcolax RECTAL 10 mg DAILY PRN Administration Constipation Brimonidine Tartrate 1 drop 06/03/19 18:00 06/04/19 17:39 Brimonidine 0.2% 5ml Bottle EACH EYE 1 drop BID JOSLYN Administration Calamine/Phenol 1 applic 06/04/19 06:00 06/04/19 17:39 Calmoseptine Ointment TOPICAL 1 applicatio BID [facility] Administration Protocol Emollient Ointment 1 applic 06/04/19 06:00 06/04/19 17:44 Eucerin Intensive Repair TOPICAL 1 applicatio BID [facility] Administration Protocol Furosemide 40 mg 06/03/19 18:00 06/04/19 17:42 Lasix PO 40 mg BID@1000,1800 JOSLYN Administration Heparin Sodium (Beef Lung) 50 units 06/03/19 16:19 06/04/19 15:53 IV 50 units UD PRN Administration Port-a-Cath (VAD)Heparin Flush Isosorbide Mononitrate 60 mg 06/04/19 06:00 06/04/19 07:04 Imdur PO 60 mg DAILY JOSLYN Administration Latanoprost 1 drop 06/03/19 22:00 06/03/19 22:02 Xalatan Opthalmic EACH EYE 1 drop QHS JOSLYN Administration Levetiracetam 500 mg 06/03/19 18:00 06/04/19 17:42 Keppra Tablet PO 500 mg BID JOSLYN Administration Metoprolol Tartrate 75 mg 06/03/19 18:00 06/04/19 17:45 Lopressor (Beta Brandyn) PO 75 mg BID JOSLYN Administration Mirtazapine 7.5 mg 06/03/19 22:00 06/03/19 22:08 Remeron PO 7.5 mg QHS JOSLYN Administration Nitroglycerin 0.4 mg 06/03/19 14:20 Nitrostat SUBLINGUAL Q5M PRN ANGINA/CHEST PAIN Polyethylene Glycol 17 gm 06/03/19 13:35 Miralax PO DAILY PRN Constipation Potassium Chloride 10 meq 06/03/19 22:00 06/03/19 22:03 K-Dur PO 10 meq QHS JOSLYN Administration Psyllium Hydrophilic Mucilloid 1 packet 06/03/19 13:35 Metamucil PO DAILY PRN PRN Constipation Ranolazine 1,000 mg 06/03/19 18:00 06/04/19 17:47 Ranexa PO 1,000 mg BID JOSLYN Administration Sacubitril/Valsartan 1 each 06/04/19 06:00 06/04/19 17:44 Entresto 24 Mg-26 Mg Tablet PO 06/18/19 06:01 1 each BID JOSLYN Administration Sacubitril/Valsartan 1 each 06/19/19 06:00 Entresto 49 Mg-51 Mg Tablet PO 07/03/19 06:01 BID JOSLYN Sacubitril/Valsartan 1 each 07/04/19 06:00 Entresto 97 Mg-103 Mg Tablet PO BID JOSLYN Sodium Chloride 10 - 40 ml 06/03/19 16:19 06/04/19 15:54 IV 10 ml UD PRN Administration Port-a-Cath (VAD) Flush Sodium Chloride 10 - 40 ml 06/03/19 16:19 0.9% Nacl (Sterile) Posiflush IV UD PRN Port access or dressing change Timolol Maleate 1 drop 06/03/19 18:00 06/04/19 17:49 Timoptic EACH EYE 1 drop BID JOSLYN Administration Tuberculin PPD 5 tu 06/11/19 10:00 Tubersol, Aplisol, Ppd ID 06/11/19 10:01 X1 ONE Problem List (Last Updated 05/30/19 @ 12:57 by MICHELLE He) Seizure disorder (Acute) Acute on chronic systolic and diastolic heart failure, NYHA class 1 (Chronic) Vital Signs Temp Pulse Resp BP Pulse Ox 97.8 F 64 16 130/46 H 94 06/04/19 14:20 06/04/19 17:45 06/04/19 14:20 06/04/19 14:20 06/04/19 14:20 Oxygen Delivery Method Room Air Weight: 48.3 kg Body Mass Index (BMI) 18.5 Sodium 142 mmol/L (136-145) 06/04/19 05:10 Potassium 4.8 mmol/L (3.5-5.1) 06/04/19 05:10 Chloride 110 mmol/L (98-107) H 06/04/19 05:10 Carbon Dioxide 25.0 mmol/L (21.0-32.0) 06/04/19 05:10 Anion Gap 7 (5-15) 06/04/19 05:10 BUN 52 mg/dL (7-18) H 06/04/19 05:10 Creatinine 2.19 mg/dL (0.55-1.02) H 06/04/19 05:10 Est GFR (MDRD) Af Amer 28 mL/min (>60) L 06/04/19 05:10 Est GFR (MDRD) Non-Af 23 mL/min (>60) L 06/04/19 05:10 BUN/Creatinine Ratio 23.7 RATIO (10-20) H 06/04/19 05:10 Glucose 110 mg/dL (74-106) H 06/04/19 05:10 Assessment/Plan: Psychotropic Medications: Unnecessary Medications: Bowel Regimen: - Provider Comments Provider responsibility: Provider responsible to enter orders to implement recommendations Provider Comments to Recommendations by Pharmacy: Agree
[2019-06-04] MEDS: 0.9% Saline Lock 10 ML Syringe IV (15:54)
[2019-06-04 17:45] VITALS: PULSE 64
[2019-06-04] MEDS: Mirtazapine 15 MG Tablet 7.5 MG PO (20:17)
[2019-06-04] MEDS: Atorvastatin Calcium 20 MG Tablet PO (20:17)
[2019-06-04] MEDS: Latanoprost 0.005% 1 Bottle 1 DRP EACH EYE (20:18)
[2019-06-04] MEDS: Acetaminophen 500 MG Tablet 1000 MG PO (20:37)
[2019-06-05] MEDS: Ranolazine 500 MG Tablet 1000 MG PO ×2 (04:58→17:15)
[2019-06-05] MEDS: Acetaminophen 500 MG Tablet 1000 MG PO (04:58)
[2019-06-05] MEDS: Isosorbide Mononitrate 60 MG Tablet PO ×2 (04:58→05:03)
[2019-06-05 04:59] VITALS: BP 153/65; PULSE 59
[2019-06-05] MEDS: SACUBITRIL/VALSARTAN 24/26 MG TABLET 1 EACH PO ×2 (04:59→17:15)
[2019-06-05] MEDS: levETIRAcetam 500 MG Tablet PO ×2 (04:59→17:15)
[2019-06-05] MEDS: Metoprolol Tartrate 25 MG Tablet 75 MG PO (04:59)
[2019-06-05] MEDS: BRIMONIDINE 0.2% 5ML BOTTLE 1 DRP EACH EYE ×3 (05:04→17:16)
[2019-06-05] MEDS: Timolol 0.5% 5ML OPTH.BTL 1 DRP EACH EYE ×2 (05:05→17:17)
[2019-06-05] MEDS: Menthol/Lanolin/Calamine/Znox 113 GM Tube 1 APPLIC TOPICAL ×2 (05:05→17:29)
[2019-06-05] MEDS: LIFITEGRAST 1 EACH DROPERETTE OP ×2 (05:06→17:23)
--- NOTE | 2019-06-05 07:15 | NURSING ---
Pt daughter Anaya ALFARO called in this morning, if Pt has any changes during the day daughter would like notified. Anaya was worried because she was called last night by Pt brother because Pt was very tired, so she came in an visited late at night and said Pt was falling asleep while carrying on a conversation.
[2019-06-05] MEDS: Furosemide 40 MG Tablet PO ×2 (07:54→17:16)
[2019-06-05 14:32] VITALS: BP 132/48; PULSE 68; RESP 16; TEMP 36.7; O2SAT 96
[2019-06-05 17:19] VITALS: BP 132/48; PULSE 58
[2019-06-05] MEDS: Atorvastatin Calcium 20 MG Tablet PO (21:37)
[2019-06-05] MEDS: Mirtazapine 15 MG Tablet 7.5 MG PO (21:37)
[2019-06-05] MEDS: Latanoprost 0.005% 1 Bottle 1 DRP EACH EYE (21:38)
[2019-06-06] MEDS: Menthol/Lanolin/Calamine/Znox 113 GM Tube 1 APPLIC TOPICAL ×2 (06:48→17:58)
[2019-06-06] MEDS: Timolol 0.5% 5ML OPTH.BTL 1 DRP EACH EYE ×2 (06:50→17:55)
[2019-06-06] MEDS: SACUBITRIL/VALSARTAN 24/26 MG TABLET 1 EACH PO ×2 (06:53→18:01)
[2019-06-06] MEDS: Ranolazine 500 MG Tablet 1000 MG PO ×2 (06:53→17:55)
[2019-06-06] MEDS: levETIRAcetam 500 MG Tablet PO ×2 (06:53→17:57)
[2019-06-06] MEDS: LIFITEGRAST 1 EACH DROPERETTE OP ×2 (07:02→18:03)
[2019-06-06 07:05] VITALS: BP 152/75; PULSE 60
[2019-06-06] MEDS: Metoprolol Tartrate 25 MG Tablet 75 MG PO ×2 (07:05→18:01)
[2019-06-06 10:00] VITALS: RESP 16
[2019-06-06] MEDS: Furosemide 40 MG Tablet PO ×2 (10:22→17:58)
[2019-06-06 16:00] VITALS: BP 115/61; PULSE 66; RESP 18; TEMP 36.6; O2SAT 96
[2019-06-06] MEDS: BRIMONIDINE 0.2% 5ML BOTTLE 1 DRP EACH EYE (17:54)
[2019-06-06 18:01] VITALS: BP 115/61; PULSE 66
[2019-06-06] MEDS: Mirtazapine 15 MG Tablet 7.5 MG PO (20:39)
[2019-06-06] MEDS: Atorvastatin Calcium 20 MG Tablet PO (20:39)
[2019-06-06] MEDS: Latanoprost 0.005% 1 Bottle 1 DRP EACH EYE (20:42)
[2019-06-07] MEDS: BRIMONIDINE 0.2% 5ML BOTTLE 1 DRP EACH EYE ×2 (06:19→17:28)
[2019-06-07] MEDS: Ranolazine 500 MG Tablet 1000 MG PO ×2 (06:22→17:35)
[2019-06-07] MEDS: levETIRAcetam 500 MG Tablet PO ×2 (06:22→17:31)
[2019-06-07] MEDS: Isosorbide Mononitrate 60 MG Tablet PO (06:22)
[2019-06-07 06:24] VITALS: BP 140/65; PULSE 72
[2019-06-07] MEDS: SACUBITRIL/VALSARTAN 24/26 MG TABLET 1 EACH PO ×2 (06:24→17:30)
[2019-06-07] MEDS: Metoprolol Tartrate 25 MG Tablet 75 MG PO ×2 (06:24→17:33)
[2019-06-07] MEDS: Timolol 0.5% 5ML OPTH.BTL 1 DRP EACH EYE ×2 (06:25→17:36)
[2019-06-07] MEDS: Menthol/Lanolin/Calamine/Znox 113 GM Tube 1 APPLIC TOPICAL ×2 (06:27→17:40)
[2019-06-07] MEDS: LIFITEGRAST 1 EACH DROPERETTE OP ×2 (06:30→17:36)
[2019-06-07] MEDS: Acetaminophen 500 MG Tablet 1000 MG PO (08:37)
[2019-06-07] MEDS: Furosemide 40 MG Tablet PO ×2 (10:39→17:32)
[2019-06-07 14:37] VITALS: BP 118/50; PULSE 58; RESP 16; TEMP 36.7; O2SAT 100
[2019-06-07 17:33] VITALS: BP 118/54; PULSE 66
[2019-06-07 18:03] VITALS: PULSE 66
[2019-06-07] MEDS: Mirtazapine 15 MG Tablet 7.5 MG PO (20:34)
[2019-06-07] MEDS: Atorvastatin Calcium 20 MG Tablet PO (20:35)
[2019-06-07] MEDS: Polyethylene Glycol 3350 17 GM PACKET PO (20:38)
[2019-06-07] MEDS: Latanoprost 0.005% 1 Bottle 1 DRP EACH EYE (20:38)
[2019-06-08] MEDS: LIFITEGRAST 1 EACH DROPERETTE OP ×2 (05:27→17:34)
[2019-06-08] MEDS: Timolol 0.5% 5ML OPTH.BTL 1 DRP EACH EYE ×2 (05:27→17:41)
[2019-06-08] MEDS: levETIRAcetam 500 MG Tablet PO ×2 (05:28→17:32)
[2019-06-08] MEDS: Isosorbide Mononitrate 60 MG Tablet PO (05:28)
[2019-06-08] MEDS: SACUBITRIL/VALSARTAN 24/26 MG TABLET 1 EACH PO ×2 (05:28→17:32)
[2019-06-08] MEDS: BRIMONIDINE 0.2% 5ML BOTTLE 1 DRP EACH EYE ×2 (05:28→17:30)
[2019-06-08] MEDS: Ranolazine 500 MG Tablet 1000 MG PO ×2 (05:28→17:33)
[2019-06-08 05:30] VITALS: BP 153/64; PULSE 64
[2019-06-08] MEDS: Metoprolol Tartrate 25 MG Tablet 75 MG PO ×2 (05:30→17:33)
[2019-06-08] MEDS: Menthol/Lanolin/Calamine/Znox 113 GM Tube 1 APPLIC TOPICAL ×2 (05:37→17:54)
[2019-06-08] MEDS: Bisacodyl 10 MG Suppository RECTAL (06:28)
[2019-06-08] MEDS: Furosemide 40 MG Tablet PO ×2 (09:33→17:32)
[2019-06-08 09:58] VITALS: PULSE 60; RESP 16; O2SAT 98
[2019-06-08] MEDS: Acetaminophen 500 MG Tablet 1000 MG PO ×2 (10:19→20:32)
[2019-06-08] MEDS: Psyllium 1 PACKET PO (14:11)
[2019-06-08] MEDS: Hydrocortisone 2.5% Crm 1 APPLIC TOPICAL (14:48)
[2019-06-08 14:54] VITALS: BP 124/53; PULSE 63; RESP 16; TEMP 36.7; O2SAT 93
[2019-06-08 14:54] LABS: Bacteria 0 SEEN /hpf (None Seen); Mucous, Urine 0 SEEN /hpf (<or=2+); Red Blood Cells-Urine 0 SEEN /hpf (0-5); Squamous Epithelial Cells - UA 0 SEEN /hpf (5-10)
[2019-06-08 14:56] LABS: Color, Urine Yellow (Yellow); Glucose, Dipstick Normal (Normal); Ketone-Dipstick Negative (Negative); Leukocyte Esterase-Dipstick 25 /ul (Negative); Nitrite-Dipstick Negative (Negative); Occult Blood-Urine Negative /ul (Negative); Protein-Dipstick 30 mg/dl (Negative); Urine Bilirubin Dipstick Negative (Negative); Urine Clarity Clear (Clear); Urine Urobilinogen Normal (Normal); Urine pH 6.5 (5.0 - 8.0)
[2019-06-08 15:09] LABS: White Blood Cells 0-5 SEEN /hpf (0-5)
[2019-06-08 17:33] VITALS: BP 124/53; PULSE 63
--- NOTE | 2019-06-08 17:59 | VDLE_ITS ---
Reason For Study: Swelling RIGHT LEFT GSV is normal. GSV is normal. CFV is compressible, spontaneous, competent CFV is compressible, spontaneous, competent, and demonstrates pulsatile venous flow. and demonstrates pulsatile venous flow. FV is compressible, spontaneous, competent FV is compressible, spontaneous, competent and demonstrates pulsatile venous flow. and demonstrates pulsatile venous flow. POP V is compressible, spontaneous, competent POP V is compressible, spontaneous, competent and demonstrates pulsatile venous flow. and demonstrates pulsatile venous flow. T/P Trunk is compressible. T/P Trunk is compressible. PTV is compressible. PTV is compressible. RT PerV is compressible. LT PerV is compressible. Procedure Exam performed portable in patient room. A preliminary report was called and/or faxed to TCU RN. Interpretation Summary No evidence for acute deep venous thrombosis bilateral lower extremities with patent and compressible bilateral great saphenous veins. Pulsatile venous flow is noted bilaterally suspicious for proximal venous hypertension, etiology not determined. Clinical correlation appropriate Ordering Physician: Ted Georges Referring Physician: Carlos A Lopez Performed By: Krystyna Purvis RVT
--- NOTE | 2019-06-08 18:06 | NURSING ---
last documented BM 06/04, BS hypoactive, passing gas. pt also c/o LT calf pain/ positve homans sign. pitting edema noted to LLE. 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 Dr Georges updated, new order for doppler & administer SSEx1. pt updated.
--- NOTE | 2019-06-08 18:25 | NURSING ---
Addendum entered by Cinthia Villafana 06/08/19 18:30: Dr Georges notified, new order for UA C&S. UA back and WNLs. no new orders. Original Note: at approx 10am Pt c/o burning while voiding and vaginal itching. Rocio-area observed and no redness/discharge at this time, RN updated
[2019-06-08] MEDS: Polyethylene Glycol 3350 17 GM PACKET PO (20:31)
[2019-06-08] MEDS: Mirtazapine 15 MG Tablet 7.5 MG PO (20:32)
[2019-06-08] MEDS: Atorvastatin Calcium 20 MG Tablet PO (20:33)
[2019-06-08] MEDS: Latanoprost 0.005% 1 Bottle 1 DRP EACH EYE (20:57)
--- NOTE | 2019-06-08 21:05 | NURSING ---
194 pt given sse as per order and tolerated well. pt has small results of hard formed stool with brown liquid in the bsc. pt given miralax with hs medication as well. heels were noted to be dark red in color and pt reports pain in feet and ankles when up an 8/10 on pain scale. tylenol es given for comfort. mepilex applied to bliateral heels.
[2019-06-09] MEDS: LIFITEGRAST 1 EACH DROPERETTE OP ×2 (05:24→18:21)
[2019-06-09] MEDS: Timolol 0.5% 5ML OPTH.BTL 1 DRP EACH EYE ×2 (05:26→17:31)
[2019-06-09 05:27] VITALS: BP 151/69; PULSE 67
[2019-06-09] MEDS: BRIMONIDINE 0.2% 5ML BOTTLE 1 DRP EACH EYE ×2 (05:27→17:32)
[2019-06-09] MEDS: SACUBITRIL/VALSARTAN 24/26 MG TABLET 1 EACH PO ×2 (05:27→17:33)
[2019-06-09] MEDS: Metoprolol Tartrate 25 MG Tablet 75 MG PO ×2 (05:27→17:34)
[2019-06-09] MEDS: Isosorbide Mononitrate 60 MG Tablet PO (05:27)
[2019-06-09] MEDS: levETIRAcetam 500 MG Tablet PO ×2 (05:27→17:33)
[2019-06-09] MEDS: Ranolazine 500 MG Tablet 1000 MG PO ×2 (05:27→17:35)
[2019-06-09] MEDS: Menthol/Lanolin/Calamine/Znox 113 GM Tube 1 APPLIC TOPICAL ×2 (05:33→17:32)
[2019-06-09] MEDS: Polyethylene Glycol 3350 17 GM PACKET PO (05:41)
[2019-06-09] MEDS: Furosemide 40 MG Tablet PO ×2 (10:45→17:34)
[2019-06-09 16:00] VITALS: BP 136/67; PULSE 66; RESP 16; TEMP 36.6; O2SAT 95
[2019-06-09 17:34] VITALS: BP 136/67; PULSE 67
[2019-06-09] MEDS: Senna/Docusate Sodium 1 Tablet PO (17:35)
[2019-06-09 20:08] VITALS: PULSE 64; O2SAT 97
[2019-06-09] MEDS: Latanoprost 0.005% 1 Bottle 1 DRP EACH EYE (20:38)
[2019-06-09] MEDS: Mirtazapine 15 MG Tablet 7.5 MG PO (20:38)
[2019-06-09] MEDS: Atorvastatin Calcium 20 MG Tablet PO (20:38)
[2019-06-10] MEDS: Acetaminophen 500 MG Tablet 1000 MG PO (04:32)
[2019-06-10] MEDS: Polyethylene Glycol 3350 17 GM PACKET PO (04:32)
[2019-06-10 04:33] VITALS: BP 146/53; PULSE 90
[2019-06-10] MEDS: Senna/Docusate Sodium 1 Tablet PO ×2 (04:33→16:52)
[2019-06-10] MEDS: Metoprolol Tartrate 25 MG Tablet 75 MG PO ×2 (04:33→16:50)
[2019-06-10] MEDS: BRIMONIDINE 0.2% 5ML BOTTLE 1 DRP EACH EYE ×2 (04:37→16:53)
[2019-06-10] MEDS: Timolol 0.5% 5ML OPTH.BTL 1 DRP EACH EYE ×2 (04:38→16:53)
[2019-06-10] MEDS: Menthol/Lanolin/Calamine/Znox 113 GM Tube 1 APPLIC TOPICAL ×2 (04:39→16:54)
[2019-06-10] MEDS: LIFITEGRAST 1 EACH DROPERETTE OP ×2 (06:08→16:53)
[2019-06-10] MEDS: SACUBITRIL/VALSARTAN 24/26 MG TABLET 1 EACH PO ×2 (06:08→16:51)
[2019-06-10] MEDS: Ranolazine 500 MG Tablet 1000 MG PO ×2 (06:08→16:51)
[2019-06-10] MEDS: levETIRAcetam 500 MG Tablet PO ×2 (06:08→16:51)
[2019-06-10] MEDS: Isosorbide Mononitrate 60 MG Tablet PO (06:08)
[2019-06-10] MEDS: Furosemide 40 MG Tablet PO ×2 (09:41→16:51)
[2019-06-10 10:15] VITALS: PULSE 60; RESP 16; O2SAT 92
--- NOTE | 2019-06-10 14:03 | CASEMGMT ---
Social Work Reviewed and agreed with social work actuarial internship documentation on this date. Twila Gutierres, HOB MILL OPERATOR AUTH SPECIALIST
[2019-06-10 14:38] VITALS: BP 133/61; PULSE 60; RESP 16; TEMP 36.4; O2SAT 99
[2019-06-10 16:50] VITALS: PULSE 60
[2019-06-10] MEDS: Mirtazapine 15 MG Tablet 7.5 MG PO (21:35)
[2019-06-10] MEDS: Atorvastatin Calcium 20 MG Tablet PO (21:35)
[2019-06-10] MEDS: Latanoprost 0.005% 1 Bottle 1 DRP EACH EYE (21:35)
[2019-06-11] MEDS: Acetaminophen 500 MG Tablet 1000 MG PO ×2 (01:02→11:37)
[2019-06-11 05:55] LABS: Absolute Lymphocyte Count 1.83 X10^3/uL (0.83-4.51); Basophil# 0.07 X10^3/uL; Basophil% 0.7 % (0-1); Eosinophil# 0.19 X10^3/uL; Eosinophils% 1.9 % (0-5); Hematocrit 35.2 % (37-47); Hemoglobin 10.6 g/dL (12.0-15.0); Lymphocyte # 1.83 X10^3/ul (4.0); Lymphocyte % 18.1 % (19-41); Mean Corp Hgb Conc 30.1 g/dL (32-36); Mean Corpuscular Hgb 34.3 pg (27.0-32.0); Mean Corpuscular Volume 113.9 fL (81-99); Mean Platelet Vol. 12.3 fl (6.2-12.0); Monocyte# 0.98 X10^3/uL; Monocyte% 9.7 % (0-10); NRBC Flagged by Analyzer 0 % (0-5); Neutrophil # 6.97 X10^3/uL (2.7-7.7); Neutrophil % 69.1 % (47-70); POSITIVE MORPHOLOGY YES; Platelet Count 189 K/mm3 (150-450); RBC Distribution Width CV 18.2 % (11.6-14.6); RBC Distribution Width SD 76.6 fl (35.1-43.9); Red Blood Count 3.09 M/mm3 (4.2-5.4); White Blood Count 10.1 K/mm3 (4.4-11.0)
[2019-06-11 06:00] LABS: Differential Indicated SCAN CRITERIA MET
[2019-06-11 06:02] VITALS: BP 152/61; PULSE 68
[2019-06-11] MEDS: Ranolazine 500 MG Tablet 1000 MG PO ×2 (06:02→17:32)
[2019-06-11] MEDS: Isosorbide Mononitrate 60 MG Tablet PO (06:02)
[2019-06-11] MEDS: SACUBITRIL/VALSARTAN 24/26 MG TABLET 1 EACH PO ×2 (06:02→17:32)
[2019-06-11] MEDS: Senna/Docusate Sodium 1 Tablet PO ×2 (06:02→17:32)
[2019-06-11] MEDS: Metoprolol Tartrate 25 MG Tablet 75 MG PO ×2 (06:02→17:33)
[2019-06-11] MEDS: levETIRAcetam 500 MG Tablet PO ×2 (06:02→17:32)
[2019-06-11] MEDS: BRIMONIDINE 0.2% 5ML BOTTLE 1 DRP EACH EYE ×2 (06:05→17:27)
[2019-06-11] MEDS: Menthol/Lanolin/Calamine/Znox 113 GM Tube 1 APPLIC TOPICAL ×2 (06:06→17:28)
[2019-06-11] MEDS: Polyethylene Glycol 3350 17 GM PACKET PO (06:06)
[2019-06-11] MEDS: Timolol 0.5% 5ML OPTH.BTL 1 DRP EACH EYE ×2 (06:07→17:31)
[2019-06-11] MEDS: LIFITEGRAST 1 EACH DROPERETTE OP ×2 (06:08→17:26)
[2019-06-11 06:15] LABS: Anion Gap 6 (5-15); BUN 42 mg/dL (7-18); Calcium,Total 8.5 mg/dL (8.5-10.1); Chloride 109 mmol/L (98-107); Creatinine, Serum 2.21 mg/dL (0.55-1.02); EST Glomerular Filtration Rate 23 mL/min (>60); Est Glom Filt Rate - Afr Amer 28 mL/min (>60); Estimated Creatinine Clearance 15.37 ml/min; Glucose 91 mg/dL (74-106); Potassium 4.8 mmol/L (3.5-5.1); Sodium Level 141 mmol/L (136-145)
[2019-06-11 06:35] LABS: Differential Comment SCANNED
--- NOTE | 2019-06-11 11:11 | NURSING ---
patient returned from doctor appointment. Received written order fro thigh high prabhu zaman. Will make Dr. Georges aware.
[2019-06-11] MEDS: Furosemide 40 MG Tablet PO ×2 (11:20→17:31)
[2019-06-11] MEDS: Tuberculin,Purif.prot.deriv. 50 TU/ML Vial 5 ML ID (11:21)
[2019-06-11] MEDS: Hydrocortisone 2.5% Crm 1 APPLIC TOPICAL (11:37)
--- NOTE | 2019-06-11 11:37 | CASEMGMT ---
Social Work IDT met with patient and daughter for care plan meeting. Discussed patient's progress in therapy. Pt is min assist for LE ADLS and toileting tasks, SBA for UE ADLS, CGA for transfers and walking 165 ft FWW CGA. Pt is on a mech soft, nectar thick, diet under the cho free water protocol. Intake is variable and eats the mighty shakes. Explained insurance and awaiting outcome from 06/09. Pt understands continued stay is not guaranteed. Will continue to follow. Twila Gutierres, INDUSTRY CONSULTANT EXTRUDER OPERATOR HORIZONTAL
[2019-06-11 13:45] VITALS: BP 132/62; PULSE 62; RESP 16; TEMP 36.6; O2SAT 94
--- NOTE | 2019-06-11 15:53 | CHAPLAIN ---
Type of Pastoral Visit _x__ Initial Visit ___ Follow-up Visit ___ On-call Visit ___ General Patient Visit ___ Spiritual Assessment ___ Family Conference ___ Bereavement ___ Rapid Response ___ Code Blue ___ Other (describe below) Pastoral Care Referral From ___ Patient _x__ Family ___ Nurse ___ Physician ___ Collar Folder Operator ___ Elementary Spanish Teacher ___ Other (describe below) Sacrament/Intervention _x__ Active listening ___ Anointing ___ Taoism ___ Bereavement ___ Communion ___ Miladys exploration ___ _x__ Life review _x__ Prayer ___ Reconciliation ___ Sacrament of Sick _x__ Supportive presence ___ Wedding ___ Other (describe below) Pastoral Comments
--- NOTE | 2019-06-11 16:34 | CASEMGMT ---
Social Work Insurance issued LCD 06/13, [place] . Spoke with pt and dtr whom are choosing to appeal. Explained appeal rights. Will continue to follow. Twila Gutierres MSW GARMENT ALTERATION EXAMINER
--- NOTE | 2019-06-11 16:36 | CASEMGMT ---
Social Work Reviewed and agreed with social work lab intern documentation on this date. Twila Gutierres, SERVICE NOW DEVELOPER DIRECTOR CORRECTIONAL AGENCY
[2019-06-11 17:33] VITALS: BP 132/62; PULSE 62
[2019-06-11 20:57] VITALS: PULSE 58; RESP 16; O2SAT 97
[2019-06-11] MEDS: Atorvastatin Calcium 20 MG Tablet PO (21:06)
[2019-06-11] MEDS: Mirtazapine 15 MG Tablet 7.5 MG PO (21:07)
[2019-06-11] MEDS: Latanoprost 0.005% 1 Bottle 1 DRP EACH EYE (21:09)
--- NOTE | 2019-06-11 21:54 | DCINST_ITS ---
- Discharge Diagnoses Current Active Problems: Current Active and Chronic Problems (Last Updated 05/30/19 @ 12:57 by MICHELLE He) Seizure disorder (Acute) Acute on chronic systolic and diastolic heart failure, NYHA class 1 (Chronic) You will use the following diet at home:: No restrictions Your food should be the consistency of: Mechanical soft (ground) Your liquids should be the consistency of: Otis Thick Discharge Activity: Return to Normal Activity, May Shower, Use Walker Weight Bearing Status: Weight bearing as tolerated Call your doctor if you observe: Fever of 101 or Higher, Inability to urinate, Inability to have a bowel movement, Shortness of breath, Chest pain, Uncontrolled pain Allergies/Adverse Reactions: Allergies adalimumab [From Humira] Allergy (Verified 05/30/19 21:46) Rash ciprofloxacin HCl [From Cipro] Allergy (Verified 05/30/19 21:46) Unknown doxazosin Allergy (Verified 05/30/19 21:46) Other hydroxyzine [From Vistaril] Allergy (Verified 05/30/19 21:46) Other latex Allergy (Verified 05/30/19 21:46) Rash levofloxacin [From Levaquin] Allergy (Verified 05/30/19 21:46) Unknown lisinopril Allergy (Verified 05/30/19 21:46) Other COUGH Methotrexate Analogues Allergy (Verified 05/30/19 21:46) Hives naproxen Allergy (Verified 05/30/19 21:46) Unknown potassium clavulanate [From Augmentin] Allergy (Verified 05/30/19 21:46) Unknown Sulfa (Sulfonamide Antibiotics) Allergy (Verified 05/30/19 21:46) Unknown amlodipine Adverse Reaction (Severe, Verified 05/30/19 21:46) edema haloperidol lactate [From Haldol] Adverse Reaction (Unknown, Verified 05/30/19 21:46) agitation amoxicillin trihydrate [From Augmentin] Adverse Reaction (Verified 05/30/19 21:46) Upset Stomach hydromorphone HCl [From Dilaudid] Adverse Reaction (Verified 05/30/19 21:46) Other HALLUCINATIONS hydroxychloroquine sulfate [From Plaquenil] Adverse Reaction (Verified 05/30/19 21:46) Other VISION ISSUES Medications to take at Discharge atorvastatin 20 mg tablet 20 mg PO QHS 06/21/18 potassium chloride 10 mEq capsule,extended release 10 meq PO QHS cap 06/21/18 Brimonidine Tartrate/Timolol [Combigan Eye Drops] 1 drp EACH EYE BID 02/13/19 Latanoprost 1 drp EACH EYE QHS 02/13/19 Ranolazine [Ranexa] 1,000 mg PO BID 03/20/19 Acetaminophen [Tylenol] 1,000 mg PO Q8H PRN 04/28/19 Lifitegrast [Xiidra] 1 ea OP BID 04/29/19 Nitroglycerin [Nitrostat] 0.4 mg SUBLINGUAL Q5M PRN 05/27/19 Isosorbide Mononitrate [Isosorbide Mononitrate ER] 60 mg PO DAILY #0 tab 06/03/19 Levetiracetam [Keppra] 500 mg PO BID #60 tab 06/03/19 Metoprolol Tartrate [Lopressor (beta elena)] 75 mg PO BID #0 06/03/19 Furosemide [Lasix] 40 mg PO BID@1000,1800 #60 tab 06/11/19 Hydrocortisone 2.5% Crm [Hytone] 1 applic TOPICAL BID PRN PRN #1 tube 06/11/19 Menthol/Lanolin/Calamine/Znox [Calmoseptine Ointment] 1 applic TOPICAL BID tube 06/11/19 Mirtazapine [Remeron] 7.5 mg PO QHS #15 tab 06/11/19 Sacubitril/Valsartan 24/26 mg [Entresto 24 mg-26 mg Tablet] 1 ea PO BID #8 tab 06/11/19 Sacubitril/Valsartan 49-51 mg [Entresto 49 mg-51 mg Tablet] 1 ea PO BID #60 tab 06/11/19 levETIRAcetam tablet [Keppra tablet] 500 mg PO BID #60 tab 06/11/19 The following prescriptions were given: Sacubitril/Valsartan 24/26 mg [Entresto 24 mg-26 mg Tablet] 1 ea PO BID #8 tab Transmission Status: Pending to [facility]24 Sacubitril/Valsartan 49-51 mg [Entresto 49 mg-51 mg Tablet] 1 ea PO BID #60 tab Transmission Status: Sent to [facility] 1724 Hydrocortisone 2.5% Crm [Hytone] 1 applic TOPICAL BID PRN PRN #1 tube PRN Reason: itching/redness Transmission Status: Pending to [facility] 172 levETIRAcetam tablet [Keppra tablet] 500 mg PO BID #60 tab Transmission Status: Pending to [facility] 172 Furosemide [Lasix] 40 mg PO BID@1000,1800 #60 tab Transmission Status: Pending to [facility] 172 Mirtazapine [Remeron] 7.5 mg PO QHS #15 tab Transmission Status: Pending to [facility]24 Primary Care Physician: Demarco Lopez MD [Primary Care Provider] - Please follow up with your Primary Care Physician in: 1 week. Test Results: Test results from this visit will be discussed in further detail at your follow- up appointment, if applicable. Please Follow Up With: Nahid Hernandez MD When: 2 weeks Please Follow Up With: Zeferino Farrar MD When: 2-3 weeks Please Follow Up With: Octaviano Macias DO When: Palliative Medicine Please Follow Up With: Dr Fernández When: neurologist Proposed Discharge Date: 06/14/19
--- NOTE | 2019-06-11 21:56 | DS.PCM_ITS ---
Discharge Date and Diagnosis - Problem List Patient Problems: Active and Suspected Problems (Last Updated 05/30/19 @ 12:57 by MICHELLE He) Seizure disorder (Acute) Date of Admission: 06/03/19 Date of Discharge: 06/14/19 - Primary Discharge Diagnosis Active and Suspected Problems (Last Updated 05/30/19 @ 12:57 by MICHELLE He) Seizure disorder (Acute) - Secondary Discharge Diagnosis Chronic Problems (Last Updated 05/30/19 @ 12:57 by MICHELLE He) Acute on chronic kidney failure (Chronic) Fecal impaction of colon (Chronic) Hypertension (Chronic) Coronary artery disease (Chronic) Hypokalemia (Chronic) Glaucoma (Chronic) Allergic rhinitis (Chronic) Dry eye (Chronic) Claustrophobia (Chronic) Anxiety (Chronic) Acute on chronic systolic and diastolic heart failure, NYHA class 1 (Chronic) CHF (congestive heart failure) (Chronic) Lower extremity edema (Chronic) Atherosclerotic heart disease of [place] coronary artery without angina pectoris (Chronic) History of non-ST elevation myocardial infarction (NSTEMI) (Chronic 04/2019) 05/2018, 03/2019, 04/2019 Essential (primary) hypertension (Chronic) Hyperlipemia (Chronic) 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) Iron deficiency anemia (Chronic) Recurrent falls (Chronic) Hospital Course and Treatment Imaging Results: 06/03/19 13:38 Diet: Regular Diet Food consistency:: Mechanical Soft/Ground Liquid Consistency:: [place] Thick Type of Dietary Supplement:: Ensure Clear Is pt able to select menu?: Yes Diet Comments: supervised, add gravy/sauce to tray/moist food; meds whole w/puree Labs (Last 48 Hours) 06/11/19 06/11/19 05:15 05:15 WBC 10.1 RBC 3.09 L Hgb 10.6 L Hct 35.2 L MCV 113.9 H MCH 34.3 H MCHC 30.1 L RDW Std Deviation 76.6 H RDW Coeff of Myke 18.2 H Plt Count 189 MPV 12.3 H Immature Gran % (Auto) 0.500 Neut % (Auto) 69.1 Lymph % (Auto) 18.1 L [place] % (Auto) 9.7 Eos % (Auto) 1.9 Baso % (Auto) 0.7 Absolute Neuts (auto) 7.0 Absolute Lymphs (auto) 1.83 Nucleated RBC % 0 Differential Comment SCANNED Sodium 141 Potassium 4.8 Chloride 109 H Carbon Dioxide 26.0 Anion Gap 6 BUN 42 H Creatinine 2.21 H Estim Creat Clear Calc 15.37 Est GFR (MDRD) Af Amer 28 L Est GFR (MDRD) Non-Af 23 L BUN/Creatinine Ratio 19.0 Glucose 91 Calcium 8.5 Microbiology 06/08/19 14:52 Urine, Random Urine Culture - Final Culture exhibits no growth. Operations: None Procedures: None Summary of Care Provided: The patient is a 78 year old Female with below past medical history hospitalized for seizure disorder secondary to transient hypoxia, complicated by encephalopathy, aspiration pneumonia, admitted to TCU with debility, here for rehabilitation, strengthening, prior to disposition determination. Keppra 500MG twice daily added for seizure disorder, I think it was secondary to transient hypoxia from aspiration, can most likely taper off Keppra shortly. Mirtazapine 7.5MG added at bedtime for depression/sleep/appetite loss. Modified barium swallow recommended mechanical soft, nectar thick liquid diet. Resident started on Entresto titration for systolic congestive heart failure. Entresto 24/26MG twice daily thru 06/18/2019. Entresto 49/51MG twice daily from 06/19/2019 thru 07/03/2019. Entresto 97/103MG twice daily from 07/04/2019 continuously. Discharge home alone, Home Health Care for PT/OT. Patient Problems: Active and Suspected Problems (Last Updated 05/30/19 @ 12:57 by MICHELLE He) Seizure disorder (Acute) - Physical Exam Vitals/I&O's: Vital Signs Temp Pulse Resp BP Pulse Ox 97.9 F 58 L 16 132/62 H 97 06/11/19 13:45 06/11/19 20:57 06/11/19 20:57 06/11/19 17:33 06/11/19 20:57 Oxygen Delivery Method Room Air Weight: 47.174 kg Body Mass Index (BMI) 18.5 Intake and Output for Last 24 Hours 06/09/19 06/10/19 06/11/19 23:59 23:59 23:59 Intake Total 440 / 440 358 / 358 340 / 340 Balance 440 / 440 358 / 358 340 / 340 Microbiology Past 72 Hours 06/08/19 14:52 Urine, Random Urine Culture - Final Culture exhibits no growth. Laboratory Results 06/11/19 05:15: WBC 10.1, RBC 3.09 L, Hgb 10.6 L, Hct 35.2 L, MCV 113.9 H, MCH 34.3 H, MCHC 30.1 L, RDW Std Deviation 76.6 H, RDW Coeff of Myke 18.2 H, Plt Count 189, MPV 12.3 H, Immature Gran % (Auto) 0.500, Neut % (Auto) 69.1, Lymph % (Auto) 18.1 L, [place] % (Auto) 9.7, Eos % (Auto) 1.9, Baso % (Auto) 0.7, Absolute Neuts (auto) 7.0, Absolute Lymphs (auto) 1.83, Nucleated RBC % 0, Differential Comment SCANNED 06/11/19 05:15: Sodium 141, Potassium 4.8, Chloride 109 H, Carbon Dioxide 26.0, Anion Gap 6, BUN 42 H, Creatinine 2.21 H, Estim Creat Clear Calc 15.37, Est GFR (MDRD) Af Amer 28 L, Est GFR (MDRD) Non-Af 23 L, BUN/Creatinine Ratio 19.0, Glucose 91, Calcium 8.5 Current Medications Acetaminophen (Tylenol) 1,000 mg PO Q8H PRN PRN Reason: Pain Score 1-10/10 Last Admin: 06/11/19 11:37 Dose: 1,000 mg Documented by: Alprazolam (Xanax) 0.125 mg PO BID PRN PRN PRN Reason: ANXIETY Atorvastatin Calcium (Lipitor) 20 mg PO QHS [facility] Last Admin: 06/11/19 21:06 Dose: 20 mg Documented by: Bisacodyl (Dulcolax) 10 mg RECTAL DAILY PRN PRN Reason: Constipation Last Admin: 06/08/19 06:28 Dose: 10 mg Documented by: Brimonidine Tartrate (Brimonidine 0.2% 5ml Bottle) 1 drop EACH EYE BID [facility] Last Admin: 06/11/19 17:27 Dose: 1 drop Documented by: Calamine/Phenol (Calmoseptine Ointment) 1 applic TOPICAL BID [facility]; Protocol Last Admin: 06/11/19 17:28 Dose: 1 applicatio Documented by: Emollient Ointment (Eucerin Intensive Repair) 1 applic TOPICAL BID JOSLYN; Protocol Last Admin: 06/11/19 17:36 Dose: 1 applicatio Documented by: Epoetin Waylon-epbx (Retacrit) 40,000 unit SC QWEEK PRN PRN Reason: hemoglobin <10.0 g/dl Furosemide (Lasix) 40 mg PO BID@1000,1800 [facility] Last Admin: 06/11/19 17:31 Dose: 40 mg Documented by: Heparin Sodium (Beef Lung) () 50 units IV UD PRN PRN Reason: Port-a-Cath (VAD)Heparin Flush Last Admin: 06/04/19 15:53 Dose: 50 units Documented by: Hydrocortisone (Hytone) 1 applic TOPICAL BID PRN PRN; Protocol PRN Reason: itching/redness Last Admin: 06/11/19 11:37 Dose: 1 applic Documented by: Isosorbide Mononitrate (Imdur) 60 mg PO DAILY [facility] Last Admin: 06/11/19 06:02 Dose: 60 mg Documented by: Latanoprost (Xalatan Opthalmic) 1 drop EACH EYE QHS [facility] Last Admin: 06/11/19 21:09 Dose: 1 drop Documented by: Levetiracetam (Keppra Tablet) 500 mg PO BID [facility] Last Admin: 06/11/19 17:32 Dose: 500 mg Documented by: Metoprolol Tartrate (Lopressor (Beta Brandyn)) 75 mg PO BID [facility] Last Admin: 06/11/19 17:33 Dose: 75 mg Documented by: Mirtazapine (Remeron) 7.5 mg PO QHS [facility] Last Admin: 06/11/19 21:07 Dose: 7.5 mg Documented by: Nitroglycerin (Nitrostat) 0.4 mg SUBLINGUAL Q5M PRN PRN Reason: ANGINA/CHEST PAIN Polyethylene Glycol (Miralax) 17 gm PO DAILY [facility] Last Admin: 06/11/19 06:06 Dose: 17 gm Documented by: Potassium Chloride (K-Dur) 10 meq PO QHS [facility] Last Admin: 06/11/19 21:06 Dose: 10 meq Documented by: Psyllium Hydrophilic Mucilloid (Metamucil) 1 packet PO DAILY PRN PRN PRN Reason: Constipation Last Admin: 06/08/19 14:11 Dose: 1 packet Documented by: Ranolazine (Ranexa) 1,000 mg PO BID [facility] Last Admin: 06/11/19 17:32 Dose: 1,000 mg Documented by: Sacubitril/Valsartan (Entresto 24 Mg-26 Mg Tablet) 1 each PO BID [facility] Stop: 06/18/19 06:01 Last Admin: 06/11/19 17:32 Dose: 1 each Documented by: Sacubitril/Valsartan (Entresto 49 Mg-51 Mg Tablet) 1 each PO BID [facility] Stop: 07/03/19 06:01 Sacubitril/Valsartan (Entresto 97 Mg-103 Mg Tablet) 1 each PO BID [facility] Senna/Docusate Sodium (Senokot-S, Rocio-Colace) 1 tablet PO BID [facility] Last Admin: 06/11/19 17:32 Dose: 1 tablet Documented by: Sodium Chloride () 10 - 40 ml IV UD PRN PRN Reason: Port-a-Cath (VAD) Flush Last Admin: 06/04/19 15:54 Dose: 10 ml Documented by: Sodium Chloride (0.9% Nacl (Sterile) Posiflush) 10 - 40 ml IV UD PRN PRN Reason: Port access or dressing change Timolol Maleate (Timoptic) 1 drop EACH EYE BID [facility] Last Admin: 06/11/19 17:31 Dose: 1 drop Documented by: Discharge Diet: No Restrictions Discharge Activity: Return to Normal Activity, May Shower, Use Walker Weight Bearing Status: Weight bearing as tolerated Call your doctor if you observe: Fever of 101 or Higher, Inability to urinate, Inability to have a bowel movement, Shortness of breath, Chest pain, Uncontrolled pain Home Medications: Medications to take at Discharge atorvastatin 20 mg tablet 20 mg PO QHS 06/21/18 potassium chloride 10 mEq capsule,extended release 10 meq PO QHS cap 06/21/18 Brimonidine Tartrate/Timolol [Combigan Eye Drops] 1 drp EACH EYE BID 02/13/19 Latanoprost 1 drp EACH EYE QHS 02/13/19 Ranolazine [Ranexa] 1,000 mg PO BID 03/20/19 Acetaminophen [Tylenol] 1,000 mg PO Q8H PRN 04/28/19 Lifitegrast [Xiidra] 1 ea OP BID 04/29/19 Nitroglycerin [Nitrostat] 0.4 mg SUBLINGUAL Q5M PRN 05/27/19 Isosorbide Mononitrate [Isosorbide Mononitrate ER] 60 mg PO DAILY #0 tab 06/03/19 Levetiracetam [Keppra] 500 mg PO BID #60 tab 06/03/19 Metoprolol Tartrate [Lopressor (beta brandyn)] 75 mg PO BID #0 06/03/19 Furosemide [Lasix] 40 mg PO BID@1000,1800 #60 tab 06/11/19 Hydrocortisone 2.5% Crm [Hytone] 1 applic TOPICAL BID PRN PRN #1 tube 06/11/19 Menthol/Lanolin/Calamine/Znox [Calmoseptine Ointment] 1 applic TOPICAL BID tube 06/11/19 Mirtazapine [Remeron] 7.5 mg PO QHS #15 tab 06/11/19 Sacubitril/Valsartan 24/26 mg [Entresto 24 mg-26 mg Tablet] 1 ea PO BID #8 tab 06/11/19 Sacubitril/Valsartan 49-51 mg [Entresto 49 mg-51 mg Tablet] 1 ea PO BID #60 tab 06/11/19 levETIRAcetam tablet [Keppra tablet] 500 mg PO BID #60 tab 06/11/19 Following Prescrptions Were Given to Patient: Sacubitril/Valsartan 24/26 mg [Entresto 24 mg-26 mg Tablet] 1 ea PO BID #8 tab Transmission Status: Pending to [facility] Sacubitril/Valsartan 49-51 mg [Entresto 49 mg-51 mg Tablet] 1 ea PO BID #60 tab Transmission Status: Sent to [facility] Hydrocortisone 2.5% Crm [Hytone] 1 applic TOPICAL BID PRN PRN #1 tube PRN Reason: itching/redness Transmission Status: Pending to [facility] levETIRAcetam tablet [Keppra tablet] 500 mg PO BID #60 tab Transmission Status: Pending to [facility] Furosemide [Lasix] 40 mg PO BID@1000,1800 #60 tab Transmission Status: Pending to [facility] Mirtazapine [Remeron] 7.5 mg PO QHS #15 tab Transmission Status: Pending to [facility] Primary Care Physician: Demarco Lopez MD [Primary Care Provider] - Please follow up with your Primary Care Physician in: 1 week. Please Follow Up With: Nahid Hernandez MD When: 2 weeks Please Follow Up With: Zeferino Farrar MD When: 2-3 weeks Please Follow Up With: Octaviano Macias DO When: Palliative Medicine Please Follow Up With: Dr Fernández When: neurologist Disposition: Home with Home Health Minutes spent on discharge:: 35 Patient Condition:: Stable Medical Necessity - Tobacco Use Smoking Status: Never smoker Tobacco Use: Non-smoker Meaningful Use Info Meaningful Use Diagnoses (Choose all that apply): None applicable
[2019-06-12] MEDS: Acetaminophen 500 MG Tablet 1000 MG PO ×2 (03:17→23:34)
[2019-06-12] MEDS: BRIMONIDINE 0.2% 5ML BOTTLE 1 DRP EACH EYE ×2 (05:35→17:19)
[2019-06-12] MEDS: Senna/Docusate Sodium 1 Tablet PO ×2 (05:37→17:22)
[2019-06-12] MEDS: Isosorbide Mononitrate 60 MG Tablet PO (05:37)
[2019-06-12] MEDS: levETIRAcetam 500 MG Tablet PO ×2 (05:37→17:18)
[2019-06-12] MEDS: Ranolazine 500 MG Tablet 1000 MG PO ×2 (05:37→17:21)
[2019-06-12] MEDS: SACUBITRIL/VALSARTAN 24/26 MG TABLET 1 EACH PO ×2 (05:37→17:19)
[2019-06-12 05:40] VITALS: BP 141/57; PULSE 62
[2019-06-12] MEDS: Metoprolol Tartrate 25 MG Tablet 75 MG PO ×2 (05:40→17:19)
[2019-06-12] MEDS: Timolol 0.5% 5ML OPTH.BTL 1 DRP EACH EYE ×2 (05:40→17:22)
[2019-06-12] MEDS: Menthol/Lanolin/Calamine/Znox 113 GM Tube 1 APPLIC TOPICAL ×2 (05:43→17:29)
[2019-06-12] MEDS: LIFITEGRAST 1 EACH DROPERETTE OP ×2 (05:50→17:23)
[2019-06-12] MEDS: Furosemide 40 MG Tablet PO ×2 (09:21→17:19)
[2019-06-12 11:10] VITALS: PULSE 63; RESP 16; O2SAT 95
[2019-06-12 15:21] VITALS: BP 140/60; PULSE 52; RESP 14; TEMP 36.6; O2SAT 98
[2019-06-12 17:19] VITALS: BP 140/60; PULSE 60
[2019-06-12 17:33] VITALS: PULSE 60
[2019-06-12] MEDS: Atorvastatin Calcium 20 MG Tablet PO (20:14)
[2019-06-12] MEDS: Mirtazapine 15 MG Tablet 7.5 MG PO (20:14)
[2019-06-12] MEDS: Latanoprost 0.005% 1 Bottle 1 DRP EACH EYE (20:18)
--- NOTE | 2019-06-12 23:36 | NURSING ---
Pt c/o having pain to bilateral feet states numbness and tingling. Pt bilateral feet are swollen and has redness they are cold to touch. Capillary refill is absent during this time. Given prn tylenol per pt request. Legs are elevated on pillow during this time. Rn made aware.
[2019-06-13] MEDS: BRIMONIDINE 0.2% 5ML BOTTLE 1 DRP EACH EYE ×2 (05:32→17:23)
[2019-06-13] MEDS: Menthol/Lanolin/Calamine/Znox 113 GM Tube 1 APPLIC TOPICAL ×2 (05:32→17:26)
[2019-06-13] MEDS: Timolol 0.5% 5ML OPTH.BTL 1 DRP EACH EYE ×2 (05:38→17:31)
[2019-06-13] MEDS: levETIRAcetam 500 MG Tablet PO ×2 (05:40→17:29)
[2019-06-13] MEDS: Senna/Docusate Sodium 1 Tablet PO ×2 (05:40→17:30)
[2019-06-13] MEDS: SACUBITRIL/VALSARTAN 24/26 MG TABLET 1 EACH PO ×2 (05:40→17:29)
[2019-06-13] MEDS: Ranolazine 500 MG Tablet 1000 MG PO ×2 (05:40→17:29)
[2019-06-13] MEDS: Isosorbide Mononitrate 60 MG Tablet PO (05:40)
[2019-06-13 05:44] VITALS: BP 141/57; PULSE 60
[2019-06-13] MEDS: Metoprolol Tartrate 25 MG Tablet 75 MG PO ×2 (05:44→17:32)
[2019-06-13] MEDS: LIFITEGRAST 1 EACH DROPERETTE OP ×2 (05:45→17:34)
--- NOTE | 2019-06-13 09:37 | CASEMGMT ---
Social Work Reviewed and agreed with social work biology internship documentation on this date. Twila Gutierres, GEOPHYSICAL OBSERVER DRILL PRESS OPERATOR FOR METAL
--- NOTE | 2019-06-13 10:06 | MDS.RN ---
Information for the mds was obtained from review of the clinical record, interview of resident, staff, and direct observation of resident's care.
[2019-06-13] MEDS: Furosemide 40 MG Tablet PO ×2 (10:23→17:25)
[2019-06-13] MEDS: Acetaminophen 500 MG Tablet 1000 MG PO (10:27)
--- NOTE | 2019-06-13 14:17 | CASEMGMT ---
Social Work Patient's appeal is still under review. Spoke with daughter and pt to discuss plans. Reexplained if pt does not DC and appeal is lost, pt would be financially responsible or pt can still choose to DC . Pt to notify SW with answer. SW faxed referral to [facility] to restart pt services for PT/OT/ST/SN/K[place]ARA if pt does DC. No DME needs. Will continue to follow. Twila Gutierres, SUPERVISOR ORNAMENTAL IRONWORKING RIDES ATTENDANT
[2019-06-13 15:45] VITALS: BP 134/57; PULSE 60; RESP 16; TEMP 36.3; O2SAT 96
[2019-06-13 17:32] VITALS: BP 134/57; PULSE 60
[2019-06-13] MEDS: Latanoprost 0.005% 1 Bottle 1 DRP EACH EYE (21:31)
[2019-06-13] MEDS: Mirtazapine 15 MG Tablet 7.5 MG PO (21:34)
[2019-06-13] MEDS: Atorvastatin Calcium 20 MG Tablet PO (21:34)
[2019-06-13 21:50] VITALS: PULSE 62; RESP 16; O2SAT 97
[2019-06-14] MEDS: BRIMONIDINE 0.2% 5ML BOTTLE 1 DRP EACH EYE ×2 (07:08→17:41)
[2019-06-14] MEDS: Ranolazine 500 MG Tablet 1000 MG PO ×2 (07:09→17:40)
[2019-06-14 07:10] VITALS: BP 161/77; PULSE 65
[2019-06-14] MEDS: SACUBITRIL/VALSARTAN 24/26 MG TABLET 1 EACH PO ×2 (07:10→17:40)
[2019-06-14] MEDS: Metoprolol Tartrate 25 MG Tablet 75 MG PO ×2 (07:10→18:14)
[2019-06-14] MEDS: Isosorbide Mononitrate 60 MG Tablet PO (07:10)
[2019-06-14] MEDS: Senna/Docusate Sodium 1 Tablet PO ×2 (07:10→17:40)
[2019-06-14] MEDS: levETIRAcetam 500 MG Tablet PO ×2 (07:11→17:40)
[2019-06-14] MEDS: Timolol 0.5% 5ML OPTH.BTL 1 DRP EACH EYE ×2 (07:11→17:40)
[2019-06-14] MEDS: Menthol/Lanolin/Calamine/Znox 113 GM Tube 1 APPLIC TOPICAL ×2 (07:15→17:43)
[2019-06-14] MEDS: LIFITEGRAST 1 EACH DROPERETTE OP ×2 (07:16→17:40)
[2019-06-14 10:00] VITALS: PULSE 66; RESP 16; O2SAT 97
[2019-06-14] MEDS: Furosemide 40 MG Tablet PO ×2 (11:23→17:40)
--- NOTE | 2019-06-14 14:15 | CASEMGMT ---
SOCIAL WORK SPOKE WITH PATIENT AND PATIENT'S DAUGHTER CORBIN VIA TELEPHONE CALL. PATIENT WON APPEAL. JORGE ALBERTO MOONEY TO FOLLOW UP ON SUNDAY. NURSING UPDATED. Jeff MCCARTHY, RETAIL AGENT, WATCH CASE POLISHER.
[2019-06-14 18:14] VITALS: BP 125/59; PULSE 62
[2019-06-14] MEDS: Acetaminophen 500 MG Tablet 1000 MG PO (22:55)
[2019-06-14] MEDS: Mirtazapine 15 MG Tablet 7.5 MG PO (22:55)
[2019-06-14] MEDS: Atorvastatin Calcium 20 MG Tablet PO (22:56)
[2019-06-14] MEDS: Latanoprost 0.005% 1 Bottle 1 DRP EACH EYE (22:59)
[2019-06-15] MEDS: Timolol 0.5% 5ML OPTH.BTL 1 DRP EACH EYE ×2 (06:20→18:26)
[2019-06-15] MEDS: LIFITEGRAST 1 EACH DROPERETTE OP ×2 (06:20→18:26)
[2019-06-15] MEDS: Menthol/Lanolin/Calamine/Znox 113 GM Tube 1 APPLIC TOPICAL ×2 (06:20→18:27)
[2019-06-15] MEDS: BRIMONIDINE 0.2% 5ML BOTTLE 1 DRP EACH EYE ×2 (06:21→18:26)
[2019-06-15] MEDS: levETIRAcetam 500 MG Tablet PO ×2 (06:21→18:19)
[2019-06-15] MEDS: Senna/Docusate Sodium 1 Tablet PO ×2 (06:21→18:20)
[2019-06-15] MEDS: SACUBITRIL/VALSARTAN 24/26 MG TABLET 1 EACH PO ×2 (06:21→18:20)
[2019-06-15] MEDS: Ranolazine 500 MG Tablet 1000 MG PO ×2 (06:21→18:20)
[2019-06-15] MEDS: Isosorbide Mononitrate 60 MG Tablet PO (06:21)
[2019-06-15 06:24] VITALS: BP 132/56; PULSE 66
[2019-06-15] MEDS: Metoprolol Tartrate 25 MG Tablet 75 MG PO ×2 (06:24→18:19)
[2019-06-15] MEDS: Furosemide 40 MG Tablet PO ×2 (08:45→18:19)
[2019-06-15 14:11] VITALS: BP 123/54; PULSE 63; RESP 16; TEMP 36.6; O2SAT 100
[2019-06-15 18:19] VITALS: PULSE 63
[2019-06-15] MEDS: Mirtazapine 15 MG Tablet 7.5 MG PO (22:19)
[2019-06-15] MEDS: Atorvastatin Calcium 20 MG Tablet PO (22:19)
[2019-06-15] MEDS: Latanoprost 0.005% 1 Bottle 1 DRP EACH EYE (22:20)
[2019-06-15 22:45] VITALS: PULSE 65; O2SAT 97
[2019-06-16] MEDS: BRIMONIDINE 0.2% 5ML BOTTLE 1 DRP EACH EYE ×2 (06:37→16:54)
[2019-06-16] MEDS: Ranolazine 500 MG Tablet 1000 MG PO ×2 (06:38→17:01)
[2019-06-16] MEDS: LIFITEGRAST 1 EACH DROPERETTE OP ×2 (06:38→16:54)
[2019-06-16] MEDS: Timolol 0.5% 5ML OPTH.BTL 1 DRP EACH EYE ×2 (06:38→16:51)
[2019-06-16] MEDS: SACUBITRIL/VALSARTAN 24/26 MG TABLET 1 EACH PO ×2 (06:38→17:02)
[2019-06-16] MEDS: Senna/Docusate Sodium 1 Tablet PO ×2 (06:38→17:01)
[2019-06-16] MEDS: Isosorbide Mononitrate 60 MG Tablet PO (06:38)
[2019-06-16 06:39] VITALS: BP 134/66; PULSE 70
[2019-06-16] MEDS: Metoprolol Tartrate 25 MG Tablet 75 MG PO ×2 (06:39→17:02)
[2019-06-16] MEDS: levETIRAcetam 500 MG Tablet PO ×2 (06:39→17:01)
[2019-06-16] MEDS: Polyethylene Glycol 3350 17 GM PACKET PO (06:40)
[2019-06-16] MEDS: Menthol/Lanolin/Calamine/Znox 113 GM Tube 1 APPLIC TOPICAL ×2 (06:45→16:59)
[2019-06-16] MEDS: Furosemide 40 MG Tablet PO ×2 (09:50→17:02)
[2019-06-16 14:24] VITALS: BP 116/56; PULSE 63; RESP 16; TEMP 36.3; O2SAT 99
--- NOTE | 2019-06-16 16:20 | CASEMGMT ---
Social Work Insurance issued NRD 06/15 and continued stay is not guaranteed. Will continue to follow. Twila Gutierres, SCHOOL TRAFFIC GUARD MENTAL HEALTH SOCIAL WORKER
[2019-06-16 17:02] VITALS: PULSE 63
[2019-06-16] MEDS: Psyllium 1 PACKET PO (18:17)
[2019-06-16] MEDS: Atorvastatin Calcium 20 MG Tablet PO (21:43)
[2019-06-16] MEDS: Mirtazapine 15 MG Tablet 7.5 MG PO (21:43)
[2019-06-16] MEDS: Latanoprost 0.005% 1 Bottle 1 DRP EACH EYE (21:45)
[2019-06-17] MEDS: Senna/Docusate Sodium 1 Tablet PO ×2 (05:52→17:02)
[2019-06-17] MEDS: Isosorbide Mononitrate 60 MG Tablet PO (05:52)
[2019-06-17] MEDS: levETIRAcetam 500 MG Tablet PO ×2 (05:52→17:01)
[2019-06-17] MEDS: Ranolazine 500 MG Tablet 1000 MG PO ×2 (05:52→17:01)
[2019-06-17] MEDS: LIFITEGRAST 1 EACH DROPERETTE OP ×2 (05:52→17:00)
[2019-06-17] MEDS: BRIMONIDINE 0.2% 5ML BOTTLE 1 DRP EACH EYE ×2 (05:52→17:10)
[2019-06-17] MEDS: Polyethylene Glycol 3350 17 GM PACKET PO (05:52)
[2019-06-17] MEDS: SACUBITRIL/VALSARTAN 24/26 MG TABLET 1 EACH PO ×2 (05:52→17:00)
[2019-06-17 05:53] VITALS: BP 136/67; PULSE 70
[2019-06-17] MEDS: Timolol 0.5% 5ML OPTH.BTL 1 DRP EACH EYE ×2 (05:53→17:04)
[2019-06-17] MEDS: Metoprolol Tartrate 25 MG Tablet 75 MG PO ×2 (05:53→17:08)
[2019-06-17] MEDS: Menthol/Lanolin/Calamine/Znox 113 GM Tube 1 APPLIC TOPICAL ×2 (05:59→17:10)
[2019-06-17] MEDS: Bisacodyl 10 MG Suppository RECTAL (06:30)
[2019-06-17 09:04] VITALS: PULSE 63; RESP 16; O2SAT 98
[2019-06-17] MEDS: Psyllium 1 PACKET PO (10:35)
[2019-06-17] MEDS: Furosemide 40 MG Tablet PO ×2 (10:35→17:01)
[2019-06-17 13:54] VITALS: BP 114/47; PULSE 69; RESP 16; TEMP 36.7; O2SAT 98
[2019-06-17 17:08] VITALS: BP 136/72; PULSE 74
[2019-06-17] MEDS: Mirtazapine 15 MG Tablet 7.5 MG PO (19:38)
[2019-06-17] MEDS: Atorvastatin Calcium 20 MG Tablet PO (19:38)
[2019-06-17] MEDS: Latanoprost 0.005% 1 Bottle 1 DRP EACH EYE (19:39)
[2019-06-18 05:41] LABS: Absolute Lymphocyte Count 1.97 X10^3/uL (0.83-4.51); Absolute Neutrophil Count 4.1 X10^3/uL (2.0-7.7); Basophil# 0.09 X10^3/uL; Basophil% 1.2 % (0-1); Eosinophil# 0.23 X10^3/uL; Eosinophils% 3.1 % (0-5); Lymphocyte # 1.97 X10^3/ul (4.0); Lymphocyte % 26.2 % (19-41); Mean Corp Hgb Conc 30.3 g/dL (32-36); Mean Corpuscular Volume 112.2 fL (81-99); Mean Platelet Vol. 12.4 fl (6.2-12.0); Monocyte# 1.11 X10^3/uL; Monocyte% 14.7 % (0-10); NRBC Flagged by Analyzer 0 % (0-5); Neutrophil # 4.09 X10^3/uL (2.7-7.7); Neutrophil % 54.3 % (47-70); POSITIVE MORPHOLOGY YES; Platelet Count 219 K/mm3 (150-450); RBC Distribution Width CV 16.5 % (11.6-14.6); RBC Distribution Width SD 68.8 fl (35.1-43.9); Red Blood Count 2.94 M/mm3 (4.2-5.4); White Blood Count 7.5 K/mm3 (4.4-11.0)
[2019-06-18 06:01] LABS: Anion Gap 6 (5-15); BUN 43 mg/dL (7-18); BUN/Creat Ratio 19.9 RATIO (10-20); Calcium,Total 8.5 mg/dL (8.5-10.1); Chloride 108 mmol/L (98-107); Creatinine, Serum 2.16 mg/dL (0.55-1.02); EST Glomerular Filtration Rate 23 mL/min (>60); Est Glom Filt Rate - Afr Amer 28 mL/min (>60); Estimated Creatinine Clearance 15.04 ml/min; Glucose 95 mg/dL (74-106); Potassium 4.4 mmol/L (3.5-5.1); Sodium Level 140 mmol/L (136-145)
[2019-06-18 06:12] VITALS: BP 154/72; PULSE 70
[2019-06-18] MEDS: Isosorbide Mononitrate 60 MG Tablet PO (06:12)
[2019-06-18] MEDS: Ranolazine 500 MG Tablet 1000 MG PO ×2 (06:12→18:14)
[2019-06-18] MEDS: BRIMONIDINE 0.2% 5ML BOTTLE 1 DRP EACH EYE ×2 (06:12→18:15)
[2019-06-18] MEDS: SACUBITRIL/VALSARTAN 24/26 MG TABLET 1 EACH PO (06:12)
[2019-06-18] MEDS: Metoprolol Tartrate 25 MG Tablet 75 MG PO ×2 (06:12→18:15)
[2019-06-18] MEDS: Senna/Docusate Sodium 1 Tablet PO ×2 (06:12→18:13)
[2019-06-18] MEDS: levETIRAcetam 500 MG Tablet PO ×2 (06:12→18:15)
[2019-06-18] MEDS: Timolol 0.5% 5ML OPTH.BTL 1 DRP EACH EYE ×2 (06:16→18:09)
[2019-06-18] MEDS: Polyethylene Glycol 3350 17 GM PACKET PO (06:18)
[2019-06-18] MEDS: LIFITEGRAST 1 EACH DROPERETTE OP ×2 (06:26→18:12)
[2019-06-18] MEDS: Menthol/Lanolin/Calamine/Znox 113 GM Tube 1 APPLIC TOPICAL ×2 (06:28→21:00)
[2019-06-18 06:31] LABS: Differential Indicated SCAN CRITERIA MET
--- NOTE | 2019-06-18 06:31 | NURSING ---
Pt hasn't had a bowel movement since 06/11 bowel sound are active in all four quadrant. Pt given routine mirlax and senna with some warm prune juice. Rn made aware.
[2019-06-18 06:49] LABS: Anisocytosis 2+; Macrocytosis 3+
[2019-06-18 06:50] LABS: Hypochromasia 1+
[2019-06-18] MEDS: Furosemide 40 MG Tablet PO ×2 (09:39→18:16)
[2019-06-18 14:29] VITALS: BP 116/52; PULSE 78; RESP 16; TEMP 36.4; O2SAT 96
[2019-06-18 18:15] VITALS: PULSE 68
[2019-06-18] MEDS: Latanoprost 0.005% 1 Bottle 1 DRP EACH EYE (20:54)
[2019-06-18] MEDS: Atorvastatin Calcium 20 MG Tablet PO (20:58)
[2019-06-18] MEDS: Mirtazapine 15 MG Tablet 7.5 MG PO (20:58)
[2019-06-18 21:04] VITALS: PULSE 72; RESP 16; O2SAT 97
--- NOTE | 2019-06-18 23:13 | NURSING ---
Soap neha enema given per doctor order no concerns voiced during this time. Pt had a extra large, soft, non formed bowel movement.
[2019-06-19] MEDS: BRIMONIDINE 0.2% 5ML BOTTLE 1 DRP EACH EYE ×2 (06:33→17:11)
[2019-06-19] MEDS: Timolol 0.5% 5ML OPTH.BTL 1 DRP EACH EYE ×2 (06:39→17:10)
[2019-06-19] MEDS: LIFITEGRAST 1 EACH DROPERETTE OP ×2 (06:43→17:10)
[2019-06-19] MEDS: SACUBITRIL/VALSARTAN 49-51 MG TABLET 1 EACH PO ×2 (06:45→17:13)
[2019-06-19 06:46] VITALS: BP 150/69; PULSE 70
[2019-06-19] MEDS: Senna/Docusate Sodium 1 Tablet PO ×2 (06:46→17:13)
[2019-06-19] MEDS: Ranolazine 500 MG Tablet 1000 MG PO ×2 (06:46→17:14)
[2019-06-19] MEDS: levETIRAcetam 500 MG Tablet PO ×2 (06:46→17:14)
[2019-06-19] MEDS: Metoprolol Tartrate 25 MG Tablet 75 MG PO ×2 (06:46→17:14)
[2019-06-19] MEDS: Isosorbide Mononitrate 60 MG Tablet PO (06:48)
[2019-06-19] MEDS: Menthol/Lanolin/Calamine/Znox 113 GM Tube 1 APPLIC TOPICAL ×2 (06:49→17:16)
[2019-06-19] MEDS: Furosemide 40 MG Tablet PO ×2 (09:12→17:14)
--- NOTE | 2019-06-19 12:52 | CASEMGMT ---
Social Work Insurance issued LCD 06/20, DC 06/21. Left message with daughter. Spoke with patient whom is still concerned with DCing home, but does have a lot of family support. Will continue to follow. HUSSEIN ObregonW
[2019-06-19 14:31] VITALS: BP 138/65; PULSE 70; RESP 16; TEMP 36.7; O2SAT 99
[2019-06-19 17:14] VITALS: PULSE 70
[2019-06-19] MEDS: Mirtazapine 15 MG Tablet 7.5 MG PO (20:57)
[2019-06-19] MEDS: Latanoprost 0.005% 1 Bottle 1 DRP EACH EYE (20:58)
[2019-06-19] MEDS: Atorvastatin Calcium 20 MG Tablet PO (20:58)
[2019-06-20] MEDS: BRIMONIDINE 0.2% 5ML BOTTLE 1 DRP EACH EYE ×2 (05:57→18:42)
[2019-06-20] MEDS: Menthol/Lanolin/Calamine/Znox 113 GM Tube 1 APPLIC TOPICAL ×2 (05:58→18:46)
[2019-06-20] MEDS: Timolol 0.5% 5ML OPTH.BTL 1 DRP EACH EYE ×2 (05:59→18:44)
[2019-06-20] MEDS: LIFITEGRAST 1 EACH DROPERETTE OP ×2 (06:00→18:45)
[2019-06-20] MEDS: Senna/Docusate Sodium 1 Tablet PO ×2 (06:00→18:44)
[2019-06-20] MEDS: Isosorbide Mononitrate 60 MG Tablet PO (06:01)
[2019-06-20] MEDS: SACUBITRIL/VALSARTAN 49-51 MG TABLET 1 EACH PO ×2 (06:01→18:42)
[2019-06-20] MEDS: levETIRAcetam 500 MG Tablet PO ×2 (06:01→18:42)
[2019-06-20] MEDS: Ranolazine 500 MG Tablet 1000 MG PO ×2 (06:01→18:43)
[2019-06-20 06:03] VITALS: BP 146/66; PULSE 74
[2019-06-20] MEDS: Metoprolol Tartrate 25 MG Tablet 75 MG PO ×2 (06:03→18:42)
[2019-06-20] MEDS: Furosemide 40 MG Tablet PO ×2 (09:18→18:42)
--- NOTE | 2019-06-20 09:26 | CASEMGMT ---
Social Work BIMS and PHQ-9 completed for MDS assessment. Twila Gutierres, BROWNFIELD REDEVELOPMENT SPECIALIST CEMENT CAR DUMPER
[2019-06-20 09:30] VITALS: PULSE 72; RESP 16; O2SAT 95
--- NOTE | 2019-06-20 09:43 | CASEMGMT ---
Social Work Patient and dtr have decided to appeal. Appeal rights and financial liability explained - dtr understood. Will continue to follow. Twila Gutierres, ENVIRONMENTAL MONITORING SPECIALIST DUSTER TENDER
[2019-06-20 18:42] VITALS: BP 146/66; PULSE 74
[2019-06-20] MEDS: Mirtazapine 15 MG Tablet 7.5 MG PO (21:29)
[2019-06-20] MEDS: Atorvastatin Calcium 20 MG Tablet PO (21:30)
[2019-06-20] MEDS: Latanoprost 0.005% 1 Bottle 1 DRP EACH EYE (21:33)
[2019-06-21] MEDS: Isosorbide Mononitrate 60 MG Tablet PO (05:46)
[2019-06-21] MEDS: levETIRAcetam 500 MG Tablet PO ×2 (05:46→18:22)
[2019-06-21] MEDS: SACUBITRIL/VALSARTAN 49-51 MG TABLET 1 EACH PO ×2 (05:46→18:21)
[2019-06-21] MEDS: Ranolazine 500 MG Tablet 1000 MG PO ×2 (05:47→18:22)
[2019-06-21] MEDS: Senna/Docusate Sodium 1 Tablet PO ×2 (05:47→18:23)
[2019-06-21 05:51] VITALS: BP 146/63; PULSE 76
[2019-06-21] MEDS: Metoprolol Tartrate 25 MG Tablet 75 MG PO ×2 (05:51→18:27)
[2019-06-21] MEDS: Menthol/Lanolin/Calamine/Znox 113 GM Tube 1 APPLIC TOPICAL ×2 (05:54→18:33)
[2019-06-21] MEDS: BRIMONIDINE 0.2% 5ML BOTTLE 1 DRP EACH EYE ×2 (05:56→18:21)
[2019-06-21] MEDS: Timolol 0.5% 5ML OPTH.BTL 1 DRP EACH EYE ×2 (06:05→18:21)
[2019-06-21] MEDS: LIFITEGRAST 1 EACH DROPERETTE OP ×2 (06:12→18:50)
[2019-06-21 10:00] VITALS: PULSE 74; RESP 16; O2SAT 96
[2019-06-21] MEDS: Furosemide 40 MG Tablet PO ×2 (10:52→18:22)
[2019-06-21 13:40] VITALS: BP 107/50; PULSE 71; RESP 16; TEMP 36.6; O2SAT 100
--- NOTE | 2019-06-21 14:32 | NURSING ---
Received call from Medicare appeals, spoke with Jani. The appeal was denied, last covered day will be 06/21/19. Jani stated that family is aware of this.
--- NOTE | 2019-06-21 16:23 | CASEMGMT ---
SOCIAL WORK PATIENT'S APPEAL WAS DENIED. CALL TO PATIENT'S DAUGHTERCORBIN TO DISCUSS DISCHARGE PLANS. DAUGHTER STATES HAS LEFT DECISION UP TO PATIENT TO EITHER DISCHARGE HOME TOMORROW WITH HOME HEALTH OR PRIVATELY PAY. DAUGHTER STATES GIVING PATIENT TIME TO DECIDE AND WILL DISCUSS WITH HER AGAIN LATER TODAY. DAUGHTER STATES WILL CALL THIS WORKER BACK ONCE DECISION HAS BEEN MADE. INFORMED DAUGHTER, KITTY PARTITION ASSEMBLY MACHINE OPERATOR CAN FOLLOW UP ON SUNDAY WITH HOME HEALTH. Jeff MCCARTHY MSW, LOCAL INTERMODAL TRUCK DRIVER.
[2019-06-21 18:27] VITALS: BP 107/60; PULSE 70
[2019-06-21] MEDS: Latanoprost 0.005% 1 Bottle 1 DRP EACH EYE (20:58)
[2019-06-21] MEDS: Atorvastatin Calcium 20 MG Tablet PO (20:58)
[2019-06-21] MEDS: Mirtazapine 15 MG Tablet 7.5 MG PO (20:59)
--- NOTE | 2019-06-21 21:35 | CASEMGMT ---
SOCIAL WORK RECEIVED CALL BACK FROM PATIENT'S DAUGHTER THIS EVENING. PATIENT WANTING TO STAY 3 MORE DAYS. AFTER DISCUSSING PRIVATE PAY COST, DAUGHTER SPOKE WITH PATIENT AND PLAN IS FOR DISCHARGE HOME TOMORROW. DAUGHTER INQUIRING ABOUT TIME IN THE MORNING FOR DISCHARGE. THIS WORKER SPOKE WITH STAFF, PATIENT ABLE TO DISCHARGE AFTER 10AM. DAUGHTER UPDATED. PLAN: DISCHARGE HOME TOMORROW. SW TO FOLLOW UP ON SUNDAY FOR HOME HEALTH CARE. Jeff MCCARTHY MSW, VOCATIONAL ADVISER.
[2019-06-22] MEDS: BRIMONIDINE 0.2% 5ML BOTTLE 1 DRP EACH EYE (05:51)
[2019-06-22] MEDS: Menthol/Lanolin/Calamine/Znox 113 GM Tube 1 APPLIC TOPICAL (05:54)
[2019-06-22] MEDS: Timolol 0.5% 5ML OPTH.BTL 1 DRP EACH EYE (05:55)
[2019-06-22 05:56] VITALS: BP 117/55; PULSE 76
[2019-06-22] MEDS: Senna/Docusate Sodium 1 Tablet PO (05:56)
[2019-06-22] MEDS: Metoprolol Tartrate 25 MG Tablet 75 MG PO (05:56)
[2019-06-22] MEDS: SACUBITRIL/VALSARTAN 49-51 MG TABLET 1 EACH PO (05:56)
[2019-06-22] MEDS: Isosorbide Mononitrate 60 MG Tablet PO (05:56)
[2019-06-22] MEDS: Ranolazine 500 MG Tablet 1000 MG PO (05:56)
[2019-06-22] MEDS: levETIRAcetam 500 MG Tablet PO (05:56)
[2019-06-22] MEDS: LIFITEGRAST 1 EACH DROPERETTE OP (05:59)
[2019-06-22 09:51] VITALS: PULSE 75; RESP 16; O2SAT 97
[2019-06-22] MEDS: Furosemide 40 MG Tablet PO (10:08)
--- NOTE | 2019-06-23 10:42 | CASEMGMT ---
Social Work Spoke with patient's dtr to confirm pt choice for [facility] - referral made for PT/OT/ST/SN/SLUNK SKIN CURER. Twila Gutierres, REFERRAL MANAGER FINANCE BROKER
== END 2019-06-22 10:20 | disposition home health service (06) | DRG 101 ==
PROVIDERS: Admitting Provider Family Medicine Geriatric Medicine; PCP Family Medicine; Visit Provider Family Medicine Geriatric Medicine
DX: G40.909 Epilepsy, unspecified, not intractable, without status epilepticus (principal); I50.42 Chronic combined systolic (congestive) and diastolic (congestive) heart failure; I13.0 Hypertensive heart and chronic kidney disease with heart failure and stage 1 through stage 4 chronic kidney disease, or unspecified chronic kidney disease; I45.2 Bifascicular block; G93.40 Encephalopathy, unspecified; I25.10 Atherosclerotic heart disease of native coronary artery without angina pectoris; F32.9 Major depressive disorder, single episode, unspecified; E78.5 Hyperlipidemia, unspecified; N18.3 Chronic kidney disease, stage 3 (moderate); E87.6 Hypokalemia; D50.9 Iron deficiency anemia, unspecified; I25.2 Old myocardial infarction; M06.9 Rheumatoid arthritis, unspecified; H40.9 Unspecified glaucoma; R29.6 Repeated falls; Z87.01 Personal history of pneumonia (recurrent)
CPT/HCPCS: 36415; 76000; 80048; 81001; 85025; 87086; 92507; 92526; 92610; 93970; 97110; 97116; 97162; 97166; 97530; 97535; 97802; A4216

== ENCOUNTER → 2019-06-25 08:38 | Outpatient (CLI) | payer MEDICARE, SELFPAY ==
[2019-06-03 13:24] VITALS: BMI 18.5
--- NOTE | 2019-06-25 08:40 | VDLE_ITS ---
Reason For Study: PAIN RIGHT LEFT CFV is compressible, spontaneous, competent CFV is compressible, spontaneous, competent, and demonstrates pulsatile venous flow. and demonstrates pulsatile venous flow. FV is compressible, spontaneous, competent FV is compressible, spontaneous, competent and demonstrates pulsatile venous flow. and demonstrates pulsatile venous flow. POP V is compressible, spontaneous, competent POP V is compressible, spontaneous, phasic, and demonstrates pulsatile venous flow. competent and demonstrates normal T/P Trunk is compressible. augmentation. PTV is compressible. T/P Trunk is compressible. RT PerV is compressible. PTV is compressible. SFJ is competent and measures .5 X .6 cm. LT PerV is compressible. GSV at knee measures .4 X .4 cm. SFJ is competent and measures .6 X .75 cm. GSV above knee is competent. GSV above knee is competent. GSV below knee is INCOMPETENT for greater GSV at knee measures .4 X .4 cm. than 0.5 seconds. GSV below knee is INCOMPETENT for greater SSV at junction is competent and measures .2 than 0.5 seconds. X .2 cm. SSV at junction is competent and measures .2 Procedure X .2 cm. Exam performed in department. A preliminary report was called and/or faxed to DR ARELLANO. Interpretation Summary Bilateral no DVT. Right deep system with pulsatile flow and further evaluation as warranted. Bilateral below knee GSv reflux. Ordering Physician: Tom Arellano Referring Physician: JODIE VIDALES Performed By: Lenore Gee, [place], RVT
[2019-06-25 16:34] LABS: Absolute Lymphocyte Count 1.98 X10^3/uL (0.83-4.51); Absolute Neutrophil Count 4.9 X10^3/uL (2.0-7.7); Basophil# 0.07 X10^3/uL; Basophil% 0.8 % (0-1); Eosinophil# 0.28 X10^3/uL; Eosinophils% 3.3 % (0-5); Hematocrit 33.8 % (37-47); Hemoglobin 10.4 g/dL (12.0-15.0); Lymphocyte # 1.98 X10^3/ul (4.0); Lymphocyte % 23.6 % (19-41); Mean Corp Hgb Conc 30.8 g/dL (32-36); Mean Corpuscular Hgb 34.8 pg (27.0-32.0); Mean Platelet Vol. 11.8 fl (6.2-12.0); Monocyte# 1.13 X10^3/uL; Monocyte% 13.5 % (0-10); NRBC Flagged by Analyzer 0 % (0-5); Neutrophil # 4.87 X10^3/uL (2.7-7.7); Neutrophil % 58.2 % (47-70); Platelet Count 305 K/mm3 (150-450); RBC Distribution Width CV 15.1 % (11.6-14.6); RBC Distribution Width SD 64.3 fl (35.1-43.9); Red Blood Count 2.99 M/mm3 (4.2-5.4); White Blood Count 8.4 K/mm3 (4.4-11.0)
[2019-06-25 17:10] LABS: ALB/GLOB Ratio 0.5 RATIO (0.9-2.4); AST(SGOT) 33 U/L (15-37); Alanine Aminotransfer ALT/SGPT 23 U/L (13-56); Albumin, Serum 2.4 g/dL (3.2-5.0); Alkaline Phosphatase 133 U/L (45-117); Anion Gap 5 (5-15); BUN 42 mg/dL (7-18); BUN/Creat Ratio 21.6 RATIO (10-20); Calcium,Total 9.1 mg/dL (8.5-10.1); Chloride 109 mmol/L (98-107); Creatinine, Serum 1.94 mg/dL (0.55-1.02); EST Glomerular Filtration Rate 26 mL/min (>60); Est Glom Filt Rate - Afr Amer 32 mL/min (>60); Globulin 4.6 g/dL (2.2-4.2); Glucose 101 mg/dL (74-106); Potassium 4.7 mmol/L (3.5-5.1); Sodium Level 141 mmol/L (136-145); Thyroid Stim Hormone (TSH) 3.12 uIU/mL (0.358-3.74)
== END ==
LOC: CVS 15:50 → MEDOUTP 16:10
PROVIDERS: PCP Family Medicine Geriatric Medicine; Referring Provider Surgery Vascular Surgery; Visit Provider Surgery Vascular Surgery
DX: M79.604 Pain in right leg (principal); I83.891 Varicose veins of right lower extremity with other complications; I83.892 Varicose veins of left lower extremity with other complications; I70.222 Atherosclerosis of native arteries of extremities with rest pain, left leg; I10 Essential (primary) hypertension; Z86.718 Personal history of other venous thrombosis and embolism
CPT/HCPCS: 36592; 80053; 84443; 85025; 93970; A4216

== ENCOUNTER → 2019-07-10 09:19 | Outpatient (CLI) | payer MEDICARE, SELFPAY ==
[2019-07-04 13:07] VITALS: BMI 16.1
[2019-07-10 09:36] LABS: Absolute Lymphocyte Count 1.65 X10^3/uL (0.83-4.51); Basophil# 0.05 X10^3/uL; Basophil% 0.5 % (0-1); Differential Indicated SCAN CRITERIA MET; Eosinophils% 1.9 % (0-5); Hematocrit 33.9 % (37-47); Hemoglobin 10.2 g/dL (12.0-15.0); Lymphocyte # 1.65 X10^3/ul (4.0); Lymphocyte % 15.8 % (19-41); Mean Corp Hgb Conc 30.1 g/dL (32-36); Mean Corpuscular Hgb 34.8 pg (27.0-32.0); Mean Corpuscular Volume 115.7 fL (81-99); Mean Platelet Vol. 11.8 fl (6.2-12.0); Monocyte# 1.45 X10^3/uL; Monocyte% 13.8 % (0-10); NRBC Flagged by Analyzer 0.8 % (0-5); Neutrophil # 7.03 X10^3/uL (2.7-7.7); Neutrophil % 67.1 % (47-70); POSITIVE MORPHOLOGY YES; Platelet Count 286 K/mm3 (150-450); RBC Distribution Width CV 16.8 % (11.6-14.6); RBC Distribution Width SD 67.7 fl (35.1-43.9); Red Blood Count 2.93 M/mm3 (4.2-5.4); White Blood Count 10.5 K/mm3 (4.4-11.0)
[2019-07-10 09:56] LABS: Anisocytosis 1+; Hypochromasia 1+; Macrocytosis 1+; Platelet Estimate ADEQUATE (ADEQ); Polychromasia 1+
[2019-07-10 09:57] LABS: Anion Gap 7 (5-15); BUN 66 mg/dL (7-18); BUN/Creat Ratio 26.5 RATIO (10-20); Calcium,Total 9.2 mg/dL (8.5-10.1); Chloride 107 mmol/L (98-107); Creatinine, Serum 2.49 mg/dL (0.55-1.02); EST Glomerular Filtration Rate 20 mL/min (>60); Est Glom Filt Rate - Afr Amer 24 mL/min (>60); Glucose 102 mg/dL (74-106); Potassium 5.4 mmol/L (3.5-5.1); Sodium Level 140 mmol/L (136-145)
== END ==
PROVIDERS: PCP Family Medicine Geriatric Medicine; Visit Provider Family Medicine Geriatric Medicine
DX: N17.9 Acute kidney failure, unspecified (principal); N39.0 Urinary tract infection, site not specified
CPT/HCPCS: 36415; 80048; 85025; 87086; 87088

== ENCOUNTER → 2019-07-11 15:30 | Outpatient (CLI) | payer MEDICARE, SELFPAY ==
[2019-07-04 13:07] VITALS: BMI 16.1
[2019-07-11 16:42] LABS: Anion Gap 8 (5-15); BUN 66 mg/dL (7-18); BUN/Creat Ratio 25.9 RATIO (10-20); Calcium,Total 9.2 mg/dL (8.5-10.1); Chloride 109 mmol/L (98-107); Creatinine, Serum 2.55 mg/dL (0.55-1.02); EST Glomerular Filtration Rate 19 mL/min (>60); Est Glom Filt Rate - Afr Amer 23 mL/min (>60); Glucose 104 mg/dL (74-106); Potassium 4.6 mmol/L (3.5-5.1); Sodium Level 143 mmol/L (136-145)
== END ==
PROVIDERS: PCP Family Medicine Geriatric Medicine; Referring Provider Family Medicine Geriatric Medicine; Visit Provider Family Medicine Geriatric Medicine
DX: E87.5 Hyperkalemia (principal)
CPT/HCPCS: 36415; 80048

== ENCOUNTER → 2019-07-23 14:09 | Outpatient (CLI) | payer MEDICARE, SELFPAY ==
[2019-07-04 13:07] VITALS: BMI 16.1
[2019-07-23 15:43] LABS: Anion Gap 7 (5-15); BUN 57 mg/dL (7-18); BUN/Creat Ratio 24.9 RATIO (10-20); Calcium,Total 9.5 mg/dL (8.5-10.1); Chloride 110 mmol/L (98-107); Creatinine, Serum 2.29 mg/dL (0.55-1.02); EST Glomerular Filtration Rate 22 mL/min (>60); Est Glom Filt Rate - Afr Amer 26 mL/min (>60); Glucose 107 mg/dL (74-106); Potassium 5.2 mmol/L (3.5-5.1); Sodium Level 140 mmol/L (136-145)
== END ==
PROVIDERS: PCP Family Medicine Geriatric Medicine; Referring Provider Family Medicine Geriatric Medicine; Visit Provider Family Medicine Geriatric Medicine
DX: E87.5 Hyperkalemia (principal)
CPT/HCPCS: 36415; 80048

== ENCOUNTER 2019-07-31 14:28 | Inpatient (IN) | payer MEDICARE, SELFPAY ==
[2019-07-04 13:07] VITALS: BMI 16.1
[2019-07-31] VITALS (7 sets, daily range): BP systolic 137–147; BP diastolic 76–84; PULSE 75–94; RESP 16–17; TEMP 36.4–37; O2SAT 96–97; BMI 19.2; BMI 19.7; BMI 19.8
--- NOTE | 2019-07-31 14:50 | CT_ITS ---
STUDY: CT ABDOMEN AND PELVIS WITHOUT CONTRAST REASON FOR EXAM: Female, 79 years old. CONSTIPATED, ABD PAIN, HX-SJOGRENS, HTN, CAD WITH STENTS, CHF, CKD STAGE 3, BILAT THR RADIATION DOSAGE (If Supplied By Facility): CTDIvol = ( 9.13 ) mGy, DLP = ( 469.9 ) mGycm TECHNIQUE: Transaxial images were obtained from the dome of the diaphragm to the symphysis pubis without oral contrast, and without intravenous contrast. Sagittal and coronal images were reconstructed. Individualized dose optimization techniques were used for this CT. COMPARISON: Prior abdomen and pelvic CT exam of February 16, 2017. FINDINGS: Bilateral large dependent pleural effusions with compressive atelectasis and/or concomitant parenchymal infiltrates which are more advanced in the right lower and right middle lobes. Extensive coronary calcifications and stent artifacts. Distended inferior vena cava and hepatic veins. Otherwise normal liver. Normal gallbladder and extrahepatic biliary system. Normal spleen. Pancreatic atrophy. Normal bilateral adrenal glands. Mild renal atrophy bilaterally. Bilateral nonobstructing calcifications some of which are vascular. Others are potential 2 to 4 mm nonobstructing renal stones. Negative for hydronephrosis or ureteral stones. Limited visualization of the distal ureter secondary to artifact from bilateral total hip arthroplasty hardware. Nondistended stomach. Nondistended small bowel. Substantial stool in the right colon and in the transverse colon with a stool-filled redundant loop of mid transverse colon extending into the anterior pelvis stool-filled colon to the level of the splenic flexure. Thereafter the colon is essentially nondistended and does not contain substantial stool. There is non-visualization of the appendix. There is diffuse atherosclerotic calcification of the abdominal aorta, without a demonstrated aneurysm. Distended inferior vena cava. Normal retroperitoneum. Nondistended urinary bladder. Negative for pelvic mass. Mild free fluid of the pelvis. Generalized anasarca. There are diffuse degenerative changes of the visualized lumbar spine. Demineralized osseous structures. Old compression deformity of T11. Healing superior endplate compression deformity of L3. Mild levoscoliosis. Status post bilateral total hip arthroplasty. Fracture of the left inferior pubic and left superior pubic ramus at the symphysis and a vertical left sacral fracture which appear to be relatively new and healing. Old fractures of the right superior pubic ramus and inferior pubic ramus were present on prior exam of 2017. CT/Abdomen/Pelvis without Cont IMPRESSION: Bilateral large dependent pleural effusions with compressive atelectasis and/or concomitant parenchymal infiltrates more advanced on the right than left. Distended inferior vena cava and hepatic veins. Generalized anasarca. Small amount of pelvic free fluid/ascites. Stable pancreatic atrophy. Mild bilateral renal atrophy. Nonobstructing renal stones and vascular calcifications without hydronephrosis or ureteral stones. Limited visualization of the bladder and ureter secondary to bilateral total hip hardware. Substantial solid stool in the colon from the right colon to the splenic flexure with a stool-filled loop of transverse colon extending into the pelvis. Nondistended left and distal colon. Potential high impaction. Nonvisualized appendix. Negative for pelvic mass. Recent healing fracture of the left inferior pubic ramus, left superior pubic ramus and a vertical left sacral fracture. Old fractures of the right superior and inferior pubic rami present on prior exam of 2017. Subacute mild superior endplate compression deformity of L3 probably a relatively recent healing fracture. Definitely not present on prior exam of 2017. Electronically Signed: Terri Callahan MD at 18:10 EDT , Service support ,
[2019-07-31 15:19] LABS: Absolute Lymphocyte Count 1.31 X10^3/uL (0.83-4.51); Basophil# 0.03 X10^3/uL; Basophil% 0.2 % (0-1); Eosinophil# 0.01 X10^3/uL; Eosinophils% 0.1 % (0-5); Hematocrit 38.3 % (37-47); Hemoglobin 11.9 g/dL (12.0-15.0); Lymphocyte # 1.31 X10^3/ul (4.0); Lymphocyte % 8.2 % (19-41); Mean Corp Hgb Conc 31.1 g/dL (32-36); Mean Corpuscular Volume 109.4 fL (81-99); Mean Platelet Vol. 12.2 fl (6.2-12.0); Monocyte# 1.62 X10^3/uL; Monocyte% 10.1 % (0-10); NRBC Flagged by Analyzer 0 % (0-5); Neutrophil # 12.95 X10^3/uL (2.7-7.7); Neutrophil % 80.9 % (47-70); POSITIVE DIFFERENTIAL YES; POSITIVE MORPHOLOGY YES; Platelet Count 244 K/mm3 (150-450); RBC Distribution Width CV 16.9 % (11.6-14.6)
[2019-07-31 15:20] LABS: Differential Indicated SCAN CRITERIA MET
[2019-07-31 15:37] LABS: ALB/GLOB Ratio 0.5 RATIO (0.9-2.4); AST(SGOT) 39 U/L (15-37); Alanine Aminotransfer ALT/SGPT 27 U/L (13-56); Albumin, Serum 2.4 g/dL (3.2-5.0); Alkaline Phosphatase 155 U/L (45-117); Anion Gap 9 (5-15); BUN 53 mg/dL (7-18); BUN/Creat Ratio 23.6 RATIO (10-20); Calcium,Total 9.3 mg/dL (8.5-10.1); Chloride 107 mmol/L (98-107); Creatinine, Serum 2.25 mg/dL (0.55-1.02); EST Glomerular Filtration Rate 22 mL/min (>60); Est Glom Filt Rate - Afr Amer 27 mL/min (>60); Estimated Creatinine Clearance 15.99 ml/min; Globulin 4.8 g/dL (2.2-4.2); Glucose 125 mg/dL (74-106); Lipase 228 U/L (73-393); Potassium 4.5 mmol/L (3.5-5.1); Protein, Total 7.2 g/dL (6.4-8.2); Sodium Level 140 mmol/L (136-145)
[2019-07-31] MEDS: 0.9% Normal Saline 1,000 ML 125 ML IV (15:49)
[2019-07-31 15:56] LABS: Anisocytosis 1+; Hypochromasia RARE; Macrocytosis 1+; Platelet Estimate ADEQUATE (ADEQ)
--- NOTE | 2019-07-31 16:04 | ED.VIS.GEN ---
History of Present Illness Chief Complaint: Constipation Detail of Chief Complaint: weakness, constipation Informant: Patient Onset: Weeks - 3-4 Context: Gradual Onset Timing: Continuous Narrative: Patient presenting with generalized weakness that is been progressive and gradual over the last several weeks to the point where she is having difficulty getting up and around right now. She lives alone. She is DNR [facility] arrest. Nursing spoke with daughter who is concerned, does not live with her, and states that she is to the point of needing assisted living if she has no acute reason to be admitted to the hospital. The patient agrees that she is in need of help with care and is having significant trouble with ADLs. She has been constipated for 3 to 4 weeks, her doctor prescribed her GoLYTELY a week or so ago, this resulted in a good bowel movement but she really has had nothing since. She is having some periumbilical/diffuse abdominal discomfort. She denies any vomiting or fevers. She has a chronic cough that is no different and nonproductive. She has conversational dyspnea that is chronic and no worse than usual. - Past Medical History (1) Acute on chronic systolic and diastolic heart failure, NYHA class 4 Status: Chronic (2) Aspiration pneumonia Status: Suspected (3) Debility Status: Chronic (4) Dysphagia Status: Chronic (5) Dyspnea Status: Chronic (6) Seizure disorder Status: Chronic (7) Claustrophobia Status: Chronic (8) Coronary artery disease Status: Chronic (9) Essential (primary) hypertension Status: Chronic (10) Glaucoma Status: Chronic (11) Hyperlipemia Status: Chronic (12) Hypertension Status: Chronic (13) Iron deficiency anemia Status: Chronic (14) Lower extremity edema Status: Chronic (15) 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 (16) History of coronary artery stent placement Status: Resolved Comment: PCI-NIGHAT-RCA w/ 2.5 x 28 mm Promus Stent x 2, NIGHAT-Ramus w/ 2.25 x 20 Taxus Stent 05/21/2009 Past Medical History - Allergies and Home Meds Allergies/Adverse Reactions: Allergies adalimumab [From Humira] Allergy (Verified 07/31/19 14:32) Rash ciprofloxacin HCl [From Cipro] Allergy (Verified 07/31/19 14:32) Unknown clavulanic acid Allergy (Verified 07/31/19 14:32) PT UNSURE OF REACTION doxazosin Allergy (Verified 07/31/19 14:32) Other hydroxyzine [From Vistaril] Allergy (Verified 07/31/19 14:32) Other latex Allergy (Verified 07/31/19 14:32) Rash levofloxacin [From Levaquin] Allergy (Verified 07/31/19 14:32) Unknown lisinopril Allergy (Verified 07/31/19 14:32) Other COUGH Methotrexate Analogues Allergy (Verified 07/31/19 14:32) Hives naproxen Allergy (Verified 07/31/19 14:32) Unknown potassium clavulanate [From Augmentin] Allergy (Verified 07/31/19 14:32) Unknown Sulfa (Sulfonamide Antibiotics) Allergy (Verified 07/31/19 14:32) Unknown amlodipine Adverse Reaction (Severe, Verified 07/31/19 14:32) edema haloperidol lactate [From Haldol] Adverse Reaction (Unknown, Verified 07/31/19 14:32) agitation amoxicillin trihydrate [From Augmentin] Adverse Reaction (Verified 07/31/19 14:32) Upset Stomach hydromorphone HCl [From Dilaudid] Adverse Reaction (Verified 07/31/19 14:32) Other HALLUCINATIONS hydroxychloroquine sulfate [From Plaquenil] Adverse Reaction (Verified 07/31/19 14:32) Other VISION ISSUES Primary Care Physician: Ted Georges Chi, MD [Primary Care Provider] - Surgical History: angioplasty, total hip arthroplasty - Bilateral, - - Carpal tunnel surgery. Lives: Alone Smoking Status: Never smoker - Family History Paternal Family History: Family History (Last Reviewed 07/04/19 @ 13:[address] Nahid Hernandez MD) Father No problems noted. Family History: Reports: Heart Disease Maternal Family History: Family History (Last Reviewed 07/04/19 @ 13:[address] Nahid Hernandez MD) Father No problems noted. Family History: Reports: Cancer - Mother with history of breast cancer. Review of Systems General: Reports: Malaise. Denies: Chills, Fever, Sweats Eyes: Denies: Visual changes - bilaterally, Diplopia ENT: Denies: Bilateral ear pain, Rhinorrhea, Sore throat Cardiovascular: Denies: Chest pain, Palpitations Respiratory: Reports: Dyspnea, Cough, Dyspnea on exertion. Denies: Sputum, Orthopnea Gastrointestinal: Reports: Abdominal pain, Constipation. Denies: Nausea, Vomiting, Diarrhea, Melena, Hematochezia Genitourinary: Denies: Dysuria, Hematuria, Frequency Musculoskeletal: Reports: Swelling. Denies: Neck pain, Back pain, Extremity Pain Skin: Denies: Rash, Wounds Neurological: Denies: Headache, Weakness, Numbness Physical Exam Vital Signs/Narrative: Vital Signs Temp Pulse Resp BP Pulse Ox 07/31/19 15:51 17 07/31/19 14:32 98.6 F 87 17 145/76 H 96 Inital Vital Signs reviewed: Yes General: Well nourished, Well developed, Cachectic, No Acute Distress Head: Normocephalic, Atraumatic Eyes: Perrl, EOMI ENT: Moist mucous membranes, No rhinorrhea, TM's clear. Negative for: Sinus tenderness Neck: Supple, Nontender, No lymphadenopathy, No JVD Cardiovascular: Regular rate, Regular rhythm, Murmur - soft systolic Respiratory: No distress, CTA bilaterally, Chest nontender Abdomen: Soft, Nondistended, Normal bowel sounds, Tender - Epigastric, right upper quadrant, right lower quadrant, periumbilical.. Negative for: Guarding, Rebound tenderness, Pulsatile mass Back: Nontender, Normal Inspection. Negative for: CVA tenderness Extremities: Nontender, Edema - BLE, symmetric, w/ comp stockings on. Negative for: Calf Tenderness Skin: Normal color, No rash, No Trauma Neurological: Alert, Oriented x3, Cranial nerves II-XII grossly intact, Normal Strength, Normal Sensation Psychological: Normal affect, Normal Mood Diagnostic/Tx/Re-eval Impressions Abdomen/Pelvis CT 07/31/19 14:50 IMPRESSION: Bilateral large dependent pleural effusions with compressive atelectasis and/or concomitant parenchymal infiltrates more advanced on the right than left. Distended inferior vena cava and hepatic veins. Generalized anasarca. Small amount of pelvic free fluid/ascites. Stable pancreatic atrophy. Mild bilateral renal atrophy. Nonobstructing renal stones and vascular calcifications without hydronephrosis or ureteral stones. Limited visualization of the bladder and ureter secondary to bilateral total hip hardware. Substantial solid stool in the colon from the right colon to the splenic flexure with a stool-filled loop of transverse colon extending into the pelvis. Nondistended left and distal colon. Potential high impaction. Nonvisualized appendix. Negative for pelvic mass. Recent healing fracture of the left inferior pubic ramus, left superior pubic ramus and a vertical left sacral fracture. Old fractures of the right superior and inferior pubic rami present on prior exam of 2016. Subacute mild superior endplate compression deformity of L3 probably a relatively recent healing fracture. Definitely not present on prior exam of 2016. Electronically Signed: Terri Callahan MD at 18:10 EDT , Service support , Chest X-Ray 07/31/19 17:20 IMPRESSION: Persistent bilateral large pleural effusions with bibasilar compressive atelectasis and/or concomitant infiltrates appearing increased from prior chest exam of May 31, 2019. Port-A-Cath terminates in the right atrium. Electronically Signed: Terri Callahan MD at 17:38 EDT , Service support , 07/31/19 14:50 Abdomen/Pelvis without Cont [CT] Stat 07/31/19 17:20 Chest 1 View (Portable) [RAD] Stat Laboratory Results 07/31/19 07/31/19 07/31/19 15:15 15:15 16:15 WBC 16.0 H RBC 3.50 L Hgb 11.9 L Hct 38.3 MCV 109.4 H MCH 34.0 H MCHC 31.1 L RDW Std Deviation 68.0 H RDW Coeff of Myke 16.9 H Plt Count 244 MPV 12.2 H Immature Gran % (Auto) 0.500 Neut % (Auto) 80.9 H Lymph % (Auto) 8.2 L Butler % (Auto) 10.1 H Eos % (Auto) 0.1 Baso % (Auto) 0.2 Absolute Neuts (auto) 13.0 H Absolute Lymphs (auto) 1.31 Nucleated RBC % 0 Diff Path Review May foll Platelet Estimate ADEQUATE Hypochromasia RARE Anisocytosis 1+ Macrocytosis 1+ Sodium 140 Potassium 4.5 Chloride 107 Carbon Dioxide 24.0 Anion Gap 9 BUN 53 H Creatinine 2.25 H Estim Creat Clear Calc 15.99 Est GFR (MDRD) Af Amer 27 L Est GFR (MDRD) Non-Af 22 L BUN/Creatinine Ratio 23.6 H Glucose 125 H Calcium 9.3 Total Bilirubin 0.80 AST 39 H ALT 27 Alkaline Phosphatase 155 H Troponin I 0.112 H Total Protein 7.2 Albumin 2.4 L Globulin 4.8 H Albumin/Globulin Ratio 0.5 L Lipase 228 Urine Color Yellow Urine Clarity Sl. Cloudy Urine pH 5.0 Ur Specific [place] 1.015 Urine Protein 100 H Urine Glucose (UA) Normal Urine Ketones Negative Urine Occult Blood Negative Urine Nitrite Negative Urine Bilirubin Negative Urine Urobilinogen Normal Ur Leukocyte Esterase 25 H Urine RBC 0 SEEN Urine WBC 0-5 SEEN Ur Squamous Epith Cells 0-5 SEEN Amorphous Sediment 2+ URATE Urine Bacteria 0 SEEN Urine Mucus 0 SEEN - Rhythm Strip Rhythm Strip: Sinus Rhythm Rate: 93 Ectopy: None - EKG Initial EKG Interpretation: Sinus Rhythm, No Acute Injury Pattern, RBBB, LAFB Prior: Unchanged - Medical Decision Making Findings as above. Patient will need admitted given her significant functional decline. The IVC and anasarca is probably related to her congestive heart failure. She had an echocardiogram in April of this year that showed a 20% ejection fraction, mitral valve insufficiency, pulmonary hypertension, and diastolic dysfunction. Her pleural effusions are probably related to this as well. Now she has pulmonary infiltrates. Unknown if this is pneumonia on top of her effusions, but we will treat her empirically with antibiotics. As a separate issue she has significant colonic stool/constipation mostly through the right hemicolon and transverse colon. She is amenable to a soapsuds enema here. ED Disposition - Plan for ED Patient: Disposition: Acute Care Hospital [facility] Diagnosis: Pneumonia, Bilateral pleural effusion, Constipation, Acute on chronic systolic and diastolic heart failure, NYHA class 4, Declining functional status Referrals: Ted Georges Chi, MD [Primary Care Provider] -
[2019-07-31 16:19] LABS: Bacteria 0 SEEN /hpf (None Seen); Mucous, Urine 0 SEEN /hpf (<or=2+); Red Blood Cells-Urine 0 SEEN /hpf (0-5)
[2019-07-31 16:23] LABS: Color, Urine Yellow (Yellow); Glucose, Dipstick Normal (Normal); Ketone-Dipstick Negative (Negative); Leukocyte Esterase-Dipstick 25 /ul (Negative); Nitrite-Dipstick Negative (Negative); Occult Blood-Urine Negative /ul (Negative); Protein-Dipstick 100 mg/dl (Negative); Specific Gravity, Urine 1.015 (1.002-1.030); Urine Bilirubin Dipstick Negative (Negative); Urine Clarity Sl. Cloudy (Clear); Urine Urobilinogen Normal (Normal)
[2019-07-31 16:32] LABS: Amorphous Sediment 2+ URATE; Squamous Epithelial Cells - UA 0-5 SEEN /hpf (5-10); White Blood Cells 0-5 SEEN /hpf (0-5)
--- NOTE | 2019-07-31 17:20 | RAD_ITS ---
STUDY: X-RAY CHEST REASON FOR EXAM: Female, 79 years old. no BM x 2 days, intermittent shortness of breath, weakness TECHNIQUE: 1 view COMPARISON: Prior chest radiograph of May 31, 2019 FINDINGS: Left subclavian Port-A-Cath ends in the right atrium unchanged from prior exam. Large dependent bilateral pleural effusions, right greater the left with substantial compressive atelectasis or concomitant infiltrates of the bilateral lower lobes right middle lobe and lingula, right greater than left . Indeterminate cardiac size. Normal mediastinum and yeyo. Normal visualized pulmonary arteries. Normal visualized aortic arch and descending thoracic aorta. Normal visualized thoracic spine. Normal visualized ribs, clavicles, and shoulders. There is no demonstrated abnormality of the visualized soft tissue structures of the upper abdomen. RAD/Chest 1 View (Portable) IMPRESSION: Persistent bilateral large pleural effusions with bibasilar compressive atelectasis and/or concomitant infiltrates appearing increased from prior chest exam of May 31, 2019. Port-A-Cath terminates in the right atrium. Electronically Signed: Terri Callahan MD at 17:38 EDT , Service support ,
--- NOTE | 2019-07-31 18:19 | EKG12_ITS ---
Test Reason : DYSRHYTHMIA Blood Pressure : / mmHG Vent. Rate : 093 BPM Atrial Rate : 093 BPM P-R Int : 174 ms QRS Dur : 160 ms QT Int : 418 ms P-R-T Axes : 049 -68 076 degrees QTc Int : 519 ms Normal sinus rhythm Right bundle branch block Left anterior fascicular block Bifascicular block Anterolateral infarct , age undetermined Abnormal ECG Confirmed by NOEMI ROME, BÁRBARA ([id number]), assistant film editor ROMAIN DIAL ([id number]) on 08/05/2019 8:55:53 AM Referred By: BB Confirmed By:BÁRBARA FRANKLIN MD
[2019-07-31] MEDS: Azithromycin 250 MG Tablet 500 MG PO (18:50)
--- NOTE | 2019-07-31 19:33 | PCM.HP.STD ---
History of Present Illness Date of Admission: 07/31/19 Chief Complaint: Constipation The patient is a 79 year old F with PMH as below who presents from home with constipation for the last 5 days. She states that the issue of constipation is been going on and off for several weeks, and that her PCP had tried GoLYTELY which did help initially. She is having some mild periumbilical abdominal discomfort but has not had any vomiting or fevers. She also has a chronic cough that remains unchanged. She is also having some weakness at home and says that she is having difficulty completing her ADLs. She feels like she may need extra help at home for rehab prior to going home. In the ER she had a CT scan of her abdomen which demonstrated a large stool burden. She also has bilateral pleural effusions with compressive atelectasis. She is afebrile with normal vital signs, she does have a leukocytosis of 16 and was given a dose of Rocephin and azithromycin in the ER for possible community-acquired pneumonia secondary to the read of bilateral possible infiltrates on chest x-ray. She has had no sick contacts, and lives at home alone. Past Medical History Past Medical History (Chronic Problems): Chronic Problems (Last Reviewed 07/04/19 @ 13:[address] Nahid Hernandez MD) Debility (Chronic) Acute on chronic kidney failure (Chronic) Acute on chronic systolic and diastolic heart failure, NYHA class 4 (Chronic) Dysphagia (Chronic) Fecal impaction of colon (Chronic) Hypertension (Chronic) Coronary artery disease (Chronic) Hypokalemia (Chronic) Glaucoma (Chronic) Allergic rhinitis (Chronic) Dry eye (Chronic) Claustrophobia (Chronic) Anxiety (Chronic) Seizure disorder (Chronic) Acute on chronic systolic and diastolic heart failure, NYHA class 1 (Chronic) CHF (congestive heart failure) (Chronic) Lower extremity edema (Chronic) Dyspnea (Chronic) Atherosclerotic heart disease of [place] coronary artery without angina pectoris (Chronic) History of non-ST elevation myocardial infarction (NSTEMI) (Chronic 04/2019) 05/2018, 03/2019, 04/2019 Essential (primary) hypertension (Chronic) Hyperlipemia (Chronic) 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) I45.2 Iron deficiency anemia (Chronic) D50.9 Recurrent falls (Chronic) R29.6 Anemia D64.9 Chronic kidney disease, stage 3 (moderate) N18.3 Chronic renal insufficiency N18.9 Closed fracture of left inferior pubic ramus S32.592A History of Sjogren's disease Z87.39 Rheumatoid arthritis M06.9 ARF (acute renal failure) (Resolved) GI bleed K92.2 Pleural effusion, left J90 Syncope and collapse R55 Chronic diastolic (congestive) heart failure (Ruled-out) I50.32 Diastolic dysfunction (Inactive) I51.9 Left ventricular hypertrophy (Inactive) I51.7 Allergies adalimumab [From Humira] Allergy (Verified 07/31/19 14:32) Rash ciprofloxacin HCl [From Cipro] Allergy (Verified 07/31/19 14:32) Unknown clavulanic acid Allergy (Verified 07/31/19 14:32) PT UNSURE OF REACTION doxazosin Allergy (Verified 07/31/19 14:32) Other hydroxyzine [From Vistaril] Allergy (Verified 07/31/19 14:32) Other latex Allergy (Verified 07/31/19 14:32) Rash levofloxacin [From Levaquin] Allergy (Verified 07/31/19 14:32) Unknown lisinopril Allergy (Verified 07/31/19 14:32) Other COUGH Methotrexate Analogues Allergy (Verified 07/31/19 14:32) Hives naproxen Allergy (Verified 07/31/19 14:32) Unknown potassium clavulanate [From Augmentin] Allergy (Verified 07/31/19 14:32) Unknown Sulfa (Sulfonamide Antibiotics) Allergy (Verified 04/16/20 14:32) Unknown amlodipine Adverse Reaction (Severe, Verified 07/31/19 14:32) edema haloperidol lactate [From Haldol] Adverse Reaction (Unknown, Verified 07/31/19 14:32) agitation amoxicillin trihydrate [From Augmentin] Adverse Reaction (Verified 07/31/19 14:32) Upset Stomach hydromorphone HCl [From Dilaudid] Adverse Reaction (Verified 07/31/19 14:32) Other HALLUCINATIONS hydroxychloroquine sulfate [From Plaquenil] Adverse Reaction (Verified 07/31/19 14:32) Other VISION ISSUES Home Medications: Ambulatory Orders Medication Instructions Recorded atorvastatin 20 mg tablet 20 mg PO QHS 06/21/18 RX: Brimonidine Tartrate/Timolol 1 drp EACH EYE BID 02/13/19 [Combigan Eye Drops] RX: Latanoprost 1 drp EACH EYE QHS 02/13/19 RX: Acetaminophen [Tylenol] 500 - 1,000 mg PO Q8H PRN 04/28/19 RX: Lifitegrast [Xiidra] 1 ea OP BID 04/29/19 RX: Nitroglycerin [Nitrostat] 0.4 mg SUBLINGUAL Q5M PRN 05/27/19 RX: Metoprolol Tartrate [Lopressor 75 mg PO BID #0 06/03/19 (beta elena)] RX: Furosemide [Lasix] 40 mg PO BID@1000,1800 #60 tab 06/11/19 RX: Hydrocortisone 2.5% Crm 1 applic TOPICAL BID PRN PRN #1 06/11/19 [Hytone] tube ranolazine 500 mg tablet,extended 500 mg PO BID #180 tab 07/23/19 release,12 hr Calcium/D3/Mag Ox/Shipping And Receiving Specialist/Daniel/Zn 1 tab PO BID 07/31/19 [Caltrate+D3 Plus Mineral Minis] Cholecalciferol (Vitamin D3) 5,000 unit PO BID 07/31/19 [Vitamin D3] RX: Menthol/Lanolin/Calamine/Znox 1 applic TOPICAL BID 07/31/19 [Calmoseptine Ointment] RX: Mirtazapine [Remeron] 7.5 mg PO QHS 07/31/19 Ranolazine [Ranexa] 1,000 mg PO BID 07/31/19 Sacubitril/Valsartan 49-51 mg 1 tab PO BID 07/31/19 [Entresto 49 mg-51 mg Tablet] Surgical History: Surgical History (Last Reviewed 07/04/19 @ 13:[address] Nahid Hernandez MD) History of coronary artery stent placement (Resolved) Onset Date: 05/21/09 Z95.5 PCI-NIGHAT-RCA w/ 2.5 x 28 mm Promus Stent x 2, NIGHAT-Ramus w/ 2.25 x 20 Taxus Stent 05/21/2009 History of carpal tunnel release Z98.890 History of left heart catheterization Onset Date: 06/07/18 Z98.890 History of left hip replacement Z96.642 History of right hip hemiarthroplasty Z96.641 Surgical History: angioplasty, total hip arthroplasty - Bilateral, - - Carpal tunnel surgery. 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 Nahid Hernandez MD) Father No problems noted. History Items: Heart Disease Maternal Family History: Family History (Last Reviewed 07/04/19 @ 13:[address] Nahid Hernandez MD) Father No problems noted. History Items: Cancer - Mother with history of breast cancer. Review of Systems Constitutional: Reports: Weakness. Denies: Chills, Fever, Weight Change HEENT: Denies: Head Aches, Sinus Congestion, Sinus Drainage Cardiovascular: Denies: Chest Pain, Palpitations Respiratory: Denies: Cough, Shortness of breath at rest, Sputum production Gastrointestinal: Reports: Constipation. Denies: Abdominal Pain, Nausea, Vomiting Genitourinary: Denies: Dysuria Musculoskeletal: Denies: Joint Pain, Joint Tenderness Skin: Denies: Rash, Wounds Neurological: Denies: Numbness, Tingling, Focal weakness Psychiatric: Denies: Anxiety, Depression Hematologic/ Lymphatic: Denies: Easy Bruising, Easy Bleeding VTE Information - Inpt Only VTE Present on Admission: No Patient Problems: Active and Suspected Problems (Last Reviewed 07/04/19 @ 13:[address] Nahid Hernandez MD) Pneumonia (Acute) Bilateral pleural effusion (Acute) Constipation (Acute) Declining functional status (Acute) - Physical Exam Vitals/I&O's: Vital Signs Temp Pulse Resp BP Pulse Ox 97.6 F L 91 17 147/84 H 96 07/31/19 18:47 07/31/19 18:47 07/31/19 18:47 07/31/19 18:47 07/31/19 18:47 Oxygen Delivery Method Room Air Weight: 112 lb Body Mass Index (BMI) 19.2 General: Alert, Oriented x3, Cooperative, No apparent distress HEENT: Atraumatic, PERRLA, EOMI, Normocephalic Oral: Moist Mucosa Neck: Supple, No JVD Lungs: No rhonchi, No wheeze, No rales, Diminished - Diminished at the bases Cardiovascular: Regular rate, Regular Rhythm, Normal S1, Normal S2, No murmurs Abdomen: Soft, Non Tender, Non-Distended, No Hepato-splenomegaly Extremities: Capillary Refill Less than 3 Seconds, Edema - Trace pitting bilateral edema Skin: No rashes, No breakdown Neurological: Neuro grossly intact, Sensory exam intact to light touch and pain Psych/Mental Status: Normal Affect, Appropriate Laboratory Results 07/31/19 15:15: WBC 16.0 H, RBC 3.50 L, Hgb 11.9 L, Hct 38.3, MCV 109.4 H, MCH 34.0 H, MCHC 31.1 L, RDW Std Deviation 68.0 H, RDW Coeff of [place] 16.9 H, Plt Count 244, MPV 12.2 H, Immature Gran % (Auto) 0.500, Neut % (Auto) 80.9 H, Lymph % (Auto) 8.2 L, Charles % (Auto) 10.1 H, Eos % (Auto) 0.1, Baso % (Auto) 0.2, Absolute Neuts (auto) 13.0 H, Absolute Lymphs (auto) 1.31, Nucleated RBC % 0, Diff Path Review May , Platelet Estimate ADEQUATE, Hypochromasia RARE, Anisocytosis 1+, Macrocytosis 1+ 07/31/19 15:15: Sodium 140, Potassium 4.5, Chloride 107, Carbon Dioxide 24.0, Anion Gap 9, BUN 53 H, Creatinine 2.25 H, Estim Creat Clear Calc 15.99, Est GFR (MDRD) Af Amer 27 L, Est GFR (MDRD) Non-Af 22 L, BUN/Creatinine Ratio 23.6 H, Glucose 125 H, Calcium 9.3, Total Bilirubin 0.80, AST 39 H, ALT 27, Alkaline Phosphatase 155 H, Troponin I 0.112 H, Total Protein 7.2, Albumin 2.4 L, Globulin 4.8 H, Albumin/Globulin Ratio 0.5 L, Lipase 228 07/31/19 16:15: Urine Color Yellow, Urine Clarity Sl. Cloudy, Urine pH 5.0, Ur Specific [place] 1.015, Urine Protein 100 H, Urine Glucose (UA) Normal, Urine Ketones Negative, Urine Occult Blood Negative, Urine Nitrite Negative, Urine Bilirubin Negative, Urine Urobilinogen Normal, Ur Leukocyte Esterase 25 H, Urine RBC 0 SEEN, Urine WBC 0-5 SEEN, Ur Squamous Epith Cells 0-5 SEEN, Amorphous Sediment 2+ URATE, Urine Bacteria 0 SEEN, Urine Mucus 0 SEEN Current Medications Sodium Chloride () 1,000 mls @ 125 mls/hr IV .Q8H JOSLYN Last Admin: 07/31/19 15:49 Dose: 125 mls/hr Documented by: Assessment/Plan All Active Problems (Last Reviewed 07/04/19 @ 13:[address] Nahid Hernandez MD) Fall (Acute) Encephalopathy (Acute) Seizure (Acute) Hypoxia (Acute) Pneumonia (Acute) Bilateral pleural effusion (Acute) Constipation (Acute) Declining functional status (Acute) History of coronary artery stent placement (Resolved 05/21/09) Acute on chronic systolic (congestive) heart failure (Acute) ARF (acute renal failure) (Resolved) Fracture of femoral neck, left (Resolved) Hypertensive emergency (Resolved) Injury of left shoulder and upper arm (Resolved) Pyelonephritis, acute (Resolved) Scalp laceration (Resolved) Chronic diastolic (congestive) heart failure (Ruled-out) 1. Constipation/weakness inability to complete ADLs -She does have a large stool burden on CT scan of her abdomen -We will proceed with MiraLAX and a soapsuds enema -PT/OT for evaluation -Case management for discharge planning 2. CAD status post stent/HTN/HLD/acute on chronic systolic and diastolic CHF/CKD 4 -She has bilateral pleural effusions with compressive atelectasis -We will plan for thoracentesis in the morning -Continue with IV Lasix twice daily, renal function is stable at baseline creatinine -She does have some trace lower extremity edema, this is much improved compared to the last time I saw her in March since she has been discontinued on her Norvasc -We will continue on her Ranexa -Continue with her home blood pressure medications -Echo in April 2019 demonstrated stage I diastolic dysfunction as well as a EF of 20%. 3. Questionable pneumonia -She has pleural effusions leading to compressive atelectasis which is more likely than pneumonia -We will take precautions and cover her with Rocephin and azithromycin for now pending thoracentesis -Sputum culture, Legionella and strep urine antigen pending -Continue with incentive spirometer -She is afebrile without hypoxia or shortness of breath -She lives home alone and has not been in contact with anyone who is been sick 4. Glaucoma -Stable -Continue with her home eyedrops 5. RA/Sjogren's/peripheral neuropathy -She is to be on Humira, does not take anything currently -All disease have been stable -Continue to monitor DVT: Heparin Inpatient E&M: [id number] Init Hosp L3
[2019-07-31] MEDS: Ceftriaxone 1 GM/50 ML BAG IV (19:41)
[2019-07-31] MEDS: Heparin Injection (Vial) 5,000 UNIT/ML VIAL 5000 UNIT SC (23:31)
[2019-08-01] VITALS (16 sets, daily range): BP systolic 109–142; BP diastolic 60–99; PULSE 71–107; RESP 16–30; TEMP 36.5–37; O2SAT 93–100
--- NOTE | 2019-08-01 | FLU_PTH ---
PATIENT: JOSELINE NAVARRETE LOC: [facility] U#:[id number] AGE/SX: 79/F ROOM: [facility] RE07/31/[address]: Dr. Royce Riley DO : 1940 BED: 1 DIS: 08/02/2019 SPEC #: [id number] RECD: 08/01/19 13:19 STATUS: [place] REQ #: [id number] BRETT: 08/01/19 00:[address]: Royce Riley DEPT: CYTOLOGY RECD BY: Devan Blackmon ENTERED: 08/01/19 13:20 SP TYPE: Fluid OTHR DR: MD Dr. Jeffrey Valero MD Dr. Tai Chi Kwok, MD Tissues: THORACIC FLUID Procedures: Special Stain Group II Surgery Specimen Level IV Cytospin Fluid HEADER OPERATION: Ultrasound-guided thoracentesis PRE-OP DIAGNOSIS: Left pleural effusion TISSUE SUBMITTED: Thoracentesis fluid for cytology DIAGNOSIS CYTOLOGY Thoracentesis fluid for cytology (cytospin and cell block): Negative for malignant cells. Acute inflammation. See comment. BRENDAN:kei 08/04/19 COMMENT Clinical correlation and appropriate follow up are necessary. CYTOLOGY STUDY Slides are reviewed. CYTOLOGY GROSS Received is 100 ml of yellow cloudy fluid labeled with the patient's name and and designated per the requisition as thoracentesis. Submitted for cytology preparation including cell block. / kei 08/01/19 TC:2 CPT: 86106, 82150
[2019-08-01 05:36] LABS: Absolute Lymphocyte Count 1.29 X10^3/uL (0.83-4.51); Absolute Neutrophil Count 11.4 X10^3/uL (2.0-7.7); Basophil# 0.05 X10^3/uL; Basophil% 0.3 % (0-1); Eosinophil# 0.01 X10^3/uL; Eosinophils% 0.1 % (0-5); Hemoglobin 13.1 g/dL (12.0-15.0); Lymphocyte # 1.29 X10^3/ul (4.0); Mean Corp Hgb Conc 29.8 g/dL (32-36); Mean Corpuscular Hgb 33.8 pg (27.0-32.0); Mean Corpuscular Volume 113.4 fL (81-99); Mean Platelet Vol. 12.6 fl (6.2-12.0); Monocyte# 1.46 X10^3/uL; Monocyte% 10.2 % (0-10); NRBC Flagged by Analyzer 0 % (0-5); Neutrophil # 11.39 X10^3/uL (2.7-7.7); Neutrophil % 79.4 % (47-70); POSITIVE MORPHOLOGY YES; Platelet Count 175 K/mm3 (150-450); RBC Distribution Width CV 17.1 % (11.6-14.6); RBC Distribution Width SD 72.3 fl (35.1-43.9); Red Blood Count 3.88 M/mm3 (4.2-5.4); White Blood Count 14.4 K/mm3 (4.4-11.0)
[2019-08-01 05:37] LABS: Differential Indicated SCAN CRITERIA MET
[2019-08-01 05:48] LABS: Anion Gap 11 (5-15); BUN 57 mg/dL (7-18); Calcium,Total 8.8 mg/dL (8.5-10.1); Chloride 109 mmol/L (98-107); Creatinine, Serum 2.19 mg/dL (0.55-1.02); EST Glomerular Filtration Rate 23 mL/min (>60); Est Glom Filt Rate - Afr Amer 28 mL/min (>60); Estimated Creatinine Clearance 16.88 ml/min; Glucose 80 mg/dL (74-106); Potassium 4.9 mmol/L (3.5-5.1); Sodium Level 136 mmol/L (136-145)
[2019-08-01 06:41] LABS: Anisocytosis 2+; Differential Comment SCANNED; Macrocytosis 1+; Microcytosis 1+
[2019-08-01] MEDS: Azithromycin 250 MG Tablet 500 MG PO (08:52)
[2019-08-01] MEDS: Furosemide 40 MG/4 ML Vial IV ×2 (08:52→18:38)
[2019-08-01] MEDS: Polyethylene Glycol 3350 17 GM PACKET PO (08:52)
[2019-08-01] MEDS: 0.9% Saline Lock 10 ML Syringe IV ×4 (09:03→18:38)
[2019-08-01 09:06] LABS: ALB/GLOB Ratio 0.6 RATIO (0.9-2.4); Globulin 3.9 g/dL (2.2-4.2); LDH 347 U/L (84-246); Protein, Total 6.2 g/dL (6.4-8.2)
[2019-08-01 09:18] LABS: International Normalized Ratio 1.8; Prothrombin Time (Protime)PT. 20.3 SECONDS (11.7-14.9)
[2019-08-01 09:19] LABS: Partial Thromboplast Time 33.4 Seconds (24.1-36.2)
[2019-08-01] MEDS: Lactulose 20 GM/30 ML UDC 30 GM PO (09:41)
[2019-08-01 10:28] LABS: BNP,B-Type NATRIURETIC PEPTIDE > 5000.0 pg/mL (0-100)
--- NOTE | 2019-08-01 10:39 | NURSING ---
Addendum entered by Julia Jones 08/01/19 11:17: called son Anup to provide update and answer questions. Original Note: attempted to call daughter Anaya to update on plan of care for patient, no answer and voicemail box is full. will try to contact again.
--- NOTE | 2019-08-01 11:12 | CASEMGMT ---
RN CM assessment: Face to Face with patient for initial transition planning/care coordination assessment. RN CM introduced self and role at [facility], pt voices understanding and consents to assessment at this time. Pt is sitting up in bed in no distress at this time. Pt is A/Ox4 at this time and answers all questions appropriately at this time. Care providers, pharmacy, and demographics verified at this time. Presentation: Abd pain, no BM for 2 days, intermittent SOB Admitting dx: Constipation/CHF PCP: José Manuel Specialists: Latha, onc; Mary cardio [facility]it: A[facility] Living Will/HPOA: Pt has LW/HPOA and they are currently on file at [facility] at this time. Pt states her daughter, Anaya Guzman, is HPOA. LNOK: Anaya Guzman, daughter/HPOA; Anup Beandamaso Living Arrangements: Pt states lives alone in 1 story apt and states no concerns at home at this time. Pt states is normally independent with ADL's but has family to help, if/when needed. Transportation: Pt states drives family drives and states no transportation concerns at this time. DME/HHC: Pt states has a walker, grab bars, cane, raised toilet seat, w/c, and shower chair at home. Pt denies need for any further DME at this time. Pt states is current with [facility] and has been to [facility] and [facility] in the past. Pt states concerns with going home at time of discharge. Pt states is unsure is she can care for self at home. Pt states is retired. Pt states does not smoke or drink ETOH. Pt states no further concerns/needs for this RN CM at this time. CM to follow PT/OT evals and for any further discharge planning/needs. ELinda SW aware, voices understanding. Advised pt to ask for CM if any further questions/concerns/needs arise, voices understanding. Pt Goal: TBD Plan: TBD S[place]en RN CM
[2019-08-01 11:15] LABS: Pathologist Review Reviewed
--- NOTE | 2019-08-01 11:30 | RAD_ITS ---
STUDY: X-RAY CHEST REASON FOR EXAM: Female, 79 years old. POST THORACENTESIS TECHNIQUE: Two view, frontal inspiration and expiration. COMPARISON: None. FINDINGS: [place] is seen on the left side the tip is in the right atrium is in good position. The lungs are underexpanded. There is decreased size of the right pleural effusion. There is a moderate size left pleural effusion. Normal size heart. Normal mediastinum and yeyo. Normal visualized pulmonary arteries. Normal visualized aortic arch and descending thoracic aorta. There are diffuse degenerative changes of the visualized thoracic spine. There is degenerative osteoarthritis of the bilateral shoulders. There is no demonstrated abnormality of the visualized soft tissue structures of the upper abdomen. RAD/Chest Insp/Exp 2 View IMPRESSION: Decrease in size of the right pleural effusion. There is no evidence of pneumothorax. Electronically Signed: Raj Solis, at 12:52 EDT Tel , Service support ,
--- NOTE | 2019-08-01 11:33 | NURSING ---
pt transported off unit at this time via bed for thoracentesis
--- NOTE | 2019-08-01 12:20 | CON.PCM_ITS ---
Problem List (1) Debility Status: Chronic (2) Fall Status: Acute (3) Acute on chronic kidney failure Status: Chronic Qualifiers: (4) Acute on chronic systolic and diastolic heart failure, NYHA class 4 Status: Chronic (5) Fecal impaction of colon Status: Chronic (6) Hypertension Status: Chronic Reason for Consult Date of Consultation: 08/01/19 Reason for Consultation: Pleural effusion History of Present Illness: The patient is a 79 year old F, with past medical history listed below, who presented to [facility] on 07/31/2019 secondary to generalized weakness and abdominal discomfort that she attributed to constipation. Patient reportedly had had difficulty with completing ADLs at home. Patient had also reported constipation that was resistant to GoLYTELY. Patient had some diffuse abdominal pain, but no reported fevers, vomiting or nausea. Patient does have a chronic cough that is nonproductive, but not significantly changed compared to previous. Patient had reported some shortness of breath, but had attributed this to abdominal discomfort. In the ER, patient did require supplemental oxygen. Hemodynamically, patient was doing well in triage. Patient did have a CT scan of the abdomen and chest x-ray showing bilateral pleural effusions and substantial stool. Laboratory work-up did show a leukocytosis at 16 and a creatinine of 2.25. Liver enzymes were relatively unremarkable. UA was also unremarkable. It was unclear if patient was having pneumonia on top of her effusions, so she was treated empirically with antibiotics. Patient also given a soapsuds enema and patient was admitted to the PCU for further evaluation. Patient reports that she continues to have abdominal discomfort, but no nausea. Patient has not reported any bowel movements since being hospitalized. Patient denies any history of pulmonary disease. Patient thinks she may have had pleural effusions in the past, but does not remember having any thoracentesis. Patient knew that her heart was not as strong as it needs to be. Patient was unable to provide much additional information. Patient denied any tobacco, alcohol or illicit drug use. No recent trauma had been reported. Patient denied any occupational exposures. Review of systems otherwise negative from a constitutional, HEENT, respiratory, cardiovascular, GI, genitourinary, musculoskeletal, skin, neurologic, psychi atric and hematologic system unless stated above. Past Medical History Past Medical History (Chronic Problems): Chronic Problems (Last Reviewed 07/04/19 @ 13:[address] Nahid Hernandez MD) Debility (Chronic) Acute on chronic kidney failure (Chronic) Acute on chronic systolic and diastolic heart failure, NYHA class 4 (Chronic) Dysphagia (Chronic) Fecal impaction of colon (Chronic) Hypertension (Chronic) Coronary artery disease (Chronic) Hypokalemia (Chronic) Glaucoma (Chronic) Allergic rhinitis (Chronic) Dry eye (Chronic) Claustrophobia (Chronic) Anxiety (Chronic) Seizure disorder (Chronic) Acute on chronic systolic and diastolic heart failure, NYHA class 1 (Chronic) CHF (congestive heart failure) (Chronic) Lower extremity edema (Chronic) Dyspnea (Chronic) Atherosclerotic heart disease of [place] coronary artery without angina pectoris (Chronic) History of non-ST elevation myocardial infarction (NSTEMI) (Chronic 04/2019) 05/2018, 03/2019, 04/2019 Essential (primary) hypertension (Chronic) Hyperlipemia (Chronic) 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) I45.2 Iron deficiency anemia (Chronic) D50.9 Recurrent falls (Chronic) R29.6 Anemia D64.9 Chronic kidney disease, stage 3 (moderate) N18.3 Chronic renal insufficiency N18.9 Closed fracture of left inferior pubic ramus S32.592A History of Sjogren's disease Z87.39 Rheumatoid arthritis M06.9 ARF (acute renal failure) (Resolved) GI bleed K92.2 Pleural effusion, left J90 Syncope and collapse R55 Chronic diastolic (congestive) heart failure (Ruled-out) I50.32 Diastolic dysfunction (Inactive) I51.9 Left ventricular hypertrophy (Inactive) I51.7 Allergies adalimumab [From Humira] Allergy (Verified 07/31/19 14:32) Rash ciprofloxacin HCl [From Cipro] Allergy (Verified 07/31/19 14:32) Unknown clavulanic acid Allergy (Verified 07/31/19 14:32) PT UNSURE OF REACTION doxazosin Allergy (Verified 07/31/19 14:32) Other hydroxyzine [From Vistaril] Allergy (Verified 07/31/19 14:32) Other latex Allergy (Verified 07/31/19 14:32) Rash levofloxacin [From Levaquin] Allergy (Verified 07/31/19 14:32) Unknown lisinopril Allergy (Verified 07/31/19 14:32) Other COUGH Methotrexate Analogues Allergy (Verified 07/31/19 14:32) Hives naproxen Allergy (Verified 07/31/19 14:32) Unknown potassium clavulanate [From Augmentin] Allergy (Verified 07/31/19 14:32) Unknown Sulfa (Sulfonamide Antibiotics) Allergy (Verified 07/31/19 14:32) Unknown amlodipine Adverse Reaction (Severe, Verified 07/31/19 14:32) edema haloperidol lactate [From Haldol] Adverse Reaction (Unknown, Verified 07/31/19 14:32) agitation amoxicillin trihydrate [From Augmentin] Adverse Reaction (Verified 07/31/19 14:32) Upset Stomach hydromorphone HCl [From Dilaudid] Adverse Reaction (Verified 07/31/19 14:32) Other HALLUCINATIONS hydroxychloroquine sulfate [From Plaquenil] Adverse Reaction (Verified 07/31/19 14:32) Other VISION ISSUES Home Medications: Ambulatory Orders Medication Instructions Recorded atorvastatin 20 mg tablet 20 mg PO QHS 06/21/18 Brimonidine Tartrate/Timolol 1 drp EACH EYE BID 02/13/19 [Combigan Eye Drops] Latanoprost 1 drp EACH EYE QHS 02/13/19 Acetaminophen [Tylenol] 500 - 1,000 mg PO Q8H PRN 04/28/19 Lifitegrast [Xiidra] 1 ea OP BID 04/29/19 Nitroglycerin [Nitrostat] 0.4 mg SUBLINGUAL Q5M PRN 05/27/19 Metoprolol Tartrate [Lopressor 75 mg PO BID #0 06/03/19 (beta elena)] Furosemide [Lasix] 40 mg PO BID@1000,1800 #60 tab 06/11/19 Hydrocortisone 2.5% Crm [Hytone] 1 applic TOPICAL BID PRN PRN #1 06/11/19 tube ranolazine 500 mg tablet,extended 500 mg PO BID #180 tab 07/23/19 release,12 hr Calcium/D3/Mag Ox/Traffic Signal Mechanic/Daniel/Zn 1 tab PO BID 07/31/19 [Caltrate+D3 Plus [place]] Cholecalciferol (Vitamin D3) 5,000 unit PO BID 07/31/19 [Vitamin D3] Menthol/Lanolin/Calamine/Znox 1 applic TOPICAL BID 07/31/19 [Calmoseptine Ointment] Mirtazapine [Remeron] 7.5 mg PO QHS 07/31/19 Ranolazine [Ranexa] 1,000 mg PO BID 07/31/19 Sacubitril/Valsartan 49-51 mg 1 tab PO BID 07/31/19 [Entresto 49 mg-51 mg Tablet] Surgical History: Surgical History (Last Reviewed 07/04/19 @ 13:[address] Nahid Hernandez MD) History of coronary artery stent placement (Resolved) Onset Date: 05/21/09 Z95.5 PCI-NIGHAT-RCA w/ 2.5 x 28 mm Promus Stent x 2, NIGHAT-Ramus w/ 2.25 x 20 Taxus Stent 05/21/2009 History of carpal tunnel release Z98.890 History of left heart catheterization Onset Date: 06/07/18 Z98.890 History of left hip replacement Z96.642 History of right hip hemiarthroplasty Z96.641 Surgical History: angioplasty, total hip arthroplasty - Bilateral, - - Carpal tunnel surgery. 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 Nahid Hernandez MD) Father No problems noted. History Items: Heart Disease Maternal Family History: Family History (Last Reviewed 07/04/19 @ 13:[address] Nahid Hernandez MD) Father No problems noted. History Items: Cancer - Mother with history of breast cancer. Patient Problems: Active and Suspected Problems (Last Reviewed 07/04/19 @ 13:[address] Nahid Hernandez MD) Pneumonia (Acute) Bilateral pleural effusion (Acute) Constipation (Acute) Declining functional status (Acute) Objective: All imaging was personally reviewed. Chest x-ray does show substantial bilateral effusions. Previous echocardiogram showed an EF of 20% with pulmonary hypertension. Patient also had substantial diastolic dysfunction. - Physical Exam Vitals/I&O's: Vital Signs Temp Pulse Resp BP Pulse Ox 37.0 C 95 18 142/77 H 100 08/01/19 08:40 08/01/19 11:04 08/01/19 08:40 08/01/19 08:40 08/01/19 08:40 Oxygen Flow Rate (L/min) 2 Oxygen Delivery Method Nasal Cannula Weight: 52.9 kg Body Mass Index (BMI) 19.7 Intake and Output for Last 24 Hours 07/30/19 07/31/19 08/01/19 23:59 23:59 23:59 Intake Total 856.25 / 856.25 790 / 790 Output Total 200 / 200 Balance 856.25 / 856.25 590 / 590 General: Alert, Oriented x3, Cooperative, - - Moderate conversational dyspnea. Appeared frail. HEENT: Atraumatic, PERRLA, EOMI, Normocephalic, - - No scleral icterus or injection noted Oral: Moist Mucosa, No Gingival or Mucosal Lesions/ Ulcerations Neck: Supple, No Nodes, JVD, Right Lungs: No rhonchi, No wheeze, Diminished - Right greater than left, Rales, - - Dullness to percussion bilateral bases Cardiovascular: Regular rate, Regular Rhythm, Normal S1, Normal S2, Murmur - Grade 2 out of 6 systolic ejection murmur at the right sternal border, No rub noted, No Gallop Abdomen: Bowel Sounds Present, Soft, Distended - Slightly, Tender - No rebound or guarding Extremities: No clubbing, No cyanosis, No edema, Capillary Refill Less than 3 Seconds Skin: No rashes, No breakdown Musculoskeletal: No Tenderness to Palpation of Joints or Extremities, Cachexia, Muscle Wasting Lymphatic: No Cervical, Supraclavicular, or Inguinal Adenopathy Neurological: Cranial nerves II-XII grossly intact, Neuro grossly intact, Motor Exam 5/5 strength throughout Psych/Mental Status: Normal Affect, Appropriate Microbiology Past 72 Hours 07/31/19 18:42 Mucosa - Nasopharyngeal Respiratory Panel (PCR) - Final 07/31/19 16:15 Urine, Random Streptococcus pneumoniae Antigen (M - Final 07/31/19 16:15 Urine, Random Legionella Antigen - Final Laboratory Results 07/31/19 15:15: WBC 16.0 H, RBC 3.50 L, Hgb 11.9 L, Hct 38.3, MCV 109.4 H, MCH 34.0 H, MCHC 31.1 L, RDW Std Deviation 68.0 H, RDW Coeff of [place] 16.9 H, Plt Count 244, MPV 12.2 H, Immature Gran % (Auto) 0.500, Neut % (Auto) 80.9 H, Lymph % (Auto) 8.2 L, [place] % (Auto) 10.1 H, Eos % (Auto) 0.1, Baso % (Auto) 0.2, Absolute Neuts (auto) 13.0 H, Absolute Lymphs (auto) 1.31, Nucleated RBC % 0, Diff Path Review Reviewed, Platelet Estimate ADEQUATE, Hypochromasia RARE, Anisocytosis 1+, Macrocytosis 1+ 07/31/19 15:15: Sodium 140, Potassium 4.5, Chloride 107, Carbon Dioxide 24.0, Anion Gap 9, BUN 53 H, Creatinine 2.25 H, Estim Creat Clear Calc 15.99, Est GFR (MDRD) Af Amer 27 L, Est GFR (MDRD) Non-Af 22 L, BUN/Creatinine Ratio 23.6 H, Glucose 125 H, Calcium 9.3, Total Bilirubin 0.80, AST 39 H, ALT 27, Alkaline Phosphatase 155 H, Troponin I 0.112 H, Total Protein 7.2, Albumin 2.4 L, Globulin 4.8 H, Albumin/Globulin Ratio 0.5 L, Lipase 228 07/31/19 16:15: Urine Color Yellow, Urine Clarity Sl. Cloudy, Urine pH 5.0, Ur Specific [place] 1.015, Urine Protein 100 H, Urine Glucose (UA) Normal, Urine Ketones Negative, Urine Occult Blood Negative, Urine Nitrite Negative, Urine Bilirubin Negative, Urine Urobilinogen Normal, Ur Leukocyte Esterase 25 H, Urine RBC 0 SEEN, Urine WBC 0-5 SEEN, Ur Squamous Epith Cells 0-5 SEEN, Amorphous Se diment 2+ URATE, Urine Bacteria 0 SEEN, Urine Mucus 0 SEEN 08/01/19 05:08: WBC 14.4 H, RBC 3.88 L, Hgb 13.1, Hct 44.0, MCV 113.4 H, MCH 33.8 H, MCHC 29.8 L, RDW Std Deviation 72.3 H, RDW Coeff of [place] 17.1 H, Plt Count 175, MPV 12.6 H, Immature Gran % (Auto) 1.000 H, Neut % (Auto) 79.4 H, Lymph % (Auto) 9.0 L, [place] % (Auto) 10.2 H, Eos % (Auto) 0.1, Baso % (Auto) 0.3, Absolute Neuts (auto) 11.4 H, Absolute Lymphs (auto) 1.29, Nucleated RBC % 0, Differential Comment SCANNED, Anisocytosis 2+, Microcytosis 1+, Macrocytosis 1+ 08/01/19 05:08: Sodium 136, Potassium 4.9, Chloride 109 H, Carbon Dioxide 16.0 L , Anion Gap 11, BUN 57 H, Creatinine 2.19 H, Estim Creat Clear Calc 16.88, Est GFR (MDRD) Af Amer 28 L, Est GFR (MDRD) Non-Af 23 L, BUN/Creatinine Ratio 26.0 H , Glucose 80, Calcium 8.8 08/01/19 08:00: B-Natriuretic Peptide > 5000.0 H 08/01/19 08:00: Lactate Dehydrogenase 347 H, Total Protein 6.2 L, Globulin 3.9, Albumin/Globulin Ratio 0.6 L 08/01/19 08:52: PT 20.3 H, INR 1.8, APTT 33.4 Current Medications Acetaminophen (Tylenol) 650 mg PO Q6H PRN PRN PRN Reason: Pain Score 1-10/Temp > 100.7 F Azithromycin (Zithromax) 500 mg PO Q24 [facility] Last Admin: 08/01/19 08:52 Dose: 500 mg Documented by: Furosemide (Lasix) 40 mg IV BID@1000,1800 [facility] Last Admin: 08/01/19 08:52 Dose: 40 mg Documented by: Heparin Sodium (Porcine) (Heparin Na) 5,000 unit SC Q12 [facility] Last Admin: 08/01/19 08:19 Dose: Not Given Documented by: Ceftriaxone Sodium 2 gm/ (Sodium Chloride) 50 mls @ 100 mls/hr IV Q24 [facility] Last Infusion: 08/01/19 09:33 Dose: Infused Documented by: Sodium Chloride () 250 mls @ 15 mls/hr IV .[id number] PRN PRN Reason: Saline Flush Sodium Chloride () 250 mls @ 15 mls/hr IV .[id number] PRN PRN Reason: Additional IVPB Infusion Lactulose (Chronulac, Cephulac) 20 gm PO BID [facility] Nutritional Formula (Lactose Free) (Ensure Clear) 120 ml PO 4X/DAY [facility] Ondansetron HCl (Zofran) 4 mg IV Q8H PRN PRN PRN Reason: NAUSEA/VOMITING Polyethylene Glycol (Miralax) 17 gm PO DAILY [facility] Last Admin: 08/01/19 08:52 Dose: 17 gm Documented by: Sodium Chloride () 10 - 40 ml IV UD PRN PRN Reason: SALINE FLUSH Last Admin: 08/01/19 09:47 Dose: 10 ml Documented by: Clinical Impression(s) from Imaging Studies Abdomen/Pelvis CT 07/31/19 14:50 IMPRESSION: Bilateral large dependent pleural effusions with compressive atelectasis and/or concomitant parenchymal infiltrates more advanced on the right than left. Distended inferior vena cava and hepatic veins. Generalized anasarca. Small amount of pelvic free fluid/ascites. Stable pancreatic atrophy. Mild bilateral renal atrophy. Nonobstructing renal stones and vascular calcifications without hydronephrosis or ureteral stones. Limited visualization of the bladder and ureter secondary to bilateral total hip hardware. Substantial solid stool in the colon from the right colon to the splenic flexure with a stool-filled loop of transverse colon extending into the pelvis. Nondistended left and distal colon. Potential high impaction. Nonvisualized appendix. Negative for pelvic mass. Recent healing fracture of the left inferior pubic ramus, left superior pubic ramus and a vertical left sacral fracture. Old fractures of the right superior and inferior pubic rami present on prior exam of 2016. Subacute mild superior endplate compression deformity of L3 probably a relatively recent healing fracture. Definitely not present on prior exam of 2017. Electronically Signed: Terri Callahan MD at 18:10 EDT , Service support , Chest X-Ray 07/31/19 17:20 IMPRESSION: Persistent bilateral large pleural effusions with bibasilar compressive atelectasis and/or concomitant infiltrates appearing increased from prior chest exam of May 31, 2019. Port-A-Cath terminates in the right atrium. Electronically Signed: Terri Callahan MD at 17:38 EDT , Service support , Assessment/Plan All Active Problems (Last Reviewed 07/04/19 @ 13:[address] Nahid Hernandez MD) Fall (Acute) Encephalopathy (Acute) Seizure (Acute) Hypoxia (Acute) Pneumonia (Acute) Bilateral pleural effusion (Acute) Constipation (Acute) Declining functional status (Acute) History of coronary artery stent placement (Resolved 05/21/09) Acute on chronic systolic (congestive) heart failure (Acute) ARF (acute renal failure) (Resolved) Fracture of femoral neck, left (Resolved) Hypertensive emergency (Resolved) Injury of left shoulder and upper arm (Resolved) Pyelonephritis, acute (Resolved) Scalp laceration (Resolved) Chronic diastolic (congestive) heart failure (Ruled-out) RECOMMENDATIONS: 1. Obtain diagnostic/therapeutic thoracentesis 2. Wean oxygen as tolerated 3. Likely okay to discontinue antibiotics from my perspective 4. Consider cardiology evaluation if patient truly requests full CODE STATUS 5. Agree with diuretic therapy IMPRESSIONS: 1. Acute hypoxic respiratory insufficiency secondary to bilateral pleural effusions By clinical suspicion for transudate etiology given echocardiogram findings. Patient should have a therapeutic and diagnostic thoracentesis. If t his is consistent with transudate, infection would be unlikely. Clinical suspicion for elevated white blood cell count secondary to stress reaction given protracted course. Unclear if patient will tolerate diuretic therapy for resolution of the second side. Patient does have conversational dyspnea, so this may be necessary in the future. No indication for steroids in my opinion. Further recommendations once pleural studies are completed 2. Acute on chronic combined CHF Patient was significantly depressed ejection fraction and diastolic dysfunction on echocardiogram. This was done recently and likely does not need to be repeated. Consider cardiology consultation for CHF optimization if patient truly wishes to be a full code. Patient does have multiple allergies that limit therapeutic options. Agree with diuretic therapy. BNP is severely elevated, likely from a protracted course with renal dysfunction more than complete decompensation given adequate blood pressure. 3. Fecal impaction/hypertension/CAD/glaucoma/seizure disorder/hyperlipidemia/failure to thrive/CKD stage IV Complicates care, management, recovery and prognosis. Likely okay to continue with baseline medications. Defer to hospitalist. Consider dietitian consultation for failure to thrive. Case management to evaluate for possible placement. Inpatient E&M: [id number] Init Hosp L3
[2019-08-01 12:53] LABS: Body Fluid Mononuclear WBC # 0.251 10^3/uL; Body Fluid Mononuclear WBC % 18.4 %; Body Fluid Polynuclear WBC # 1.115 10^3/uL; Body Fluid Polynuclear WBC % 81.6 %; Body Fluid Total Cells Counted 1.379 10^3/ul; White Blood Count/Body Fluid 1.366 10^3/uL
[2019-08-01 13:09] LABS: Glucose, Body Fluid 97 mg/dL (40-70); LDH,Body Fluid 146 Units/l (Not Establ.); Protein, Body Fluid 2.3 g/dL (Not Establ.)
--- NOTE | 2019-08-01 13:14 | PN_ITS ---
Patient Problems: Active and Suspected Problems (Last Reviewed 07/04/19 @ 13:[address] Nahid Hernandez MD) Pneumonia (Acute) Bilateral pleural effusion (Acute) Constipation (Acute) Declining functional status (Acute) Reason for Visit: SOB Subjective: Ongoing non productive cough and SOB at rest. Pt seen and examined prior to thora. No CP, LH, dizziness, Palp, or LE edema. Pt had BM last evening somewhat watery with solids mixed in. Vitals/I&O's: Vital Signs Temp Pulse Resp BP Pulse Ox 98.4 F 94 20 H 129/70 H 99 08/01/19 12:45 08/01/19 12:45 08/01/19 12:45 08/01/19 12:45 08/01/19 12:45 Oxygen Flow Rate (L/min) [3] 2 Oxygen Flow Rate (L/min) [2] 2 Oxygen Flow Rate (L/min) [1 ( 2 Initial Baseline)] Oxygen Flow Rate (L/min) 2 Oxygen Delivery Method [3] Nasal Cannula Oxygen Delivery Method [2] Nasal Cannula Oxygen Delivery Method [1 ( Nasal Cannula Initial Baseline)] Oxygen Delivery Method Nasal Cannula Weight: 116 lb 9.992 oz Body Mass Index (BMI) 19.7 Intake and Output for Last 24 Hours 07/30/19 07/31/19 08/01/19 23:59 23:59 23:59 Intake Total 856.25 / 856.25 790 / 790 Output Total 980 / 980 Balance 856.25 / 856.25 -190 / -190 General: Alert, Oriented x3, Cooperative HEENT: Atraumatic, PERRLA, EOMI, Normocephalic Neck: Supple, No JVD, Negative Carotid Bruits Lungs: Clear to auscultation, Diminished Cardiovascular: Regular rate, No murmurs Abdomen: Bowel Sounds Present, Soft, Non Tender Extremities: No edema, Capillary Refill Less than 3 Seconds Skin: No rashes, No breakdown Musculoskeletal: No Tenderness to Palpation of Joints or Extremities Neurological: Cranial nerves II-XII grossly intact Psych/Mental Status: Normal Affect, Appropriate, Alert and oriented to time, place, person, mood and affect Microbiology Past 72 Hours 07/31/19 18:42 Mucosa - Nasopharyngeal Respiratory Panel (PCR) - Final 07/31/19 16:15 Urine, Random Streptococcus pneumoniae Antigen (M - Final 07/31/19 16:15 Urine, Random Legionella Antigen - Final Laboratory Results 07/31/19 15:15: WBC 16.0 H, RBC 3.50 L, Hgb 11.9 L, Hct 38.3, MCV 109.4 H, MCH 34.0 H, MCHC 31.1 L, RDW Std Deviation 68.0 H, RDW Coeff of Myke 16.9 H, Plt Count 244, MPV 12.2 H, Immature Gran % (Auto) 0.500, Neut % (Auto) 80.9 H, Lymph % (Auto) 8.2 L, Curry % (Auto) 10.1 H, Eos % (Auto) 0.1, Baso % (Auto) 0.2, Absolute Neuts (auto) 13.0 H, Absolute Lymphs (auto) 1.31, Nucleated RBC % 0, Diff Path Review Reviewed, Platelet Estimate ADEQUATE, Hypochromasia RARE, Anisocytosis 1+, Macrocytosis 1+ 07/31/19 15:15: Sodium 140, Potassium 4.5, Chloride 107, Carbon Dioxide 24.0, Anion Gap 9, BUN 53 H, Creatinine 2.25 H, Estim Creat Clear Calc 15.99, Est GFR (MDRD) Af Amer 27 L, Est GFR (MDRD) Non-Af 22 L, BUN/Creatinine Ratio 23.6 H, Glucose 125 H, Calcium 9.3, Total Bilirubin 0.80, AST 39 H, ALT 27, Alkaline Phosphatase 155 H, Troponin I 0.112 H, Total Protein 7.2, Albumin 2.4 L, Globulin 4.8 H, Albumin/Globulin Ratio 0.5 L, Lipase 228 07/31/19 16:15: Urine Color Yellow, Urine Clarity Sl. Cloudy, Urine pH 5.0, Ur Specific [place] 1.015, Urine Protein 100 H, Urine Glucose (UA) Normal, Urine Ketones Negative, Urine Occult Blood Negative, Urine Nitrite Negative, Urine Bilirubin Negative, Urine Urobilinogen Normal, Ur Leukocyte Esterase 25 H, Urine RBC 0 SEEN, Urine WBC 0-5 SEEN, Ur Squamous Epith Cells 0-5 SEEN, Amorphous Sediment 2+ URATE, Urine Bacteria 0 SEEN, Urine Mucus 0 SEEN 08/01/19 05:08: WBC 14.4 H, RBC 3.88 L, Hgb 13.1, Hct 44.0, MCV 113.4 H, MCH 33.8 H, MCHC 29.8 L, RDW Std Deviation 72.3 H, RDW Coeff of Myke 17.1 H, Plt Count 175, MPV 12.6 H, Immature Gran % (Auto) 1.000 H, Neut % (Auto) 79.4 H, Lymph % (Auto) 9.0 L, Curry % (Auto) 10.2 H, Eos % (Auto) 0.1, Baso % (Auto) 0.3, Absolute Neuts (auto) 11.4 H, Absolute Lymphs (auto) 1.29, Nucleated RBC % 0, Differential Comment SCANNED, Anisocytosis 2+, Microcytosis 1+, Macrocytosis 1+ 08/01/19 05:08: Sodium 136, Potassium 4.9, Chloride 109 H, Carbon Dioxide 16.0 L , Anion Gap 11, BUN 57 H, Creatinine 2.19 H, Estim Creat Clear Calc 16.88, Est GFR (MDRD) Af Amer 28 L, Est GFR (MDRD) Non-Af 23 L, BUN/Creatinine Ratio 26.0 H , Glucose 80, Calcium 8.8 08/01/19 08:00: B-Natriuretic Peptide > 5000.0 H 08/01/19 08:00: Lactate Dehydrogenase 347 H, Total Protein 6.2 L, Globulin 3.9, Albumin/Globulin Ratio 0.6 L 08/01/19 08:52: PT 20.3 H, INR 1.8, APTT 33.4 08/01/19 11:45: Fluid Glucose 97 H, Fluid Total Protein 2.3, Fluid LDH 146 08/01/19 11:45: Fluid Source Pending, Fluid Color Pending, Fluid Appearance Pending, Fluid WBC 1.366, Fluid RBC Pending, Fluid Tot Cell Count 1.379 H, Fld Polynuclear WBCs # 1.115, Fld Polynuclear WBCs % 81.6, Fluid Mononuclear WBCs 0.251, Fld Mononuclear WBCs % 18.4, Fl Pathologist Comment Pending, Fluid Comment 2 Pending Current Medications Acetaminophen (Tylenol) 650 mg PO Q6H PRN PRN PRN Reason: Pain Score 1-10/Temp > 100.7 F Furosemide (Lasix) 40 mg IV BID@1000,1800 JOSLYN Last Admin: 08/01/19 08:52 Dose: 40 mg Documented by: Heparin Sodium (Porcine) (Heparin Na) 5,000 unit SC Q12 [facility] Last Admin: 08/01/19 08:19 Dose: Not Given Documented by: Sodium Chloride () 250 mls @ 15 mls/hr IV .[id number] PRN PRN Reason: Saline Flush Sodium Chloride () 250 mls @ 15 mls/hr IV .[id number] PRN PRN Reason: Additional IVPB Infusion Lactulose (Chronulac, Cephulac) 20 gm PO BID [facility] Nutritional Formula (Lactose Free) (Ensure Clear) 120 ml PO 4X/DAY [facility] Ondansetron HCl (Zofran) 4 mg IV Q8H PRN PRN PRN Reason: NAUSEA/VOMITING Polyethylene Glycol (Miralax) 17 gm PO DAILY [facility] Last Admin: 08/01/19 08:52 Dose: 17 gm Documented by: Sodium Chloride () 10 - 40 ml IV UD PRN PRN Reason: SALINE FLUSH Last Admin: 08/01/19 09:47 Dose: 10 ml Documented by: STROKE Vital Signs/Narrative: Vital Signs Temp Temp Pulse Pulse Pulse Pulse Resp 08/01/19 12:45 98.4 F 94 20 H 08/01/19 11:50 98.5 F 107 H 98 95 08/01/19 11:04 95 Resp Resp Resp BP BP BP BP 08/01/19 12:45 129/70 H 08/01/19 11:50 26 H 24 H 30 H 128/67 H 132/60 H 127/99 H 08/01/19 11:04 Pulse Ox 08/01/19 12:45 99 08/01/19 11:50 08/01/19 11:04 Medical Necessity - Tobacco Use Smoking Status: Never smoker Assessment/Plan All Active Problems (Last Reviewed 07/04/19 @ 13:[address] Nahid Hernandez MD) Fall (Acute) Encephalopathy (Acute) Seizure (Acute) Hypoxia (Acute) Pneumonia (Acute) Bilateral pleural effusion (Acute) Constipation (Acute) Declining functional status (Acute) History of coronary artery stent placement (Resolved 05/21/09) Acute on chronic systolic (congestive) heart failure (Acute) ARF (acute renal failure) (Resolved) Fracture of femoral neck, left (Resolved) Hypertensive emergency (Resolved) Injury of left shoulder and upper arm (Resolved) Pyelonephritis, acute (Resolved) Scalp laceration (Resolved) Chronic diastolic (congestive) heart failure (Ruled-out) 1. Acute on chronic systolic CHF - lights criteria c/w transudate. Pna unlikely. DC Abx. 780 cc fluid drained today from the right side, none left. Pulm following. Continue IV lasix. BNP >5000. WBC down from 16 to 14. No fever. Resp panel neg, urine antigens neg. Fluid cx pending. Resume home meds. 2. Constipation - BM last night. Continue prn meds. 3. Indeterminate troponin - chronically elevated. 4. Hx RA and Sjogrens - uses humira. 5. Hx seizures - dcd on keppra in May. Not currently listed, nursing to verify if she is still on this. 6. Hx CAD, prior stent - continue home meds. Pt of Dr. Hernandez. 7. Hx glaucoma - continue home drops. 8. CKD IV - stable. repeat bmp in AM. DVT ppx: SCDs DC planning: [place]. Pt follows with palliative care. This patient was seen by César Bates PA-C under the supervision of Dr. Riley.
--- NOTE | 2019-08-01 13:22 | CASEMGMT ---
SW met with patient, introduced self and role at [facility]. SW spoke with patient about going somewhere for rehab. She has been to TCU before and would go back if she had to. Therapy did see her today and she did not do well so they are recommending SNF. Patient told SW to talk with her daughter. SW called patient's daughter, Anaya and explained above. She was also in agreement with [facility] TCU. SW spoke with Cristin and she said they could take her. SW also called Palliative Care to see if patient is still active with them and she is still active. Plan: [facility] TCU pending pre-cert.
[2019-08-01 13:45] LABS: Appearance/Body Fluid CLEAR; Auto B Fluid Analyzer BKGD Ct COUNTS W/IN LIMITS (W/IN LIMITS); Color/Body Fluid LT YEL
[2019-08-01 13:46] LABS: Red Cell Count/Body Fluid 170 /mm3; Source- Body Fluid THORACENTESIS
[2019-08-01] MEDS: oxyCODONE 5 MG Tablet PO (13:57)
[2019-08-01] MEDS: Acetaminophen 325 MG Tablet 650 MG PO (13:57)
--- NOTE | 2019-08-01 14:31 | US_ITS ---
PROCEDURE: ULTRASOUND GUIDED THORACENTESIS - LEFT CLINICAL HISTORY: Female, 79 years old. Left pleural effusion CONSENT: The risks, benefits and alternatives to the procedure were explained to the patient, and the patient agreed to the procedure and signed the consent. STERILE BARRIER TECHNIQUE: The following sterile barrier precautions were used during the procedure: hand hygiene; use of 2% chlorhexidine aseptic; use of a cap, mask, sterile gown, sterile gloves, sterile full body drape, and a large sterile sheet. SEDATION: Local anesthesia TECHNIQUE: Under the ultrasound guidance using all elements of maximum sterile technique and after infiltration of the skin and subcutaneous soft tissues with 10 mL of lidocaine 1% a 5 Wolof drainage catheter is introduced in the lower part of the left hemithorax. 800 mL of fluid were removed sample sent to lab for evaluation. The patient tolerated the procedure there was no immediate complication. US/Thoracentesis W US IMPRESSION: Successful ultrasound-guided left thoracentesis. Electronically Signed: Raj Solis, at 0:55 EDT Tel , Service support ,
--- NOTE | 2019-08-01 14:44 | NURSING ---
pt transported back to radiology via bed at this time.
[2019-08-01 14:56] LABS: Monocytes 13 %; Neutrophil (Segs) 85 %
[2019-08-01 14:58] LABS: Lymphocytes 1 %; Mesothelial Cells 1 %
--- NOTE | 2019-08-01 15:20 | RAD_ITS ---
STUDY: X-RAY CHEST REASON FOR EXAM: Female, 79 years old. post left sided thoracentesis TECHNIQUE: Single AP portable view of the chest. COMPARISON: None. FINDINGS: Mediporte is seen on the left side the tip is in the right atrium is in good position. The lungs are underexpanded. There is decreased size of the left pleural effusion. There is no pneumothorax. Normal size heart. Normal mediastinum and yeyo. Normal visualized pulmonary arteries. Normal visualized aortic arch and descending thoracic aorta. There are diffuse degenerative changes of the visualized thoracic spine. There is degenerative osteoarthritis of the bilateral shoulders. There is no demonstrated abnormality of the visualized soft tissue structures of the upper abdomen. RAD/Chest Insp/Exp 2 View IMPRESSION: There is decreased size of the left pleural effusion. There is no pneumothorax. Electronically Signed: Raj Solis, at 15:30 EDT Tel , Service support ,
[2019-08-01] MEDS: Morphine 2 MG/ML Syringe IV (16:00)
--- NOTE | 2019-08-01 19:53 | US_ITS ---
PROCEDURE: ULTRASOUND GUIDED THORACENTESIS - RIGHT CLINICAL HISTORY: Female, 79 years old. Right pleural effusion CONSENT: The risks, benefits and alternatives to the procedure were explained to the patient, and the patient agreed to the procedure and signed the consent. STERILE BARRIER TECHNIQUE: The following sterile barrier precautions were used during the procedure: hand hygiene; use of 2% chlorhexidine aseptic; use of a cap, mask, sterile gown, sterile gloves, sterile full body drape, and a large sterile sheet. SEDATION: Local anesthesia TECHNIQUE: Under the ultrasound guidance using all elements of maximum sterile technique and after infiltration of the skin and subcutaneous soft tissues with 10 mL of lidocaine 1% a 5 English drainage catheter is introduced in the lower part of the right hemithorax. 780 mL of fluid were removed sample sent to lab for evaluation. The patient tolerated the procedure there was no immediate complication. US/Thoracentesis W US IMPRESSION: Successful ultrasound-guided right thoracentesis. Electronically Signed: Raj Solis, at 12:54 EDT Tel , Service support ,
[2019-08-01] MEDS: Metoprolol Tartrate 25 MG Tablet 75 MG PO (21:57)
[2019-08-01] MEDS: Mirtazapine 15 MG Tablet 7.5 MG PO (21:57)
[2019-08-01] MEDS: Ranolazine 500 MG Tablet 1000 MG PO (21:57)
[2019-08-01] MEDS: BRIMONIDINE 0.2% 5ML BOTTLE 1 DRP EACH EYE (21:58)
[2019-08-01] MEDS: LIFITEGRAST 1 EACH DROPERETTE OP (21:58)
[2019-08-01] MEDS: Atorvastatin Calcium 20 MG Tablet PO (21:58)
[2019-08-01] MEDS: Timolol 0.5% 5ML OPTH.BTL 1 DRP EACH EYE (21:58)
[2019-08-01] MEDS: SACUBITRIL/VALSARTAN 49-51 MG TABLET 1 EACH PO (21:58)
[2019-08-01] MEDS: Heparin Injection (Vial) 5,000 UNIT/ML VIAL 5000 UNIT SC (21:58)
[2019-08-01] MEDS: Lactulose 20 GM/30 ML UDC PO (21:59)
[2019-08-01] MEDS: Latanoprost 0.005% 1 Bottle 1 DRP EACH EYE (21:59)
[2019-08-02] VITALS (10 sets, daily range): BP systolic 94–107; BP diastolic 42–53; PULSE 74–85; RESP 18; TEMP 36.6–36.8; O2SAT 92–97
[2019-08-02] MEDS: Acetaminophen 325 MG Tablet 650 MG PO (03:38)
[2019-08-02 07:02] LABS: Absolute Lymphocyte Count 0.92 X10^3/uL (0.83-4.51); Absolute Neutrophil Count 11.7 X10^3/uL (2.0-7.7); Basophil# 0.02 X10^3/uL; Basophil% 0.1 % (0-1); Eosinophil# 0.03 X10^3/uL; Eosinophils% 0.2 % (0-5); Hemoglobin 10.9 g/dL (12.0-15.0); Lymphocyte # 0.92 X10^3/ul (4.0); Lymphocyte % 6.6 % (19-41); Mean Corp Hgb Conc 30.3 g/dL (32-36); Mean Corpuscular Hgb 32.7 pg (27.0-32.0); Mean Corpuscular Volume 108.1 fL (81-99); Mean Platelet Vol. 12.4 fl (6.2-12.0); Monocyte# 1.23 X10^3/uL; Monocyte% 8.8 % (0-10); NRBC Flagged by Analyzer 0 % (0-5); Neutrophil % 83.9 % (47-70); POSITIVE MORPHOLOGY YES; Platelet Count 207 K/mm3 (150-450); RBC Distribution Width CV 16.7 % (11.6-14.6); RBC Distribution Width SD 66.2 fl (35.1-43.9); Red Blood Count 3.33 M/mm3 (4.2-5.4)
[2019-08-02 07:05] LABS: Differential Indicated SCAN CRITERIA MET
[2019-08-02 07:35] LABS: Anion Gap 9 (5-15); BUN 58 mg/dL (7-18); BUN/Creat Ratio 23.7 RATIO (10-20); Calcium,Total 8.2 mg/dL (8.5-10.1); Chloride 110 mmol/L (98-107); Creatinine, Serum 2.45 mg/dL (0.55-1.02); EST Glomerular Filtration Rate 20 mL/min (>60); Est Glom Filt Rate - Afr Amer 24 mL/min (>60); Estimated Creatinine Clearance 15.27 ml/min; Glucose 78 mg/dL (74-106); Potassium 4.6 mmol/L (3.5-5.1); Sodium Level 141 mmol/L (136-145)
[2019-08-02 07:52] LABS: Anisocytosis 1+
--- NOTE | 2019-08-02 08:11 | PN_ITS ---
Patient Problems: Active and Suspected Problems (Last Reviewed 07/04/19 @ 13:[address] Nahid Hernandez MD) Pneumonia (Acute) Bilateral pleural effusion (Acute) Constipation (Acute) Declining functional status (Acute) Subjective: Patient reports she did have a bowel movement yesterday. Patient also had a thoracentesis and reported significant improvement in dyspnea. Patient is still on minimal nasal cannula oxygen. Objective: Postthoracentesis chest x-ray was reviewed. This shows no complication with normalization of effusion. - Physical Exam Vitals/I&O's: Vital Signs Temp Pulse Resp BP Pulse Ox 36.8 C 74 18 107/52 L 97 08/02/19 03:30 08/02/19 07:00 08/02/19 03:30 08/02/19 03:30 08/02/19 03:30 Oxygen Flow Rate (L/min) [4] 2 Oxygen Flow Rate (L/min) [3] 2 Oxygen Flow Rate (L/min) [2] 2 Oxygen Flow Rate (L/min) [1 ( 2 Initial Baseline)] Oxygen Flow Rate (L/min) 2 Oxygen Delivery Method [4] Nasal Cannula Oxygen Delivery Method [3] Nasal Cannula Oxygen Delivery Method [2] Nasal Cannula Oxygen Delivery Method [1 ( Nasal Cannula Initial Baseline)] Oxygen Delivery Method Nasal Cannula Weight: 52.8 kg Body Mass Index (BMI) 19.7 Intake and Output for Last 24 Hours 07/31/19 08/01/19 08/02/19 23:59 23:59 23:59 Intake Total 856.25 / 856.25 1280 / 1280 240 / 240 Output Total 1979 / 1979 300 / 300 Balance 856.25 / 856.25 -700 / -700 -60 / -60 General: Alert, Oriented x3, Cooperative, - - Frail appearance. No conversational dyspnea. HEENT: Atraumatic, PERRLA, EOMI, Normocephalic, - - Some temporal wasting noted Oral: Moist Mucosa, No Gingival or Mucosal Lesions/ Ulcerations Neck: Supple, No JVD, No Nodes, Trachea Midline Lungs: No rhonchi, No wheeze, No rales, Diminished, - - Fair effort. Some kyphosis noted. Cardiovascular: Regular rate, Regular Rhythm, Normal S1, Normal S2, Murmur - Unchanged, No rub noted, No Gallop Abdomen: Bowel Sounds Present, Soft, Non Tender, Non-Distended Extremities: No clubbing, No cyanosis, No edema Skin: No rashes, No breakdown Musculoskeletal: No Tenderness to Palpation of Joints or Extremities Lymphatic: No Cervical, Supraclavicular, or Inguinal Adenopathy Neurological: Cranial nerves II-XII grossly intact, Neuro grossly intact, Motor Exam 5/5 strength throughout Psych/Mental Status: Alert and oriented to time, place, person, mood and affect Microbiology Past 72 Hours 08/01/19 11:45 Fluid - Thoracentesis Fluid Gram Stain - Final 07/31/19 18:42 Mucosa - Nasopharyngeal Respiratory Panel (PCR) - Final 07/31/19 16:15 Urine, Random Streptococcus pneumoniae Antigen (M - Final 07/31/19 16:15 Urine, Random Legionella Antigen - Final Laboratory Results 07/31/19 15:15: Diff Path Review Reviewed 08/01/19 08:00: B-Natriuretic Peptide > 5000.0 H 08/01/19 08:00: Lactate Dehydrogenase 347 H, Total Protein 6.2 L, Globulin 3.9, Albumin/Globulin Ratio 0.6 L 08/01/19 08:52: PT 20.3 H, INR 1.8, APTT 33.4 08/01/19 11:45: Fluid Glucose 97 H, Fluid Total Protein 2.3, Fluid LDH 146 08/01/19 11:45: Fluid Source THORACENTESIS, Fluid Color LT YEL, Fluid Appearance CLEAR, Fluid WBC 1.366, Fluid RBC 170, Fluid Tot Cell Count 1.379 H, Fld Polynuclear WBCs # 1.115, Fld Polynuclear WBCs % 81.6, Fluid Mononuclear WBCs 0.251, Fld Mononuclear WBCs % 18.4, Fluid Neutrophils 85, Fluid Lymphocytes 1, Fluid Monocytes 13, Fld Mesothelial Cells 1, Fl Pathologist Comment May follow, Fluid Comment 2 SEE COMMENT 08/02/19 06:41: WBC 14.0 H, RBC 3.33 L, Hgb 10.9 L, Hct 36.0 L, MCV 108.1 H, MCH 32.7 H, MCHC 30.3 L, RDW Std Deviation 66.2 H, RDW Coeff of Myke 16.7 H, Plt Count 207, MPV 12.4 H, Immature Gran % (Auto) 0.400, Neut % (Auto) 83.9 H, Lymph % (Auto) 6.6 L, [place] % (Auto) 8.8, Eos % (Auto) 0.2, Baso % (Auto) 0.1, Absolute Neuts (auto) 11.7 H, Absolute Lymphs (auto) 0.92, Nucleated RBC % 0, Anisocytosis 1+ 08/02/19 06:41: Sodium 141, Potassium 4.6, Chloride 110 H, Carbon Dioxide 22.0, Anion Gap 9, BUN 58 H, Creatinine 2.45 H, Estim Creat Clear Calc 15.27, Est GFR (MDRD) Af Amer 24 L, Est GFR (MDRD) Non-Af 20 L, BUN/Creatinine Ratio 23.7 H, Glucose 78, Calcium 8.2 L Current Medications Acetaminophen (Tylenol) 650 mg PO Q6H PRN PRN PRN Reason: Pain Score 1-10/Temp > 100.7 F Last Admin: 08/02/19 03:38 Dose: 650 mg Documented by: Atorvastatin Calcium (Lipitor) 20 mg PO QHS [facility] Last Admin: 08/01/19 21:58 Dose: 20 mg Documented by: Brimonidine Tartrate (Brimonidine 0.2% 5ml Bottle) 1 drop EACH EYE BID [facility] Last Admin: 08/01/19 21:58 Dose: 1 drop Documented by: Cholecalciferol (Vitamin D (25mcg)) 5,000 unit PO BID [facility] Last Admin: 08/01/19 21:57 Dose: 5,000 unit Documented by: Furosemide (Lasix) 40 mg IV BID@1000,1800 [facility] Last Admin: 08/01/19 18:38 Dose: 40 mg Documented by: Heparin Sodium (Beef Lung) () 50 units IV UD PRN PRN Reason: Port-a-Cath (VAD)Heparin Flush Heparin Sodium (Porcine) (Heparin Na) 5,000 unit SC Q12 [facility] Last Admin: 08/01/19 21:58 Dose: 5,000 unit Documented by: Sodium Chloride () 250 mls @ 15 mls/hr IV .[id number] PRN PRN Reason: Saline Flush Sodium Chloride () 250 mls @ 15 mls/hr IV .[id number] PRN PRN Reason: Additional IVPB Infusion Lactulose (Chronulac, Cephulac) 20 gm PO BID [facility] Last Admin: 08/01/19 21:59 Dose: 20 gm Documented by: Latanoprost (Xalatan Opthalmic) 1 drop EACH EYE QHS [facility] Last Admin: 08/01/19 21:59 Dose: 1 drop Documented by: Metoprolol Tartrate (Lopressor (Beta Brandyn)) 75 mg PO BID [facility] Last Admin: 08/01/19 21:57 Dose: 75 mg Documented by: Mirtazapine (Remeron) 7.5 mg PO QHS [facility] Last Admin: 08/01/19 21:57 Dose: 7.5 mg Documented by: Nutritional Formula (Lactose Free) (Ensure Clear) 120 ml PO 4X/DAY [facility] Last Admin: 08/01/19 21:59 Dose: Not Given Documented by: Ondansetron HCl (Zofran) 4 mg IV Q8H PRN PRN PRN Reason: NAUSEA/VOMITING Oxycodone HCl (Oxyir) 5 mg PO Q6H PRN PRN PRN Reason: Pain Score 6-10/10 Last Admin: 08/01/19 13:57 Dose: 5 mg Documented by: Polyethylene Glycol (Miralax) 17 gm PO DAILY [facility] Last Admin: 08/01/19 08:52 Dose: 17 gm Documented by: Ranolazine (Ranexa) 1,000 mg PO BID [facility] Last Admin: 08/01/19 21:57 Dose: 1,000 mg Documented by: Sacubitril/Valsartan (Entresto 49 Mg-51 Mg Tablet) 1 each PO BID [facility] Last Admin: 08/01/19 21:58 Dose: 1 each Documented by: Sodium Chloride () 10 - 40 ml IV UD PRN PRN Reason: SALINE FLUSH Last Admin: 08/01/19 18:38 Dose: 10 ml Documented by: Sodium Chloride (0.9% Nacl (Sterile) Posiflush) 10 - 40 ml IV UD PRN PRN Reason: Port access or dressing change Timolol Maleate (Timoptic) 1 drop EACH EYE BID [facility] Last Admin: 08/01/19 21:58 Dose: 1 drop Documented by: Clinical Impression(s) from Imaging Studies Chest X-Ray 08/01/19 11:30 IMPRESSION: Decrease in size of the right pleural effusion. There is no evidence of pneumothorax. Electronically Signed: Raj Solis, at 12:52 EDT Tel , Service support , Thoracentesis Ultrasound 08/01/19 14:31 IMPRESSION: Successful ultrasound-guided left thoracentesis. Electronically Signed: Raj Solis, at 0:55 EDT Tel , Service support , Chest X-Ray 08/01/19 15:20 IMPRESSION: There is decreased size of the left pleural effusion. There is no pneumothorax. Electronically Signed: Raj Solis, at 15:30 EDT Tel , Service support , Thoracentesis Ultrasound 08/01/19 19:53 IMPRESSION: Successful ultrasound-guided right thoracentesis. Electronically Signed: Raj Soils, at 12:54 EDT Tel , Service support , Medical Necessity - Tobacco Use Smoking Status: Never smoker Assessment/Plan All Active Problems (Last Reviewed 07/04/19 @ 13:[address] Nahid Hernandez MD) Fall (Acute) Encephalopathy (Acute) Seizure (Acute) Hypoxia (Acute) Pneumonia (Acute) Bilateral pleural effusion (Acute) Constipation (Acute) Declining functional status (Acute) History of coronary artery stent placement (Resolved 05/21/09) Acute on chronic systolic (congestive) heart failure (Acute) ARF (acute renal failure) (Resolved) Fracture of femoral neck, left (Resolved) Hypertensive emergency (Resolved) Injury of left shoulder and upper arm (Resolved) Pyelonephritis, acute (Resolved) Scalp laceration (Resolved) Chronic diastolic (congestive) heart failure (Ruled-out) RECOMMENDATIONS: 1. Cardiac optimization 2. Wean oxygen as tolerated. Walking oximetry prior to discharge 3. No pulmonary follow-up indicated unless requested 4. Consider cardiology evaluation if patient truly requests full CODE STATUS 5. Agree with diuretic therapy IMPRESSIONS: 1. Acute hypoxic respiratory insufficiency secondary to bilateral transudative pleural effusions By clinical suspicion for transudate etiology given echocardiogram findings. Laboratory analysis of pleural effusions confirms transudate etiology. Clinical suspicion for CHF as an etiology. Chest x-ray shows significant improvement in effusion without complications of pneumothorax. Wean oxygen as tolerated. Patient will need a walking oximetry prior to discharge. Pulmonary follow-up is likely not indicated unless patient has an oxygen requirement. 2. Acute on chronic combined CHF Patient was significantly depressed ejection fraction and diastolic dysfunction on echocardiogram. This was done recently and likely does not need to be repeated. Consider cardiology consultation for CHF optimization if patient truly wishes to be a full code. Patient does have multiple allergies that limit therapeutic options. Agree with diuretic therapy. BNP is severely elevated, likely from a protracted course with renal dysfunction more than complete decompensation given adequate blood pressure. 3. Fecal impaction/hypertension/CAD/glaucoma/seizure disorder/hyperlipidemia/failure to thrive/CKD stage IV Complicates care, management, recovery and prognosis. Likely okay to continue with baseline medications. Defer to hospitalist. Consider dietitian consultation for failure to thrive. Case management to evaluate for possible placement. Inpatient E&M: [id number] [facility] L2
[2019-08-02] MEDS: LIFITEGRAST 1 EACH DROPERETTE OP (09:15)
[2019-08-02] MEDS: Ensure Clear 120 ML Liquid PO ×2 (09:18→13:22)
[2019-08-02] MEDS: Polyethylene Glycol 3350 17 GM PACKET PO (09:20)
[2019-08-02] MEDS: BRIMONIDINE 0.2% 5ML BOTTLE 1 DRP EACH EYE (09:21)
[2019-08-02] MEDS: Lactulose 20 GM/30 ML UDC PO (09:23)
[2019-08-02] MEDS: SACUBITRIL/VALSARTAN 49-51 MG TABLET 1 EACH PO (09:24)
[2019-08-02] MEDS: Ranolazine 500 MG Tablet 1000 MG PO (09:26)
[2019-08-02] MEDS: Timolol 0.5% 5ML OPTH.BTL 1 DRP EACH EYE (09:28)
[2019-08-02] MEDS: Heparin Injection (Vial) 5,000 UNIT/ML VIAL 5000 UNIT SC (09:33)
[2019-08-02] MEDS: 0.9% Saline Lock 10 ML Syringe IV (09:36)
[2019-08-02] MEDS: Furosemide 40 MG/4 ML Vial IV (09:36)
--- NOTE | 2019-08-02 12:35 | PCM.PN.HOSP ---
Patient Problems: Active and Suspected Problems (Last Reviewed 07/04/19 @ 13:[address] Nahid Hernandez MD) Pneumonia (Acute) Bilateral pleural effusion (Acute) Constipation (Acute) Declining functional status (Acute) Reason for Visit: SOB Subjective: Pt with significant improvement of SOB after thora. She had significant shoulder pain after, however this is completely resolved today. SOB improved, still on some NC O2, however she does not use this at home. No significant LE edema. No CP. No fever/chills. Vitals/I&O's: Vital Signs Temp Pulse Resp BP Pulse Ox 97.8 F 84 18 94/42 L 92 08/02/19 09:10 08/02/19 11:00 08/02/19 09:10 08/02/19 09:25 08/02/19 10:40 Oxygen Flow Rate (L/min) [4] 2 Oxygen Flow Rate (L/min) [3] 2 Oxygen Flow Rate (L/min) [2] 2 Oxygen Flow Rate (L/min) [1 ( 2 Initial Baseline)] Oxygen Flow Rate (L/min) 1 Oxygen Delivery Method [4] Nasal Cannula Oxygen Delivery Method [3] Nasal Cannula Oxygen Delivery Method [2] Nasal Cannula Oxygen Delivery Method [1 ( Nasal Cannula Initial Baseline)] Oxygen Delivery Method Nasal Cannula Weight: 116 lb 6.465 oz Body Mass Index (BMI) 19.7 Intake and Output for Last 24 Hours 07/31/19 08/01/19 08/02/19 23:59 23:59 23:59 Intake Total 856.25 / 856.25 1280 / 1280 360 / 360 Output Total 1979 300 / 300 Balance 856.25 / 856.25 -700 / -700 60 / 60 General: Alert, Oriented x3, Cooperative HEENT: Atraumatic, PERRLA, EOMI, Normocephalic Neck: Supple, No JVD, Negative Carotid Bruits Lungs: Diminished, Rales - faint, LLL Cardiovascular: Regular rate, No murmurs Abdomen: Bowel Sounds Present, Soft, Non Tender Extremities: No edema, Capillary Refill Less than 3 Seconds Skin: No rashes, No breakdown Musculoskeletal: No Tenderness to Palpation of Joints or Extremities Neurological: Cranial nerves II-XII grossly intact Psych/Mental Status: Normal Affect, Appropriate, Alert and oriented to time, place, person, mood and affect Microbiology Past 72 Hours 08/01/19 11:45 Fluid - Thoracentesis Fluid Gram Stain - Final 08/01/19 11:45 Fluid - Thoracentesis Fluid Body Fluid Culture - Preliminary No growth-Final to follow 07/31/19 18:42 Mucosa - Nasopharyngeal Respiratory Panel (PCR) - Final 07/31/19 16:15 Urine, Random Streptococcus pneumoniae Antigen (M - Final 07/31/19 16:15 Urine, Random Legionella Antigen - Final Laboratory Results 08/01/19 11:45: Fluid Glucose 97 H, Fluid Total Protein 2.3, Fluid LDH 146 08/01/19 11:45: Fluid Source THORACENTESIS, Fluid Color LT YEL, Fluid Appearance CLEAR, Fluid WBC 1.366, Fluid RBC 170, Fluid Tot Cell Count 1.379 H, Fld Polynuclear WBCs # 1.115, Fld Polynuclear WBCs % 81.6, Fluid Mononuclear WBCs 0.251, Fld Mononuclear WBCs % 18.4, Fluid Neutrophils 85, Fluid Lymphocytes 1, Fluid Monocytes 13, Fld Mesothelial Cells 1, Fl Pathologist Comment May follow, Fluid Comment 2 SEE COMMENT 08/02/19 06:41: WBC 14.0 H, RBC 3.33 L, Hgb 10.9 L, Hct 36.0 L, MCV 108.1 H, MCH 32.7 H, MCHC 30.3 L, RDW Std Deviation 66.2 H, RDW Coeff of Myke 16.7 H, Plt Count 207, MPV 12.4 H, Immature Gran % (Auto) 0.400, Neut % (Auto) 83.9 H, Lymph % (Auto) 6.6 L, [place] % (Auto) 8.8, Eos % (Auto) 0.2, Baso % (Auto) 0.1, Absolute Neuts (auto) 11.7 H, Absolute Lymphs (auto) 0.92, Nucleated RBC % 0, Anisocytosis 1+ 08/02/19 06:41: Sodium 141, Potassium 4.6, Chloride 110 H, Carbon Dioxide 22.0, Anion Gap 9, BUN 58 H, Creatinine 2.45 H, Estim Creat Clear Calc 15.27, Est GFR (MDRD) Af Amer 24 L, Est GFR (MDRD) Non-Af 20 L, BUN/Creatinine Ratio 23.7 H, Glucose 78, Calcium 8.2 L Current Medications Acetaminophen (Tylenol) 650 mg PO Q6H PRN PRN PRN Reason: Pain Score 1-10/Temp > 100.7 F Last Admin: 08/02/19 03:38 Dose: 650 mg Documented by: Atorvastatin Calcium (Lipitor) 20 mg PO QHS [facility] Last Admin: 08/01/19 21:58 Dose: 20 mg Documented by: Brimonidine Tartrate (Brimonidine 0.2% 5ml Bottle) 1 drop EACH EYE BID [facility] Last Admin: 08/02/19 09:21 Dose: 1 drop Documented by: Cholecalciferol (Vitamin D (25mcg)) 5,000 unit PO BID [facility] Last Admin: 08/02/19 09:30 Dose: 5,000 unit Documented by: Furosemide (Lasix) 40 mg PO BID@1000,1800 [facility] Heparin Sodium (Beef Lung) () 50 units IV UD PRN PRN Reason: Port-a-Cath (VAD)Heparin Flush Heparin Sodium (Porcine) (Heparin Na) 5,000 unit SC Q12 [facility] Last Admin: 08/02/19 09:33 Dose: 5,000 unit Documented by: Sodium Chloride () 250 mls @ 15 mls/hr IV .[id number] PRN PRN Reason: Saline Flush Sodium Chloride () 250 mls @ 15 mls/hr IV .[id number] PRN PRN Reason: Additional IVPB Infusion Lactulose (Chronulac, Cephulac) 20 gm PO BID [facility] Last Admin: 08/02/19 09:23 Dose: 20 gm Documented by: Latanoprost (Xalatan Opthalmic) 1 drop EACH EYE QHS [facility] Last Admin: 08/01/19 21:59 Dose: 1 drop Documented by: Metoprolol Tartrate (Lopressor (Beta Brandyn)) 75 mg PO BID [facility] [place] Last Admin: 08/02/19 09:25 Dose: Not Given Documented by: Mirtazapine (Remeron) 7.5 mg PO QHS [facility] [place] Last Admin: 08/01/19 21:57 Dose: 7.5 mg Documented by: Nutritional Formula (Lactose Free) (Ensure Clear) 120 ml PO 4X/DAY [facility] [place] Last Admin: 08/02/19 09:18 Dose: 120 ml Documented by: Ondansetron HCl (Zofran) 4 mg IV Q8H PRN PRN PRN Reason: NAUSEA/VOMITING Oxycodone HCl (Oxyir) 5 mg PO Q6H PRN PRN PRN Reason: Pain Score 6-10/10 Last Admin: 08/01/19 13:57 Dose: 5 mg Documented by: Polyethylene Glycol (Miralax) 17 gm PO DAILY [facility] [place] Last Admin: 08/02/19 09:20 Dose: 17 gm Documented by: Ranolazine (Ranexa) 1,000 mg PO BID [facility] [place] Last Admin: 08/02/19 09:26 Dose: 1,000 mg Documented by: Sacubitril/Valsartan (Entresto 49 Mg-51 Mg Tablet) 1 each PO BID [facility] [place] Last Admin: 08/02/19 09:24 Dose: 1 each Documented by: Sodium Chloride () 10 - 40 ml IV UD PRN PRN Reason: SALINE FLUSH Last Admin: 08/02/19 09:36 Dose: 10 ml Documented by: Sodium Chloride (0.9% Nacl (Sterile) Posiflush) 10 - 40 ml IV UD PRN PRN Reason: Port access or dressing change Timolol Maleate (Timoptic) 1 drop EACH EYE BID [facility] [place] Last Admin: 08/02/19 09:28 Dose: 1 drop Documented by: STROKE Vital Signs/Narrative: Vital Signs Temp Pulse Resp BP Pulse Ox 08/02/19 11:00 84 08/02/19 10:40 92 08/02/19 09:25 82 94/42 L 08/02/19 09:10 97.8 F 82 18 94/42 L 96 Medical Necessity - Tobacco Use Smoking Status: Never smoker Assessment/Plan All Active Problems (Last Reviewed 07/04/19 @ 13:[address] Nahid Hernandez MD) Fall (Acute) Encephalopathy (Acute) Seizure (Acute) Hypoxia (Acute) Pneumonia (Acute) Bilateral pleural effusion (Acute) Constipation (Acute) Declining functional status (Acute) History of coronary artery stent placement (Resolved 05/21/09) Acute on chronic systolic (congestive) heart failure (Acute) ARF (acute renal failure) (Resolved) Fracture of femoral neck, left (Resolved) Hypertensive emergency (Resolved) Injury of left shoulder and upper arm (Resolved) Pyelonephritis, acute (Resolved) Scalp laceration (Resolved) Chronic diastolic (congestive) heart failure (Ruled-out) 1. Acute on chronic systolic CHF - lights criteria c/w transudate. Pna ruled out. With BUN/Cr increasing, will change lasix to PO. Attempt to wean o2. Still some leukocytosis, unclear etiology. BNP >5000. Pulmonary medicine following. -Echo 04/29/19 EF 20%, St1 diastolic dysfunction, regional wall abnormalities, 2+ MVI, 1+ TVI, PASP 36mmHg -F/u Cardiology as o/p -Tele with PVCs 2. Constipation - resolved. continue prn meds. 3. Indeterminate troponin - chronically elevated. 4. Hx RA and Sjogrens - uses humira. 5. Hx seizures - dcd on keppra in May. She was weaned off of this as o/p and no longer on. 6. Hx CAD, prior stent - continue home meds. Pt of Dr. Hernandez. 7. Hx glaucoma - continue home drops. 8. CKD IV - Cr trending up. Lasix to PO. DVT ppx: SCDs DC planning: TCU at [facility]. Pt follows with palliative care. This patient was seen by César Bates PA-C under the supervision of Dr. Riley.
--- NOTE | 2019-08-02 16:47 | PCM.EXTCARCO ---
- Diet 07/31/19 19:53 Diet: Cardiac/Low Cholesterol Food consistency:: Regular Liquid Consistency:: Regular/Thin Type of Dietary Supplement:: Diet Comments: 2 gm Na - Routine Orders/Code Status Suppository Type: Dulcolax 10mg Suppository Frequency: Daily PRN O2 Frequency: PRN Keep PO Greater than or Equal to (%): 89 Routine Lab Work: CBC - 7 days, BMP - 2 days, - - Chest Xray in 2 days Code Status: Full Code - Wound(s) L heel Wound Type: Pressure Injury Dressing Change: AntiMicrobial (Aquacel AG, etc) L flank Wound Type: Puncture R flank Wound Type: Puncture - Therapies Physical Therapy: Eval and Treat Occupational Therapy: Eval and Treat - Problem/Diagnosis (1) Acute on chronic systolic (congestive) heart failure Status: Acute Current Visit: No (2) Bilateral pleural effusion Status: Acute Current Visit: Yes (3) Constipation Status: Acute Current Visit: Yes (4) Debility Status: Chronic Current Visit: No (5) Hypertension Status: Chronic Current Visit: No (6) Coronary artery disease Status: Chronic Current Visit: No (7) Glaucoma Status: Chronic Current Visit: No (8) Anxiety Status: Chronic Current Visit: No (9) Seizure Status: Chronic Current Visit: No (10) Essential (primary) hypertension Status: Chronic Current Visit: No (11) Hyperlipemia Status: Chronic Current Visit: No (12) Iron deficiency anemia Status: Chronic Current Visit: No - Allergies/Procedures Done in Hospital Allergies/Adverse Reactions: Allergies adalimumab [From Humira] Allergy (Verified 07/31/19 14:32) Rash ciprofloxacin HCl [From Cipro] Allergy (Verified 07/31/19 14:32) Unknown clavulanic acid Allergy (Verified 07/31/19 14:32) PT UNSURE OF REACTION doxazosin Allergy (Verified 07/31/19 14:32) Other hydroxyzine [From Vistaril] Allergy (Verified 07/31/19 14:32) Other latex Allergy (Verified 07/31/19 14:32) Rash levofloxacin [From Levaquin] Allergy (Verified 07/31/19 14:32) Unknown lisinopril Allergy (Verified 07/31/19 14:32) Other COUGH Methotrexate Analogues Allergy (Verified 07/31/19 14:32) Hives naproxen Allergy (Verified 07/31/19 14:32) Unknown potassium clavulanate [From Augmentin] Allergy (Verified 07/31/19 14:32) Unknown Sulfa (Sulfonamide Antibiotics) Allergy (Verified 07/31/19 14:32) Unknown amlodipine Adverse Reaction (Severe, Verified 07/31/19 14:32) edema haloperidol lactate [From Haldol] Adverse Reaction (Unknown, Verified 07/31/19 14:32) agitation amoxicillin trihydrate [From Augmentin] Adverse Reaction (Verified 07/31/19 14:32) Upset Stomach hydromorphone HCl [From Dilaudid] Adverse Reaction (Verified 07/31/19 14:32) Other HALLUCINATIONS hydroxychloroquine sulfate [From Plaquenil] Adverse Reaction (Verified 07/31/19 14:32) Other VISION ISSUES Procedures: Thoracentesis - Type of Care/Length of Stay Estimated LOS: Convalescent Care Less Than 30 days Type of Care Needed: Skilled Rehab Potential: Fair Prognosis: Fair - Additional Orders/Day of Discharge Day of Discharge: 08/02/19 - Dietary and Speech Recommendations Dietitian Recommendations/Changes: Will d/c ONS at meals and provide only at [facility]. Will change diet to Cardiac / low sodium d/t hx CKD3, CHF and edema - Follow Up Care Primary Care Physician: Ted Georges Chi, MD [Primary Care Provider] - Please follow up with your Primary Care Physician in: 1 week Please Follow Up With: Nahid Hernandez MD When: 3-4 weeks
--- NOTE | 2019-08-02 16:57 | DS.PCM_ITS ---
Discharge Date and Diagnosis - Problem List Patient Problems: Active and Suspected Problems (Last Reviewed 07/04/19 @ 13:[address] Nahid Hernandez MD) Pneumonia (Acute) Bilateral pleural effusion (Acute) Constipation (Acute) Declining functional status (Acute) Constipation (Acute) Date of Admission: 07/31/19 Date of Discharge: 08/02/19 - Primary Discharge Diagnosis Active and Suspected Problems (Last Reviewed 07/04/19 @ 13:[address] Nahid Hernandez MD) Acute on chronic systolic CHF, BL pleural effusions - transudative EF20% Pneumonia ruled out Constipation resolved Indeterminate trop;/onin CKDIV Hx RA/Sjogrens Hx seizures CAD prior stent Hx Glaucoma - Secondary Discharge Diagnosis Chronic Problems (Last Reviewed 07/04/19 @ 13:[address] Nahid Hernandez MD) Debility (Chronic) Acute on chronic kidney failure (Chronic) Acute on chronic systolic and diastolic heart failure, NYHA class 4 (Chronic) Dysphagia (Chronic) Fecal impaction of colon (Chronic) Hypertension (Chronic) Coronary artery disease (Chronic) Hypokalemia (Chronic) Glaucoma (Chronic) Allergic rhinitis (Chronic) Dry eye (Chronic) Claustrophobia (Chronic) Anxiety (Chronic) Seizure (Chronic) Seizure disorder (Chronic) Acute on chronic systolic and diastolic heart failure, NYHA class 1 (Chronic) CHF (congestive heart failure) (Chronic) Lower extremity edema (Chronic) Dyspnea (Chronic) Atherosclerotic heart disease of [place] coronary artery without angina pectoris (Chronic) History of non-ST elevation myocardial infarction (NSTEMI) (Chronic 04/2019) 05/2018, 03/2019, 04/2019 Essential (primary) hypertension (Chronic) Hyperlipemia (Chronic) 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 Distended inferior vena cava and hepatic veins. Generalized anasarca. Small amount of pelvic free fluid/ascites. Stable pancreatic atrophy. Mild bilateral renal atrophy. Nonobstructing renal stones and vascular calcifications without hydronephrosis or ureteral stones. Limited visualization of the bladder and ureter secondary to bilateral total hip hardware. Substantial solid stool in the colon from the right colon to the splenic flexure with a stool-filled loop of transverse colon extending into the pelvis. Nondistended left and distal colon. Potential high impaction. Nonvisualized appendix. Negative for pelvic mass. Recent healing fracture of the left inferior pubic ramus, left superior pubic ramus and a vertical left sacral fracture. Old fractures of the right superior and inferior pubic rami present on prior exam of 2017. Subacute mild superior endplate compression deformity of L3 probably a relatively recent healing fracture. Definitely not present on prior exam of 2017. RAD/Chest 1 View (Portable) IMPRESSION: Persistent bilateral large pleural effusions with bibasilar compressive atelectasis and/or concomitant infiltrates appearing increased from prior chest exam of May 31, 2019. Port-A-Cath terminates in the right atrium. RAD/Chest Insp/Exp 2 View IMPRESSION: Decrease in size of the right pleural effusion. There is no evidence of pneumothorax. Left Thoracentesis: 800 cc removed Right Thoracentesis: 780 cc removed RAD/Chest Insp/Exp 2 View IMPRESSION: There is decreased size of the left pleural effusion. There is no pneumothorax. Consultation: Pulmonology - Suhail Operations: None Procedures: Thoracentesis Summary of Care Provided: Hospital Course: The patient is a 79 year old F with pmhx notable for systolic CHF with EF 20%, CAD prior stent, CKDIV who presented to the ER with c/o constipation and SOB. She was SOB with bilateral pleural effusions, BNP >5000. She had an indeter minate troponin however it was not different than indeterminate levels on multiple prior tests. She had leukocytosis and a nonproductive cough. She was admitted to the PCU for acute on chronic systolic CHF vs pnuemonia, and constipation. She was started on empiric abx with azithromycin and rocephin. She was given IV lasix. Pulmonary medicine was consulted. She went for diagnostic and therapeutic thoracentesis the following day. The fluid was transudative. Pneumonia was ruled out and Abx were discontinued. She had no fever. She did continue to have an elevated WBC at 14k but had no obvious source of infection. 780 cc were removed from the right and 800 cc removed from the left. Her breathing improved She had an echo 04/2019 so a repeat was deferred. She had an EF of 20% with hypokinesis, stage 1 diastolic dysfunction, 2+ MVI, 1+ TVI, and PASP of 36 mmHg. She was kept overnight and given more IV lasix. Creatinine bumped the following day and lasix was switched back to PO. She was given la ctulose for constipation and had full resolution. She had reported debility and needing extra help at home on admission. She worked with [facility] and qualified for SNF. She will need a BMP in 2 days and a repeat CXR in 2 days. She will need follow up with cardiology in 3-4 weeks and with her PCP in 1 week. This patient was seen by César Bates PA-C under the supervision of Dr. Riley. [] Patient Problems: Active and Suspected Problems (Last Reviewed 07/04/19 @ 13:[address] Nahid Hernandez MD) Pneumonia (Acute) Bilateral pleural effusion (Acute) Constipation (Acute) Declining functional status (Acute) Constipation (Acute) - Physical Exam Vitals/I&O's: Vital Signs Temp Pulse Resp BP Pulse Ox 98.0 F 85 18 104/53 L 97 08/02/19 15:10 08/02/19 15:25 08/02/19 15:10 08/02/19 15:10 08/02/19 15:10 Oxygen Flow Rate (L/min) [4] 2 Oxygen Flow Rate (L/min) [3] 2 Oxygen Flow Rate (L/min) [2] 2 Oxygen Flow Rate (L/min) [1 ( 2 Initial Baseline)] Oxygen Flow Rate (L/min) 1 Oxygen Delivery Method [4] Nasal Cannula Oxygen Delivery Method [3] Nasal Cannula Oxygen Delivery Method [2] Nasal Cannula Oxygen Delivery Method [1 ( Nasal Cannula Initial Baseline)] Oxygen Delivery Method Nasal Cannula Weight: 116 lb 6.465 oz Body Mass Index (BMI) 19.7 Intake and Output for Last 24 Hours 07/31/19 08/01/19 08/02/19 23:59 23:59 23:59 Intake Total 856.25 / 856.25 1280 / 1280 360 / 360 Output Total 1979 / 1979 300 / 300 Balance 856.25 / 856.25 -700 / -700 60 / 60 General: Alert, Oriented x3, Cooperative HEENT: Atraumatic, PERRLA, EOMI, Normocephalic Neck: Supple, No JVD, Negative Carotid Bruits Lungs: Normal air movement, Rales - faint rales LLL base Cardiovascular: Regular rate, No murmurs Abdomen: Bowel Sounds Present, Soft, Non Tender Extremities: No edema, Capillary Refill Less than 3 Seconds Skin: No rashes, No breakdown Musculoskeletal: No Tenderness to Palpation of Joints or Extremities Neurological: Cranial nerves II-XII grossly intact Psych/Mental Status: Normal Affect, Appropriate, Alert and oriented to time, place, person, mood and affect Microbiology Past 72 Hours 08/01/19 11:45 Fluid - Thoracentesis Fluid Gram Stain - Final 08/01/19 11:45 Fluid - Thoracentesis Fluid Body Fluid Culture - Preliminary No growth-Final to follow 07/31/19 18:42 Mucosa - Nasopharyngeal Respiratory Panel (PCR) - Final 07/31/19 16:15 Urine, Random Streptococcus pneumoniae Antigen (M - Final 07/31/19 16:15 Urine, Random Legionella Antigen - Final Laboratory Results 08/02/19 06:41: WBC 14.0 H, RBC 3.33 L, Hgb 10.9 L, Hct 36.0 L, MCV 108.1 H, MCH 32.7 H, MCHC 30.3 L, RDW Std Deviation 66.2 H, RDW Coeff of Myke 16.7 H, Plt Count 207, MPV 12.4 H, Immature Gran % (Auto) 0.400, Neut % (Auto) 83.9 H, Lymph % (Auto) 6.6 L, [place] % (Auto) 8.8, Eos % (Auto) 0.2, Baso % (Auto) 0.1, Absolute Neuts (auto) 11.7 H, Absolute Lymphs (auto) 0.92, Nucleated RBC % 0, Anisocytosis 1+ 08/02/19 06:41: Sodium 141, Potassium 4.6, Chloride 110 H, Carbon Dioxide 22.0, Anion Gap 9, BUN 58 H, Creatinine 2.45 H, Estim Creat Clear Calc 15.27, Est GFR (MDRD) Af Amer 24 L, Est GFR (MDRD) Non-Af 20 L, BUN/Creatinine Ratio 23.7 H, Glucose 78, Calcium 8.2 L Current Medications Acetaminophen (Tylenol) 650 mg PO Q6H PRN PRN PRN Reason: Pain Score 1-10/Temp > 100.7 F Last Admin: 08/02/19 03:38 Dose: 650 mg Documented by: Atorvastatin Calcium (Lipitor) 20 mg PO QHS [facility] Last Admin: 08/01/19 21:58 Dose: 20 mg Documented by: Brimonidine Tartrate (Brimonidine 0.2% 5ml Bottle) 1 drop EACH EYE BID [facility] Last Admin: 08/02/19 09:21 Dose: 1 drop Documented by: Cholecalciferol (Vitamin D (25mcg)) 5,000 unit PO BID [facility] Last Admin: 08/02/19 09:30 Dose: 5,000 unit Documented by: Furosemide (Lasix) 40 mg PO BID@1000,1800 [facility] Heparin Sodium (Beef Lung) () 50 units IV UD PRN PRN Reason: Port-a-Cath (VAD)Heparin Flush Heparin Sodium (Porcine) (Heparin Na) 5,000 unit SC Q12 [facility] Last Admin: 08/02/19 09:33 Dose: 5,000 unit Documented by: Sodium Chloride () 250 mls @ 15 mls/hr IV .[id number] PRN PRN Reason: Saline Flush Sodium Chloride () 250 mls @ 15 mls/hr IV .[id number] PRN PRN Reason: Additional IVPB Infusion Lactulose (Chronulac, Cephulac) 20 gm PO BID [facility] Last Admin: 08/02/19 09:23 Dose: 20 gm Documented by: Latanoprost (Xalatan Opthalmic) 1 drop EACH EYE QHS [facility] Last Admin: 08/01/19 21:59 Dose: 1 drop Documented by: Metoprolol Tartrate (Lopressor (Beta Brandyn)) 75 mg PO BID [facility] Last Admin: 08/02/19 09:25 Dose: Not Given Documented by: Mirtazapine (Remeron) 7.5 mg PO QHS [facility] Last Admin: 08/01/19 21:57 Dose: 7.5 mg Documented by: Nutritional Formula (Lactose Free) (Ensure Clear) 120 ml PO 4X/DAY [facility] Last Admin: 08/02/19 13:22 Dose: 120 ml Documented by: Ondansetron HCl (Zofran) 4 mg IV Q8H PRN PRN PRN Reason: NAUSEA/VOMITING Oxycodone HCl (Oxyir) 5 mg PO Q6H PRN PRN PRN Reason: Pain Score 6-10/10 Last Admin: 08/01/19 13:57 Dose: 5 mg Documented by: Polyethylene Glycol (Miralax) 17 gm PO DAILY [facility] Last Admin: 08/02/19 09:20 Dose: 17 gm Documented by: Ranolazine (Ranexa) 1,000 mg PO BID [facility] Last Admin: 08/02/19 09:26 Dose: 1,000 mg Documented by: Sacubitril/Valsartan (Entresto 49 Mg-51 Mg Tablet) 1 each PO BID [facility] Last Admin: 08/02/19 09:24 Dose: 1 each Documented by: Sodium Chloride () 10 - 40 ml IV UD PRN PRN Reason: SALINE FLUSH Last Admin: 08/02/19 09:36 Dose: 10 ml Documented by: Sodium Chloride (0.9% Nacl (Sterile) Posiflush) 10 - 40 ml IV UD PRN PRN Reason: Port access or dressing change Timolol Maleate (Timoptic) 1 drop EACH EYE BID [facility] Last Admin: 08/02/19 09:28 Dose: 1 drop Documented by: Discharge Diet: Low fat/ Low Cholesterol, 2000 mg Sodium Diet Discharge Activity: Return to Normal Activity Home Medications: Medications to take at Discharge atorvastatin 20 mg tablet 20 mg PO QHS 06/21/18 Brimonidine Tartrate/Timolol [Combigan Eye Drops] 1 drp EACH EYE BID 02/13/19 Latanoprost 1 drp EACH EYE QHS 02/13/19 Lifitegrast [Xiidra] 1 ea OP BID 04/29/19 Nitroglycerin [Nitrostat] 0.4 mg SUBLINGUAL Q5M PRN 05/27/19 Metoprolol Tartrate [Lopressor (beta brandyn)] 75 mg PO BID #0 06/03/19 Furosemide [Lasix] 40 mg PO BID@1000,1800 #60 tab 06/11/19 ranolazine 500 mg tablet,extended release,12 hr 500 mg PO BID #180 tab 07/23/19 Calcium/D3/Mag Ox/Tumbler Plater/Daniel/Zn [Caltrate+D3 Plus Mineral Minis] 1 tab PO BID 07/31/19 Cholecalciferol (Vitamin D3) [Vitamin D3] 5,000 unit PO BID 07/31/19 Menthol/Lanolin/Calamine/Znox [Calmoseptine Ointment] 1 applic TOPICAL BID 07/31/19 Mirtazapine [Remeron] 7.5 mg PO QHS 07/31/19 Sacubitril/Valsartan 49-51 mg [Entresto 49 mg-51 mg Tablet] 1 tab PO BID 07/31/19 Acetaminophen [Tylenol Tablet] 650 mg PO Q6H PRN PRN tab 08/02/19 Ensure Clear 120 ml PO 4X/DAY liquid 08/02/19 Lactulose [Chronulac] 20 gm PO BID udc 08/02/19 Polyethylene Glycol 3350 [Miralax] 17 gm PO DAILY packet 08/02/19 Potassium Chloride [K-Dur] 20 meq PO DAILY #30 tab 08/02/19 Following Prescrptions Were Given to Patient: Potassium Chloride [K-Dur] 20 meq PO DAILY #30 tab Primary Care Physician: Ted Georges Chi, MD [Primary Care Provider] - Please follow up with your Primary Care Physician in: 1 week Please Follow Up With: Nahid Hernandez MD When: 3-4 weeks Patient Instructions: Thoracentesis Disposition: Long Term facility Minutes spent on discharge:: 35 Patient Condition:: Stable Medical Necessity - Tobacco Use Smoking Status: Never smoker Meaningful Use Info Meaningful Use Diagnoses (Choose all that apply): CHF - CHF VALENTE/ARB ordered at discharge?: Yes Documented LVEF (%): 20
[2019-08-02] MEDS: Furosemide 40 MG Tablet PO (17:16)
--- NOTE | 2019-08-02 17:28 | NURSING ---
This RN called to TCU to give report for pt transfer. TCU will call back when ready to take report.
--- NOTE | 2019-08-02 18:05 | NURSING ---
Report given to TCU nurse in preparation for pt transfer.
[2019-08-04 10:22] LABS: Pathologist Comment/Body Fluid Reviewed
== END 2019-08-02 18:13 | disposition skilled nursing facility (03) | DRG 291 ==
LOC: ED 19:20 → PCU 20:01
PROVIDERS: Physician Assistant; Admitting Provider Family Medicine; Emergency Provider Emergency Medicine; PCP Family Medicine Geriatric Medicine; Visit Provider Internal Medicine
DX: I13.0 Hypertensive heart and chronic kidney disease with heart failure and stage 1 through stage 4 chronic kidney disease, or unspecified chronic kidney disease (principal); I50.43 Acute on chronic combined systolic (congestive) and diastolic (congestive) heart failure; N18.4 Chronic kidney disease, stage 4 (severe); J91.8 Pleural effusion in other conditions classified elsewhere; R09.02 Hypoxemia; K56.41 Fecal impaction; R62.7 Adult failure to thrive; G40.909 Epilepsy, unspecified, not intractable, without status epilepticus; I25.10 Atherosclerotic heart disease of native coronary artery without angina pectoris; D50.9 Iron deficiency anemia, unspecified; E78.5 Hyperlipidemia, unspecified; R13.10 Dysphagia, unspecified; H40.9 Unspecified glaucoma; M06.9 Rheumatoid arthritis, unspecified; M35.00 Sjogren syndrome, unspecified; G62.9 Polyneuropathy, unspecified; R29.6 Repeated falls; F41.9 Anxiety disorder, unspecified; Z79.899 Other long term (current) drug therapy; I25.2 Old myocardial infarction; Z95.5 Presence of coronary angioplasty implant and graft; Z96.643 Presence of artificial hip joint, bilateral
CPT/HCPCS: 32555; 36415; 36591; 71045; 71046; 74176; 80048; 80053; 81001; 82945; 83615; 83690; 83880; 84156; 84157; 84484; 85025; 85610; 85730; 87070; 87075; 87205; 87449; 87633; 88108; 88305; 88313; 89050; 93005; 96360; 96361; 97110; 97162; 97166; 97530; 97802; 99251; 99285; 99406; J7030; A4216; G0463; J0696; J1940

== ENCOUNTER 2019-08-02 18:22 | Inpatient (IN) | payer MEDICARE, SELFPAY ==
[2019-07-31 20:03] VITALS: BMI 19.7
[2019-08-02 18:31] VITALS: BP 114/55; PULSE 95; RESP 18; TEMP 36.8
--- NOTE | 2019-08-02 19:41 | HP.PCM_ITS ---
Problem List (1) Chronic systolic (congestive) heart failure Status: Chronic (2) Pleural effusion Status: Acute (3) Appetite loss Status: Chronic (4) Debility Status: Acute (5) Fecal impaction of colon Status: Acute (6) Hypertension Status: Chronic (7) Coronary artery disease Status: Chronic Qualifiers: (8) Glaucoma Status: Chronic (9) Dry eye Status: Chronic (10) Hyperlipemia Status: Chronic Qualifiers: History of Present Illness Date of Admission: 08/02/19 Chief Complaint: Here for rehabilitation, strengthening, prior to disposition determination. The patient is a 79 year old Female with below past medical history presented to [facility] Emergency Department 07/31/2019 with constipation. 07/31/2019 CT abdomen/pelvis showed bilateral large pleural effusion, superimposed infiltrates, distended inferior vena cava, hepatic veins, anasarca. Stool impaction right colon to splenic flexure. Weakness, constipation despite Golytely. IV antibiotics, soap suds enema given. 07/31/2019 Admit to Hospital. Miralax, soap suds enema for constipation. PT/OT for deconditioning. IV Lasix twice daily for chronic systolic congestive heart failure. Rocephin, Zithromax for pneumonia. 08/01/2019 Dr. Jang recommended thoracentesis. Wean Oxygen. Stop Antibiotics. Continue diuresis. 08/01/2019 Thoracentesis removed 780ML fluid. 08/02/2019 Pleura fluid transudate. Pneumonia ruled out. Change Lasix to PO. Constipation resolved. 08/02/2019 Admit to TCU with debility, here for rehabilitation, strengthening, prior to disposition determination. Recently, prior to TCU discharge, resident/family offered [facility]iary care facility, assisted living facility on discharge, but resident/family chose to discharge home alone. Past Medical History Past Medical History (Chronic Problems): Chronic Problems (Last Reviewed 07/04/19 @ 13:[address] Nahid Hernandez MD) Acute on chronic kidney failure (Chronic) Acute on chronic systolic and diastolic heart failure, NYHA class 4 (Chronic) Dysphagia (Chronic) Hypertension (Chronic) Coronary artery disease (Chronic) Hypokalemia (Chronic) Glaucoma (Chronic) Allergic rhinitis (Chronic) Dry eye (Chronic) Claustrophobia (Chronic) Anxiety (Chronic) Seizure (Chronic) Seizure disorder (Chronic) Acute on chronic systolic and diastolic heart failure, NYHA class 1 (Chronic) Chronic systolic (congestive) heart failure (Chronic) Appetite loss (Chronic) CHF (congestive heart failure) (Chronic) Lower extremity edema (Chronic) Dyspnea (Chronic) Atherosclerotic heart disease of [place] coronary artery without angina pectoris (Chronic) History of non-ST elevation myocardial infarction (NSTEMI) (Chronic 04/2019) 05/2018, 03/2019, 04/2019 Essential (primary) hypertension (Chronic) Hyperlipemia (Chronic) 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) I45.2 Iron deficiency anemia (Chronic) D50.9 Recurrent falls (Chronic) R29.6 Anemia D64.9 Chronic kidney disease, stage 3 (moderate) N18.3 Chronic renal insufficiency N18.9 Closed fracture of left inferior pubic ramus S32.592A History of Sjogren's disease Z87.39 Rheumatoid arthritis M06.9 ARF (acute renal failure) (Resolved) GI bleed K92.2 Pleural effusion, left J90 Syncope and collapse R55 Chronic diastolic (congestive) heart failure (Ruled-out) I50.32 Diastolic dysfunction (Inactive) I51.9 Left ventricular hypertrophy (Inactive) I51.7 Allergies adalimumab [From Humira] Allergy (Verified 07/31/19 14:32) Rash ciprofloxacin HCl [From Cipro] Allergy (Verified 07/31/19 14:32) Unknown clavulanic acid Allergy (Verified 07/31/19 14:32) PT UNSURE OF REACTION doxazosin Allergy (Verified 04/16/20 14:32) Other hydroxyzine [From Vistaril] Allergy (Verified 07/31/19 14:32) Other latex Allergy (Verified 07/31/19 14:32) Rash levofloxacin [From Levaquin] Allergy (Verified 07/31/19 14:32) Unknown lisinopril Allergy (Verified 07/31/19 14:32) Other COUGH Methotrexate Analogues Allergy (Verified 07/31/19 14:32) Hives naproxen Allergy (Verified 07/31/19 14:32) Unknown potassium clavulanate [From Augmentin] Allergy (Verified 07/31/19 14:32) Unknown Sulfa (Sulfonamide Antibiotics) Allergy (Verified 07/31/19 14:32) Unknown amlodipine Adverse Reaction (Severe, Verified 07/31/19 14:32) edema haloperidol lactate [From Haldol] Adverse Reaction (Unknown, Verified 07/31/19 14:32) agitation amoxicillin trihydrate [From Augmentin] Adverse Reaction (Verified 07/31/19 14:32) Upset Stomach hydromorphone HCl [From Dilaudid] Adverse Reaction (Verified 07/31/19 14:32) Other HALLUCINATIONS hydroxychloroquine sulfate [From Plaquenil] Adverse Reaction (Verified 07/31/19 14:32) Other VISION ISSUES Home Medications: Ambulatory Orders Medication Instructions Recorded atorvastatin 20 mg tablet 20 mg PO QHS 06/21/18 Brimonidine Tartrate/Timolol 1 drp EACH EYE BID 02/13/19 [Combigan Eye Drops] Latanoprost 1 drp EACH EYE QHS 02/13/19 Lifitegrast [Xiidra] 1 ea OP BID 04/29/19 Nitroglycerin [Nitrostat] 0.4 mg SUBLINGUAL Q5M PRN 05/27/19 Metoprolol Tartrate [Lopressor 75 mg PO BID #0 06/03/19 (beta brandyn)] Furosemide [Lasix] 40 mg PO BID@1000,1800 #60 tab 06/11/19 ranolazine 500 mg tablet,extended 500 mg PO BID #180 tab 07/23/19 release,12 hr Calcium/D3/Mag Ox/[employer] Ax Consultant/Daniel/Zn 1 tab PO BID 07/31/19 [Caltrate+D3 Plus Mineral Minis] Cholecalciferol (Vitamin D3) 5,000 unit PO BID 07/31/19 [Vitamin D3] Menthol/Lanolin/Calamine/Znox 1 applic TOPICAL BID 07/31/19 [Calmoseptine Ointment] Mirtazapine [Remeron] 7.5 mg PO QHS 07/31/19 Sacubitril/Valsartan 49-51 mg 1 tab PO BID 07/31/19 [Entresto 49 mg-51 mg Tablet] Acetaminophen [Tylenol Tablet] 650 mg PO Q6H PRN PRN tab 08/02/19 Ensure Clear 120 ml PO 4X/DAY 08/02/19 Lactulose [Chronulac] 20 gm PO BID 08/02/19 Polyethylene Glycol 3350 [Miralax] 17 gm PO DAILY 08/02/19 Potassium Chloride [K-Dur] 20 meq PO DAILY 08/02/19 Surgical History: Surgical History (Last Reviewed 07/04/19 @ 13:[address] Nahid Hernandez MD) History of coronary artery stent placement (Resolved) Onset Date: 05/21/09 Z95.5 PCI-NIGHAT-RCA w/ 2.5 x 28 mm Promus Stent x 2, NIGHAT-Ramus w/ 2.25 x 20 Taxus Stent 05/21/2009 History of carpal tunnel release Z98.890 History of left heart catheterization Onset Date: 06/07/18 Z98.890 History of left hip replacement Z96.642 History of right hip hemiarthroplasty Z96.641 Surgical History: angioplasty - Cardiac stent., total hip arthroplasty - Bilateral, - - Carpal tunnel surgery. Psychiatric History: Anxiety PATIENT SERVICES CLERK History: No pertinent PATIENT SERVICES CLERK history Lives: Alone Smoking Status: Never smoker Tobacco Use: Non-smoker Alcohol: None Drugs: None - *Family History Paternal Family History: Family History (Last Reviewed 07/04/19 @ 13:[address] Nahid Hernandez MD) Father No problems noted. History Items: Heart Disease Maternal Family History: Family History (Last Reviewed 07/04/19 @ 13:[address] Nahid Hernandez MD) Father No problems noted. History Items: Cancer - Mother with history of breast cancer. Review of Systems Constitutional: Denies: Chills, Fever, Weight Change HEENT: Denies: Head Aches, Sinus Congestion, Sinus Drainage Cardiovascular: Denies: Chest Pain, Palpitations Respiratory: Denies: Cough, Shortness of breath at rest, Sputum production Gastrointestinal: Denies: Abdominal Pain, Nausea, Vomiting Genitourinary: Denies: Dysuria Musculoskeletal: Denies: Joint Pain, Joint Tenderness Skin: Denies: Rash, Wounds Neurological: Denies: Numbness, Tingling, Focal weakness Psychiatric: Denies: Anxiety, Depression, Homicidal Ideations, Suicidal Ideations Hematologic/ Lymphatic: Denies: Easy Bruising, Easy Bleeding VTE Information - Inpt Only VTE Present on Admission: No VTE Mechan Device Prophylaxis: Knee High ELLIS Hose VTE Pharm Prophylaxis ordered?: No Reason prophylaxis not ordered:: Medical Contraindication Patient Problems: Active and Suspected Problems (Last Reviewed 07/04/19 @ 13:[address] Nahid Hernandez MD) Pleural effusion (Acute) - Physical Exam Vitals/I&O's: Vital Signs Temp Pulse Resp BP 98.2 F 95 18 114/55 L 08/02/19 18:31 08/02/19 18:31 08/02/19 18:31 08/02/19 18:31 Body Mass Index (BMI) 19.7 General: Alert, Oriented x3, Cooperative HEENT: Atraumatic, PERRLA, EOMI, Normocephalic Neck: Supple, No JVD, Negative Carotid Bruits Lungs: Clear to auscultation, Normal air movement, Diminished - Bases. Cardiovascular: Regular rate, No murmurs Abdomen: Bowel Sounds Present, Soft, Non Tender Extremities: No edema, Capillary Refill Less than 3 Seconds Skin: No rashes, No breakdown Musculoskeletal: No Tenderness to Palpation of Joints or Extremities Neurological: Cranial nerves II-XII grossly intact Psych/Mental Status: Normal Affect, Appropriate Current Medications Acetaminophen (Tylenol) 650 mg PO Q6H PRN PRN PRN Reason: Pain Score 1-10/Temp > 100.7 F Atorvastatin Calcium (Lipitor) 20 mg PO QHS [facility] Brimonidine Tartrate (Brimonidine 0.2% 5ml Bottle) 1 drop EACH EYE BID [facility] Calamine/Phenol (Calmoseptine Ointment) 1 applic TOPICAL BID [facility]; Protocol Cholecalciferol (Vitamin D (25mcg)) 5,000 unit PO BID [facility] Furosemide (Lasix) 40 mg PO BID@1000,1800 [facility] Lactulose (Chronulac, Cephulac) 20 gm PO BID [facility] Latanoprost (Xalatan Opthalmic) 1 drop EACH EYE QHS [facility] Metoprolol Tartrate (Lopressor (Beta Brandyn)) 75 mg PO BID [facility] Mirtazapine (Remeron) 7.5 mg PO QHS [facility] Nitroglycerin (Nitrostat) 0.4 mg SUBLINGUAL Q5M PRN PRN Reason: CARDIAC/CHEST PAIN Non-Formulary Medication (Calcium/D3/Mag Ox/[employer] Dynamics Ax Consultant/Daniel/Zn [Caltrate+D3 Plus Mineral Minis]) 1 tab PO BID [facility] Nutritional Formula (Lactose Free) (Ensure Clear) 120 ml PO 4X/DAY [facility] Polyethylene Glycol (Miralax) 17 gm PO DAILY [facility] Potassium Chloride (K-Dur) 20 meq PO DAILY [facility] Ranolazine (Ranexa) 500 mg PO BID [facility] Sacubitril/Valsartan (Entresto 49 Mg-51 Mg Tablet) 1 each PO BID [facility] Timolol Maleate (Timoptic) 1 drop EACH EYE BID [facility] Tuberculin PPD (Tubersol, Aplisol, Ppd) 5 tu ID X1 ONE Stop: 08/03/19 10:01 Tuberculin PPD (Tubersol, Aplisol, Ppd) 5 tu ID X1 ONE Stop: 08/10/19 10:01 Assessment/Plan All Active Problems (Last Reviewed 07/04/19 @ 13:[address] Nahid Hernandez MD) Debility (Acute) Fall (Acute) Encephalopathy (Acute) Fecal impaction of colon (Acute) Hypoxia (Acute) Pneumonia (Acute) Bilateral pleural effusion (Acute) Constipation (Acute) Declining functional status (Acute) Constipation (Acute) Pleural effusion (Acute) History of coronary artery stent placement (Resolved 05/21/09) Acute on chronic systolic (congestive) heart failure (Acute) ARF (acute renal failure) (Resolved) Fracture of femoral neck, left (Resolved) Hypertensive emergency (Resolved) Injury of left shoulder and upper arm (Resolved) Pyelonephritis, acute (Resolved) Scalp laceration (Resolved) Chronic diastolic (congestive) heart failure (Ruled-out) 79 year old female with below past medical history hospitalized for fecal impaction of colon, complicated by pleural effusion requiring thoracentesis, pneumonia ruled out, admitted to TCU with debility, here for rehabilitation, strengthening, prior to disposition determination. * Debility - PT/OT. * Pain - Tylenol 1000MG Q6H PRN pain (1-10). * Bowel - Miralax 17GM daily, Lactulose 20GM BID. * Adult immunization - Administer Prevnar 13, Pneumovax 23, Fluzone as appropriate. * DVT prophylaxis - Hold, history of anemia. * Hyperlipidemia - Atorvastatin 20MG QHS. * Glaucoma - Brimonidine 0.2% 1GTT OU BID, Xalatan 0.005% 1GTT OU QHS, Timoptic 0.3% 1GTT OU BID. * Nutrition - Ensure Clear 120ML 4x/day. * Chronic systolic congestive heart failure - Metoprolol 75MG BID, Entresto 49/51MG BID (97/103MG BID intolerable hypotension), Lasix 40MG BID. * Coronary Artery Disease - Metoprolol 75MG BID, Ranexa 500MG BID, NTG 0.4MG Q5M PRN. * Dry Eye - Xiidra 1GTT OU BID. * Skin irritation - Calmoseptine BID. * Insomnia/Depression/Appetite loss - Mirtazapine 7.5MG QHS. * Hypokalemia - KCL 20MEQ daily.
--- NOTE | 2019-08-02 19:46 | RAD_ITS ---
STUDY: X-RAY - ABDOMEN/PELVIS REASON FOR EXAM: Female, 79 years old. constipation TECHNIQUE: Single AP view of the abdomen / pelvis. COMPARISON: 01/04/2016. FINDINGS: Suboptimally seen right lung base. Possible mild left effusion, remainder of the left visualized lung bases are unremarkable. There is a catheter like representing the distal aspect of the left-sided chest port with the tip at the superior aspect of the inferior vena cava near the junction with the right atrium. There is nonspecific increased gas pattern throughout the small bowel and colon. No significant dilatation to suggest obstruction. There is no demonstrated free abdominal air. The visualized liver, spleen and kidneys are grossly normal in size and morphology. There are calcified phleboliths in the pelvis. Bilateral hip prosthesis are seen in place. There is acute fracture involving the left superior and inferior pubic rami extending to the left pubic bone. Underlying degenerative disease of the spine and SI joints. RAD/Abdomen Single View IMPRESSION: Nonspecific distention of the bowel with no signs of bowel obstruction or free air. Sequela of acute to subacute fracture of the left superior and inferior pubic rami. Electronically Signed: Ira Tyler MD at 1:08 EDT , Service support ,
[2019-08-02 20:55] VITALS: PULSE 88; RESP 16; BMI 20.4
[2019-08-02 22:40] VITALS: BMI 20.4
[2019-08-02] MEDS: Mirtazapine 15 MG Tablet 7.5 MG PO (22:47)
[2019-08-02] MEDS: Atorvastatin Calcium 20 MG Tablet PO (22:48)
[2019-08-02] MEDS: Latanoprost 0.005% 1 Bottle 1 DRP EACH EYE (22:56)
[2019-08-03] MEDS: Acetaminophen 500 MG Tablet 1000 MG PO ×3 (00:27→23:35)
[2019-08-03] MEDS: SACUBITRIL/VALSARTAN 49-51 MG TABLET 1 EACH PO ×2 (05:17→17:14)
[2019-08-03] MEDS: Ranolazine 500 MG Tablet PO ×2 (05:17→17:14)
[2019-08-03 05:18] VITALS: BP 123/58; PULSE 76
[2019-08-03] MEDS: Metoprolol Tartrate 50 MG Tablet 75 MG PO ×2 (05:18→17:13)
[2019-08-03] MEDS: Lactulose 20 GM/30 ML UDC PO ×2 (05:21→17:15)
[2019-08-03] MEDS: LIFITEGRAST 1 EACH DROPERETTE OP ×2 (05:25→17:15)
[2019-08-03] MEDS: Menthol/Lanolin/Calamine/Znox 113 GM Tube 1 APPLIC TOPICAL ×2 (05:30→17:18)
[2019-08-03 05:44] LABS: Absolute Lymphocyte Count 1.06 X10^3/uL (0.83-4.51); Absolute Neutrophil Count 11.1 X10^3/uL (2.0-7.7); Basophil# 0.02 X10^3/uL; Basophil% 0.1 % (0-1); Eosinophil# 0.07 X10^3/uL; Eosinophils% 0.5 % (0-5); Hematocrit 37.8 % (37-47); Hemoglobin 11.9 g/dL (12.0-15.0); Lymphocyte # 1.06 X10^3/ul (4.0); Lymphocyte % 7.8 % (19-41); Mean Corp Hgb Conc 31.5 g/dL (32-36); Mean Corpuscular Hgb 33.8 pg (27.0-32.0); Mean Corpuscular Volume 107.4 fL (81-99); Mean Platelet Vol. 12.4 fl (6.2-12.0); Monocyte# 1.35 X10^3/uL; Monocyte% 9.9 % (0-10); NRBC Flagged by Analyzer 0 % (0-5); Neutrophil # 11.06 X10^3/uL (2.7-7.7); Platelet Count 234 K/mm3 (150-450); RBC Distribution Width CV 16.3 % (11.6-14.6); RBC Distribution Width SD 63.9 fl (35.1-43.9); Red Blood Count 3.52 M/mm3 (4.2-5.4); White Blood Count 13.7 K/mm3 (4.4-11.0)
[2019-08-03 06:05] LABS: Anion Gap 9 (5-15); BUN 55 mg/dL (7-18); BUN/Creat Ratio 23.6 RATIO (10-20); Calcium,Total 8.3 mg/dL (8.5-10.1); Chloride 106 mmol/L (98-107); Creatinine, Serum 2.33 mg/dL (0.55-1.02); EST Glomerular Filtration Rate 21 mL/min (>60); Est Glom Filt Rate - Afr Amer 26 mL/min (>60); Estimated Creatinine Clearance 15.23 ml/min; Glucose 95 mg/dL (74-106); Sodium Level 138 mmol/L (136-145)
[2019-08-03] MEDS: BRIMONIDINE 0.2% 5ML BOTTLE 1 DRP EACH EYE ×2 (06:07→17:14)
[2019-08-03] MEDS: Timolol 0.5% 5ML OPTH.BTL 1 DRP EACH EYE ×2 (06:10→17:14)
[2019-08-03 09:32] VITALS: PULSE 67; RESP 16; O2SAT 92
[2019-08-03] MEDS: Furosemide 40 MG Tablet PO ×2 (10:22→16:07)
[2019-08-03] MEDS: Tuberculin,Purif.prot.deriv. 50 TU/ML Vial 5 ML ID (11:08)
[2019-08-03] MEDS: Ensure Clear 120 ML Liquid PO (11:13)
--- NOTE | 2019-08-03 11:48 | NURSING ---
Notified Dr. Georges of patient's port that is currently accessed, but not being used. Received order to de-access the port. Will add order.
[2019-08-03] MEDS: 0.9% Saline Lock 10 ML Syringe IV (12:35)
--- NOTE | 2019-08-03 12:41 | NURSING ---
Left chest port deaccessed per protocol. pt tolerated well.
[2019-08-03 14:33] VITALS: BP 109/58; PULSE 74; RESP 16; TEMP 36.2; O2SAT 97
[2019-08-03 17:13] VITALS: PULSE 74
[2019-08-03] MEDS: Latanoprost 0.005% 1 Bottle 1 DRP EACH EYE (20:17)
[2019-08-03] MEDS: Atorvastatin Calcium 20 MG Tablet PO (20:19)
[2019-08-03] MEDS: Mirtazapine 15 MG Tablet 7.5 MG PO (20:19)
[2019-08-04] MEDS: BRIMONIDINE 0.2% 5ML BOTTLE 1 DRP EACH EYE ×2 (06:49→17:44)
[2019-08-04] MEDS: Ranolazine 500 MG Tablet PO ×2 (06:49→17:46)
[2019-08-04] MEDS: Furosemide 40 MG Tablet PO ×2 (06:49→13:12)
[2019-08-04] MEDS: SACUBITRIL/VALSARTAN 49-51 MG TABLET 1 EACH PO ×2 (06:50→17:46)
[2019-08-04] MEDS: Timolol 0.5% 5ML OPTH.BTL 1 DRP EACH EYE ×2 (06:52→17:45)
[2019-08-04 06:54] VITALS: BP 143/72; PULSE 81
[2019-08-04] MEDS: Metoprolol Tartrate 50 MG Tablet 75 MG PO ×2 (06:54→17:46)
[2019-08-04] MEDS: LIFITEGRAST 1 EACH DROPERETTE OP ×2 (06:55→17:45)
[2019-08-04] MEDS: Ensure Clear 120 ML Liquid PO ×3 (06:55→17:52)
[2019-08-04] MEDS: Menthol/Lanolin/Calamine/Znox 113 GM Tube 1 APPLIC TOPICAL ×2 (07:02→17:42)
--- NOTE | 2019-08-04 08:15 | RAD_ITS ---
STUDY: X-RAY CHEST REASON FOR EXAM: Female, 79 years old. RECENT THORACENTESIS, CHF TECHNIQUE: AP and lateral views of the chest. COMPARISON: Comparison is made with prior study dated August 01, 2019. FINDINGS: A left-sided portacatheter is seen with the tip in the right atrium. Blunting of both cuts claire angles more prominent on the left side with mild degree of bibasilar pleural-parenchymal changes worse on the left side. Normal size heart. Normal mediastinum and yeyo. Normal visualized pulmonary arteries. There is atherosclerotic tortuosity of the aortic arch and descending thoracic aorta. Normal visualized thoracic spine. Normal visualized ribs, clavicles, and shoulders. There is no demonstrated abnormality of the visualized soft tissue structures of the upper abdomen. RAD/Chest PA and Lateral IMPRESSION: Stable mild bibasilar pleural-parenchymal changes. Electronically Signed: Zaheer Silverio, at 8:51 EDT , Service support ,
--- NOTE | 2019-08-04 11:09 | NURSING ---
Redness noted to sacral area, but no open areas noted. patient had removed the Mepilex dressing because she stated it kept bunching up. since no open areas are noted, will leave off at this time. will monitor.
--- NOTE | 2019-08-04 11:11 | NURSING ---
wound photo: left heel
--- NOTE | 2019-08-04 14:58 | PHA.CONS_ITS ---
<Jeffrey Waldrop - Last Filed: 08/04/19 14:58> Progress Note - Pharmacy Subjective: [] TCU Admission Objective: Allergies adalimumab [From Humira] Allergy (Verified 07/31/19 14:32) Rash ciprofloxacin HCl [From Cipro] Allergy (Verified 07/31/19 14:32) Unknown clavulanic acid Allergy (Verified 07/31/19 14:32) PT UNSURE OF REACTION doxazosin Allergy (Verified 07/31/19 14:32) Other hydroxyzine [From Vistaril] Allergy (Verified 07/31/19 14:32) Other latex Allergy (Verified 07/31/19 14:32) Rash levofloxacin [From Levaquin] Allergy (Verified 07/31/19 14:32) Unknown lisinopril Allergy (Verified 07/31/19 14:32) Other COUGH Methotrexate Analogues Allergy (Verified 07/31/19 14:32) Hives naproxen Allergy (Verified 07/31/19 14:32) Unknown potassium clavulanate [From Augmentin] Allergy (Verified 07/31/19 14:32) Unknown Sulfa (Sulfonamide Antibiotics) Allergy (Verified 07/31/19 14:32) Unknown amlodipine Adverse Reaction (Severe, Verified 07/31/19 14:32) edema haloperidol lactate [From Haldol] Adverse Reaction (Unknown, Verified 07/31/19 14:32) agitation amoxicillin trihydrate [From Augmentin] Adverse Reaction (Verified 07/31/19 14:32) Upset Stomach hydromorphone HCl [From Dilaudid] Adverse Reaction (Verified 07/31/19 14:32) Other HALLUCINATIONS hydroxychloroquine sulfate [From Plaquenil] Adverse Reaction (Verified 07/31/19 14:32) Other VISION ISSUES Current Medications Generic Name Dose Route Start Last Admin Trade Name Freq PRN Reason Stop Dose Admin Acetaminophen 1,000 mg 08/02/19 19:58 08/03/19 23:35 Tylenol PO 1,000 mg Q6H PRN PRN Administration Pain Score 1-10/10 Atorvastatin Calcium 20 mg 08/02/19 22:00 08/03/19 20:19 Lipitor PO 20 mg QHS JOSLYN Administration Brimonidine Tartrate 1 drop 08/03/19 06:00 08/04/19 06:49 Brimonidine 0.2% 5ml Bottle EACH EYE 1 drop BID JOSLYN Administration Calamine/Phenol 1 applic 08/03/19 06:00 08/04/19 07:02 Calmoseptine Ointment TOPICAL 1 applicatio BID JOSLYN Administration Protocol Furosemide 40 mg 08/03/19 08:00 08/04/19 13:12 Lasix PO 40 mg 0600,1400 JOSLYN Administration Lactulose 20 gm 08/03/19 06:00 08/04/19 06:50 Chronulac, Cephulac PO Not Given BID JOSLYN Latanoprost 1 drop 08/02/19 22:00 08/03/19 20:17 Xalatan Opthalmic EACH EYE 1 drop QHS JOSLYN Administration Metoprolol Tartrate 75 mg 08/03/19 06:00 08/04/19 06:54 Lopressor (Beta Brandyn) PO 75 mg BID JOSLYN Administration Mirtazapine 7.5 mg 08/02/19 22:00 08/03/19 20:19 Remeron PO 7.5 mg QHS JOSLYN Administration Nitroglycerin 0.4 mg 08/02/19 19:00 Nitrostat SUBLINGUAL Q5M PRN CARDIAC/CHEST PAIN Nutritional Formula (Lactose Free) 120 ml 08/02/19 22:00 08/04/19 11:43 Ensure Clear PO 120 ml 4X/DAY JOSLYN Administration Polyethylene Glycol 17 gm 08/03/19 06:00 08/04/19 06:49 Miralax PO Not Given DAILY JOSLYN Potassium Chloride 20 meq 08/03/19 06:00 08/04/19 06:50 K-Dur PO 20 meq DAILY JOSLYN Administration Ranolazine 500 mg 08/03/19 06:00 08/04/19 06:49 Ranexa PO 500 mg BID JOSLYN Administration Sacubitril/Valsartan 1 each 08/03/19 06:00 08/04/19 06:50 Entresto 49 Mg-51 Mg Tablet PO 1 each BID JOSLYN Administration Sodium Chloride 10 - 40 ml 08/02/19 23:21 08/03/19 12:35 IV 10 ml UD PRN Administration SALINE FLUSH Timolol Maleate 1 drop 08/03/19 06:00 08/04/19 06:52 Timoptic EACH EYE 1 drop BID JOSLYN Administration Tuberculin PPD 5 tu 08/10/19 10:00 Tubersol, Aplisol, Ppd ID 08/10/19 10:01 X1 ONE Problem List (Last Reviewed 07/04/19 @ 13:[address] Nahid Hernandez MD) Chronic systolic (congestive) heart failure (Chronic) Pleural effusion (Acute) Appetite loss (Chronic) Vital Signs Temp Pulse Resp BP Pulse Ox 97.2 F L 81 16 143/72 H 97 08/03/19 14:33 08/04/19 06:54 08/03/19 14:33 08/04/19 06:54 08/03/19 14:33 Oxygen Delivery Method Room Air Weight: 50.6 kg Body Mass Index (BMI) 20.4 Sodium 138 mmol/L (136-145) 08/03/19 05:01 Potassium 4.0 mmol/L (3.5-5.1) 08/03/19 05:01 Chloride 106 mmol/L (98-107) 08/03/19 05:01 Carbon Dioxide 23.0 mmol/L (21.0-32.0) 08/03/19 05:01 Anion Gap 9 (5-15) 08/03/19 05:01 BUN 55 mg/dL (7-18) H 08/03/19 05:01 Creatinine 2.33 mg/dL (0.55-1.02) H 08/03/19 05:01 Est GFR (MDRD) Af Amer 26 mL/min (>60) L 08/03/19 05:01 Est GFR (MDRD) Non-Af 21 mL/min (>60) L 08/03/19 05:01 BUN/Creatinine Ratio 23.6 RATIO (10-20) H 08/03/19 05:01 Glucose 95 mg/dL (74-106) 08/03/19 05:01 Assessment/Plan: 1) Pain: Acetaminophen 1000mg po q6h prn for pain score 1-10/10. Please continue to monitor prn usage and for signs/symptoms of increased/decreased pain. 2) Hyperlipidemia: Atorvastatin 20mg po qhs. Pt's LFT and Lipid panel are within normal limits. Please continue to monitor. 3) Hypokalemia: Potassium 20meq po daily. Pt's last K+ on 08/03/2019 was 4.0. Please continue to monitor. *4) Glaucoma: Brimonidine 0.2% 1 drop into each eye bid, Latanoprost 1 drop into each eye every night at bedtime, Timolol 0.5% 1 drop into each eye bid. Please continue to monitor for signs/symptoms of glaucoma. Please ensure that proper technique and timing is being used. If more than one topical ophthalmic drug product is being used, administer the drugs at least 10 minutes apart 5) Systolic Heart Failure: Furosemide 40mg po bid, Metoprolol Tartrate 75mg po bid, Entresto 1 tablet po bid. Pt's pulse is of normal rate and rhythm. Pt's average blood pressure is 122.25/60.75. Please continue to monitor 6) CAD: Metoprolol 75mg po bid, NTG 0.4mg po q5m prn for chest pain, Ranexa 500mg po bid. Please continue to monitor for signs/symptoms of chest pain. Psychotropic Medications: Mirtazapine 7.5mg po qhs. Please see dieticians note from 08/04/2019. Pt's appetite improving since Remeron added. Unnecessary Medications: none Bowel Regimen: Lactulose 20gm po bid, Miralax 17gm po daily. Please continue to monitor for signs/symptoms of constipation/diarrhea. Date of Note:: 08/04/19 - Provider Comments Provider responsibility: Provider responsible to enter orders to implement recommendations <Ted Georges Chi - Last Filed: 08/04/19 17:50> Progress Note - Pharmacy Subjective: [] Objective: Allergies adalimumab [From Humira] Allergy (Verified 07/31/19 14:32) Rash ciprofloxacin HCl [From Cipro] Allergy (Verified 07/31/19 14:32) Unknown clavulanic acid Allergy (Verified 07/31/19 14:32) PT UNSURE OF REACTION doxazosin Allergy (Verified 07/31/19 14:32) Other hydroxyzine [From Vistaril] Allergy (Verified 07/31/19 14:32) Other latex Allergy (Verified 07/31/19 14:32) Rash levofloxacin [From Levaquin] Allergy (Verified 07/31/19 14:32) Unknown lisinopril Allergy (Verified 07/31/19 14:32) Other COUGH Methotrexate Analogues Allergy (Verified 07/31/19 14:32) Hives naproxen Allergy (Verified 07/31/19 14:32) Unknown potassium clavulanate [From Augmentin] Allergy (Verified 07/31/19 14:32) Unknown Sulfa (Sulfonamide Antibiotics) Allergy (Verified 07/31/19 14:32) Unknown amlodipine Adverse Reaction (Severe, Verified 07/31/19 14:32) edema haloperidol lactate [From Haldol] Adverse Reaction (Unknown, Verified 07/31/19 14:32) agitation amoxicillin trihydrate [From Augmentin] Adverse Reaction (Verified 07/31/19 14:32) Upset Stomach hydromorphone HCl [From Dilaudid] Adverse Reaction (Verified 07/31/19 14:32) Other HALLUCINATIONS hydroxychloroquine sulfate [From Plaquenil] Adverse Reaction (Verified 07/31/19 14:32) Other VISION ISSUES Current Medications Generic Name Dose Route Start Last Admin Trade Name Freq PRN Reason Stop Dose Admin Acetaminophen 1,000 mg 08/02/19 19:58 08/03/19 23:35 Tylenol PO 1,000 mg Q6H PRN PRN Administration Pain Score 1-10/10 Atorvastatin Calcium 20 mg 08/02/19 22:00 08/03/19 20:19 Lipitor PO 20 mg QHS [facility] Administration Brimonidine Tartrate 1 drop 08/03/19 06:00 08/04/19 06:49 Brimonidine 0.2% 5ml Bottle EACH EYE 1 drop BID JOSLYN Administration Calamine/Phenol 1 applic 08/03/19 06:00 08/04/19 07:02 Calmoseptine Ointment TOPICAL 1 applicatio BID JOSLYN Administration Protocol Furosemide 40 mg 08/03/19 08:00 08/04/19 13:12 Lasix PO 40 mg 0600,1400 JOSLYN Administration Lactulose 20 gm 08/03/19 06:00 08/04/19 06:50 Chronulac, Cephulac PO Not Given BID JOSLYN Latanoprost 1 drop 08/02/19 22:00 08/03/19 20:17 Xalatan Opthalmic EACH EYE 1 drop QHS [facility] Administration Metoprolol Tartrate 75 mg 08/03/19 06:00 08/04/19 06:54 Lopressor (Beta Brandyn) PO 75 mg BID JOSLYN Administration Mirtazapine 15 mg 08/04/19 22:00 Remeron PO QHS [facility] Nitroglycerin 0.4 mg 08/02/19 19:00 Nitrostat SUBLINGUAL Q5M PRN CARDIAC/CHEST PAIN Nutritional Formula (Lactose Free) 120 ml 08/02/19 22:00 08/04/19 11:43 Ensure Clear PO 120 ml 4X/DAY JOSLYN Administration Polyethylene Glycol 17 gm 08/03/19 06:00 08/04/19 06:49 Miralax PO Not Given DAILY JOSLYN Potassium Chloride 20 meq 08/03/19 06:00 08/04/19 06:50 K-Dur PO 20 meq DAILY JOSLYN Administration Ranolazine 500 mg 08/03/19 06:00 08/04/19 06:49 Ranexa PO 500 mg BID JOSLYN Administration Sacubitril/Valsartan 1 each 08/03/19 06:00 08/04/19 06:50 Entresto 49 Mg-51 Mg Tablet PO 1 each BID JOSLYN Administration Sodium Chloride 10 - 40 ml 08/02/19 23:21 08/03/19 12:35 IV 10 ml UD PRN Administration SALINE FLUSH Timolol Maleate 1 drop 08/03/19 06:00 08/04/19 06:52 Timoptic EACH EYE 1 drop BID JOSLYN Administration Tuberculin PPD 5 tu 08/10/19 10:00 Tubersol, Aplisol, Ppd ID 08/10/19 10:01 X1 ONE Problem List (Last Reviewed 07/04/19 @ 13:[address] Nahid Hernandez MD) Chronic systolic (congestive) heart failure (Chronic) Pleural effusion (Acute) Appetite loss (Chronic) Vital Signs Temp Pulse Resp BP Pulse Ox 97.6 F L 74 16 113/62 97 08/04/19 16:29 08/04/19 16:29 08/04/19 16:29 08/04/19 16:29 08/04/19 16:29 Oxygen Delivery Method Room Air Weight: 50.6 kg Body Mass Index (BMI) 20.4 Sodium 138 mmol/L (136-145) 08/03/19 05:01 Potassium 4.0 mmol/L (3.5-5.1) 08/03/19 05:01 Chloride 106 mmol/L (98-107) 08/03/19 05:01 Carbon Dioxide 23.0 mmol/L (21.0-32.0) 08/03/19 05:01 Anion Gap 9 (5-15) 08/03/19 05:01 BUN 55 mg/dL (7-18) H 08/03/19 05:01 Creatinine 2.33 mg/dL (0.55-1.02) H 08/03/19 05:01 Est GFR (MDRD) Af Amer 26 mL/min (>60) L 08/03/19 05:01 Est GFR (MDRD) Non-Af 21 mL/min (>60) L 08/03/19 05:01 BUN/Creatinine Ratio 23.6 RATIO (10-20) H 08/03/19 05:01 Glucose 95 mg/dL (74-106) 08/03/19 05:01 Assessment/Plan: Psychotropic Medications: Unnecessary Medications: Bowel Regimen: - Provider Comments Provider responsibility: Provider responsible to enter orders to implement recommendations Provider Comments to Recommendations by Pharmacy: Agree
--- NOTE | 2019-08-04 16:01 | CASEMGMT ---
Social Work Code status DNR-CCA verified with pt. Completed MOLST form - placed in chart. Patient is active with [facility]. Twila Gutierres, LOW PRESSURE FIRER DESIGN CHIEF
[2019-08-04 16:29] VITALS: BP 113/62; PULSE 74; RESP 16; TEMP 36.4; O2SAT 97
[2019-08-04 17:46] VITALS: BP 113/62; PULSE 74
[2019-08-04 20:47] VITALS: PULSE 78
[2019-08-04] MEDS: Mirtazapine 15 MG Tablet PO (21:18)
[2019-08-04] MEDS: Atorvastatin Calcium 20 MG Tablet PO (21:18)
[2019-08-04] MEDS: Latanoprost 0.005% 1 Bottle 1 DRP EACH EYE (21:19)
[2019-08-05] MEDS: Ranolazine 500 MG Tablet PO ×2 (06:55→18:09)
[2019-08-05] MEDS: BRIMONIDINE 0.2% 5ML BOTTLE 1 DRP EACH EYE ×2 (06:55→18:11)
[2019-08-05] MEDS: SACUBITRIL/VALSARTAN 49-51 MG TABLET 1 EACH PO ×2 (06:55→18:09)
[2019-08-05 06:56] VITALS: BP 138/71; PULSE 82
[2019-08-05] MEDS: Metoprolol Tartrate 50 MG Tablet 75 MG PO ×2 (06:56→18:13)
[2019-08-05] MEDS: Furosemide 40 MG Tablet PO ×2 (06:56→13:49)
[2019-08-05] MEDS: Polyethylene Glycol 3350 17 GM PACKET PO (07:02)
[2019-08-05] MEDS: LIFITEGRAST 1 EACH DROPERETTE OP ×2 (07:06→18:10)
[2019-08-05] MEDS: Menthol/Lanolin/Calamine/Znox 113 GM Tube 1 APPLIC TOPICAL ×2 (07:06→18:08)
[2019-08-05] MEDS: Timolol 0.5% 5ML OPTH.BTL 1 DRP EACH EYE ×2 (07:07→18:11)
[2019-08-05] MEDS: Ensure Clear 120 ML Liquid PO ×2 (11:32→18:06)
[2019-08-05 13:50] VITALS: PULSE 69; RESP 18; O2SAT 91
[2019-08-05 15:23] VITALS: BP 113/70; PULSE 80; RESP 16; TEMP 36.6; O2SAT 96
[2019-08-05] MEDS: Lactulose 20 GM/30 ML UDC PO (18:07)
[2019-08-05 18:13] VITALS: BP 113/70; PULSE 80
[2019-08-05] MEDS: Latanoprost 0.005% 1 Bottle 1 DRP EACH EYE (20:41)
[2019-08-05] MEDS: Atorvastatin Calcium 20 MG Tablet PO (20:41)
[2019-08-05] MEDS: Mirtazapine 15 MG Tablet PO (20:41)
[2019-08-06] MEDS: Polyethylene Glycol 3350 17 GM PACKET PO (05:43)
[2019-08-06] MEDS: LIFITEGRAST 1 EACH DROPERETTE OP ×2 (05:43→17:26)
[2019-08-06] MEDS: Timolol 0.5% 5ML OPTH.BTL 1 DRP EACH EYE ×2 (05:44→17:25)
[2019-08-06] MEDS: BRIMONIDINE 0.2% 5ML BOTTLE 1 DRP EACH EYE ×2 (05:45→17:25)
[2019-08-06 05:46] VITALS: BP 131/88; PULSE 90
[2019-08-06] MEDS: Metoprolol Tartrate 50 MG Tablet 75 MG PO ×2 (05:46→17:30)
[2019-08-06] MEDS: Ranolazine 500 MG Tablet PO ×2 (05:47→17:29)
[2019-08-06] MEDS: SACUBITRIL/VALSARTAN 49-51 MG TABLET 1 EACH PO ×2 (05:47→17:23)
[2019-08-06] MEDS: Furosemide 40 MG Tablet PO ×2 (05:47→13:42)
[2019-08-06] MEDS: Menthol/Lanolin/Calamine/Znox 113 GM Tube 1 APPLIC TOPICAL ×2 (05:48→17:25)
[2019-08-06 10:00] VITALS: PULSE 70; RESP 16
--- NOTE | 2019-08-06 12:03 | CASEMGMT ---
Social Work IDT met with patient, son and daughter via conference call for care plan meeting. Discussed patient's progress in therapy. Pt is mod assist for bed mobility, sitting to standing and toileting tasks. Pt is min assist for transfers, and while ambulating 5-20 ft with FWW. Pt is very SOB after ambulation with a limited activity tolerance. O2 was PRN but has become continuous 2LPM. Therapy will complete full ADL on the following day. ST recommended pt's diet be mech soft textures; however, pt understands risks and is choosing to have a regular diet, but did agree to be supervised during meals. Pt's cardiac 2 mg sodium diet was also discontinued and is now on a regular diet as pt has poor appetite. Physician increased Remeron for mood and appetite 08/04. Pt will be out of room isolation 08/15. Activities continues to do 1:1 visits. Explained insurance with NRD 08/07 and continued stay is not guaranteed. Pt lives at home alone and had not been using her walker, but receiving assistance in w/c prior. IDT recommending 06/11 at this time. Son is working from right now but will soon return and family is concerned with pt home alone as well. Explained private watchman services and AL. Due to COVID and aides being limited services, pt is agreeable to AL in the interim. Emailed dtr list of resources for pt. IDT recommending continued therapy and nursing at this time. Will continue to follow. Twila Gutierres, HUSSEIN RICHARDSONW
[2019-08-06 13:20] VITALS: BP 114/72; PULSE 79; RESP 16; TEMP 36.6; O2SAT 98
[2019-08-06] MEDS: Lactulose 20 GM/30 ML UDC PO (17:23)
[2019-08-06 17:30] VITALS: BP 114/72; PULSE 86
--- NOTE | 2019-08-06 18:39 | NURSING ---
Soap suds enema given per order, pt tolerated the whole bag, will monitor effect
[2019-08-06] MEDS: Latanoprost 0.005% 1 Bottle 1 DRP EACH EYE (21:24)
[2019-08-06] MEDS: Atorvastatin Calcium 20 MG Tablet PO (21:25)
[2019-08-06] MEDS: Mirtazapine 15 MG Tablet PO (21:27)
[2019-08-07] MEDS: Ranolazine 500 MG Tablet PO ×2 (05:58→16:59)
[2019-08-07] MEDS: SACUBITRIL/VALSARTAN 49-51 MG TABLET 1 EACH PO ×2 (05:58→16:59)
[2019-08-07] MEDS: Furosemide 40 MG Tablet PO ×2 (05:58→13:15)
[2019-08-07] MEDS: BRIMONIDINE 0.2% 5ML BOTTLE 1 DRP EACH EYE ×2 (05:58→16:59)
[2019-08-07] MEDS: Polyethylene Glycol 3350 17 GM PACKET PO (05:59)
[2019-08-07] MEDS: Menthol/Lanolin/Calamine/Znox 113 GM Tube 1 APPLIC TOPICAL ×2 (06:00→17:00)
[2019-08-07] MEDS: Timolol 0.5% 5ML OPTH.BTL 1 DRP EACH EYE ×2 (06:01→16:59)
[2019-08-07 06:06] VITALS: BP 138/80; PULSE 82
[2019-08-07] MEDS: Metoprolol Tartrate 50 MG Tablet 75 MG PO ×2 (06:06→16:59)
[2019-08-07] MEDS: LIFITEGRAST 1 EACH DROPERETTE OP ×2 (06:09→16:59)
--- NOTE | 2019-08-07 06:13 | NURSING ---
Pt was taken potassium split in half with water and started coughing. Nurse offered pudding or applesauce with pills but pt refused. Listen to lungs anterior and posterior bilaterally sound are clear. Rn made aware.
[2019-08-07 10:00] VITALS: PULSE 68; RESP 16; O2SAT 94
--- NOTE | 2019-08-07 12:46 | CASEMGMT ---
Addendum entered by Twila Gutierres 08/07/19 14:25: During conversation discussed Palliative and Hospice care. Dtr stated they cancelled Palliative when pt discharged prior as pt was doing so well. Dtr inquired about hospice. Explained the differences between the two. Dtr understood. Original Note: Social Work Spoke with patient's daughter to further discuss alternative DC options. Discussed private duty aides and assisted living. Explained both would be private pay. [place] has some Medicaid eligible facilities. Dtr stated they had looked into Medicaid prior but did not pursue it. Emailed list of [place] facilities and a Medicaid application. Will continue to follow. HUSSEIN ObregonW
--- NOTE | 2019-08-07 13:07 | MDS.RN ---
Pain interview for fadumo 08/08/19 completed.
[2019-08-07 14:12] VITALS: BP 125/79; PULSE 76; RESP 14; TEMP 36.7; O2SAT 98
--- NOTE | 2019-08-07 14:17 | MDS.RN ---
Pain interview for fadumo 08/09/19 completed.
[2019-08-07] MEDS: Acetaminophen 500 MG Tablet 1000 MG PO (14:28)
--- NOTE | 2019-08-07 16:03 | CHAPLAIN ---
Type of Pastoral Visit _x__ Initial Visit ___ Follow-up Visit ___ On-call Visit ___ General Patient Visit ___ Spiritual Assessment ___ Family Conference ___ Bereavement ___ Rapid Response ___ Code Blue ___ Other (describe below) Pastoral Care Referral From ___ Patient ___ Family _x__ Nurse ___ Physician ___ Relocation Director ___ Coating Engineer ___ Other (describe below) Sacrament/Intervention _x__ Active listening ___ Anointing ___ Episcopalian ___ Bereavement ___ Communion ___ Miladys exploration ___ ___ Life review _x__ Prayer ___ Reconciliation ___ Sacrament of Sick ___ Supportive presence ___ Wedding ___ Other (describe below) Pastoral Comments
[2019-08-07 16:59] VITALS: BP 125/79; PULSE 76
[2019-08-07] MEDS: Lactulose 20 GM/30 ML UDC PO (17:00)
[2019-08-07] MEDS: Atorvastatin Calcium 20 MG Tablet PO (19:37)
[2019-08-07] MEDS: Mirtazapine 15 MG Tablet PO (19:37)
[2019-08-07] MEDS: Latanoprost 0.005% 1 Bottle 1 DRP EACH EYE (19:39)
[2019-08-08 05:31] VITALS: BP 128/71; PULSE 78
[2019-08-08] MEDS: Metoprolol Tartrate 50 MG Tablet 75 MG PO ×2 (05:31→18:48)
[2019-08-08] MEDS: SACUBITRIL/VALSARTAN 49-51 MG TABLET 1 EACH PO ×2 (05:31→18:41)
[2019-08-08] MEDS: Furosemide 40 MG Tablet PO ×2 (05:31→14:34)
[2019-08-08] MEDS: Ranolazine 500 MG Tablet PO ×2 (05:32→18:41)
[2019-08-08] MEDS: Polyethylene Glycol 3350 17 GM PACKET PO (05:32)
[2019-08-08] MEDS: BRIMONIDINE 0.2% 5ML BOTTLE 1 DRP EACH EYE ×2 (05:33→18:42)
[2019-08-08] MEDS: Timolol 0.5% 5ML OPTH.BTL 1 DRP EACH EYE ×2 (05:38→18:41)
[2019-08-08] MEDS: Menthol/Lanolin/Calamine/Znox 113 GM Tube 1 APPLIC TOPICAL ×2 (05:38→18:43)
[2019-08-08] MEDS: LIFITEGRAST 1 EACH DROPERETTE OP ×2 (05:41→18:42)
[2019-08-08 06:55] VITALS: O2SAT 94
[2019-08-08 14:12] VITALS: BP 117/59; PULSE 82; RESP 18; TEMP 36.9; O2SAT 97
--- NOTE | 2019-08-08 15:37 | CASEMGMT ---
Social Work BIMS and PHQ-9 completed for MDS assessment. Twila Gutierres, PROGRAM DIRECTOR GROUP WORK CIVIL TECHNICIAN
--- NOTE | 2019-08-08 16:49 | CASEMGMT ---
Social Work Spoke with patient several times on this date. Pt emotional and tired. Provided emotional support. Pt reported to depressive symptoms and feeling like a failure and she let her family down. Discussed patient's goals for life and if we needed to discuss hospice. Pt stated not at this time she still wants to fight. Pt was tearful. Provided supportive listening. Pt stated she missed her family and grandchildren. Offered to assist video chat. Pt reluctant at first as she did want to be a burden. Pt had her tablet and SW assisted with multiple video calls with grandchildren. Pt in better spirits and very appreciative. Spoke with patient's MOISES, per her permission, to further discuss alternative DC plans. Discussed Medicaid and the services it can provide in a SNF or the community. i.e. Passport, AL. Answered questions and explained pt's current status. MOISES to complete Medicaid application for possible AL or SNF placement if pt cannot return home safely without 24/7 care. MOISES appreciative. Will continue to follow. Insurance update 08/07. HUSSEIN Obregon
[2019-08-08 18:48] VITALS: BP 117/59; PULSE 79
[2019-08-08] MEDS: Mirtazapine 15 MG Tablet PO (21:03)
[2019-08-08] MEDS: Atorvastatin Calcium 20 MG Tablet PO (21:03)
[2019-08-08] MEDS: Latanoprost 0.005% 1 Bottle 1 DRP EACH EYE (21:04)
[2019-08-09 06:54] VITALS: BP 139/76; PULSE 81
[2019-08-09] MEDS: Metoprolol Tartrate 50 MG Tablet 75 MG PO ×2 (06:54→17:16)
[2019-08-09] MEDS: SACUBITRIL/VALSARTAN 49-51 MG TABLET 1 EACH PO ×2 (06:55→17:16)
[2019-08-09] MEDS: Ranolazine 500 MG Tablet PO ×2 (06:56→17:18)
[2019-08-09] MEDS: Furosemide 40 MG Tablet PO ×2 (06:56→13:52)
[2019-08-09] MEDS: Menthol/Lanolin/Calamine/Znox 113 GM Tube 1 APPLIC TOPICAL ×2 (07:02→17:16)
[2019-08-09] MEDS: BRIMONIDINE 0.2% 5ML BOTTLE 1 DRP EACH EYE ×2 (07:03→17:17)
[2019-08-09] MEDS: Timolol 0.5% 5ML OPTH.BTL 1 DRP EACH EYE ×2 (07:05→17:20)
[2019-08-09] MEDS: LIFITEGRAST 1 EACH DROPERETTE OP ×2 (07:06→17:14)
[2019-08-09 10:00] VITALS: PULSE 68; RESP 18; O2SAT 98
[2019-08-09] MEDS: Polyethylene Glycol 3350 17 GM PACKET PO (11:28)
[2019-08-09 14:20] VITALS: BP 120/59; PULSE 77; RESP 16; TEMP 36.9; O2SAT 95
[2019-08-09 17:16] VITALS: BP 120/59; PULSE 77
[2019-08-09] MEDS: Atorvastatin Calcium 20 MG Tablet PO (21:17)
[2019-08-09] MEDS: Mirtazapine 15 MG Tablet PO (21:17)
[2019-08-09] MEDS: Latanoprost 0.005% 1 Bottle 1 DRP EACH EYE (21:20)
[2019-08-10] MEDS: Polyethylene Glycol 3350 17 GM PACKET PO (05:33)
[2019-08-10] MEDS: LIFITEGRAST 1 EACH DROPERETTE OP ×2 (05:33→17:10)
[2019-08-10] MEDS: Ranolazine 500 MG Tablet PO ×2 (05:35→17:13)
[2019-08-10] MEDS: Furosemide 40 MG Tablet PO ×2 (05:35→13:46)
[2019-08-10] MEDS: SACUBITRIL/VALSARTAN 49-51 MG TABLET 1 EACH PO ×2 (05:35→17:12)
[2019-08-10] MEDS: Menthol/Lanolin/Calamine/Znox 113 GM Tube 1 APPLIC TOPICAL ×2 (05:36→17:11)
[2019-08-10] MEDS: BRIMONIDINE 0.2% 5ML BOTTLE 1 DRP EACH EYE ×2 (05:37→17:13)
[2019-08-10] MEDS: Timolol 0.5% 5ML OPTH.BTL 1 DRP EACH EYE ×2 (05:37→17:18)
[2019-08-10 05:40] VITALS: BP 144/75; PULSE 79
[2019-08-10] MEDS: Metoprolol Tartrate 50 MG Tablet 75 MG PO ×2 (05:40→17:12)
[2019-08-10 07:47] LABS: Absolute Lymphocyte Count 1.12 X10^3/uL (0.83-4.51); Absolute Neutrophil Count 11.2 X10^3/uL (2.0-7.7); Basophil# 0.04 X10^3/uL; Basophil% 0.3 % (0-1); Eosinophil# 0.15 X10^3/uL; Eosinophils% 1.1 % (0-5); Hematocrit 41.2 % (37-47); Hemoglobin 12.5 g/dL (12.0-15.0); Lymphocyte # 1.12 X10^3/ul (4.0); Lymphocyte % 8.1 % (19-41); Mean Corp Hgb Conc 30.3 g/dL (32-36); Mean Corpuscular Hgb 32.6 pg (27.0-32.0); Mean Corpuscular Volume 107.3 fL (81-99); Mean Platelet Vol. 12.3 fl (6.2-12.0); Monocyte# 1.25 X10^3/uL; NRBC Flagged by Analyzer 0 % (0-5); Neutrophil # 11.21 X10^3/uL (2.7-7.7); Neutrophil % 80.9 % (47-70); Platelet Count 293 K/mm3 (150-450); RBC Distribution Width CV 16.5 % (11.6-14.6); RBC Distribution Width SD 64.2 fl (35.1-43.9); Red Blood Count 3.84 M/mm3 (4.2-5.4); White Blood Count 13.9 K/mm3 (4.4-11.0)
[2019-08-10 08:02] LABS: Anion Gap 7 (5-15); BUN 58 mg/dL (7-18); BUN/Creat Ratio 25.8 RATIO (10-20); Calcium,Total 8.7 mg/dL (8.5-10.1); Chloride 108 mmol/L (98-107); Creatinine, Serum 2.25 mg/dL (0.55-1.02); EST Glomerular Filtration Rate 22 mL/min (>60); Est Glom Filt Rate - Afr Amer 27 mL/min (>60); Estimated Creatinine Clearance 15.77 ml/min; Glucose 114 mg/dL (74-106); Potassium 4.7 mmol/L (3.5-5.1); Sodium Level 138 mmol/L (136-145)
[2019-08-10] MEDS: Tuberculin,Purif.prot.deriv. 50 TU/ML Vial 5 ML ID (10:11)
[2019-08-10 14:15] VITALS: BP 142/59; PULSE 84; RESP 17; TEMP 36; O2SAT 94
[2019-08-10 17:12] VITALS: BP 142/59; PULSE 84
[2019-08-10] MEDS: Mirtazapine 15 MG Tablet PO (20:52)
[2019-08-10] MEDS: Atorvastatin Calcium 20 MG Tablet PO (20:52)
[2019-08-10] MEDS: Latanoprost 0.005% 1 Bottle 1 DRP EACH EYE (20:53)
[2019-08-11 05:48] VITALS: BP 141/70; PULSE 82
[2019-08-11] MEDS: Metoprolol Tartrate 50 MG Tablet 75 MG PO ×2 (05:48→17:28)
[2019-08-11] MEDS: Furosemide 40 MG Tablet PO ×2 (05:49→13:15)
[2019-08-11] MEDS: Ranolazine 500 MG Tablet PO ×2 (05:49→17:30)
[2019-08-11] MEDS: Timolol 0.5% 5ML OPTH.BTL 1 DRP EACH EYE ×2 (05:54→17:27)
[2019-08-11] MEDS: LIFITEGRAST 1 EACH DROPERETTE OP ×2 (05:55→17:27)
[2019-08-11] MEDS: Menthol/Lanolin/Calamine/Znox 113 GM Tube 1 APPLIC TOPICAL ×2 (05:55→17:32)
[2019-08-11] MEDS: BRIMONIDINE 0.2% 5ML BOTTLE 1 DRP EACH EYE ×2 (05:55→17:27)
[2019-08-11] MEDS: SACUBITRIL/VALSARTAN 49-51 MG TABLET 1 EACH PO ×2 (06:17→17:30)
[2019-08-11] MEDS: Polyethylene Glycol 3350 17 GM PACKET PO (06:18)
[2019-08-11 08:59] VITALS: PULSE 72; RESP 18
--- NOTE | 2019-08-11 11:48 | NURSING ---
wound photo: left heel
--- NOTE | 2019-08-11 13:30 | RAD_ITS ---
STUDY: X-RAY - ABDOMEN/PELVIS REASON FOR EXAM: Female, 79 years old. DIARRHEA, CONSTIPATION TECHNIQUE: Single AP view of the abdomen / pelvis. COMPARISON: Comparison is made with prior examination dated August 02, 2019. FINDINGS: Air-fluid levels are seen within the colon. This may be due to diarrhea. There is no demonstrated free abdominal air. The visualized liver, spleen and kidneys are grossly normal in size and morphology. Vascular calcification. Bilateral hip replacements. Stable old fracture of the left superior pubic ramus. RAD/Abdomen Single View IMPRESSION: Air-fluid level in the colon suggestive of diarrhea. Electronically Signed: Zaheer Silverio, at 14:56 EDT , Service support ,
--- NOTE | 2019-08-11 13:30 | RAD_ITS ---
STUDY: X-RAY CHEST REASON FOR EXAM: Female, 79 years old. CHF TECHNIQUE: Single AP portable view of the chest. COMPARISON: Comparison is made with prior examination dated August 11, 2019. FINDINGS: A left-sided duane catheter seen with the tip in the right atrium. Stable small bilateral pleural effusions left greater than right with bibasilar atelectasis and/or infiltrate worse on the left side. There is no demonstrated pleural abnormality. Calcification of the mitral valve annulus. Normal mediastinum and yeyo. Normal visualized pulmonary arteries. Normal visualized aortic arch and descending thoracic aorta. Normal visualized thoracic spine. There is degenerative osteoarthritis of the bilateral shoulders. Healed fracture and deformity of the left humeral head. Healed right clavicular fracture. Small bilateral effusions with bibasilar infiltration and/or atelectasis is worse on the left side. There has been essentially no change. RAD/Chest PA and Lateral IMPRESSION: Small bilateral effusions with bibasilar infiltration and/or atelectasis is worse on the left side. There has been essentially no change. Electronically Signed: Zaheer Silverio, at 14:58 EDT , Service support ,
[2019-08-11 15:18] VITALS: BP 133/89; PULSE 86; RESP 14; TEMP 36.4; O2SAT 94
[2019-08-11 17:28] VITALS: BP 133/89; PULSE 86
[2019-08-11] MEDS: Latanoprost 0.005% 1 Bottle 1 DRP EACH EYE (22:29)
[2019-08-11] MEDS: Mirtazapine 15 MG Tablet PO (22:31)
[2019-08-11] MEDS: Atorvastatin Calcium 20 MG Tablet PO (22:33)
[2019-08-12] MEDS: BRIMONIDINE 0.2% 5ML BOTTLE 1 DRP EACH EYE ×2 (05:49→17:21)
[2019-08-12] MEDS: Menthol/Lanolin/Calamine/Znox 113 GM Tube 1 APPLIC TOPICAL ×2 (05:49→17:22)
[2019-08-12 05:50] VITALS: BP 137/80; PULSE 85
[2019-08-12] MEDS: Metoprolol Tartrate 50 MG Tablet 75 MG PO (05:50)
[2019-08-12] MEDS: Furosemide 40 MG Tablet PO ×2 (05:51→13:10)
[2019-08-12] MEDS: SACUBITRIL/VALSARTAN 49-51 MG TABLET 1 EACH PO ×2 (05:51→17:22)
[2019-08-12] MEDS: Ranolazine 500 MG Tablet PO ×2 (05:51→17:23)
[2019-08-12] MEDS: Timolol 0.5% 5ML OPTH.BTL 1 DRP EACH EYE ×2 (05:52→17:28)
[2019-08-12] MEDS: LIFITEGRAST 1 EACH DROPERETTE OP ×2 (05:54→17:19)
[2019-08-12] MEDS: Lactulose 20 GM/30 ML UDC PO (05:54)
--- NOTE | 2019-08-12 07:51 | NURSING ---
Pt has swelling to right forearm up to up arm area. Rn made aware. Right arm elevated on pillows at this time.
[2019-08-12 15:34] VITALS: BP 132/68; PULSE 58; RESP 20; TEMP 36.6; O2SAT 88
--- NOTE | 2019-08-12 17:12 | NURSING ---
dr kim called pt's daughter and updated on all testing and prognosis and talked at length about hospice.
[2019-08-12 18:38] VITALS: BP 132/68; PULSE 58
[2019-08-12] MEDS: Metoprolol Tartrate 50 MG Tablet PO (18:38)
--- NOTE | 2019-08-12 21:30 | NURSING ---
Per Melissa Zapata RN, infection control, hold off doing covid swab until morning d/t not being sent out until no. Rep therapy aware to pass on to next shift.
[2019-08-12 23:15] VITALS: PULSE 72; RESP 16; O2SAT 94
[2019-08-12] MEDS: Latanoprost 0.005% 1 Bottle 1 DRP EACH EYE (23:16)
[2019-08-12] MEDS: Mirtazapine 15 MG Tablet PO (23:16)
[2019-08-12] MEDS: Atorvastatin Calcium 20 MG Tablet PO (23:17)
[2019-08-13] MEDS: Acetaminophen 500 MG Tablet 1000 MG PO (03:03)
[2019-08-13] MEDS: BRIMONIDINE 0.2% 5ML BOTTLE 1 DRP EACH EYE ×2 (06:06→17:09)
[2019-08-13] MEDS: Menthol/Lanolin/Calamine/Znox 113 GM Tube 1 APPLIC TOPICAL ×2 (06:07→17:09)
[2019-08-13] MEDS: SACUBITRIL/VALSARTAN 49-51 MG TABLET 1 EACH PO ×2 (06:10→17:09)
[2019-08-13] MEDS: Ranolazine 500 MG Tablet PO ×2 (06:10→17:09)
[2019-08-13] MEDS: Furosemide 40 MG Tablet PO ×2 (06:10→13:40)
[2019-08-13] MEDS: LIFITEGRAST 1 EACH DROPERETTE OP ×2 (06:10→17:10)
[2019-08-13 06:12] VITALS: PULSE 68
[2019-08-13] MEDS: Timolol 0.5% 5ML OPTH.BTL 1 DRP EACH EYE ×2 (06:12→17:10)
[2019-08-13] MEDS: Metoprolol Tartrate 50 MG Tablet PO ×2 (06:12→17:09)
[2019-08-13 07:30] VITALS: O2SAT 94
--- NOTE | 2019-08-13 09:27 | CPS ---
COVID swab collected and walked to lab.
[2019-08-13 13:43] VITALS: BP 136/72; PULSE 68; RESP 18; TEMP 36.6
--- NOTE | 2019-08-13 15:57 | CASEMGMT ---
Social Work Spoke with daughter and patient multiple times at length to discuss patient's alternative DC options and Palliative vs Hospice. Dtr and pt are agreeable to AL or SNF. Received pricing and ALIREZA eligibility from several facilities. Dtr to speak with family to discuss finances and placement. When speaking with pt, pt expressed just wanting to see her children and then she can go. Pt understands further treatment, in any capacity, will not benefit her at this state. Dtr understanding of this as well. Explained DC plans can be made prior to insurance update 08/17, if the pt chooses. Dtr to discuss with family the plan for pt. Provided ongoing emotional and verbal support. Will continue to follow. HUSSEIN ObregonW
[2019-08-13 17:09] VITALS: PULSE 68
[2019-08-13 17:21] VITALS: O2SAT 94
[2019-08-13 17:53] VITALS: RESP 20; O2SAT 94
[2019-08-13] MEDS: Atorvastatin Calcium 20 MG Tablet PO (22:52)
[2019-08-13] MEDS: Mirtazapine 15 MG Tablet PO (22:52)
[2019-08-13] MEDS: Latanoprost 0.005% 1 Bottle 1 DRP EACH EYE (22:57)
[2019-08-14] MEDS: Acetaminophen 500 MG Tablet 1000 MG PO ×3 (01:32→17:09)
[2019-08-14] MEDS: BRIMONIDINE 0.2% 5ML BOTTLE 1 DRP EACH EYE ×2 (06:22→16:56)
[2019-08-14] MEDS: Furosemide 40 MG Tablet PO ×2 (06:23→13:46)
[2019-08-14] MEDS: Timolol 0.5% 5ML OPTH.BTL 1 DRP EACH EYE ×2 (06:24→16:56)
[2019-08-14] MEDS: Ranolazine 500 MG Tablet PO ×2 (06:25→17:00)
[2019-08-14] MEDS: SACUBITRIL/VALSARTAN 49-51 MG TABLET 1 EACH PO ×2 (06:25→17:00)
[2019-08-14] MEDS: Menthol/Lanolin/Calamine/Znox 113 GM Tube 1 APPLIC TOPICAL ×2 (06:29→16:58)
[2019-08-14] MEDS: LIFITEGRAST 1 EACH DROPERETTE OP ×2 (06:29→16:58)
[2019-08-14 06:41] VITALS: PULSE 70
[2019-08-14] MEDS: Metoprolol Tartrate 50 MG Tablet PO ×2 (06:41→16:55)
[2019-08-14] MEDS: Ipratropium/Albuterol Sulfate 3 ML AMPUL.NEB INHALATION ×2 (08:30→14:54)
--- NOTE | 2019-08-14 09:07 | NURSING ---
Covid 19 test cancelled per Cristin junior account manager. pt removed from precautions.
[2019-08-14 09:16] VITALS: PULSE 82; RESP 17
--- NOTE | 2019-08-14 13:09 | CASEMGMT ---
Addendum entered by Twila Gutierres 08/14/19 16:02: Patient has since declined and pt requesting to go home as soon as possible. Children, hospice and IDT agreeable to DC on this date. Coordinated with hospice to have equipment in place at home. Scheduled cot transport through [facility] for 5:30 pm. Ongoing emotional support has been provided to family and pt. Original Note: Social Work Spoke with pt - pt reports to be very tried, SOB - stated nursing had to increase O2 last night and pt states it doesn't seem like it 's helping much. States she feels like she is drowning. Discussed hospice and DC plan again. Pt stated I just want to be with my kids and quick. Spoke with dtr to discuss plans. Dtr still unsure of plan. She spoke with [facility] but their visitors are still restricted regardless of hospice. Dtr stated she doesn't want to be the bad joey with their siblings and make the decision for the pt. SW offered to contact the brothers to explain the situation. Spoke with both sons, explained pt's current state her wishes, hospice and the goal to have pt DC home to see all of her children. Then determine pt's medical state and the hospice SW can assist with transferring to [facility] if need be. All children agreeable. Pt agreeable. Referred to [facility] for DC home 08/14. Will schedule cot transport. Plan: DC home 08/14 with [facility] Twila Gutierres, HUSSEIN RICHARDSONW
[2019-08-14 14:46] VITALS: BP 125/68; PULSE 47; RESP 14; TEMP 36.7; O2SAT 99
[2019-08-14 14:54] VITALS: PULSE 79; RESP 22
[2019-08-14 15:03] VITALS: PULSE 83; O2SAT 99
--- NOTE | 2019-08-14 16:48 | NURSING ---
attempted to call report to Latonia at [facility], no answer. left message for return call.
[2019-08-14 16:55] VITALS: PULSE 83
--- NOTE | 2019-08-14 17:23 | DCINST_ITS ---
- Discharge Diagnoses Current Active Problems: Current Active and Chronic Problems (Last Reviewed 07/04/19 @ 13:[address] Nahid Hernandez MD) Chronic systolic (congestive) heart failure (Chronic) Pleural effusion (Acute) Appetite loss (Chronic) You will use the following diet at home:: No restrictions, Regular Your food should be the consistency of: Regular Your liquids should be the consistency of: Regular/Thin Discharge Activity: Return to Normal Activity, Use Walker Weight Bearing Status: Weight bearing as tolerated Allergies/Adverse Reactions: Allergies adalimumab [From Humira] Allergy (Verified 07/31/19 14:32) Rash ciprofloxacin HCl [From Cipro] Allergy (Verified 07/31/19 14:32) Unknown clavulanic acid Allergy (Verified 07/31/19 14:32) PT UNSURE OF REACTION doxazosin Allergy (Verified 07/31/19 14:32) Other hydroxyzine [From Vistaril] Allergy (Verified 07/31/19 14:32) Other latex Allergy (Verified 07/31/19 14:32) Rash levofloxacin [From Levaquin] Allergy (Verified 07/31/19 14:32) Unknown lisinopril Allergy (Verified 07/31/19 14:32) Other COUGH Methotrexate Analogues Allergy (Verified 07/31/19 14:32) Hives naproxen Allergy (Verified 07/31/19 14:32) Unknown potassium clavulanate [From Augmentin] Allergy (Verified 07/31/19 14:32) Unknown Sulfa (Sulfonamide Antibiotics) Allergy (Verified 07/31/19 14:32) Unknown amlodipine Adverse Reaction (Severe, Verified 07/31/19 14:32) edema haloperidol lactate [From Haldol] Adverse Reaction (Unknown, Verified 07/31/19 14:32) agitation amoxicillin trihydrate [From Augmentin] Adverse Reaction (Verified 07/31/19 14:32) Upset Stomach hydromorphone HCl [From Dilaudid] Adverse Reaction (Verified 07/31/19 14:32) Other HALLUCINATIONS hydroxychloroquine sulfate [From Plaquenil] Adverse Reaction (Verified 07/31/19 14:32) Other VISION ISSUES Medications to take at Discharge atorvastatin 20 mg tablet 20 mg PO QHS 06/21/18 Brimonidine Tartrate/Timolol [Combigan Eye Drops] 1 drp EACH EYE BID 02/13/19 Latanoprost 1 drp EACH EYE QHS 02/13/19 Lifitegrast [Xiidra] 1 ea OP BID 04/29/19 Nitroglycerin [Nitrostat] 0.4 mg SUBLINGUAL Q5M PRN 05/27/19 Furosemide [Lasix] 40 mg PO BID@1000,1800 #60 tab 06/11/19 ranolazine 500 mg tablet,extended release,12 hr 500 mg PO BID #180 tab 07/23/19 Menthol/Lanolin/Calamine/Znox [Calmoseptine Ointment] 1 applic TOPICAL BID 07/31/19 Mirtazapine [Remeron] 7.5 mg PO QHS 07/31/19 Polyethylene Glycol 3350 [Miralax] 17 gm PO DAILY 08/02/19 Acetaminophen [Tylenol] 1,000 mg PO Q6H PRN PRN tab 08/14/19 Metoprolol Tartrate [Lopressor (beta elena)] 50 mg PO BID tab 08/14/19 Primary Care Physician: Ted Georges Chi, MD [Primary Care Provider] - Please follow up with your Primary Care Physician in: As needed. Test Results: Test results from this visit will be discussed in further detail at your follow- up appointment, if applicable. Please Follow Up With: Nahid Hernandez MD When: As needed. Proposed Discharge Date: 08/14/19
--- NOTE | 2019-08-14 17:25 | DS.PCM_ITS ---
Discharge Date and Diagnosis - Problem List Patient Problems: Active and Suspected Problems (Last Reviewed 07/04/19 @ 13:[address] Nahid Hernandez MD) Pleural effusion (Acute) Date of Admission: 08/02/19 Date of Discharge: 08/14/19 - Primary Discharge Diagnosis Active and Suspected Problems (Last Reviewed 07/04/19 @ 13:[address] Nahid Hernandez MD) Pleural effusion (Acute) - Secondary Discharge Diagnosis Chronic Problems (Last Reviewed 07/04/19 @ 13:[address] Nahid Hernandez MD) Acute on chronic kidney failure (Chronic) Acute on chronic systolic and diastolic heart failure, NYHA class 4 (Chronic) Dysphagia (Chronic) Hypertension (Chronic) Coronary artery disease (Chronic) Hypokalemia (Chronic) Glaucoma (Chronic) Allergic rhinitis (Chronic) Dry eye (Chronic) Claustrophobia (Chronic) Anxiety (Chronic) Seizure (Chronic) Seizure disorder (Chronic) Acute on chronic systolic and diastolic heart failure, NYHA class 1 (Chronic) Chronic systolic (congestive) heart failure (Chronic) Appetite loss (Chronic) CHF (congestive heart failure) (Chronic) Lower extremity edema (Chronic) Dyspnea (Chronic) Atherosclerotic heart disease of [place] coronary artery without angina pectoris (Chronic) History of non-ST elevation myocardial infarction (NSTEMI) (Chronic 04/2019) 05/2018, 03/2019, 04/2019 Essential (primary) hypertension (Chronic) Hyperlipemia (Chronic) 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 There has been essentially no change. Electronically Signed: Zaheer Silverio, at 14:58 EDT , Service support , KUB X-Ray 08/11/19 13:30 IMPRESSION: Air-fluid level in the colon suggestive of diarrhea. Electronically Signed: Zaheer Silverio, at 14:56 EDT , Service support , Labs (Last 48 Hours) 08/13/19 07:30 COVID-19 (GOLD) Cancelled Consultations 08/02/19 18:47 Consult: Onc/Wound/senior net engineer Routine Comment: Reason for Consult:: Left heel pressure injury Operations: None Procedures: None Summary of Care Provided: The patient is a 79 year old Female with below past medical history hospitalized for fecal impaction of colon, complicated by pleural effusion requiring thor acentesis, pneumonia ruled out, admitted to TCU with debility, here for rehabilitation, strengthening, prior to disposition determination. Resident dying of chronic systolic congestive heart failure. Discharge home with [facility]. Patient Problems: Active and Suspected Problems (Last Reviewed 07/04/19 @ 13:[address] Nahid Hernandez MD) Pleural effusion (Acute) - Physical Exam Vitals/I&O's: Vital Signs Temp Pulse Resp BP Pulse Ox 98.1 F 83 22 H 125/68 H 99 08/14/19 14:46 08/14/19 16:55 08/14/19 14:54 08/14/19 14:46 08/14/19 15:03 Oxygen Flow Rate (L/min) 3 Oxygen Delivery Method Nasal Cannula Weight: 50.6 kg Body Mass Index (BMI) 20.4 Intake and Output for Last 24 Hours 08/12/19 08/13/19 08/14/19 23:59 23:59 23:59 Intake Total 480 / 480 360 / 360 360 / 360 Balance 480 / 480 360 / 360 360 / 360 Laboratory Results 08/13/19 07:30: COVID-19 (GOLD) Cancelled Current Medications Acetaminophen (Tylenol) 1,000 mg PO Q6H PRN PRN PRN Reason: Pain Score 1-10/10 Last Admin: 08/14/19 17:09 Dose: 1,000 mg Documented by: Albuterol/Ipratropium (Duoneb) 3 ml INHALATION Q6HWA.RT PRN PRN Reason: WHEEZING Last Admin: 08/14/19 14:54 Dose: 3 ml Documented by: Atorvastatin Calcium (Lipitor) 20 mg PO QHS [facility] Last Admin: 08/13/19 22:52 Dose: 20 mg Documented by: Brimonidine Tartrate (Brimonidine 0.2% 5ml Bottle) 1 drop EACH EYE BID [facility] Last Admin: 08/14/19 16:56 Dose: 1 drop Documented by: Calamine/Phenol (Calmoseptine Ointment) 1 applic TOPICAL BID [facility]; Protocol Last Admin: 08/14/19 16:58 Dose: 1 applicatio Documented by: Furosemide (Lasix) 40 mg PO 0600,1400 [facility] Last Admin: 08/14/19 13:46 Dose: 40 mg Documented by: Latanoprost (Xalatan Opthalmic) 1 drop EACH EYE QHS [facility] Last Admin: 08/13/19 22:57 Dose: 1 drop Documented by: Metoprolol Tartrate (Lopressor (Beta Brandyn)) 50 mg PO BID [facility] Last Admin: 08/14/19 16:55 Dose: 50 mg Documented by: Mirtazapine (Remeron) 15 mg PO QHS [facility] Last Admin: 08/13/19 22:52 Dose: 15 mg Documented by: Nitroglycerin (Nitrostat) 0.4 mg SUBLINGUAL Q5M PRN PRN Reason: CARDIAC/CHEST PAIN Polyethylene Glycol (Miralax) 17 gm PO DAILY [facility] Last Admin: 08/14/19 06:23 Dose: Not Given Documented by: Ranolazine (Ranexa) 500 mg PO BID [facility] Last Admin: 08/14/19 17:00 Dose: 500 mg Documented by: Sacubitril/Valsartan (Entresto 49 Mg-51 Mg Tablet) 1 each PO BID [facility] Last Admin: 08/14/19 17:00 Dose: 1 each Documented by: Sodium Chloride () 10 - 40 ml IV UD PRN PRN Reason: SALINE FLUSH Last Admin: 08/03/19 12:35 Dose: 10 ml Documented by: Timolol Maleate (Timoptic) 1 drop EACH EYE BID [facility] Last Admin: 08/14/19 16:56 Dose: 1 drop Documented by: Discharge Diet: No Restrictions Discharge Activity: Return to Normal Activity, Use Walker Weight Bearing Status: Weight bearing as tolerated Home Medications: Medications to take at Discharge atorvastatin 20 mg tablet 20 mg PO QHS 06/21/18 Brimonidine Tartrate/Timolol [Combigan Eye Drops] 1 drp EACH EYE BID 02/13/19 Latanoprost 1 drp EACH EYE QHS 02/13/19 Lifitegrast [Xiidra] 1 ea OP BID 04/29/19 Nitroglycerin [Nitrostat] 0.4 mg SUBLINGUAL Q5M PRN 05/27/19 Furosemide [Lasix] 40 mg PO BID@1000,1800 #60 tab 06/11/19 ranolazine 500 mg tablet,extended release,12 hr 500 mg PO BID #180 tab 07/23/19 Menthol/Lanolin/Calamine/Znox [Calmoseptine Ointment] 1 applic TOPICAL BID 07/31/19 Mirtazapine [Remeron] 7.5 mg PO QHS 07/31/19 Polyethylene Glycol 3350 [Miralax] 17 gm PO DAILY 08/02/19 Acetaminophen [Tylenol] 1,000 mg PO Q6H PRN PRN tab 08/14/19 Metoprolol Tartrate [Lopressor (beta brandyn)] 50 mg PO BID tab 08/14/19 Primary Care Physician: Ted Georges Chi, MD [Primary Care Provider] - Please follow up with your Primary Care Physician in: As needed. Please Follow Up With: Nahid Hernandez MD When: As needed. Disposition: Home with Hospice Minutes spent on discharge:: 30 Patient Condition:: Poor Medical Necessity - Tobacco Use Smoking Status: Never smoker Tobacco Use: Non-smoker Meaningful Use Info Meaningful Use Diagnoses (Choose all that apply): None applicable
--- NOTE | 2019-08-14 17:36 | NURSING ---
report called & given to Latonia, hospice nurse at this time.
--- NOTE | 2019-08-15 07:23 | MDS.RN ---
Information for the mds was obtained from review of the clinical record, interview of resident, staff, and direct observation of resident's care.
--- NOTE | 2019-08-15 07:26 | MDS.RN ---
Information for the mds was obtained from review of the clinical record, interview of resident, staff, and direct observation of resident's care.
== END 2019-08-14 18:00 | disposition hospice, home (50) | DRG 292 ==
PROVIDERS: Admitting Provider Family Medicine Geriatric Medicine; PCP Family Medicine Geriatric Medicine; Visit Provider Family Medicine Geriatric Medicine
DX: I13.0 Hypertensive heart and chronic kidney disease with heart failure and stage 1 through stage 4 chronic kidney disease, or unspecified chronic kidney disease (principal); I50.42 Chronic combined systolic (congestive) and diastolic (congestive) heart failure; I25.10 Atherosclerotic heart disease of native coronary artery without angina pectoris; E78.5 Hyperlipidemia, unspecified; N18.3 Chronic kidney disease, stage 3 (moderate); F41.9 Anxiety disorder, unspecified; G40.909 Epilepsy, unspecified, not intractable, without status epilepticus; D50.9 Iron deficiency anemia, unspecified; I25.2 Old myocardial infarction; M06.9 Rheumatoid arthritis, unspecified; E87.6 Hypokalemia; F32.9 Major depressive disorder, single episode, unspecified; H40.9 Unspecified glaucoma
CPT/HCPCS: 36415; 71046; 74018; 80048; 85025; 87635; 92610; 94640; 97110; 97116; 97162; 97166; 97530; 97535; 97802; G2023; A4216; U0004